=== PATIENT | male | born 1985 | race Caucasian/White ===

== ENCOUNTER 2017-08-13 11:34 | Outpatient (CLI) | payer MEDICAID, SELFPAY ==
[2017-08-13] VITALS (11 sets, daily range): BP systolic 97–110; BP diastolic 59–74; PULSE 70–87; RESP 16–18; TEMP 36.1–36.6; O2SAT 92–99; BMI 23.5
--- NOTE | 2017-08-13 11:55 | ED.VISSUMM ---
- ER Visit Summary Date of Service: 08/13/17 Chief Complaint: pulled pork stuck in my throat History of Present Illness: The patient is a 32 M no history of esophageal stenosis. Patient had several episodes in the past we had meat stuck in throat. He has had upper endoscopy and foreign body removed by Dr. Ga in the past. Patient states glucagon never works and does anymore try it. Physical Examination: Vital signs are stable, afebrile, actively retching. No respiratory distress. HEENT exam unremarkable. Posterior pharynx normal. Neck nontender lungs are clear equal symmetrical bilaterally. Heart regular rhythm no murmur. Abdomen soft nontender. Remedies moves all 4. Neurovascular intact. Neurologic exam unremarkable. Test Results: None Emergency Department Course and Treatment: IV will be started patient is refusing even to attempt to try glucagon. I have GI on page. Treatment Plan: I spoke to Dr. Ga who recognized the patient's name. Patient will be down endoscopy and Dr. Trinidad will come in for upper endoscopy for meat bolus impaction. Disposition: Discharge Impression: Acute esophageal food impaction History of esophageal stenosis ED Disposition - Plan for ED Patient: Chief Complaint: Foreign Body Referrals: NOT,DEFINED [NON-STAFF] -
--- NOTE | 2017-08-13 11:57 | NURSING ---
DR FERNANDEZ PAGED
--- NOTE | 2017-08-13 12:22 | PCA ---
DR FERNANDEZ CALLED FOR DR BILLS
--- NOTE | 2017-08-13 13:34 | PCM.OP.BLANK ---
Operative Report Date of Procedure: 08/13/17 Preop diagnosis: Patient with foreign body in the esophagus Postop diagnosis: EGD with foreign body removal Anesthesia: Provided the MAC Instrument: Instrument Olympus upper endoscope Informed consent was taken prior to procedure. The patient was brought to the endoscopy suite[ she] was placed left shoulder down. Retropharynx was sprayed with topical Cetacaine spray. Anesthesia provided the MAC. The scope was passed under direct visualization down into the esophagus. The proximal esophagus at about 18 cm was a foreign body. He was noted to have multiple rings consistent with eosinophilic esophagitis. Using a pair several pieces of the piece of meat were grasped and pulled away a tripod was also used several pieces of the meat were pulled away with a tripod. After several more pieces were removed with the snare the meat was dislodged down the esophagus multiple rings of the esophagus was passed all the way to the GE junction the Z line was 39 cm from incisors there was a hiatal hernia. Was easily insufflated the bulb of the duodenum was normal tubal rings packed inside at 18 cm was quite swollen and narrowed was withdrawn the patient tolerated procedure well Impression: Foreign body of the esophagus status post impaction with a snare and a tripod Plan: Patient needs to follow-up with his transition lead treatment for eosinophilic esophagitis he needs a dilatation.
--- NOTE | 2017-08-20 12:33 | PCM.PROGNOTE ---
Subjective: Foreign body in the esophagus - Physical Exam General: Alert, Oriented x3 HEENT: Atraumatic, EOMI, Normocephalic Cardiovascular: Regular rate, No murmurs Abdomen: Bowel Sounds Present, Soft, Non Tender Extremities: No edema, Capillary Refill Less than 3 Seconds Skin: No rashes - multiple tatooes, No breakdown Neurological: Cranial nerves II-XII grossly intact Psych/Mental Status: Normal Affect, Appropriate Vital Signs Temp Pulse Resp BP Pulse Ox 97.9 F 71 16 104/74 92 08/13/17 14:11 08/13/17 14:11 08/13/17 14:11 08/13/17 14:11 08/13/17 14:11 Oxygen Delivery Method Room Air Weight: 68.039 kg Body Mass Index (BMI) 23.5
--- NOTE | 2017-08-20 12:38 | PCM.HP.STD ---
History of Present Illness Date of Admission: 08/13/17 Chief Complaint: Foreign body in the esophagus The patient is a 32 year old M with a piece of meat stuck in the esophagus. He has a history of eosinophilic esophagitis. Has multiple visits to the emergency room with foreign bodies in the esophagus.] Past Medical History Allergies latex Allergy (Mild, Verified 08/13/17 11:37) Rash cyclobenzaprine HCl [From Flexeril] Allergy (Verified 08/13/17 11:37) Angioedema Home Medications: Ambulatory Orders Medication Instructions Recorded Albuterol Inhaler [Ventolin Hfa 2 puff INHALATION Q4H PRN PRN 11/19/15 (SP)] Lives: Alone Smoking Status: Current every day smoker - *Family History Maternal History Items: Unknown VTE Information - Inpt Only VTE Present on Admission: No - not indicated - Physical Exam General: Alert, Oriented x3, Cooperative HEENT: Atraumatic, PERRLA, EOMI, Normocephalic Neck: Supple, No JVD, Negative Carotid Bruits Lungs: Clear to auscultation, Normal air movement Cardiovascular: Regular rate, No murmurs Abdomen: Bowel Sounds Present, Soft, Non Tender Extremities: No edema, Capillary Refill Less than 3 Seconds Vital Signs Temp Pulse Resp BP Pulse Ox 97.9 F 71 16 104/74 92 08/13/17 14:11 08/13/17 14:11 08/13/17 14:11 08/13/17 14:11 08/13/17 14:11 Oxygen Delivery Method Room Air Weight: 68.039 kg Body Mass Index (BMI) 23.5 Assessment/Plan 32-year-old male with a foreign body in the esophagus he will undergo upper endoscopy in the endoscopy suite today
== END 2017-08-13 14:35 | disposition home health service (06) ==
PROVIDERS: Visit Provider Internal Medicine Gastroenterology
DX: T18.128A Food in esophagus causing other injury, initial encounter (principal); X58.XXXA Exposure to other specified factors, initial encounter; Y93.9 Activity, unspecified; Y92.9 Unspecified place or not applicable; Y99.9 Unspecified external cause status; K20.0 Eosinophilic esophagitis; K22.2 Esophageal obstruction; K44.9 Diaphragmatic hernia without obstruction or gangrene; J45.909 Unspecified asthma, uncomplicated; Z72.0 Tobacco use
CPT/HCPCS: 43247; J7120; A4216; J1610

== ENCOUNTER 2018-02-18 18:02 | Emergency (ER) | payer MEDICAID, SELFPAY ==
[2018-02-18 18:03] VITALS: BP 115/94; PULSE 106; RESP 18; TEMP 36.2; O2SAT 100; BMI 21.4
--- NOTE | 2018-02-18 18:29 | EKG12_ITS ---
Test Reason : [facility] Blood Pressure : / mmHG Vent. Rate : 070 BPM Atrial Rate : 070 BPM P-R Int : 120 ms QRS Dur : 100 ms QT Int : 378 ms P-R-T Axes : 066 070 069 degrees QTc Int : 408 ms Sinus rhythm with marked sinus arrhythmia Otherwise normal ECG Confirmed by MARS JARRELL, JAY ([id number]), industrial editor DORITA MANUEL ([id number] on 02/22/2018 11:17:44 AM Referred By: KADIE Confirmed By:JAY CREWS MD
[2018-02-18] MEDS: LORazepam 1 MG Tablet PO (18:46)
[2018-02-18 19:08] LABS: Absolute Lymphocyte Count 2.38 X10^3/ul (0.83-4.51); Absolute Neutrophil Count 5.4 X10^3/uL (2.0-7.7); Basophil# 0.03 X10^3/uL; Basophil% 0.4 % (0-1); Eosinophil# 0.08 X10^3/uL; Hematocrit 46.1 % (40-54); Hemoglobin 16.4 g/dl (13.0-16.5); Lymphocyte # 2.38 X10^3/ul (4.0); Lymphocyte % 28.6 % (19-41); Mean Corp Hgb Conc 35.6 g/gl (32-36); Mean Corpuscular Hgb 32.2 pg (27.0-32.0); Mean Corpuscular Volume 90.6 fL (80-94); Mean Platelet Vol. 9.5 fl (6.2-12.0); Monocyte# 0.41 X10^3/uL; Monocyte% 4.9 % (0-10); Neutrophil % 64.9 % (47-70); Platelet Count 260 K/mm3 (150-450); RBC Distribution Width CV 13.2 % (11.6-14.6); RBC Distribution Width SD 43.1 fl (35.1-43.9); Red Blood Count 5.09 M/mm3 (4.6-6.2); White Blood Count 8.3 K/mm3 (4.4-11.0)
[2018-02-18 19:21] LABS: POSITIVE COUNT NO; POSITIVE DIFFERENTIAL NO; POSITIVE MORPHOLOGY NO
[2018-02-18 19:34] LABS: ALB/GLOB Ratio 1.1 RATIO (0.9-2.4); AST(SGOT) 54 U/L (15-37); Alanine Aminotransfer ALT/SGPT 127 U/L (16-61); Albumin, Serum 4.3 g/dL (3.2-5.0); Alkaline Phosphatase 93 U/L (45-117); Anion Gap 8 (5-15); BUN 15 mg/dL (7-18); BUN/Creat Ratio 14.2 RATIO (10-20); Calcium,Total 9.2 mg/dL (8.5-10.1); Chloride 104 mmol/L (98-107); Creatinine, Serum 1.06 mg/dL (0.70-1.30); EST Glomerular Filtration Rate 85 mL/min (>60); Est Glom Filt Rate - Afr Amer 102 mL/min (>60); Estimated Creatinine Clearance 83.47 ml/min; Globulin 3.8 g/dL (2.2-4.2); Glucose 75 mg/dL (74-106); Potassium 3.9 mmol/L (3.5-5.1); Protein, Total 8.1 g/dL (6.4-8.2); Sodium Level 138 mmol/L (136-145); Thyroid Stim Hormone (TSH) 0.62 uIU/mL (0.358-3.74)
[2018-02-18 19:48] LABS: Alcohol, Blood (Medical)-Serum < 3.0 mg/dL
--- NOTE | 2018-02-18 20:22 | NURSING ---
PT CONTINUES TO REFUSE EKG.
[2018-02-18 21:13] VITALS: RESP 18
[2018-02-18 22:00] VITALS: RESP 16
--- NOTE | 2018-02-18 22:52 | ED.DCSUM_ITS ---
- ER Visit Summary Date of Service: 02/18/18 Chief Complaint: Suicidal ideation History of Present Illness: The patient is a 32 M with a history of paranoid schizophrenia. He is also a methamphetamine user. He has been using and is not sleeping. He reports increasing symptoms, mainly of depression and guilty feelings. He is having thoughts of hurting himself. He says he feels out of control. He was brought in by police and has been pink slipped. Physical Examination: Heart rate 106 but otherwise vitals unremarkable. Afebrile. Patient is mildly agitated and seems to be responding to internal stimuli. He reports suicidal thoughts but no plan. Heart tachycardic but regular. Lungs clear. Test Results: EKG showed a sinus rhythm at a rate of 70 with no acute ischemia or infarction patterns. His CBC was normal. CMP showed a total bilirubin of 1.9, ALT 127, and AST 54. Urinalysis pending. TSH normal. Tox screen pending. Alcohol normal. Emergency Department Course and Treatment: Patient took Ativan voluntarily. He is resting on reevaluation. He did have suicide precautions. I am still awaiting urinalysis and a urine tox, but the patient will clearly need inpatient care. I am awaiting a crisis evaluation at the time of this dictation. Treatment Plan: As above Disposition: Admission pending crisis evaluation Impression: 1. Psychosis 2. Suicidal ideation 3. Methamphetamine abuse This note was generated with [employer] dictation software. It may contain incorrect words, spelling, and punctuation that were not noted in review of the chart prior to signing ED Disposition - Plan for ED Patient: Chief Complaint: Suicidal Referrals: Care Physician,No Primary [Primary Care Provider] -
[2018-02-18 23:00] VITALS: RESP 18
[2018-02-19] VITALS (11 sets, daily range): BP systolic 101–105; BP diastolic 67–72; PULSE 64–69; RESP 14–20; O2SAT 15–99
[2018-02-19 02:57] LABS: Bacteria 0 SEEN /hpf (None Seen); Red Blood Cells-Urine 0 SEEN /hpf (0-5); Squamous Epithelial Cells - UA 0 SEEN /hpf (0-5)
[2018-02-19 02:59] LABS: Color, Urine Yellow (Yellow); Glucose, Dipstick Normal (Normal); Ketone-Dipstick 50 mg/dl (Negative); Leukocyte Esterase-Dipstick 25 /ul (Negative); Nitrite-Dipstick Negative (Negative); Occult Blood-Urine Negative /ul (Negative); Protein-Dipstick 15 mg/dl (Negative); Specific Gravity, Urine 1.015 (1.002-1.030); Urine Bilirubin Dipstick Negative (Negative); Urine Clarity Clear (Clear); Urine Urobilinogen 4 mg/dl (Normal); Urine pH 6.5 (5.0 - 8.0)
[2018-02-19 03:09] LABS: Mucous, Urine 3+ /hpf (<or=2+); Transitional Epithelial - Ur 0-5 SEEN /hpf (0-5); White Blood Cells 0-5 SEEN /hpf (0-5)
[2018-02-19 03:21] LABS: Amphetamine Urine VISTA POSITIVE (<1000 ng/mL); Barbiturate Urine VISTA NEGATIVE (< 200 ng/mL); Benzodiazepine Urine VISTA NEGATIVE (< 200 ng/mL); Cocaine Urine VISTA NEGATIVE (< 300 ng/mL); Ecstacy Urine VISTA POSITIVE (< 500 ng/mL); Methadone Urine VISTA NEGATIVE (< 300 ng/mL); PCP Urine VISTA NEGATIVE (< 25 ng/mL); THC Urine VISTA POSITIVE (< 50 ng/mL); Vista UDS pH Range 6
== END 2018-02-19 10:54 | disposition home or self-care (01) ==
PROVIDERS: Emergency Provider Emergency Medicine
DX: F29 Unspecified psychosis not due to a substance or known physiological condition (principal); R45.851 Suicidal ideations; F15.10 Other stimulant abuse, uncomplicated; F20.0 Paranoid schizophrenia; J45.909 Unspecified asthma, uncomplicated; Z86.19 Personal history of other infectious and parasitic diseases; Z79.899 Other long term (current) drug therapy; Z72.0 Tobacco use
CPT/HCPCS: 36415; 80053; 80307; 80320; 81001; 84443; 85025; 93005; 99283; G0480

== ENCOUNTER 2018-03-22 14:03 | Emergency (ER) | payer MEDICAID, SELFPAY ==
[2018-03-22 14:05] VITALS: BP 95/71; PULSE 80; PULSE 82; RESP 14; TEMP 36.7; O2SAT 99; BMI 20.8
[2018-03-22] MEDS: Propofol 200 MG/20 ML Vial IV BOLUS (14:57)
--- NOTE | 2018-03-22 15:08 | NURSING ---
ENDO IN THE ROOM
--- NOTE | 2018-03-22 15:09 | ED.VISSUMM ---
- ER Visit Summary Date of Service: 03/22/18 Chief Complaint: Pharyngeal obstruction secondary to food bolus History of Present Illness: The patient is a 32 M because of esophageal obstruction secondary to chicken food bolus. He has not been able to swallow his own secretions since 2200 last evening. This is occurred several times. He has never had to undergo dilation of esophagus. He denies fever, chills night sweats. He denies chest pain, cough or shortness of breath. He has no other complaints. Please read written note for complete detail Physical Examination: Vital signs are unremarkable. Head is atraumatic normocephalic. Pupils are equal round reactive. Extraocular muscles are intact. TMs are pearly white with landmarks noted. Nares patent with no drainage. Posterior pharynx without erythema or exudate. Uvula is midline. There is no dysphonia or dysphasia. Trachea is midline. There is no stridor with auscultation of the neck. Heart is regular without murmur, gallop or rub. S1 and S2 are normal. Lungs are clear to auscultation with good movement of air bilaterally. Neuro exam is nonfocal. Patient is expectorating his saliva into a emesis bag because he cannot swallow. Test Results: None Emergency Department Course and Treatment: Dr. Waldrop was paged and he states he would see patient for emergent EGD to remove obstructing chicken food bolus. He requested sedation with propofol. Patient was consented for sedation with propofol. He denies allergy to soy products or egg products. He has had no complication with prior sedation. He was given opportunity ask questions and none were asked. He has not eaten or had anything to drink since last evening. Total time of procedure 13 minutes 45 seconds. Patient received multiple boluses of propofol to achieve desired effect for Dr. Waldrop to remove chicken obstructing food bolus proximal esophagus. Treatment Plan: Carafate slurry 4 times a day and follow-up with Dr. Waldrop in 1 week Disposition: Once patient is able to answer questions and walk on his own he will be discharged to home with significant other Impression: Proximal esophageal obstruction secondary to food bolus, chicken This note was generated with [employer] dictation software. It may contain incorrect words, spelling, and punctuation that were not noted in review of the chart prior to signing ED Disposition - Plan for ED Patient: Disposition: Home or Assisted Living Chief Complaint: Foreign Body Instructions: ED Foreign Body Esophageal Rslv Prescriptions: Sucralfate [Carafate] 1 gm PO 4X/DAY #60 tab Referrals: Care Physician,No Primary [Primary Care Provider] - Malik Waldrop MD [STAFF PHYSICIAN] - 1 Week Additional Instructions: Liquid diet for the next 5-7 days then advance as tolerated
[2018-03-22 15:10] VITALS: BP 125/79; BP 97/71; PULSE 70; RESP 14
[2018-03-22 15:15] VITALS: BP 102/65; BP 125/79; PULSE 68
--- NOTE | 2018-03-22 15:16 | PCM.HP.STD ---
Problem List (1) Foreign body in esophagus Status: Acute Qualifiers: Encounter type: sequela Qualified Code(s): T18.108S - Unspecified foreign body in esophagus causing other injury, sequela History of Present Illness Date of Admission: 03/22/18 The patient is a 32 M because of esophageal obstruction secondary to chicken food bolus. He has not been able to swallow his own secretions since 2200 last evening. This is occurred several times. He has never had to undergo dilation of esophagus. He denies fever, chills night sweats. He denies chest pain, cough or shortness of breath. He has no other complaints. Patient reports that he has had numerous foreign bodies over this past year and has undergone numerous esophagogastroduodenoscopies with removal of his foreign bodies. He states that he has a tortuous esophagus for which nothing can be done. In reading [address] Ga's previous notes he was noted to have a eosinophilic esophagitis and he recommended a balloon dilatation. Past Medical History Past Medical History (Chronic Problems): Chronic Problems Unspecified mood [affective] disorder (Chronic) Methamphetamine addiction (Chronic) Asthma (Chronic) Hepatitis C (Chronic) Tobacco dependence (Chronic) Dysphasia (Chronic) Eosinophilic esophagitis (Chronic) Allergies latex Allergy (Mild, Verified 03/22/18 14:04) Rash cyclobenzaprine HCl [From Flexeril] Allergy (Verified 03/22/18 14:04) Angioedema Home Medications: Ambulatory Orders Medication Instructions Recorded Albuterol Inhaler [Ventolin Hfa] 2 puff INHALATION Q4H PRN PRN 11/19/15 Asenapine Maleate [Saphris] 10 mg SUBLINGUAL QHS 09/17/17 Fluticasone Propionate [Flovent 2 puff INHALATION DAILY 09/17/17 Hfa] Atomoxetine HCl [Strattera] 40 mg PO DAILY 02/19/18 Sucralfate [Carafate] 1 gm PO 4X/DAY #60 tab 03/22/18 Surgical History: tonsillectomy, - - Previous EGDs with foreign body removal Smoking Status: Current every day smoker - *Family History Maternal History Items: No pertinent history Paternal History Items: Unknown Review of Systems Constitutional: Denies: Chills, Fever, Weight Change Cardiovascular: Denies: Chest Pain, Chest Pressure, Chest Tightness, Palpitations Respiratory: Denies: Cough, Hemoptysis, Shortness of breath at rest, Shortness of breath upon exertion, Wheezing Gastrointestinal: Denies: Abdominal Pain, Constipation, Diarrhea, Hematemesis, Nausea, Melena, Vomiting VTE Information - Inpt Only VTE Present on Admission: No VTE Mechan Device Prophylaxis: None VTE Pharm Prophylaxis ordered?: No Reason prophylaxis not ordered:: Treatment Not Indicated Patient Problems: Active and Suspected Problems Foreign body in esophagus (Acute) - Physical Exam General: Alert, Oriented x3 Neck: Supple, No JVD Lungs: Clear to auscultation Cardiovascular: Regular rate, Regular Rhythm, No murmurs Abdomen: Bowel Sounds Present, Soft, Non Tender, Non-Distended Vital Signs Temp Pulse Resp BP Pulse Ox 98.0 F 82 14 95/71 99 03/22/18 14:05 03/22/18 14:05 03/22/18 14:05 03/22/18 14:05 03/22/18 14:05 Oxygen Delivery Method Room Air Weight: 129 lb 3.054 oz Body Mass Index (BMI) 20.8 Assessment/Plan Active and Suspected Problems Foreign body in esophagus (Acute) My plan is perform esophagogastroduodenoscopy and removal foreign body. I reviewed potential risk with the patient being bleeding and infection and most severe esophageal perforation. I did inform him that if I were to perforate him I would have to send him to a tertiary referral center for repair. He understood these risks and was willing to proceed.
[2018-03-22 15:20] VITALS: BP 106/67; BP 125/79; PULSE 75; O2SAT 98
--- NOTE | 2018-03-22 15:21 | PCM.OPRPT ---
Problem List (1) Foreign body in esophagus Status: Acute Qualifiers: Encounter type: sequela Qualified Code(s): T18.108S - Unspecified foreign body in esophagus causing other injury, sequela Report of Operation Date of Procedure: 03/22/18 Pre-Operative Diagnosis: T18.108S esophageal foreign body sequela of encounters Post-Operative Diagnosis: Same Surgery/Procedure Performed:: [id number] esophagogastroduodenoscopy with removal of foreign body Type of Anesthesia:: MAC Anesthesiologist: Corky Coleman Description of Procedure: Patient was brought into the emergency department in room 1. The back of his throat was sprayed with benzocaine spray. A bite-block was placed. He was placed in the left lateral decubitus position. He was given graded anesthesia. The Olympus scope was inserted into the back of the oropharynx and directly down into the esophagus where I immediately met a form body of chicken which had been properly chewed. I took several pieces of this out with a tripod. Loosened it up significantly to where the remaining small amounts of tissue were easily able to be pushed down through the remaining part of the esophagus and into the stomach. I cleared the entire esophagus. He did have some irritation in the upper esophagus but no signs of linear tears in the remaining part of the esophagus did look normal. It did appear to have some diffuse spasming. The stomach all appeared normal as did the duodenum. There was no signs of any lesions. The esophagus itself easily was traversed there was no signs of any stricturing or possible need for dilatation. I am going to see this patient back in follow-up. I think he would benefit from esophageal manometry to see how his esophagus is functioning. - Admit VTE Documentation VTE Present on Admission: No VTE Mechan Device Prophylaxis: None VTE Pharm Prophylaxis ordered?: No Reason prophylaxis not ordered:: Treatment Not Indicated
--- NOTE | 2018-03-22 15:24 | ED.RN ---
At 1500 Endo was at bedside for procedure. Endo staff did all procedural charting. Dr. Waldrop and Dr. Coleman at bedside for procedure.
[2018-03-22 15:25] VITALS: BP 105/69; BP 125/79; PULSE 66; O2SAT 96
[2018-03-22 15:52] VITALS: BP 95/70; PULSE 61; RESP 13; O2SAT 96
--- NOTE | 2018-03-22 15:59 | NURSING ---
Pt back to baseline. A&Ox3. GCS 15. Pt given discharge instructions and clothes to get dressed. Pt denies questions. Pt's girlfriend checked in as a patient as well and requested him to go to her room when he was done. Pt updated. Pt sent to room 13 with girlfriend.
== END 2018-03-22 16:01 | disposition home or self-care (01) ==
PROVIDERS: Surgery; Emergency Provider Emergency Medicine
PROC: 0DJ08ZZ Inspection of Upper Intestinal Tract, Via Natural or Artificial Opening Endoscopic (ICD-10-PCS; CPT 43235; principal; 2018-03-22 14:55)
DX: K22.2 Esophageal obstruction (principal); T18.108S Unspecified foreign body in esophagus causing other injury, sequela; Z72.0 Tobacco use
CPT/HCPCS: 43247; 99285; J7030

== ENCOUNTER 2018-08-05 02:44 | Emergency (ER) | payer SELFPAY ==
[2018-08-05] VITALS (16 sets, daily range): BP systolic 96–137; BP diastolic 47–95; PULSE 61–95; RESP 14–20; TEMP 36.7; O2SAT 95–100; BMI 22.2
[2018-08-05 03:01] LABS: Absolute Lymphocyte Count 2.18 X10^3/ul (0.83-4.51); Absolute Neutrophil Count 4.3 X10^3/uL (2.0-7.7); Basophil# 0.06 X10^3/uL; Basophil% 0.8 % (0-1); Eosinophil# 0.35 X10^3/uL; Eosinophils% 4.7 % (0-5); Hematocrit 42.2 % (40-54); Hemoglobin 15.4 g/dl (13.0-16.5); Lymphocyte # 2.18 X10^3/ul (4.0); Lymphocyte % 29.3 % (19-41); Mean Corp Hgb Conc 36.5 g/gl (32-36); Mean Corpuscular Hgb 32.8 pg (27.0-32.0); Mean Platelet Vol. 9.6 fl (6.2-12.0); Monocyte# 0.51 X10^3/uL; Monocyte% 6.9 % (0-10); Neutrophil # 4.33 X10^3/uL (2.7-7.7); Neutrophil % 58.2 % (47-70); Platelet Count 221 K/mm3 (150-450); RBC Distribution Width CV 12.4 % (11.6-14.6); RBC Distribution Width SD 40.3 fl (35.1-43.9); Red Blood Count 4.69 M/mm3 (4.6-6.2); White Blood Count 7.4 K/mm3 (4.4-11.0)
[2018-08-05 03:04] LABS: POSITIVE COUNT NO; POSITIVE DIFFERENTIAL NO; POSITIVE MORPHOLOGY NO
[2018-08-05] MEDS: LORazepam 1 MG Tablet PO ×2 (03:13→19:35)
--- NOTE | 2018-08-05 03:16 | ED.RN ---
SITTER AT THE BEDSIDE
[2018-08-05 03:19] LABS: Anion Gap 12 (5-15); BUN 14 mg/dL (7-18); BUN/Creat Ratio 14.7 RATIO (10-20); Calcium,Total 9.2 mg/dL (8.5-10.1); Chloride 106 mmol/L (98-107); Creatinine, Serum 0.95 mg/dL (0.70-1.30); EST Glomerular Filtration Rate 96 mL/min (>60); Est Glom Filt Rate - Afr Amer 116 mL/min (>60); Estimated Creatinine Clearance 99.01 ml/min; Glucose 143 mg/dL (74-106); Potassium 2.8 mmol/L (3.5-5.1); Sodium Level 144 mmol/L (136-145)
--- NOTE | 2018-08-05 03:39 | ED.DCSUM_ITS ---
- ER Visit Summary Date of Service: 08/05/18 Chief Complaint: Suicidal ideation History of Present Illness: The patient is a 33 M who presents with suicidal thoughts. He has had these for 2 days. He states that he cut himself on the left wrist 2 days ago. He is hearing voices in his head telling him to kill yourself. He takes no medications at home. He has diagnosed schizophrenic. He was admitted once before for this. He is established at the [facility] but missed last month's appointment because the skilled nursing would not take him to his appointment. Physical Examination: Vital signs reviewed. HEENT exam unremarkable. Heart is regular rate and rhythm without murmurs. Lungs are clear to auscultation. Abdomen is soft and nontender. Extremities reveal no edema. Skin exam reveals superficial lacerations to the left wrist. They do not need to be repaired. Neurologic exam normal. Psychiatric exam reveals suicidal thoughts. He has poor insight and poor judgment. He does not appear to be internally stimulated at this time. Test Results: Screening labs are negative except for potassium of 2.8. Tox screen alcohol negative Emergency Department Course and Treatment: Patient was discussed with crisis. Patient will likely be transferred to [facility] Treatment Plan: [] Disposition: Transfer Impression: Suicidal ideation This note was generated with [employer] dictation software. It may contain incorrect words, spelling, and punctuation that were not noted in review of the chart prior to signing ED Disposition - Plan for ED Patient: Chief Complaint: Suicidal Referrals: Care Physician,No Primary [Primary Care Provider] -
[2018-08-05 04:22] LABS: Amphetamine Urine VISTA NEGATIVE (<1000 ng/mL); Barbiturate Urine VISTA NEGATIVE (< 200 ng/mL); Benzodiazepine Urine VISTA NEGATIVE (< 200 ng/mL); Cocaine Urine VISTA NEGATIVE (< 300 ng/mL); Ecstacy Urine VISTA NEGATIVE (< 500 ng/mL); Methadone Urine VISTA NEGATIVE (< 300 ng/mL); PCP Urine VISTA NEGATIVE (< 25 ng/mL); THC Urine VISTA NEGATIVE (< 50 ng/mL); Vista UDS pH Range 6
[2018-08-05 04:44] LABS: Alcohol, Blood (Medical)-Serum < 3.0 mg/dL
--- NOTE | 2018-08-05 06:19 | ED.RN ---
THIS NURSE SPOKE WITH THE NURSE AT [facility]. REQUESTING K+ BE TREATED AND REDRAWN. WILL NOT ACCEPT UNLESS POTASSIUM IS 3.5 OR ABOVE
--- NOTE | 2018-08-05 07:41 | ED.RN ---
PT PLACED ON SENIOR BUSINESS PROCESS ANALYST D/T K RIDERS INFUSING. SITTER AT BEDSIDE
--- NOTE | 2018-08-05 09:26 | ED.RN ---
[facility] CALLED AND SAID [facility] IS WAITING ON POTASIUM RESULTS THEN THEY WILL DECIDE IF THEY CAN TAKE THE PATIENT.
[2018-08-05 12:04] LABS: Potassium 3.4 mmol/L (3.5-5.1)
--- NOTE | 2018-08-05 12:51 | ED.RN ---
[facility] CALLED FOR VERIFICATION THAT PT IS IN ER. PT GAVE CONSENT TO INFORM COURTS OF STATUS.
[2018-08-05 14:33] LABS: Potassium 3.7 mmol/L (3.5-5.1)
== END 2018-08-05 20:24 | disposition short-term general hospital (02) ==
PROVIDERS: Emergency Medicine; Emergency Provider Emergency Medicine
DX: R45.851 Suicidal ideations (principal); Z72.0 Tobacco use
CPT/HCPCS: 36415; 80048; 80307; 80320; 84132; 85025; 96365; 96366; 99285; J7030; A4216; G0480

== ENCOUNTER 2019-08-12 00:54 | Emergency (ER) | payer MEDICAID, SELFPAY ==
[2019-08-12] VITALS (9 sets, daily range): BP systolic 91–144; BP diastolic 54–89; PULSE 57–88; RESP 14–22; TEMP 37.1; O2SAT 94–100; BMI 22.9
--- NOTE | 2019-08-12 01:03 | ED.DCSUM_ITS ---
History of Present Illness Chief Complaint: Foreign Body Informant: Patient Onset: Today Context: Sudden Onset Timing: Continuous Current Severity: Moderate Maximum Severity: Moderate Narrative: The patient presents complaining of esophageal foreign body. The patient has a history of prior esophageal foreign body. He states he was at [facility]. He was eating an apple. He states that a piece got stuck. He states he has been unable to swallow because of it. He has had this multiple times before. He states that his last endoscopy was about 2 years ago. He states that he has a twirling esophagus. He denies other injury. He denies any fevers or chills. He is otherwise been in his normal state of health. Prior similar symptoms: Yes Recent Illness/Hospitalization: No Past Medical History - Allergies and Home Meds Allergies/Adverse Reactions: Allergies latex Allergy (Mild, Verified 08/12/19 00:54) Rash cyclobenzaprine HCl [From Flexeril] Allergy (Verified 08/12/19 00:54) Angioedema Primary Care Physician: Care Physician,No Primary [Primary Care Provider] - Prior records reviewed: Yes Past Medical History: - - Bipolar disorder Surgical History: tonsillectomy, - - Previous EGDs with foreign body removal Smoking Status: Current every day smoker - Family History Maternal Family History: Reports: No pertinent history Paternal Family History: Reports: Unknown Review of Systems General: Denies: Chills, Fever, Sweats Eyes: Denies: Visual changes - bilaterally, Diplopia ENT: Denies: Rhinorrhea, Sore throat Cardiovascular: Denies: Chest pain, Palpitations Respiratory: Denies: Dyspnea, Cough, Dyspnea on exertion Gastrointestinal: Denies: Abdominal pain, Nausea, Vomiting, Diarrhea, Melena, Hematochezia Genitourinary: Denies: Dysuria, Hematuria, Frequency Musculoskeletal: Denies: Back pain, Extremity Pain Skin: Denies: Rash, Wounds Neurological: Denies: Headache, Weakness, Numbness Physical Exam Vital Signs/Narrative: Vital Signs Temp Pulse Resp BP Pulse Ox 08/12/19 00:55 98.7 F 88 17 144/89 H 98 Inital Vital Signs reviewed: Yes General: Well nourished, Well developed, No Acute Distress Head: Normocephalic, Atraumatic Eyes: Perrl, EOMI ENT: Moist mucous membranes, No rhinorrhea Neck: Supple, Nontender Cardiovascular: Regular rate, Regular rhythm, No murmurs Respiratory: No distress, CTA bilaterally, Chest nontender Abdomen: Soft, Nontender, Nondistended, Normal bowel sounds Back: Nontender, Normal Inspection Extremities: Nontender, No edema Skin: Normal color, No rash Neurological: Alert, Oriented x3, Cranial nerves II-XII grossly intact, Normal Strength, Normal Sensation Psychological: Normal affect, Normal Mood Diagnostic/Tx/Re-eval - Medical Decision Making IV was established. The patient was given fluids and glucagon. He had no resolution. We did attempt [employer] with no prevail. I did discuss the patient with Dr. Waldrop, on-call for surgery who had done endoscopy on the patient before. He did come in. The patient underwent conscious sedation by myself. He was given 100 mg total of propofol. The foreign body was able to be pushed through. The patient had no complications of sedation. At this point, he will be discharged home with outpatient follow-up. Impression 1. Esophageal foreign body 2. Conscious sedation by ED physician ED Disposition - Plan for ED Patient: Instructions: ESOPHAGEAL FOREIGN BODY, Resolved Referrals: Alexis Vazquez MD [NON-STAFF] - Malik Waldrop MD [STAFF PHYSICIAN] -
[2019-08-12] MEDS: Glucagon 1 MG/ML Syringe IV (01:08)
[2019-08-12] MEDS: 0.9% Normal Saline 1,000 ML 250 ML IV (01:11)
--- NOTE | 2019-08-12 02:29 | ED.RN ---
dr kenney at the bedside going over risk and benefits with pt. pt signed permit.
[2019-08-12] MEDS: Propofol 200 MG/20 ML Vial IV BOLUS (02:33)
--- NOTE | 2019-08-12 02:43 | OP.ENDO_ITS ---
08/12/2019 No Primary Care Physician Re : Upper GI endoscopy procedure for Josafat Alvarenga Dear Care Physician This procedure was performed on Monday, August 12, 2019. My impressions and recommendations are as follows: Impressions : - Food in the lower third of the esophagus. Removal was successful. - Normal stomach. No specimens collected. - Normal duodenal bulb. No specimens collected. Recommendations : - Discharge patient to home. - Mechanical soft diet today. - Continue present medications. - Repeat upper endoscopy PRN for retreatment. - Return to primary care physician PRN. My findings are described in the full procedure note, which is enclosed. If I can be of further assistance, please feel free to contact me at Doctor phone number(s): , Fax: [phone], Work: . Sincerely, MD Malik Tompkins MD 08/12/2019 2:42:46 AM This report has been signed electronically.
--- NOTE | 2019-08-12 02:46 | HP.PCM_ITS ---
Problem List (1) Foreign body in esophagus Status: Acute Qualifiers: Encounter type: subsequent encounter Qualified Code(s): T18.108D - Unspecified foreign body in esophagus causing other injury, subsequent encounter History of Present Illness Date of Admission: 08/12/19 The patient presents complaining of esophageal foreign body. The patient has a history of prior esophageal foreign body. He states he was at [facility]. He was eating an apple. He states that a piece got stuck. He states he has been unable to swallow because of it. He has had this multiple times before. He states that his last endoscopy was about 2 years ago. He states that he has a twirling esophagus. He denies other injury. He denies any fevers or chills. He is otherwise been in his normal state of health. Past Medical History Past Medical History (Chronic Problems): Chronic Problems Unspecified mood [affective] disorder (Chronic) Methamphetamine addiction (Chronic) Asthma (Chronic) Hepatitis C (Chronic) Tobacco dependence (Chronic) Dysphasia (Chronic) Eosinophilic esophagitis (Chronic) Allergies latex Allergy (Mild, Verified 08/12/19 00:54) Rash cyclobenzaprine HCl [From Flexeril] Allergy (Verified 08/12/19 00:54) Angioedema Home Medications: Ambulatory Orders Medication Instructions Recorded NK 08/05/18 Surgical History: tonsillectomy, - - Previous EGDs with foreign body removal Psychiatric History: No pertinent psych hx Smoking Status: Current every day smoker Tobacco Use: Cigarettes - *Family History Maternal History Items: No pertinent history Paternal History Items: Unknown Review of Systems Gastrointestinal: Reports: Nausea, Vomiting VTE Information - Inpt Only VTE Present on Admission: No VTE Mechan Device Prophylaxis: None VTE Pharm Prophylaxis ordered?: No Reason prophylaxis not ordered:: Treatment Not Indicated - Physical Exam General: Alert, Oriented x3 Lungs: Clear to auscultation Cardiovascular: Regular rate, Regular Rhythm, No murmurs Abdomen: Bowel Sounds Present, Soft, Non Tender, Non-Distended Vital Signs Temp Pulse Resp BP Pulse Ox 98.7 F 67 16 101/62 96 08/12/19 00:55 08/12/19 02:42 08/12/19 02:42 08/12/19 02:42 08/12/19 02:42 Oxygen Flow Rate (L/min) [3] 4 Oxygen Delivery Method [3] Nasal Cannula Oxygen Delivery Method [2] Nasal Cannula Oxygen Delivery Method [1 ( Nasal Cannula Initial Baseline)] Oxygen Delivery Method Room Air Weight: 146 lb 6.191 oz Body Mass Index (BMI) 22.9 Assessment/Plan All Active Problems Foreign body in esophagus (Acute) ARF (acute renal failure) (Acute) Right arm cellulitis (Acute)
[2019-08-12] MEDS: DiphenhydrAMINE 25 MG Capsule 50 MG PO (03:09)
== END 2019-08-12 04:00 | disposition home or self-care (01) ==
PROVIDERS: Surgery; Emergency Provider Emergency Medicine
PROC: 0DJ08ZZ Inspection of Upper Intestinal Tract, Via Natural or Artificial Opening Endoscopic (ICD-10-PCS; CPT 43235; principal; 2019-08-12 02:30)
DX: T18.128A Food in esophagus causing other injury, initial encounter (principal); T18.108A Unspecified foreign body in esophagus causing other injury, initial encounter; F17.200 Nicotine dependence, unspecified, uncomplicated; F31.9 Bipolar disorder, unspecified; Z91.040 Latex allergy status; J45.909 Unspecified asthma, uncomplicated; B18.2 Chronic viral hepatitis C
CPT/HCPCS: 43247; 99285; J7030; A4216; J1610

== ENCOUNTER 2019-09-22 21:34 | Emergency (ER) | payer MEDICAID, SELFPAY ==
[2019-08-12 00:55] VITALS: BMI 22.9
[2019-09-22 21:36] VITALS: BP 139/75; PULSE 86; RESP 16; TEMP 36.6; O2SAT 98; BMI 21.9
--- NOTE | 2019-09-22 21:45 | ED.DCSUM_ITS ---
History of Present Illness Chief Complaint: Fall Informant: Patient Onset: Today Context: Sudden Onset Timing: Continuous Current Severity: Moderate Maximum Severity: Moderate Narrative: The patient presents to the emergency department with back pain and hip pain after fall. Patient states that he slipped over his dog. He ended up sliding down 14 stairs. He struck his back and his left hip. Since then, he has had pain and spasm. He did not strike his head. He denies loss of consciousness. The patient does have a history of prior narcotic abuse but has been clean for some time. He denies any fevers or chills. Prior similar symptoms: No Recent Illness/Hospitalization: No Past Medical History - Allergies and Home Meds Allergies/Adverse Reactions: Allergies latex Allergy (Mild, Verified 09/22/19 21:37) Rash cyclobenzaprine HCl [From Flexeril] Allergy (Verified 09/22/19 21:37) Angioedema Primary Care Physician: Care Physician,No Primary [Primary Care Provider] - Prior records reviewed: Yes Past Medical History: - Surgical History: tonsillectomy, - - Previous EGDs with foreign body removal Smoking Status: Current every day smoker - Family History Maternal Family History: Reports: No pertinent history Paternal Family History: Reports: Unknown Review of Systems General: Denies: Chills, Fever, Sweats Eyes: Denies: Visual changes - bilaterally, Diplopia ENT: Denies: Rhinorrhea, Sore throat Cardiovascular: Denies: Chest pain, Palpitations Respiratory: Denies: Dyspnea, Cough, Dyspnea on exertion Gastrointestinal: Denies: Abdominal pain, Nausea, Vomiting, Diarrhea, Melena, Hematochezia Genitourinary: Denies: Dysuria, Hematuria, Frequency Musculoskeletal: Denies: Back pain, Extremity Pain Skin: Denies: Rash, Wounds Neurological: Denies: Headache, Weakness, Numbness Physical Exam Vital Signs/Narrative: Vital Signs Temp Pulse Resp BP Pulse Ox 09/22/19 21:36 97.9 F 86 16 139/75 H 98 Inital Vital Signs reviewed: Yes General: Well nourished, Well developed, No Acute Distress Head: Normocephalic, Atraumatic Eyes: Perrl, EOMI ENT: Moist mucous membranes, No rhinorrhea Neck: Supple, Nontender Cardiovascular: Regular rate, Regular rhythm, No murmurs Respiratory: No distress, CTA bilaterally, Chest nontender Abdomen: Soft, Nontender, Nondistended, Normal bowel sounds Back: Normal Inspection, Spinal tenderness Extremities: Nontender, No edema Skin: Normal color, No rash Neurological: Alert, Oriented x3, Cranial nerves II-XII grossly intact, Normal Strength, Normal Sensation Psychological: Normal affect, Normal Mood Diagnostic/Tx/Re-eval Clinical Impression(s) from Imaging Studies Elbow X-Ray 09/22/19 22:10 IMPRESSION: Normal x-ray examination of the elbow. Electronically Signed: Magaly Bustamante MD at 22:27 EST Tel , Service support , - Medical Decision Making Patient presents to the emergency department after a fall. He did not strike his head. He denies loss of consciousness. Plain films were obtained the patient's hip, spine, and elbow. There is no acute fracture. He did have improvement with IM Toradol. I will continue the patient on anti- inflammatories. He is comfortable with this plan of care and will be discharged home. Impression 1. Lumbar contusion status post fall 2. Left hip contusion status post fall 3. Left elbow contusion status post fall ED Disposition - Plan for ED Patient: Instructions: FALL, Mechanical Prescriptions: Naproxen [Naprosyn] 500 mg PO BID PRN #20 tab Prescription Printed Referrals: Care Physician,No Primary [Primary Care Provider] -
[2019-09-22] MEDS: Ketorolac 60 MG/2 ML Vial IM (22:07)
--- NOTE | 2019-09-22 22:10 | RAD_ITS ---
STUDY: X-RAY - LUMBAR SPINE REASON FOR EXAM: Male, 34 years old. Left-sided pain status post fall TECHNIQUE: 3 view(s) of the lumbar spine were obtained. COMPARISON: None FINDINGS: Normal lumbar lordosis. There is no substantial scoliosis. There is a normal alignment of the vertebrae. There is a visualized pars defect L5-S1 with minimal anterolisthesis. Normal disc space heights. The soft tissue structures are unremarkable. RAD/Lumbar Spine 2 or 3 Views IMPRESSION: Chronic pars interarticularis defect L5-S1 with no significant anterolisthesis. Electronically Signed: Magaly Bustamante MD at 22:41 EST Tel , Service support ,
--- NOTE | 2019-09-22 22:10 | RAD_ITS ---
STUDY: X-RAY - LEFT ELBOW REASON FOR EXAM: Male, 34 years old. Left-sided pain status post fall TECHNIQUE: 3 view(s) of the elbow. COMPARISON: None. FINDINGS: Normal visualized humerus, radius and ulna. Normal radiocapitellar and ulnotrochlear articulations. The soft tissue structures are unremarkable. RAD/Elbow min 3 Views IMPRESSION: Normal x-ray examination of the elbow. Electronically Signed: Magaly Bustamante MD at 22:27 EST Tel , Service support ,
--- NOTE | 2019-09-22 22:10 | RAD_ITS ---
STUDY: X-RAY - PELVIS AND LEFT HIP REASON FOR EXAM: Male, 34 years old. Pain status post fall TECHNIQUE: 3 views of the pelvis and hip. COMPARISON: AP pelvis July 02, 2017 FINDINGS: There is a non-specific bowel gas pattern. Normal visualized soft tissue structures. Normal bilateral iliac wings, sacroiliac joints and visualized sacrum. Normal bilateral superior and inferior pubic rami. Normal pubic symphysis. Normal bilateral ischial tuberosities. Bilateral hips: Normal visualized femoral head. Normal acetabulum. Normal hip joint. There is incidental visualization of bilateral sclerotic densities in the proximal left femur suggesting small bone island similar to the prior studies. There is a visualized pars defect at L5-S1. RAD/HIP, UNI W/ Pelvis 2-3 Views IMPRESSION: Pars defect L5-S1. No visualized acute fracture. Electronically Signed: Magaly Bustamante MD at 22:39 EST Tel , Service support ,
== END 2019-09-22 22:40 | disposition home or self-care (01) ==
LOC: ED 21:53
PROVIDERS: Emergency Provider Emergency Medicine
DX: S30.0XXA Contusion of lower back and pelvis, initial encounter (principal); S50.02XA Contusion of left elbow, initial encounter; S70.02XA Contusion of left hip, initial encounter; W19.XXXA Unspecified fall, initial encounter; F17.200 Nicotine dependence, unspecified, uncomplicated; Z91.040 Latex allergy status; W01.198A Fall on same level from slipping, tripping and stumbling with subsequent striking against other object, initial encounter; Y93.9 Activity, unspecified; Y92.89 Other specified places as the place of occurrence of the external cause; Y99.9 Unspecified external cause status
CPT/HCPCS: 72100; 73080; 73502; 96372; 99282

== ENCOUNTER 2024-10-21 01:49 | Emergency (ER) | payer MEDICAID, SELFPAY ==
[2024-10-21 01:50] VITALS: BP 155/96; PULSE 90; RESP 16; TEMP 36.8; O2SAT 99; BMI 26.6
[2024-10-21 01:53] VITALS: BMI 26.6
--- NOTE | 2024-10-21 02:41 | CT_ITS ---
EXAM: CT HEAD WITHOUT INTRAVENOUS CONTRAST CLINICAL INDICATION: left sided numbness TECHNIQUE: Multiple axial images were obtained of the head without intravenous contrast. This CT exam was performed using one or more of the following dose reduction techniques: automated exposure control, adjustment of the mA and/or kV according to patient size, and/or use of iterative reconstruction technique. RADIATION DOSE: Total DLP: 779.24 mGy-cm. COMPARISON: No relevant prior studies available. FINDINGS: BRAIN AND EXTRA-AXIAL SPACES: Unremarkable. No intra- or extra-axial hemorrhage. No evidence of acute infarct. No intracranial mass or mass effect. There is preservation of the tong/white matter interface. Posterior fossa structures are unremarkable. Ventricles are appropriate for age. No hydrocephalus. Basal cisterns are patent. BONES/JOINTS: Unremarkable. No discrete lytic or blastic abnormalities. SINUSES: Small incidental retention cyst in the right maxillary antrum. Mild mucosal thickening within the ethmoid air cells, extending into the inferior frontal sinuses. No paranasal sinus air-fluid levels. MASTOID AIR CELLS: Unremarkable. Clear. ORBITS: Visualized globes, extraocular muscles, optic nerves and retrobulbar fat appear unremarkable. OTHER: The middle cerebral arteries are not hyperdense. CT/Brain/Head without Contrast IMPRESSION: No acute findings in the head/brain. Mild ethmoid and frontal sinus mucosal thickening. Electronically Signed: Jhony Lin MD at 4:58 EST ,
--- NOTE | 2024-10-21 02:41 | EKG12_ITS ---
Test Reason : NEURO Blood Pressure : */* mmHG Vent. Rate : 88 BPM Atrial Rate : 88 BPM P-R Int : 138 ms QRS Dur : 102 ms QT Int : 392 ms P-R-T Axes : 22 17 51 degrees QTcB Int : 474 ms Normal sinus rhythm Normal ECG Confirmed by MARS JARRELL, JAY ([id number]), make up editor YOSSI BURGER ([id number]) on 10/21/2024 8:20:06 AM Referred By: Confirmed By: JAY CREWS MD
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
[2024-10-21 03:02] LABS: Absolute Lymphocyte Count 2.76 X10^3/uL (0.83-4.51); Absolute Neutrophil Count 3.7 X10^3/uL (2.0-7.7); Basophil# 0.07 X10^3/uL; Basophil% 0.9 % (0-1); Eosinophil# 0.71 X10^3/uL; Eosinophils% 8.9 % (0-5); Hematocrit 42.2 % (40-54); Hemoglobin 15.2 g/dL (13.0-16.5); Lymphocyte # 2.76 X10^3/ul (0.83-4.51); Lymphocyte % 34.5 % (19-41); Mean Corpuscular Hgb 31.7 pg (27.0-32.0); Mean Corpuscular Volume 87.9 fL (80-94); Mean Platelet Vol. 10.6 fl (6.2-12.0); Monocyte# 0.76 X10^3/uL; Monocyte% 9.5 % (0-10); NRBC Flagged by Analyzer 0 % (0-5); Neutrophil # 3.69 X10^3/uL (2.7-7.7); Platelet Count 258 K/mm3 (150-450); RBC Distribution Width CV 12.2 % (11.6-14.6); RBC Distribution Width SD 39.3 fl (35.1-43.9)
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
[2024-10-21 03:21] LABS: Anion Gap 8 (5-15); BUN 20 mg/dL (7-18); BUN/Creat Ratio 17.7 RATIO (10-20); Calcium,Total 9.3 mg/dL (8.5-10.1); Chloride 102 mmol/L (98-107); Creatinine, Serum 1.13 mg/dL (0.70-1.30); EST Glomerular Filtration Rate 76 mL/min (>60); Est Glom Filt Rate - Afr Amer 92 mL/min (>60); Estimated Creatinine Clearance 77.63 ml/min; Glucose 110 mg/dL (74-106); Potassium 3.2 mmol/L (3.5-5.1); Sodium Level 136 mmol/L (136-145)
== END 2024-10-21 03:21 | disposition left against medical advice (07) ==
LOC: ED 03:21
PROVIDERS: Emergency Provider Emergency Medicine; Visit Provider Emergency Medicine
DX: R20.2 Paresthesia of skin (principal); F41.9 Anxiety disorder, unspecified; F17.210 Nicotine dependence, cigarettes, uncomplicated
CPT/HCPCS: 70450; 80048; 85025; 93005; 99284; A4216

== ENCOUNTER 2024-11-25 18:34 | Emergency (ER) | payer MEDICAID, SELFPAY ==
[2024-11-25 18:35] VITALS: BP 140/102; PULSE 116; RESP 18; TEMP 37.2; O2SAT 98; BMI 26.6
--- NOTE | 2024-11-25 18:44 | ED.RN ---
pt states he is not staying.
== END 2024-11-25 18:47 | disposition left against medical advice (07) ==
LOC: ED 18:56
DX: R69 Illness, unspecified (principal)

== ENCOUNTER 2025-01-05 19:07 | Emergency (ER) | payer MEDICAID, SELFPAY ==
[2025-01-05 19:09] VITALS: BP 124/85; PULSE 93; RESP 16; TEMP 36.7; O2SAT 98; BMI 26.5
== END 2025-01-05 20:41 | disposition left against medical advice (07) ==
LOC: ED 20:41
DX: Z53.21 Procedure and treatment not carried out due to patient leaving prior to being seen by health care provider (principal)

== ENCOUNTER 2025-03-12 03:36 | Emergency (ER) | payer MEDICAID, SELFPAY ==
[2025-03-12 03:36] VITALS: BP 149/94; PULSE 93; RESP 17; TEMP 36.6; O2SAT 98; BMI 28.5
[2025-03-12] MEDS: Lorazepam 2 MG/ML WCH Syringe 1 MG IV (03:46)
[2025-03-12 03:56] LABS: Absolute Lymphocyte Count 2.55 X10^3/uL (0.83-4.51); Absolute Neutrophil Count 6.1 X10^3/uL (2.0-7.7); Eosinophil# 0.88 X10^3/uL; Eosinophils% 8.5 % (0-5); Hematocrit 42.5 % (40-54); Hemoglobin 15.4 g/dL (13.0-16.5); Lymphocyte # 2.55 X10^3/ul (0.83-4.51); Lymphocyte % 24.8 % (19-41); Mean Corp Hgb Conc 36.2 g/dL (32-36); Mean Corpuscular Hgb 31.4 pg (27.0-32.0); Mean Corpuscular Volume 86.7 fL (80-94); Monocyte# 0.67 X10^3/uL; Monocyte% 6.5 % (0-10); NRBC Flagged by Analyzer 0 % (0-5); Neutrophil # 6.06 X10^3/uL (2.7-7.7); Neutrophil % 58.8 % (47-70); Platelet Count 311 K/mm3 (150-450); RBC Distribution Width CV 12.7 % (11.6-14.6); RBC Distribution Width SD 39.8 fl (35.1-43.9); White Blood Count 10.3 K/mm3 (4.4-11.0)
[2025-03-12] MEDS: Morphine 4 MG/ML Syringe IV (03:56)
[2025-03-12] MEDS: 0.9% Normal Saline (1000mL) 1,000 ML 999 ML IV (03:56)
--- NOTE | 2025-03-12 03:56 | EDS_ITS ---
HPI History of Present Illness Chief Complaint: Foreign Body Informant: patient and spouse/S.O. Narrative Narrative: Patient is a 39-year-old female with past medical history of asthma and tobacco abuse. He also reports a past history of esophageal stricture and previous esophageal obstructions. He states his last obstruction was roughly 1 month ago and he required an endoscopy to remove the foreign body. He states roughly 20 to 30 minutes prior to arrival he was eating fried chicken when it fell like it became stuck. He denies any trouble breathing but states that he cannot swallow food or fluid or his own saliva without having to spit it out or have bouts of vomiting. With concern he has repeat esophageal obstruction he presents for evaluation [facility] Medical History Foreign body in throat History of intravenous drug abuse Erectile dysfunction Hepatitis C Marijuana smoker Home Medications ?Medication ?Instructions ?Recorded ?Last Taken ?Type albuterol sulfate 90 mcg/actuation 2 puff inhalation Q 4H PRN PRN 03/12/25 Unknown History aerosol inhaler shortness of breath or wheez ing paliperidone palmitate 234 mg/1.5 234 mg IM Q30D 03/12 Unknown History mL intramuscular syringe (Invega Sustenna) Allergy/AdvReac Type Severity Reaction Status Date / Time latex Allergy Mild Rash Verified 03/12/25 03:36 cyclobenzaprine HCl (From Allergy Angioedema Verified 03/12/25 03:36 Flexeril) Social History Smoking Status: Current every day smoker tobacco type: cigarettes ROS ROS ED Constitutional Constitutional ED: Denies chills or fever(s) Eyes Eyes: Denies change in vision ENT ENT ED: Denies sore throat Cardiovascular Cardiovascular: Denies chest pain Respiratory/Chest Respiratory/Chest: Denies cough or dyspnea Gastrointestinal Gastrointestinal: Reports nausea and vomiting; Denies abdominal pain or diarrhea Musculoskeletal Musculoskeletal: Denies neck pain Integumentary Denies rash Neurologic Neurologic: Denies headache(s) Hematologic/Lymphatic Hematologic/Lymphatic: Denies easy bleeding or easy bruising Allergic/Immunologic Allergic/Immunologic ED: Denies mouth swelling or tongue swelling EXAM Physical Exam Const Vital Signs: 03/12/25 03:36 03/12/25 03:36 Temperature 98 F Temperature Source Temporal Pulse Rate 93 Respiratory Rate 17 Respiratory Effort Normal Non-Labored Blood Pressure 149/94 H Blood Pressure Mean 112 Pulse Ox 98 Oxygen Delivery Method Room Air Positive well nourished and well developed General Appearance ED: well developed; Negative for pallor HEENT Reports moist mucous membranes HEENT Narrative: No tongue or lip swelling no oral lesions no airway edema or compromise No secondary findings in the posterior pharynx to suggest infection Eyes PERRL and EOMs intact bilaterally General Eye ED: Negative for scleral icterus Neck supple Neck Narrative: No subcutaneous emphysema noted Resp normal respiratory effort Resp Narrative: Breath sounds are diminished throughout with faint expiratory wheeze consistent with history of asthma and smoking No signs of respiratory distress Cardio regular rate and regular rhythm GI normal to inspection, nondistended, normoactive bowel sounds, non-tender, non- distended and no masses Auscultation: normoactive bowel sounds Palpation: soft Extremity normal to inspection Neuro oriented x3, CN's II-XII intact bilaterally and no sensory deficits noted Sensorium / Orientation: alert Motor Exam: strength 5/5 throughout Psych mental status grossly normal Skin no rashes or lesions noted General Skin Exam: Negative for jaundice or pallor MDM MDM MDM Narrative Medical decision making narrative: Patient arrived to the ER hypertensive but otherwise with stable vitals. He reported that this happened roughly 1 month ago and he required EGD. He states that he is scheduled to see a GI physician in [place] to discuss need for esophageal dilation. At this time he has no signs of respiratory distress and my concern that there is a tracheal foreign body is low. There is no crepitance palpated so I have low concern for pneumomediastinum. The patient was given IV hydration as well as morphine Ativan and glucagon. After receiving his medications he did have spontaneous resolution of his foreign body and was able to drink/tolerate an oral challenge in the ER without recurrent bouts of vomiting. This indicates that the esophageal foreign body has spontaneous resolved. Therefore there is no need for emergent GI consultation or EGD and patient can follow-up as an outpatient to discuss esophageal dilation History & Record Review Discussion w/independent historian: Patient and Significant other Lab Data Attestation: I reviewed the patient's lab results. Labs: Laboratory Results - last 24 hr 03/12/25 03:42 WBC 10.3 RBC 4.90 Hgb 15.4 Hct 42.5 MCV 86.7 MCH 31.4 MCHC 36.2 H RDW Std Deviation 39.8 RDW Coeff of Jeffrey 12.7 Plt Count 311 MPV 9.0 Immature Gran % (Auto) 0.400 Neut % (Auto) 58.8 Lymph % (Auto) 24.8 [place] % (Auto) 6.5 Eos % (Auto) 8.5 H Baso % (Auto) 1.0 Absolute Neuts (auto) 6.1 Absolute Lymphs (auto) 2.55 Nucleated RBC % 0 Sodium 137 Potassium 3.0 L Chloride 101 Carbon Dioxide 23.5 Anion Gap 13 BUN 5 Creatinine 1.00 Estim Creat Clear Calc 100.02 Est GFR (MDRD) Non-Af 97 BUN/Creatinine Ratio 5.2 L Glucose 123 H Calcium 9.2 Discharge Plan Triage Chief Complaint: Foreign Body ED Provider: Gildardo Rubio Dx/Rx/DC Orders Clinical Impression: Esophageal foreign body, Hepatitis C, Asthma, Tobacco dependence Instructions: ED Esophageal Foreign Body, Resolved Prescriptions: No Action albuterol sulfate 90 mcg/actuation HFA aerosol inhaler 2 puff inhalation Q4H PRN PRN (Reason: shortness of breath or wheezing) Invega Sustenna 234 mg/1.5 mL syringe 234 mg IM Q30D Primary Care Provider: Care Physician,No Primary Referrals: Rafiq,Anderson, DO [Med Staff - Active Staff] - (Recurrent esophageal foreign bodies) Care Physician,No Primary [Primary Care Provider] - Activity Restrictions/Additional Instructions: Please follow-up with gastroenterology to discuss need for esophageal dilation based on your recurrent episodes of esophageal foreign bodies. If you have any further concerns or worsening of symptoms please return to the ER for repeat evaluation Print Language: Greek Disposition Disposition: Home, Self Care
[2025-03-12] MEDS: Ondansetron 4 MG/2 ML Vial IV (03:57)
[2025-03-12 04:23] LABS: Anion Gap 13 (5-15); BUN 5 mg/dL (4-19); BUN/Creat Ratio 5.2 RATIO (10-20); Calcium,Total 9.2 mg/dL (7.6-11.0); Carbon Dioxide 23.5 mmol/L (21.0-32.0); Chloride 101 mmol/L (98-108); EST Glomerular Filtration Rate 97 (>60); Estimated Creatinine Clearance 100.02 ml/min (50-250); Glucose 123 mg/dL (70-99); Sodium Level 137 mmol/L (133-145)
[2025-03-12] MEDS: Glucagon 1 MG/ML Syringe IV (04:41)
[2025-03-12 05:14] VITALS: BP 134/86; PULSE 69; RESP 14; TEMP 36.7; O2SAT 99
== END 2025-03-12 05:15 | disposition home or self-care (01) ==
PROVIDERS: Emergency Provider Emergency Medicine; Visit Provider Emergency Medicine
DX: T18.128A Food in esophagus causing other injury, initial encounter (principal); B19.20 Unspecified viral hepatitis C without hepatic coma; J45.909 Unspecified asthma, uncomplicated; F17.210 Nicotine dependence, cigarettes, uncomplicated; W44.F3XA Food entering into or through a natural orifice, initial encounter
CPT/HCPCS: 80048; 85025; 96361; 96374; 96375; 99283; A4216; J1610; J2405

== ENCOUNTER 2025-05-01 19:25 | Emergency (ER) | payer MEDICAID, SELFPAY ==
[2025-05-01 19:26] VITALS: BP 156/94; PULSE 114; RESP 18; TEMP 36.4; O2SAT 98; BMI 27.7
--- NOTE | 2025-05-01 19:46 | ED.VIS.GI ---
HPI HPI - GI History of Present Illness Chief Complaint: Constipation Abdominal Pain/Flank Pain Onset: Days (4) Context: Gradual Onset Timing: Continuous Quality: - (Pounding) Location: Diffuse Worsened by: - (Drinking) Relieved by: Nothing Nausea/Vomiting/Emesis GI Symptom: Negative for Nausea or Vomiting Diarrhea/Melena/Hematochezia GI Symptom: Negative for Diarrhea, Melena or Hematochezia Associated Symptoms Associated Symptoms: Negative for Dysuria, Frequency or Hematuria Narrative Narrative: Patient presents with constipation that has been constant for the past 4 days. Patient states he has diffuse pain across his abdomen. Patient states his pain is worse when he tries to drink anything. Patient states nothing makes it better. Patient states he has not tried any [id number] laxatives. Patient denies any nausea or vomiting. Patient denies any fevers or chills. Patient denies any neck pain but admits to some lower back pain. Patient denies any dysuria, frequency, or hematuria. [facility] Medical History (Updated 05/01/25 @ 21:[address] Ramo Heck DO) Paranoid schizophrenia Foreign body in throat History of intravenous drug abuse Erectile dysfunction Hepatitis C Marijuana smoker Home Medications ?Medication ?Instructions ?Recorded ?Last Taken ?Type albuterol sulfate 90 mcg/actuation 2 puff inhalation Q4H PRN PRN 03/12/25 Unknown History aerosol inhaler shortness of breath or wheezing paliperidone palmitate 234 mg/1.5 234 mg IM Q30D 03/12/25 Unknown History mL intramuscular syringe (Invega Sustenna) polyethylene glycol 3350 17 17 g PO DAILY #119 grams 05/01/25 Unknown Rx gram/dose oral powder (Miralax) Allergy/AdvReac Type Severity Reaction Status Date / Time latex Allergy Mild Rash Verified 05/01/25 19:25 cyclobenzaprine HCl (From Allergy Angioedema Verified 05/01/25 19:25 Flexeril) Surgical History no surgical history no surgical history Social History Smoking Status: Current every day smoker tobacco type: cigarettes ROS ROS ED Constitutional Constitutional ED: Reports chills; Denies fever(s) Eyes Eyes: Denies blurry vision or change in vision ENT ENT ED: Denies rhinorrhea or sore throat Cardiovascular Cardiovascular: Denies chest pain or palpitations Respiratory/Chest Respiratory/Chest: Reports cough; Denies dyspnea Gastrointestinal Gastrointestinal: Reports abdominal pain and constipation; Denies nausea or vomiting Genitourinary Genitourinary ED: Denies dysuria or hematuria Musculoskeletal Musculoskeletal: Reports back pain; Denies neck pain Integumentary Denies abscess or rash Neurologic Neurologic: Denies headache(s) or weakness Allergic/Immunologic Allergic/Immunologic ED: Denies mouth swelling or urticaria EXAM Physical Exam Const Vital Signs: 05/01/25 19:26 05/01/25 21:25 Temperature 97.6 F L Temperature Source Temporal Pulse Rate 114 H 92 Respiratory Rate 18 16 Blood Pressure 156/94 H 130/74 H Blood Pressure Mean 114 92 Pulse Ox 98 97 Oxygen Delivery Method Room Air Positive well nourished and well developed General Appearance ED: well developed and NAD HEENT Reports moist mucous membranes Neck supple and no JVD Resp normal respiratory effort and clear to auscultation bilaterally Cardio regular rate and regular rhythm GI non-distended Palpation: soft and tender LLQ, RLQ, periumbilical and suprapubic; Negative for guarding or rebound tenderness present Extremity full ROM General Extremety ED: Negative for edema or tenderness General Extremity: Negative for edema Neuro CN's II-XII intact bilaterally, moves all extremities and no sensory deficits noted Sensorium / Orientation: alert Motor Exam: strength 5/5 throughout Psych mental status grossly normal MDM MDM MDM Narrative Medical decision making narrative: Differential diagnosis includes bowel obstruction, perforation, constipation, dehydration, and electrolyte abnormality. Acute abdominal x-rays will be obtained to assess for bowel obstruction, perforation, and constipation. CBC will be obtained to assess for leukocytosis and pneumonia. Basic metabolic profile indicated obtained to assess for electrolyte abnormality and renal function. Lab Data Attestation: I reviewed the patient's lab results. Lab results narrative: CBC was reviewed and was within normal limits. Basic metabolic profile was reviewed and was essentially within normal limits. Labs: Laboratory Results - last 24 hr 05/01/25 20:02 WBC 9.1 RBC 4.93 Hgb 15.6 Hct 44.3 MCV 89.9 MCH 31.6 MCHC 35.2 RDW Std Deviation 40.8 RDW Coeff of Jeffrey 12.3 Plt Count 253 MPV 9.6 Immature Gran % (Auto) 0.300 Neut % (Auto) 70.1 H Lymph % (Auto) 17.9 L [place] % (Auto) 5.5 Eos % (Auto) 5.5 H Baso % (Auto) 0.7 Absolute Neuts (auto) 6.4 Absolute Lymphs (auto) 1.62 Nucleated RBC % 0 Sodium 138 Potassium 3.5 Chloride 103 Carbon Dioxide 23.5 Anion Gap 11 BUN 4 Creatinine 0.89 Estim Creat Clear Calc 110.96 Est GFR (MDRD) Non-Af 110 BUN/Creatinine Ratio 4.1 L Glucose 121 H Calcium 8.9 Radiography Diagnostic Testing: Clinical Impression(s) from Imaging Studies Acute Abdomen Series 05/01/25 20:04 IMPRESSION: Fecal retention in the colon consistent with constipation. Reading Location: [facility] Acute abdominal x-rays were obtained. There are 5 views. On my independent interpretation, there is no evidence of obstruction or perforation. There is no free air or air-fluid levels. There is stool in the colon consistent with constipation. Radiologist also interpreted the x-rays and agrees. Treatment and Re-Evaluation :: Patient was given a soapsuds enema here. Patient had some results with this. Patient was feeling better on reevaluation. Patient was given a prescription for MiraLAX. Patient was instructed to use [id number] fiber supplements and stool softeners as needed. Patient was instructed to follow-up with the primary care physician in 5 to 7 days. Patient understood and was agreeable with the plan. All questions were answered. Discharge Plan Triage Chief Complaint: Constipation ED Provider: Ramo Heck Dx/Rx/DC Orders Clinical Impression: Constipation Instructions: ED Constipation (Adult) Prescriptions: New polyethylene glycol 3350 [Miralax] 17 gram/dose powder 17 g PO DAILY Qty: 119 0RF No Action albuterol sulfate 90 mcg/actuation HFA aerosol inhaler 2 puff inhalation Q4H PRN PRN (Reason: shortness of breath or wheezing) Invega Sustenna 234 mg/1.5 mL syringe 234 mg IM Q30D Primary Care Provider: Care Physician,No Primary Referrals: Care Physician,No Primary [Primary Care Provider] - Comfort Recinos Ranjit, [employer]GR[employer] REPORTER-C [[facility]] - 5-7 Days Print Language: Setswana Disposition Disposition: Home, Self Care
[2025-05-01] MEDS: 0.9% Normal Saline (1000mL) 1,000 ML 999 ML IV (20:02)
--- NOTE | 2025-05-01 20:04 | RAD_ITS ---
EXAM: XR Abdomen, 2 Views and XR Chest, 1 View CLINICAL INDICATION: PAIN TECHNIQUE: Frontal view of the chest, frontal view of the abdomen/pelvis and upright or decubitus view of the abdomen. COMPARISON: No relevant prior studies available. FINDINGS: LUNGS AND PLEURAL SPACES: Unremarkable. No consolidation. No pneumothorax. HEART: Unremarkable. No cardiomegaly. MEDIASTINUM: Unremarkable. Normal mediastinal contour. INTRAPERITONEAL SPACE: No free air. GASTROINTESTINAL TRACT: Fecal retention in the colon consistent with constipation. No dilation. BONES/JOINTS: Unremarkable. No acute fracture. RAD/Acute Abdomen Inc Chest IMPRESSION: Fecal retention in the colon consistent with constipation. Reading Location: [facility]
[2025-05-01 20:20] LABS: Absolute Lymphocyte Count 1.62 X10^3/uL (0.83-4.51); Absolute Neutrophil Count 6.4 X10^3/uL (2.0-7.7); Basophil# 0.06 X10^3/uL; Basophil% 0.7 % (0-1); Eosinophils% 5.5 % (0-5); Hematocrit 44.3 % (40-54); Hemoglobin 15.6 g/dL (13.0-16.5); Lymphocyte # 1.62 X10^3/ul (0.83-4.51); Lymphocyte % 17.9 % (19-41); Mean Corp Hgb Conc 35.2 g/dL (32-36); Mean Corpuscular Hgb 31.6 pg (27.0-32.0); Mean Corpuscular Volume 89.9 fL (80-94); Mean Platelet Vol. 9.6 fl (6.2-12.0); Monocyte% 5.5 % (0-10); NRBC Flagged by Analyzer 0 % (0-5); Neutrophil # 6.35 X10^3/uL (2.7-7.7); Neutrophil % 70.1 % (47-70); Platelet Count 253 K/mm3 (150-450); RBC Distribution Width CV 12.3 % (11.6-14.6); RBC Distribution Width SD 40.8 fl (35.1-43.9); Red Blood Count 4.93 M/mm3 (4.6-6.2); White Blood Count 9.1 K/mm3 (4.4-11.0)
--- OUTSIDE RECORDS SUMMARY | 2025-05-01 20:31 | XMS RPT_ITS | CCD ---
Author Organization [facility] Care Team Providers Care Purchasing Agent Name Role Phone Javier JARRELL, Carmen Rossi Unavailable PROVIDER, UNKNOWN Unavailable Unavailable No, PCP Unavailable Unavailable Nelly Cagle Unavailable Unavailable Marce Barrientos Unavailable Unavailable PROVIDER, UNKNOWN Unavailable Unavailable No, PCP Unavailable Unavailable Unavailable Primary Care Provider UnavailShyam Peres Primary Care Provider Unavailable Primary Care Provider UnavailShyam Peres Primary Care Provider Hunter COLLISION TECHNICIAN-DIRECTOR OF HOTEL OPERATIONSShyam Primary Care Provider Hunter COLLISION TECHNICIAN-DIRECTOR OF HOTEL OPERATIONS, Shyam Rosenbaum Primary Care Provider SHYAM HARRISON Primary Care Unavailable LIRA, HORTENCIA Attending Unavailable LIRA, HORTENCIA Referring Unavailable SHYAM HARRISON Primary Care Unavailable LIRA, HORTENCIA Attending Unavailable LIRA, HORTENCIA Referring Unavailable SHYAM HARRISON Primary Care Unavailable LIRA, HORTENCIA Attending Unavailable LIRA, HORTENCIA Referring Unavailable SHYAM HARRISON Primary Care Unavailable LIRA, HORTENCIA Attending Unavailable LIRA, HORTENCIA Referring Unavailable SHYAM HARRISON Primary Care Unavailable LIRA, HORTENCIA Attending Unavailable SHYAM HARRISON Referring Unavailable SHYAM HARRISON Primary Care Unavailable LIRA, HORTENCIA Attending Unavailable LIRA, HORTENCIA Referring Unavailable SHYAM HARRISON Primary Care Unavailable LIRA, HORTENCIA Attending Unavailable LIRA, HORTENCIA Referring Unavailable SHYAM HARRISON Primary Care Unavailable LIRA, HORTENCIA Attending Unavailable LIRA, HORTENCIA Referring Unavailable SHYAM HARRISON Primary Care Unavailable SHYAM HARRISON Primary Care Unavailable WILLIAM CEE Attending Unavailable SHYAM HARRISON Primary Care Unavailable HARPAL GUDINO Attending Unavailable SHYAM HARRISON Primary Care Unavailable SHYAM HARRISON Primary Care Unavailable SHYAM HARRISON Referring Unavailable SHYAM HARRISON Attending Unavailable SHYAM HARRISON Primary Care Unavailable Emmanuel Gonzalez MD Primary Care Provider Emmanuel Gonzalez MD Primary Care Provider JUSTUS BEAN JR Attending Unavaila ble STEVEN MEAD, JUSTUS PAUL Admitting Unavaila EMMANUEL Samuels Primary Care Unavailab EMMANUEL Robles Primary Care Unavailab SONIA Pryor Attending Unavailable ASHLYN JARRELL, DR COX Primary Care Physician GILL BAXTER MD Attending Unavailable ASHLYN JARRELL, DR COX Primary Care Unavailab le Unavailable Primary Care Provider UnavailKAREN Armas Attending Unavailable FAUZIA SORENSON Referring Unavailable PHYSICIAN, NONE Primary Care Physician Unavailab Doreen Smith Unavailable Unavailable PHYSICIAN, NONE Primary Care Unavailable ADONAY DONNELYL MD Consulting Unavailable JARVIS KNOWLES DO Attending Unavailable MARGIE JARRELL, FROYLAN Brown Attending Unavail able ASHLYN JARRELL, DR COX Primary Care Unavailab joni HANSON MD, FROYLAN Brown Attending Unavail able ASHLYN JARRELL, DR COX Primary Care Unavailab le SHAREE, STEFFIOPHER B Primary Care Unavailab le SAHREE, CHRISTOPHER B Primary Care Unavailab FAUZIA Magana Attending Unavailable STEFFI GONZALEZOPHER B Primary Care Unavailab FAUZIA Magana Attending Unavailable SHAREE CHRISTOPHER B Primary Care Unavailab COMFORT Ricks Referring Unavailable AIMEELEY, CHRISTOPHER B Primary Care Unavailab FAUZIA Magana Attending Unavailable FAUZIA SORENSON Attending Unavailable TIM GONZALEZER B Primary Care Unavailab SONIA Pryor Referring Unavailable AIMEELEY, CHRISTOPHER B Primary Care Unavailab le SHAREE, CHRISTOPHER B Primary Care Unavailab le PHYSICIAN, NONE Primary Care Unavailable JERAMIE BRUNER MD Admitting Unavailable ZOHREH JARRELL, JERAMIE Attending Unavailable MIKHAIL LORA MD Consulting Unavaila Gildardo Camargo Attending Unavailable Care Physician, No Primary Primary Care Unava ilable Care Physician, No Primary Primary Care Unava ilable Provider, Ed Physician Attending Unavailab le Care Physician, No Primary Primary Care Unava ilable Provider, Ed Physician Attending Unavailab le Care Physician, No Primary Primary Care Unava ilable Freddy Batres Attending Unavailable Allergies Allergy Classification Reported Allergen(s) Allergy Type Date of Onset Reaction(s) Facility (20 sources) cyclobenzaprine; Translations: [cyclobenzaprine] Drug Allergy 08-18-20 18 Anaphylaxis [facility] (20 sources) Latex; Translations: [LATEX] Propensity to adverse reactions to drug 10-25-20 05 Anaphylaxis, Rash, Hives, Itching, Shortness of Breath [facility] (20 sources) cyclobenzaprine; Translations: [CYCLOBENZAPRINE HCL] Drug Allergy 12-17-19 15 Intolerance [facility] (1 source) cyclobenzaprine Drug Allergy 03-12-20 [facility] (1 source) Latex Drug allergy (disorder) 03-12-20 [facility] Repository Medications Current Medications Medication Drug Class(es) Dates Sig (Normalized) Sig (Original) 5 ML paliperidone palmitate 312 MG/ML Prefilled Syringe [Invega] (3 sources) Start: 03-17-2024 Invega Hafyera 1560 mg/5 mL intramuscular suspension, extended release Dose : 1,560 mg =, Intramuscular, q6mo, shake well before using, # 5 mL, 0 Refill(s) Start Date: 03/17/24 Status: Ordered Quantity: 5.0 Unit: mL Repeat number: 1 Start: 03-17-2024 Invega Hafyera 1560 mg/5 mL intramuscular suspension, extended release Dose : 1,560 mg =, Intramuscular, q6mo, shake well before using, # 5 mL, 0 Refill(s) Start Date: 03/17/24 Status: Ordered [id number] 200 actuat albuterol 0.09 mg/actuat metered dose inhaler (20 sources) beta2-Adrenergic Agonist Start: 03-25-2024 take 2 puff(s) by inhalation every four hours as needed for wheezing albuterol HFA (PROVENTIL HFA, VENTOLIN HFA) 90 mcg/actuation inhaler Inhale 2 Puffs as instructed every 4 hours as needed for wheezing/shortness of breath. 8 g 03/25/2024 Active Start: 11-29-2022 take 2 puff(s) by in halation every four hours as needed for wheezing Albuterol 108 (90 Base) MCG/ACT Aero Soln inhaler Inhale 2 puffs every 4 hours as needed for Wheezing. 18 g 0 11/29/2022 Active Start: 06-19-2022 take 1 puff(s) by in halation every six hours as needed for cough albuterol (Ventolin HFA) 108 (90 Base) MCG/ACT Aero Soln inhaler Inhale 1 puff every 6 hours as needed for Shortness of Breath, Cough or Wheezing. 18 g 2 06/19/2022 Active Start: 01-10-2022 take 1 puff(s) by in halation every six hours as needed for cough albuterol (Ventolin HFA) 108 (90 Base) MCG/ACT Aero Soln inhaler Inhale 1 puff every 6 hours as needed for Shortness of Breath, Cough or Wheezing. 18 g 6 01/10/2022 Active Start: 09-23-2021 End: 01-10-2022 take 2 puff(s) by inhalation every six hours as needed for wheezing albuterol 108 (90 Base) MCG/ACT Aero Soln inhaler Indications: Mild persistent asthma without complication Inhale 2 puffs every 6 hours as needed for Shortness of Breath or Wheezing. 18 g 6 09/23/2021 01/10/2022 Discontinued Start: 02-03-2020 End: 09-23-2021 take 2 puff(s) by inhalation every six hours as needed for wheezing albuterol HFA (PROVENTIL HFA, VENTOLIN HFA) 90 mcg/actuation inhaler Inhale 2 Puffs as instructed every 6 hours as needed for Wheezing/Shortness of Breath. 1 Inhaler 2 02/03/2020 Active Comment on above: Inhale 2 Puffs as in structed every 6 hours as needed for Wheezing/Shortness of Breath. albuterol 108 (90 Base) MCG/ACT Aero Soln inhaler (8 sources) Start: take 2 puff(s) by inhalation every six hours as needed for wheezing albuterol 108 (90 Base) MCG/ACT Aero Soln inhaler Indications: Mild persistent asthma without complication Inhale 2 puffs every 6 hours as needed for Shortness of Breath or Wheezing. 1 Inhaler 3 02/16/2021 Active Start: 09-09-2020 End: 02-16-2021 take 2 puff(s) by inhalation every six hours as needed for wheezing albuterol 108 (90 Base) MCG/ACT Aero Soln inhaler Indications: Mild persistent asthma without complication Inhale 2 puffs every 6 hours as needed for Shortness of Breath or Wheezing. 1 Inhaler 3 09/09/2020 02/16/2021 Discontinued (Reorder) Start: 09-09-2020 take 2 puff(s) by in halation every six hours as needed for wheezing albuterol 108 (90 Base) MCG/ACT Aero Soln inhaler Indications: Mild persistent asthma without complication Inhale 2 puffs every 6 hours as needed for Shortness of Breath or Wheezing. 1 Inhaler 3 09/09/2020 Active Start: 02-03-2020 End: 09-09-2020 take 2 puff(s) by inhalation every six hours as needed albuterol 108 (90 Base) MCG/ACT Aero Soln inhaler Inhale 2 puffs Every 6 hours as needed. 0 02/03/2020 09/09/2020 Discontinued (Reorder) Start: 02-03-2020 take 2 puff(s) by in halation every six hours as needed albuterol 108 (90 Base) MCG/ACT Aero Soln inhaler Inhale 2 puffs Every 6 hours as needed. 0 02/03/2020 Active albuterol MDI (90 mcg/inh) CFC free inhalation aerosol (3 sources) Start: 06-14-2014 take 2 puff(s) by inhalation four times daily albuterol MDI (90 mcg/inh) CFC free inhalation aerosol 2 puff(s), Inhalation, QID Start Date: 06/14/14 Status: Ordered Repeat number: 1 Start: 06-14-2014 take 2 puff(s) by in halation four times daily albuterol MDI (90 mcg/inh) CFC free inhalation aerosol 2 puff(s), Inhalation, QID Start Date: 06/14/14 Status: Ordered ALPRAZolam 0.25 mg oral tablet (3 sources) Benzodiazepine Start: 08-17-2014 Xanax 0.25 mg oral tablet Dose : 0.25 mg = 1 tab(s), Oral, qDay Start Date: 08/17/14 Status: Ordered Repeat number: 1 ARIPiprazole 10 mg oral tablet (3 sources) Atypical Antipsychotic Start: 06-14-2014 Abilify 10 mg oral tablet Dose : 10 mg = 1 tab(s), Oral, Daily Start Date: 06/14/14 Status: Ordered Repeat number: 1 atomoxetine 100 mg oral capsule (20 sources) Norepinephrine Reuptake Inhibitor Start: 02-01-2022 atomoxetine 100 mg oral capsule Dose : 100 mg = 1 cap(s), Oral, qAM, 0 Refill(s) Start Date: 03/17/24 Status: Ordered Repeat number: 1 Comment on above: Take 100 mg by mouth once daily. benzonatate 100 mg oral capsule (5 sources) Non-narcotic Antitussive Start: 08-28-2024 take 1 capsule by mouth every eight hours as needed benzonatate (TESSALON PERLES) 100 mg capsule Take 1 capsule by mouth three times a day as needed for cough. 21 capsule 08/28/2024 Active benztropine mesylate 2 mg oral tablet (20 sources) Anticholinergic, Antihistamine Start: 09-22-2019 take 1 tablet by mouth three times daily benztropine (COGENTIN) 2 mg tablet Take 2 mg by mouth three times a day. 09/22/2019 Active End: 08-28-2024 take 1 tablet by mouth three times daily benztropine (COGENTIN) 1 mg tablet Take 1 mg by mouth three times daily. 08/28/2024 Discontinued (Other) Comment on above: Take 1 mg by mouth t hree times daily. buprenorphine 4 mg / naloxone 1 mg sublingual film (20 sources) Partial Opioid Agonist, Opioid Antagonist Start: 09-14-2021 Buprenorphine 4 mg/naloxone 1 mg SL film DISSOLVE 1 FILM UNDER THE TONGUE ONCE DAILY 0 09/14/2021 Active Start: 08-03-2021 Buprenorphine HCl-Naloxone HCl 12-3 MG Film DISSOLVE 1 FILM UNDER TONGUE ONCE DAILY 0 08/03/2021 Active cloNIDine hydrochloride 0.1 mg oral tablet (20 sources) Central alpha-2 Adrenergic Agonist Start: 04-19-2023 take 1 tablet by mouth twice daily cloNIDine HCl (CATAPRES) 0.1 mg tablet Take 0.1 mg by mouth twice daily. 04/19/2023 Active Start: 08-17-2021 take 1 tablet by shadia twice daily cloNIDine 0.1 MG tablet Take 1 tablet by mouth 2 times daily. 0 08/17/2021 Active Comment on above: Take 0.1 mg by mouth twice daily. diphenhydrAMINE hydrochloride 2.5 mg/ml oral solution (20 sources) Histamine-1 Receptor Antagonist take 20 mL by mouth once daily diphenhydrAMINE 12.5 MG/5ML elixir Take 20 mL by mouth daily. 0 Active doxycycline monohydrate 100 mg oral capsule (3 sources) Tetracycline-class Drug Start: 04-29-20 End: 05-06-20 take 1 capsule by mouth twice daily doxycycline monohydrate (MONODOX) 100 mg capsule Take 1 capsule by mouth two times a day for 7 days. 14 capsule 0 04/29/2024 05/06/2024 Active Start: 04-04-2024 End: 04-11-2024 take 1 capsule by mouth twice daily doxycycline monohydrate (MONODOX) 100 mg capsule Indications: Exposure to chlamydia , Dysuria Take 1 capsule by mouth two times a day for 7 days. 14 capsule 0 04/04/2024 04/11/2024 Active fluconazole 200 mg oral tablet (20 sources) Azole Antifungal Start: 07-12-2017 fluconazole (DIFLUCAN) 200 mg tablet Take 400mg loading dose x1 day, then 200mg daily for 14 days total. 15 tablet 07/12/2017 Active Comment on above: Take 400mg loading d ose x1 day, then 200mg daily for 14 days total. 120 actuat fluticasone propionate 0.22 mg/actuat metered dose inhaler (20 sources) Corticosteroid Start: 02-03-2020 take 2 puff(s) by inhalation twice daily fluticasone (FLOVENT) 220 mcg/actuation inhaler Indications: Eosinophilic esophagitis 2 Puffs twice daily. no spacer, swallow do not inhale, rinse and swallow with water, do not eat for 30 min after 1 Inhaler 2 02/03/2020 Active Comment on above: 2 Puffs twice daily. no spacer, swallow do not inhale, rinse and swallow with water, do not eat for 30 min after hydrOXYzine pamoate 25 mg oral capsule (10 sources) Antihistamine Start: 03-17-2024 take 1 capsule by mouth once daily hydrOXYzine pamoate (VISTARIL) 25 mg capsule Take 25 mg by mouth once daily. 03/17/2024 Active Start: 06-23-2022 End: 06-23-2022 hydrOXYzine (VISTARIL) injec tion 100 mg Start: 06-23-2022 End: 03-14-2023 take 2 capsules by mouth four times daily as needed hydrOXYzine pamoate 25 MG capsule Take 2 capsules by mouth 4 times daily as needed. 40 capsule 0 06/23/2022 03/14/2023 Discontinued ibuprofen 800 mg oral tablet (8 sources) Nonsteroidal Anti-inflammatory Drug Start: 02-28-2024 End: 03-29-2024 ibuprofen 800 mg oral tablet Dose : 800 mg = 1 tab(s), Oral, TID, PRN as needed for pain, # 30 tab(s), 0 Refill(s) Start Date: 03/17/24 Status: Ordered Quantity: 30.0 Unit: tab(s) Repeat number: 1 Comment on above: Take 1 tablet by shadia th every 8 hours as needed for pain. meloxicam 15 mg oral tablet (20 sources) Nonsteroidal Anti-inflammatory Drug Start: 08-22-2018 End: 09-23-2020 take 1 tablet by mouth once daily meloxicam (MOBIC) 15 mg tablet Indications: Lumbar radiculopathy , Spondylolisthesis of lumbosacral region Take 1 tablet by mouth once daily. Take this directly following a meal 60 tablet 1 12/12/2019 Active Comment on above: Take 1 tablet by shadia th once daily. Take this directly following a meal 1.5 ml paliperidone palmitate 156 mg/ml prefilled syringe (20 sources) Atypical Antipsychotic Start: 04-16-2023 INVEGA SUSTENNA 234 mg/1.5 mL syrg injection every 6 months 04/16/2023 Active Start: 04-16-2023 INVEGA SUSTENN A 234 mg/1.5 mL syrg injection once every month. 0 04/16/2023 Active Start: 02-07-2022 Invega Sustenn a 234 MG/1.5ML Suspension Prefilled Syringe injection paliperidone pal mitate (INVEGA TRINZA INTRAMUSC.) Inject intramuscularly. Active paliperidone pal mitate (INVEGA TRINZA INTRAMUSC.) Inject intramuscularly. 0 Active End: 03-14-2023 Paliperidone Palmitate (INVE GA TRINZA IM) Inject intramuscularly. 0 03/14/2023 Discontinued Paliperidone Pal mitate (INVEGA TRINZA IM) Inject intramuscularly. 0 Active Comment on above: Inject intramuscular ly. once every month. sulfamethoxazole 800 mg / trimethoprim 160 mg oral tablet (1 source) Dihydrofolate Reductase Inhibitor Antibacterial, Sulfonamide Antimicrobial Start: End: 024 take 1 tablet by mouth twice daily sulfamethoxazole-t rimethoprim (BACTRIM DS) 800-160 mg per tablet Take 1 tablet by mouth two times a day for 10 days. 20 tablet 0 02/28/2024 03/09/2024 Active Comment on above: [facility] for 10 days. tamsulosin hydrochloride 0.4 mg oral capsule (20 sources) alpha-Adrenergic Scotty Start: 019 take 1 capsule by mouth once daily at bedtime tamsulosin ER (FLOMAX) 0.4 mg cap Take 1 capsule by mouth daily at bedtime. 30 capsule 1 10/17/2019 Active Comment on above: Take 1 capsule by [facility] daily at bedtime. varenicline 1 mg oral tablet (20 sources) Partial Cholinergic Nicotinic Agonist Start: 020 take 1 tablet by mouth twice daily varenicline (CHANTIX CONTINUING MONTH BOX) 1 mg tablet Take 1 tablet by mouth twice daily. 60 tablet 1 02/03/2020 Active Start: 02-03-2020 End: 02-28-2024 take 1 tablet by mouth once daily, then take 1 tablet by mouth twice daily, then take 1 tablet by mouth twice daily varenicline (CHANTIX STARTING MONTH BOX) 0.5 mg (11)- 1 mg (42) tablet Take 1 tablet (0.5 mg) by mouth once daily for 3 days, then 1 tablet (0.5 mg) twice daily for 4 days, then one tablet (1 mg) twice daily. 53 tablet 0 02/03/2020 02/28/2024 Discontinued (Course of therapy completed) Comment on above: Take 1 tablet (0.5 m g) by mouth once daily for 3 days, then 1 tablet (0.5 mg) twice daily for 4 days, then one tablet (1 mg) twice daily. Take 1 tablet by shadia th twice daily. Completed/Discontinued Medications Medication Drug Class(es) Dates Sig (Normalized) Sig (Original) acetaminophen 325 mg / HYDROcodone bitartrate 5 mg oral tablet (7 sources) Opioid Agonist Start: 08-25-2018 End: 09-09-2020 take 1 tablet by mouth every six hours as needed for pain hydroCODone-acetami nophen 5-325 MG Tab tablet Indications: Varicocele Take 1 tablet by mouth every 6 hours as needed for Moderate Pain for up to 10 doses. 10 tablet 0 08/25/2018 09/09/2020 Discontinued Start: 08-17-2014 take 1 tablet by shadia th every four hours as needed for pain [place] 325- 5 mg oral tablet Dose = 1 tab(s), Oral, q4h, PRN for pain, 0 Refill(s) Start Date: 08/17/14 Status: Ordered Repeat number: 1 bacitracin 0.5 unt/mg topica l ointment (1 source) Start: 07-14-2020 End: 07-14-2020 bacitracin ointment 1 Application Start: 07-14-2020 End: 07-14-2020 bacitracin ointment 1 Applic ation CLONIDINE-CHLORTHALIDONE PO (2 sources) Start: 08-10-2020 End: 09-23-2020 take 40 mg by mouth twice daily CLONIDINE-CHLORTHALIDONE PO Take 40 mg by mouth 2 times daily. 0 08/10/2020 09/23/2020 Discontinued Start: 08-10-2020 take 40 mg by mouth twice daily CLONIDINE-CHLORTHALIDONE PO Take 40 mg b y mouth 2 times daily. 0 08/10/2020 Active docosahexaenoic acid 120 mg / eicosapentaenoic acid 180 mg oral capsule (11 sources) Start: 09-26-2021 End: 03-14-2023 take 2 capsules by mouth twice daily [place]-3 Fatty Acids (Fish Oil) 1000 MG capsule Indications: Mixed hyperlipidemia Take 2 capsules by mouth 2 times daily. 360 capsule 1 09/26/2021 03/14/2023 Discontinued Gadobenate (1 source) Start: 04-06-2022 End: 04-06-2022 Gadobenate Dimeglumine (MULTIHANCE) 15 mL ketorolac tromethamine 10 mg oral tablet (5 sources) Nonsteroidal Anti-inflammatory Drug, Cyclooxygenase Inhibitor Start: 04-10-2023 End: 04-10-2023 Ketorolac (TORADOL) injection 15 mg Start: 08-18-2018 End: 09-09-2020 take 1 tablet by mouth every six hours as needed ketorolac 10 MG Tab Take 1 tablet by mouth every 6 hours as needed. Do not take for more than 5 days. 20 tablet 0 08/18/2018 09/09/2020 Discontinued 30 actuat mometasone furoate 0.11 mg/actuat dry powder inhaler (20 sources) Corticosteroid Start: 09-09-2020 End: 03-14-2023 take 1 puff(s) by inhalation once daily in the evening Mometasone Furoate (Asmanex, 30 Metered Doses,) 110 MCG/INH Aerosol Powder, breath activated Indications: Mild persistent asthma without complication Inhale 1 puff every evening at 6 PM. 1 Each 6 09/23/2021 03/14/2023 Discontinued 1 ml morphine sulfate 4 mg/ml cartridge (1 source) Opioid Agonist Start: 04-10-2023 End: 04-10-2023 Morphine sulfate (PF) injection 4 mg naproxen 500 mg oral tablet (3 sources) Nonsteroidal Anti-inflammatory Drug Start: 07-16-2019 End: 09-09-2020 take 1 tablet by mouth twice daily as needed naproxen 500 MG Tab tablet Take 1 tablet by mouth 2 times daily as needed. 30 tablet 0 07/16/2019 09/09/2020 Discontinued Drug Treatment Unknown - unknown (6 sources) No information available. 2 ml ondansetron 2 mg/ml injection (1 source) Serotonin-3 Receptor Antagonist Start: 04-10-2023 End: 04-10-2023 Ondansetron 4mg/2ml (ZOFRAN) injection 4 mg sildenafil 100 mg oral tablet (15 sources) Phosphodiesterase 5 Inhibitor Start: 02-16-2021 End: 03-07-2022 take 1 tablet by mouth once daily as needed sildenafil citrate 100 MG tablet Indications: Erectile dysfunction, unspecified erectile dysfunction type Take 1 tablet by mouth daily as needed for Erectile Dysfunction. 30 tablet 3 01/10/2022 03/07/2022 Discontinued (Ineffective) Start: 09-23-2020 End: 02-16-2021 take 1 tablet by mouth once daily as needed sildenafil citrate 50 MG tablet Indications: Erectile dysfunction, unspecified erectile dysfunction type Take 1 tablet by mouth daily as needed for Erectile Dysfunction. 30 tablet 0 10/21/2020 02/16/2021 Discontinued (Reorder) 250 ml sodium chloride 9 mg/ml injection (1 source) Start: 04-10-2023 End: 04-10-2023 Sodium chloride 0.9% IV solution 1,000 mL strawberry allergenic extract (15 sources) Non-Standardized Food Allergenic Extract End: 08-28-2024 STRAWBERRY 08/28/2024 Discontinued (Other) STRAWBERRY Activ e STRAWBERRY tadalafil 5 mg oral tablet (7 sources) Phosphodiesterase 5 Inhibitor Start: 03-07-2022 End: 03-14-2023 take 1 tablet by mouth once daily as needed tadalafil 5 MG tablet Take 1 tablet by mouth daily as needed. 30 tablet 11 03/07/2022 03/14/2023 Discontinued Problems Active Problems Problem Classification Problem Date Documented Da te Episodic/Chronic Allergic reactions (5 sources) Latex allergy status; Translations: [Allergy status to other drugs, medicaments and biological substances status] Onset: 09-18-2017 Episodic Anxiety disorders (20 sources) Mixed anxiety and depressive disorder; Translations: [Anxiety disorder, unspecified] Onset: 01-14-2010 Chronic Asthma (20 sources) Uncomplicated mild persistent asthma; Translations: [Mild persistent asthma, uncomplicated] Onset: 09-27-2005 09-09-2020 Chronic Disorders usually diagnosed in infancy, childhood, or adolescence (20 sources) Attention deficit hyperactivity disorder, predominantly inattentive type; Translations: [Other specified behavioral and emotional disorders with onset usually occurring in childhood and adolescence] Onset: 09-27-2005 09-27-2005 Chronic Esophageal disorders (20 sources) Eosinophilic esophagitis; Translations: [Eosinophilic esophagitis] Onset: 08-23-2017 08-23-2017 Chronic External Injury - Natural / Environment (2 sources) Exposure to other specified factors, initial encounter; Translations: [Exposure to other specified factors, initial encounter] Onset: 09-18-2017 Gastritis and duodenitis (2 sources) Unspecified chronic gastritis without bleeding; Translations: [Unspecified chronic gastritis without bleeding] Onset: 09-18-2017 Chronic Immunizations and screening for infectious disease (2 sources) Contact with and (suspected) exposure to infections with a predominantly sexual mode of transmission; Translations: [Contact with or exposure to venereal diseases] 04-04-2024 Episodic Miscellaneous mental health disorders (1 source) Premature ejaculation; Translations: [Premature ejaculation] 10-28-2024 Chronic Mood disorders (20 sources) Unspecified mood [affective] disorder; Translations: [Bipolar disorder] Onset: 01-14-2010 01-14-2010 Chronic Mood disorders (2 sources) Mood disorders; Translations: [Depression, unspecified] Onset: 06-23-2022 Nonspecific chest pain (1 source) Chest pain; Translations: [Other chest pain] Onset: 11-25-2024 Episodic Open wounds of extremities (1 source) Laceration of finger; Translations: [Laceration of left middle finger without foreign body without damage to nail, initial encounter] Episodic Other circulatory disease (1 source) Elevated blood-pressure reading, without diagnosis of hypertension; Translations: [Elevated blood-pressure reading, without diagnosis of hypertension] Onset: 02-21-2025 Episodic Other connective tissue disease (4 sources) Pelvic floor dysfunction; Translations: [Other specified disorders of muscle] 07-15-2024 Episodic Other diseases of bladder and urethra (20 sources) Bladder neck obstruction; Translations: [Bladder-neck obstruction] Onset: 02-10-2009 02-10-2009 Chronic Other diseases of bladder and urethra (20 sources) Detrusor and sphincter dyssynergia; Translations: [Muscular disorders of urethra] Onset: 04-01-2010 04-01-2010 Chronic Other diseases of bladder and urethra (1 source) Bladder-neck obstruction; Translations: [Bladder neck obstruction] Onset: 02-10-2009 Chronic Other diseases of bladder and urethra (1 source) Muscular disorders of urethra; 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] Onset: 04-01-2010 Chronic Other gastrointestinal disorders (1 source) Diarrhea; Translations: [Diarrhea, unspecified] Episodic Other gastrointestinal disorders (1 source) Other constipation; Translations: [Chronic constipation] Onset: 09-25-2024 Episodic Other injuries and conditions due to external causes (1 source) Foreign body in esophagus; Translations: [Unspecified foreign body in esophagus causing other injury, initial encounter] Onset: 02-22-2025 Episodic Other injuries and conditions due to external causes (1 source) Unspecified foreign body in esophagus causing other injury, initial encounter; Translations: [Unspecified foreign body in esophagus causing other injury, initial encounter] Onset: 02-21-2025 Episodic Other injuries and conditions due to external causes (1 source) Other foreign object in esophagus causing other injury, initial encounter; Translations: [Other foreign object in esophagus causing other injury, initial encounter] Onset: 02-21-2025 Episodic Other injuries and conditions due to external causes (1 source) Food in esophagus causing other injury, initial encounter; Translations: [Food in esophagus causing other injury, initial encounter] Onset: 03-20-2025 Episodic Other injuries and conditions due to external causes (2 sources) Food in esophagus causing other injury, initial encounter; Translations: [Food in esophagus causing other injury, initial encounter] Onset: 09-18-2017 Other lower respiratory disease (2 sources) Rib pain; Translations: [Rib Pain] Onset: 10-12-2022 Episodic Other lower respiratory disease (2 sources) Cough; Translations: [Acute cough] 08-28-2024 Episodic Other male genital disorders (20 sources) Male erectile dysfunction, unspecified; Translations: [Impotence of organic origin] Onset: 09-23-2020 09-23-2020 Chronic Other male genital disorders (4 sources) Vasculopathic erectile dysfunction; Translations: [Male erectile dysfunction, unspecified] Chronic Other male genital disorders (3 sources) Secondary erectile dysfunction; Translations: [Male erectile dysfunction, unspecified] 07-29-2024 Chronic Other male genital disorders (3 sources) Defective ejaculation; Translations: [Other ejaculatory dysfunction] Onset: 03-14-2023 Episodic Other male genital disorders (2 sources) Other ejaculatory dysfunction; Translations: [Other ejaculatory dysfunction] Onset: 03-14-2023 Episodic Other male genital disorders (2 sources) Hemospermia; Translations: [Hematospermia] Episodic Other male genital disorders (2 sources) Bilateral testicular pain; Translations: [Right testicular pain] Episodic Other male genital disorders (1 source) Pain of right testicle; Translations: [Right testicular pain] 02-01-2024 Episodic Other upper respiratory disease (20 sources) Allergic rhinitis; Translations: [Allergic rhinitis, unspecified] Onset: 09-27-2005 04-27-2023 Chronic Residual codes; unclassified (8 sources) Tobacco user; Translations: [Tobacco abuse disorder] Onset: 09-09-2020 09-09-2020 Chronic Residual codes; unclassified (1 source) Procedure and treatment not carried out because of patient's decision for other reasons; Translations: [Procedure and treatment not carried out because of patient's decision for other reasons] Onset: 02-21-2025 Episodic Residual codes; unclassified (1 source) Procedure and treatment not carried out due to patient leaving prior to being seen by health care provider; Translations: [Procedure and treatment not carried out due to patient leaving prior to being seen by health care provider] Onset: 01-15-2025 Episodic Schizophrenia and other psychotic disorders (20 sources) Schizoaffective disorder; Translations: [Schizoaffective disorder, unspecified] Onset: 01-14-2010 09-23-2020 Chronic Comment on above: paranoid Substance-related disorders (20 sources) Nicotine dependence, unspecified, uncomplicated; Translations: [Other stimulant abuse, uncomplicated] Onset: 02-19-2018 09-09-2020 Chronic Substance-related disorders (14 sources) Opioid abuse, in remission; Translations: [Other stimulant abuse, in remission] Onset: 09-09-2020 09-09-2020 Suicide and intentional self-inflicted injury (2 sources) Suicidal ideations; Translations: [Suicidal ideations] Onset: 02-19-2018 Episodic Unclassified (6 sources) No current problems or disability 10-05-2017 Unclassified (6 sources) Patient encounter status; Translations: [Encounter for medical examination to establish care] Onset: 09-09-2020 09-09-2020 Unclassified (16 sources) NO SHOW; Translations: [NO SHOW] Onset: 08-31-2014 Resolved: 07-12-2017 07-12-2017 Unclassified (1 source) Acute cough; Translations: [Acute cough] Onset: 08-28-2024 Past or Other Problems Problem Classification Problem Date Documented Da te Episodic/Chronic Abdominal pain (9 sources) Unspecified abdominal pain; Translations: [Right flank pain] Onset: 04-10-2023 Episodic Calculus of urinary tract (5 sources) Kidney stone; Translations: [Calculus of kidney] Onset: 03-29-2022 Episodic Contraceptive and procreative management (20 sources) Patient encounter status; Translations: [Encounter for sterilization] Onset: 10-19-2023 08-10-2023 Episodic Esophageal disorders (2 sources) Esophagitis, unspecified; Translations: [Esophagitis, unspecified] Onset: 09-18-2017 Episodic Genitourinary symptoms and ill-defined conditions (20 sources) Increased frequency of urination; Translations: [Frequency of micturition] Onset: 04-01-2010 Episodic Hepatitis (20 sources) Viral hepatitis C; Translations: [Unspecified viral hepatitis C without hepatic coma] Onset: 04-01-2014 04-01-2014 Episodic Inflammatory conditions of male genital organs (15 sources) Balanitis; Translations: [Balanitis] Onset: 08-09-2009 Resolved: 02-23-2014 02-23-2014 Chronic Influenza (2 sources) Influenza due to other identified influenza virus with other respiratory manifestations; Translations: [Influenza due to other identified influenza virus with other respiratory manifestations] Onset: 10-20-2022 Episodic Other circulatory disease (2 sources) Other specified symptoms and signs involving the circulatory and respiratory systems; Translations: [Oth symptoms and signs involving the circ and resp systems] Onset: 09-18-2017 Episodic Other diseases of veins and lymphatics (20 sources) Varicocele; Translations: [Scrotal varices] Onset: 02-10-2009 02-10-2009 Episodic Other gastrointestinal disorders (2 sources) Dysphagia, unspecified; Translations: [Dysphagia, unspecified] Onset: 09-18-2017 Episodic Other gastrointestinal disorders (20 sources) Dysphagia; Translations: [Dysphagia, unspecified] Onset: 02-23-2014 02-23-2014 Episodic Other gastrointestinal disorders (5 sources) Chronic constipation; Translations: [Other constipation] Onset: 09-25-2024 09-25-2024 Episodic Other infections; including parasitic (17 sources) History of hepatitis C; Translations: [Personal history of other infectious and parasitic diseases] Onset: 10-19-2023 10-19-2023 Episodic Other male genital disorders (20 sources) Pain in testicle; Translations: [Testicular pain, unspecified] Onset: 04-01-2010 04-01-2010 Episodic Other male genital disorders (15 sources) Redundant prepuce and phimosis; Translations: [Other disorders of prepuce] Onset: 08-09-2009 Resolved: 02-23-2014 02-23-2014 Episodic Other male genital disorders (3 sources) Testicular pain, unspecified; Translations: [Pain in testicle, unspecified laterality] Onset: 04-01-2010 Episodic Other nervous system disorders (1 source) Paresthesia of skin; Translations: [Paresthesia of skin] Onset: 12-09-2024 Episodic Other screening for suspected conditions (not mental disorders or infectious disease) (4 sources) Increased prolactin level; Translations: [Other specified abnormal findings of blood chemistry] Onset: 04-06-2022 Episodic Other upper respiratory infections (4 sources) Sore throat symptom; Translations: [Acute pharyngitis, unspecified] Onset: 08-28-2024 03-25-2024 Episodic Residual codes; unclassified (15 sources) Tobacco user; Translations: [Tobacco use] Onset: 09-09-2020 Episodic Residual codes; unclassified (1 source) Illness, unspecified; Translations: [Illness, unspecified] Onset: 12-17-2024 Episodic Substance-related disorders (17 sources) Marijuana user; Translations: [Cannabis use, unspecified, uncomplicated] Onset: 10-19-2023 10-19-2023 Episodic Unclassified (1 source) Onset: 06-23-2022 06-23-2022 Results Test Name Value Interpretation Reference Range Facil ity Basic Metabolic Profile (BMP )on 03-12-2025 BUN/CRE 5.2 RATIO Low 10-20 [facility] Comment on above: Performed By: #### L 500.2500, L100.0100 #### [facility] [address] [place], [address] Calcium [Mass/Vol] 9.2 mg/dL Normal 7.6-11.[address] [facility] Comment on above: Performed By: #### L 500.2500, L100.0100 #### [facility] [address] [place], [address] Chloride [Moles/Vol] 101 mmol/L Normal 98-108 [facility] Comment on above: Performed By: #### L 500.2500, L100.0100 #### [facility] [address] [place], [address] CO2 [Moles/Vol] 23.5 mmol/L Normal 21.0-32.0 [facility] Comment on above: Performed By: #### L 500.2500, L100.0100 #### [facility] [address] [place], [address] Creatinine [Mass/Vol] 1.00 mg/dL Normal 0.70-1.20 [facility] Comment on above: Performed By: #### L 500.2500, L100.0100 #### [facility] [address] [place], [address] ECRCL 100.02 ml/min Normal 50-250 [facility] Comment on above: Performed By: #### L 500.2500, L100.0100 #### [facility] [address] [place], [address] GAP 13 Normal 5-15 [facility] Comment on above: Performed By: #### L 500.2500, L100.0100 #### [facility] [address] [place], [address] GFR/1.73 sq M.predicted among non-blacks MDRD (S/P/Bld) [Vol rate/Area] 97 mL/min/{1.73_m2} Normal >60 [facility] Comment on above: Result Comment: mL/m in/1.73m2 CKD-EPI Creatinine Equation (2020) Performed By: #### L 500.2500, L100.0100 #### [facility] [address] [place], [address] Glucose [Mass/Vol] 123 mg/dL High 70-[address] [facility] Comment on above: Performed By: #### L 500.2500, L100.0100 #### [facility] [address] [place], [address] Potassium [Moles/Vol] 3.0 mmol/L Low 3.3-5.1 [facility] Comment on above: Performed By: #### L 500.2500, L100.0100 #### [facility] [address] [place], [address] Sodium [Moles/Vol] 137 mmol/L Normal 133-[address] [facility] Comment on above: Performed By: #### L 500.2500, L100.0100 #### [facility] [address] [place], [address] Urea nitrogen [Mass/Vol] 5 mg/dL Normal 4-19 [facility] Comment on above: Performed By: #### L 500.2500, L100.0100 #### [facility] [address] [place], [address] CBC W/Diff, Automatedon 05-0 1-5 Absolute Lymph 2.55 X10 3/uL Normal 0.83-4.51 [facility] Comment on above: Performed By: #### L 500.2500, L100.0100 #### [facility] [address] [place], [address] Absolute Neut 6.1 X10 3/uL Normal 2.0-7.7 [facility] Comment on above: Performed By: #### L 500.2500, L100.0100 #### [facility] [address] [place], [address] Basophils/100 WBC (Bld) 1.0 % Normal 0-1 [facility] Comment on above: Performed By: #### L 500.2500, L100.0100 #### [facility] [address] [place], [address] Eosinophils/100 WBC (Bld) 8.5 % High 0-5 [facility] Comment on above: Performed By: #### L 500.2500, L100.0100 #### [facility] [address] [place], [address] Erythrocyte distribution width (RBC) [Ratio] 12.7 % Normal 11.6-14.6 [facility] Comment on above: Performed By: #### L 500.2500, L100.0100 #### [facility] [address] [place], [address] Hematocrit (Bld) [Volume fraction] 42.5 % Normal 40-54 [facility] Comment on above: Performed By: #### L 500.2500, L100.0100 #### [facility] [address] [place], [address] Hemoglobin (Bld) [Mass/Vol] 15.4 g/dL Normal 13.0-16.5 [facility] Comment on above: Performed By: #### L 500.2500, L100.0100 #### [facility] [address] [place], [address] IG% 0.400 Normal 0.0-0.9 [facility] Comment on above: Result Comment: IG% - Immature Granulocytes (promyelocytes, myelocytes and metamyelocytes) > 1% indicates that a LEFT SHIFT is Present. Performed By: #### L 500.2500, L100.0100 #### [facility] [address] [place], [address] Lymphocytes/100 WBC (Bld) 24.8 % Normal 19-41 [facility] Comment on above: Performed By: #### L 500.2500, L100.0100 #### [facility] [address] [place], [address] MCH (RBC) [Entitic mass] 31.4 pg Normal 27.0-32.0 [facility] Comment on above: Performed By: #### L 500.2500, L100.0100 #### [facility] [address] [place], [address] MCHC (RBC) [Mass/Vol] 36.2 g/dL High 32-36 [facility] Comment on above: Performed By: #### L 500.2500, L100.0100 #### [facility] [address] [place], [address] MCV (RBC) [Entitic vol] 86.7 fL Normal 80-94 [facility] Comment on above: Performed By: #### L 500.2500, L100.0100 #### [facility] [address] [place], [address] Monocytes/100 WBC (Bld) 6.5 % Normal 0-10 [facility] Comment on above: Performed By: #### L 500.2500, L100.0100 #### [facility] [address] [place], [address] Neutrophils/100 WBC (Bld) 58.8 % Normal 47-70 [facility] Comment on above: Performed By: #### L 500.2500, L100.0100 #### [facility] [address] [place], [address] Nucleated RBC (Bld) [#/Vol] 0 10*3/uL Normal 0-5 [facility] Comment on above: Performed By: #### L 500.2500, L100.0100 #### [facility] [address] [place], [address] Platelet mean volume (Bld) [Entitic vol] 9.0 fL Normal 6.2-12.0 [facility] Comment on above: Performed By: #### L 500.2500, L100.0100 #### [facility] [address] [place], [address] Platelets (Bld) [#/Vol] 311 10*3/uL Normal 150-450 [facility] Comment on above: Performed By: #### L 500.2500, L100.0100 #### [facility] [address] [place], [address] RBC (Bld) [#/Vol] 4.90 10*6/uL Normal 4.6-6.2 [facility] Comment on above: Performed By: #### L 500.2500, L100.0100 #### [facility] [address] [place], [address] RDW SD 39.8 fl Normal 35.1-43.9 [facility] Comment on above: Performed By: #### L 500.2500, L100.0100 #### [facility] [address] [place], [address] WBC (Bld) [#/Vol] 10.3 10*3/uL Normal 4.4-11.0 [facility] Comment on above: Performed By: #### L 500.2500, L100.0100 #### [facility] [address] [place], [address] Emergency Department Summary on 03-12-2025 Emergency Department Summary [facility] Medical Records Department [address] [place] [address] Emergency Department Summary 03/12/25 MR#: [id number] Acct: [id number] Name: JOASFAT ALVARENGA Rep #: [id number] : 1985 39 From: Gildardo Rubio DO PCP: Care Physician,No Primary Status:[facility] ER Location: ED HPI History of Present Illness Chief Complaint: Foreign Body Informant: patient and spouse/S.O. Narrative Narrative: Patient is a 39-year-old female with past medical history of asthma and tobacco abuse. He also reports a past history of esophageal stricture and previous esophageal obstructions. He states his last obstruction was roughly 1 month ago and he required an endoscopy to remove the foreign body. He states roughly 20 to 30 minutes prior to arrival he was eating fried chicken when it fell like it became stuck. He denies any trouble breathing but states that he cannot swallow food or fluid or his own saliva without having to spit it out or have bouts of vomiting. With concern he has repeat esophageal obstruction he presents for evaluation PFSH PFSH Medical History Foreign body in throat History of intravenous drug abuse Erectile dysfunction Hepatitis C Marijuana smoker Home Medications ???Medication ???Instructions ???Recorded ???Last Taken ???Type albuterol sulfate 90 mcg/actuation 2 puff inhalation Q4H PRN PRN Unknown History aerosol inhaler shortness of breath or wheezing paliperidone palmitate 234 mg/1.5 234 mg IM Q30D 03/12/25 Unknown H istory mL intramuscular syringe (Invega Sustenna) Allergy/AdvReac Type Severity Reaction Status Date / Time latex Allergy Mild Rash Verified 03/12/25 03:36 cyclobenzaprine HCl (From Allergy Angioedema Verified 03/12/25 03:36 Flexeril) Social History Smoking Status: Current every day smoker tobacco type: cigarettes ROS ROS ED Constitutional Constitutional ED: Denies chills or fever(s) Eyes Eyes: Denies change in vision ENT ENT ED: Denies sore throat Cardiovascular Cardiovascular: Denies chest pain Respiratory/Chest Respiratory/Chest: Denies cough or dyspnea Gastrointestinal Gastrointestinal: Reports nausea and vomiting; Denies abdominal pain or diarrhea Musculoskeletal Musculoskeletal: Denies neck pain Integumentary Denies rash Neurologic Neurologic: Denies headache(s) Hematologic/Lymphatic Hematologic/Lymphatic: Denies easy bleeding or easy bruising Allergic/Immunologic Allergic/Immunologic ED: Denies mouth swelling or tongue swelling EXAM Physical Exam Const Vital Signs: 03/12/25 03:36 03/12/25 03:36 Temperature 98 F Temperature Source Temporal Pulse Rate 93 Respiratory Rate 17 Respiratory Effort Normal Non-Labored Blood Pressure 149/94 H Blood Pressure Mean 112 Pulse Ox 98 Oxygen Delivery Method Room Air Positive well nourished and well developed General Appearance ED: well developed; Negative for pallor HEENT Reports moist mucous membranes HEENT Narrative: No tongue or lip swelling no oral lesions no airway edema or compromise No secondary findings in the posterior pharynx to suggest infection Eyes PERRL and EOMs intact bilaterally General Eye ED: Negative for scleral icterus Neck supple Neck Narrative: No subcutaneous emphysema noted Resp normal respiratory effort Resp Narrative: Breath sounds are diminished throughout with faint expiratory wheeze consistent with history of asthma and smoking No signs of respiratory distress Cardio regular rate and regular rhythm GI normal to inspection, nondistended, normoactive bowel sounds, non-tender, non-distended and no masses Auscultation: normoactive bowel sounds Palpation: soft Extremity normal to inspection Neuro oriented x3, CN's II-XII intact bilaterally and no sensory deficits noted Sensorium / Orientation: alert Motor Exam: strength 5/5 throughout Psych mental status grossly normal Skin no rashes or lesions noted General Skin Exam: Negative for jaundice or pallor MDM MDM MDM Narrative Medical decision making narrative: Patient arrived to the ER hypertensive but otherwise with stable vitals. He reported that this happened roughly 1 month ago and he required EGD. He states that he is scheduled to see a GI physician in [place] to discuss need for esophageal dilation. At this time he has no signs of respiratory distress and my concern that there is a tracheal foreign body is low. There is no crepitance palpated so I have low concern for pneumomediastinum. The patient was given IV hydration as well as morphine Ativan and glucagon. After receiving his medications he did have spontaneous resolution of his foreign body and wa (more content not included)... Normal [facility] .Auto Diffon 02-22-2025 Basophil, Absolute 0.1 10 3/mcL Normal 0.0-0.3 [facility] Comment on above: Performed By: #### A DIFF, GFR, LIPID, CBC, HFP, BMP, MG, ANEU #### [address] [address] Basophils/100 WBC (Bld) 1.0 % Normal 0.0-2.5 [facility] Comment on above: Performed By: #### A DIFF, GFR, LIPID, CBC, HFP, BMP, MG, ANEU #### [address] [address] Eosinophil, Absolute 0.8 10 3/mcL High 0.0-0.7 [facility] Comment on above: Performed By: #### A DIFF, GFR, LIPID, CBC, HFP, BMP, MG, ANEU #### [address] [address] Eosinophils/100 WBC (Bld) 11.1 % High 0.0-6.0 [facility] Comment on above: Performed By: #### A DIFF, GFR, LIPID, CBC, HFP, BMP, MG, ANEU #### [address] [address] Lymphocyte, Absolute 2.5 10 3/mcL Normal 0.9-4.3 [facility] Comment on above: Performed By: #### A DIFF, GFR, LIPID, CBC, HFP, BMP, MG, ANEU #### [address] [address] Lymphocytes/100 WBC (Bld) 34.8 % Normal 20.0-40.0 [facility] Comment on above: Performed By: #### A DIFF, GFR, LIPID, CBC, HFP, BMP, MG, ANEU #### [address] [address] Monocyte, Absolute 0.5 10 3/mcL Normal 0.1-1.4 [facility] Comment on above: Performed By: #### A DIFF, GFR, LIPID, CBC, HFP, BMP, MG, ANEU #### [address] [address] Monocytes/100 WBC (Bld) 7.3 % Normal 2.0-13.0 [facility] Comment on above: Performed By: #### A DIFF, GFR, LIPID, CBC, HFP, BMP, MG, ANEU #### [address] [address] Neutrophils/100 WBC (Bld) 45.8 % Low 50.0-75.0 [facility] Comment on above: Performed By: #### A DIFF, GFR, LIPID, CBC, HFP, BMP, MG, ANEU #### [address] [address] .GFRon 02-22-2025 Estimated Glomerular Filtration Rate 113 ml/min/1.73sqm Normal [facility] Comment on above: Result Comment: Stages of Chronic Kidney Disease (CKD) Stage Description eGFR(ml/min/1.73 sq.m.) CKD 1 Normal kidney function or >=90 normal kindney function with possible kidney damage (ex. Proteinuria) CKD 2 Kidney damage with mild loss 60-89 of kidney function CKD 3a Mild to moderate loss of kidney 45-59 function CKD 3b Moderate to severe loss of 30-44 of kindey function CKD 4 Severe loss of kidney function 15-29 CKD 5 Kidney failure <15 Note: (go live 2024) the eGFR calculation was updated to the 2020 CKD-EPI creatinine equation without a race factor to calculate the eGFR results. Performed By: #### A DIFF, GFR, LIPID, CBC, HFP, BMP, MG, ANEU #### [address] [address] .NEUABSon 02-22-2025 Neutrophil, Absolute 3.3 10 3/mcL Normal 2.3-8.1 [facility] Comment on above: Performed By: #### A DIFF, GFR, LIPID, CBC, HFP, BMP, MG, ANEU #### [address] [address] [facility] BUN/Creatinine Ratio Unable to Calculate Normal 10.0-[address] [facility] Comment on above: Result Comment: Unab le to calculate this test result accurately. Results used to calculate this test are outside the reportable range. Performed By: #### A DIFF, GFR, LIPID, CBC, HFP, BMP, MG, ANEU #### [address] [address] Urea nitrogen [Mass/Vol] mg/dL Low 8.0-22.0 [facility] Comment on above: Performed By: #### A DIFF, GFR, LIPID, CBC, HFP, BMP, MG, ANEU #### [address] [address] Calcium [Mass/Vol] 9.0 mg/dL Normal 8.7-10.4 [facility] Comment on above: Performed By: #### A DIFF, GFR, LIPID, CBC, HFP, BMP, MG, ANEU #### [address] [address] Chloride [Moles/Vol] 108 mmol/L Normal 98-110 [facility] Comment on above: Performed By: #### A DIFF, GFR, LIPID, CBC, HFP, BMP, MG, ANEU #### [address] [address] CO2 [Moles/Vol] 30 mmol/L Normal 22-32 [facility] Comment on above: Performed By: #### A DIFF, GFR, LIPID, CBC, HFP, BMP, MG, ANEU #### [place] [address] Creatinine [Mass/Vol] 0.82 mg/dL Normal 0.60-1.40 [facility] Comment on above: Result Comment: Test ing performed on etrigg analyzer using enzymatic creatinine methodology. Performed By: #### A DIFF, GFR, LIPID, CBC, HFP, BMP, MG, ANEU #### [place] [address] Electrolyte Balance 7.0 mEq/L Normal 4.0-15.0 [facility] Comment on above: Performed By: #### A DIFF, GFR, LIPID, CBC, HFP, BMP, MG, ANEU #### [place] [address] Glucose [Mass/Vol] 88 mg/dL Normal 70-110 [facility] Comment on above: Performed By: #### A DIFF, GFR, LIPID, CBC, HFP, BMP, MG, ANEU #### [place] [address] Potassium [Moles/Vol] 3.5 mmol/L Normal 3.5-5.0 [facility] Comment on above: Performed By: #### A DIFF, GFR, LIPID, CBC, HFP, BMP, MG, ANEU #### [place] [id number] Sodium [Moles/Vol] 145 mmol/L Normal 136-145 [facility] Comment on above: Performed By: #### A DIFF, GFR, LIPID, CBC, HFP, BMP, MG, ANEU #### [place] [address] CBCon 02-22-2025 Erythrocyte distribution width (RBC) [Ratio] 13.1 % Normal 11.5-15.5 [facility] Comment on above: Performed By: #### A DIFF, GFR, LIPID, CBC, HFP, BMP, MG, ANEU #### [place] [address] Hematocrit (Bld) [Volume fraction] 43.3 % Normal 40.0-52.0 [facility] Comment on above: Performed By: #### A DIFF, GFR, LIPID, CBC, HFP, BMP, MG, ANEU #### [place] [address] Hgb 15.0 G/dL Normal 13.0-17.5 [facility] Comment on above: Performed By: #### A DIFF, GFR, LIPID, CBC, HFP, BMP, MG, ANEU #### [place] [address] MCH (RBC) [Entitic mass] 31.3 pg Normal 27.0-33.0 [facility] Comment on above: Performed By: #### A DIFF, GFR, LIPID, CBC, HFP, BMP, MG, ANEU #### [place] [address] MCHC 34.7 G/dL Normal 32.0-36.0 [facility] Comment on above: Performed By: #### A DIFF, GFR, LIPID, CBC, HFP, BMP, MG, ANEU #### [place] [address] MCV (RBC) [Entitic vol] 90.2 fL Normal 81.0-100.0 [facility] Comment on above: Performed By: #### A DIFF, GFR, LIPID, CBC, HFP, BMP, MG, ANEU #### [place] [address] Platelet 207 10 3/mcL Normal 150-450 [facility] Comment on above: Performed By: #### A DIFF, GFR, LIPID, CBC, HFP, BMP, MG, ANEU #### [place] [address] Platelet mean volume (Bld) [Entitic vol] 7.6 fL Normal 6.4-10.5 [facility] Comment on above: Performed By: #### A DIFF, GFR, LIPID, CBC, HFP, BMP, MG, ANEU #### [place] [address] RBC 4.80 10 6/mcL Normal 4.50-6.00 [facility] Comment on above: Performed By: #### A DIFF, GFR, LIPID, CBC, HFP, BMP, MG, ANEU #### [place] [address] WBC 7.3 10 3/mcL Normal 4.5-10.8 [facility] Comment on above: Performed By: #### A DIFF, GFR, LIPID, CBC, HFP, BMP, MG, ANEU #### [place] [address] HFPon 02-22-2025 Bili Indirect 0.8 mg/dL Normal 0.1-10.0 [facility] Comment on above: Performed By: #### A DIFF, GFR, LIPID, CBC, HFP, BMP, MG, ANEU #### [place] [address] Albumin Level 3.5 G/dL Normal 3.2-4.8 [facility] Comment on above: Performed By: #### A DIFF, GFR, LIPID, CBC, HFP, BMP, MG, ANEU #### [place] [address] Albumin/Globulin [Mass ratio] 1.5 {ratio} Normal 0.9-1.6 [facility] Comment on above: Performed By: #### A DIFF, GFR, LIPID, CBC, HFP, BMP, MG, ANEU #### [place] [address] ALP [Catalytic activity/Vol] 75 U/L Normal 38-126 [facility] Comment on above: Performed By: #### A DIFF, GFR, LIPID, CBC, HFP, BMP, MG, ANEU #### [place] [address] ALT [Catalytic activity/Vol] 10 U/L Low 12-55 [facility] Comment on above: Performed By: #### A DIFF, GFR, LIPID, CBC, HFP, BMP, MG, ANEU #### [place] [address] AST [Catalytic activity/Vol] 17 U/L Normal 8-34 [facility] Comment on above: Performed By: #### A DIFF, GFR, LIPID, CBC, HFP, BMP, MG, ANEU #### [place] [address] Bili Direct 0.4 mg/dL Normal 0.0-0.4 [facility] Comment on above: Result Comment: Use of this assay is not recommended for patients undergoing treatment with eltrombopag due to the potential for falsely elevated results. Performed By: #### A DIFF, GFR, LIPID, CBC, HFP, BMP, MG, ANEU #### [place] [address] Bili Total 1.20 mg/dL Normal 0.20-1.20 [facility] Comment on above: Result Comment: Use of this assay is not recommended for patients undergoing treatment with eltrombopag due to the potential for falsely elevated results. Performed By: #### A DIFF, GFR, LIPID, CBC, HFP, BMP, MG, ANEU #### [place] [address] Globulin 2.4 G/dL Normal 1.5-3.8 [facility] Comment on above: Performed By: #### A DIFF, GFR, LIPID, CBC, HFP, BMP, MG, ANEU #### [place] [address] Total Protein 5.9 G/dL Normal 5.7-8.2 [facility] Comment on above: Performed By: #### A DIFF, GFR, LIPID, CBC, HFP, BMP, MG, ANEU #### [place] [address] LABORATORYOrdered By: SYSTEM SYSTEM on 02-22-2025 Albumin BCP dye [Mass/Vol] 3.5 G/dL Normal 3.2 - 4.8 G/dL ADM SS Albumin/Globulin [Mass ratio] 1.5 {ratio} Normal 0.9 - 1.6 ratio ADM SS ALP [Catalytic activity/Vol] 75 U/L Normal 38 - 126 U/L ADM SS ALT No additional P-5'-P [Catalytic activity/Vol] 10 U/L Low 12 - 55 U/L ADM SS AST [Catalytic activity/Vol] 17 U/L Normal 8 - 34 U/L AH ADM SS Basophils (Bld) [#/Vol] 0.1 103/mcL Normal 0.0 - 0.3 10^3/mcL AH Workflow SS Basophils/100 WBC (Bld) 1.0 % Normal 0.0 - 2.5 % AH Workflow SS Bili Indirect 0.8 mg/dL Normal 0.1 - 10.0 mg/dL Chemistry S Bilirubin [Mass/Vol] 1.20 mg/dL Normal 0.20 - 1.20 mg/dL ADM SS Comment on above: Interpretive Data: U se of this assay is not recommended for patients undergoing treatment with eltrombopag due to the potential for falsely elevated results. Bilirubin.conjugated [Mass/Vol] 0.4 mg/dL Normal 0.0 - 0.4 mg/dL ADM SS Comment on above: Interpretive Data: U se of this assay is not recommended for patients undergoing treatment with eltrombopag due to the potential for falsely elevated results. Calcium [Mass/Vol] 9.0 mg/dL Normal 8.7 - 10. 4 mg/dL ADM SS Chloride [Moles/Vol] 108 mmol/L Normal 98 - 110 mEq/L ADM SS CO2 [Moles/Vol] 30 mmol/L Normal 22 - 32 mEq/L ADM SS Creatinine [Mass/Vol] 0.82 mg/dL Normal 0.60 - 1.40 mg/dL ADM SS Comment on above: Interpretive Data: T esting performed on etrigg analyzer using enzymatic creatinine methodology. Electrolyte Balance 7.0 mEq/L Normal 4.0 - 15 .0 mEq/L ADM SS Eosinophils (Bld) [#/Vol] 0.8 103/mcL High 0.0 - 0.7 10^3/mcL Workflow SS Eosinophils/100 WBC (Bld) 11.1 % High 0.0 - 6.0 % Workflow SS Erythrocyte distribution width (RBC) [Ratio] 13.1 % Normal 11.5 - 15.5 % Workflow SS Estimated Glomerular Filtration Rate 113 ml/min/1.73sqm Invalid Interpretation Code Chemistry S Comment on above: Interpretive Data: Stages of Chronic Kidney Disease (CKD) Stage Description eGFR(ml/min/1.73 sq.m.) CKD 1 Normal kidney function or >=90 normal kindney function with possible kidney damage (ex. Proteinuria) CKD 2 Kidney damage with mild loss 60-89 of kidney function CKD 3a Mild to moderate loss of kidney 45-59 function CKD 3b Moderate to severe loss of 30-44 of kindey function CKD 4 Severe loss of kidney function 15-29 CKD 5 Kidney failure <15 Note: (go live 2024) the eGFR calculation was updated to the 2020 CKD-EPI creatinine equation without a race factor to calculate the eGFR results. Globulin 2.4 G/dL Normal 1.5 - 3.8 G/dL AH ADM SS Glucose [Mass/Vol] 88 mg/dL Normal 70 - 110 mg/dL AH ADM SS Hematocrit (Bld) [Volume fraction] 43.3 % Normal 40.0 - 52.0 % AH Workflow SS Hemoglobin (Bld) [Mass/Vol] 15.0 G/dL Normal 13.0 - 17.5 G/dL AH Workflow SS Lymphocytes (Bld) [#/Vol] 2.5 103/mcL Normal 0.9 - 4.3 10^3/mcL AH Workflow SS Lymphocytes/100 WBC (Bld) 34.8 % Normal 20.0 - 40.0 % AH Workflow SS Magnesium [Mass/Vol] 2.0 mg/dL Normal 1.6 - 2.4 mg/dL AH ADM SS MCH (RBC) [Entitic mass] 31.3 pg Normal 27.0 - 33.0 pg AH Workflow SS MCHC 34.7 G/dL Normal 32.0 - 36.0 G/dL AH Workflow SS MCV (RBC) [Entitic vol] 90.2 fL Normal 81.0 - 100.0 fL AH Workflow SS Monocytes (Bld) [#/Vol] 0.5 103/mcL Normal 0.1 - 1.4 10^3/mcL AH Workflow SS Monocytes/100 WBC (Bld) 7.3 % Normal 2.0 - 13.0 % AH Workflow SS Neutrophils (Bld) [#/Vol] 3.3 103/mcL Normal 2.3 - 8.1 10^3/mcL AH Workflow SS Neutrophils/100 WBC (Bld) 45.8 % Low 50.0 - 75.0 % AH Workflow SS Platelet mean volume (Bld) [Entitic vol] 7.6 fL Normal 6.4 - 10.5 fL AH Workflow SS Platelets (Bld) [#/Vol] 207 103/mcL Normal 150 - 450 10^3/mcL AH Workflow SS Potassium [Moles/Vol] 3.5 mmol/L Normal 3.5 - 5.0 mEq/L AH ADM SS Protein [Mass/Vol] 5.9 G/dL Normal 5.7 - 8.2 G/dL AH ADM SS RBC (Bld) [#/Vol] 4.80 106/mcL Normal 4.50 - 6.0 0 10^6/mcL AH Workflow SS Sodium [Moles/Vol] 145 mmol/L Normal 136 - 145 mEq/L A H ADM SS WBC (Bld) [#/Vol] 7.3 103/mcL Normal 4.5 - 10.8 10^3/mcL AH Workflow SS LABORATORYOrdered By: Leonel Jackson on 02-22-2025 Cholesterol [Mass/Vol] 112 mg/dL Normal 50 - 199 mg/dL Chemistry S Comment on above: Interpretive Data: C holesterol Reference Interval: Less than 200 Desirable 200-239 Borderline high risk 240 and above High risk Cholesterol in HDL [Mass/Vol] 26 mg/dL Low 40 - 59 mg/dL Chemistry S Cholesterol in LDL [Mass/Vol] 67 mg/dL Normal 0 - 129 mg/dL Chemistry S Triglyceride [Mass/Vol] 96 mg/dL Normal 3 - 149 mg/dL Chemistry S Urea nitrogen [Mass/Vol] mg/dL Low 8.0 - 22.0 mg/dL Chemistry S Urea nitrogen/Creatinine [Mass ratio] Unable to Calculate Invalid Interpretation Code 10.0 - 22.0 Chemistry S Comment on above: Result Comment: Unab le to calculate this test result accurately. Results used to calculate this test are outside the reportable range. LIPIDon 02-22-2025 Cholesterol [Mass/Vol] 112 mg/dL Normal 50-199 [facility] Comment on above: Result Comment: Chol esterol Reference Interval: Less than 200 Desirable 200-239 Borderline high risk 240 and above High risk Performed By: #### A DIFF, GFR, LIPID, CBC, HFP, BMP, MG, ANEU #### [facility] [address] [place] [id number] Cholesterol in HDL [Mass/Vol] 26 mg/dL Low 40-59 [facility] Comment on above: Performed By: #### A DIFF, GFR, LIPID, CBC, HFP, BMP, MG, ANEU #### [address] [address] Cholesterol in LDL [Mass/Vol] 67 mg/dL Normal 0-129 [facility] Comment on above: Performed By: #### A DIFF, GFR, LIPID, CBC, HFP, BMP, MG, ANEU #### [address] [address] Triglyceride [Mass/Vol] 96 mg/dL Normal 3-149 [facility] Comment on above: Performed By: #### A DIFF, GFR, LIPID, CBC, HFP, BMP, MG, ANEU #### [address] [address] MGon 02-22-2025 Magnesium [Mass/Vol] 2.0 mg/dL Normal 1.6-2.4 [facility] Comment on above: Performed By: #### A DIFF, GFR, LIPID, CBC, HFP, BMP, MG, ANEU #### [place] [id number] CNOVon 01-27-2025 CNOV Office Visit (UROLWS ) JOSAFAT ALVARENGA ([id number]) 1985 M Date Time Provider Department 01/27/25 4:30 PM FAUZIA SORENSON URO[place]ANDER During your visit today, we recorded the following information about you: Temperature Pulse Respiration Blood pressure 98.3 degrees 112/minute 14/minute 118/74 Weight Height 77.1 kg 1.702 m Fauzia Sorenson PA-C 02/08/2025 11:40 PM Signed [facility] EST PATIENT CLINIC NOTE NAME: Josafat Alvarenga CHIEF COMPLAINT: Testicle Pain HISTORY OF PRESENT ILLNESS: Josafat Alvarenga is a 39 year old male an established patient following up for Testicle pain The patient reports as well as pain with ejaculation at times. We discus pelvic floor PT and recommend a consult appointment Pelvic Floor dysfunction - PFPT He has been unable to make PFPT appt due to lack of transportation , discussed there may be PFPT more local to him Recommend calling systems protection technician for PFPT and see what's available near [place] LUTS: No change still having same LUTS Other symptoms: ED - yes, unable to maintain erection well LABS: No results found for: PSA No results found for: TESTOST Hematocrit (%) Date Value 10/20/2019 48.2 11/02/2015 48.5 02/24/2014 45.5 No results found for: PSA Creatinine Date Value Ref Range Status 10/20/2019 0.89 0.73 - 1.22 mg/dL Final 10/20/2019 0.89 0.73 - 1.22 mg/dL Final 11/02/2015 0.92 0.70 - 1.40 mg/dL Final MEDICATIONS: albuterol HFA (PROVENTIL HFA, VENTOLIN HFA) 90 mcg/actuation inhaler Inhale 2 Puffs as instructed every 4 hours as needed for wheezing/shortness of breath. hydrOXYzine pamoate (VISTARIL) 25 mg capsule Take 25 mg by mouth once daily. benztropine (COGENTIN) 2 mg tablet Take 2 mg by mouth three times a day. benzonatate (TESSALON PERLES) 100 mg capsule Take 1 capsule by mouth three times a day as needed for cough. cloNIDine HCl (CATAPRES) 0.1 mg tablet Take 0.1 mg by mouth twice daily. INVEGA SUSTENNA 234 mg/1.5 mL syrg injection every 6 months fluticasone (FLOVENT) 220 mcg/actuation inhaler 2 Puffs twice daily. no spacer, swallow do not inhale, rinse and swallow with water, do not eat for 30 min after varenicline (CHANTIX CONTINUING MONTH BOX) 1 mg tablet Take 1 tablet by mouth twice daily. albuterol HFA (PROVENTIL HFA, VENTOLIN HFA) 90 mcg/actuation inhaler Inhale 2 Puffs as instructed every 6 hours as needed for Wheezing/Shortness of Breath. atomoxetine 100 mg capsule Take 100 mg by mouth once daily. meloxicam (MOBIC) 15 mg tablet Take 1 tablet by mouth once daily. Take this directly following a meal paliperidone palmitate (INVEGA TRINZA INTRAMUSC.) Inject intramuscularly. tamsulosin ER (FLOMAX) 0.4 mg cap Take 1 capsule by mouth daily at bedtime. fluconazole (DIFLUCAN) 200 mg tablet Take 400mg loading dose x1 day, then 200mg daily for 14 days total. 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 Last use 2013 History of marijuana use Impotence of organic origin 10/28/2024 Pain in testicle, unspecified laterality 07/15/2024 Pelvic floor dysfunction 07/15/2024 Pelvic pain in male 07/15/2024 Premature ejaculation Schizophrenia (HCC) Seeing Dr. Vicente Seasonal allergies Tobacco use disorder REVIEW OF SYSTEMS: GENERAL: No fever, chills, weight loss, or fatigue. PHYSICAL EXAMINATION: Blood pressure 118/74, pulse 112, temperature 36.8 ?C (98.3 ?F), temperature source Temporal, resp. rate 14, height 170.2 cm (5' 7), weight 77.1 kg (170 lb), SpO2 99%. GENERAL: WNL nutrition, no deformities, healthy appearing GENITOURINARY: MALE EXAM: No scrotal lesions, cysts, rashes. Epididymis AND testes: normal size, position, without masses Urethra AND meatus: normal size AND position w/o lesion or discharge Pelvic Floor - spasms - same as previous exam PROBLEM LIST REVIEW: Yes LABS: ASSESSMENT/PLAN: 1. Pelvic pain in male - ICD9: 789.09, ICD10: R10.2 (primary diagnosis) - CONSULT TO PHYSICAL THERAPY 2. Pain in testicle, unspecified laterality - ICD9: 608.9, ICD10: N50.819 - CONSULT TO PHYSICAL THERAPY 3. Pelvic floor dysfunction - ICD9: 618.83, ICD10: M62.89 New Diagnosis of unknown prognosis > 3 mo Follow-up with VINCENT Malhotra MT, PA-C after PFPT VINCENT Leal MT, PA-C Mooney, Brandon, PA-C 02/08/2025 11:40 PM Signed Orders still active from 07/2024 call to schedule locally near [place] Allergies As of Date: 01/27/2025 Noted Allergy Reaction LATEX 10/25/2005 2 - Rash 4 - Hives 9 - Itching 12 - Shortness of Breath Comments: Rash, eyes swell shut (more content not included)... Normal [facility] .Auto Diffon 11-25-2024 Basophil, Absolute 0.1 10 3/mcL Normal 0.0-0.[address] [facility] Comment on above: Performed By: #### A DIFF, CBC, MDW, BMP, ANEU, TROPHS, GFR #### [address] [address] Basophils/100 WBC (Bld) 1.2 % Normal 0.0-2.5 [facility] Comment on above: Performed By: #### A DIFF, CBC, MDW, BMP, ANEU, TROPHS, GFR #### [address] [address] Eosinophil, Absolute 0.3 10 3/mcL Normal 0.0-0.7 [facility] Comment on above: Performed By: #### A DIFF, CBC, MDW, BMP, ANEU, TROPHS, GFR #### [address] [address] Eosinophils/100 WBC (Bld) 4.7 % Normal 0.0-7.0 [facility] Comment on above: Performed By: #### A DIFF, CBC, MDW, BMP, ANEU, TROPHS, GFR #### [address] [address] Lymphocyte, Absolute 1.5 10 3/mcL Normal 0.9-4.3 [facility] Comment on above: Performed By: #### A DIFF, CBC, MDW, BMP, ANEU, TROPHS, GFR #### [address] [address] Lymphocytes/100 WBC (Bld) 25.5 % Normal 20.0-40.0 [facility] Comment on above: Performed By: #### A DIFF, CBC, MDW, BMP, ANEU, TROPHS, GFR #### [address] [address] Monocyte, Absolute 0.3 10 3/mcL Normal 0.1-1.[address] [facility] Comment on above: Performed By: #### A DIFF, CBC, MDW, BMP, ANEU, TROPHS, GFR #### [address] [address] Monocytes/100 WBC (Bld) 4.6 % Normal 2.0-13.0 [facility] Comment on above: Performed By: #### A DIFF, CBC, MDW, BMP, ANEU, TROPHS, GFR #### [address] [address] Neutrophils/100 WBC (Bld) 64.0 % Normal 50.0-75.0 [facility] Comment on above: Performed By: #### A DIFF, CBC, MDW, BMP, ANEU, TROPHS, GFR #### [address] [address] .GFRon 11-25-2024 GFR 106 ml/min/1.73sqm Normal [facility] Comment on above: Result Comment: GFR Population mean for , Non- Americans Ages 20-29 = 116 mL/min/1.73 sq.m. Ages 30-39 = 107 mL/min/1.73 sq.m. Ages 40-49 = 99 mL/min/1.73 sq.m. Ages 50-59 = 93 mL/min/1.73 sq.m. Ages 60-69 = 85 mL/min/1.73 sq.m. Ages 70+ = 75 mL/min/1.73 sq.m. Chronic Kidney Disease: Less than 60 mL/min/1.73 square meters End Stage Renal Disease: Less than 15 mL/min/1.73 square meters Performed By: #### A DIFF, CBC, MDW, BMP, ANEU, TROPHS, GFR #### [address] [address] GFR Non- 87 ml/min/1.73sqm Normal [facility] Comment on above: Result Comment: GFR Population mean for , Non- Americans Ages 20-29 = 116 mL/min/1.73 sq.m. Ages 30-39 = 107 mL/min/1.73 sq.m. Ages 40-49 = 99 mL/min/1.73 sq.m. Ages 50-59 = 93 mL/min/1.73 sq.m. Ages 60-69 = 85 mL/min/1.73 sq.m. Ages 70+ = 75 mL/min/1.73 sq.m. Chronic Kidney Disease: Less than 60 mL/min/1.73 square meters End Stage Renal Disease: Less than 15 mL/min/1.73 square meters Performed By: #### A DIFF, CBC, MDW, BMP, ANEU, TROPHS, GFR #### [address] [address] .MDWon 11-25-2024 Monocyte Distribution Width 17.65 Normal 0.00-20.00 [facility] Comment on above: Result Comment: For ED adult patients suspected of sepsis, MDW<=20.0 does not rule out sepsis or risk of sepsis Performed By: #### A DIFF, CBC, MDW, BMP, ANEU, TROPHS, GFR #### [address] [address] .NEUABSon 11-25-2024 Neutrophil, Absolute 3.9 10 3/mcL Normal 2.3-8.1 [facility] Comment on above: Performed By: #### A DIFF, CBC, MDW, BMP, ANEU, TROPHS, GFR #### [address] [address] [facility] BUN/Creatinine Ratio 4 ratio Low 7-[address] [facility] Comment on above: Performed By: #### A DIFF, CBC, MDW, BMP, ANEU, TROPHS, GFR #### [address] [address] Calcium [Mass/Vol] 9.5 mg/dL Normal 8.4-10.2 [facility] Comment on above: Performed By: #### A DIFF, CBC, MDW, BMP, ANEU, TROPHS, GFR #### [address] [address] Chloride [Moles/Vol] 104 mmol/L Normal 98-[address] [facility] Comment on above: Performed By: #### A DIFF, CBC, MDW, BMP, ANEU, TROPHS, GFR #### [address] [address] CO2 [Moles/Vol] 29 mmol/L Normal 22-29 [facility] Comment on above: Performed By: #### A DIFF, CBC, MDW, BMP, ANEU, TROPHS, GFR #### [address] [address] Creatinine [Mass/Vol] 0.95 mg/dL Normal 0.70-1.30 [facility] Comment on above: Result Comment: Test ing performed on [employer] Dimension EXL analyzer using a modified kinetic Luz technique. Performed By: #### A DIFF, CBC, MDW, BMP, ANEU, TROPHS, GFR #### [address] [address] Electrolyte Balance 8.0 mEq/L Normal 4.0-15.0 [facility] Comment on above: Performed By: #### A DIFF, CBC, MDW, BMP, ANEU, TROPHS, GFR #### [address] [address] Glucose [Mass/Vol] 121 mg/dL High 70-105 [facility] Comment on above: Performed By: #### A DIFF, CBC, MDW, BMP, ANEU, TROPHS, GFR #### [address] [address] Potassium [Moles/Vol] 3.6 mmol/L Normal 3.5-5.1 [facility] Comment on above: Performed By: #### A DIFF, CBC, MDW, BMP, ANEU, TROPHS, GFR #### [address] [address] Sodium [Moles/Vol] 141 mmol/L Normal 136-145 [facility] Comment on above: Performed By: #### A DIFF, CBC, MDW, BMP, ANEU, TROPHS, GFR #### [address] [address] Urea nitrogen [Mass/Vol] 4 mg/dL Low 7-18 [facility] Comment on above: Performed By: #### A DIFF, CBC, MDW, BMP, ANEU, TROPHS, GFR #### [address] [address] CBCon 11-25-2024 Erythrocyte distribution width (RBC) [Ratio] 13.4 % Normal 11.5-15.5 [facility] Comment on above: Performed By: #### A DIFF, CBC, MDW, BMP, ANEU, TROPHS, GFR #### [address] [address] Hematocrit (Bld) [Volume fraction] 44.8 % Normal 40.0-52.0 [facility] Comment on above: Performed By: #### A DIFF, CBC, MDW, BMP, ANEU, TROPHS, GFR #### [address] [address] Hgb 15.8 G/dL Normal 13.0-17.5 [facility] Comment on above: Performed By: #### A DIFF, CBC, MDW, BMP, ANEU, TROPHS, GFR #### [address] [address] MCH (RBC) [Entitic mass] 31.6 pg Normal 27.0-33.0 [facility] Comment on above: Performed By: #### A DIFF, CBC, MDW, BMP, ANEU, TROPHS, GFR #### [address] [address] MCHC 35.3 G/dL Normal 32.0-36.0 [facility] Comment on above: Performed By: #### A DIFF, CBC, MDW, BMP, ANEU, TROPHS, GFR #### [address] [address] MCV (RBC) [Entitic vol] 89.5 fL Normal 81.0-100.0 [facility] Comment on above: Performed By: #### A DIFF, CBC, MDW, BMP, ANEU, TROPHS, GFR #### [address] [address] Platelet 249 10 3/mcL Normal 150-450 [facility] Comment on above: Performed By: #### A DIFF, CBC, MDW, BMP, ANEU, TROPHS, GFR #### [address] [address] Platelet mean volume (Bld) [Entitic vol] 7.5 fL Normal 6.4-10.5 [facility] Comment on above: Performed By: #### A DIFF, CBC, MDW, BMP, ANEU, TROPHS, GFR #### [place] [address] RBC 5.00 10 6/mcL Normal 4.50-6.00 [facility] Comment on above: Performed By: #### A DIFF, CBC, MDW, BMP, ANEU, TROPHS, GFR #### [place] [address] WBC 6.0 10 3/mcL Normal 4.5-10.8 [facility] Comment on above: Performed By: #### A DIFF, CBC, MDW, BMP, ANEU, TROPHS, GFR #### [place] [address] CVFLURVon 11-25-2024 FLU A PCR Negative Normal Negative [facility] Comment on above: Performed By: #### C VFLURV #### [address] [address] FLU B PCR Negative Normal Negative [facility] Comment on above: Performed By: #### C VFLURV #### [place] [address] RSV PCR Negative Normal Negative [facility] Comment on above: Performed By: #### C VFLURV #### [address] [address] SARS-CoV-2 (COVID-19) RNA TRACY+probe Ql (Unsp spec) Negative Normal Negative [facility] Comment on above: Result Comment: Resu lts from the Xpert Xpress CoV-2/Flu/RSV plus test should be correlated with the clinical history, epidemiological data, and other data available to the clinical evaluating the patient. Performance of the Xpert Xpress CoV-2/Flu/RSV plus test has only been established in nasopharyngeal swab specimen. Erroneous test results might occur from improper specimen collection, failure to follow the recommended sample collection, handling and storage procedures, technical error, or sample mix-up. False negative results may occur if a virus is present at a level below the analytical limit of detection. Viral nucleic acid may persist in vivo, independent of virus viability. Detection of analyte target(s) does not imply that the corresponding virus(es) are infectious or are the causative agents for clinical symptoms. Recent patient exposure to FluMist or other live attenuated influenza vaccines may cause inaccurate positive results. Performed By: #### C VFLURV #### [address] [address] LABORATORYOrdered By: SYSTEM SYSTEM on 11-25-2024 Basophils (Bld) [#/Vol] 0.1 103/mcL Normal 0.0 - 0.2 10^3/mcL AO Workflow SS Basophils/100 WBC (Bld) 1.2 % Normal 0.0 - 2.5 % AO Workflow SS Calcium [Mass/Vol] 9.5 mg/dL Normal 8.4 - 10. 2 mg/dL AO ADM SS Chloride [Moles/Vol] 104 mmol/L Normal 98 - 107 mmol/L AO ADM SS CO2 [Moles/Vol] 29 mmol/L Normal 22 - 29 mmol/L AO AD M SS Creatinine [Mass/Vol] 0.95 mg/dL Normal 0.70 - 1.30 mg/dL AO ADM SS Comment on above: Interpretive Data: T esting performed on Siemens Dimension EXL analyzer using a modified kinetic Luz technique. Electrolyte Balance 8.0 mEq/L Normal 4.0 - 15 .0 mEq/L AO ADM SS Eosinophil, Absolute 0.3 103/mcL Normal 0.0 - 0 .7 10^3/mcL AO Workflow SS Eosinophils/100 WBC (Bld) 4.7 % Normal 0.0 - 7.0 % AO Workflow SS Erythrocyte distribution width (RBC) [Ratio] 13.4 % Normal 11.5 - 15.5 % AO Workflow SS GFR/1.73 sq M.predicted among blacks MDRD (S/P/Bld) [Vol rate/Area] 106 ml/min/1.73sqm Invalid Interpretation Code AO Chemistry S Comment on above: Interpretive Data: GFR Population mean for , Non- Americans Ages 20-29 = 116 mL/min/1.73 sq.m. Ages 30-39 = 107 mL/min/1.73 sq.m. Ages 40-49 = 99 mL/min/1.73 sq.m. Ages 50-59 = 93 mL/min/1.73 sq.m. Ages 60-69 = 85 mL/min/1.73 sq.m. Ages 70+ = 75 mL/min/1.73 sq.m. Chronic Kidney Disease: Less than 60 mL/min/1.73 square meters End Stage Renal Disease: Less than 15 mL/min/1.73 square meters GFR/1.73 sq M.predicted among non-blacks MDRD (S/P/Bld) [Vol rate/Area] 87 ml/min/1.73sqm Invalid Interpretation Code AO Chemistry S Comment on above: Interpretive Data: GFR Population mean for , Non- Americans Ages 20-29 = 116 mL/min/1.73 sq.m. Ages 30-39 = 107 mL/min/1.73 sq.m. Ages 40-49 = 99 mL/min/1.73 sq.m. Ages 50-59 = 93 mL/min/1.73 sq.m. Ages 60-69 = 85 mL/min/1.73 sq.m. Ages 70+ = 75 mL/min/1.73 sq.m. Chronic Kidney Disease: Less than 60 mL/min/1.73 square meters End Stage Renal Disease: Less than 15 mL/min/1.73 square meters Glucose [Mass/Vol] 121 mg/dL High 70 - 105 mg/dL AO ADM SS Hematocrit (Bld) [Volume fraction] 44.8 % Normal 40.0 - 52.0 % AO Workflow SS Hemoglobin (Bld) [Mass/Vol] 15.8 G/dL Normal 13.0 - 17.5 G/dL AO Workflow SS Lymphocytes (Bld) [#/Vol] 1.5 103/mcL Normal 0.9 - 4.3 10^3/mcL AO Workflow SS Lymphocytes/100 WBC (Bld) 25.5 % Normal 20.0 - 40.0 % AO Workflow SS MCH (RBC) [Entitic mass] 31.6 pg Normal 27.0 - 33.0 pg AO Workflow SS MCHC 35.3 G/dL Normal 32.0 - 36.0 G/dL AO Workflow SS MCV (RBC) [Entitic vol] 89.5 fL Normal 81.0 - 100.0 fL AO Workflow SS Monocyte distribution width Auto (Bld) [Entitic vol] 17.65 1 Normal 0.00 - 20.00 AO Workflow SS Comment on above: Result Comment: For ED adult patients suspected of sepsis, MDW<=20.0 does not rule out sepsis or risk of sepsis Monocytes (Bld) [#/Vol] 0.3 103/mcL Normal 0.1 - 1.4 10^3/mcL AO Workflow SS Monocytes/100 WBC (Bld) 4.6 % Normal 2.0 - 13.0 % AO Workflow SS Neutrophils (Bld) [#/Vol] 3.9 103/mcL Normal 2.3 - 8.1 10^3/mcL AO Workflow SS Neutrophils/100 WBC (Bld) 64.0 % Normal 50.0 - 75.0 % AO Workflow SS Platelet mean volume (Bld) [Entitic vol] 7.5 fL Normal 6.4 - 10.5 fL AO Workflow SS Platelets (Bld) [#/Vol] 249 103/mcL Normal 150 - 450 10^3/mcL AO Workflow SS Potassium [Moles/Vol] 3.6 mmol/L Normal 3.5 - 5.1 mmol/L AO ADM SS RBC (Bld) [#/Vol] 5.00 106/mcL Normal 4.50 - 6.0 0 10^6/mcL AO Workflow SS Sodium [Moles/Vol] 141 mmol/L Normal 136 - 145 mmol/L AO ADM SS Troponin I.cardiac DL <= 0.01 ng/mL [Mass/Vol] 4 ng/L Normal 0 - 76 ng/L AO ADM SS Comment on above: Interpretive Data: H igh Sensitive Troponin I Reference Ranges: Female: 0-51 ng/L Male: 0-76 ng/L Testing performed on Shortlist using a homogeneous sandwich chemiluminescent immunoassay based on [employer] technology. Urea nitrogen [Mass/Vol] 4 mg/dL Low 7 - 18 mg/dL AO ADM SS Urea nitrogen/Creatinine [Mass ratio] 4 ratio Low 7 - 27 ratio AO ADM SS WBC (Bld) [#/Vol] 6.0 103/mcL Normal 4.5 - 10.8 10^3/mcL AO Workflow SS LABORATORYOrdered By: Azar Webber on 11-25-2024 FLUAV RNA TRACY+probe Ql (Resp) Negative (11/25/24 11:52 AM) Normal Negative AO Auto Urine SS FLUBV RNA TRACY+probe Ql (Resp) Negative (11/25/24 11:52 AM) Normal Negative AO Auto Urine SS RSV RNA TRACY+probe Ql (Resp) Negative (11/25/24 11:52 AM) Normal Negative AO Auto Urine SS SARS-CoV-2 (COVID-19) RNA TRACY+probe Ql (Resp) Negative 4 (11/25/24 11:52 AM) Normal Negative AO Auto Urine SS Comment on above: Interpretive Data: R esults from the Xpert Xpress CoV-2/Flu/RSV plus test should be correlated with the clinical history, epidemiological data, and other data available to the clinical evaluating the patient. Performance of the Xpert Xpress CoV-2/Flu/RSV plus test has only been established in nasopharyngeal swab specimen. Erroneous test results might occur from improper specimen collection, failure to follow the recommended sample collection, handling and storage procedures, technical error, or sample mix-up. False negative results may occur if a virus is present at a level below the analytical limit of detection. Viral nucleic acid may persist in vivo, independent of virus viability. Detection of analyte target(s) does not imply that the corresponding virus(es) are infectious or are the causative agents for clinical symptoms. Recent patient exposure to FluMist or other live attenuated influenza vaccines may cause inaccurate positive results. [facility] 11-25-2024 High Sensitivity Troponin I 4 ng/L Normal 0-76 [facility] Comment on above: Result Comment: High Sensitive Troponin I Reference Ranges: Female: 0-51 ng/L Male: 0-76 ng/L Testing performed on Shortlist using a homogeneous sandwich chemiluminescent immunoassay based on LOCI technology. Performed By: #### A DIFF, CBC, MDW, BMP, ANEU, TROPHS, GFR #### [facility] [address] [place], [place] [address] XR CHEST 1 VIEWon 11-25-2024 XR CHEST 1 VIEW ORIGINAL EXAMINATION: ONE XRAY VIEW OF THE CHEST 11/25/2024 12:00 pm COMPARISON: None. HISTORY: ORDERING SYSTEM PROVIDED HISTORY: Reason for Exam: chest pain FINDINGS: The lungs are without acute focal process. There is no effusion or pneumothorax. The cardiomediastinal silhouette is without acute process. The osseous structures are without acute process. IMPRESSION: No acute process. Interpreted by: Jun Arviuz DO Preliminary Report By: Jun Arvizu DO Electronically signed By Jun Arvizu DO Dictated Date: 11/25/2024 12:10:40 PM Prelim Date: 11/25/2024 12:10:54 PM Sign Date: 11/25/2024 12:10:54 PM Ordering Provider: FROYLAN Suazo [facility] CNOVon 10-28-2024 CNOV Office Visit (UROLWS ) JOSAFAT ALVARENGA ([id number]) 1985 M Date Time Provider Department 10/28/24 3:30 PM FAUZIA SORENSON URO[place]KSANDER During your visit today, we recorded the following information about you: Pulse Blood pressure Weight 81/minute 124/85 73.5 kg Fauzia Sorenson PA-C 10/28/2024 5:20 PM Signed [facility] EST PATIENT CLINIC NOTE SERVICE DATE: October 28, 2024 NAME: Josafat Alvarenga CHIEF COMPLAINT: ED issues HISTORY OF PRESENT ILLNESS: Josafat Alvarenga is a 39 year old male an established patient following up for ED Issues The patient reports he is continuing PFPT for pain an for Impotence ans well as pain with ejaculation He states he has had PE and less than 60 secs before ejaculates discuss topicals and or medication Continue with PFPT and see him in 3-4 months LUTS: No new LUTS LABS: No results found for: PSA No results found for: TESTOST Hematocrit (%) Date Value 10/20/2019 48.2 11/02/2015 48.5 02/24/2014 45.5 No results found for: PSA Creatinine Date Value Ref Range Status 10/20/2019 0.89 0.73 - 1.22 mg/dL Final 10/20/2019 0.89 0.73 - 1.22 mg/dL Final 11/02/2015 0.92 0.70 - 1.40 mg/dL Final MEDICATIONS: hydrOXYzine pamoate (VISTARIL) 25 mg capsule Take 25 mg by mouth once daily. albuterol HFA (PROVENTIL HFA, VENTOLIN HFA) 90 mcg/actuation inhaler Inhale 2 Puffs as instructed every 4 hours as needed for wheezing/shortness of breath. cloNIDine HCl (CATAPRES) 0.1 mg tablet Take 0.1 mg by mouth twice daily. INVEGA SUSTENNA 234 mg/1.5 mL syrg injection every 6 months atomoxetine 100 mg capsule Take 100 mg by mouth once daily. benztropine (COGENTIN) 2 mg tablet Take 2 mg by mouth three times a day. (Patient not taking: Reported on 10/28/2024) benzonatate (TESSALON PERLES) 100 mg capsule Take 1 capsule by mouth three times a day as needed for cough. (Patient not taking: Reported on 10/28/2024) fluticasone (FLOVENT) 220 mcg/actuation inhaler 2 Puffs twice daily. no spacer, swallow do not inhale, rinse and swallow with water, do not eat for 30 min after (Patient not taking: Reported on 02/28/2024) varenicline (CHANTIX CONTINUING MONTH BOX) 1 mg tablet Take 1 tablet by mouth twice daily. (Patient not taking: Reported on 02/28/2024) albuterol HFA (PROVENTIL HFA, VENTOLIN HFA) 90 mcg/actuation inhaler Inhale 2 Puffs as instructed every 6 hours as needed for Wheezing/Shortness of Breath. meloxicam (MOBIC) 15 mg tablet Take 1 tablet by mouth once daily. Take this directly following a meal (Patient not taking: Reported on 09/04/2023) paliperidone palmitate (INVEGA TRINZA INTRAMUSC.) Inject intramuscularly. (Patient not taking: Reported on 02/28/2024) tamsulosin ER (FLOMAX) 0.4 mg cap Take 1 capsule by mouth daily at bedtime. (Patient not taking: Reported on 02/28/2024) fluconazole (DIFLUCAN) 200 mg tablet Take 400mg loading dose x1 day, then 200mg daily for 14 days total. 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 Last use 2013 History of marijuana use Pain in testicle, unspecified laterality 07/15/2024 Pelvic floor dysfunction 07/15/2024 Pelvic pain in male 07/15/2024 Schizophrenia ([facility]) Seeing Dr. Vicente Seasonal allergies Tobacco use disorder REVIEW OF SYSTEMS: GENERAL: No fever, chills, weight loss, or fatigue. PHYSICAL EXAMINATION: Blood pressure 124/85, pulse 81, weight 73.5 kg (162 lb), SpO2 97%. GENERAL: WNL nutrition, no deformities, healthy appearing PROBLEM LIST REVIEW: Yes LABS: ASSESSMENT/PLAN: 1. Premature ejaculation - ICD9: 302.75, ICD10: F52.4 (primary diagnosis) 2. Pelvic floor dysfunction - ICD9: 618.83, ICD10: M62.89 3. Pain in testicle, unspecified laterality - ICD9: 608.9, ICD10: N50.819 4. 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 Appt w/ VINCENT Malhotra MT, PA-C for new Rx Follow-up VINCENT Leal MT, HARRY Referring Provider: SELF [[id number]] Allergies As of Date: 10/28/2024 Noted Allergy Reaction LATEX 10/25/2005 2 - Rash 4 - Hives 9 - Itching 12 - Shortness of Breath Comments: Rash, eyes swell shut, wheezing FLEXERIL (CYCLOBENZAPRINE HCL) 12/17/2014 5 - Intolerance Comments: Mood change, AND swells throat shut Date Reviewed: 10/28/2024 Reviewed by: Merissa Neal MA - Fully Assessed Reason for Visit: Sexual Prob (more content not included)... Normal [facility] 12 Lead EKGon 10-21-2024 12 Lead EKG [facility] Cardi[facility] [address] [place] [address] 12 Lead EKG 10/21/24 0246 MR#: [id number] Acct: [id number] Name: JOSAFAT ALVARENGA Rep #: [id number] : 1985 39 From: Pravin Carlos MD Attending Dr: Status: DEP ER Ordering Dr: Freddy Batres MD Date: 10/21/24 Location: ED Sex: M C Admitted: Test Reason : NEURO Blood Pressure : */* mmHG Vent. Rate : 88 BPM Atrial Rate : 88 BPM P-R Int : 138 ms QRS Dur : 102 ms QT Int : 392 ms P-R-T Axes : 22 17 51 degrees QTcB Int : 474 ms Normal sinus rhythm Normal ECG Confirmed by MARS JARRELL, PRAVIN ([id number]), associate entertainment editor YOSSI BURGER ([id number]) on 10/21/2024 8:20:06 AM Referred By: Confirmed By: PRAVIN CARLOS MD 10/21/24 0820 Date Pravin Carlos MD CC: Dr. Freddy Batres MD; No Primary Care Physician Signed Normal [facility] Basic Metabolic Profile (BMP )on 10-21-2024 BUN/CRE 17.7 RATIO Normal 08-31 [facility] Comment on above: Performed By: #### L 500.2500, L100.0100 #### [facility] [address] [place], [address] CA,Total 9.3 mg/dL Normal 8.5-10.1 [facility] Comment on above: Performed By: #### L 500.2500, L100.0100 #### [facility] [address] [place], [address] Chloride [Moles/Vol] 102 mmol/L Normal 98-107 [facility] Comment on above: Performed By: #### L 500.2500, L100.0100 #### [facility] [address] [place], [address] CO2 [Moles/Vol] 26.0 mmol/L Normal 21.0-32.0 [facility] Comment on above: Performed By: #### L 500.2500, L100.0100 #### [facility] [address] [place], [address] Creatinine [Mass/Vol] 1.13 mg/dL Normal 0.70-1.30 [facility] Comment on above: Result Comment: The validity of the calculated GFR GFRAA in patients over 70 years has not been determined. Clinical correlation is essential. Performed By: #### L 500.2500, L100.0100 #### [facility] [address] [place], [address] ECRCL 77.63 ml/min Normal [facility] Comment on above: Performed By: #### L 500.2500, L100.0100 #### [facility] [address] [place], [address] EST GFR - AA 92 mL/min Normal >60 [facility] Comment on above: Result Comment: Afri can Kyrgyz GFR Calc Performed By: #### L 500.2500, L100.0100 #### [facility] [address] [place], [address] GAP 8 Normal 5-15 [facility] Comment on above: Performed By: #### L 500.2500, L100.0100 #### [facility] [address] [place], [address] GFR/1.73 sq M.predicted among non-blacks MDRD (S/P/Bld) [Vol rate/Area] 76 mL/min/{1.73_m2} Normal >60 [facility] Comment on above: Result Comment: Non- GFR Calc Performed By: #### L 500.2500, L100.0100 #### [facility] [address] [place], [address] Glucose [Mass/Vol] 110 mg/dL High 74-[address] [facility] Comment on above: Result Comment: Fast ing Glucose result from 100 to 125 mg/dL suggests IMPAIRED HOMEOSTASIS per A.D.A. criteria. Performed By: #### L 500.2500, L100.0100 #### [facility] [address] [place], [address] Potassium [Moles/Vol] 3.2 mmol/L Low 3.5-5.1 [facility] Comment on above: Result Comment: Mode rate Hemolysis, Result may be falsely increased. Performed By: #### L 500.2500, L100.0100 #### [facility] [address] [place], [address] Sodium [Moles/Vol] 136 mmol/L Normal 136-[address] [facility] Comment on above: Performed By: #### L 500.2500, L100.0100 #### [facility] [address] [place], [address] Urea nitrogen [Mass/Vol] 20 mg/dL High 7-18 [facility] Comment on above: Performed By: #### L 500.2500, L100.0100 #### [facility] [address] [place], [address] Brain/Head without Contrasto n 10-21-2024 Brain/Head without Contrast [facility] Imaging Services [address] [place] [address] Brain/Head without Contrast MR#: [id number] Acct: [id number] Name: JOSAFAT ALVARENGA Rep #: [id number] : 1985 M 39 From: Jhony hedrick MD PCP: Care Physician,No Primary Status: [facility] Study: Brain/Head without Contrast Date of Exam: 10/12 Exam# [id number] Ordering Dr: [place] [id number] EXAM: CT HEAD WITHOUT INTRAVENOUS CONTRAST CLINICAL INDICATION: left sided numbness TECHNIQUE: Multiple axial images were obtained of the head without intravenous contrast. This CT exam was performed using one or more of the following dose reduction techniques: automated exposure control, adjustment of the mA and/or kV according to patient size, and/or use of iterative reconstruction technique. RADIATION DOSE: Total DLP: 779.24 mGy-cm. COMPARISON: No relevant prior studies available. FINDINGS: BRAIN AND EXTRA-AXIAL SPACES: Unremarkable. No intra- or extra-axial hemorrhage. No evidence of acute infarct. No intracranial mass or mass effect. There is preservation of the tong/white matter interface. Posterior fossa structures are unremarkable. Ventricles are appropriate for age. No hydrocephalus. Basal cisterns are patent. BONES/JOINTS: Unremarkable. No discrete lytic or blastic abnormalities. SINUSES: Small incidental retention cyst in the right maxillary antrum. Mild mucosal thickening within the ethmoid air cells, extending into the inferior frontal sinuses. No paranasal sinus air-fluid levels. MASTOID AIR CELLS: Unremarkable. Clear. ORBITS: Visualized globes, extraocular muscles, optic nerves and retrobulbar fat appear unremarkable. OTHER: The middle cerebral arteries are not hyperdense. CT/Brain/Head without Contrast IMPRESSION: No acute findings in the head/brain. Mild ethmoid and frontal sinus mucosal thickening. Electronically Signed: Jhony Lin MD at 4:58 EST , CC: Dr. Freddy Batres MD; No Primary Care Physician Transport Analyst: Signed Normal [facility] CBC W/Diff, Automatedon 12-1 0-2024 Absolute Lymph 2.76 X10 3/uL Normal 0.83-4.51 [facility] Comment on above: Performed By: #### L 500.2500, L100.0100 #### [facility] [address] [place], [address] Absolute Neut 3.7 X10 3/uL Normal 2.0-7.7 [facility] Comment on above: Performed By: #### L 500.2500, L100.0100 #### [facility] [address] [place], [address] Basophils/100 WBC (Bld) 0.9 % Normal 0-1 [facility] Comment on above: Performed By: #### L 500.2500, L100.0100 #### [facility] [address] [place], [address] Eosinophils/100 WBC (Bld) 8.9 % High 0-5 [facility] Comment on above: Performed By: #### L 500.2500, L100.0100 #### [facility] [address] [place], [address] Erythrocyte distribution width (RBC) [Ratio] 12.2 % Normal 11.6-14.6 [facility] Comment on above: Performed By: #### L 500.2500, L100.0100 #### [facility] [address] [place], [address] Hematocrit (Bld) [Volume fraction] 42.2 % Normal 40-54 [facility] Comment on above: Performed By: #### L 500.2500, L100.0100 #### [facility] [address] [place], [address] Hemoglobin (Bld) [Mass/Vol] 15.2 g/dL Normal 13.0-16.5 [facility] Comment on above: Performed By: #### L 500.2500, L100.0100 #### [facility] [address] [place], [address] IG% 0.200 Normal 0.0-0.9 [facility] Comment on above: Result Comment: IG% - Immature Granulocytes (promyelocytes, myelocytes and metamyelocytes) > 1% indicates that a LEFT SHIFT is Present. Performed By: #### L 500.2500, L100.0100 #### [facility] [address] [place], [address] Lymphocytes/100 WBC (Bld) 34.5 % Normal 19-41 [facility] Comment on above: Performed By: #### L 500.2500, L100.0100 #### [facility] [address] [place], [address] MCH (RBC) [Entitic mass] 31.7 pg Normal 27.0-32.0 [facility] Comment on above: Performed By: #### L 500.2500, L100.0100 #### [facility] [address] [place], [address] MCHC (RBC) [Mass/Vol] 36.0 g/dL Normal 32-36 [facility] Comment on above: Performed By: #### L 500.2500, L100.0100 #### [facility] [address] [place], [address] MCV (RBC) [Entitic vol] 87.9 fL Normal 80-94 [facility] Comment on above: Performed By: #### L 500.2500, L100.0100 #### [facility] [address] [place], [address] Monocytes/100 WBC (Bld) 9.5 % Normal 0-10 [facility] Comment on above: Performed By: #### L 500.2500, L100.0100 #### [facility] [address] [place], [address] Neutrophils/100 WBC (Bld) 46.0 % Low 47-70 [facility] Comment on above: Performed By: #### L 500.2500, L100.0100 #### [facility] [address] [place], [address] Nucleated RBC (Bld) [#/Vol] 0 10*3/uL Normal 0-5 [facility] Comment on above: Performed By: #### L 500.2500, L100.0100 #### [facility] [address] [place], [address] Platelet mean volume (Bld) [Entitic vol] 10.6 fL Normal 6.2-12.0 [facility] Comment on above: Performed By: #### L 500.2500, L100.0100 #### [facility] [address] [place], [address] Platelets (Bld) [#/Vol] 258 10*3/uL Normal 150-450 [facility] Comment on above: Performed By: #### L 500.2500, L100.0100 #### [facility] [address] [place], [address] RBC (Bld) [#/Vol] 4.80 10*6/uL Normal 4.6-6.2 [facility] Comment on above: Performed By: #### L 500.2500, L100.0100 #### [facility] [address] [place], [address] RDW SD 39.3 fl Normal 35.1-43.9 [facility] Comment on above: Performed By: #### L 500.2500, L100.0100 #### [facility] [address] [place], [address] WBC (Bld) [#/Vol] 8.0 10*3/uL Normal 4.4-11.[address] [facility] Comment on above: Performed By: #### L 500.2500, L100.0100 #### [facility] [address] [place], [address] Emergency Department Summary on 10-21-2024 Emergency Department Summary [facility] Medical Records Department [address] [place] [address] Emergency Department Summary 10/21/24 MR#: [id number] Acct: [id number] Name: JOSAFAT ALVARENGA Rep #: [id number] : 1985 39 From: Freddy Batres MD PCP: Care Physician,No Primary Status:DEP ER Location: ED HPI History of Present Illness Chief Complaint: Neuro S/Sx Informant: patient Onset/Context/Timing Onset: Today and Hours Timing: Continuous Current Severity: Mild Maximum Severity: Mild Narrative Narrative: 39-year-old male history of asthma. Did he awoke and had tingling in his left arm. No weakness. No headache. No chest pain. No trouble moving his arms or legs. No ataxia. No change in his speech or vision. He is never had a stroke or mini stroke. Denies any recent trauma. He is on no blood thinners. Prior similar symptoms: No Recent Illness/Hospitalization : No PFSH PFS Medical History History of intravenous drug abuse Erectile dysfunction Hepatitis C Marijuana smoker Home Medications ???Medication ???Instructions ???Recorded ???Last Taken ???Type NK 10/21/24 Unknown History Allergy/AdvReac Type Severity Reaction Status Date / Time latex Allergy Mild Rash Verified 10/21/24 01:50 cyclobenzaprine HCl (From Allergy Angioedema Verified 10/21/24 01:50 Flexeril) Social History Smoking Status: Current every day smoker tobacco type: cigarettes ROS ROS ED ROS Narrative Denies recent illness. Constitutional Constitutional ED: Denies chills or fever(s) Eyes Eyes: Denies blurry vision ENT ENT ED: Denies ear pain Cardiovascular Cardiovascular: Denies chest pain Respiratory/Chest Respiratory/Chest: Denies cough or dyspnea Genitourinary Genitourinary ED: Denies dysuria or hematuria Musculoskeletal Musculoskeletal: Denies arthralgias or back pain Integumentary Denies abscess or Abrasions Neurologic Neurologic: Denies headache(s) Psychiatric Psychiatric: Denies anxiety Endocrine Endocrinology: Denies cold intolerance Hematologic/Lymphatic Hematologic/Lymphatic: Reports none Allergic/Immunologic Allergic/Immunologic ED: Denies mouth swelling, tongue swelling or urticaria EXAM Physical Exam Narrative Exam Narrative: Well-appearing 39-year-old male no acute distress. Vital signs stable afebrile. H EENT exam pupils round react to light. Extra motions are intact. Normal speech. No facial droop. No trauma. Neck nontender no lymphadenopathy. Lungs clear to auscultation bilateral. Heart regular rate and rhythm rate about 90 no murmur. Chest wall ribs nontender. Abdomen soft nontender. Moving all 4 extremities. 5 out of 5 home health caregiver strength bilaterally. Dorsi plantarflexion intact. No drift. Fingertip to nose within normal limits. He can lift either leg without any difficulty. Back nontender. Skin unremarkable other than tattoos. Neurologically he is awake and alert with no focal motor deficits. NIH is 0. Answering questions and following commands. Benign exam. Const Vital Signs: 10/21/24 01:50 Temperature 98.2 F Temperature Source Oral Pulse Rate 90 Respiratory Rate 16 Blood Pressure 155/96 H Blood Pressure Mean 115 Pulse Ox 99 Oxygen Delivery Method Room Air Positive well nourished and well developed; Negative for obese, cachectic, contractures or unkempt General Appearance ED: well developed and NAD; Negative for unkempt, cachectic, contractures, cyanotic, diaphoretic or pallor Nutritional Appearance: Negative for cachectic or obese HEENT Reports moist mucous membranes Negative for trauma or tenderness Eyes PERRL and EOMs intact bilaterally General Eye ED: Negative for pale conjunctiva Neck no lymphadenopathy, supple and no JVD General: Negative for tenderness Lymph Lymphatic: Negative for other Chest Wall inspection of chest normal and palpation of chest normal Chest: Negative for other Resp normal respiratory effort and clear to auscultation bilaterally Effort and Inspection: Negative for retractions Auscultation: Negative for rales, rhonchi, wheezes or diminished lung sounds Cardio regular rate, regular rhythm, S1 normal heart sound, S2 normal heart sound and no murmurs Palpation: Negative for palpable S3 or palpable S4 Rate: Negative for bradycardia, tachycardic or other Rhythm: Negative for abnormal rhythm GI normal to inspection, nondistended, normoactive bowel sounds, non-tender, non-distended and no masses Inspection: Negative for abdominal distention Palpation: soft; Negative for tender, guarding or rebound tenderness present Back/Spine no CVA tenderness General Back: Negative for CVA tenderness Cervical Spine: Negative for cervical spine tenderness Thoracic S (more content not included)... Normal [facility] [id number] 09-25-2024 [id number] HNO ID: [id number] Author: KAREN AUGUSTIN PT, DPT Service: ? Author Type: Physical Therapist Type: [id number] Filed: 09/25/2024 11:22 Note Text: [facility] Rehabilitation and Sports Therapy Physical Therapy Plan of Care Certification Patient Name: Josafat Alvarenga : 1985 [facility] #: [id number] Date: 09/25/2024 To: Fauzia Sorenson PA-C From Therapist: Karen Augustin PT, DPT RE: Patient Certification/ Recertification Your review, approval and electronic signature are required in order to comply with Payor: RONNY / Plan: JEFFERSON AMITA / Product Type: HMO / regulations. The identified Physical Therapy PLAN OF CARE for the patient is as follows: R10.2 Pelvic pain in male (primary encounter diagnosis) N50.819 Pain in testicle, unspecified laterality K59.09 Chronic constipation PLAN OF CARE: Assessment: Josafat Alvarenga presents with diagnosis of testicle pain that has improved and is now more in the suprapubic region that interferes with altered sexual function, bowel function . The patient presents with impairments in overall function. PROMIS? (Patient-Reported Outcomes Measurement Information System) scores were reviewed and identified as a rehabilitation concern. Prognosis for therapy is Good due to: current objective clinical presentation . The patient will benefit from skilled therapy services to meet the goals established for this plan of care as noted below. Goals for Episode of Care: established 09/25/24 Patient demonstrates independence and compliance with home exercise program. Patient is able to start the stream of urine in less than 5 seconds at least 99% of the time to normalize bladder function. Patient reports firmer stool consistency to combat fecal incontinence.-[place] 3 4 is the goal Patient reports increased water intake to 64-80 ounces/day to promote bladder and bowel health.-Discussed with patient his personal goal/motivational interviewing and today initial goal is to increase water intake Patient to limit caffeine to 1-2 but this will need to be managed for patient long-term cups/day to promote bladder health and reduce urinary urge episodes. Patient reports increased fiber intake up to 25-35 grams per day to normalize bowel health. Patient demonstrates ability to perform diaphragmatic breathing and relaxation practice independently to allow for decreased muscle tightness, decreased pain, and improved bladder/bowel function. Patient will report decreased pain rating by 2 points to meet minimal clinical important difference for numeric pain rating scale. Focus will be on down training pelvic floor with no pain with intercourse, no pain with sitting Patient Goals: no pain ; improved erection / ejaculation Time Frame for Goals and Treatment : 11/24/24 Planned Interventions, Frequency, and Duration: Current Frequency: 2x/week (Decrease to once a week once signs diminish) Duration: 8 weeks Total Number of Visits Planned: 16 Planned Treatment Interventions: Therapeutic exercise (57419), Neuromuscular re-education (68061), Manual therapy (47285), Therapeutic activities (21012), Self-detention management (18056), Functional training, General Conditioning, Biofeedback Pelvic ([id number]) PLAN FOR NEXT VISIT: Addressed left lower quadrant, pelvic floor tone and consider internal rectal if pain continues: Down training: Review fiber and [place] Impact Patient demonstrates good understanding of plan of care and treatment. The above goals and plan of care were discussed and agreed upon by patient/family. For further details regarding this patient refer to the Physical Therapy electronically documented visit dated 09/25/2024. Provider Attestation I have reviewed the treatment plan for Josafat Alvarenga, [facility]# [id number] for the period of 09/25/24 -- 11/24/24, established on 09/25/2024. Signature certifies the need for therapy services. 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 - benzonatate (TESSALON PERLES) 100 mg capsule Take 1 capsule by mouth three times a day as needed for cough. - albuterol HFA (PROVENTIL HFA, VENTOLIN HFA) 90 mcg/actuation inhaler Inhale 2 Puffs as instructed every 4 hours as needed for wheezing/shortness of breath. - cloNIDine HCl (CATAPRES) 0.1 mg tablet Take 0.1 mg by mouth twice daily. - INVEGA SUSTENNA 234 mg/1.5 mL syrg injection every 6 months - fluticasone (FLOVENT) 220 mcg/actuation inhaler 2 Puffs twice daily. no spacer, swallow do not inhale, rinse and swallow with water, do not eat for 30 min after - varenicline (CHANTIX CONTINUING MONTH BOX) 1 mg tablet Take 1 tablet by mouth twice daily. - albuterol HFA (PROVENTIL HFA, VENTOLIN HFA) 90 mcg/actuation inhaler Inhale 2 Puffs as instructed every 6 hours as needed for Wheezing/Shortness of Breath. - atomoxetine 100 mg capsule Take 100 mg by mouth once daily. - meloxicam (MOBIC) 15 mg tablet Take 1 tablet by mouth once daily. Take this directly following a meal - paliperidone palmitate (INVEGA TRINZA INTRAMUSC.) Inject intramuscularly. - tamsulosin ER (FLOMAX) 0.4 mg cap Take 1 capsule by mouth daily at bedtime. - fluconazole (DIFLUCAN) 200 mg tablet Take 400mg loading dose x1 day, then 200mg daily for 14 days total. [employer] Fundraising Collector: Addendum Therapy (PT/OT/Speech/Resp) ID: [id number] 09/25/2024 11:00 AM Author: KAREN AUGUSTIN Signed by KAREN AUGUSTIN PT, DPT on 09/25/2024 at 11:00 AM * * * This document replaces document [id number] * * * Document text: Program_ID:[id number] Access Code: [email or web address] URL: [email or web address] .[email or web address]/ Date: 09-25-2024 Prepared By: KAREN AUGUSTIN Program Notes Squatty potty : 100%ANDnbsp; of the timeANDnbsp; fiber: 25-35 gmsANDnbsp; ANDnbsp;metamucil/ benefiber/ Psyllium ;ANDnbsp; add slowly KIWIS: Miralax:ANDnbsp; adds water to poo WAter:ANDnbsp; ANDnbsp;40 oz... + bottle ;ANDnbsp; wean off MD if you can self massage off the sit bone / ischiocavernosus muscleANDnbsp; sit wide... Exercises - Happy Baby with Pelvic Floor Lengthening - 1 x daily - 7 x weekly - sets - reps - Seated Happy Baby With Trunk Flexion For Pelvic Relaxation - 1 x daily - 7 x weekly - sets - reps - modified happy baby at door - 1 x daily - 7 x weekly - sets - reps - Seated Diaphragmatic Breathing - 1 x daily - 7 x weekly - sets - reps - 10 Minute Guided Meditation - 1 x daily - 7 x weekly - sets - reps Patient Education - cc Pelvic Floor - [place] Stool Chart - High-Fiber Diet to Support Pelvic Health - cc Pelvic Floor - Fiber [facility] THERAPY NTon 09-25-2024 THERAPY NT HNO ID: [id number] Author: KAREN AUGUSTIN, PT, DPT Service: ? Author Type: Physical Therapist Type: Therapy (PT/OT/Speech/Resp) Filed: 09/25/2024 11:00 Note Text: Program_ID:[id number] Access Code: [email or web address] URL: [email or web address]/ Date: 09-25-2024 Prepared By: KAREN AUGUSTIN Program Notes Squatty potty : 100% of the time fiber: 25-35 gms metamucil/ benefiber/ Psyllium ; add slowly KIWIS: Miralax: adds water to poo WAter: 40 oz... + bottle ; wean off MD if you can self massage off the sit bone / ischiocavernosus muscle sit wide... Exercises - Happy Baby with Pelvic Floor Lengthening - 1 x daily - 7 x weekly - sets - reps - Seated Happy Baby With Trunk Flexion For Pelvic Relaxation - 1 x daily - 7 x weekly - sets - reps - modified happy baby at door - 1 x daily - 7 x weekly - sets - reps - Seated Diaphragmatic Breathing - 1 x daily - 7 x weekly - sets - reps - 10 Minute Guided Meditation - 1 x daily - 7 x weekly - sets - reps Patient Education - cc Pelvic Floor - [place] Stool Chart - High-Fiber Diet to Support Pelvic Health - cc Pelvic Floor - Fiber [facility] CNOVon 08-28-2024 CNOV Office Visit (UCWSTR ) JOSAFAT ALVARENGA ([id number]) 1985 M Date Time Provider Department 08/28/24 5:00 PM COMFORT RINCON UCWSTR During your visit today, we recorded the following information about you: Temperature Pulse Respiration Blood pressure 96.2 degrees 89/minute 24/minute 140/100 Weight 76.5 kg Comfort Rincon APRN.DIRECTOR OF HOTEL OPERATIONS 08/28/2024 6:43 PM Signed This note was created using [employer]. Subjective Josafat Alvarenga is a 39 year old male. 39 year old male with PMH asthma presents for illness. Acute onset 24 hours +cough +productive +runny nose +itchy eyes +sore throat +nausea Denies ears Denies fever or chills Denies CP Denies dyspnea Denies emesis Denies diarrhea The history is provided by the patient. No english as a second language instructor was used. Cough This is a new problem. The current episode started yesterday. The problem occurs constantly. The problem has not changed since onset.The cough is Productive of sputum. There has been no fever. Associated symptoms include chills, sweats, ear congestion and rhinorrhea. Pertinent negatives include no chest pain, no weight loss, no ear pain, no headaches, no sore throat, no myalgias, no shortness of breath, no wheezing and no eye redness. He has tried nothing for the symptoms. He is a smoker. His past medical history is significant for asthma. His past medical history does not include bronchitis, pneumonia, bronchiectasis, COPD or emphysema. PAST MEDICAL HISTORY Diagnosis Date Anxiety Asthma Attention deficit disorder Bipolar disorder (HCC) Chronic lower back pain DDD (degenerative disc disease), lumbar with slipped discs Genital herpes Hepatitis C 08/2013 type 2b History of drug use disorder IV heroin and cocaine. Last use 2013 History of marijuana use Pain in testicle, unspecified laterality 07/15/2024 Pelvic floor dysfunction 07/15/2024 Pelvic pain in male 07/15/2024 Schizophrenia ([facility]) Seeing Dr. Vicente Seasonal allergies Tobacco use disorder PAST SURGICAL HISTORY Procedure Laterality Date CIRCUMCISION 08/27/2009 EGD 08/17/14 meat removed from stricture EGD 08/12/2019 foreign body removal EGD FLEXIBLE FOREIGN BODY REMOVAL 04/09/07 [facility] ER, no dilatation ESOPHAGOGASTRODUODENOSC OPY TRANSORAL DIAGNOSTIC 05/13/14 eosinophilic esophagitis,relative stricture ESOPHAGOGASTRODUODENOSC OPY TRANSORAL DIAGNOSTIC 09/30/2014 EGD ESOPHAGOGASTRODUODENOSC OPY TRANSORAL DIAGNOSTIC 06/14/2017 [facility] ER with foreign body removed from esophagus ESOPHAGOGASTRODUODENOSC OPY TRANSORAL DIAGNOSTIC 08/13/2017 [facility] ER with foreign body removal from esophagus EXC VARICOCELE/LIGATION SPERMATIC VEINS SPX 2009 TONSILLECTOMY AND ADENOIDECTOMY TUBES (SPECIFY) TM as child ALLERGIES Latex and Flexeril [Cyclobenzaprine Hcl] MEDICATIONS benztropine (COGENTIN) 2 mg tablet Take 2 mg by mouth three times a day. albuterol HFA (PROVENTIL HFA, VENTOLIN HFA) 90 mcg/actuation inhaler Inhale 2 Puffs as instructed every 4 hours as needed for wheezing/shortness of breath. cloNIDine HCl (CATAPRES) 0.1 mg tablet Take 0.1 mg by mouth twice daily. INVEGA SUSTENNA 234 mg/1.5 mL syrg injection every 6 months atomoxetine 100 mg capsule Take 100 mg by mouth once daily. benzonatate (TESSALON PERLES) 100 mg capsule Take 1 capsule by mouth three times a day as needed for cough. fluticasone (FLOVENT) 220 mcg/actuation inhaler 2 Puffs twice daily. no spacer, swallow do not inhale, rinse and swallow with water, do not eat for 30 min after (Patient not taking: Reported on 02/28/2024) varenicline (CHANTIX CONTINUING MONTH BOX) 1 mg tablet Take 1 tablet by mouth twice daily. (Patient not taking: Reported on 02/28/2024) albuterol HFA (PROVENTIL HFA, VENTOLIN HFA) 90 mcg/actuation inhaler Inhale 2 Puffs as instructed every 6 hours as needed for Wheezing/Shortness of Breath. meloxicam (MOBIC) 15 mg tablet Take 1 tablet by mouth once daily. Take this directly following a meal (Patient not taking: Reported on 09/04/2023) paliperidone palmitate (INVEGA TRINZA INTRAMUSC.) Inject intramuscularly. (Patient not taking: Reported on 02/28/2024) tamsulosin ER (FLOMAX) 0.4 mg cap Take 1 capsule by mouth daily at bedtime. (Patient not taking: Reported on 02/28/2024) fluconazole (DIFLUCAN) 200 mg tablet Take 400mg loading dose x1 day, then 200mg daily for 14 days total. (Patient not taking: Reported on 02/28/2024) No family history on file. Social History Tobacco Use Smoking status: Every Day Current packs/day: 1.00 Average packs/day: 1 pack/day for 23.2 years (23.2 ttl pk-yrs) Types: Cigarettes Start date: 2001 Passive exposure: Never Smokeless tobacco: Never Tobacco comments: 1 pack Vaping Use Vaping status: Never Used Substance Use Topics Alcohol use: Not Currently Comment: Quit in 2018 Drug use: Not Currently Types: Marijuana Com (more content not included)... Normal [facility] COVID AND INFLUENZA A/B AND RSV PCR, ROUTINEon 08-28-2024 SARS-CoV-2 (COVID-19) RNA TRACY+probe Ql (Unsp spec) SARS-COV-2 (AGENT OF COVID-19) RNA: Not detected INFLUENZA A RNA: Not detected INFLUENZA B RNA: Not detected RESPIRATORY SYNCYTIAL VIRUS (RSV) RNA: Not detected Normal [facility] Comment on above: Performed By: #### C VFLRS ####[facility] LABCLIA [id number] [place] [address] [place] STREP A MOLECULAR (POC)on Procedural Control Valid [facility] Strep A (POCT) Negative Negative [facility] XR CHEST 2V FRONTAL/LATon XR CHEST 2V FRONTAL/LAT * * *Final Report* * * DATE OF EXAM: Aug 28 2024 5:20PM WOX [id number] - XR CHEST 2V FRONTAL/LAT / PROCEDURE REASON: multiple diagnoses * * * * Physician Interpretation * * * * EXAMINATION: CHEST RADIOGRAPH (2 VIEW FRONTAL and LATERAL) CLINICAL HISTORY: URI, acute Acute cough MQ: XC2_6 EXAM DATE/TIME: 08/28/2024 5:20 PM COMPARISON: No relevant prior studies available. RESULT: Lines, tubes, and devices: None. Lungs and pleura: No consolidation. No lung mass. No pleural effusion. No pneumothorax. Cardiomediastinal silhouette: Normal cardiomediastinal silhouette. Bones and soft tissues: Unremarkable. IMPRESSION: No acute radiographic abnormality. Transport Analyst: [facility] Transcribe Date/Time: Aug 28 2024 6:06P Dictated by : VALENTINO KAUR MD This examination was interpreted and the report reviewed and electronically signed by: VALENTINO KAUR MD on Aug 28 2024 6:07PM EST [id number] Normal [facility] XR Chest PA and Lateralon IMPRESSION: No acute radiographic abnormality. Transport Analyst: PSCB Transcribe Date/Time: Aug 28 2024 6:06P Dictated by : VALENTINO KAUR MD This examination was interpreted and the report reviewed and electronically signed by: VALENTINO KAUR MD on Aug 28 2024 6:07PM EST DIVISION OF RADIOLOGY * * *Final Report* * * DATE OF EXAM: Aug 28 2024 5:20PM WOX [id number] - XR CHEST 2V FRONTAL/LAT / PROCEDURE REASON: multiple diagnoses * * * * Physician Interpretation * * * * EXAMINATION: CHEST RADIOGRAPH (2 VIEW FRONTAL & LATERAL) CLINICAL HISTORY: URI, acute Acute cough MQ: XC2_6 EXAM DATE/TIME: 08/28/2024 5:20 PM COMPARISON: No relevant prior studies available. RESULT: Lines, tubes, and devices: None. Lungs and pleura: No consolidation. No lung mass. No pleural effusion. No pneumothorax. Cardiomediastinal silhouette: Normal cardiomediastinal silhouette. Bones and soft tissues: Unremarkable. DIVISION OF RADIOLOGY Provider, [facility] - 08/28/2024 * * *Final Report* * * DATE OF EXAM: Aug 28 2024 5:20PM WOX [id number] - XR CHEST 2V FRONTAL/LAT / PROCEDURE REASON: multiple diagnoses * * * * Physician Interpretation * * * * EXAMINATION: CHEST RADIOGRAPH (2 VIEW FRONTAL & LATERAL) CLINICAL HISTORY: URI, acute Acute cough MQ: XC2_6 EXAM DATE/TIME: 08/28/2024 5:20 PM COMPARISON: No relevant prior studies available. RESULT: Lines, tubes, and devices: None. Lungs and pleura: No consolidation. No lung mass. No pleural effusion. No pneumothorax. Cardiomediastinal silhouette: Normal cardiomediastinal silhouette. Bones and soft tissues: Unremarkable. IMPRESSION IMPRESSION: No acute radiographic abnormality. Transport Analyst: DEB Transcribe Date/Time: Aug 28 2024 6:06P Dictated by : VALENTINO KAUR MD This examination was interpreted and the report reviewed and electronically signed by: VALENTINO KAUR MD on Aug 28 2024 6:07PM EST [facility] Radiology Study observation (narrative) [facility] XR Chest PA and LateralOrder ed By: [facility] Provider on 08-28-2024 [facility] CNOVon 07-29-2024 CNOV Office Visit (UROLWS ) JOSAFAT ALVARENGA ([id number]) 1985 M Date Time Provider Department 07/29/24 2:30 PM FAUZIA SORENSON During your visit today, we recorded the following information about you: Temperature Pulse Respiration Blood pressure 98.3 degrees 98/minute 16/minute 122/82 Weight Height 77.6 kg 1.702 m Fauzia Sorenson PA-C 07/29/2024 6:12 PM Signed Rescheduled patient since he has not had his PFPT consult, we will discuss his LUTS and ED furhter once started PFPT. VINCENT Leal, HARRY DAVIS Allergies As of Date: 07/29/2024 Noted Allergy Reaction LATEX 10/25/2005 2 - Rash 4 - Hives 9 - Itching 12 - Shortness of Breath Comments: Rash, eyes swell shut, wheezing FLEXERIL (CYCLOBENZAPRINE HCL) 12/17/2014 5 - Intolerance Comments: Mood change, AND swells throat shut Date Reviewed: 07/29/2024 Reviewed by: Roro Mendoza LPN - Fully Assessed Reason for Visit: Erectile Dysfunction [339] Primary Visit Diagnosis:Pelvic floor dysfunction [M62.89] Other Visit Diagnosis:Impotence of organic origin [N52.9] Prescriptions as of 07/29/2024 - albuterol HFA (PROVENTIL HFA, VENTOLIN HFA) 90 mcg/actuation inhaler Inhale 2 Puffs as instructed every 4 hours as needed for wheezing/shortness of breath. - STRAWBERRY - cloNIDine HCl (CATAPRES) 0.1 mg tablet Take 0.1 mg by mouth twice daily. - INVEGA SUSTENNA 234 mg/1.5 mL syrg injection every 6 months - fluticasone (FLOVENT) 220 mcg/actuation inhaler 2 Puffs twice daily. no spacer, swallow do not inhale, rinse and swallow with water, do not eat for 30 min after - varenicline (CHANTIX CONTINUING MONTH BOX) 1 mg tablet Take 1 tablet by mouth twice daily. - albuterol HFA (PROVENTIL HFA, VENTOLIN HFA) 90 mcg/actuation inhaler Inhale 2 Puffs as instructed every 6 hours as needed for Wheezing/Shortness of Breath. - benztropine (COGENTIN) 1 mg tablet Take 1 mg by mouth three times daily. - atomoxetine 100 mg capsule Take 100 mg by mouth once daily. - meloxicam (MOBIC) 15 mg tablet Take 1 tablet by mouth once daily. Take this directly following a meal - paliperidone palmitate (INVEGA TRINZA INTRAMUSC.) Inject intramuscularly. - tamsulosin ER (FLOMAX) 0.4 mg cap Take 1 capsule by mouth daily at bedtime. - fluconazole (DIFLUCAN) 200 mg tablet Take 400mg loading dose x1 day, then 200mg daily for 14 days total. 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 Follow-up and Disposition History for Encounter Date Provider Department Center 07/29/2024 [id number] SORENSON [facility] Encounter Status:Closed by FAUZIA SORENSON on 07/29/24 [facility] CNOVon 07-15-2024 CNOV Office Visit (UROLWS ) JOSAFAT ALVARENGA ([id number]) 1985 M Date Time Provider Department 07/15/24 2:15 PM FAUZIA SORENSON During your visit today, we recorded the following information about you: Temperature Pulse Respiration Blood pressure 97.6 degrees 110/minute 14/minute 118/84 Weight Height 78 kg 1.702 m Fauzia Sorenson PA-C 07/15/2024 5:42 PM Signed [facility] EST PATIENT CLINIC NOTE SERVICE DATE: July 15, 2024 NAME: Josafat Alvarenga CHIEF COMPLAINT: Testicle Pain HISTORY OF PRESENT ILLNESS: Josafat Alvarenga is a 39 year old male an established patient following up for Testicle pain The patient reports as well as pain with ejaculation at times. We discus pelvic floor PT and recommend a consult appointment Pelvic Floor dysfunction - PFPT LUTS: DYSURIA: yes URGENCY: Yes FREQUENCY:8 per day NOCTURIA: 2 per night STRAINING TO VOID: No EMPTIES COMPLETELY: Yes UTI: No GROSS HEMATURIA: no UA DIPSTICK POSITIVE ONLY: no Other symptoms: ED - yes, unable to maintain erection well prior to vasectomy LABS: No results found for: PSA No results found for: TESTOST Hematocrit (%) Date Value 10/20/2019 48.2 11/02/2015 48.5 02/24/2014 45.5 No results found for: PSA Creatinine Date Value Ref Range Status 10/20/2019 0.89 0.73 - 1.22 mg/dL Final 10/20/2019 0.89 0.73 - 1.22 mg/dL Final 11/02/2015 0.92 0.70 - 1.40 mg/dL Final MEDICATIONS: albuterol HFA (PROVENTIL HFA, VENTOLIN HFA) 90 mcg/actuation inhaler Inhale 2 Puffs as instructed every 4 hours as needed for wheezing/shortness of breath. cloNIDine HCl (CATAPRES) 0.1 mg tablet Take 0.1 mg by mouth twice daily. INVEGA SUSTENNA 234 mg/1.5 mL syrg injection every 6 months STRAWBERRY (Patient not taking: Reported on 02/28/2024) fluticasone (FLOVENT) 220 mcg/actuation inhaler 2 Puffs twice daily. no spacer, swallow do not inhale, rinse and swallow with water, do not eat for 30 min after (Patient not taking: Reported on 02/28/2024) varenicline (CHANTIX CONTINUING MONTH BOX) 1 mg tablet Take 1 tablet by mouth twice daily. (Patient not taking: Reported on 02/28/2024) albuterol HFA (PROVENTIL HFA, VENTOLIN HFA) 90 mcg/actuation inhaler Inhale 2 Puffs as instructed every 6 hours as needed for Wheezing/Shortness of Breath. benztropine (COGENTIN) 1 mg tablet Take 1 mg by mouth three times daily. (Patient not taking: Reported on 02/28/2024) atomoxetine 100 mg capsule Take 100 mg by mouth once daily. (Patient not taking: Reported on 03/25/2024) meloxicam (MOBIC) 15 mg tablet Take 1 tablet by mouth once daily. Take this directly following a meal (Patient not taking: Reported on 09/04/2023) paliperidone palmitate (INVEGA TRINZA INTRAMUSC.) Inject intramuscularly. (Patient not taking: Reported on 02/28/2024) tamsulosin ER (FLOMAX) 0.4 mg cap Take 1 capsule by mouth daily at bedtime. (Patient not taking: Reported on 02/28/2024) fluconazole (DIFLUCAN) 200 mg tablet Take 400mg loading dose x1 day, then 200mg daily for 14 days total. (Patient not taking: Reported on 02/28/2024) PAST MEDICAL HISTORY: PAST MEDICAL HISTORY No date: Anxiety No date: Asthma No date: Attention deficit disorder No date: Bipolar disorder (HCC) No date: Chronic lower back pain No date: DDD (degenerative disc disease), lumbar Comment: with slipped discs No date: Genital herpes 08/2013: Hepatitis C Comment: type 2b No date: History of drug use disorder Comment: IV heroin and cocaine. Last use 2013 No date: History of marijuana use No date: Schizophrenia (HCC) Comment: Seeing Dr. Vicente No date: Seasonal allergies No date: Tobacco use disorder REVIEW OF SYSTEMS: GENERAL: No fever, chills, weight loss, or fatigue. PHYSICAL EXAMINATION: Blood pressure 118/84, pulse 110, temperature 36.4 ?C (97.6 ?F), temperature source Temporal, resp. rate 14, height 170.2 cm (5' 7), weight 78 kg (172 lb), SpO2 95%. GENERAL: WNL nutrition, no deformities, healthy appearing GENITOURINARY: MALE EXAM: No scrotal lesions, cysts, rashes. Epididymis AND testes: normal size, position, without masses Urethra AND meatus: normal size AND position w/o lesion or discharge Pelvic Floor - spasms PROBLEM LIST REVIEW: Yes LABS: Results for orders placed or performed in visit on 04/29/24 GONORRHEA/CHLAMYDIA NAAT Specimen: Urine, First Catch Result Value Ref Range Neisseria gonorrhoeae (GC) Negative for Neisseria gonorrhoeae by amplification Negative for Neisseria gonorrhoeae by amplification Chlamydia trachomatis (CT) Negative for Chlamydia trachomatis by amplificaton Negative for Chlamydia trachomatis by amplification UA DIP, URINE (POC) Result Value Ref Range GLUCOSE UA (POCT) Negative Negative mg/dL BILIRUBIN UA (POCT) Negative Negative KETONE UA (POCT) Negative Neg (more content not included)... Normal [facility] 04-30-2024 [facility] Telephone (JOLIE) JOSAFAT ALVARENGA ([id number]) 1985 M Date Time Provider Department 04/30/24 EMMANUEL GONZALEZ [facility] During your visit today, we recorded the following information about you: Merissa Ray LPN 04/30/2024 9:31 AM Signed Merissa Reed LPN 04/30/2024 9:29 AM Signed ----- Message from Camilo Goldberg MD sent at 04/30/2024 7:07 AM EDT ----- Urine test was negative for gonorrhea and chlamydia. Finish doxycycline course due to exposure. Merissa Ray LPN 04/30/2024 9:31 AM Signed Attempted to reach pt by phone without success. Pt does not have voicemail set up. Try later. SHARDA Dumont Stephanie, RN 04/30/2024 11:44 AM Signed Patient notified of results and provider's instructions. Patient verbalizes understanding. Adelaide Solano, RN Allergies As of Date: 04/30/2024 Noted Allergy Reaction LATEX 10/25/2005 2 - Rash 4 - Hives 9 - Itching 12 - Shortness of Breath Comments: Rash, eyes swell shut, wheezing FLEXERIL (CYCLOBENZAPRINE HCL) 12/17/2014 5 - Intolerance Comments: Mood change, AND swells throat shut Date Reviewed: 04/29/2024 Reviewed by: Jono Chavez APRN.DIRECTOR OF HOTEL OPERATIONS - Fully Assessed Prescriptions as of 04/30/2024 - doxycycline monohydrate (MONODOX) 100 mg capsule Take 1 capsule by mouth two times a day for 7 days. - albuterol HFA (PROVENTIL HFA, VENTOLIN HFA) 90 mcg/actuation inhaler Inhale 2 Puffs as instructed every 4 hours as needed for wheezing/shortness of breath. - STRAWBERRY - cloNIDine HCl (CATAPRES) 0.1 mg tablet Take 0.1 mg by mouth twice daily. - INVEGA SUSTENNA 234 mg/1.5 mL syrg injection every 6 months - fluticasone (FLOVENT) 220 mcg/actuation inhaler 2 Puffs twice daily. no spacer, swallow do not inhale, rinse and swallow with water, do not eat for 30 min after - varenicline (CHANTIX CONTINUING MONTH BOX) 1 mg tablet Take 1 tablet by mouth twice daily. - albuterol HFA (PROVENTIL HFA, VENTOLIN HFA) 90 mcg/actuation inhaler Inhale 2 Puffs as instructed every 6 hours as needed for Wheezing/Shortness of Breath. - benztropine (COGENTIN) 1 mg tablet Take 1 mg by mouth three times daily. - atomoxetine 100 mg capsule Take 100 mg by mouth once daily. - meloxicam (MOBIC) 15 mg tablet Take 1 tablet by mouth once daily. Take this directly following a meal - paliperidone palmitate (INVEGA TRINZA INTRAMUSC.) Inject intramuscularly. - tamsulosin ER (FLOMAX) 0.4 mg cap Take 1 capsule by mouth daily at bedtime. - fluconazole (DIFLUCAN) 200 mg tablet Take 400mg loading dose x1 day, then 200mg daily for 14 days total. 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 trachomatis+N. gonorrhoea e DNA TRACY+probe Ql (Unsp spec)on 04-29-2024 C. trachomatis rRNA TRACY+probe Ql (Unsp spec) Negative Normal Negative for Chlamydia trachomatis by amplificaton [facility] Comment on above: Order Comment: Speci men Type: URINE SPECIMENOrdering Facility: [facility] Address: [address] [place] [address] Performed By: #### [id number] ####[facility] LABCLIA [id number] [place] [address] [place] N. gonorrhoeae rRNA TRACY+probe Ql (Unsp spec) Negative Normal Negative for Neisseria gonorrhoeae by amplification [facility] Comment on above: Order Comment: Speci men Type: URINE SPECIMENOrdering Facility: [facility] Address: [address] [place] [address] Performed By: #### [id number] ####[facility] LABCLIA [id number] [place] [address] [place] CNOVon 04-29-2024 CNOV Office Visit (UCWSTR ) JOSAFAT ALVARENGA ([id number]) 1985 M Date Time Provider Department 04/29/24 1:15 PM JONO CHAVEZ [facility] During your visit today, we recorded the following information about you: Temperature Pulse Respiration Blood pressure 97.3 degrees 94/minute 16/minute 152/86 Weight 84.1 kg Jono Chavez APRN.DIRECTOR OF HOTEL OPERATIONS 04/29/2024 1:41 PM Signed Subjective HPI Nontoxic-appearing male presents to urgent care requesting STD testing. States sexually active with 1 female partner. He found out recently she tested positive for chlamydia. States has had chlamydia past this feels similar. Is having some penile discharge. Denies any testicular pain swelling. Denies any other concerns. Denies any fever body aches chills productive cough chest pain shortness of breath pleuritic pain hemoptysis nausea vomiting abdominal pain change in bowel or bladder habits. Past medical history prescription medication use and allergies reviewed. .Patient presents with: STD check: STD check PAST MEDICAL HISTORY Diagnosis Date Anxiety Asthma Attention deficit disorder Bipolar disorder (HCC) Chronic lower back pain DDD (degenerative disc disease), lumbar with slipped discs Genital herpes Hepatitis C 08/2013 type 2b History of drug use disorder IV heroin and cocaine. Last use 2013 History of marijuana use Schizophrenia (HCC) Seeing Dr. Vicente Seasonal allergies Tobacco use disorder PAST SURGICAL HISTORY Procedure Laterality Date CIRCUMCISION 08/27/2009 EGD 08/17/14 meat removed from stricture EGD 08/12/2019 foreign body removal EGD FLEXIBLE FOREIGN BODY REMOVAL 04/09/07 [facility] ER, no dilatation ESOPHAGOGASTRODUODENOSC OPY TRANSORAL DIAGNOSTIC 05/13/14 eosinophilic esophagitis,relative stricture ESOPHAGOGASTRODUODENOSC OPY TRANSORAL DIAGNOSTIC 09/30/2014 EGD ESOPHAGOGASTRODUODENOSC OPY TRANSORAL DIAGNOSTIC 06/14/2017 [facility] ER with foreign body removed from esophagus ESOPHAGOGASTRODUODENOSC OPY TRANSORAL DIAGNOSTIC 08/13/2017 [facility] ER with foreign body removal from esophagus EXC VARICOCELE/LIGATION SPERMATIC VEINS SPX 2008 TONSILLECTOMY AND ADENOIDECTOMY TUBES (SPECIFY) TM as child ALLERGIES Latex and Flexeril [Cyclobenzaprine Hcl] MEDICATIONS albuterol HFA (PROVENTIL HFA, VENTOLIN HFA) 90 mcg/actuation inhaler Inhale 2 Puffs as instructed every 4 hours as needed for wheezing/shortness of breath. cloNIDine HCl (CATAPRES) 0.1 mg tablet Take 0.1 mg by mouth twice daily. INVEGA SUSTENNA 234 mg/1.5 mL syrg injection every 6 months STRAWBERRY (Patient not taking: Reported on 02/28/2024) fluticasone (FLOVENT) 220 mcg/actuation inhaler 2 Puffs twice daily. no spacer, swallow do not inhale, rinse and swallow with water, do not eat for 30 min after (Patient not taking: Reported on 02/28/2024) varenicline (CHANTIX CONTINUING MONTH BOX) 1 mg tablet Take 1 tablet by mouth twice daily. (Patient not taking: Reported on 02/28/2024) albuterol HFA (PROVENTIL HFA, VENTOLIN HFA) 90 mcg/actuation inhaler Inhale 2 Puffs as instructed every 6 hours as needed for Wheezing/Shortness of Breath. benztropine (COGENTIN) 1 mg tablet Take 1 mg by mouth three times daily. (Patient not taking: Reported on 02/28/2024) atomoxetine 100 mg capsule Take 100 mg by mouth once daily. (Patient not taking: Reported on 03/25/2024) meloxicam (MOBIC) 15 mg tablet Take 1 tablet by mouth once daily. Take this directly following a meal (Patient not taking: Reported on 09/04/2023) paliperidone palmitate (INVEGA TRINZA INTRAMUSC.) Inject intramuscularly. (Patient not taking: Reported on 02/28/2024) tamsulosin ER (FLOMAX) 0.4 mg cap Take 1 capsule by mouth daily at bedtime. (Patient not taking: Reported on 02/28/2024) fluconazole (DIFLUCAN) 200 mg tablet Take 400mg loading dose x1 day, then 200mg daily for 14 days total. (Patient not taking: Reported on 02/28/2024) History reviewed. No pertinent family history. Social History Tobacco Use Smoking status: Every Day Packs/day: 1.00 Years: 15.00 Additional pack years: 0.00 Total pack years: 15.00 Types: Cigarettes Start date: 2001 Passive exposure: Never Smokeless tobacco: Never Tobacco comments: 1 pack Vaping Use Vaping Use: Never used Substance Use Topics Alcohol use: No Comment: None for 20 months Drug use: Yes Types: Marijuana Comment: occasional BP 152/86 Pulse 94 Temp 36.3 ?C (97.3 ?F) (Tympanic) Resp 16 Wt 84.1 kg (185 lb 6.5 oz) SpO2 97% BMI 29.04 kg/m? Review of Systems Constitutional: Negative for chills, fever and malaise/fatigue. HENT: Negative for congestion, ear discharge, ear pain, sinus pain and sore throat. Eyes: Negative for blurred vision, pain, discharge and redness. Respiratory: Negative for cough, hemoptysis, sputum production, shortness of breath, wheezing and stridor. Cardiovascular: Negative fo (more content not included)... Normal [facility] UA DIP, URINE (POC)on 2023 BILIRUBIN UA (POCT) Negative Negative [facility] CLARITY UA (POCT) Clear [facility] COLOR UA (POCT) Yellow [facility] GLUCOSE UA (POCT) Negative Negative mg/dL [facility] Hemoglobin Ql (U) Negative Negative [facility] KETONE UA (POCT) Negative Negative mg/dL [facility] LEUKOCYTES UA (POCT) Negative Negative [facility] NITRITE UA (POCT) Negative [facility] PH UA (POCT) 5.5 4.5 - 8.0 [facility] Protein Ql (U) Negative Negative mg/dL [facility] SPECIFIC GRAVITY UA (POCT) 1.025 1.005 - 1.030 [facility] UROBILINOGEN UA (POCT) 0.2 Normal E.U./dL [facility] Location:[address], [place], [place], [id number] [place] [address] POINT OF CARE [facility] CNOVon 04-04-2024 CNOV Office Visit (UCWSTR ) LYLEJOSAFAT ([id number]) 1985 M Date Time Provider Department 04/04/24 4:15 PM BENEDICT BERG [facility] During your visit today, we recorded the following information about you: Temperature Pulse Respiration Blood pressure 97.1 degrees 89/minute 18/minute 158/86 Weight 84 kg Benedict Berg APRN.CNP 04/04/2024 4:26 PM Signed Subjective HPI HPI Josafat Rosenbaum Lyle is a 38 year old male who presents today for CC of painful urination, testicular pain. This started 1 day ago. Has tried nothing for relief. Symptoms are worsened by nothing. Risk factors recently notified that current sexual partner positive for chlamydia. Denies urinary drainage or rash. .Patient presents with: STD: Chlamydia x1 PAST MEDICAL HISTORY Diagnosis Date Anxiety Asthma Attention deficit disorder Bipolar disorder (HCC) Chronic lower back pain DDD (degenerative disc disease), lumbar with slipped discs Genital herpes Hepatitis C 08/2013 type 2b History of drug use disorder IV heroin and cocaine. Last use 2013 History of marijuana use Schizophrenia (HCC) Seeing Dr. Vicente Seasonal allergies Tobacco use disorder PAST SURGICAL HISTORY Procedure Laterality Date CIRCUMCISION 08/27/2009 EGD 08/17/14 meat removed from stricture EGD 08/12/2019 foreign body removal EGD FLEXIBLE FOREIGN BODY REMOVAL 04/09/07 [facility] ER, no dilatation ESOPHAGOGASTRODUODENOSC OPY TRANSORAL DIAGNOSTIC 05/13/14 eosinophilic esophagitis,relative stricture ESOPHAGOGASTRODUODENOSC OPY TRANSORAL DIAGNOSTIC 09/30/2014 EGD ESOPHAGOGASTRODUODENOSC OPY TRANSORAL DIAGNOSTIC 06/14/2017 [facility] ER with foreign body removed from esophagus ESOPHAGOGASTRODUODENOSC OPY TRANSORAL DIAGNOSTIC 08/13/2017 [facility] ER with foreign body removal from esophagus EXC VARICOCELE/LIGATION SPERMATIC VEINS SPX 2009 TONSILLECTOMY AND ADENOIDECTOMY TUBES (SPECIFY) TM as child ALLERGIES Latex and Flexeril [Cyclobenzaprine Hcl] MEDICATIONS albuterol HFA (PROVENTIL HFA, VENTOLIN HFA) 90 mcg/actuation inhaler Inhale 2 Puffs as instructed every 4 hours as needed for wheezing/shortness of breath. cloNIDine HCl (CATAPRES) 0.1 mg tablet Take 0.1 mg by mouth twice daily. albuterol HFA (PROVENTIL HFA, VENTOLIN HFA) 90 mcg/actuation inhaler Inhale 2 Puffs as instructed every 6 hours as needed for Wheezing/Shortness of Breath. STRAWBERRY (Patient not taking: Reported on 02/28/2024) INVEGA SUSTENNA 234 mg/1.5 mL syrg injection every 6 months fluticasone (FLOVENT) 220 mcg/actuation inhaler 2 Puffs twice daily. no spacer, swallow do not inhale, rinse and swallow with water, do not eat for 30 min after (Patient not taking: Reported on 02/28/2024) varenicline (CHANTIX CONTINUING MONTH BOX) 1 mg tablet Take 1 tablet by mouth twice daily. (Patient not taking: Reported on 02/28/2024) benztropine (COGENTIN) 1 mg tablet Take 1 mg by mouth three times daily. (Patient not taking: Reported on 02/28/2024) atomoxetine 100 mg capsule Take 100 mg by mouth once daily. (Patient not taking: Reported on 03/25/2024) meloxicam (MOBIC) 15 mg tablet Take 1 tablet by mouth once daily. Take this directly following a meal (Patient not taking: Reported on 09/04/2023) paliperidone palmitate (INVEGA TRINZA INTRAMUSC.) Inject intramuscularly. (Patient not taking: Reported on 02/28/2024) tamsulosin ER (FLOMAX) 0.4 mg cap Take 1 capsule by mouth daily at bedtime. (Patient not taking: Reported on 02/28/2024) fluconazole (DIFLUCAN) 200 mg tablet Take 400mg loading dose x1 day, then 200mg daily for 14 days total. (Patient not taking: Reported on 02/28/2024) No family history on file. Social History Tobacco Use Smoking status: Every Day Packs/day: 1.00 Years: 15.00 Additional pack years: 0.00 Total pack years: 15.00 Types: Cigarettes Start date: 2001 Passive exposure: Never Smokeless tobacco: Never Tobacco comments: 1 pack Vaping Use Vaping Use: Never used Substance Use Topics Alcohol use: No Comment: None for 20 months Drug use: Yes Types: Marijuana Comment: occasional ROS Objective Blood pressure 158/86, pulse 89, temperature 36.2 ?C (97.1 ?F), resp. rate 18, weight 84 kg (185 lb 3 oz), SpO2 97%. Physical Exam Constitutional: General: He is not in acute distress. Appearance: Normal appearance. He is not toxic-appearing. Cardiovascular: Rate and Rhythm: Normal rate and regular rhythm. Heart sounds: Normal heart sounds. Pulmonary: Effort: Pulmonary effort is normal. Breath sounds: Normal breath sounds. Abdominal: General: Bowel sounds are normal. Palpations: Abdomen is soft. Tenderness: There is no abdominal tenderness. Genitourinary: Comments: Defers Skin: General: Skin is warm and dry. ASSESSMENT/PLAN: 1. Exposure to chlamydia - ICD9: V01.6, ICD10: Z20.2 (primary diagnosis) Declines any testing, just wants treat (more content not included)... Normal [facility] CNOVon 03-25-2024 CNOV Office Visit (WSTR ) JOSAFAT ALVARENGA ([id number]) 1985 M Date Time Provider Department 03/25/24 12:45 PM WINNIE KIDD [facility] During your visit today, we recorded the following information about you: Temperature Pulse Respiration Blood pressure 98.5 degrees 82/minute 16/minute 122/84 Weight 81.8 kg Winnie Kidd PA 03/25/2024 1:02 PM Signed This note was created using EZBOB. Subjective Josafat Alvarenga is a 38 year old male. HPI 38-year-old male presents for sore throat, headache, fevers, cough, congestion starting yesterday. Patient states he started getting a sore throat yesterday. He has a little bit of runny nose and cough. He has felt sweaty with chills and feverish. Has not actually taken his temperature. No vomiting or diarrhea. He states his son recently tested positive for strep. Patient does have history of asthma and feels like he is wheezing slightly. He ran out of his albuterol inhaler and is requesting a refill. PAST MEDICAL HISTORY Diagnosis Date Anxiety Asthma Attention deficit disorder Bipolar disorder (HCC) Chronic lower back pain DDD (degenerative disc disease), lumbar with slipped discs Genital herpes Hepatitis C 08/2013 type 2b History of drug use disorder IV heroin and cocaine. Last use 2013 History of marijuana use Schizophrenia (HCC) Seeing Dr. Vicente Seasonal allergies Tobacco use disorder PAST SURGICAL HISTORY Procedure Laterality Date CIRCUMCISION 08/27/2009 EGD 08/17/14 meat removed from stricture EGD 08/12/2019 foreign body removal EGD FLEXIBLE FOREIGN BODY REMOVAL 04/09/07 [facility] ER, no dilatation ESOPHAGOGASTRODUODENOSC OPY TRANSORAL DIAGNOSTIC 05/13/14 eosinophilic esophagitis,relative stricture ESOPHAGOGASTRODUODENOSC OPY TRANSORAL DIAGNOSTIC 09/30/2014 EGD ESOPHAGOGASTRODUODENOSC OPY TRANSORAL DIAGNOSTIC 06/14/2017 [facility] ER with foreign body removed from esophagus ESOPHAGOGASTRODUODENOSC OPY TRANSORAL DIAGNOSTIC 08/13/2017 [facility] ER with foreign body removal from esophagus EXC VARICOCELE/LIGATION SPERMATIC VEINS SPX 2008 TONSILLECTOMY AND ADENOIDECTOMY TUBES (SPECIFY) TM as child ALLERGIES Latex and Flexeril [Cyclobenzaprine Hcl] MEDICATIONS ibuprofen (MOTRIN) 800 mg tablet Take 1 tablet by mouth every 8 hours as needed for pain. cloNIDine HCl (CATAPRES) 0.1 mg tablet Take 0.1 mg by mouth twice daily. INVEGA SUSTENNA 234 mg/1.5 mL syrg injection every 6 months albuterol HFA (PROVENTIL HFA, VENTOLIN HFA) 90 mcg/actuation inhaler Inhale 2 Puffs as instructed every 6 hours as needed for Wheezing/Shortness of Breath. STRAWBERRY (Patient not taking: Reported on 02/28/2024) fluticasone (FLOVENT) 220 mcg/actuation inhaler 2 Puffs twice daily. no spacer, swallow do not inhale, rinse and swallow with water, do not eat for 30 min after (Patient not taking: Reported on 02/28/2024) varenicline (CHANTIX CONTINUING MONTH BOX) 1 mg tablet Take 1 tablet by mouth twice daily. (Patient not taking: Reported on 02/28/2024) benztropine (COGENTIN) 1 mg tablet Take 1 mg by mouth three times daily. (Patient not taking: Reported on 02/28/2024) atomoxetine 100 mg capsule Take 100 mg by mouth once daily. (Patient not taking: Reported on 03/25/2024) meloxicam (MOBIC) 15 mg tablet Take 1 tablet by mouth once daily. Take this directly following a meal (Patient not taking: Reported on 09/04/2023) paliperidone palmitate (INVEGA TRINZA INTRAMUSC.) Inject intramuscularly. (Patient not taking: Reported on 02/28/2024) tamsulosin ER (FLOMAX) 0.4 mg cap Take 1 capsule by mouth daily at bedtime. (Patient not taking: Reported on 02/28/2024) fluconazole (DIFLUCAN) 200 mg tablet Take 400mg loading dose x1 day, then 200mg daily for 14 days total. (Patient not taking: Reported on 02/28/2024) No family history on file. Social History Tobacco Use Smoking status: Every Day Packs/day: 1.00 Years: 15.00 Additional pack years: 0.00 Total pack years: 15.00 Types: Cigarettes Start date: 2001 Passive exposure: Never Smokeless tobacco: Never Tobacco comments: 1 pack Vaping Use Vaping Use: Never used Substance Use Topics Alcohol use: No Comment: None for 20 months Drug use: Yes Types: Marijuana Comment: occasional Review of Systems Constitutional: Positive for chills and fever. HENT: Positive for congestion and sore throat. Respiratory: Positive for cough and wheezing. Negative for shortness of breath. Gastrointestinal: Negative for diarrhea and vomiting. Objective BP 122/84 Pulse 82 Temp 36.9 ?C (98.5 ?F) Resp 16 Wt 81.8 kg (180 lb 5.4 oz) SpO2 97% BMI 28.24 kg/m? Physical Exam Vitals and nursing note reviewed. Constitutional: General: He is not in acute distress. Appearance: Normal appearance. He is not toxic-appearing. HENT: Right Ear: Tympanic membrane and ear canal normal. Left Ear: Tympa (more content not included)... Normal [facility] STREP A MOLECULAR (POC)on Procedural Control Valid [facility] Strep A (POCT) Negative Negative [facility] US DOPPLER COMPLETEon 2023 US DOPPLER COMPLETE * * *Final Report* * * DATE OF EXAM: Mar 14 2024 10:58AM [facility] 1033 - US DOPPLER COMPLETE / PROCEDURE REASON: Pain in testicle, unspecified laterality * * * * Physician Interpretation * * * * EXAMINATION: SCROTAL ULTRASOUND WITH DOPPLER IMAGING CLINICAL HISTORY: Pain in testicle, unspecified laterality TECHNIQUE: Sonography of the scrotal contents with color flow and spectral Doppler imaging of the testicular vasculature was performed. Images were obtained and stored in a permanent archive. M: [facility] COMPARISON: None RESULT: RIGHT SCROTUM: Right testis: 5.2 x 2.3 x 3.1 cm. A 1 mm tiny calcification noted. Normal intratesticular arterial and venous flow with normal spectral waveforms. Epididymis: Normal. Vascular flow on Color Doppler is symmetric to the contralateral side. Hydrocele: small present Varicocele: absent LEFT SCROTUM: Left testis: 5.1 x 2.5 x 3.0 cm. A cluster of calcifications (4-5 calcifications) is noted measuring 3 mm. Normal intratesticular arterial and venous flow with normal spectral waveforms. Epididymis: Normal. Vascular flow on Color Doppler is symmetric to the contralateral side. Hydrocele: small present Varicocele: absent IMPRESSION: Bilateral small hydroceles. Foci of tiny calcifications in the bilateral testes Transport Analyst: DEB Transcribe Date/Time: Mar 17 2024 11:11A Dictated by : HAROON EL MD This examination was interpreted and the report reviewed and electronically signed by: HAROON EL MD on Mar 17 2024 11:17AM EST [id number] Normal [facility] US SCROTUM AND CONTENTSon US SCROTUM AND CONTENTS * * *Final Report* * * DATE OF EXAM: Mar 14 2024 10:58AM [facility] 1063 - US SCROTUM AND CONTENTS / PROCEDURE REASON: Pain in testicle, unspecified laterality * * * * Physician Interpretation * * * * EXAMINATION: SCROTAL ULTRASOUND WITH DOPPLER IMAGING CLINICAL HISTORY: Pain in testicle, unspecified laterality TECHNIQUE: Sonography of the scrotal contents with color flow and spectral Doppler imaging of the testicular vasculature was performed. Images were obtained and stored in a permanent archive. M: [facility]_2 COMPARISON: None RESULT: RIGHT SCROTUM: Right testis: 5.2 x 2.3 x 3.1 cm. A 1 mm tiny calcification noted. Normal intratesticular arterial and venous flow with normal spectral waveforms. Epididymis: Normal. Vascular flow on Color Doppler is symmetric to the contralateral side. Hydrocele: small present Varicocele: absent LEFT SCROTUM: Left testis: 5.1 x 2.5 x 3.0 cm. A cluster of calcifications (4-5 calcifications) is noted measuring 3 mm. Normal intratesticular arterial and venous flow with normal spectral waveforms. Epididymis: Normal. Vascular flow on Color Doppler is symmetric to the contralateral side. Hydrocele: small present Varicocele: absent IMPRESSION: Bilateral small hydroceles. Foci of tiny calcifications in the bilateral testes Transport Analyst: EDB Transcribe Date/Time: Mar 17 2024 11:11A Dictated by : HAROON EL MD This examination was interpreted and the report reviewed and electronically signed by: HAROON EL MD on Mar 17 2024 11:17AM EST [id number] Normal [facility] CNPGeovanna 03-12-2024 CNPN Telephone (AKURFL) LYLEJOSAFAT Rosenbaum ([id number]) 1985 M Date Time Provider Department 03/12/24 SONIA KRAMER During your visit today, we recorded the following information about you: Sonia Kramer PA-C 03/12/2024 7:30 AM Signed Please call pt, scheduled with me today, needs to have scrotal us, order in epic, ok to hold on appt until we get scrotal us. HARRY French Jennifer 03/12/2024 8:51 AM Signed Tried calling pt, voicemail full. Sent [employer] message to let him know about needing US first and then appt. Asked him to call me back. Elsie Andujar 03/12/2024 12:47 PM Signed Looks like pt called back and is aware of US and scheduled. Elsie QURESHI Allergies As of Date: 03/12/2024 Noted Allergy Reaction LATEX 10/25/2005 2 - Rash 4 - Hives 9 - Itching 12 - Shortness of Breath Comments: Rash, eyes swell shut, wheezing FLEXERIL (CYCLOBENZAPRINE HCL) 12/17/2014 5 - Intolerance Comments: Mood change, AND swells throat shut Date Reviewed: 02/28/2024 Reviewed by: Jamar Bess MA - Fully Assessed Reason for Visit: Orders [681] Primary Visit Diagnosis:Pain in testicle, unspecified laterality [N50.819] Order(s):US SCROTUM AND CONTENTS [[id number]] Order #: [id number] FUTURE US DOPPLER COMPLETE [[id number]] Order #: [id number] FUTURE Prescriptions as of 03/12/2024 - ibuprofen (MOTRIN) 800 mg tablet Take 1 tablet by mouth every 8 hours as needed for pain. - STRAWBERRY - cloNIDine HCl (CATAPRES) 0.1 mg tablet Take 0.1 mg by mouth twice daily. - INVEGA SUSTENNA 234 mg/1.5 mL syrg injection once every month. - fluticasone (FLOVENT) 220 mcg/actuation inhaler 2 Puffs twice daily. no spacer, swallow do not inhale, rinse and swallow with water, do not eat for 30 min after - varenicline (CHANTIX CONTINUING MONTH BOX) 1 mg tablet Take 1 tablet by mouth twice daily. - albuterol HFA (PROVENTIL HFA, VENTOLIN HFA) 90 mcg/actuation inhaler Inhale 2 Puffs as instructed every 6 hours as needed for Wheezing/Shortness of Breath. - benztropine (COGENTIN) 1 mg tablet Take 1 mg by mouth three times daily. - atomoxetine 100 mg capsule Take 100 mg by mouth once daily. - meloxicam (MOBIC) 15 mg tablet Take 1 tablet by mouth once daily. Take this directly following a meal - paliperidone palmitate (INVEGA TRINZA INTRAMUSC.) Inject intramuscularly. - tamsulosin ER (FLOMAX) 0.4 mg cap Take 1 capsule by mouth daily at bedtime. - fluconazole (DIFLUCAN) 200 mg tablet Take 400mg loading dose x1 day, then 200mg daily for 14 days total. 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] 04/01/2010 Pain in Testicle [N50.819] 04/01/2010 Dysphagia [R13.10] 02/23/2014 Hepatitis C [B19.20] 04/01/2014 NO SHOW [[id number]] 08/31/2014 07/12/2017 Asthma with status asthmaticus [J45.902] Eosinophilic esophagitis [K20.0] 08/23/2017 Preop testing [Z01.818] 10/19/2023 Encounter for sterilization [Z30.2] 10/19/2023 Smoker [F17.200] 10/19/2023 Marijuana use [F12.90] 10/19/2023 IV drug abuse (HCC) [F19.10] 10/19/2023 History of hepatitis C [Z86.19] 10/19/2023 Asthma [J45.909] 10/19/2023 Encounter Status:Closed by SONIA KRAMER on 03/12/24 [facility] CNOVon 02-28-2024 CN Office Visit (AKURFL ) JOSAFAT ALVARENGA ([id number]) 1985 M Date Time Provider Department 02/28/24 10:15 AM SONIA KRAMER During your visit today, we recorded the following information about you: Pulse Height 90/minute 1.702 m Sonia Kramer PA-C 02/28/2024 10:35 AM Signed ESTABLISHED PATIENT OFFICE VISIT HISTORY OF PRESENT ILLNESS: Josafat Alvarenga is a 38 year old male, Ht 170.2 cm (5' 7) BMI 28.42 kg/m2 with a PMH significant for testicle pain. Pt with history of varicocelectomy and vasectomy. Pt states pain started a few weeks ago, pain in both tesicles, but left worse than right. No voiding issues. . LAB: Creatinine Date Value Ref Range Status 10/20/2019 0.89 0.73 - 1.22 mg/dL Final 10/20/2019 0.89 0.73 - 1.22 mg/dL Final No results found for: PSA No results found for: UGLUC, UBILI, UKET, SPGR, UHB, UPH, UPROT, UROBIL, NITRITES, UWBC, UCOLAP MEDICATIONS: cloNIDine HCl (CATAPRES) 0.1 mg tablet Take 0.1 mg by mouth twice daily. INVEGA SUSTENNA 234 mg/1.5 mL syrg injection once every month. albuterol HFA (PROVENTIL HFA, VENTOLIN HFA) 90 mcg/actuation inhaler Inhale 2 Puffs as instructed every 6 hours as needed for Wheezing/Shortness of Breath. atomoxetine 100 mg capsule Take 100 mg by mouth once daily. sulfamethoxazole-trimet hoprim (BACTRIM DS) 800-160 mg per tablet Take 1 tablet by mouth two times a day for 10 days. ibuprofen (MOTRIN) 800 mg tablet Take 1 tablet by mouth every 8 hours as needed for pain. STRAWBERRY (Patient not taking: Reported on 02/28/2024) fluticasone (FLOVENT) 220 mcg/actuation inhaler 2 Puffs twice daily. no spacer, swallow do not inhale, rinse and swallow with water, do not eat for 30 min after (Patient not taking: Reported on 02/28/2024) varenicline (CHANTIX STARTING MONTH BOX) 0.5 mg (11)- 1 mg (42) tablet Take 1 tablet (0.5 mg) by mouth once daily for 3 days, then 1 tablet (0.5 mg) twice daily for 4 days, then one tablet (1 mg) twice daily. varenicline (CHANTIX CONTINUING MONTH BOX) 1 mg tablet Take 1 tablet by mouth twice daily. (Patient not taking: Reported on 02/28/2024) benztropine (COGENTIN) 1 mg tablet Take 1 mg by mouth three times daily. (Patient not taking: Reported on 02/28/2024) meloxicam (MOBIC) 15 mg tablet Take 1 tablet by mouth once daily. Take this directly following a meal (Patient not taking: Reported on 09/04/2023) paliperidone palmitate (INVEGA TRINZA INTRAMUSC.) Inject intramuscularly. (Patient not taking: Reported on 02/28/2024) tamsulosin ER (FLOMAX) 0.4 mg cap Take 1 capsule by mouth daily at bedtime. (Patient not taking: Reported on 02/28/2024) fluconazole (DIFLUCAN) 200 mg tablet Take 400mg loading dose x1 day, then 200mg daily for 14 days total. (Patient not taking: Reported on 02/28/2024) Review of Systems HISTORIES PAST MEDICAL HISTORY Diagnosis Date Anxiety Asthma Attention deficit disorder Bipolar disorder (HCC) Chronic lower back pain DDD (degenerative disc disease), lumbar with slipped discs Genital herpes Hepatitis C 08/2013 type 2b History of drug use disorder IV heroin and cocaine. Last use 2013 History of marijuana use Schizophrenia (HCC) Seeing Dr. Vicente Seasonal allergies Tobacco use disorder No family history on file. Social History Tobacco Use Smoking status: Every Day Packs/day: 1.00 Years: 15.00 Additional pack years: 0.00 Total pack years: 15.00 Types: Cigarettes Start date: 2001 Passive exposure: Never Smokeless tobacco: Never Tobacco comments: 1 pack Vaping Use Vaping Use: Never used Substance Use Topics Alcohol use: No Comment: None for 20 months Drug use: Yes Types: Marijuana Comment: occasional PHYSICAL EXAMINATION GENERAL APPEARANCE: Well appearing, alert, in no acute distress, well-hydrated, well nourished. Genitourinary: MALE EXAM: no torsion, scrotal skin normal, tender on palpation of bilateral epididymis, L > R. ASSESSMENT/PLAN: 1. Pain in testicle, unspecified laterality [N50.819] - ICD9: 608.9, ICD10: N50.819 Bactrim Ice and elevate ibuprofen Sonia Kramer PA-C I spent a total of 20 minutes on the date of the service which included preparing to see the patient, [id number] patient care, completing clinical documentation, obtaining and/or reviewing separately obtained history, performing a medically appropriate examination, and ordering medications, tests, or procedures. Allergies As of Date: 02/28/2024 Noted Allergy Reaction LATEX 10/25/2005 2 - Rash 4 - Hives 9 - Itching 12 - Shortness of Breath Comments: Rash, eyes swell shut, wheezing FLEXERIL (CYCLOBENZAPRINE HCL) 12/17/2014 5 - Intolerance Comments: Mood change, AND swells throat shut Date Reviewed: 02/28/2024 Reviewed by: Jamar Bess MA - Fully Assessed Reason for Visit: Testicular Pain [823] Primary Visit (more content not included)... Normal [facility] UA DIP, URINE (POC)on 2023 BILIRUBIN UA (POCT) Negative Negative [facility] CLARITY UA (POCT) Clear [facility] COLOR UA (POCT) Yellow [facility] GLUCOSE UA (POCT) Negative Negative mg/dL [facility] Hemoglobin Ql (U) Negative Negative [facility] KETONE UA (POCT) Negative Negative mg/dL [facility] LEUKOCYTES UA (POCT) Negative Negative [facility] NITRITE UA (POCT) Negative Negative [facility] PH UA (POCT) 6.0 4.5 - 8.0 [facility] Protein Ql (U) Negative Negative mg/dL [facility] SPECIFIC GRAVITY UA (POCT) 1.020 1.005 - 1.030 [facility] UROBILINOGEN UA (POCT) 0.2 E.U./dL Normal E.U./dL [facility] OPERATIVE NOon 10-23-2023 OPERATIVE NO HNO ID: [id number] Author: Justus Bean Jr., MD Service: Urology Author Type: Physician Type: Operative Report Filed: 10/23/2023 11:27 AM Note Text: [facility] - Operative Report JOSAFAT ALVARENGA : 1985 AGE: 38. SEX: M PATIENT TYPE: A HOSP SVC: URO LOCATION: [facility] ATTENDING PHYSICIAN: JUSTUS BEAN JR CSN NUMBER: [id number] DATE OF SURGERY/PROCEDURE: 10/19/2023 INCISION/PROCEDURE START TIME: 1:50 PM INCISION CLOSE/PROCEDURE END TIME: 1:58 PM PREOPERATIVE DIAGNOSIS: Sterilization. POSTOPERATIVE DIAGNOSIS: Sterilization. SURGEON: Justus Bean Jr, MD SYNOPTIC METEOROLOGIST: No Additional Staff SURGERY/PROCEDURE: Bilateral vasectomy. ANESTHESIA: MAC. COMPLICATIONS: None. HISTORY AND PROCEDURE: Josafat Alvarenga is a 38-year-old gentleman with history of requesting sterilization. The patient counseled on options for management. We elected for vasectomy in the operating room. DESCRIPTION OF PROCEDURE: After being explained the risks, benefits, and alternatives of procedure, the patient was correctly identified, taken to the operative suite, placed on table in supine position. MAC anesthesia was induced, prepped and draped in normal sterile fashion. 1% lidocaine was used to anesthetize bilateral scrotum. No scalpel instrument was used to make bilateral small poke holes in the scrotum. The vas clamp was used to grab each vas deferens. A trunk of vas deferens was then cut out and sent to lab for pathologic analysis. Cautery was used to cauterize the ends of each cut vasectomy site and then a 4-0 Monocryl was used to free tie each cut vasectomy site. Hemostasis was achieved. The cut ends of the vas deferens were placed back in the scrotum. The patient was cleaned, dried, appropriately dressed, and then at this point, reversed from anesthesia having tolerated the procedure well and afterwards taken to postoperative care unit for recovery. Justus Bean Jr, MD MG:[id number] /[id number] Normal [facility] ANES POSTPROC EVALon 023 ANES POSTPROC EVAL HNO ID: [id number] Author: Hi Bauer MD Service: Anesthesiology Author Type: Anesthesiologist Type: Anesthesia Postprocedure Evaluation Filed: 10/19/2023 3:46 PM Note Text: POST ANESTHESIA EVALUATION NOTE : 1985 Procedure Summary Date: 10/19/23 Room / Location: [address] Anesthesia Start: 1340 Anesthesia Stop: 1406 Procedure: VASECTOMY (Bilateral: Testicle) Diagnosis: Encounter for sterilization (Encounter for sterilization [Z30.2]) Surgeons: Justus Bean Jr., MD Responsible Provider: Samuel Larson MD Anesthesia Type: MAC ASA Status: 2 Anesthesia Type: MAC Last Vitals Vitals Value Taken Time BP 111/85 10/19/23 1506 Temp 36.7 ?C (98.1 ?F) 10/19/23 1405 Pulse 67 10/19/23 1546 Resp 15 10/19/23 1450 SpO2 98 % 10/19/23 1514 Vitals shown include unfiled device data. Post Anesthesia Patient Status Patient Evaluation: PACU. PACU/ICU Patient Condition: stable. Anticipated Disposition: phase 2 then home. Neurological Status: aware and responsive. Pulmonary Status: breathing comfortably on room air Airway Control: returned to baseline unsupported. Cardiovascular Status: stable. Pain Management: clinically adequate Postoperative Hydration: acceptable. Intraoperative Events: no significant anesthesia events Recommendation: continue current plan of care. Anesthesia Observations No Documentation SIGNATURE: Hi Bauer MD PATIENT NAME: Josafat Alvarenga DATE: October 19, 2023 TIME: 3:46 PM CSN: [id number] Normal [facility] ANES PRE-OPon 10-19-2023 ANES PRE-OP HNO ID: [id number] Author: Samuel Larson MD Service: Anesthesiology Author Type: Physician Type: Anesthesia Preprocedure Evaluation Filed: 10/19/2023 1:19 PM Note Text: ANESTHESIOLOGY DAY OF SURGERY NOTE : 1985 Procedure Information Date/Time: 10/19/23 1335 Procedure: VASECTOMY (Bilateral: Testicle) Location: [address] Surgeons: Justus Bean Jr., MD Estimated body mass index is 28.51 kg/m? as calculated from the following: Height as of this encounter: 170.2 cm (5' 7). Weight as of this encounter: 82.6 kg (182 lb). Most recent hematocrit and potassium results: Hematocrit 48.2 10/20/2019 Potassium 3.9 10/20/2019 Relevant Problems CARDIO (+) Scrotal varices -RENAL (+) Hepatitis C NEURO-PSYCH (+) History of hepatitis C PULMONARY (+) Asthma (+) Asthma with status asthmaticus (+) History of hepatitis C I - PHYSICAL EVALUATION AIRWAY Patient intubated: No. Tracheostomy tube not present Mallampati: II. TM distance: >3 FB. Neck ROM: full ROM without neurological symptoms. Mouth opening: adequate. Short neck: no. Thick neck: no Spears present: yes DENTAL Dental findings: teeth intact. II - ANESTHESIA PLAN ASA Score: 2 Anesthetic Plan: MAC The patient is a current smoker. NPO Status: adequate Beta Scotty Monitoring Plan Monitoring plan: standard ASA. Post Procedure Analgesic Plan Postoperative analgesic plan: multimodal analgesia. Informed Consent Anesthetic risks, benefits, alternatives, personnel and consent discussed: yes. Patient / Responsible Democrat agrees to proceed: yes Patient / Surrogate agrees to blood products: blood products not planned Potential Anesthesia issues that may suggest increased risk of complications or contraindication to planned procedure: none. Vitals Value Taken Time BP 117/84 10/19/23 1236 Pulse 73 10/19/23 1236 Resp 20 10/19/23 1236 Temp 36 ?C (96.8 ?F) 10/19/23 1236 SpO2 95 % 10/19/23 1236 Facility-Administered Medications as of 10/19/2023 Medication Dose Route Frequency - lidocaine 10 mg/mL (1 %) 1-2 mg injection (XYLOCAINE) 0.1-0.2 mL INTRADERMAL PRN - lactated ringers iv infusion 5-30 mL/hr INTRAVENOUS CONTINUOUS - NaCl 0.9% iv flush bag 20 mL INTRAVENOUS PRN - ceFAZolin iv piggyback 2 g in D5W (iso-osmotic) 100 mL (ANCEF) 2 g INTRAVENOUS ONCE Outpatient Medications as of 10/19/2023 Medication Sig - cloNIDine HCl (CATAPRES) 0.1 mg tablet Take 0.1 mg by mouth twice daily. - INVEGA SUSTENNA 234 mg/1.5 mL syrg injection once every month. - albuterol HFA (PROVENTIL HFA, VENTOLIN HFA) 90 mcg/actuation inhaler Inhale 2 Puffs as instructed every 6 hours as needed for Wheezing/Shortness of Breath. - atomoxetine 100 mg capsule Take 100 mg by mouth once daily. - STRAWBERRY - fluticasone (FLOVENT) 220 mcg/actuation inhaler 2 Puffs twice daily. no spacer, swallow do not inhale, rinse and swallow with water, do not eat for 30 min after - varenicline (CHANTIX STARTING MONTH BOX) 0.5 mg (11)- 1 mg (42) tablet Take 1 tablet (0.5 mg) by mouth once daily for 3 days, then 1 tablet (0.5 mg) twice daily for 4 days, then one tablet (1 mg) twice daily. - varenicline (CHANTIX CONTINUING MONTH BOX) 1 mg tablet Take 1 tablet by mouth twice daily. - benztropine (COGENTIN) 1 mg tablet Take 1 mg by mouth three times daily. - meloxicam (MOBIC) 15 mg tablet Take 1 tablet by mouth once daily. Take this directly following a meal (Patient not taking: Reported on 09/04/2023) - paliperidone palmitate (INVEGA TRINZA INTRAMUSC.) Inject intramuscularly. - tamsulosin ER (FLOMAX) 0.4 mg cap Take 1 capsule by mouth daily at bedtime. - fluconazole (DIFLUCAN) 200 mg tablet Take 400mg loading dose x1 day, then 200mg daily for 14 days total. I have interviewed and examined the patient. I have reviewed the medical record and/or the pre-anesthesia evaluation, pertinent labs, and test results. This contains updated information obtained within 48 hours of Surgery/Procedure. SIGNATURE: Samuel Larson MD PATIENT NAME: Josafat Alvarenga DATE: October 19, 2023 TIME: 1:19 PM CSN: [id number] [facility] BRIEF OP NOTon 10-19-2023 BRIEF OP NOT HNO ID: [id number] Author: Justus Bean Jr., MD Service: Urology Author Type: Physician Type: Brief Op Note Filed: 10/19/2023 2:00 PM Note Text: BRIEF OPERATIVE / PROCEDURE NOTE LOG ID: * No surgery found * Surgery/Procedure Date: * No surgery found * Incision/Procedure Start Time: Incision Close/Procedure End Time: Surgeon(s)/Proceduralis t(s) and Networking Technician(s): * Surgery not found * * Surgery not found * Procedure(s): vasectomy Anesthesia: * No surgery found * Findings: as dx suggests Estimated Blood Loss: 0 ml Specimens: None Complications: None Pre-Op/Pre-Procedure Diagnosis: sterilization Post-Op/Post-Procedure Diagnosis: * No surgery found * same SIGNATURE: Justus Bean Jr, MD PATIENT NAME: @patient name@ DATE: October 19, 2023 TIME: @[facility]@ PAGER/CONTACT #: [phone] [facility] HISTORY PHYSICALon 3 HISTORY PHYSICAL HNO ID: [id number] Author: Esther Haney APRN.CNP Service: Anesthesiology Author Type: Nurse Practitioner Type: HANDP Filed: 10/19/2023 1:17 PM Note Text: HISTORY AND PHYSICAL EXAMINATION Josafat Alvarenga 1985 SERVICE DATE: 10/19/2023 SERVICE TIME: 12:14 PM PRIMARY CARE PHYSICIAN: Emmanuel Gonzalez MD SURGEON: Surgeon(s) and Role: * Justus Bean Jr., MD - Primary ANESTHESIA: Monitored Anesthesia Care DIAGNOSIS: Encounter for sterilization [Z30.2] PROCEDURE: Procedure(s): VASECTOMY (Bilateral) ACTIVE PROBLEM LIST Attention Deficit Disorder Without Mention of Hyperactivity Unspecified Asthma(493.90) Allergic Rhinitis, Cause Unspecified Bladder Neck Obstruction Scrotal Varices Bipolar Disorder (Hcc) Paranoid Type Schizophrenia (Hcc) Anxiety Retention of Urine, Unspecified Detrusor Sphincter Dyssynergia Pain in Testicle Dysphagia Hepatitis C Asthma With Status Asthmaticus Eosinophilic Esophagitis Subjective The reason for this visit is to perform a comprehensive review of the patient's past medical history, assess their current health status and obtain any additional testing required based on anesthesia guidelines. We will also identify any potential anesthesia problems or contraindications to the planned procedure. CHIEF COMPLAINT: Pt desires sterilization HPI: This is a 38 year old male who presents for surgical intervention. Pt desires sterlization. Pt has 4 children. He denies any complaints today. ANESTHESIA FINDINGS: Intubation History: No history of difficult intubation Significant Anesthesia Considerations: None FAMILY PROBLEMS WITH ANESTHESIA: no history of adverse anesthetic event METS: Climb a flight of stairs or walk up a hill (5.50 METs) FUNCTIONAL STATUS: Independent PAST MEDICAL HISTORY Diagnosis Date Anxiety Asthma Attention deficit disorder Bipolar disorder (HCC) Chronic lower back pain DDD (degenerative disc disease), lumbar with slipped discs Genital herpes Hepatitis C 08/2013 type 2b History of drug use disorder IV heroin and cocaine. Last use 2013 History of marijuana use Quit 10/2016 Schizophrenia (HCC) Seeing Dr. Vicente Seasonal allergies Tobacco use disorder PAST SURGICAL HISTORY Procedure Laterality Date CIRCUMCISION 08/27/2009 EGD 08/17/14 meat removed from stricture EGD 08/12/2019 foreign body removal EGD FLEXIBLE FOREIGN BODY REMOVAL 04/09/07 [facility] ER, no dilatation ESOPHAGOGASTRODUODENOSC OPY TRANSORAL DIAGNOSTIC 05/13/14 eosinophilic esophagitis,relative stricture ESOPHAGOGASTRODUODENOSC OPY TRANSORAL DIAGNOSTIC 09/30/2014 EGD ESOPHAGOGASTRODUODENOSC OPY TRANSORAL DIAGNOSTIC 06/14/2017 [facility] ER with foreign body removed from esophagus ESOPHAGOGASTRODUODENOSC OPY TRANSORAL DIAGNOSTIC 08/13/2017 [facility] ER with foreign body removal from esophagus EXC VARICOCELE/LIGATION SPERMATIC VEINS SPX 2009 TONSILLECTOMY AND ADENOIDECTOMY TUBES (SPECIFY) TM as child History reviewed. No pertinent family history. Social History Tobacco Use Smoking status: Every Day Packs/day: 1.00 Years: 15.00 Additional pack years: 0.00 Total pack years: 15.00 Types: Cigarettes Start date: 2001 Passive exposure: Never Smokeless tobacco: Never Tobacco comments: 1 pack Vaping Use Vaping Use: Never used Substance Use Topics Alcohol use: No Comment: None for 20 months Drug use: Yes Types: Marijuana Comment: occasional Prior to Admission medications as of 10/19/23 1256 Medication Sig Last Dose Taking cloNIDine HCl (CATAPRES) 0.1 mg tablet Take 0.1 mg by mouth twice daily. 10/18/2023 Yes INVEGA SUSTENNA 234 mg/1.5 mL syrg injection once every month. 10/18/2023 Yes albuterol HFA (PROVENTIL HFA, VENTOLIN HFA) 90 mcg/actuation inhaler Inhale 2 Puffs as instructed every 6 hours as needed for Wheezing/Shortness of Breath. 10/19/2023 at 0930 Yes atomoxetine 100 mg capsule Take 100 mg by mouth once daily. 10/19/2023 Yes STRAWBERRY fluticasone (FLOVENT) 220 mcg/actuation inhaler 2 Puffs twice daily. no spacer, swallow do not inhale, rinse and swallow with water, do not eat for 30 min after varenicline (CHANTIX STARTING MONTH BOX) 0.5 mg (11)- 1 mg (42) tablet Take 1 tablet (0.5 mg) by mouth once daily for 3 days, then 1 tablet (0.5 mg) twice daily for 4 days, then one tablet (1 mg) twice daily. varenicline (CHANTIX CONTINUING MONTH BOX) 1 mg tablet Take 1 tablet by mouth twice daily. benztropine (COGENTIN) 1 mg tablet Take 1 mg by mouth three times daily. meloxicam (MOBIC) 15 mg tablet Take 1 tablet by mouth once daily. Take this directly following a meal Patient not taking: Reported on 09/04/2023 paliperidone palmitate (INVEGA TRINZA INTRAMUSC.) Inject intramuscularly. tamsulosin ER (FLOMAX) 0.4 mg cap Take 1 capsule by mouth daily at bedtime. fluconazole (DIFLUCAN) 200 mg tablet Take 400mg loading dose x1 day, then 200mg daily for 14 days total. (more content not included)... Normal [facility] SURGICAL PATHOLOGYon 023 CASE REPORT [facility] Comment on above: Order Comment: Speci men Type: TISSUE SPECIMENOrdering Facility: [facility] Address: [address] [place] [address] Result Comment: Surg ical Pathology Report Case: [id number] Authorizing Provider: Justus Bean Jr., Collected: 10/19/2023 01:55 PM MD Ordering Location: [facility] Received: 10/22/2023 03:14 PM Laboratory Pathologist: Debbie Mckoy MD Specimens: A) - VAS DEFERENS RIGHT B) - VAS DEFERENS LEFT Performed By: #### S ####[facility] LABORATORYCLIA [id number] [address] CLINICAL HISTORY Encounter for sterilization Normal [facility] Comment on above: Order Comment: Speci men Type: TISSUE SPECIMENOrdering Facility: [facility] Address: [address] [place] [address] Performed By: #### S ####[facility] LABORATORYCLIA [id number] [address] FINAL DIAGNOSIS [facility] Comment on above: Order Comment: Speci men Type: TISSUE SPECIMENOrdering Facility: [facility] Address: [address] [place] [address] Result Comment: A. R ight vas deferens, vasectomy: -- Segment of vas deferens, completely transected. B. Left vas deferens, vasectomy: -- Segment of vas deferens, completely transected. Performed By: #### S ####[facility] LABORATORYCLIA [id number] [address] FINAL PERFORMING LAB Normal [facility] Comment on above: Order Comment: Speci men Type: TISSUE SPECIMENOrdering Facility: [facility] Address: [address] [place] [address] Result Comment: Diag nostic interpretation performed at [facility], [address] [place] [address] CLIA# [id number] Retail Salesworker: Ramo Webb M.D. Performed By: #### S ####[facility] LABORATORYIA [id number] [address] [place] GROSS DESCRIPTION Normal [facility] Comment on above: Order Comment: Speci men Type: TISSUE SPECIMENOrdering Facility: [facility] Address: [address] [place], [place] [address] [address] Result Comment: A. V DEFERENS RIGHT Received in formalin labeled vas deferens right is a cylindrical white soft segment of tissue measuring 1.8 x 0.4 x 0.4 cm. Pinpoint lumens are present. The specimen is sectioned. A senior account representative section is submitted in formalin in 1 cassette. B. VAS DEFERENS LEFT Received in formalin labeled vas deferens left is a cylindrical white soft segment of tissue measuring 1.9 x 0.4 x 0.4 cm. Pinpoint lumens are present. The specimen is sectioned. A senior account representative section is submitted in formalin in 1 cassette. Gross examination performed at [facility], [address] [place] [address] KVB October 23, 2023 8:51 AM Performed By: #### S ####[facility] LABORATORYIA [id number] [address] OF [place] CNPGeovanna 07-24-2023 [facility] Telephone (KARELY) JOSAFAT ALVARENGA ([id number]) 1985 M Date Time Provider Department 07/24/23 THERESA TERRY During your visit today, we recorded the following information about you: Theresa Terry MD 07/24/2023 8:31 AM Signed Patient cancelled surgery AM of surgery Allergies As of Date: 07/24/2023 Noted Allergy Reaction LATEX 10/25/2005 2 - Rash 4 - Hives 9 - Itching 12 - Shortness of Breath Comments: Rash, eyes swell shut, wheezing FLEXERIL (CYCLOBENZAPRINE HCL) 12/17/2014 5 - Intolerance Comments: Mood change, AND swells throat shut Date Reviewed: 07/22/2023 Reviewed by: Theresa Terry MD - Fully Assessed Prescriptions as of 07/24/2023 - STRAWBERRY - cloNIDine HCl (CATAPRES) 0.1 mg tablet Take 0.1 mg by mouth twice daily. - INVEGA SUSTENNA 234 mg/1.5 mL syrg injection once every month. - fluticasone (FLOVENT) 220 mcg/actuation inhaler 2 Puffs twice daily. no spacer, swallow do not inhale, rinse and swallow with water, do not eat for 30 min after - varenicline (CHANTIX STARTING MONTH BOX) 0.5 mg (11)- 1 mg (42) tablet Take 1 tablet (0.5 mg) by mouth once daily for 3 days, then 1 tablet (0.5 mg) twice daily for 4 days, then one tablet (1 mg) twice daily. - varenicline (CHANTIX CONTINUING MONTH BOX) 1 mg tablet Take 1 tablet by mouth twice daily. - albuterol HFA (PROVENTIL HFA, VENTOLIN HFA) 90 mcg/actuation inhaler Inhale 2 Puffs as instructed every 6 hours as needed for Wheezing/Shortness of Breath. - benztropine (COGENTIN) 1 mg tablet Take 1 mg by mouth three times daily. - atomoxetine 100 mg capsule Take 100 mg by mouth once daily. - meloxicam (MOBIC) 15 mg tablet Take 1 tablet by mouth once daily. Take this directly following a meal - paliperidone palmitate (INVEGA TRINZA INTRAMUSC.) Inject intramuscularly. - tamsulosin ER (FLOMAX) 0.4 mg cap Take 1 capsule by mouth daily at bedtime. - fluconazole (DIFLUCAN) 200 mg tablet Take 400mg loading dose x1 day, then 200mg daily for 14 days total. 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 06-01-2023 [facility] Telephone (UROLAG) JOSAFAT ALVARENGA ([id number]) 1985 M Date Time Provider Department 06/01/23 THERESA TERRY During your visit today, we recorded the following information about you: Roro Robison 06/01/2023 3:45 PM Signed Rescheduled surgery (due to sterilization consent) with Dr Terry to 07/24/23 @ [facility] arrive at 7:00am. Patient notified and surgery information mailed. Roro Qureshi Allergies As of Date: 06/01/2023 Noted Allergy Reaction LATEX 10/25/2005 2 - Rash 4 - Hives 9 - Itching 12 - Shortness of Breath Comments: Rash, eyes swell shut, wheezing FLEXERIL (CYCLOBENZAPRINE HCL) 12/17/2014 5 - Intolerance Comments: Mood change, AND swells throat shut Date Reviewed: 06/01/2023 Reviewed by: Juan Daniel Solano Ma - Fully Assessed Reason for Visit: Schedule Surgery [1330] Prescriptions as of 06/01/2023 - cloNIDine HCl (CATAPRES) 0.1 mg tablet Take 0.1 mg by mouth twice daily. - INVEGA SUSTENNA 234 mg/1.5 mL syrg injection once every month. - fluticasone (FLOVENT) 220 mcg/actuation inhaler 2 Puffs twice daily. no spacer, swallow do not inhale, rinse and swallow with water, do not eat for 30 min after - varenicline (CHANTIX STARTING MONTH BOX) 0.5 mg (11)- 1 mg (42) tablet Take 1 tablet (0.5 mg) by mouth once daily for 3 days, then 1 tablet (0.5 mg) twice daily for 4 days, then one tablet (1 mg) twice daily. - varenicline (CHANTIX CONTINUING MONTH BOX) 1 mg tablet Take 1 tablet by mouth twice daily. - albuterol HFA (PROVENTIL HFA, VENTOLIN HFA) 90 mcg/actuation inhaler Inhale 2 Puffs as instructed every 6 hours as needed for Wheezing/Shortness of Breath. - benztropine (COGENTIN) 1 mg tablet Take 1 mg by mouth three times daily. - atomoxetine 100 mg capsule Take 100 mg by mouth once daily. - meloxicam (MOBIC) 15 mg tablet Take 1 tablet by mouth once daily. Take this directly following a meal - paliperidone palmitate (INVEGA TRINZA INTRAMUSC.) Inject intramuscularly. - tamsulosin ER (FLOMAX) 0.4 mg cap Take 1 capsule by mouth daily at bedtime. - fluconazole (DIFLUCAN) 200 mg tablet Take 400mg loading dose x1 day, then 200mg daily for 14 days total. 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] 04/01/2010 Pain in Testicle [N50.819] 04/01/2010 Dysphagia [R13.10] 02/23/2014 Hepatitis C [B19.20] 04/01/2014 NO SHOW [[id number]] 08/31/2014 07/12/2017 Asthma with status asthmaticus [J45.902] Eosinophilic esophagitis [K20.0] 08/23/2017 Encounter Status:Closed by RORO ROBISON on 06/01/23 [facility] Telephone (UROLAG) JOSAFAT ALVARENGA ([id number]) 1985 M Date Time Provider Department 06/01/23 THERESA TERRY During your visit today, we recorded the following information about you: Roro Robison 06/01/2023 3:18 PM Signed Patient scheduled for surgery with Dr Terry on 06/26/23 @ [facility] arrive at 9:00am. Patient notified and surgery information mailed. Roro Qureshi Allergies As of Date: 06/01/2023 Noted Allergy Reaction LATEX 10/25/2005 2 - Rash 4 - Hives 9 - Itching 12 - Shortness of Breath Comments: Rash, eyes swell shut, wheezing FLEXERIL (CYCLOBENZAPRINE HCL) 12/17/2014 5 - Intolerance Comments: Mood change, AND swells throat shut Date Reviewed: 06/01/2023 Reviewed by: Juan Daniel Solano Ma - Fully Assessed Reason for Visit: Schedule Surgery [1330] Prescriptions as of 06/01/2023 - cloNIDine HCl (CATAPRES) 0.1 mg tablet Take 0.1 mg by mouth twice daily. - INVEGA SUSTENNA 234 mg/1.5 mL syrg injection once every month. - fluticasone (FLOVENT) 220 mcg/actuation inhaler 2 Puffs twice daily. no spacer, swallow do not inhale, rinse and swallow with water, do not eat for 30 min after - varenicline (CHANTIX STARTING MONTH BOX) 0.5 mg (11)- 1 mg (42) tablet Take 1 tablet (0.5 mg) by mouth once daily for 3 days, then 1 tablet (0.5 mg) twice daily for 4 days, then one tablet (1 mg) twice daily. - varenicline (CHANTIX CONTINUING MONTH BOX) 1 mg tablet Take 1 tablet by mouth twice daily. - albuterol HFA (PROVENTIL HFA, VENTOLIN HFA) 90 mcg/actuation inhaler Inhale 2 Puffs as instructed every 6 hours as needed for Wheezing/Shortness of Breath. - benztropine (COGENTIN) 1 mg tablet Take 1 mg by mouth three times daily. - atomoxetine 100 mg capsule Take 100 mg by mouth once daily. - meloxicam (MOBIC) 15 mg tablet Take 1 tablet by mouth once daily. Take this directly following a meal - paliperidone palmitate (INVEGA TRINZA INTRAMUSC.) Inject intramuscularly. - tamsulosin ER (FLOMAX) 0.4 mg cap Take 1 capsule by mouth daily at bedtime. - fluconazole (DIFLUCAN) 200 mg tablet Take 400mg loading dose x1 day, then 200mg daily for 14 days total. 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] 04/01/2010 Pain in Testicle [N50.819] 04/01/2010 Dysphagia [R13.10] 02/23/2014 Hepatitis C [B19.20] 04/01/2014 NO SHOW [[id number]] 08/31/2014 07/12/2017 Asthma with status asthmaticus [J45.902] Eosinophilic esophagitis [K20.0] 08/23/2017 Encounter Status:Closed by RORO ROBISON on 06/01/23 Normal [facility] No Panel Informationon 04-30 Radiology Result ACTIONABLE Abnormal Shanna veras [facility] 04-27-2023 [facility] Telephone (AKURFL) JOSAFAT ALVARENGA ([id number]) 1985 M Date Time Provider Department 04/27/23 THERESA TERRY During your visit today, we recorded the following information about you: Maria De Jesus Pearcekirk Rodas 04/27/2023 3:10 PM Signed Pt confirmed his appt with Dr. Terry in [place] ofc 06/01/23 @ 2:30. [place] Allergies As of Date: 04/27/2023 Noted Allergy Reaction LATEX 10/25/2005 2 - Rash 4 - Hives 9 - Itching 12 - Shortness of Breath Comments: Rash, eyes swell shut, wheezing FLEXERIL (CYCLOBENZAPRINE HCL) 12/17/2014 5 - Intolerance Comments: Mood change, AND swells throat shut Date Reviewed: 04/27/2023 Reviewed by: Merissa Neal - Fully Assessed Reason for Visit: Appointment [186] Prescriptions as of 04/27/2023 - cloNIDine HCl (CATAPRES) 0.1 mg tablet Take 0.1 mg by mouth twice daily. - INVEGA SUSTENNA 234 mg/1.5 mL syrg injection once every month. - fluticasone (FLOVENT) 220 mcg/actuation inhaler 2 Puffs twice daily. no spacer, swallow do not inhale, rinse and swallow with water, do not eat for 30 min after - varenicline (CHANTIX STARTING MONTH BOX) 0.5 mg (11)- 1 mg (42) tablet Take 1 tablet (0.5 mg) by mouth once daily for 3 days, then 1 tablet (0.5 mg) twice daily for 4 days, then one tablet (1 mg) twice daily. - varenicline (CHANTIX CONTINUING MONTH BOX) 1 mg tablet Take 1 tablet by mouth twice daily. - albuterol HFA (PROVENTIL HFA, VENTOLIN HFA) 90 mcg/actuation inhaler Inhale 2 Puffs as instructed every 6 hours as needed for Wheezing/Shortness of Breath. - benztropine (COGENTIN) 1 mg tablet Take 1 mg by mouth three times daily. - atomoxetine 100 mg capsule Take 100 mg by mouth once daily. - meloxicam (MOBIC) 15 mg tablet Take 1 tablet by mouth once daily. Take this directly following a meal - paliperidone palmitate (INVEGA TRINZA INTRAMUSC.) Inject intramuscularly. - tamsulosin ER (FLOMAX) 0.4 mg cap Take 1 capsule by mouth daily at bedtime. - fluconazole (DIFLUCAN) 200 mg tablet Take 400mg loading dose x1 day, then 200mg daily for 14 days total. 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] 04/01/2010 Pain in Testicle [N50.819] 04/01/2010 Dysphagia [R13.10] 02/23/2014 Hepatitis C [B19.20] 04/01/2014 NO SHOW [[id number]] 08/31/2014 07/12/2017 Asthma with status asthmaticus [J45.902] Eosinophilic esophagitis [K20.0] 08/23/2017 Encounter Status:Closed by MARIA DE JESUS MCKEON on 04/27/23 Normal [facility] UA DIP, URINE (POC)on 2022 BILIRUBIN UA (POCT) Negative Negative [facility] CLARITY UA (POCT) Clear [facility] COLOR UA (POCT) Yellow [facility] GLUCOSE UA (POCT) Negative Negative mg/dL [facility] HEMOGLOBIN/BLOOD UA (POCT) Negative Negative [facility] KETONE UA (POCT) Negative Negative mg/dL [facility] LEUKOC[facility]TES [facility]A (POCT) Negative Negative [facility] NITRITE UA (POCT) Negative Negative [facility] PH UA (POCT) 5.5 4.5 - 8.0 [facility] Protein Ql (U) Negative Negative mg/dL [facility] SPECIFIC GRAVITY UA (POCT) 1.010 1.005 - 1.030 [facility] UROBILINOGEN UA (POCT) 0.2 E.U./dL Normal E.U./dL [facility] CT ABDOMEN/PELVIS WITHOUT CO NTRASTon 04-10-2023 CT ABDOMEN/PELVIS WITHOUT CONTRAST EXAMINATION: CT ABDOMEN/PELVIS WITHOUT CONTRAST, 04/10/2023 8:09 PM EDT HISTORY: Abdominal pain COMPARISON: 03/20/2022 TECHNIQUE: CT scan of the abdomen and pelvis was performed without IV contrast. CT dose reduction technique was used, including Automated Exposure Control. FINDINGS: LOWER CHEST: The visualized lungs are clear. LIVER: Unremarkable. GALLBLADDER AND BILIARY SYSTEM: Unremarkable. SPLEEN: Unremarkable. PANCREAS: Mild to moderate diffuse atrophy of the pancreas. No pancreatic ductal dilatation. ADRENAL GLANDS: Unremarkable. KIDNEYS AND URETERS: No nephrolithiasis or hydronephrosis. No ureteral calculus. BLADDER: Unremarkable. GASTROINTESTINAL TRACT: No evidence of bowel obstruction or colitis. Normal appendix. VASCULATURE: The abdominal aorta is normal in caliber. RETROPERITONEUM: No lymphadenopathy. PERITONEUM/MESENTERY: No abdominal ascites. No free air. PELVIS: No pelvic ascites or lymphadenopathy. BODY WALL: Small fat-containing umbilical hernia. BONES: There is bilateral L5 spondylolysis with minimal anterolisthesis of L5 on S1. IMPRESSION: 1. No acute findings in the abdomen or pelvis. 2. 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 3. Small fat-containing umbilical hernia. Normal [facility] CT Abdomen and Pelvis WO con traston 04-10-2023 IMPRESSION: 1. No acute findings in the abdomen or pelvis. 2. 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 3. Small fat-containing umbilical hernia. RADIOLOGY EXAMINATION: CT ABDOMEN/PELVIS WITHOUT CONTRAST, 04/10/2023 8:09 PM EDT HISTORY: Abdominal pain COMPARISON: 03/20/2022 TECHNIQUE: CT scan of the abdomen and pelvis was performed without IV contrast. CT dose reduction technique was used, including Automated Exposure Control. FINDINGS: LOWER CHEST: The visualized lungs are clear. LIVER: Unremarkable. GALLBLADDER AND BILIARY SYSTEM: Unremarkable. SPLEEN: Unremarkable. PANCREAS: Mild to moderate diffuse atrophy of the pancreas. No pancreatic ductal dilatation. ADRENAL GLANDS: Unremarkable. KIDNEYS AND URETERS: No nephrolithiasis or hydronephrosis. No ureteral calculus. BLADDER: Unremarkable. GASTROINTESTINAL TRACT: No evidence of bowel obstruction or colitis. Normal appendix. VASCULATURE: The abdominal aorta is normal in caliber. RETROPERITONEUM: No lymphadenopathy. PERITONEUM/MESENTERY: No abdominal ascites. No free air. PELVIS: No pelvic ascites or lymphadenopathy. BODY WALL: Small fat-containing umbilical hernia. BONES: There is bilateral L5 spondylolysis with minimal anterolisthesis of L5 on S1. RADIOLOGY Fadi Stevens MD - 04/10/2023 EXAMINATION: CT ABDOMEN/PELVIS WITHOUT CONTRAST, 04/10/2023 8:09 PM EDT HISTORY: Abdominal pain COMPARISON: 03/20/2022 TECHNIQUE: CT scan of the abdomen and pelvis was performed without IV contrast. CT dose reduction technique was used, including Automated Exposure Control. FINDINGS: LOWER CHEST: The visualized lungs are clear. LIVER: Unremarkable. GALLBLADDER AND BILIARY SYSTEM: Unremarkable. SPLEEN: Unremarkable. PANCREAS: Mild to moderate diffuse atrophy of the pancreas. No pancreatic ductal dilatation. ADRENAL GLANDS: Unremarkable. KIDNEYS AND URETERS: No nephrolithiasis or hydronephrosis. No ureteral calculus. BLADDER: Unremarkable. GASTROINTESTINAL TRACT: No evidence of bowel obstruction or colitis. Normal appendix. VASCULATURE: The abdominal aorta is normal in caliber. RETROPERITONEUM: No lymphadenopathy. PERITONEUM/MESENTERY: No abdominal ascites. No free air. PELVIS: No pelvic ascites or lymphadenopathy. BODY WALL: Small fat-containing umbilical hernia. BONES: There is bilateral L5 spondylolysis with minimal anterolisthesis of L5 on S1. IMPRESSION IMPRESSION: 1. No acute findings in the abdomen or pelvis. 2. 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 3. Small fat-containing umbilical hernia. [facility] Radiology Study observation (narrative) [facility] CT Abdomen and Pelvis WO con trastOrdered By: Fadi Stevens on 04-10-2023 [employer] Work Phone: No Panel Informationon 04-10 Interpretation and review of laboratory results Abnormal [facility] URINALYSIS, MACROon 04-10-20 23 Bilirubin Ql (U) Negative NEGATIVE [facility] Clarity (U) CLEAR CLEAR [facility] Color (U) YELLOW YELLOW [facility] [facility] Glucose Test strip (U) [Mass/Vol] Negative NEGATIVE mg/dl [facility] Hemoglobin Ql (U) Negative NEGATIVE [facility] Ketones (U) [Mass/Vol] Negative NEGATIVE mg/dl [facility] Leukocyte esterase Test strip Ql (U) TRACE Abnormal NEGATIVE [facility] Nitrite Ql (U) Negative NEGATIVE [facility] pH (U) 8.5 [pH] High 5.0 - 7.0 [facility] Protein Ql (U) Negative NEGATIVE mg/dl [facility] Specific gravity (U) [Rel density] 1.010 1.010 - 1.025 [facility] Urobilinogen (U) [Mass/Vol] 0.2 mg/dL [facility] URINE CULTUREon 04-10-2023 Bacteria identified Cx Nom (U) SPECIMEN DESCRIPTION URINE - OTHER UA DIPSTICK LEUKOCYTE POSITIVE TRACE * Result Note: NITRITE NEGATIVE * CULTURE NO GROWTH 2 DAYS * Result Note: Testing performed at [place] [address] * REPORT STATUS 04/12/2023 * Result Note: FINAL * Normal [facility] Comment on above: Performed By: #### A URNC #### [place] [address] URINE MACROSCOPICon 04-10-20 23 Bilirubin Ql (U) Negative Normal NEGATIVE [facility] Comment on above: Performed By: #### U CELESTE, UMAC #### [place] [address] Clarity (U) CLEAR Normal CLEAR [facility] Comment on above: Performed By: #### U CELESTE, UMAC #### [place] [address] Color (U) YELLOW Normal YELLOW [facility] Comment on above: Performed By: #### U CELESTE, UMAC #### Testing performed at [place] [id number] Glucose Ql (U) Negative Normal NEGATIVE [facility] Comment on above: Performed By: #### U CELESTE, UMAC #### [place] [address] pH (U) 8.5 [pH] High 5.0-7.0 [facility] Comment on above: Performed By: #### U CELESTE, UMAC #### Testing performed at [place] [id number] URINE HEMOGLOBIN Negative Normal NEGATIVE [facility] Comment on above: Performed By: #### U CELESTE, UMAC #### Testing performed at [address] [address] URINE KETONE Negative Normal NEGATIVE [facility] Comment on above: Performed By: #### U CELESTE, UMAC #### Testing performed at [address] [address] URINE LEUKOTEST TRACE Abnormal NEGATIVE [facility] Comment on above: Performed By: #### U CELESTE, UMAC #### [place] [address] URINE NITRATES Negative Normal NEGATIVE [facility] Comment on above: Performed By: #### U CELESTE, UMAC #### [place] [address] URINE SPEC GRAVITY 1.010 Normal 1.010-1.025 [facility] Comment on above: Performed By: #### U CELESTE, UMAC #### [place] [address] URINE TOTAL PROTEIN Negative Normal NEGATIVE [facility] Comment on above: Performed By: #### U CELESTE, UMAC #### [place] [address] Urobilinogen Qn (U) 0.2 {Eleazar'U}/dL Normal 0.2-1.0 [facility] Comment on above: Performed By: #### U CELESTE, UMAC #### [place] [address] URINE MICROSCOPICon 04-10-20 23 BACTERIA TRACE Abnormal NEGATIVE [facility] Comment on above: Performed By: #### U CELESTE, UMAC #### [place] [address] CASTS NONE Normal NONE [facility] Comment on above: Performed By: #### U CELESTE, UMAC #### [place] [address] CRYSTAL NONE Normal NONE [facility] Comment on above: Performed By: #### U CELESTE, UMAC #### Testing performed at [place] [id number] Epithelial cells LM Ql (Urine sed) 1 TO 5 Normal [facility] Comment on above: Performed By: #### U CELESTE, UMAC #### [place] [address] Mucus Ql (Urine sed) Negative Normal NEGATIVE [facility] Comment on above: Performed By: #### U CELESTE, UMAC #### [place] [address] URINE COMMENT REFLEX CULTURE PER ESTABLISHED CRITERIA. [facility] Comment on above: Performed By: #### U CELESTE, UMAC #### [place] [address] URINE RBC'S Negative Normal NEGATIVE [facility] Comment on above: Performed By: #### U CELESTE, UMAC #### [place] [address] URINE WBC'S 1 TO 5 Normal NEGATIVE [facility] Comment on above: Performed By: #### U CELESTE, UMAC #### [place] [address] Bacteria LM.HPF (Urine sed) [#/Area] TRACE Abnormal NEGATIVE [facility] Casts LM.LPF (Urine sed) [#/Area] NONE NONE /LPF [facility] Crystals LM Nom (Urine sed) NONE NONE [facility] Epithelial cells LM Ql (Urine sed) 1 TO 5 /HPF [facility] Mucus Ql (Urine sed) Negative NEGATIVE [facility] RBC LM.HPF (Urine sed) [#/Area] Negative NEGATIVE /HPF [facility] Urine sediment comments LM Nakul (Urine sed) REFLEX CULTURE PER ESTABLISHED CRITERIA. [facility] WBC LM.HPF (Urine sed) [#/Area] 1 TO 5 NEGATIVE /HPF [facility] NOVEL CORONAVIRUSon 10-20-20 22 NARRATIVE This test was perfor med using isothermal TRACY and has been approved as Emergency Use Authorization (EUA) for the qualitative detection [id number] nucleic acid. [facility] Comment on above: Result Comment: Test ing performed at [facility], [place], [place] [address] Performed By: #### C OVID #### Testing performed at [place] [id number] SARS-CoV-2 (COVID-19) RNA TRACY+probe Ql (Unsp spec) Not detected Normal NOT DETECTED [facility] Comment on above: Result Comment: Nega tive results do not preclude SARS-CoV-2 infection and should not be used as the sole basis for treatment or other patient management decisions. Optimum specimen types and timing for peak viral levels during infections caused by SARS-CoV-2 has not been determined. The possibility of a false negative result should especially be considered if the patient's recent exposures or clinical presentation suggest that SARS-CoV-2 infection is probable, and diagnostic tests for other causes of illness (e.g., other respiratory illness) are negative. Collection of a new specimen and re-testing may be necessary if the patient is critically ill or clinically deteriorating. Performed By: #### C OVID #### [place] [address] RAPID FLU Aon 10-20-2022 INFLUENZA A Positive Abnormal NEGATIVE [facility] Comment on above: Performed By: #### R FLUAB #### [place] [address] INFLUENZA B Negative Normal NEGATIVE [facility] Comment on above: Result Comment: TEST ING PERFORMED BY TRACY Testing performed at [place] [address] Performed By: #### R FLUAB #### [place] [address] XR CHEST AP PORTABLEon 10-20 XR CHEST AP PORTABLE EXAMINATION: XR FABIOLA ST AP PORTABLE, 10/20/2022 2:10 PM EST HISTORY: cough wheezing COMPARISON: None. TECHNIQUE: Chest x-ray: One view. FINDINGS: Lungs are clear. The cardiomediastinal configuration is within normal limits. No acute bony abnormalities. IMPRESSION: No acute cardiopulmonary abnormalities. Normal [facility] MR Brain and Pituitary and S anita pandeyca WO and W contrast Jennifer 04-06-2022 IMPRESSION: Equivocal pituitary microadenoma measuring 3 x 4 mm. Follow up study in 6 months is recommended. RADIOLOGY EXAM: MRI PITUITARY WITH AND WITHOUT CONTRAST HISTORY: Elevated prolactin. COMPARISON: None. TECHNIQUE: Multiplanar, multisequence imaging of the brain with and without contrast. FINDINGS: No acute ischemia. No acute intracranial hemorrhage. Midline structures and the craniocervical junction is within limits of normal. The ventricles and sulci are of normal size, shape, and position. No significant brain parenchymal abnormality. No evidence of abnormal intraparenchymal enhancement. Suspected area of decreased enhancement within the right aspect of the pituitary measuring 3 x 4 mm could represent a pituitary microadenoma. RADIOLOGY Christa Mcdowell, DO - 04/06/2022 EXAM: MRI PITUITARY WITH AND WITHOUT CONTRAST HISTORY: Elevated prolactin. COMPARISON: None. TECHNIQUE: Multiplanar, multisequence imaging of the brain with and without contrast. FINDINGS: No acute ischemia. No acute intracranial hemorrhage. Midline structures and the craniocervical junction is within limits of normal. The ventricles and sulci are of normal size, shape, and position. No significant brain parenchymal abnormality. No evidence of abnormal intraparenchymal enhancement. Suspected area of decreased enhancement within the right aspect of the pituitary measuring 3 x 4 mm could represent a pituitary microadenoma. IMPRESSION IMPRESSION: Equivocal pituitary microadenoma measuring 3 x 4 mm. Follow up study in 6 months is recommended. [facility] Radiology Study observation (narrative) [facility] MR Brain and Pituitary and S anita palmer WO and W contrast IVOrdered By: Christa Mcdowell on 04-06-2022 [facility] Work Phone: MRI PITUITARY WITH AND WITHO UT CONTRASTon 04-06-2022 MRI PITUITARY WITH AND WITHOUT CONTRAST EXAM: MRI PITUITARY WITH AND WITHOUT CONTRAST HISTORY: Elevated prolactin. COMPARISON: None. TECHNIQUE: Multiplanar, multisequence imaging of the brain with and without contrast. FINDINGS: No acute ischemia. No acute intracranial hemorrhage. Midline structures and the craniocervical junction is within limits of normal. The ventricles and sulci are of normal size, shape, and position. No significant brain parenchymal abnormality. No evidence of abnormal intraparenchymal enhancement. Suspected area of decreased enhancement within the right aspect of the pituitary measuring 3 x 4 mm could represent a pituitary microadenoma. IMPRESSION: Equivocal pituitary microadenoma measuring 3 x 4 mm. Follow up study in 6 months is recommended. Normal [facility] POCT URINALYSIS DIPSTICK AUT OMATED W/O SCOPon 03-29-2022 Amorphous sediment LM Ql (Urine sed) [facility] Appearance (U) CLEAR [facility] Bacteria LM Ql (Urine sed) [facility] Bilirubin Ql (U) Negative [facility] Casts LM.LPF (Urine sed) [#/Area] [facility] Color (U) YELLOW [facility] Crystals LM Nom (Urine sed) [facility] Epithelial cells.squamous LM.HPF (Urine sed) [#/Area] [facility] Flow cytometry specialist review Nakul (Unsp spec) [Interp] [facility] Glucose Auto test strip (U) [Mass/Vol] Negative mg/dL [facility] Interpretation and review of laboratory results Abnormal [facility] Ketones [Mass/Vol] Negative mg/dL [facility] Leukocyte esterase Qn (U) [facility] Leukocyte esterase Test strip Ql (U) Negative [facility] Nitrite Ql (U) Negative [facility] pH (U) 7.5 [pH] Abnormal [facility] Protein Ql (U) Negative mg/dL [facility] RBC LM.HPF (Urine sed) [#/Area] [facility] RBC Ql (U) TRACE-INTACT [facility] Specific gravity (U) [Rel density] 1.015 [facility] Transitional cells LM Ql (Urine sed) [facility] Urobilinogen Qn (U) 1.0 [facility] WBC LM.HPF (Urine sed) [#/Area] [facility] CT ABDOMEN/PELVIS WITHOUT CO NTRASTon 03-22-2022 CT ABDOMEN/PELVIS WITHOUT CONTRAST EXAMINATION: CT ABDOMEN/PELVIS WITHOUT CONTRAST, 03/20/2022 3:06 PM EDT HISTORY: History of kidney stones. Urinary frequency. Weak stream. Flank pain. COMPARISON: Ultrasound kidneys 03/03/2022. TECHNIQUE: CT scan of the abdomen and pelvis was performed without IV contrast. CT dose reduction technique was used, including Automated Exposure Control. FINDINGS: The heart is normal in size. The imaged lung bases are clear. The noncontrast liver, spleen and pancreas appear normal. There are no calcified gallstones. There is no adrenal mass. Renal cortical thickness is normal bilaterally. There are no calcified urinary tract stones. There is no hydronephrosis or hydroureter. There is no perinephric inflammation. The urinary bladder is incompletely distended and unremarkable. The prostate is normal in size. The stomach is slightly distended with fluid and debris. There is no abnormal small bowel or colonic dilatation. The colonic stool burden is moderate. The appendix is normal. There is no pneumoperitoneum or ascites. The abdominal aorta is nondilated. There is no acute osseous pathology. IMPRESSION: 1. No nephrolithiasis or obstructive uropathy. Unremarkable urinary bladder. 2. No calcified gallstones. 3. No bowel obstruction or localized inflammation seen. Normal-appearing appendix. Normal [facility] PROLACTINon 03-09-2022 PROLACTIN 59.6 High [facility] Comment on above: Result Comment: Refe rence range: 4.0 to 15.2 Unit: ng[facility] Performed By: #### L PROL #### Testing performed at [facility] [address] [place] [address] [place] [address] POCT URINALYSIS DIPSTICK AUT OMATED W/O SCOPon 03-07-2022 Amorphous sediment LM Ql (Urine sed) [facility] Appearance (U) clear [facility] Bacteria LM Ql (Urine sed) [facility] Bilirubin Ql (U) Negative [facility] Casts LM.LPF (Urine sed) [#/Area] [facility] Color (U) yellow [facility] Crystals LM Nom (Urine sed) [facility] Epithelial cells.squamous LM.HPF (Urine sed) [#/Area] [facility] Flow cytometry specialist review Nakul (Unsp spec) [Interp] [facility] Glucose Auto test strip (U) [Mass/Vol] Negative mg/dL [facility] Ketones [Mass/Vol] Negative mg/dL [facility] Leukocyte esterase Qn (U) [facility] Leukocyte esterase Test strip Ql (U) TRACE [facility] Nitrite Ql (U) Negative [facility] pH (U) 6.5 [pH] [facility] Protein Ql (U) Negative mg/dL [facility] RBC LM.HPF (Urine sed) [#/Area] [facility] RBC Ql (U) Negative [facility] Specific gravity (U) [Rel density] 1.010 [facility] Transitional cells LM Ql (Urine sed) [facility] Urobilinogen Qn (U) 0.2 [facility] WBC LM.HPF (Urine sed) [#/Area] [facility] US Kidneyon 03-03-2022 IMPRESSION: 1. Suboptimal visualization of the kidneys due to shadowing from bowel gas and ribs. 2. Normal size kidneys without hydronephrosis. There is a probable 6-7 mm nonobstructing stone in the right kidney. 3. Nondistended bladder that is not well evaluated, but bilateral ureteral jets are seen within bladder lumen. RADIOLOGY Ultrasound kidneys, bilateral HISTORY: microhematuria COMPARISON: None. TECHNIQUE: Transabdominal ultrasound imaging of both kidneys was performed. FINDINGS: Examination is limited due to shadowing from ribs and bowel gas. Both kidneys demonstrate normal echotexture and echogenicity. The right kidney measures 10.9 x 5.1 x 5.4 cm. There is a hyperechoic structure at the lower pole measuring 6 x 7 x 6 mm that is probably a nonobstructing stone. There is no hydronephrosis of right kidney. The left kidney measures 11.4 x 5.9 x 5.2 cm. No hydronephrosis of left kidney. No discrete left renal lesion. The bladder is nondistended and not optimally evaluated. Bilateral ureteral jets are seen within bladder lumen. Prevoid bladder volume is 122 mL. RADIOLOGY Izabela Tilley MD - 03/03/2022 Ultrasound kidneys, bilateral HISTORY: microhematuria COMPARISON: None. TECHNIQUE: Transabdominal ultrasound imaging of both kidneys was performed. FINDINGS: Examination is limited due to shadowing from ribs and bowel gas. Both kidneys demonstrate normal echotexture and echogenicity. The right kidney measures 10.9 x 5.1 x 5.4 cm. There is a hyperechoic structure at the lower pole measuring 6 x 7 x 6 mm that is probably a nonobstructing stone. There is no hydronephrosis of right kidney. The left kidney measures 11.4 x 5.9 x 5.2 cm. No hydronephrosis of left kidney. No discrete left renal lesion. The bladder is nondistended and not optimally evaluated. Bilateral ureteral jets are seen within bladder lumen. Prevoid bladder volume is 122 mL. IMPRESSION IMPRESSION: 1. Suboptimal visualization of the kidneys due to shadowing from bowel gas and ribs. 2. Normal size kidneys without hydronephrosis. There is a probable 6-7 mm nonobstructing stone in the right kidney. 3. Nondistended bladder that is not well evaluated, but bilateral ureteral jets are seen within bladder lumen. [facility] Radiology Study observation (narrative) [facility] US KidneyOrdered By: Izabela Tilley on 03-03-2022 [facility] Work Phone: US RENAL RETROPERITONEALon 0 03-03-2022 US RENAL RETROPERITONEAL Ultrasound kidneys, bilateral HISTORY: microhematuria COMPARISON: None. TECHNIQUE: Transabdominal ultrasound imaging of both kidneys was performed. FINDINGS: Examination is limited due to shadowing from ribs and bowel gas. Both kidneys demonstrate normal echotexture and echogenicity. The right kidney measures 10.9 x 5.1 x 5.4 cm. There is a hyperechoic structure at the lower pole measuring 6 x 7 x 6 mm that is probably a nonobstructing stone. There is no hydronephrosis of right kidney. The left kidney measures 11.4 x 5.9 x 5.2 cm. No hydronephrosis of left kidney. No discrete left renal lesion. The bladder is nondistended and not optimally evaluated. Bilateral ureteral jets are seen within bladder lumen. Prevoid bladder volume is 122 mL. IMPRESSION: 1. Suboptimal visualization of the kidneys due to shadowing from bowel gas and ribs. 2. Normal size kidneys without hydronephrosis. There is a probable 6-7 mm nonobstructing stone in the right kidney. 3. Nondistended bladder that is not well evaluated, but bilateral ureteral jets are seen within bladder lumen. Normal [facility] FSHon 02-23-2022 FSH 2.0 Normal [facility] Comment on above: Result Comment: Refe rence range: 1.5 to 12.4 Unit: mIU/mL PERFORMED AT [facility] Performed By: #### L LH, LFSH, LPROL #### Testing performed at [facility] [address] [place] [address] [place] [address] #### HH, UNKSO #### Testing performed at [address] [address] LUTEINIZING HORMONEon 2021 LH 5.5 Normal [facility] Comment on above: Result Comment: Refe rence range: 1.7 to 8.6 Unit: mIU/mL PERFORMED AT [facility] Performed By: #### L LH, LFSH, LPROL #### Testing performed at [address] [place] [address] #### HH, UNKSO #### Testing performed at [address] [address] PROLACTINon 02-23-2022 PROLACTIN 64.4 High [facility] Comment on above: Result Comment: Refe rence range: 4.0 to 15.2 Unit: ng/mL PERFORMED AT [facility] Performed By: #### L LH, LFSH, LPROL #### Testing performed at [address] [place] [address] #### HH, UNKSO #### Testing performed at [address] [address] HGB/HCTon 02-22-2022 Hematocrit (Bld) [Volume fraction] 49.6 % Normal 42.0-52.0 [facility] Comment on above: Performed By: #### L LH, LFSH, LPROL #### Testing performed at [address] [address] #### HH, UNKSO #### Testing performed at [address] [address] Hemoglobin (Bld) [Mass/Vol] 17.9 g/dL Normal 14.0-18.0 [facility] Comment on above: Performed By: #### L LH, LFSH, LPROL #### Testing performed at [address] [address] #### HH, UNKSO #### Testing performed at [address] [address] SENDOUT TESTon 02-22-2022 SENDOUT TEST TESTOSTERONE [id number] Normal [facility] Comment on above: Performed By: #### L LH, LFSH, LPROL #### Testing performed at [facility] [address] [place] [address] [place] [address] #### HH, UNKSO #### Testing performed at [facility] [address] [place] [address] POCT URINALYSIS DIPSTICK AUT OMATED W/O SCOPon 02-21-2022 Amorphous sediment LM Ql (Urine sed) [facility] Appearance (U) clear [facility] Bacteria LM Ql (Urine sed) [facility] Bilirubin Ql (U) SMALL [facility] Casts LM.LPF (Urine sed) [#/Area] [facility] Color (U) dark yellow [facility] Crystals LM Nom (Urine sed) [facility] Epithelial cells.squamous LM.HPF (Urine sed) [#/Area] [facility] Flow cytometry specialist review Nakul (Unsp spec) [Interp] [facility] Glucose Auto test strip (U) [Mass/Vol] Negative mg/dL [facility] Ketones [Mass/Vol] TRACE mg/dL [facility] Leukocyte esterase Qn (U) [facility] Leukocyte esterase Test strip Ql (U) TRACE [facility] Nitrite Ql (U) Negative [facility] pH (U) 6.0 [pH] [facility] Protein Ql (U) 30 mg/dL [facility] RBC LM.HPF (Urine sed) [#/Area] [facility] RBC Ql (U) TRACE-INACT [facility] Specific gravity (U) [Rel density] 1.015 [facility] Transitional cells LM Ql (Urine sed) [facility] Urobilinogen Qn (U) 0.2 [facility] WBC LM.HPF (Urine sed) [#/Area] [facility] URINALYSIS, MACROon 07-16-20 19 Bilirubin Ql (U) Negative NEGATIVE [facility] Clarity (U) CLEAR CLEAR [facility] Color (U) LIGHT YELLOW Abnormal YELLOW [facility] Glucose Test strip (U) [Mass/Vol] Negative NEGATIVE mg/dl [facility] Hemoglobin Ql (U) Negative NEGATIVE [facility] Interpretation and review of laboratory results Abnormal [facility] Ketones (U) [Mass/Vol] Negative NEGATIVE mg/dl [facility] Leukocyte esterase Test strip Ql (U) Negative NEGATIVE [employer] Comment on above: Testing performed at [facility], [place], [place] [address] Nitrite Ql (U) Negative NEGATIVE [employer] pH (U) 5.5 [pH] [facility] Protein Ql (U) Negative NEGATIVE mg/dl [employer] Specific gravity (U) [Rel density] 1.015 [employer] [facility] [employer] Urobilinogen (U) [Mass/Vol] 0.2 [employer] Microbiology: Culture, Deep Woundon 10-05-2017 CUDW . Invalid Interpretation Code [facility] Work Phone: [phone] Microbiology: (P) Culture, D eep Woundon 10-03-2017 CUDW . Invalid Interpretation Code [facility] Work Phone: [phone] Microbiology: (P) Culture, D eep Woundon 10-01-2017 CUDW . Invalid Interpretation Code [facility] Work Phone: [phone] Microbiology: (P) Culture, D eep Woundon 09-29-2017 CUDW . Invalid Interpretation Code [facility] Work Phone: [phone] Lab Report: CBC W/Diff, Auto matedon 09-28-2017 Absolute Neut 3.7 X10 3/UL Invalid Interpretation Code 2.0-7.7 [facility] Work Phone: [phone] Basophils/100 WBC Auto (Bld) 1.0 % Invalid Interpretation Code 0-1 [facility] Work Phone: [phone] Eosinophils/100 leukocytes 11.7 % High 0-5 [facility] Work Phone: [phone] Erythrocyte distribution width Auto Ratio (RBC) 12.8 % Invalid Interpretation Code 11.6-14.6 [facility] Work Phone: [phone] Erythrocytes (RBC) 3.85 10*6/uL Low 4.6-6.[address] [facility] Work Phone: [phone] Hematocrit (HCT) 35.8 % Low 40-54 [facility] Work Phone: [phone] Hemoglobin mass conc (Bld) 12.3 g/dL Low 13.0-16.5 [facility] Work Phone: [phone] Immature granulocytes/100 WBC (Bld) 0.800 % Invalid Interpretation Code 0.0-0.9 [facility] Work Phone: [phone] Lymphocytes 1.98 X10 3/UL Invalid Interpretation Code 0.83-4.51 [facility] Work Phone: [phone] Lymphocytes/100 leukocytes 27.2 % Invalid Interpretation Code 19-41 [facility] Work Phone: [phone] MCH 31.9 pg Invalid Interpretation Code 27.0-32.0 [facility] Work Phone: [phone] MCHC mass conc (RBC) 34.4 G/GL Invalid Interpretation Code 32-36 [facility] Work Phone: [phone] MCV 93.0 fL Invalid Interpretation Code 80-94 [facility] Work Phone: [phone] Monocytes/100 leukocytes 9.1 % Invalid Interpretation Code 0-10 [facility] Work Phone: [phone] Neutrophils/100 WBC Auto (Bld) 50.2 % Invalid Interpretation Code 47-70 [facility] Work Phone: [phone] Platelets 264 10*3/mm3 Invalid Interpretation Code 150-450 [facility] Work Phone: [phone] PMV by Caitlin 9.3 fL Invalid Interpretation Code 6.2-12.0 [facility] Work Phone: [phone] RDW SD 42.5 fL Invalid Interpretation Code 35.1-43.9 [facility] Work Phone: [phone] WBC (Leukocytes) 7.3 10*3/uL Invalid Interpretation Code 4.4-11.0 [facility] Work Phone: [phone] Microbiology: (P) Culture, D eep Woundon 09-28-2017 CUDW . Invalid Interpretation Code [facility] Work Phone: [phone] Lab Report: Basic Metabolic Profile (BMP)on 09-27-2017 Anion gap 5 mmol/L Invalid Interpretation Code 5-15 [facility] Work Phone: [phone] BUN/Creatinine Ratio 7.1 RATIO Low 10-20 [facility] Work Phone: [phone] Calcium 8.5 mg/dL Invalid Interpretation Code 8.5-10.1 [facility] Work Phone: [phone] Chloride 108 mmol/L High 98-107 [facility] Work Phone: [phone] CO2 28.0 mmol/L Invalid Interpretation Code 21.0-32.0 [facility] Work Phone: [phone] Creatinine 0.71 mg/dL Invalid Interpretation Code 0.70-1.30 [facility] Work Phone: [phone] Creatinine 126.13 mL/min Invalid Interpretation Code [facility] Work Phone: [phone] eGFR (non-black) 164 mL/min/{1.73_m2} Invalid Interpretation Code >60 [facility] Work Phone: [phone] eGFR (non-black) 135 mL/min/{1.73_m2} Invalid Interpretation Code >60 [facility] Work Phone: [phone] Glucose mass conc 89 mg/dL Invalid Interpretation Code 70-110 [facility] Work Phone: [phone] Potassium molar conc 3.7 mmol/L Invalid Interpretation Code 3.5-5.1 [facility] Work Phone: [phone] Sodium 141 mmol/L Invalid Interpretation Code 136-145 [facility] Work Phone: [phone] Urea nitrogen 5 mg/dL Low 7-18 [facility] Work Phone: [phone] Lab Report: CBC-Complete Blo od Cnt No Diffon 09-27-2017 Erythrocyte distribution width Auto Ratio (RBC) 13.1 % Invalid Interpretation Code 11.6-14.6 [facility] Work Phone: [phone] Erythrocytes (RBC) 4.11 10*6/uL Low 4.6-6.[address] [facility] Work Phone: [phone] Hematocrit (HCT) 39.2 % Low 40-54 [facility] Work Phone: [phone] Hemoglobin mass conc (Bld) 13.2 g/dL Invalid Interpretation Code 13.0-16.5 [facility] Work Phone: [phone] MCH 32.1 pg High 27.0-32.0 [facility] Work Phone: [phone] MCHC mass conc (RBC) 33.7 G/GL Invalid Interpretation Code 32-36 [facility] Work Phone: [phone] MCV 95.4 fL High 80-94 [facility] Work Phone: [phone] Platelets 211 10*3/mm3 Invalid Interpretation Code 150-450 [facility] Work Phone: [phone] PMV by Caitlin 9.3 fL Invalid Interpretation Code 6.2-12.0 [facility] Work Phone: [phone] RDW SD 45.4 fL High 35.1-43.9 [facility] Work Phone: [phone] WBC (Leukocytes) 9.7 10*3/uL Invalid Interpretation Code 4.4-11.0 [facility] Work Phone: [phone] Lab Report: Prealbuminon Prealbumin 10.6 mg/dL Low 20.0-40.0 [facility] Work Phone: [phone] Microbiology: (P) Culture, D eep Woundon 09-27-2017 CUDW Wound CultureNo growth-Final to follow Invalid Interpretation Code [facility] Work Phone: [phone] Lab Report: Liver Profileon 09-26-2017 Alanine aminotransferase (ALT) 53 U/L Invalid Interpretation Code 12-78 [facility] Work Phone: [phone] Albumin 2.7 g/dL Low 3.4-5.0 [facility] Work Phone: [phone] Alkaline phosphatase (ALP) 83 U/L Invalid Interpretation Code 45-117 [facility] Work Phone: [phone] Aspartate aminotransferase (AST) 35 U/L Invalid Interpretation Code 15-37 [facility] Work Phone: [phone] Bilirubin (direct) 0.19 mg/dL Invalid Interpretation Code 0.00-0.30 [facility] Work Phone: [phone] Bilirubin (total) 1.00 mg/dL Invalid Interpretation Code 0.20-1.00 [facility] Work Phone: [phone] Globulin 4.1 g/dL Invalid Interpretation Code 2.2-4.2 [facility] Work Phone: Protein 6.8 g/dL Invalid Interpretation Code 6.4-8.2 [facility] Work Phone: Lab Report: MRSA Wound DNA b y PCRon 09-26-2017 INR Coag RelTime (Bld) Negative Invalid Interpretation Code Negative [facility] Work Phone: Surgical Pathologyon 017 Surgical Pathology [phone] [facility] PATHOLOGY AND LABORATORY MEDICINE [address] [place] [id number] FINAL SURGICAL PATHOLOGY REPORT NAME: JOSAFAT ALVARENGA .O.B.: 1985 32 Y M BILLING NO.: [id number]: [id number] PROCEDURE 09/18/2017 DATE:SURGEON: MARCI BUTLER MD RECEIVED 09/18/2017 DATE:ATTENDING: NELLY CAGLE MD REPORT DATE: 09/21/2017 COPIES TO: DIAGNOSIS:ESOPHAG US, BIOPSIES - FRAGMENT OF SQUAMOUS MUCOSA WITH MARKEDLYINCREASED EOSINOPHILS AND REACTIVE CHANGES. 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 Clinical correlation is required.YRNT/SETH CRAWLEY M.D. CLINICAL INFORMATION: Acute dysphagia, removal of foreign body inesophagusSPECIMEN: ESOPHAGUS BIOPSY GROSS DESCRIPTION:Esophageal biopsiesReceived in formalin are fragments of tong tissue which aggregate to0.3 x 0.3 cm. The specimen is entirely submitted in a single cassette. (bits ns, 1) JCK/STUARTDisclaimer: The following statement applies to allimmunohistochemistry , in situ hybridization, molecular studies, andimmunofluorescence testing.The use of one or more reagents in the above tests is regulated as ananalyte specific reagent (ASR). These tests were developed and theirperformance characteristics determined by the clinical laboratories [facility]. They have not been cleared by the US Food and DrugAdministration (FDA). The FDA has determined that such clearance orapproval is not necessary.All the above immunostains were performed on paraffin embedded tissue.Appropriate positive and negative controls (where applicable) were runin parallel with the patient's specimen; these controls showed expectedstaining pattern, with acceptable intensity of staining.Immunohistoche mical assays have not been validated on decalcifiedtissues. Results should be interpreted with caution given the raisedpossibility of false negativity on decalcified specimens.Professional Performing Location: [address] [address]. DEPARTMENT OF PATHOLOGY AND LABORATORY MEDICINE [place], [place] [address] Normal [facility] Comment on above: Performed By: #### S UR ####Performing Lab is in report Vital Signs Date Time Vital Sign Value Performing Clinician Facility 02-22-2025 07:08-0400 Diastolic Blood Pressure Non-Invasive 69 mm[Hg] JERAMIE BRUNER MD [facility] 02-22-2025 07:08-0400 Heart rate 85 /min JERAMIE BRUNER MD [facility] 02-22-2025 07:08-0400 Respiratory rate 14 /min JERAMIE BRUNER MD [facility] 02-22-2025 07:08-0400 Systolic Blood Pressure Non-Invasive 106 mm[Hg] JERAMIE BRUNER MD [address] [place] [address] 02-22-2025 04:08-0400 Diastolic Blood Pressure Non-Invasive 76 mm[Hg] JERAMIE BRUNER MD [address] [place] [address] 02-22-2025 04:08-0400 Heart rate 74 /min JERAMIE BRUNER MD [address] [place] [address] 02-22-2025 04:08-0400 Respiratory rate 15 /min JERAMIE BRUNER MD [address] [place] [address] 02-22-2025 04:08-0400 Systolic Blood Pressure Non-Invasive 122 mm[Hg] JERAMIE BRUNER MD [address] [place] [address] 02-22-2025 02:10-0400 Diastolic Blood Pressure Non-Invasive 85 mm[Hg] JERAMIE BRUNER MD [address] [place] [address] 02-22-2025 02:10-0400 Heart rate 78 /min JERAMIE BRUNER MD [address] [place] [address] 02-22-2025 02:10-0400 Respiratory rate 18 /min JERAMIE BRUNER MD [address] [place] [address] 02-22-2025 02:10-0400 Systolic Blood Pressure Non-Invasive 133 mm[Hg] JERAMIE BRUNER MD [address] [place] [address] 02-21-2025 23:49-0400 Body temperature 97.34 [degF] JERAMIE BRUNER MD [address] [place] [address] 02-21-2025 23:49-0400 Body weight 79.1 kg JERAMIE BRUNER MD [address] [place] [address] 01-27-2025 16:18-0400 Body height 170.2 cm Fauzia Sorenson PA-C Work Phone: [facility] 01-27-2025 16:18-0400 Body mass index (BMI) [Ratio] 26.63 kg/m2 Fauzia Sorenson PA-C Work Phone: [facility] 01-27-2025 16:18-0400 Body temperature 98.29 [degF] Fauzia Sorenson PA-C Work Phone: [facility] 01-27-2025 16:18-0400 Body weight 77.11 kg Fauzia Sorenson PA-C Work Phone: [facility] 01-27-2025 16:18-0400 Diastolic blood pressure 74 mm[Hg] Fauzia Sorenson PA-C Work Phone: [facility] 01-27-2025 16:18-0400 Heart rate 112 /min Fauzia Sorenson PA-C Work Phone: [facility] 01-27-2025 16:18-0400 Respiratory rate 14 /min Fauzia Sorenson PA-C Work Phone: [facility] 01-27-2025 16:18-0400 SaO2% (BldA) [Mass fraction] 99 % Fauzia Sorenson PA-C Work Phone: [facility] 01-27-2025 16:18-0400 Systolic blood pressure 118 mm[Hg] Fauzia Sorenson PA-C Work Phone: [facility] 11-25-2024 11:36-0500 Blood Pressure Location FROYLAN HANSON MD [facility] 11-25-2024 11:36-0500 Blood Pressure Method FROYLAN HANSON MD [facility] 11-25-2024 11:36-0500 Body temperature 97.88 [degF] FROYLAN HANSON MD [facility] 11-25-2024 11:36-0500 Body weight 72.7 kg FROYLAN HANSON MD [facility] 11-25-2024 11:36-0500 Diastolic Blood Pressure Non-Invasive 87 mm[Hg] FROYLAN HANSON MD [facility] 11-25-2024 11:36-0500 Heart rate 96 /min FROYLAN HANSON MD [facility] 11-25-2024 11:36-0500 Respiratory rate 18 /min FROYLAN HANSON MD [facility] 11-25-2024 11:36-0500 Systolic Blood Pressure Non-Invasive 127 mm[Hg] FROYLAN HANSON MD [facility] 10-28-2024 15:31-0500 Body mass index (BMI) [Ratio] 25.37 kg/m2 Fauzia Sorenson PA-C Work Phone: [facility] 10-28-2024 15:31-0500 Body weight 73.48 kg Fauzia Sorenson PA-C Work Phone: [facility] 10-28-2024 15:31-0500 Diastolic blood pressure 85 mm[Hg] Fauzia Sorenson PA-C Work Phone: [facility] 10-28-2024 15:31-0500 Heart rate 81 /min Fauzia Sorenson PA-C Work Phone: [facility] 10-28-2024 15:31-0500 SaO2% (BldA) [Mass fraction] 97 % Fauzia Sorenson PA-C Work Phone: [facility] 10-28-2024 15:31-0500 Systolic blood pressure 124 mm[Hg] Fauzia Sorenson PA-C Work Phone: [facility] 08-28-2024 16:52-0400 Body mass index (BMI) [Ratio] 26.41 kg/m2 Comfort Rincon COLLISION TECHNICIAN.DIRECTOR OF HOTEL OPERATIONS Work Phone: [facility] 08-28-2024 16:52-0400 Body temperature 96.21 [degF] Comfort Rincon COLLISION TECHNICIAN.DIRECTOR OF HOTEL OPERATIONS Work Phone: [facility] 08-28-2024 16:52-0400 Body weight 76.5 kg Comfort Rincon COLLISION TECHNICIAN.DIRECTOR OF HOTEL OPERATIONS Work Phone: [facility] 08-28-2024 16:52-0400 Diastolic blood pressure 100 mm[Hg] Comfort Rincon COLLISION TECHNICIAN.DIRECTOR OF HOTEL OPERATIONS Work Phone: [facility] 08-28-2024 16:52-0400 Heart rate 89 /min Comfort Rincon COLLISION TECHNICIAN.DIRECTOR OF HOTEL OPERATIONS Work Phone: [facility] 08-28-2024 16:52-0400 Respiratory rate 24 /min Comfort Rincon COLLISION TECHNICIAN.DIRECTOR OF HOTEL OPERATIONS Work Phone: [facility] 08-28-2024 16:52-0400 SaO2% (BldA) [Mass fraction] 100 % Comfort Rincon COLLISION TECHNICIAN.DIRECTOR OF HOTEL OPERATIONS Work Phone: [facility] 08-28-2024 16:52-0400 Systolic blood pressure 140 mm[Hg] Comfort Rincon COLLISION TECHNICIAN.DIRECTOR OF HOTEL OPERATIONS Work Phone: [facility] 07-29-2024 14:44-0400 Body height 170.2 cm Fauzia Sorenson PA-C Work Phone: [facility] 07-29-2024 14:44-0400 Body mass index (BMI) [Ratio] 26.78 kg/m2 Fauzia Sorenson PA-C Work Phone: [facility] 07-29-2024 14:44-0400 Body temperature 98.29 [degF] Fauzia Sorenson PA-C Work Phone: [facility] 07-29-2024 14:44-0400 Body weight 77.56 kg Fauzia Sorenson PA-C Work Phone: [facility] 07-29-2024 14:44-0400 Diastolic blood pressure 82 mm[Hg] Fauzia Sorenson PA-C Work Phone: [facility] 07-29-2024 14:44-0400 Heart rate 98 /min Fauzia Sorenson PA-C Work Phone: [facility] 07-29-2024 14:44-0400 Respiratory rate 16 /min Fauzia Sorenson PA-C Work Phone: [facility] 07-29-2024 14:44-0400 SaO2% (BldA) [Mass fraction] 95 % Fauzia Sorenson PA-C Work Phone: [facility] 07-29-2024 14:44-0400 Systolic blood pressure 122 mm[Hg] Fauzia Sorenson PA-C Work Phone: [facility] 07-15-2024 13:48-0400 Body height 170.2 cm Fauzia Sorenson PA-C Work Phone: [facility] 07-15-2024 13:48-0400 Body mass index (BMI) [Ratio] 26.94 kg/m2 Fauzia Sorenson PA-C Work Phone: [facility] 07-15-2024 13:48-0400 Body temperature 97.59 [degF] Fauzia Sorenson PA-C Work Phone: [facility] 07-15-2024 13:48-0400 Body weight 78.02 kg Fauzia Sorenson PA-C Work Phone: [facility] 07-15-2024 13:48-0400 Diastolic blood pressure 84 mm[Hg] Fauzia Sorenson PA-C Work Phone: [facility] 07-15-2024 13:48-0400 Heart rate 110 /min Fauzia Sorenson PA-C Work Phone: [facility] 07-15-2024 13:48-0400 Respiratory rate 14 /min Fauzia Sorenson PA-C Work Phone: [facility] 07-15-2024 13:48-0400 SaO2% (BldA) [Mass fraction] 95 % Fauzia Sorenson PA-C Work Phone: [facility] 07-15-2024 13:48-0400 Systolic blood pressure 118 mm[Hg] Fauzia Sorenson PA-C Work Phone: [facility] 04-29-2024 13:14-0400 Body mass index (BMI) [Ratio] 29.04 kg/m2 Jono Chavez COLLISION TECHNICIAN.DIRECTOR OF HOTEL OPERATIONS Work Phone: [facility] 04-29-2024 13:14-0400 Body temperature 97.3 [degF] Jono Chavez COLLISION TECHNICIAN.DIRECTOR OF HOTEL OPERATIONS Work Phone: [facility] 04-29-2024 13:14-0400 Body weight 84.1 kg Jono Chavez COLLISION TECHNICIAN.DIRECTOR OF HOTEL OPERATIONS Work Phone: [facility] 04-29-2024 13:14-0400 Diastolic blood pressure 86 mm[Hg] Jono Chavez COLLISION TECHNICIAN.DIRECTOR OF HOTEL OPERATIONS Work Phone: [facility] 04-29-2024 13:14-0400 Heart rate 94 /min Jono Rodriguezanita COLLISION TECHNICIAN.DIRECTOR OF HOTEL OPERATIONS Work Phone: [facility] 04-29-2024 13:14-0400 Respiratory rate 16 /min Jono Rodriguezanita COLLISION TECHNICIAN.DIRECTOR OF HOTEL OPERATIONS Work Phone: [facility] 04-29-2024 13:14-0400 SaO2% (BldA) [Mass fraction] 97 % Jono Chavez COLLISION TECHNICIAN.DIRECTOR OF HOTEL OPERATIONS Work Phone: [facility] 04-29-2024 13:14-0400 Systolic blood pressure 152 mm[Hg] Jono Chavez COLLISION TECHNICIAN.DIRECTOR OF HOTEL OPERATIONS Work Phone: [facility] 04-04-2024 15:58-0400 Body mass index (BMI) [Ratio] 29 kg/m2 eBnedict Berg COLLISION TECHNICIAN.DIRECTOR OF HOTEL OPERATIONS Work Phone: [facility] 04-04-2024 15:58-0400 Body temperature 97.11 [degF] Benedict Berg COLLISION TECHNICIAN.DIRECTOR OF HOTEL OPERATIONS Work Phone: [facility] 04-04-2024 15:58-0400 Body weight 84 kg Benedict Berg COLLISION TECHNICIAN.DIRECTOR OF HOTEL OPERATIONS Work Phone: [facility] 04-04-2024 15:58-0400 Diastolic blood pressure 86 mm[Hg] Benedict Berg COLLISION TECHNICIAN.DIRECTOR OF HOTEL OPERATIONS Work Phone: [facility] 04-04-2024 15:58-0400 Heart rate 89 /min Benedict Berg COLLISION TECHNICIAN.DIRECTOR OF HOTEL OPERATIONS Work Phone: [facility] 04-04-2024 15:58-0400 Respiratory rate 18 /min Benedict Berg COLLISION TECHNICIAN.DIRECTOR OF HOTEL OPERATIONS Work Phone: [facility] 04-04-2024 15:58-0400 SaO2% (BldA) [Mass fraction] 97 % Benedict Berg COLLISION TECHNICIAN.DIRECTOR OF HOTEL OPERATIONS Work Phone: [facility] 04-04-2024 15:58-0400 Systolic blood pressure 158 mm[Hg] Benedict Berg COLLISION TECHNICIAN.DIRECTOR OF HOTEL OPERATIONS Work Phone: [facility] 03-25-2024 12:49-0400 Body mass index (BMI) [Ratio] 28.24 kg/m2 Krislyn Aberegg PA Work Phone: [facility] 03-25-2024 12:49-0400 Body temperature 98.49 [degF] Krislyn Aberegg PA Work Phone: [facility] 03-25-2024 12:49-0400 Body weight 81.8 kg Krislyn Aberegg PA Work Phone: [facility] 03-25-2024 12:49-0400 Diastolic blood pressure 84 mm[Hg] Krislyn Aberegg PA Work Phone: [facility] 03-25-2024 12:49-0400 Heart rate 82 /min Krislyn Aberegg PA Work Phone: [facility] 03-25-2024 12:49-0400 Respiratory rate 16 /min Krislyn Aberegg PA Work Phone: [facility] 03-25-2024 12:49-0400 SaO2% (BldA) [Mass fraction] 97 % Krmarybeth Aberegg PA Work Phone: [facility] 03-25-2024 12:49-0400 Systolic blood pressure 122 mm[Hg] Krislyn Aberegg PA Work Phone: [facility] 03-17-2024 11:52-0400 Body height 170 cm GILL BAXTER MD [facility] 03-17-2024 11:52-0400 Body temperature 98.42 [degF] GILL BAXTER MD [facility] 03-17-2024 11:52-0400 Body weight 82 kg GILL BAXTER MD [facility] 03-17-2024 11:52-0400 Diastolic Blood Pressure Non-Invasive 92 mm[Hg] GILL BAXTER MD [facility] 03-17-2024 11:52-0400 Heart rate 89 /min GILL BAXTER MD [facility] 03-17-2024 11:52-0400 Respiratory rate 18 /min GILL BAXTER MD [facility] 03-17-2024 11:52-0400 Systolic Blood Pressure Non-Invasive 133 mm[Hg] GILL BAXTER MD [facility] 02-28-2024 10:23-0400 Body height 170.2 cm Sonia Geronimok PA-C Work Phone: [facility] 02-28-2024 10:23-0400 Heart rate 90 /min Sonia Kovachik PA-C Work Phone: [facility] 02-28-2024 10:23-0400 SaO2% (BldA) [Mass fraction] 95 % Sonia Kovachik PA-C Work Phone: [facility] 02-01-2024 13:47-0400 Body temperature 98.49 [degF] Des Moomaw COLLISION TECHNICIAN.DIRECTOR OF HOTEL OPERATIONS Work Phone: [facility] 02-01-2024 13:47-0400 Body weight 82.3 kg Des Moomaw COLLISION TECHNICIAN.DIRECTOR OF HOTEL OPERATIONS Work Phone: [facility] 02-01-2024 13:47-0400 Diastolic blood pressure 77 mm[Hg] Des Moomaw COLLISION TECHNICIAN.DIRECTOR OF HOTEL OPERATIONS Work Phone: [facility] 02-01-2024 13:47-0400 Heart rate 91 /min Des Moomaw COLLISION TECHNICIAN.DIRECTOR OF HOTEL OPERATIONS Work Phone: [facility] 02-01-2024 13:47-0400 Respiratory rate 18 /min Des Moomaw COLLISION TECHNICIAN.DIRECTOR OF HOTEL OPERATIONS Work Phone: [facility] 02-01-2024 13:47-0400 SaO2% (BldA) [Mass fraction] 98 % Des Moomaw COLLISION TECHNICIAN.DIRECTOR OF HOTEL OPERATIONS Work Phone: [facility] 02-01-2024 13:47-0400 Systolic blood pressure 123 mm[Hg] Des Moomaw COLLISION TECHNICIAN.DIRECTOR OF HOTEL OPERATIONS Work Phone: [facility] 08-10-2023 09:20-0400 Body height 170.2 cm Theresa Terry MD Work Phone: [facility] 08-10-2023 09:20-0400 Body weight 78.93 kg Theresa Terry MD Work Phone: [facility] 08-10-2023 09:20-0400 Diastolic blood pressure 72 mm[Hg] Theresa Terry MD Work Phone: [facility] 08-10-2023 09:20-0400 Heart rate 80 /min Theresa Terry MD Work Phone: [facility] 08-10-2023 09:20-0400 Respiratory rate 14 /min Theresa Terry MD Work Phone: [facility] 08-10-2023 09:20-0400 Systolic blood pressure 105 mm[Hg] Theresa Terry MD Work Phone: [facility] 04-27-2023 13:24-0400 Body weight 82.1 kg Fauzia Sorenson PA-C Work Phone: [facility] 04-27-2023 13:24-0400 Diastolic blood pressure 78 mm[Hg] Fauzia Sorenson PA-C Work Phone: [facility] 04-27-2023 13:24-0400 Heart rate 88 /min Fauzia Sorenson PA-C Work Phone: [facility] 04-27-2023 13:24-0400 SaO2% (BldA) [Mass fraction] 94 % Fauzia Sorenson PA-C Work Phone: [facility] 04-27-2023 13:24-0400 Systolic blood pressure 112 mm[Hg] Fauzia Sorenson PA-C Work Phone: [facility] 04-10-2023 21:35-0400 Diastolic blood pressure 72 mm[Hg] Shyam Harrison COLLISION TECHNICIAN-DIRECTOR OF HOTEL OPERATIONS Work Phone: [facility] 04-10-2023 21:35-0400 Heart rate 79 /min Shyam Harrison COLLISION TECHNICIAN-DIRECTOR OF HOTEL OPERATIONS Work Phone: [facility] 04-10-2023 21:35-0400 Respiratory rate 18 /min Shyam Harrison COLLISION TECHNICIAN-DIRECTOR OF HOTEL OPERATIONS Work Phone: [facility] 04-10-2023 21:35-0400 SaO2% (BldA) [Mass fraction] 98 % Shyam Harrison COLLISION TECHNICIAN-DIRECTOR OF HOTEL OPERATIONS Work Phone: [facility] 04-10-2023 21:35-0400 Systolic blood pressure 126 mm[Hg] Shyam Harrison COLLISION TECHNICIAN-DIRECTOR OF HOTEL OPERATIONS Work Phone: [facility] 04-10-2023 19:35-0400 Body height 170.2 cm Shyam Harrison COLLISION TECHNICIAN-DIRECTOR OF HOTEL OPERATIONS Work Phone: [facility] 04-10-2023 19:34-0400 Body temperature 97.7 [degF] Shyam Hunter COLLISION TECHNICIAN-DIRECTOR OF HOTEL OPERATIONS Work Phone: [facility] 03-14-2023 09:38-0400 Body height 170.2 cm Shyam Harrison COLLISION TECHNICIAN-DIRECTOR OF HOTEL OPERATIONS Work Phone: [facility] 03-14-2023 09:38-0400 Body mass index (BMI) [Ratio] 24.9 kg/m2 Shyam Harrison COLLISION TECHNICIAN-DIRECTOR OF HOTEL OPERATIONS Work Phone: [facility] 03-14-2023 09:38-0400 Body weight 72.12 kg Shyam Severinossfranko CARRASQUILLO-DIRECTOR OF HOTEL OPERATIONS Work Phone: [facility] 03-14-2023 09:38-0400 Diastolic blood pressure 64 mm[Hg] Shyam Harrison APRN-DIRECTOR OF HOTEL OPERATIONS Work Phone: [facility] 03-14-2023 09:38-0400 Heart rate 84 /min Shyam Harrison COLLISION TECHNICIAN-DIRECTOR OF HOTEL OPERATIONS Work Phone: [facility] 03-14-2023 09:38-0400 SaO2% (BldA) [Mass fraction] 96 % Shyam Harrison COLLISION TECHNICIAN-DIRECTOR OF HOTEL OPERATIONS Work Phone: [facility] 03-14-2023 09:38-0400 Systolic blood pressure 106 mm[Hg] Shyam Harrison APRN-DIRECTOR OF HOTEL OPERATIONS Work Phone: [facility] 10-12-2022 17:04-0500 Body temperature 97.9 [degF] Shyam Harrison COLLISION TECHNICIAN-DIRECTOR OF HOTEL OPERATIONS Work Phone: [employer] [facility] 10-12-2022 17:04-0500 Diastolic blood pressure 81 mm[Hg] Shyam Harrison COLLISION TECHNICIAN-DIRECTOR OF HOTEL OPERATIONS Work Phone: [facility] 10-12-2022 17:04-0500 Heart rate 82 /min Shyam Harrison APRN-DIRECTOR OF HOTEL OPERATIONS Work Phone: [facility] 10-12-2022 17:04-0500 Respiratory rate 22 /min Shyam Harrison APRN-DIRECTOR OF HOTEL OPERATIONS Work Phone: [employer] [facility] 10-12-2022 17:04-0500 SaO2% (BldA) [Mass fraction] 98 % Shyam Harrison APRN-DIRECTOR OF HOTEL OPERATIONS Work Phone: [employer] [facility] 10-12-2022 17:04-0500 Systolic blood pressure 117 mm[Hg] hSyam Harrison APRN-DIRECTOR OF HOTEL OPERATIONS Work Phone: [employer] [facility] 10-12-2022 17:00-0500 Body height 170.2 cm Shyam Harrison APRN-DIRECTOR OF HOTEL OPERATIONS Work Phone: [facility] 10-12-2022 17:00-0500 Body mass index (BMI) [Ratio] 23.49 kg/m2 Shyam Harrison APRN-DIRECTOR OF HOTEL OPERATIONS Work Phone: [employer] [facility] 10-12-2022 17:00-0500 Body weight 68.04 kg Shyam Harrison APRN-DIRECTOR OF HOTEL OPERATIONS Work Phone: [employer] [facility] 06-23-2022 14:36-0400 Body temperature 98.91 [degF] William Cee MD Work Phone: [employer] [facility] 06-23-2022 14:36-0400 Diastolic blood pressure 97 mm[Hg] William Cee MD Work Phone: [employer] [facility] 06-23-2022 14:36-0400 Heart rate 86 /min Wililam Cee MD Work Phone: [employer] [facility] 06-23-2022 14:36-0400 Respiratory rate 14 /min William Cee MD Work Phone: [employer] [facility] 06-23-2022 14:36-0400 SaO2% (BldA) [Mass fraction] 96 % William Cee MD Work Phone: [employer] [facility] 06-23-2022 14:36-0400 Systolic blood pressure 137 mm[Hg] William Cee MD Work Phone: [facility] 06-23-2022 14:35-0400 Body height 170.2 cm William Cee MD Work Phone: [facility] 06-23-2022 14:35-0400 Body mass index (BMI) [Ratio] 19.58 kg/m2 William Cee MD Work Phone: [facility] 06-23-2022 14:35-0400 Body weight 56.7 kg William Cee MD Work Phone: [facility] 03-29-2022 09:59-0400 Body height 170.2 cm Hortencia Lira DIRECTOR OF HOTEL OPERATIONS Work Phone: [facility] 03-29-2022 09:59-0400 Body mass index (BMI) [Ratio] 26 kg/m2 Hortencia Lira DIRECTOR OF HOTEL OPERATIONS Work Phone: [facility] 03-29-2022 09:59-0400 Body weight 75.3 kg Hortencia Lira DIRECTOR OF HOTEL OPERATIONS Work Phone: [employer] [facility] 03-29-2022 09:59-0400 Respiratory rate 18 /min Hortencia Lira DIRECTOR OF HOTEL OPERATIONS Work Phone: [facility] 03-29-2022 09:59-0400 SaO2% (BldA) [Mass fraction] 98 % Hortencia Lira DIRECTOR OF HOTEL OPERATIONS Work Phone: [facility] 03-07-2022 13:41-0400 Body height 170.2 cm Hortencia Lira DIRECTOR OF HOTEL OPERATIONS Work Phone: [employer] [facility] 03-07-2022 13:41-0400 Body mass index (BMI) [Ratio] 26 kg/m2 Hortencia Lira DIRECTOR OF HOTEL OPERATIONS Work Phone: [employer] [facility] 03-07-2022 13:41-0400 Body weight 75.3 kg Hortencia Lira DIRECTOR OF HOTEL OPERATIONS Work Phone: [facility] 03-07-2022 13:41-0400 Respiratory rate 18 /min Hortencia Lira DIRECTOR OF HOTEL OPERATIONS Work Phone: [facility] 02-21-2022 13:25-0400 Body height 170.2 cm Hortencia Lira CNP Work Phone: [facility] 02-21-2022 13:25-0400 Body mass index (BMI) [Ratio] 26 kg/m2 Hortencia Lira CNP Work Phone: [facility] 02-21-2022 13:25-0400 Body weight 75.3 kg Hortencia Lira CNP Work Phone: [facility] 02-21-2022 13:25-0400 Respiratory rate 18 /min Hortencia Lira CNP Work Phone: [facility] 02-21-2022 13:25-0400 SaO2% (BldA) [Mass fraction] 98 % Hortencia Lira CNP Work Phone: [facility] 02-10-2022 10:02-0400 Body height 170.2 cm Shyam Harrison COLLISION TECHNICIAN-DIRECTOR OF HOTEL OPERATIONS Work Phone: [facility] 02-10-2022 10:02-0400 Body mass index (BMI) [Ratio] 26 kg/m2 Shyam Harrison COLLISION TECHNICIAN-DIRECTOR OF HOTEL OPERATIONS Work Phone: [facility] 02-10-2022 10:02-0400 Body temperature 97.59 [degF] Shyam Severinossler COLLISION TECHNICIAN-DIRECTOR OF HOTEL OPERATIONS [facility] 02-10-2022 10:02-0400 Body weight 75.3 kg Shyam Severinossler COLLISION TECHNICIAN-DIRECTOR OF HOTEL OPERATIONS [facility] 02-10-2022 10:02-0400 Diastolic blood pressure 82 mm[Hg] Shyam Harrison COLLISION TECHNICIAN-DIRECTOR OF HOTEL OPERATIONS Work Phone: [facility] 02-10-2022 10:02-0400 Heart rate 95 /min Shyam Harrison COLLISION TECHNICIAN-DIRECTOR OF HOTEL OPERATIONS Work Phone: [facility] 02-10-2022 10:02-0400 SaO2% (BldA) [Mass fraction] 98 % Shyam Hunter HYDEN-DIRECTOR OF HOTEL OPERATIONS Work Phone: [employer] [facility] 02-10-2022 10:02-0400 Systolic blood pressure 118 mm[Hg] Shyam Hunter HYDEN-DIRECTOR OF HOTEL OPERATIONS Work Phone: [employer] [facility] 01-10-2022 12:50-0500 Body height 170.2 cm Shyam Hunter HYDEN-DIRECTOR OF HOTEL OPERATIONS Work Phone: [employer] [facility] 01-10-2022 12:50-0500 Body mass index (BMI) [Ratio] 26.5 kg/m2 Shyam Hunter COLLISION TECHNICIAN-DIRECTOR OF HOTEL OPERATIONS Work Phone: [employer] [facility] 01-10-2022 12:50-0500 Body temperature 98.01 [degF] Shyam Hunter HYDEN-DIRECTOR OF HOTEL OPERATIONS Work Phone: [facility] [facility] 01-10-2022 12:50-0500 Body weight 76.75 kg Shyam Hunter HYDEN-DIRECTOR OF HOTEL OPERATIONS Work Phone: [facility] [facility] 01-10-2022 12:50-0500 Diastolic blood pressure 72 mm[Hg] Shyam Hunter HYDEN-DIRECTOR OF HOTEL OPERATIONS Work Phone: [facility] [facility] 01-10-2022 12:50-0500 Heart rate 104 /min Shyam Harrison APRN-DIRECTOR OF HOTEL OPERATIONS Work Phone: [facility] [facility] 01-10-2022 12:50-0500 SaO2% (BldA) [Mass fraction] 96 % Shyam Hunter COLLISION TECHNICIAN-DIRECTOR OF HOTEL OPERATIONS Work Phone: [facility] [facility] 01-10-2022 12:50-0500 Systolic blood pressure 116 mm[Hg] Shyam Harrison COLLISION TECHNICIAN-DIRECTOR OF HOTEL OPERATIONS Work Phone: [facility] [facility] 09-23-2021 08:12-0500 Body height 170.2 cm Shyam Harrison COLLISION TECHNICIAN-DIRECTOR OF HOTEL OPERATIONS Work Phone: [facility] [facility] 09-23-2021 08:12-0500 Body mass index (BMI) [Ratio] 26.78 kg/m2 Shyam Harrison COLLISION TECHNICIAN-DIRECTOR OF HOTEL OPERATIONS Work Phone: [facility] 09-23-2021 08:12-0500 Body temperature 98.2 [degF] Shyam Harrison APRN-DIRECTOR OF HOTEL OPERATIONS Work Phone: [facility] 09-23-2021 08:12-0500 Body weight 77.56 kg Shyam Harrison COLLISION TECHNICIAN-DIRECTOR OF HOTEL OPERATIONS Work Phone: [facility] 09-23-2021 08:12-0500 Diastolic blood pressure 84 mm[Hg] Shyam Harrison COLLISION TECHNICIAN-DIRECTOR OF HOTEL OPERATIONS Work Phone: [facility] 09-23-2021 08:12-0500 Heart rate 81 /min Shyam Harrison APRN-DIRECTOR OF HOTEL OPERATIONS Work Phone: [facility] 09-23-2021 08:12-0500 Respiratory rate 18 /min Shyam Harrison APRN-DIRECTOR OF HOTEL OPERATIONS Work Phone: [facility] 09-23-2021 08:12-0500 SaO2% (BldA) [Mass fraction] 99 % Shyam Harrison APRN-DIRECTOR OF HOTEL OPERATIONS Work Phone: [facility] 09-23-2021 08:12-0500 Systolic blood pressure 132 mm[Hg] Shyam Harrison APRN-DIRECTOR OF HOTEL OPERATIONS Work Phone: [facility] 02-16-2021 12:55-0400 BMI (Body Mass Index) 26.12 kg/m2 [facility] 02-16-2021 12:55-0400 Body Temperature 96.69 [degF] [facility] 02-16-2021 12:55-0400 Body weight 75.66 kg [facility] 02-16-2021 12:55-0400 BP Diastolic 82 mm[Hg] [facility] 02-16-2021 12:55-0400 BP Systolic 132 mm[Hg] [facility] 02-16-2021 12:55-0400 Height 170.2 cm [facility] 02-16-2021 12:55-0400 Pulse (Heart Rate) 94 /min [facility] 02-16-2021 12:55-0400 Pulse Oximetry 98 % [facility] 11-18-2020 09:14-0500 BMI (Body Mass Index) 26.25 kg/m2 [facility] 11-18-2020 09:14-0500 Body Temperature 98.29 [degF] [facility] 11-18-2020 09:14-0500 Body weight 76.02 kg [facility] 11-18-2020 09:14-0500 BP Diastolic 78 mm[Hg] [facility] 11-18-2020 09:14-0500 BP Systolic 115 mm[Hg] [facility] 11-18-2020 09:14-0500 Height 170.2 cm [facility] 11-18-2020 09:14-0500 Pulse (Heart Rate) 90 /min [facility] 11-18-2020 09:14-0500 Pulse Oximetry 93 % [facility] 10-21-2020 14:11-0500 BMI (Body Mass Index) 26.69 kg/m2 [facility] 10-21-2020 14:11-0500 Body Temperature 98.1 [degF] [facility] 10-21-2020 14:11-0500 Body weight 77.29 kg [facility] 10-21-2020 14:11-0500 BP Diastolic 68 mm[Hg] [facility] 10-21-2020 14:11-0500 BP Systolic 102 mm[Hg] [facility] 10-21-2020 14:11-0500 Height 170.2 cm [facility] 10-21-2020 14:11-0500 Pulse (Heart Rate) 111 /min [facility] 10-21-2020 14:11-0500 Pulse Oximetry 97 % [facility] 09-23-2020 10:39-0500 BMI (Body Mass Index) 24.75 kg/m2 [facility] 09-23-2020 10:39-0500 Body Temperature 97.9 [degF] [facility] 09-23-2020 10:39-0500 Body weight 71.67 kg [facility] 09-23-2020 10:39-0500 BP Diastolic 80 mm[Hg] [facility] 09-23-2020 10:39-0500 BP Systolic 118 mm[Hg] [facility] 09-23-2020 10:39-0500 Height 170.2 cm [facility] 09-23-2020 10:39-0500 Pulse (Heart Rate) 88 /min [facility] 09-23-2020 10:39-0500 Pulse Oximetry 97 % [facility] 09-23-2020 10:39-0500 Respiratory Rate 16 /min [facility] 09-09-2020 10:32-0400 BMI (Body Mass Index) 25.06 kg/m2 [facility] 09-09-2020 10:32-0400 Body Temperature 98.01 [degF] [facility] 09-09-2020 10:32-0400 Body weight 72.58 kg [facility] 09-09-2020 10:32-0400 BP Diastolic 70 mm[Hg] [facility] 09-09-2020 10:32-0400 BP Systolic 102 mm[Hg] [facility] 09-09-2020 10:32-0400 Height 170.2 cm [facility] 09-09-2020 10:32-0400 Pulse (Heart Rate) 71 /min [facility] 09-09-2020 10:32-0400 Pulse Oximetry 95 % [facility] 09-09-2020 10:32-0400 Respiratory Rate 16 /min [facility] 07-14-2020 23:19-0400 BP Diastolic 78 mm[Hg] [facility] 07-14-2020 23:19-0400 BP Systolic 110 mm[Hg] [facility] 07-14-2020 23:19-0400 Pulse (Heart Rate) 68 /min [facility] 07-14-2020 23:19-0400 Respiratory Rate 14 /min [facility] 07-14-2020 22:29-0400 BMI (Body Mass Index) 20.36 kg/m2 [facility] 07-14-2020 22:29-0400 Body weight 58.97 kg [facility] 07-14-2020 22:29-0400 Height 170.2 cm [facility] 07-14-2020 22:28-0400 Body Temperature 98.4 [degF] [facility] 07-14-2020 22:28-0400 Pulse Oximetry 97 % [facility] 07-16-2019 18:54-0400 BMI (Body Mass Index) 23.02 kg/m2 [facility] 07-16-2019 18:54-0400 Body weight 66.68 kg [facility] 07-16-2019 18:54-0400 Height 170.2 cm [facility] 07-16-2019 18:50-0400 Body Temperature 98.29 [degF] [facility] 07-16-2019 18:50-0400 BP Diastolic 80 mm[Hg] [facility] 07-16-2019 18:50-0400 BP Systolic 119 mm[Hg] [facility] 07-16-2019 18:50-0400 Pulse (Heart Rate) 73 /min [facility] 07-16-2019 18:50-0400 Pulse Oximetry 97 % [facility] 07-16-2019 18:50-0400 Respiratory Rate 16 /min [facility] Encounters Encounter Date Encounter Type Care Provider Facility Start: 03-12-2025 End: 03-12-2025 Emergency department patient visit [facility] Facility:[facility] Start: 02-25-2025 End: 02-25-2025 Unlisted evaluation and management service Davonte Aj COLLISION TECHNICIAN.DIRECTOR OF HOTEL OPERATIONS Work Phone: Family Medicine Comment on above: NO SHOW (Primary Dx) Start: 02-21-2025 End: 02-22-2025 Emergency department patient visit NONE PHYSICIAN Facility:[facility] Start: 02-21-2025 End: 02-22-2025 Observation JERAMIE BRUNER MD [facility] Start: 02-21-2025 End: 02-21-2025 Emergency department patient visit NONE PHYSICIAN Facility:[facility] Start: 01-27-2025 End: 01-27-2025 Patient encounter procedure Fauzia Sorenson PA-C Work Phone: Urology Comment on above: Pelvic floor dysfunc tion (Primary Dx); Impotence of organic origin Start: 01-27-2025 End: 01-27-2025 ambulatory FAUZIA SORENSON Facility:[facility] Start: 01-26-2025 End: 01-26-2025 Emergency department patient visit FROYLAN HANSON MD Facility:[facility] Start: 01-05-2025 End: 01-05-2025 Emergency department patient visit No Primary Care Physician Facility:[facility] Start: 11-25-2024 End: 11-25-2024 Emergency department patient visit No Primary Care Physician Facility:[facility] Start: 11-25-2024 End: 11-25-2024 Emergency department patient visit FROYLAN HANSON MD [facility] Start: 10-28-2024 End: 10-28-2024 ambulatory FAUZIA SORENSON Facility:[facility] Start: 10-28-2024 End: 10-28-2024 Patient encounter procedure Fauzia Sorenson PA-C Work Phone: Urology Comment on above: Premature ejaculatio n (Primary Dx); Impotence of organic origin; Pelvic floor dysfunction; Pain in testicle, unspecified laterality Start: 10-21-2024 End: 10-21-2024 Emergency department patient visit No Primary Care Physician Facility:[facility] Start: 09-25-2024 End: 09-25-2024 Manual pelvic examination Karen Augustin PT, DPT [facility] [place] Comment on above: Pelvic pain in male (Primary Dx); Pain in testicle, unspecified laterality; Chronic constipation; Bladder neck obstruction; Retention of urine, unspecified; Detrusor sphincter dyssynergia Start: 09-25-2024 End: 09-25-2024 ambulatory Karen Augustin PT, DPT [facility] [place] Start: 08-28-2024 End: 08-28-2024 Subsequent hospital visit by physician Xr [facility] Hank Work Phone: Radiology Comment on above: URI, acute [J06.9] Start: 08-28-2024 End: 08-28-2024 ambulatory EMMANUEL GONZALEZ Facility:[facility] Start: 08-28-2024 End: 08-28-2024 Patient encounter procedure Comfort Rincon APRN.CNP [facility] Comment on above: URI, acute (Primary Dx); Acute cough Start: 07-29-2024 End: 07-29-2024 ambulatory EMMANUEL GONZALEZ Facility:[facility] Start: 07-29-2024 End: 07-29-2024 Patient encounter procedure Fauzia Sorenson PA-C Work Phone: Urology Comment on above: Pelvic floor dysfunc tion (Primary Dx); Impotence of organic origin Start: 07-15-2024 End: 07-15-2024 ambulatory EMMANUEL GONZALEZ Facility:[facility] Start: 07-15-2024 End: 07-15-2024 Patient encounter procedure Fauzia Sorenson PA-C Work Phone: Urology Comment on above: Pelvic pain in male (Primary Dx); Pain in testicle, unspecified laterality; Pelvic floor dysfunction Start: 04-30-2024 Telephone encounter Shay Gonzalez MD Work Phone: [facility] Start: 04-29-2024 End: 04-29-2024 ambulatory EMMANUEL GONZALEZ Facility:[facility] Start: 04-29-2024 End: 04-29-2024 Office outpatient visit 25 minutes Jono Kathy CARRASQUILLO.DIRECTOR OF HOTEL OPERATIONS Work Phone: [facility] Comment on above: Screening for STD (s exually transmitted disease) (Primary Dx); STD exposure Start: 04-04-2024 End: 04-04-2024 ambulatory EMMANUEL GONZALEZ Facility:[facility] Start: 04-04-2024 End: 04-04-2024 Patient encounter procedure Benedict King SUZANNEDIRECTOR OF HOTEL OPERATIONS Work Phone: [facility] Comment on above: Exposure to chlamydi a (Primary Dx); Dysuria Start: 03-25-2024 End: 03-25-2024 ambulatory EMMANUEL GONZALEZ Facility:[facility] Start: 03-25-2024 End: 03-25-2024 Patient encounter procedure Winnie CASTRO Work Phone: [facility] Comment on above: Sore throat (Primary Dx); Mild persistent asthma without complication Start: 03-17-2024 End: 03-17-2024 Emergency department patient visit GILL BAXTER MD Facility:[facility] Start: 03-17-2024 End: 03-17-2024 Emergency department patient visit GILL BAXTER MD [facility] Start: 03-14-2024 End: 03-14-2024 ambulatory EMMANUEL GONZALEZ Facility:[facility] Start: 03-14-2024 End: 03-14-2024 Subsequent hospital visit by physician [facility] Work Phone: Radiology Comment on above: Pain in testicle, un specified laterality [N50.819] Start: 03-12-2024 E-mail encounter fro m caregiver [facility] Start: 03-12-2024 Patient encounter procedure [facility] Comment on above: appointment Start: 03-12-2024 Telephone encounter Sonia rider PA-C Work Phone: [facility] Comment on above: Orders Start: 02-28-2024 End: 02-28-2024 ambulatory EMMANUEL GONZALEZ Facility:[facility] Start: 02-28-2024 End: 02-28-2024 Patient encounter procedure Sonia Kramer PA-C Work Phone: [facility] Comment on above: Pain in testicle, un specified laterality [N50.819] (Primary Dx) Start: 02-01-2024 End: 02-01-2024 Patient encounter procedure Des Coffman DIRECTOR OF HOTEL OPERATIONS Work Phone: [facility] Comment on above: Testicular pain, rig ht (Primary Dx) Start: 10-19-2023 End: 10-19-2023 ambulatory JUSTUS BEAN JR Facility:[facility] Start: 10-19-2023 Patient encounter status Des mccullough COLLISION TECHNICIAN.DIRECTOR OF HOTEL OPERATIONS Work Phone: [facility] Work Phone: Start: 09-04-2023 End: 09-04-2023 Patient encounter procedure Justus Bean MD Work Phone: Urology Comment on above: Encounter for steril ization (Primary Dx) Start: 08-10-2023 End: 08-10-2023 Patient encounter procedure Theresa Terry MD Work Phone: Urology Comment on above: Encounter for steril ization (Primary Dx) Start: 07-24-2023 Telephone encounter Theresa worley MD Work Phone: [facility] Start: 05-02-2023 Telephone encounter Fauzia burton PA-C Work Phone: Urology Comment on above: Results; Orders Start: 04-30-2023 End: 04-30-2023 Subsequent hospital visit by physician [facility] Work Phone: Radiology Comment on above: Blood in semen [R36. 1] Start: 04-27-2023 Telephone encounter Theresa worley MD Work Phone: [facility] Comment on above: Appointment Start: 04-27-2023 End: 04-27-2023 Patient encounter procedure Fauzia Sorenson PA-C Work Phone: Urology Comment on above: Blood in semen (Prim frank Dx); Pain in both testicles; Scrotal varices Start: 04-10-2023 End: 04-10-2023 Emergency department patient visit SHYAM Rosenbaum [facility] Start: 04-10-2023 End: 04-10-2023 Emergency department patient visit Shyam Harrison COLLISION TECHNICIAN-DIRECTOR OF HOTEL OPERATIONS Work Phone: [facility] Start: 03-21-2023 ambulatory SHYAM HARRISON [facility] Start: 03-14-2023 [facility] Start: 03-14-2023 End: 03-14-2023 Office outpatient visit 15 minutes Shyam Harrison COLLISION TECHNICIAN-DIRECTOR OF HOTEL OPERATIONS Work Phone: [facility] Comment on above: Erectile dysfunction , unspecified erectile dysfunction type (Primary Dx); Disorder of ejaculation Start: 10-20-2022 End: 10-20-2022 Emergency department patient visit SHYAM Rosenbaum [facility] Start: 10-12-2022 End: 10-12-2022 Emergency department patient visit SHYAM Rosenbaum [facility] Start: 10-12-2022 End: 10-12-2022 Emergency department patient visit Shyam Harrison COLLISION TECHNICIAN-DIRECTOR OF HOTEL OPERATIONS Work Phone: [facility] Emergency Department Start: 06-23-2022 End: 06-23-2022 Emergency department patient visit SHYAM Rosenbaum [facility] Start: 06-23-2022 End: 06-23-2022 Emergency department patient visit William Cee MD Work Phone: [facility] Emergency Department Start: 04-06-2022 ambulatory [facility] Start: 04-06-2022 End: 04-06-2022 Subsequent hospital visit by physician Hortencia Lira CNP Work Phone: [facility] Comment on above: Arrived Start: 03-29-2022 ambulatory [facility] Start: 03-29-2022 End: 03-29-2022 Office outpatient visit 25 minutes Hortencia Lira CNP Work Phone: [facility] Urology Comment on above: Elevated prolactin l evel (Primary Dx); Vasculogenic erectile dysfunction, unspecified vasculogenic erectile dysfunction type; Kidney stone; Microscopic hematuria Start: 03-20-2022 [facility] Start: 03-20-2022 End: 03-20-2022 Subsequent hospital visit by physician Hortencia Lira CNP Work Phone: [facility] CT Scan Comment on above: Arrived Start: 03-07-2022 [facility] Start: 03-07-2022 End: 03-07-2022 Office outpatient visit 15 minutes Hortencia Lira DIRECTOR OF HOTEL OPERATIONS Work Phone: [facility] Urology Comment on above: Vasculogenic erectil e dysfunction, unspecified vasculogenic erectile dysfunction type (Primary Dx); Microscopic hematuria; Kidney stone Start: 03-03-2022 [facility] Start: 03-03-2022 End: 03-03-2022 Subsequent hospital visit by physician Hortencia Lira CNP Work Phone: [facility] Ultrasound Comment on above: Arrived Start: 02-22-2022 [facility] Start: 02-21-2022 [facility] [facility] Start: 02-21-2022 End: 02-21-2022 Office outpatient visit 25 minutes Hortencia Lira DIRECTOR OF HOTEL OPERATIONS Work Phone: [facility] Urology Comment on above: Vasculogenic erectil e dysfunction, unspecified vasculogenic erectile dysfunction type (Primary Dx); Urinary frequency; Microscopic hematuria Start: 02-10-2022 End: 02-10-2022 Office outpatient visit 15 minutes Shyam Harrison COLLISION TECHNICIAN-DIRECTOR OF HOTEL OPERATIONS Work Phone: [facility] Comment on above: Erectile dysfunction , unspecified erectile dysfunction type (Primary Dx); Schizoaffective disorder, unspecified type; Hx of opioid abuse Start: 01-10-2022 End: 01-10-2022 Office outpatient visit 25 minutes Shyam Harrison COLLISION TECHNICIAN-DIRECTOR OF HOTEL OPERATIONS Work Phone: [facility] Comment on above: Erectile dysfunction , unspecified erectile dysfunction type (Primary Dx); Mild persistent asthma without complication; Diarrhea, unspecified type; Tobacco abuse disorder Start: 09-23-2021 End: 09-23-2021 Office outpatient visit 25 minutes Shyam Harrison COLLISION TECHNICIAN-DIRECTOR OF HOTEL OPERATIONS Work Phone: [facility] Comment on above: Mild persistent asth ma without complication (Primary Dx); Erectile dysfunction, unspecified erectile dysfunction type; Encounter for preventative adult health care examination; Tobacco abuse disorder Start: 09-23-2021 End: 09-23-2021 Patient encounter status Shyam Harrison COLLISION TECHNICIAN-DIRECTOR OF HOTEL OPERATIONS Work Phone: [facility] Start: 02-16-2021 End: 02-16-2021 Office outpatient visit 25 minutes Shyam Harrison Work Phone: [facility] Comment on above: Mild persistent asth ma without complication (Primary Dx); Erectile dysfunction, unspecified erectile dysfunction type; Tobacco abuse disorder Start: 11-18-2020 End: 11-18-2020 Office outpatient visit 15 minutes Shyam Harrison Work Phone: [facility] Comment on above: Erectile dysfunction , unspecified erectile dysfunction type (Primary Dx); Mild persistent asthma without complication; Schizoaffective disorder, unspecified type Start: 10-21-2020 End: 10-21-2020 Office outpatient visit 25 minutes Shyam Harrison Work Phone: [facility] Comment on above: Erectile dysfunction , unspecified erectile dysfunction type (Primary Dx); Mild persistent asthma without complication; Tobacco abuse disorder Start: 09-23-2020 End: 09-23-2020 Office outpatient visit 25 minutes Shyam Harrison Work Phone: [facility] Comment on above: Schizoaffective diso rder, unspecified type (Primary Dx); Mild persistent asthma without complication; Erectile dysfunction, unspecified erectile dysfunction type; Hx of opioid abuse; History of methamphetamine abuse Start: 09-09-2020 Patient encounter status Shyam Harrison COLLISION TECHNICIAN-DIRECTOR OF HOTEL OPERATIONS Work Phone: [facility] Start: 09-09-2020 End: 09-09-2020 Office outpatient new 45 minutes Shyam Harrison Work Phone: [facility] Comment on above: Encounter for medica l examination to establish care (Primary Dx); Mild persistent asthma without complication; Hx of opioid abuse; History of methamphetamine abuse; Tobacco abuse disorder Start: 07-14-2020 End: 07-14-2020 Emergency department patient visit Jun Martinez Work Phone: [facility] Emergency Department Start: 07-16-2019 End: 07-16-2019 Emergency department patient visit Camilo Phipps Work Phone: [facility] Start: 07-16-2019 End: 07-16-2019 Letter encounter Provider [facility] Start: 02-19-2018 Ambulatory Marce [facility] Start: 09-18-2017 Ambulatory UNKNOWN PROVIDER [facility] Procedures Date Procedure Procedure Detail Performing Clinician Start: 01-27-2025 Follow-up visit Follow Up FAUZIA SORENSON Start: 08-28-2024 Radiologic exam ches t 2 views Comfort Rincon COLLISION TECHNICIAN.DIRECTOR OF HOTEL OPERATIONS Work Phone: Start: 08-28-2024 STREP A MOLECULAR (POC) [facility] Provider Start: 04-29-2024 Urnls dip stick/tabl et rgnt auto w/o microscopy Jono Chavez COLLISION TECHNICIAN.DIRECTOR OF HOTEL OPERATIONS Work Phone: Start: 03-25-2024 STREP A MOLECULAR (POC) Winnie CASTRO Work Phone: Start: 02-28-2024 Urnls dip stick/tabl et rgnt auto w/o microscopy Sonia Kramer PA-C Work Phone: Start: 04-30-2023 Dup-scan artl jose abdl/pel/scrot&/rpr orgn com Fauzia Sorenson PA-C Work Phone: Start: 04-30-2023 Us scrotum & contents B refugio Sorenson PA-C Work Phone: Start: 04-27-2023 Urnls dip stick/tabl et rgnt auto w/o microscopy Fauzia Sorenson PA-C Work Phone: Start: 04-10-2023 Urinalysis microscopic only Justus Muñoz DIRECTOR OF HOTEL OPERATIONS Work Phone: Start: 04-10-2023 Urinalysis, reagent strip without microscopy Justus Muñoz DIRECTOR OF HOTEL OPERATIONS Work Phone: Start: 04-10-2023 Ct abdomen & pelvis w/o contrast material Justus Muñoz DIRECTOR OF HOTEL OPERATIONS Work Phone: Start: 04-06-2022 Mri brain brain stem w/o w/contrast material Hortencia Lira DIRECTOR OF HOTEL OPERATIONS Work Phone: Start: 03-29-2022 Urnls dip stick/tabl et rgnt auto w/o microscopy Hortencia Lira DIRECTOR OF HOTEL OPERATIONS Work Phone: Start: 03-07-2022 Urnls dip stick/tabl et rgnt auto w/o microscopy Hortencia Lira DIRECTOR OF HOTEL OPERATIONS Work Phone: Start: 03-03-2022 Us retroperitoneal r eal time w/image complete Hortencia Lira DIRECTOR OF HOTEL OPERATIONS Work Phone: Start: 02-21-2022 Urnls dip stick/tabl et rgnt auto w/o microscopy Hortencia Lira DIRECTOR OF HOTEL OPERATIONS Work Phone: Start: 09-23-2021 Complete blood count with white cell differential, automated Shyam Chongler COLLISION TECHNICIAN-DIRECTOR OF HOTEL OPERATIONS Work Phone: Start: 09-23-2021 Comprehensive metabo lic panel Shyam Harrison COLLISION TECHNICIAN-DIRECTOR OF HOTEL OPERATIONS Work Phone: Start: 09-23-2021 Lipid panel Shyam ortiz COLLISION TECHNICIAN-DIRECTOR OF HOTEL OPERATIONS Work Phone: Start: 09-23-2021 Lipid 1996 panel - S edwin or Plasma Des Coffman COLLISION TECHNICIAN.DIRECTOR OF HOTEL OPERATIONS Work Phone: Start: 07-16-2019 URINALYSIS, MACRO Camilo Phipps Work Phone: Start: 02-24-2014 Lipid 1996 panel - S edwin or Plasma Theresa Terry MD Work Phone: Entire testicle (bod y structure) GILL BAXTER MD Comment on above: varicele Plan of Treatment Date Care Activity Detail Author Start: 09-23-2026 Lipid panel Lipid Screening [facility] Start: 02-25-2026 Annual PCP Team Chronic Disease Visit Annual PCP Team Chronic Disease Visit [facility] Start: 03-31-2025 End: 03-31-2025 Patient encounter procedure 03/31/2025 2:15 PM EDT Office Visit Gastroenterology [facility] [address] [place] [id number] Erin Gandhi, COLLISION TECHNICIAN.DIRECTOR OF HOTEL OPERATIONS [address] [place] [address] consult for [facility] followup throat issues, possible EGD [facility] Comment on above: consult for [facility] followup throat i ssues, possible EGD Start: 01-27-2025 End: 01-27-2025 Patient encounter procedure 01/27/2025 4:30 PM EDT Office Visit Urology [address] [place] [address] Fauzia Sorenson PA-C [address] [place], [place] [id number] 3 month follow up Urology Comment on above: 3 month follow up Start: 10-28-2024 End: 10-28-2024 Patient encounter procedure 10/28/2024 3:30 PM EST Office Visit Urology [address] [place] [address] Fauzia Sorenson PA-C [address] [place], [place] [id number] DISCUSS ED Urology Comment on above: DISCUSS ED Start: 09-25-2024 End: 09-25-2024 Manual pelvic examination 09/25/2024 10:45 AM EST OT/PT/Speech Visit [facility] [place] [address] [place] [address] Karen Augustin, PT, DPT Pelvic pain in male [R10.2] [facility] [place] Comment on above: Pelvic pain in male [R10.2] Start: 07-29-2024 End: 07-29-2024 Patient encounter procedure 07/29/2024 2:30 PM EDT Office Visit Urology [address] [place] [address] Fauzia Sorenson PA-C [address] [place], [place] [phone] Discuss ED Urology Comment on above: Discuss ED Start: 07-13-2024 Covid-19 Vaccine ( season) Covid-19 Vaccine ( season) [facility] Start: 07-13-2024 Covid-19 Vaccine ( season) Covid-19 Vaccine () [facility] Start: 07-13-2024 Influenza vaccination [facility] Start: 04-10-2024 End: 04-10-2024 Patient encounter procedure 04/10/2024 9:15 AM EDT Office Visit [facility] [address] [place] [phone] Justus Bean Jr., MD [address] [place], [place] [phone] pain in testicle- per Sonia [facility] Comment on above: pain in testicle- per Sonia Start: 03-20-2024 End: 03-20-2024 Patient encounter procedure 03/20/2024 1:00 PM EDT Office Visit [facility] [address] [place] [address] Justus Bean Jr., MD [address] [place], [place] [phone] ultrasound prior- still has testicular pain- need to confirm(sonia would like pt to see steven for this) [facility] Comment on above: ultrasound prior- still has testicular p ain- need to confirm(sonia would like pt to see steven for this) Start: 03-14-2024 End: 03-14-2024 Patient encounter procedure 03/14/2024 9:15 AM EDT Appointment Radiology [address] [place] [address] Pain in testicle, unspecified laterality [N50.819] Radiology Comment on above: Pain in testicle, unspecified laterality [N50.819] Start: 03-12-2024 End: 03-12-2024 Patient encounter procedure 03/12/2024 1:15 PM EDT Office Visit [facility] [address] [place] [address] Sonia Kramer PA-C [address] [place] [address] sent [employer] message to call me Leonides Ambriz-----still has testicular pain [facility] Comment on above: sent [email or web address] message to call me Leonides Ambriz -----still has testicular pain Start: 11-12-2023 Behavioral Health Screening Behavioral Health Screening [facility] Start: 11-12-2023 Depression Assessment Depression Assessment [facility] Start: 11-09-2023 End: 08-10-2024 POST VASEC SCREEN POST VASEC SCREEN Andrology Routine Encounter for sterilization Expected: 11/09/2023, Expires: 08/10/2024 [facility] Work Phone: Comment on above: Expected: 11/09/2023, Expires: Start: 08-30-2023 HPV Vaccine (3 - 3-dose SCDM series) HPV Vaccine (3 - 3-dose SCDM series) [facility] Start: 07-13-2023 Covid-19 Vaccine (2022- season) Covid-19 Vaccine ( season) [facility] Start: 07-13-2023 Influenza vaccination [employer] Start: 11-12-2022 DEPRESSION ASSESSMENT DEPRESSION ASSESSMENT [facility] Start: 07-13-2022 Influenza vaccination [facility] Start: 07-13-2022 End: 07-13-2022 Patient encounter procedure 07/13/2022 Office Visit Family Medicine Shyam Harrison, COLLISION TECHNICIAN-DIRECTOR OF HOTEL OPERATIONS [address] [place] [address] [facility] Start: 07-13-2022 End: 07-13-2022 Patient encounter procedure 07/13/2022 Office Visit Family Medicine Shyam Harrison, COLLISION TECHNICIAN-DIRECTOR OF HOTEL OPERATIONS [address] [place] [address] [facility] Start: 06-01-2022 End: 06-01-2022 Patient encounter procedure 06/01/2022 Office Visit Endocrinology, Diabetes & Metabolism Emani Jaja, [facility] [address] [facility] [place] [address] [facility] End[facility]ology Start: 04-20-2022 End: 04-20-2022 Patient encounter procedure 04/20/2022 Office Visit Urology Margarito Thorne MD [address] [address] [facility] Start: 03-29-2022 End: 03-29-2023 Creatinine [Mass/volume] in Serum or Plasma CREATININE SERUM Lab Routine Elevated prolactin level Expected: 03/29/2022, Expires: 03/29/2023 [facility] Comment on above: Expected: 03/29/2022, Expires: 3 Start: 03-29-2022 End: 03-29-2023 MR Brain and Pituitary and Sella turcica WO and W contrast IV MRI PITUITARY WITH AND WITHOUT CONTRAST Imaging Routine Elevated prolactin level Expected: 03/29/2022, Expires: 03/29/2023 [facility] Comment on above: Expected: 03/29/2022, Expires: 3 Start: 03-21-2022 End: 03-21-2022 Patient encounter procedure 03/21/2022 Office Visit Urology Hortencia Lira CNP [address] [place] [address] [facility] Start: 03-07-2022 End: 03-07-2023 CT Abdomen and Pelvis WO contrast CT ABDOMEN/PELVIS WITHOUT CONTRAST Imaging Routine Kidney stone Expected: 03/07/2022, Expires: 03/07/2023 [facility] Comment on above: Expected: 03/07/2022, Expires: Start: 03-07-2022 End: 03-07-2023 [facility] Comment on above: Expected: 03/07/2022, Expires: Start: 03-07-2022 End: 03-07-2022 Patient encounter procedure 03/07/2022 Office Visit Urology Hortencia Lira CNP [address] [place] [address] [facility] Start: 03-01-2022 End: 03-01-2022 Patient encounter procedure 03/01/2022 Office Visit Urology Hortencia Lira CNP [address] [place] [address] [facility] Start: 02-21-2022 End: 02-21-2023 FSH FSH Lab Routine Vasculogenic erectile dysfunction, unspecified vasculogenic erectile dysfunction type Expected: 02/21/2022, Expires: 02/21/2023 [facility] Comment on above: Expected: 02/21/2022, Expires: Start: 02-21-2022 End: 02-21-2023 HEMOGLOBIN & HEMATOCRIT HEMOGLOBIN & HEMATOCRIT Lab Routine Vasculogenic erectile dysfunction, unspecified vasculogenic erectile dysfunction type Expected: 02/21/2022, Expires: 02/21/2023 [facility] Comment on above: Expected: 02/21/2022, Expires: Start: 02-21-2022 End: 02-21-2023 LH LH Lab Routine Vasculogenic erectile dysfunction, unspecified vasculogenic erectile dysfunction type Expected: 02/21/2022, Expires: 02/21/2023 [facility] Comment on above: Expected: 02/21/2022, Expires: 3 Start: 02-21-2022 End: 02-21-2023 PROLACTIN PROLACTIN Lab Routine Vasculogenic erectile dysfunction, unspecified vasculogenic erectile dysfunction type Expected: 02/21/2022, Expires: 02/21/2023 [facility] Comment on above: Expected: 02/21/2022, Expires: 3 Start: 02-21-2022 End: 02-21-2023 SEX HORMONE BINDING GLOBULIN SEX HORMONE BINDING GLOBULIN Lab Routine Vasculogenic erectile dysfunction, unspecified vasculogenic erectile dysfunction type Expected: 02/21/2022, Expires: 02/21/2023 [facility] Comment on above: Expected: 02/21/2022, Expires: 3 Start: 02-21-2022 End: 02-21-2023 Testosterone [Mass/volume] in Serum or Plasma TESTOSTERONE Lab Routine Vasculogenic erectile dysfunction, unspecified vasculogenic erectile dysfunction type Expected: 02/21/2022, Expires: 02/21/2023 [facility] Comment on above: Expected: 02/21/2022, Expires: 3 Start: 02-21-2022 End: 02-21-2022 Patient encounter procedure 02/21/2022 Office Visit Urology Hortencia Lira, DIRECTOR OF HOTEL OPERATIONS [address] [place] [address] [facility] Start: 07-13-2021 Influenza vaccination [facility] Start: 02-16-2021 End: 02-16-2021 Office Visit 02/16/2021 Office Visit Family Medicine Shyam Harrison, COLLISION TECHNICIAN-DIRECTOR OF HOTEL OPERATIONS [address] [place] [address] [phone] [facility] Start: 02-02-2021 ANNUAL PCP TEAM CHRONIC DISEASE VISIT ANNUAL PCP TEAM CHRONIC DISEASE VISIT [facility] Start: 11-18-2020 End: 11-18-2020 Office Visit 11/18/2020 Office Visit Family Medicine Shyam Harrison Robi, COLLISION TECHNICIAN-DIRECTOR OF HOTEL OPERATIONS [address] [place] [address] [phone] [facility] Start: 10-21-2020 End: 10-21-2020 Office Visit 10/21/2020 Office Visit Family Medicine Shyam Harrison Robi, COLLISION TECHNICIAN-DIRECTOR OF HOTEL OPERATIONS [address] [place] [address] [phone] [facility] Start: 09-23-2020 End: 09-23-2020 Office Visit 09/23/2020 Office Visit Family Medicine Shyam Harrison Robi, COLLISION TECHNICIAN-DIRECTOR OF HOTEL OPERATIONS [address] [place] [address] [phone] [facility] Start: 07-13-2020 Influenza vaccination INFLUENZA VACCINE (#1) [facility] Start: 07-13-2019 Influenza vaccination INFLUENZA VACCINE (#1) [facility] Start: 02-24-2019 Lipid 1996 panel - Serum or Plasma Lipid Screening [facility] Start: 02-24-2019 LIPID SCREEN LIPID SCREEN [facility] Start: 10-31-2012 Urine microalbumin profile [facility] Start: 2002 Pneumococcal vaccination Pneumococcal Vaccine (1 of 2 - PCV) [facility] Start: 2002 Third diphtheria, tetanus and acellular pertussis (DTaP) vaccination TDAP (ADULT) [facility] Start: 2001 Annual PCP Team Chronic Disease Visit Annual PCP Team Chronic Disease Visit [facility] Start: 2001 Depression Screening Depression Screening [facility] Start: 2001 Tetanus vaccination [facility] Start: 1999 COVID-19 VACCINE (1) COVID-19 VACCINE (1) [facility] Start: 1998 HIV screening HIV SCREENING DISCUSSION [facility] Start: 1996 HIV screening HIV SCREENING DISCUSSION [facility] Start: 1989 PNEUMOCOCCAL (1 - PCV) PNEUMOCOCCAL (1 - PCV) [facility] Start: 1989 Pneumococcal vaccination [facility] Start: 1989 PNEUMOCOCCAL VACCINE SERIES (1 - PCV) PNEUMOCOCCAL VACCINE SERIES (1 - PCV) [facility] Start: 1989 PNEUMOCOCCAL VACCINE SERIES (1 of 2 - PPSV23) PNEUMOCOCCAL VACCINE SERIES (1 of 2 - PPSV23) [facility] Start: 1988 COVID-19 VACCINE (#1) COVID-19 VACCINE (#1) [facility] Start: 1988 COVID-19 VACCINE (1) COVID-19 VACCINE (1) [facility] Start: 1983 COVID-19 VACCINE (#1) COVID-19 VACCINE (#1) [facility] tem Start: 1983 Hepatitis C antibody, confirmatory test HEPATITIS C VIRUS SCREENING [facility] Start: 1983 Hepatitis C screening HEPATITIS C VIRUS SCREENING [facility] Start: 1983 Tetanus vaccination [facility] Bacteria identified in Urine by Culture URINE CULTURE Microbiology Routine 04/10/2023 8:48 PM EDT [facility] Work Phone: Chlamydia trachomatis+Neisseria gonorrhoeae DNA [Presence] in Unspecified specimen by TRACY with probe detection GONORRHEA/CHLAMYDIA NAAT Lab Routine Screening for STD (sexually transmitted disease) 04/29/2024 3:11 PM EDT [facility] Work Phone: Complete blood count with white cell differential, automated CBC, EDIF, PLATELET Lab Routine Encounter for preventative adult health care examination 09/23/2021 8:35 AM [facility] Comprehensive metabolic 2000 panel - Serum or Plasma COMPREHENSIVE METABOLIC PANEL Lab Routine Encounter for preventative adult health care examination 09/23/2021 8:35 AM [facility] COVID & INFLUENZA A/ B & RSV PCR, ROUTINE COVID & INFLUENZA A/B & RSV PCR, ROUTINE Microbiology Routine URI, acute Ordered: 08/28/2024 [facility] Work Phone: Comment on above: Ordered: 08/28/2024 End: 03-20-2022 CT Abdomen and Pelvis WO contrast [facility] Comment on above: 1 Occurrences starting 03/20/2022 until 03/20/2022 CYTOLOGY REQUEST CYTOLOGY REQUES T Cytology Routine Vasculogenic erectile dysfunction, unspecified vasculogenic erectile dysfunction type Urinary frequency Ordered: 02/21/2022 [facility] Comment on above: Ordered: 02/21/2022 End: 05-26-2024 Dup-scan artl jose abdl/pel/scrot&/rpr orgn com US DOPPLER COMPLETE Radiology Routine Blood in semen Scrotal varices Pain in both testicles 1 Occurrences starting 04/27/2023 until 05/26/2024 [facility] Work Phone: Comment on above: 1 Occurrences starting 04/27/2023 until 05/26/2024 LIPID PANEL W CALCULATED LDL LIPID PANEL W CALCULATED LDL Lab Routine Encounter for preventative adult health care examination 09/23/2021 8:35 AM EST [facility] Roddy post-voiding residual urine&/bladder cap [place] RODDY,POST-VOID RES,US,NON-IMAGING [place] Charge Routine Urinary frequency Ordered: 02/21/2022 [facility] Comment on above: Ordered: 02/21/2022 SURGICAL PATHOLOGY SURGICAL PATH OLOGY Lab Routine Encounter for sterilization Ordered: 08/10/2023 [facility] Work Phone: Comment on above: Ordered: 08/10/2023 End: 05-26-2024 Us scrotum & contents US SCROTUM AND CONTENTS Radiology Routine Blood in semen Scrotal varices Pain in both testicles 1 Occurrences starting 04/27/2023 until 05/26/2024 [facility] Work Phone: Comment on above: 1 Occurrences starting 04/27/2023 until 05/26/2024 End: 04-11-2025 US.doppler Scrotum and testicle US SCROTUM AND CONTENTS Radiology Routine Pain in testicle, unspecified laterality 1 Occurrences starting 03/12/2024 until 04/11/2025 [facility] Work Phone: Comment on above: 1 Occurrences starting 03/12/2024 until 04/11/2025 US.doppler Scrotum and testicle US SCROTUM AND CONTENTS Radiology Routine Pain in testicle, unspecified laterality 03/14/2024 10:58 AM EDT [facility] Work Phone: End: 04-11-2025 US.doppler Unspecified body region US DOPPLER COMPLETE Radiology Routine Pain in testicle, unspecified laterality 1 Occurrences starting 03/12/2024 until 04/11/2025 [facility] Comment on above: 1 Occurrences starting 03/12/2024 until 04/11/2025 US.doppler Unspecified body region US DOPPLER COMPLETE Radiology Routine Pain in testicle, unspecified laterality 03/14/2024 10:58 AM EDT [facility] Work Phone: [facility] Immunizations Immunization Date Immunization Notes Care Provider Fa cili 04-30-2023 Human Papillomavirus 9-valent vaccine Theresa Terry MD Work Phone: [facility] 02-16-2023 Human Papillomavirus 9-valent vaccine Theresa Terry MD Work Phone: [facility] 05-21-2020 hepatitis B vaccine, adult dosage Theresa Terry MD Work Phone: [facility] Work Phone: 12-22-2019 hepatitis B vaccine, adult dosage Theresa Terry MD Work Phone: [facility] Work Phone: 11-21-2019 hepatitis A and hepatitis B vaccine Theresa Terry MD Work Phone: [facility] Work Phone: 06-02-2014 hepatitis B vaccine, adult dosage Theresa Terry MD Work Phone: [facility] 04-01-2014 hepatitis A vaccine, adult dosage Theresa Terry MD Work Phone: [facility] Work Phone: 04-01-2014 hepatitis B vaccine, adult dosage Theresa Terry MD Work Phone: [facility] Work Phone: 10-30-2012 tetanus and diphther ia toxoids, not adsorbed, for adult use Theresa Terry MD Work Phone: [facility] Payers Date Payer Category Payer Self-pay 2023 Unknown [id number] 2022 Medicaid 2019 Unknown [id number] 2019 Unknown RONNY JEFFERSON xx xxxxxxxxxx 2019-Present xxxxxxxxxxxx [id number] 2019 Unknown [id number] 2019 Unknown [id number] 1985 Unknown [id number] 2.16.840.1.082607.3.579.2.983 1983 Unknown [id number] 2.16840.1.577518.3.579.2.983 1983 Unknown [id number] 2.840.1.990578.3.579.2.983 1983 Unknown [id number] 2.16840.1.480271.3.579.2.983 1983 Unknown [id number] 2.16840.1.269841.3.579.2.983 1983 Unknown [id number] 2.16840.1.891709.3.579.2.983 1983 Unknown [id number] 2.16840.1.069397.3.579.2.983 1983 Unknown [id number] 2.16840.1.196473.3.579.2.983 1983 Unknown [id number] 2.16840.1.907347.3.579.2.983 1983 Unknown [id number] 2.16840.1.708894.3.579.2.983 1983 Unknown [id number] 2.16840.1.613044.3.579.2.903 1983 Unknown [id number] 2.16840.1.591109.3.579.2.983 1983 Unknown [id number] 2.16.840.1.342735.3.579.2.983 1983 Unknown [id number] 2.16.840.1.888532.3.579.2.983 1983 Unknown [id number] 2.16.840.1.491496.3.579.2.627 1983 Unknown [id number] 2.16.840.1.868655.3.579.2.627 1983 Unknown [id number] 2.16840.1.754321.3.579.2.627 1983 Unknown [id number] 2.16.840.1.559916.3.579.2.627 1983 Unknown [id number] 2.16840.1.852086.3.579.2.627 Unknown [id number] 2.16840.1.388753.3.579.2.462 Unknown [id number] 2.16840.1.792338.3.579.2.462 Unknown [id number] 2.16840.1.293856.3.579.2.462 Unknown [id number] 2.16840.1.700672.3.579.2.462 Social History Date Type Detail Facility Start: 2001 End: 07-15-2024 Tobacco smoking status NHIS Current every day smoker [facility] Start: 2001 History of tobacco use Cigarette Smo ker [facility] Start: 07-14-2020 End: 02-28-2024 Cigarettes smoked current (pack per day) - Reported [facility] Start: 07-14-2020 End: 07-15-2024 Tobacco use and exposure Never used [facility] Start: 07-14-2020 End: 04-29-2024 Alcohol intake Current non-drinker of alcohol (finding) [facility] Start: 1985 Sex Assigned At Not on file [facility] Start: 06-13-2022 End: 10-12-2022 Exposure to SARS-CoV-2 (event) Not sure [facility] Start: 08-25-2018 End: 02-28-2024 Alcohol intake No [facility] Start: 05-14-2017 End: 06-01-2023 Tobacco Comment 1 pack [facility] Start: 10-20-2019 Alcohol Comment None for 20 months [facility] Adult Depression Screening Assessment 1 [facility] Start: 03-17-2024 Tobacco smoking status Heavy t obacco smoker (finding) [facility] Assigned At [facility] Start: 07-15-2024 End: 01-27-2025 Alcoholic beverage intake Ex-drinker (finding) [facility] Start: 07-15-2024 Alcohol Comment Quit in 2018 [facility] Start: 1985 Sex assigned at Male C [facility] Start: 09-21-2024 Gender identity Identifies as male gender (finding) [facility] Start: 09-21-2024 Sexual orientation Heterosexual (fin ding) [facility] Start: 06-14-2014 Sex Male (finding) [facility] NEGATED: Highlighted rowStart: NINF History of tobacco use Passive smoker [facility] Functional Status Date Assessment Result Facility 02-22-2025 Functional Status 3pm-3am [facility] 11-25-2024 Functional Status Independent [facility] 11-25-2024 Functional Status ID band on, Allergy Band on, Call device within reach, Bed in low position, Wheels locked, Upper/Half-Length side-rails up, Safety level maintained [facility] 03-17-2024 Functional Status Standard Safet y ID band on, Allergy Band on, Call device within reach, Bed in low position, Wheels locked [facility] 01-05-2015 Are you deaf, or do you have serious difficulty hearing No 01/05/2015 2:44 PM Shruthi You LPN No [facility] 01-05-2015 Are you blind, or do you have serious difficulty seeing, even when wearing glasses No 01/05/2015 2:44 PM Shruthi You LPN No [facility] 01-05-2015 Do you have serious difficulty walking or climbing stairs No 01/05/2015 2:44 PM Blanca YouSHARDA brannon No [facility] 01-05-2015 Do you have difficul ty dressing or bathing No 01/05/2015 2:44 PM MARCIA Johnson SHARDA Hawkins No [facility] 01-05-2015 Because of a physica l, mental, or emotional condition, do you have difficulty doing errands alone such as visiting a physician's office or shopping No 01/05/2015 2:44 PM MARCIA Carterradha SHARDA Hawkins No [facility] Mental Status Date Assessment Result Facility 02-22-2025 Mental Status Orientation Oriented x 4 [facility] 11-25-2024 Mental Status Orientation Oriented x 4 [facility] 11-25-2024 Mental Status [facility] 03-17-2024 Mental Status Orientation Oriented x 4 [facility] 01-05-2015 Because of a physica l, mental, or emotional condition, do you have serious difficulty concentrating, remembering, or making decisions No 01/05/2015 2:44 PM MARCIA Alex SHARDA Hawkins No [facility] Clinical Notes 08-31-2014 to 02-25-2025 Davonte jA APRN.CNP - 02/25/2025 3:49 PM EDT Note Date & Type Note Facility 02-25-2025 Note HNO ID: [id number] Author: DAVONTE AJ APRN.MARCELLA Service: ? Author Type: Nurse Practitioner Type: Progress Notes Filed: 02/25/2025 15:50 Note Text: The patient did not show up for this appointment. [facility] 02-25-2025 History of Present illness Narrative The patient did not show up for this appointment. documented in this encounter [facility] 02-22-2025 Evaluation + Plan note Extrac madeline from: Title:History and Physical Author:JERAMIE BRUNER Date:02/22/25 Esophageal foreign body Esophageal foreign body n.p.o., IV fluids, GI aware will take the patient to endoscopy suite Esophageal stricture plan as above Asthma no evidence of flare stable Smoker uncontrolled schizophrenia controlled does not appear psychotic DVT prophylaxis SCDs Full code Patient was admitted for observation for the above Orders: Assign to Observation status, 02/22/25 1:45:00 EDT, Level of Care: Stepdown with monitor, Reason for Admission: See History & Physical, Diagnosis: fb, I certify that hospital services are medically necessary. At this time I do not anticipate a two midnight stay., Constant Order [facility] 04-13-2025 Gastroenterology Consult note Date of Service Attempted to see pt this morning but he had already left AMA around 7 am. Received page at 1 am that pt ate melon at 8 pm and since had trouble tolerating liquids though was able to tolerate secretions. Planned to evaluate pt and consider EGD this AM but according to ED nurse, he tolerated PO intake earlier today and thus left AMA prior to me seeing him. Digitally Signed by MIKHAIL LORA MD on 02/22/2025 09:34 AM [facility] [id number] History and physical note Date of Service 02/22/2025 Chief Complaint c/o melon stuck in throat History of Present Illness 39-year-old male with a history of esophageal stricture has had recurrent lodgment of foreign bodies requiring multiple EGDs presents with feeling like he got food stuck in his throat. Patient had been eating some melon and shortly after felt like he got something stuck in his throat became nauseated and started dry heaving and was brought to the emergency department for evaluation In the emergency department Vital signs significant for elevated blood pressure 149/102 ED physician discussed the case with gastroenterology on-call who recommended admitting to the hospital service and that she was taken to endoscopy suite this morning I personally spoke to the ED physician Dr. Mi regarding the patient's presentation Patient was seen and examined at the bedside in the presence of his family Review of Systems All pertinent positive and negative review of systems as per HPI, all other review of systems reviewed and negative Physical Exam Vitals and Measurements T: 36.3 C (Temporal Artery) HR: 92 RR: 18 BP: 149/102 SpO2: 94% WT: 79.1 kg Weight Dosing Weight: 79.1 kg (02/21/25) GENERAL: Mild distress but nontoxic ASSISTIVE DEVICES: None PSYCHIATRIC: appropriate HEENT moist mucous membranes extraocular muscles intact palpitated voice no drooling CARDIOVASCULAR: Regular rate, regular rhythm, no murmurs noted. Notrace lower extremity pitting edema. No lymphedema. Dorsalis Pedis pulses+2/4 blaterally . Posterior Tibialis pulses+2/4 bilaterally . RESPIRATORY: Regular rate and depth; no distress, RIGHT lungclear ; LEFT lungclear . Breath soundsnormal . ABDOMEN soft, no guarding, nontender, nondistended, positive bowel sounds, NEURO: no focal deficits DERM: no acute rash Lab Results No 36 Hour Lab Data Assessment/Plan Esophageal foreign body Esophageal foreign body n.p.o., IV fluids, GI aware will take the patient to endoscopy suite Esophageal stricture plan as above Asthma no evidence of flare stable Smoker uncontrolled schizophrenia controlled does not appear psychotic DVT prophylaxis SCDs Full code Patient was admitted for observation for the above Orders: Assign to Observation status, 02/22/25 1:45:00 EDT, Level of Care: Stepdown with monitor, Reason for Admission: See History & Physical, Diagnosis: fb, I certify that hospital services are medically necessary. At this time I do not anticipate a two midnight stay., Constant Order Problem List/Past Medical History Ongoing Asthma Schizophrenia Procedure/Surgical History No qualifying data available. Vasectomy Medications Home Medications (10) Active Abilify 10 mg oral tablet 10 mg = 1 tab(s), Oral, Daily albuterol MDI (90 mcg/inh) CFC free inhalation aerosol 2 puff(s), Inhalation, QID atomoxetine 100 mg oral capsule 100 mg = 1 cap(s), Oral, qAM benztropine 2 mg oral tablet 2 mg = 1 tab(s), Oral, TID cloNIDine 0.1 mg oral tablet 0.1 mg = 1 tab(s), Oral, BID hydrOXYzine pamoate 25 mg oral capsule 25 mg = 1 cap(s), PRN, Oral, QID ibuprofen 800 mg oral tablet 800 mg = 1 tab(s), PRN, Oral, TID Invega Hafyera 1560 mg/5 mL intramuscular suspension, extended release 1,560 mg, Intramuscular, q6mo [place] 325- 5 mg oral tablet 1 tab(s), PRN, Oral, q4h Xanax 0.25 mg oral tablet 0.25 mg = 1 tab(s), Oral, qDay Allergies Flexeril Latex hives Social History Smoking Status - 09/17/2017 Never smoker Alcohol - Denies Alcohol Use, 09/17/2017 Use: Never., 03/17/2024 Substance Abuse Use: Current. Type: Marijuana. Frequency: Daily., 09/17/2017 Tobacco Nicotine Use: 10 or more cigarettes (1/2 pack or more)/day in last 30 days. Type: Cigarettes., 03/17/2024 Family History Family history is negative Immunizations No qualifying data available. Code Status No qualifying data available. Digitally Signed by JERAMIE BRUNER MD on 02/22/2025 02:08 AM [facility] [id number] Instructions* Patient Instructions* Fauzia Sorenson PA-C - 02/08/2025 11:40 PM EDT Orders still active from 07/2024 call to schedule locally near [place] [facility] NoteHNO ID: [id number] Author: FAUZIA SORENSON PA-C Service: ? Author Type: Physician Networking Technician Type: Progress Notes Filed: 02/08/2025 23:40 Note Text: [facility] EST PATIENT CLINIC NOTE NAME: Josafat Alvarenga CHIEF COMPLAINT: Testicle Pain HISTORY OF PRESENT ILLNESS: Josafat Alvarenga is a 39 year old male an established patient following up for Testicle pain The patient reports as well as pain with ejaculation at times. We discus pelvic floor PT and recommend a consult appointment Pelvic Floor dysfunction - PFPT He has been unable to make PFPT appt due to lack of transportation , discussed there may be PFPT more local to him Recommend calling systems protection technician for PFPT and see what's available near [place] [facility] LUTS: No change still having same LUTS Other symptoms: ED - yes, unable to maintain erection well LABS: No results found for: PSA No results found for: TESTOST Hematocrit (%) Date Value 10/20/2019 48.2 11/02/2015 48.5 02/24/2014 45.5 No results found for: PSA Creatinine Date Value Ref Range Status 10/20/2019 0.89 0.73 - 1.22 mg/dL Final 10/20/2019 0.89 0.73 - 1.22 mg/dL Final 11/02/2015 0.92 0.70 - 1.40 mg/dL Final MEDICATIONS: albuterol HFA (PROVENTIL HFA, VENTOLIN HFA) 90 mcg/actuation inhaler Inhale 2 Puffs as instructed every 4 hours as needed for wheezing/shortness of breath. hydrOXYzine pamoate (VISTARIL) 25 mg capsule Take 25 mg by mouth once daily. benztropine (COGENTIN) 2 mg tablet Take 2 mg by mouth three times a day. benzonatate (TESSALON PERLES) 100 mg capsule Take 1 capsule by mouth three times a day as needed for cough. cloNIDine HCl (CATAPRES) 0.1 mg tablet Take 0.1 mg by mouth twice daily. INVEGA SUSTENNA 234 mg/1.5 mL syrg injection every 6 months fluticasone (FLOVENT) 220 mcg/actuation inhaler 2 Puffs twice daily. no spacer, swallow do not inhale, rinse and swallow with water, do not eat for 30 min after varenicline (CHANTIX CONTINUING MONTH BOX) 1 mg tablet Take 1 tablet by mouth twice daily. albuterol HFA (PROVENTIL HFA, VENTOLIN HFA) 90 mcg/actuation inhaler Inhale 2 Puffs as instructed every 6 hours as needed for Wheezing/Shortness of Breath. atomoxetine 100 mg capsule Take 100 mg by mouth once daily. meloxicam (MOBIC) 15 mg tablet Take 1 tablet by mouth once daily. Take this directly following a meal paliperidone palmitate (INVEGA TRINZA INTRAMUSC.) Inject intramuscularly. tamsulosin ER (FLOMAX) 0.4 mg cap Take 1 capsule by mouth daily at bedtime. fluconazole (DIFLUCAN) 200 mg tablet Take 400mg loading dose x1 day, then 200mg daily for 14 days total. 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 Last use 2013 History of marijuana use Impotence of organic origin 10/28/2024 Pain in testicle, unspecified laterality 07/15/2024 Pelvic floor dysfunction 07/15/2024 Pelvic pain in male 07/15/2024 Premature ejaculation Schizophrenia (HCC) Seeing Dr. Vicente Seasonal allergies Tobacco use disorder REVIEW OF SYSTEMS: GENERAL: No fever, chills, weight loss, or fatigue. PHYSICAL EXAMINATION: Blood pressure 118/74, pulse 112, temperature 36.8 ?C (98.3 ?F), temperature source Temporal, resp. rate 14, height 170.2 cm (5' 7), weight 77.1 kg (170 lb), SpO2 99%. GENERAL: WNL nutrition, no deformities, healthy appearing GENITOURINARY: MALE EXAM: No scrotal lesions, cysts, rashes. Epididymis AND testes: normal size, position, without masses Urethra AND meatus: normal size AND position w/o lesion or discharge Pelvic Floor - spasms - same as previous exam PROBLEM LIST REVIEW: Yes LABS: ASSESSMENT/PLAN: 1. Pelvic pain in male - ICD9: 789.09, ICD10: R10.2 (primary diagnosis) - CONSULT TO PHYSICAL THERAPY 2. Pain in testicle, unspecified laterality - ICD9: 608.9, ICD10: N50.819 - CONSULT TO PHYSICAL THERAPY 3. Pelvic floor dysfunction - ICD9: 618.83, ICD10: M62.89 New Diagnosis of unknown prognosis > 3 mo Follow-up with VINCENT Malhotra MT, PA-C after PFPT VINCENT Leal, GLORIA DAVIS-[facility]03-30-2025 History of Present illness Narrative* Fauzia Sorenson PA-C - 02/08/2025 11:35 PM EDT Images from the original note were not included. [facility] EST PATIENT CLINIC NOTE NAME: Josafat Alvarenga CHIEF COMPLAINT: Testicle Pain HISTORY OF PRESENT ILLNESS: Josafat Alvarenga is a 39 year old male an established patient following up for Testicle pain The patient reports as well as pain with ejaculation at times. We discus pelvic floor PT and recommend a consult appointment Pelvic Floor dysfunction - PFPT He has been unable to make PFPT appt due to lack of transportation , discussed there may be PFPT more local to him Recommend calling systems protection technician for PFPT and see what's available near [place] [facility] LUTS: No change still having same LUTS Other symptoms: ED - yes, unable to maintain erection well LABS: No results found for: PSA No results found for: TESTOST Hematocrit (%) Date Value 10/20/2019 48.2 11/02/2015 48.5 02/24/2014 45.5 No results found for: PSA Creatinine Date Value Ref Range Status 10/20/2019 0.89 0.73 - 1.22 mg/dL Final 10/20/2019 0.89 0.73 - 1.22 mg/dL Final 11/02/2015 0.92 0.70 - 1.40 mg/dL Final MEDICATIONS: albuterol HFA (PROVENTIL HFA, VENTOLIN HFA) 90 mcg/actuation inhaler Inhale 2 Puffs as instructed every 4 hours as needed for wheezing/shortness of breath. hydrOXYzine pamoate (VISTARIL) 25 mg capsule Take 25 mg by mouth once daily. benztropine (COGENTIN) 2 mg tablet Take 2 mg by mouth three times a day. benzonatate (TESSALON PERLES) 100 mg capsule Take 1 capsule by mouth three times a day as needed for cough. cloNIDine HCl (CATAPRES) 0.1 mg tablet Take 0.1 mg by mouth twice daily. INVEGA SUSTENNA 234 mg/1.5 mL syrg injection every 6 months fluticasone (FLOVENT) 220 mcg/actuation inhaler 2 Puffs twice daily. no spacer, swallow do not inhale, rinse and swallow with water, do not eat for 30 min after varenicline (CHANTIX CONTINUING MONTH BOX) 1 mg tablet Take 1 tablet by mouth twice daily. albuterol HFA (PROVENTIL HFA, VENTOLIN HFA) 90 mcg/actuation inhaler Inhale 2 Puffs as instructed every 6 hours as needed for Wheezing/Shortness of Breath. atomoxetine 100 mg capsule Take 100 mg by mouth once daily. meloxicam (MOBIC) 15 mg tablet Take 1 tablet by mouth once daily. Take this directly following a meal paliperidone palmitate (INVEGA TRINZA INTRAMUSC.) Inject intramuscularly. tamsulosin ER (FLOMAX) 0.4 mg cap Take 1 capsule by mouth daily at bedtime. fluconazole (DIFLUCAN) 200 mg tablet Take 400mg loading dose x1 day, then 200mg daily for 14 days total. 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 Last use 2013 History of marijuana use Impotence of organic origin 10/28/2024 Pain in testicle, unspecified laterality 07/15/2024 Pelvic floor dysfunction 07/15/2024 Pelvic pain in male 07/15/2024 Premature ejaculation Schizophrenia (HCC) Seeing Dr. Vicente Seasonal allergies Tobacco use disorder REVIEW OF SYSTEMS: GENERAL: No fever, chills, weight loss, or fatigue. PHYSICAL EXAMINATION: Blood pressure 118/74, pulse 112, temperature 36.8 C (98.3 F), temperature source Temporal, resp. rate 14, height 170.2 cm (5' 7), weight 77.1 kg (170 lb), SpO2 99%. GENERAL: WNL nutrition, no deformities, healthy appearing GENITOURINARY: MALE EXAM: No scrotal lesions, cysts, rashes. Epididymis & testes: normal size, position, without masses Urethra & meatus: normal size & position w/o lesion or discharge Pelvic Floor - spasms - same as previous exam PROBLEM LIST REVIEW: Yes LABS: ASSESSMENT/PLAN: 1. Pelvic pain in male - ICD9: 789.09, ICD10: R10.2 (primary diagnosis) - CONSULT TO PHYSICAL THERAPY 2. Pain in testicle, unspecified laterality - ICD9: 608.9, ICD10: N50.819 - CONSULT TO PHYSICAL THERAPY 3. Pelvic floor dysfunction - ICD9: 618.83, ICD10: M62.89 New Diagnosis of unknown prognosis > 3 mo Follow-up with VINCENT Malhotra MT, PA-C after PFPT VINCENT Leal, HARRY DAVIS [facility] Hospital Discharge instructions Patient Education 11/25/2024 12:55:11 Chest Pain, Uncertain Cause Uncertain Causes of Chest Pain Chest pain can happen for a number of reasons. Sometimes the cause can't be determined. If your condition does not seem serious, and your pain does not appear to be coming from your heart, your healthcare provider may recommend watching it closely. Sometimes the signs of a serious problem take moretime to appear. Many problems not related to your heart can cause chest pain. These include: Musculoskeletal. Costochondritis is an inflammation of the tissues around the ribs that can occur from trauma or overuse injuries, or a strain of the muscles of the chest wall Respiratory. Pneumonia, collapsed lung (pneumothorax), or inflammation of the lining of the chest and lungs (pleurisy) Gastrointestinal. Esophageal reflux, heartburn, ulcers, or gallbladder disease Anxiety and panic disorders Nerve compression and inflammation Rare miscellaneous problems such as aortic aneurysm (a swelling of the large artery coming out of the heart) or pulmonary embolism (a blood clot in the lungs) Home care After your visit, follow these recommendations: Rest today and avoid strenuous activity. Take any prescribed medicine as directed. Be aware of any recurrent chest pain and notice any changes Follow-up care Follow up with your healthcare provider if you do not start to feel better within 24 hours, or as advised. Call 911 Call 911 if any of these occur: A change in the type of pain: if it feels different, becomes more severe, lasts longer, or begins to spread into your shoulder, arm, neck, jaw or back Shortness of breath or increased pain with breathing Weakness, dizziness, or fainting Rapid heart beat Crushing sensation in your chest When to seek medical advice Call your healthcare provider right away if any of the following occur: Cough with dark colored sputum (phlegm) or blood Fever of 100.4 F (38 C) or higher, or as directed by your healthcare provider Swelling, pain or redness in one leg [id number] [employer]. [address] [place] [address], [place] [address]. All rights reserved. This information is not intended as a substitute for professional medical care. Always follow yourhealthcare professional's instructions. Follow Up Care 11/25/2024 11:26:53 With:BROOKE GOLDBERG MD Address: [address] [place] [address]- When:2-4 days [facility] 01-14-2025 Note Discharge Instructions Thank you for allowing [facility] to assist you with your healthcare needs. The following is importantdischarge information regarding your hospital visit. Diagnosis from Today's Visit Atypical chest pain What to Do Next Instructions from Your Care Team No qualifying data available. Post Acute Orders No qualifying data available. You Need to Schedule the Following Appointments Follow Up with BROOKE GOLDBERG MD When:Within 2-4 days [facility] [facility] [place] [place] [address] Allergies Flexeril Latex hives Medications Please ask your primary doctor or pharmacist before taking any other medication not listed, including over the counter drugs, herbal medications, vitamins and or supplements as they may interact withyour home medications. What How Much When Instructions Last Dose Unchanged acetaminophen-HYDROcodone ([place] 325- 5 mg oraltablet) 1 tab(s) by mouth Every 4 hours as needed for for pain Unchanged albuterol (albuterol MDI (90 mcg/ inh) CFC free inhalation aerosol) 2 puff(s) by inhalation Four (4) times a day Unchanged ALPRAZolam (Xanax 0.25 mg oral tablet) 1 tab(s) by mouth Once a day Unchanged ARIPiprazole (Abilify 10 mg oral tablet) 1 tab(s) by mouth Every day Unchanged atomoxetine (atomoxetine 100 mg oral capsule) 1 cap by mouth Once a day (in the morning) Unchanged benztropine (benztropine 2 mg oral tablet) 1 tab(s) by mouth Three (3) times a day Unchanged cloNIDine (cloNIDine 0.1 mg oral tablet) 1 tab(s) by mouth Two (2) times a day Unchanged hydrOXYzine (hydrOXYzine pamoate 25 mg oral capsule) 1 cap by mouth Four (4) times a day as needed for for anxiety Unchanged ibuprofen (ibuprofen 800 mg oral tablet) 1 tab(s) by mouth Three (3) times a day as needed for as needed for pain Unchanged paliperidone (Invega Hafyera 1560 mg/ 5 mL intramuscular suspension, extended release) 1,560 Milligram Intramuscular Every 6 months shake well before using Please take this list to your next doctor s visit. Bring all medications you take, including over the counter medications, herbals and other supplements with you to your doctor s visit. Patients and families are reminded to discard old lists and to update any records with all medication providers or retail pharmacies. Education Materials Uncertain Causes of Chest Pain Chest pain can happen for a number of reasons. Sometimes the cause can't be determined. If your condition does not seem serious, and your pain does not appear to be coming from your heart, your healthcare provider may recommend watching it closely. Sometimes the signs of a serious problem take moretime to appear. Many problems not related to your heart can cause chest pain. These include: Musculoskeletal. Costochondritis is an inflammation of the tissues around the ribs that can occur from trauma or overuse injuries, or a strain of the muscles of the chest wall Respiratory. Pneumonia,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 Education Provided To: Patient (Significant other was present throughout) Education Mode/Type: Demonstration, Explanation/Discussion, Literature/Printed Materials, Performance Response to Education/Teach Back: States/Identifies, Return Demonstration, Requires Review/Additional Education TREATMENT: PT Treatment Interventions: Therapeutic Activity, Therapeutic Exercise, Manual TherapyAccess Code: [email or web address] URL: [email or web address] Date: 09/25/2024 Prepared by: KAREN AUGUSTIN Program Notes Squatty potty : 100% of the time fiber: 25-35 gms metamucil/ benefiber/ Psyllium ; add slowlyKIWIS:Miralax: adds water to pooWAter: 40 oz... + bottle ; wean off MD if you can self massage off the sitbone / ischiocavernosus muscle sit wide... Exercises - Happy Baby with Pelvic Floor Lengthening - 1 x daily - 7 x weekly - 30- 90seconds hold - Seated Happy Baby With Trunk Flexion For Pelvic Relaxation - 1 x daily - 7 x weekly - 30-90s hold - modified happy baby at door - 1 x daily - 7 x weekly - 30-90s hold - Seated Diaphragmatic Breathing - 1 x daily - 7 x weekly - 10-15min hold - 10 Minute Guided Meditation - 1 x daily - 7 x weekly Patient Education - cc Pelvic Floor - [place] Stool Chart - High-Fiber Diet to Support Pelvic Health - cc Pelvic Floor - Fiber Evaluation Evaluation Therapeutic Exercise: 1: Refer to [facility] for home exercise given with demo: Due till at therapeutic level: Patient reporting confidence with them Skilled Intervention: Patient was educated in proper exercise technique and purpose for exercises. Manual Therapy: 1: Address ischial cavernosus pain bilaterally: Teaching for self-care simultaneously 2: Cleared left lower quadrant as noted above for fascial restrictions Skilled Intervention: Manual skills to improve joint mobility, ROM, and decrease pain. Utilized anatomy knowledge of the therapist, and assessment of patient's response to intervention. Therapeutic Activity: 1: Significant change in bowel habits from 3 times a week to once a week and addressed hydration, fiber, all with motivational interviewing to identify with patient is able to improve 2: Sitting wider/ischial tuberosity gapping: All to offload and start to down train the pelvic floor Skilled Intervention: Correct performance of home program was facilitated with verbal, visual, and tactile cueing. Billing * Evaluation Moderate Complexity: 1 Unit Therapeutic Exercise Treatment Minutes: 6 Manual TherapyTreatment Minutes: 14 Therapeutic Activity Treatment Minutes: 12 Skilled Treatment Time Minutes (timed and untimed codes): 63 Total Session Time (minutes): 63 Session Start Time : 1003 Session Stop Time : 1106 Karen Augustin PT, DPT documented in [facility]Grand [facility] NoteHNO ID: [id number] Author: KAREN AUGUSTIN PT, DPT Service: ? Author Type: Physical Therapist Type: Progress Notes Filed: 09/25/2024 11:23 Note Text: Episode Visit Count: 1 Therapist That Will Accept/Oversee The Plan Of Care: Karen Augustin PT, DPT, [facility], [facility] Start of Care Date: 09/25/24 Plan of Care Certification Date: 09/25/24 Next Certification Due Date: 11/24/24 Patient Identified by Name and Date of : Yes REHABILITATION AND SPORTS THERAPY PHYSICAL THERAPY EVALUATION PLAN OF CARE: Assessment: Josafat Alvarenga presents with diagnosis of testicle pain that has improved and is now more in the suprapubic region that interferes with altered sexual function, bowel function . The patient presents with impairments in overall function. PROMIS? (Patient-Reported Outcomes Measurement Information System) scores were reviewed and identified as a rehabilitation concern. Prognosis for therapy is Good due to: current objective clinical presentation . The patient will benefit from skilled therapy services to meet the goals established for this plan of care as noted below. Goals for Episode of Care: established 09/25/24 Patient demonstrates independence and compliance with home exercise program. Patient is able to start the stream of urine in less than 5 seconds at least 99% of the time to normalize bladder function. Patient reports firmer stool consistency to combat fecal incontinence.-[place] 3 4 is the goal Patient reports increased water intake to 64-80 ounces/day to promote bladder and bowel health.-Discussed with patient his personal goal/motivational interviewing and today initial goal is to increase water intake Patient to limit caffeine to 1-2 but this will need to be managed for patient long-term cups/day to promote bladder health and reduce urinary urge episodes. Patient reports increased fiber intake up to 25-35 grams per day to normalize bowel health. Patient demonstrates ability to perform diaphragmatic breathing and relaxation practice independently to allow for decreased muscle tightness, decreased pain, and improved bladder/bowel function. Patient will report decreased pain rating by 2 points to meet minimal clinical important difference for numeric pain rating scale. Focus will be on down training pelvic floor with no pain with intercourse, no pain with sitting Patient Goals: no pain ; improved erection / ejaculation Time Frame for Goals and Treatment : 11/24/24 Planned Interventions, Frequency, and Duration: Current Frequency: 2x/week (Decrease to once a week once signs diminish) Duration: 8 weeks Total Number of Visits Planned: 16 Planned Treatment Interventions: Therapeutic exercise (27285), Neuromuscular re-education (32471), Manual therapy (94727), Therapeutic activities (87798), Self-detention management (77362), Functional training, General Conditioning, Biofeedback Pelvic (14028,07578) PLAN FOR NEXT VISIT: Addressed left lower quadrant, pelvic floor tone and consider internal rectal if pain continues: Down training: Review fiber and [place] Impact Patient demonstrates good understanding of plan of care and treatment. The above goals and plan of care were discussed and agreed upon by patient/family. SUBJECTIVE: prior to vasectomy; ; some erections 8/10 after sx ; 4/10 ; ejaculation: too soon and worse Patient Goals: no pain ; improved erection / ejaculation Functional Limitations: altered sexual function, bowel function Prior Level of Function: Independent without limitations Relevant History Past Relevant Medical Conditions: Anxiety, Depression (LUTS, bipolar, LBP R, schizophrenia) Recreation / Current Exercise: cleaning hourse/ walking unsure distance Hobbies / Interests: walking dog Home Environment Patient Lives With: Significant Other Intake Information: Prescription present Previous Treatment: None Pain: Pain Pain Level: 3 Pain Location: Suprapubic Description: Throbbing Frequency: Intermittent Detailed Pain Score: Yes Worst Pain Level: 8 (1 month ; max in last week 4) Average Pain Level: 3 Best Pain Level: 0 (after wlaking, if sit and relax) Post Treatment Pain Post Treatment Pain Level: Better Post Treatment Pain Location: Suprapubic Post Treatment Symptoms: feels 'something' in back but pain ant was better if not gone; hard to say PROMIS Scales 09/25/2024 12/12/2019 Higher is Better Phys Func - Score 42 (mild dysfunction) 46 (within normal limits) Phys Func - Percentile 21 34 Self-Eff Symptom - Score 39 (Low) Self-Eff Symptom - Percentile 14 T-scores: mean of general population = 50. 5 points is clinically meaningfully difference Percentiles provide an indication of how the patient's score ranks in relation to the general population. Higher percentile rankings indicate better function/quality of life. 50th percentile is the average of the general population and indicates half of resp (more content not included)...[facility]10-17-2024 History of Present illness Narrative* Rob Grider, RT(R) - 08/28/2024 5:20 PM EDT Radiology Service Progress Note PATIENT NAME: Josafat Alvarenga DATE OF SERVICE: August 28, 2024 TIME: 5:14 PM PATIENT IDENTITY VERIFICATION COMPLETED USING TWO (2) IDENTIFIERS: Name and Date of confirmedby patient verbally. FALL SCREENING: Has the patient had 2 falls in the last year or 1 fall with injury or currently using an Ambulatory Assistive Device (Walker, Cane, Wheelchair, Crutches, etc.)? No PATIENT GENDER DATA: Male PATIENT RELEVANT IMPLANT DATA REVIEWED: Yes PATIENT PRESENTS WITH AN IMPLANTABLE OR ATTACHED HOURLY SIGN LANGUAGE INTERPRETER: No RADIOLOGY DEPARTMENT: General X-ray: Exam(s) Completed: Chest X-Ray PERIPHERAL IV DATA: Not applicable SIGNED BY: RT Jaida(Norman) August 28, 2024 5:14 PM documented in this encounterGrand [facility]10-17-2024 NoteHNO ID: [id number] Author: ROB GRIDER RT(R) Service: ? Author Type: Customer Service Manager Type: Progress Notes Filed: 08/28/2024 17:21 Note Text: Radiology Service Progress Note PATIENT NAME: Josafat Alvarenga DATE OF SERVICE: August 28, 2024 TIME: 5:14 PM PATIENT IDENTITY VERIFICATION COMPLETED USING TWO (2) IDENTIFIERS: Name and Date of confirmed by patient verbally. FALL SCREENING: Has the patient had 2 falls in the last year or 1 fall with injury or currently using an Ambulatory Assistive Device (Walker, Cane, Wheelchair, Crutches, etc.)? No PATIENT GENDER DATA: Male PATIENT RELEVANT IMPLANT DATA REVIEWED: Yes PATIENT PRESENTS WITH AN IMPLANTABLE OR ATTACHED HOURLY SIGN LANGUAGE INTERPRETER: No RADIOLOGY DEPARTMENT: General X-ray: Exam(s) Completed: Chest X-Ray PERIPHERAL IV DATA: Not applicable SIGNED BY: RT Jaida(Norman) August 28, 2024 5:14 [facility]10-17-2024 NoteHNO ID: [id number] Author: COMFORT RINCON APRN.DIRECTOR OF HOTEL OPERATIONS Service: ? Author Type: Nurse Practitioner Type: Progress Notes Filed: 08/28/2024 18:43 Note Text: This note was created using NoteWriter. Subjective Josafat Alvarenga is a 39 year old male. 39 year old male with PMH asthma presents for illness. Acute onset 24 hours +cough +productive +runny nose +itchy eyes +sore throat +nausea Denies ears Denies fever or chills Denies CP Denies dyspnea Denies emesis Denies diarrhea The history is provided by the patient. No english as a second language instructor was used. Cough This is a new problem. The current episode started yesterday. The problem occurs constantly. The problem has not changed since onset.The cough is Productive of sputum. There has been no fever. Associated symptoms include chills, sweats, ear congestion and rhinorrhea. Pertinent negatives include no chest pain, no weight loss, no ear pain, no headaches, no sore throat, no myalgias, no shortness of breath, no wheezing and no eye redness. He has tried nothing for the symptoms. He is a smoker. His past medical history is significant for asthma. His past medical history does not include bronchitis, pneumonia, bronchiectasis, COPD or emphysema. PAST MEDICAL HISTORY Diagnosis Date Anxiety Asthma Attention deficit disorder Bipolar disorder ([facility]) Chronic lower back pain DDD (degenerative disc disease), lumbar with slipped discs Genital herpes Hepatitis C 08/2013 type 2b History of drug use disorder IV heroin and cocaine. Last use 2013 History of marijuana use Pain in testicle, unspecified laterality 07/15/2024 Pelvic floor dysfunction 07/15/2024 Pelvic pain in male 07/15/2024 Schizophrenia ([facility]) Seeing Dr. Vicente Seasonal allergies Tobacco use disorder PAST SURGICAL HISTORY Procedure Laterality Date CIRCUMCISION 08/27/2009 EGD 08/17/14 meat removed from stricture EGD 08/12/2019 foreign body removal EGD FLEXIBLE FOREIGN BODY REMOVAL 04/09/07 [facility], no dilatation ESOPHAGOGASTRODUODENOSCOPY TRANSORAL DIAGNOSTIC 05/13/14 eosinophilic esophagitis,relative stricture ESOPHAGOGASTRODUODENOSCOPY TRANSORAL DIAGNOSTIC 09/30/2014 EGD ESOPHAGOGASTRODUODENOSCOPY TRANSORAL DIAGNOSTIC 06/14/2017 [facility] with foreign body removed from esophagus ESOPHAGOGASTRODUODENOSCOPY TRANSORAL DIAGNOSTIC 08/13/2017 [facility] with foreign body removal from esophagus EXC VARICOCELE/LIGATION SPERMATIC VEINS SPX 2009 TONSILLECTOMY AND ADENOIDECTOMY TUBES (SPECIFY) TM as child ALLERGIES Latex and Flexeril [Cyclobenzaprine Hcl] MEDICATIONS benztropine (COGENTIN) 2 mg tablet Take 2 mg by mouth three times a day. albuterol HFA (PROVENTIL HFA, VENTOLIN HFA) 90 mcg/actuation inhaler Inhale 2 Puffs as instructed every 4 hours as needed for wheezing/shortness of breath. cloNIDine HCl (CATAPRES) 0.1 mg tablet Take 0.1 mg by mouth twice daily. INVEGA SUSTENNA 234 mg/1.5 mL syrg injection every 6 months atomoxetine 100 mg capsule Take 100 mg by mouth once daily. benzonatate (TESSALON PERLES) 100 mg capsule Take 1 capsule by mouth three times a day as needed for cough. fluticasone (FLOVENT) 220 mcg/actuation inhaler 2 Puffs twice daily. no spacer, swallow do not inhale, rinse and swallow with water, do not eat for 30 min after (Patient not taking: Reported on 02/28/2024) varenicline (CHANTIX CONTINUING MONTH BOX) 1 mg tablet Take 1 tablet by mouth twice daily. (Patient not taking: Reported on 02/28/2024) albuterol HFA (PROVENTIL HFA, VENTOLIN HFA) 90 mcg/actuation inhaler Inhale 2 Puffs as instructed every 6 hours as needed for Wheezing/Shortness of Breath. meloxicam (MOBIC) 15 mg tablet Take 1 tablet by mouth once daily. Take this directly following a meal (Patient not taking: Reported on 09/04/2023) paliperidone palmitate (INVEGA TRINZA INTRAMUSC.) Inject intramuscularly. (Patient not taking: Reported on 02/28/2024) tamsulosin ER (FLOMAX) 0.4 mg cap Take 1 capsule by mouth daily at bedtime. (Patient not taking: Reported on 02/28/2024) fluconazole (DIFLUCAN) 200 mg tablet Take 400mg loading dose x1 day, then 200mg daily for 14 days total. (Patient not taking: Reported on 02/28/2024) No family history on file. Social History Tobacco Use Smoking status: Every Day Current packs/day: 1.00 Average packs/day: 1 pack/day for 23.2 years (23.2 ttl pk-yrs) Types: Cigarettes Start date: 2001 Passive exposure: Never Smokeless tobacco: Never Tobacco comments: 1 pack Vaping Use Vaping status: Never Used Substance Use Topics Alcohol use: Not Currently Comment: Quit in 2018 Drug use: Not Currently Types: Marijuana Comment: Quit in 2016 Review of Systems Constitutional: Positive for chills and fatigue. Negative for weight loss. HENT: Positive for congestion and rhinorrhea. Negative for ear pain and sore throat. Eyes: Negative for pain, discharge, redness and itching. Respiratory: Positive for c (more content not included)...[facility]10-17-2024 History of Present illness Narrative* Comfort Rincon APRN.DIRECTOR OF HOTEL OPERATIONS - 08/28/2024 5:04 PM EDT This note was created using NoteWriter. Subjective Josafat Alvarenga is a 39 year old male. 39 year old male with PMH asthma presents for illness. Acute onset 24 hours +cough +productive +runny nose +itchy eyes +sore throat +nausea Denies ears Denies fever or chills Denies CP Denies dyspnea Denies emesis Denies diarrhea The history is provided by the patient. No english as a second language instructor was used. Cough This is a new problem. The current episode started yesterday. The problem occurs constantly. The problem has not changed since onset.The cough is Productive of sputum. There has been no fever. Associated symptoms include chills, sweats, ear congestion and rhinorrhea. Pertinent negatives include no chest pain, no weight loss, no ear pain, no headaches, no sore throat, no myalgias, no shortness of b reath, no wheezing and no eye redness. He has tried nothing for the symptoms. He is a smoker. His past medical history is significant for asthma. His past medical history does not include bronchitis,pneumonia, bronchiectasis, COPD or emphysema. PAST MEDICAL HISTORY Diagnosis Date Anxiety Asthma Attention deficit disorder Bipolar disorder (HCC) Chronic lower back pain DDD (degenerative disc disease), lumbar with slipped discs Genital herpes Hepatitis C 08/2013 type 2b History of drug use disorder IV heroin and cocaine. Last use 2013 History of marijuana use Pain in testicle, unspecified laterality 07/15/2024 Pelvic floor dysfunction 07/15/2024 Pelvic pain in male 07/15/2024 Schizophrenia ([facility]) Seeing Dr. Vicente Seasonal allergies Tobacco use disorder PAST SURGICAL HISTORY Procedure Laterality Date CIRCUMCISION 08/27/2009 EGD 08/17/14 meat removed from stricture EGD 08/12/2019 foreign body removal EGD FLEXIBLE FOREIGN BODY REMOVAL 04/09/07 [facility], no dilatation ESOPHAGOGASTRODUODENOSCOPY TRANSORAL DIAGNOSTIC 05/13/14 eosinophilic esophagitis,relative stricture ESOPHAGOGASTRODUODENOSCOPY TRANSORAL DIAGNOSTIC 09/30/2014 EGD ESOPHAGOGASTRODUODENOSCOPY TRANSORAL DIAGNOSTIC 06/14/2017 [facility] with foreign body removed from esophagus ESOPHAGOGASTRODUODENOSCOPY TRANSORAL DIAGNOSTIC 08/13/2017 [facility] with foreign body removal from esophagus EXC VARICOCELE/LIGATION SPERMATIC VEINS SPX 2009 TONSILLECTOMY & ADENOIDECTOMY <AGE 12 TUBES (SPECIFY) TM as child ALLERGIES Latex and Flexeril [Cyclobenzaprine Hcl] MEDICATIONS benztropine (COGENTIN) 2 mg tablet Take 2 mg by mouth three times a day. albuterol HFA (PROVENTIL HFA, VENTOLIN HFA) 90 mcg/actuation inhaler Inhale 2 Puffs as instructed every 4 hours as needed for wheezing/shortness of breath. cloNIDine HCl (CATAPRES) 0.1 mg tablet Take 0.1 mg by mouth twice daily. INVEGA SUSTENNA 234 mg/1.5 mL syrg injection every 6 months atomoxetine 100 mg capsule Take 100 mg by mouth once daily. benzonatate (TESSALON PERLES) 100 mg capsule Take 1 capsule by mouth three times a day as needed for cough. fluticasone (FLOVENT) 220 mcg/actuation inhaler 2 Puffs twice daily. no spacer, swallow do not inhale, rinse and swallow with water, do not eat for 30 min after (Patient not taking: Reported on 02/28/2024) varenicline (CHANTIX CONTINUING MONTH BOX) 1 mg tablet Take 1 tablet by mouth twice daily. (Patientnot taking: Reported on 02/28/2024) albuterol HFA (PROVENTIL HFA, VENTOLIN HFA) 90 mcg/actuation inhaler Inhale 2 Puffs as instructed every 6 hours as needed for Wheezing/Shortness of Breath. meloxicam (MOBIC) 15 mg tablet Take 1 tablet by mouth once daily. Take this directly following a meal (Patient not taking: Reported on 09/04/2023) paliperidone palmitate (INVEGA TRINZA INTRAMUSC.) Inject intramuscularly. (Patient not taking: Reported on 02/28/2024) tamsulosin ER (FLOMAX) 0.4 mg cap Take 1 capsule by mouth daily at bedtime. (Patient not taking: Reported on 02/28/2024) fluconazole (DIFLUCAN) 200 mg tablet Take 400mg loading dose x1 day, then 200mg daily for 14 days total. (Patient not taking: Reported on 02/28/2024) No family history on file. Social History Tobacco Use Smoking status: Every Day Current packs/day: 1.00 Average packs/day: 1 pack/day for 23.2 years (23.2 ttl pk-yrs) Types: Cigarettes Start date: 2001 Passive exposure: Never Smokeless tobacco: Never Tobacco comments: 1 pack Vaping Use Vaping status: Never Used Substance Use Topics Alcohol use: Not Currently Comment: Quit in 2017 Drug use: Not Currently Types: Marijuana Comment: Quit in 2015 Review of Systems Constitutional: Positive for chills and fatigue. Negative for weight loss. HENT: Positive for congestion and rhinorrhea. Negative for ear pain and sore throat. Eyes: Negative for pain, discharge, redness and itching. Respiratory: Positive for cough. Negative for apnea, chest tightness, shortness of breath and wheezing. Cardiovascular: Negative for chest pain. Gastrointestinal: Negative for abdominal pain, diarrhea, nausea and vomiting. Musculoskeletal: Negative for myalgias. Skin: Negative for color change, pallor, rash and wound. Allergic/Immunologic: Negative for environmental allergies, food allergies and immunocompromised state. Neurological: Negative for dizziness, facial asymmetry and headaches. Hematological: Negative for adenopathy. Does not bruise/bleed easily. Psychiatric/Behavioral: Negative for agitation and behavioral problems. Objective BP 140/100 Pulse 89 Temp (!) 35.7 C (96.2 F) Resp 24 Wt 76.5 kg (168 lb 10.4 oz) SpO2 100% BMI 26.41 kg/m Physical Exam Vitals and nursing note reviewed. Constitutional: General: He is not in acute distress. Appearance: Normal appearance. He is not ill-appearing, toxic-appearing or diaphoretic. HENT: Head: Normocephalic and atraumatic. Right Ear: External ear normal. Left Ear: External ear normal. Nose: Nose normal. No congestion or rhinorrhea. Mouth/Throat: Mouth: Mucous membranes are moist. Pharynx: Oropharynx is clear. No oropharyngeal exudate or posterior oropharyngeal erythema. Eyes: General: Right eye: No discharge. Left eye: No discharge. Extraocular Movements: Extraocular movements intact. Conjunctiva/sclera: Conjunctivae normal. Pupils: Pupils are equal, round, and reactive to light. Cardiovascular: Rate and Rhythm: Normal rate and regular rhythm. Pulses: Normal pulses. Heart sounds: Normal heart sounds. No murmur heard. No friction rub. No gallop. Pulmonary: Effort: Pulmonary effort is normal. No respiratory distress. Breath sounds: Normal breath sounds. No stridor. No wheezing, rhonchi or rales. Chest: Chest wall: No tenderness. Abdominal: General: Abdomen is flat. There is no distension. Palpations: Abdomen is soft. There is no mass. Tenderness: There is no abdominal tenderness. There is no guarding or rebound. Hernia: No hernia is present. Musculoskeletal: General: No swelling, tenderness, deformity or signs of injury. Normal range of motion. Cervical back: Normal range of motion and neck supple. No rigidity or tenderness. Right lower leg: No edema. Left lower leg: No edema. Lymphadenopathy: Cervical: No cervical adenopathy. Skin: General: Skin is warm and dry. Capillary Refill: Capillary refill takes less than 2 seconds. Coloration: Skin is not jaundiced or pale. Findings: No bruising, lesion or rash. Neurological: General: No focal deficit present. Mental Status: He is alert and oriented to person, place, and time. Cranial Nerves: No cranial nerve deficit. Sensory: No sensory deficit. Motor: No weakness. Coordination: Coordination normal. Gait: Gait normal. Deep Tendon Reflexes: Reflexes normal. Psychiatric: Mood and Affect: Mood normal. Behavior: Behavior normal. Thought Content: Thought content normal. Assessment and Plan ASSESSMENT/PLAN: 1. URI, acute - ICD9: 465.9, ICD10: J06.9 (primary diagnosis) X 24 hours No red flags - Discussed viral etiology and rationale for treatment. - Group A strep molecular testing negative - Symptomatic treatment with prn analgesia - Supportive care with fluids and rest - The patient may also use OTC cough and cold meds as needed, warm salt water gargles, throat lozenges and/or OTC throat spray as needed, and nasal saline gtts and suction prn. - Follow up in 3-5 days if symptoms persist or sooner if worsening of symptoms - XR CHEST 2V FRONTAL/LAT 2. Acute cough - ICD9: 786.2, ICD10: R05.1 X 1 day No red flags - XR CHEST 2V FRONTAL/LAT-negative for acute process RX Siddharth Cervantes Discussed red flags Comfort Rincon APRN.DIRECTOR OF HOTEL OPERATIONS documented in this encounterGrand [facility]24 NoteHNO ID: [id number] Author: FAUZIA SORENSON PA-C Service: ? Author Type: Physician Networking Technician Type: Progress Notes Filed: 07/29/2024 18:12 Note Text: Rescheduled patient since he has not had his PFPT consult, we will discuss his LUTS and ED furhter once started PFPT. VINCENT Leal MT, PA-CClSt[facility] History of Present illness Narrative* Fauzia Sorenson PA-C - 07/29/2024 6:10 PM EDT Rescheduled patient since he has not had his PFPT consult, we will discuss his LUTS and ED furhter once started PFPT. VINCENT Leal MT, PA-C documented in this encounterGrand Lake [facility]09-03-2024 Instructions* Patient Instructions* Fauzia Sorenson PA-C - 07/15/2024 2:30 PM EDT > Consult Pelvic Floor Dysfunction Follow up 3 month with VINCENT Malhotra MT, PA-C for PFPT Consult documented in this encounterGrand Lake [facility]09-03-2024 NoteHNO ID: [id number] Author: FAUZIA SORENSON PA-C Service: ? Author Type: Physician Networking Technician Type: Progress Notes Filed: 07/15/2024 17:42 Note Text: [facility] [place] [facility] EST PATIENT CLINIC NOTE SERVICE DATE: July 15, 2024 NAME: Josafat Alvarenga CHIEF COMPLAINT: Testicle Pain HISTORY OF PRESENT ILLNESS: Josafat Alvarenga is a 39 year old male an established patient following up for Testicle pain The patient reports as well as pain with ejaculation at times. We discus pelvic floor PT and recommend a consult appointment Pelvic Floor dysfunction - PFPT LUTS: DYSURIA: yes URGENCY: Yes FREQUENCY:8 per day NOCTURIA: 2 per night STRAINING TO VOID: No EMPTIES COMPLETELY: Yes UTI: No GROSS HEMATURIA: no UA DIPSTICK POSITIVE ONLY: no Other symptoms: ED - yes, unable to maintain erection well prior to vasectomy LABS: No results found for: PSA No results found for: TESTOST Hematocrit (%) Date Value 10/20/2019 48.2 11/02/2015 48.5 02/24/2014 45.5 No results found for: PSA Creatinine Date Value Ref Range Status 10/20/2019 0.89 0.73 - 1.22 mg/dL Final 10/20/2019 0.89 0.73 - 1.22 mg/dL Final 11/02/2015 0.92 0.70 - 1.40 mg/dL Final MEDICATIONS: albuterol HFA (PROVENTIL HFA, VENTOLIN HFA) 90 mcg/actuation inhaler Inhale 2 Puffs as instructed every 4 hours as needed for wheezing/shortness of breath. cloNIDine HCl (CATAPRES) 0.1 mg tablet Take 0.1 mg by mouth twice daily. INVEGA SUSTENNA 234 mg/1.5 mL syrg injection every 6 months STRAWBERRY (Patient not taking: Reported on 02/28/2024) fluticasone (FLOVENT) 220 mcg/actuation inhaler 2 Puffs twice daily. no spacer, swallow do not inhale, rinse and swallow with water, do not eat for 30 min after (Patient not taking: Reported on 02/28/2024) varenicline (CHANTIX CONTINUING MONTH BOX) 1 mg tablet Take 1 tablet by mouth twice daily. (Patient not taking: Reported on 02/28/2024) albuterol HFA (PROVENTIL HFA, VENTOLIN HFA) 90 mcg/actuation inhaler Inhale 2 Puffs as instructed every 6 hours as needed for Wheezing/Shortness of Breath. benztropine (COGENTIN) 1 mg tablet Take 1 mg by mouth three times daily. (Patient not taking: Reported on 02/28/2024) atomoxetine 100 mg capsule Take 100 mg by mouth once daily. (Patient not taking: Reported on 03/25/2024) meloxicam (MOBIC) 15 mg tablet Take 1 tablet by mouth once daily. Take this directly following a meal (Patient not taking: Reported on 09/04/2023) paliperidone palmitate (INVEGA TRINZA INTRAMUSC.) Inject intramuscularly. (Patient not taking: Reported on 02/28/2024) tamsulosin ER (FLOMAX) 0.4 mg cap Take 1 capsule by mouth daily at bedtime. (Patient not taking: Reported on 02/28/2024) fluconazole (DIFLUCAN) 200 mg tablet Take 400mg loading dose x1 day, then 200mg daily for 14 days total. (Patient not taking: Reported on 02/28/2024) PAST MEDICAL HISTORY: PAST MEDICAL HISTORY No date: Anxiety No date: Asthma No date: Attention deficit disorder No date: Bipolar disorder (HCC) No date: Chronic lower back pain No date: DDD (degenerative disc disease), lumbar Comment: with slipped discs No date: Genital herpes 08/2013: Hepatitis C Comment: type 2b No date: History of drug use disorder Comment: IV heroin and cocaine. Last use 2013 No date: History of marijuana use No date: Schizophrenia (HCC) Comment: Seeing Dr. Vicente No date: Seasonal allergies No date: Tobacco use disorder REVIEW OF SYSTEMS: GENERAL: No fever, chills, weight loss, or fatigue. PHYSICAL EXAMINATION: Blood pressure 118/84, pulse 110, temperature 36.4 ?C (97.6 ?F), temperature source Temporal, resp. rate 14, height 170.2 cm (5' 7), weight 78 kg (172 lb), SpO2 95%. GENERAL: WNL nutrition, no deformities, healthy appearing GENITOURINARY: MALE EXAM: No scrotal lesions, cysts, rashes. Epididymis AND testes: normal size, position, without masses Urethra AND meatus: normal size AND position w/o lesion or discharge Pelvic Floor - spasms PROBLEM LIST REVIEW: Yes LABS: Results for orders placed or performed in visit on 04/29/24 GONORRHEA/CHLAMYDIA NAAT Specimen: Urine, First Catch Result Value Ref Range Neisseria gonorrhoeae (GC) Negative for Neisseria gonorrhoeae by amplification Negative for Neisseria gonorrhoeae by amplification Chlamydia trachomatis (CT) Negative for Chlamydia trachomatis by amplificaton Negative for Chlamydia trachomatis by amplification UA DIP, URINE (POC) Result Value Ref Range GLUCOSE UA (POCT) Negative Negative mg/dL BILIRUBIN UA (POCT) Negative Negative KETONE UA (POCT) Negative Negative mg/dL SPECIFIC GRAVITY UA (POCT) 1.025 1.005 - 1.030 HEMOGLOBIN/BLOOD UA (POCT) Negative Negative PH UA (POCT) 5.5 4.5 - 8.0 PROTEIN UA (POCT) Negative Negative mg/dL UROBILINOGEN UA (POCT) 0.2 Normal E.U./dL NITRITE UA (POCT) Negative Negative LEUKOCYTES UA (POCT) Negative Negative (more content not included)...[facility]09-03-[facility]24 History of Present illness Narrative* Fauzia Sorenson PA-C - 07/15/2024 2:17 PM EDT Images from the original note were not included. [facility] [place] [facility] EST PATIENT CLINIC NOTE SERVICE DATE: July 15, 2024 NAME: Josafat Alvarenga CHIEF COMPLAINT: Testicle Pain HISTORY OF PRESENT ILLNESS: Josafat Alvarenga is a 39 year old male an established patient following up for Testicle pain The patient reports as well as pain with ejaculation at times. We discus pelvic floor PT and recommend a consult appointment Pelvic Floor dysfunction - PFPT LUTS: DYSURIA: yes URGENCY: Yes FREQUENCY:8 per day NOCTURIA: 2 per night STRAINING TO VOID: No EMPTIES COMPLETELY: Yes UTI: No GROSS HEMATURIA: no UA DIPSTICK POSITIVE ONLY: no Other symptoms: ED - yes, unable to maintain erection well prior to vasectomy LABS: No results found for: PSA No results found for: TESTOST Hematocrit (%) Date Value 10/20/2019 48.2 11/02/2015 48.5 02/24/2014 45.5 No results found for: PSA Creatinine Date Value Ref Range Status 10/20/2019 0.89 0.73 - 1.22 mg/dL Final 10/20/2019 0.89 0.73 - 1.22 mg/dL Final 11/02/2015 0.92 0.70 - 1.40 mg/dL Final MEDICATIONS: albuterol HFA (PROVENTIL HFA, VENTOLIN HFA) 90 mcg/actuation inhaler Inhale 2 Puffs as instructed every 4 hours as needed for wheezing/shortness of breath. cloNIDine HCl (CATAPRES) 0.1 mg tablet Take 0.1 mg by mouth twice daily. INVEGA SUSTENNA 234 mg/1.5 mL syrg injection every 6 months STRAWBERRY (Patient not taking: Reported on 02/28/2024) fluticasone (FLOVENT) 220 mcg/actuation inhaler 2 Puffs twice daily. no spacer, swallow do not inhale, rinse and swallow with water, do not eat for 30 min after (Patient not taking: Reported on 02/28/2024) varenicline (CHANTIX CONTINUING MONTH BOX) 1 mg tablet Take 1 tablet by mouth twice daily. (Patientnot taking: Reported on 02/28/2024) albuterol HFA (PROVENTIL HFA, VENTOLIN HFA) 90 mcg/actuation inhaler Inhale 2 Puffs as instructed every 6 hours as needed for Wheezing/Shortness of Breath. benztropine (COGENTIN) 1 mg tablet Take 1 mg by mouth three times daily. (Patient not taking: Reported on 02/28/2024) atomoxetine 100 mg capsule Take 100 mg by mouth once daily. (Patient not taking: Reported on 03/25/2024) meloxicam (MOBIC) 15 mg tablet Take 1 tablet by mouth once daily. Take this directly following a meal (Patient not taking: Reported on 09/04/2023) paliperidone palmitate (INVEGA TRINZA INTRAMUSC.) Inject intramuscularly. (Patient not taking: Reported on 02/28/2024) tamsulosin ER (FLOMAX) 0.4 mg cap Take 1 capsule by mouth daily at bedtime. (Patient not taking: Reported on 02/28/2024) fluconazole (DIFLUCAN) 200 mg tablet Take 400mg loading dose x1 day, then 200mg daily for 14 days total. (Patient not taking: Reported on 02/28/2024) PAST MEDICAL HISTORY: PAST MEDICAL HISTORY No date: Anxiety No date: Asthma No date: Attention deficit disorder No date: Bipolar disorder (HCC) No date: Chronic lower back pain No date: DDD (degenerative disc disease), lumbar Comment: with slipped discs No date: Genital herpes 08/2013: Hepatitis C Comment: type 2b No date: History of drug use disorder Comment: IV heroin and cocaine. Last use 2013 No date: History of marijuana use No date: Schizophrenia ([facility]) Comment: Seeing Dr. Vicente No date: Seasonal allergies No date: Tobacco use disorder REVIEW OF SYSTEMS: GENERAL: No fever, chills, weight loss, or fatigue. PHYSICAL EXAMINATION: Blood pressure 118/84, pulse 110, temperature 36.4 C (97.6 F), temperature source Temporal, resp. rate 14, height 170.2 cm (5' 7), weight 78 kg (172 lb), SpO2 95%. GENERAL: WNL nutrition, no deformities, healthy appearing GENITOURINARY: MALE EXAM: No scrotal lesions, cysts, rashes. Epididymis & testes: normal size, position, without masses Urethra & meatus: normal size & position w/o lesion or discharge Pelvic Floor - spasms PROBLEM LIST REVIEW: Yes LABS: Results for orders placed or performed in visit on 04/29/24 GONORRHEA/CHLAMYDIA NAAT Specimen: Urine, First Catch Result Value Ref Range Neisseria gonorrhoeae (GC) Negative for Neisseria gonorrhoeae by amplification Negative for Neisseria gonorrhoeae by amplification Chlamydia trachomatis (CT) Negative for Chlamydia trachomatis by amplificaton Negative for Chlamydia trachomatis by amplification UA DIP, URINE (POC) Result Value Ref Range GLUCOSE UA (POCT) Negative Negative mg/dL BILIRUBIN UA (POCT) Negative Negative KETONE UA (POCT) Negative Negative mg/dL SPECIFIC GRAVITY UA (POCT) 1.025 1.005 - 1.030 HEMOGLOBIN/BLOOD UA (POCT) Negative Negative PH UA (POCT) 5.5 4.5 - 8.0 PROTEIN UA (POCT) Negative Negative mg/dL UROBILINOGEN UA (POCT) 0.2 Normal E.U./dL NITRITE UA (POCT) Negative Negative LEUKOCYTES UA (POCT) Negative Negative COLOR UA (POCT) Yellow CLARITY UA (POCT) Clear ASSESSMENT/PLAN: 1. Pelvic pain in male - ICD9: 789.09, ICD10: R10.2 (primary diagnosis) - CONSULT TO PHYSICAL THERAPY 2. Pain in testicle, unspecified laterality - ICD9: 608.9, ICD10: N50.819 - CONSULT TO PHYSICAL THERAPY 3. Pelvic floor dysfunction - ICD9: 618.83, ICD10: M62.89 New Diagnosis of unknown prognosis > 3 mo Follow-up with VINCENT Malhotra MT, PA-C after PFPT VINCENT Leal, RYAN, HARRY documented in this encounterGrand Lake [facility]06-[facility] Telephone encounter Note * Telephone Encounter - Adelaide Solano RN - 04/30/2024 11:44 AM EDT Patient notified of results and provider's instructions. Patient verbalizes understanding. Adelaide Solano RN [facility]06-19-2024 Miscellaneous Notes* Telephone Encounter - Adelaide Solano RN - 04/30/2024 11:44 AM EDT Patient notified of results and provider's instructions. Patient verbalizes understanding. Adelaide Solano RN * Telephone Encounter - Merissa Ray LPN - 04/30/2024 9:30 AM EDT Attempted to reach pt by phone without success. Pt does not have voicemail set up. Try later. Merissa Ray LPN * Telephone Encounter - Merissa Ray LPN - 04/30/2024 9:29 AM EDT ----- Message from Camilo Goldberg MD sent at 04/30/2024 7:07 AM EDT ----- Urine test was negative for gonorrhea and chlamydia. Finish doxycycline course due to exposure. * Telephone Encounter - Merissa Ray LPN - 04/30/2024 9:29 AM EDT m documented in this encounterGrand Lake [facility]06-19-2024 Telephone encounter Note * Telephone Encounter - Merissa Ray LPN - 04/30/2024 9:30 AM EDT Attempted to reach pt by phone without success. Pt does not have voicemail set up. Try later. Merissa Ray LPN [facility]06-19-2024 Telephone encounter Note* Telephone Encounter - Merissa Ray LPN - 04/30/2024 9:29 AM EDT ----- Message from Camilo Goldberg MD sent at 04/30/2024 7:07 AM EDT ----- Urine test was negative for gonorrhea and chlamydia. Finish doxycycline course due to exposure. [facility]06-19-2024 Telephone encounter Note* Telephone Encounter - Merissa Ray LPN - 04/30/2024 9:29 AM EDT m [facility]2024 NoteHNO ID: [id number] Author: JONO CHAVEZ APRN.DIRECTOR OF HOTEL OPERATIONS Service: ? Author Type: Nurse Practitioner Type: Progress Notes Filed: 04/29/2024 13:41 Note Text: Subjective HPI Nontoxic-appearing male presents to urgent care requesting STD testing. States sexually active with 1 female partner. He found out recently she tested positive for chlamydia. States has had chlamydia past this feels similar. Is having some penile discharge. Denies any testicular pain swelling. Denies any other concerns. Denies any fever body aches chills productive cough chest pain shortness of breath pleuritic pain hemoptysis nausea vomiting abdominal pain change in bowel or bladder habits. Past medical history prescription medication use and allergies reviewed. .Patient presents with: STD check: STD check PAST MEDICAL HISTORY Diagnosis Date Anxiety Asthma Attention deficit disorder Bipolar disorder (HCC) Chronic lower back pain DDD (degenerative disc disease), lumbar with slipped discs Genital herpes Hepatitis C 08/2013 type 2b History of drug use disorder IV heroin and cocaine. Last use 2013 History of marijuana use Schizophrenia (HCC) Seeing Dr. Vicente Seasonal allergies Tobacco use disorder PAST SURGICAL HISTORY Procedure Laterality Date CIRCUMCISION 08/27/2009 EGD 08/17/14 meat removed from stricture EGD 08/12/2019 foreign body removal EGD FLEXIBLE FOREIGN BODY REMOVAL 04/09/07 [facility], no dilatation ESOPHAGOGASTRODUODENOSCOPY TRANSORAL DIAGNOSTIC 05/13/14 eosinophilic esophagitis,relative stricture ESOPHAGOGASTRODUODENOSCOPY TRANSORAL DIAGNOSTIC 09/30/2014 EGD ESOPHAGOGASTRODUODENOSCOPY TRANSORAL DIAGNOSTIC 06/14/2017 [facility] with foreign body removed from esophagus ESOPHAGOGASTRODUODENOSCOPY TRANSORAL DIAGNOSTIC 08/13/2017 [facility] with foreign body removal from esophagus EXC VARICOCELE/LIGATION SPERMATIC VEINS SPX 2009 TONSILLECTOMY AND ADENOIDECTOMY TUBES (SPECIFY) TM as child ALLERGIES Latex and Flexeril [Cyclobenzaprine Hcl] MEDICATIONS albuterol HFA (PROVENTIL HFA, VENTOLIN HFA) 90 mcg/actuation inhaler Inhale 2 Puffs as instructed every 4 hours as needed for wheezing/shortness of breath. cloNIDine HCl (CATAPRES) 0.1 mg tablet Take 0.1 mg by mouth twice daily. INVEGA SUSTENNA 234 mg/1.5 mL syrg injection every 6 months STRAWBERRY (Patient not taking: Reported on 02/28/2024) fluticasone (FLOVENT) 220 mcg/actuation inhaler 2 Puffs twice daily. no spacer, swallow do not inhale, rinse and swallow with water, do not eat for 30 min after (Patient not taking: Reported on 02/28/2024) varenicline (CHANTIX CONTINUING MONTH BOX) 1 mg tablet Take 1 tablet by mouth twice daily. (Patient not taking: Reported on 02/28/2024) albuterol HFA (PROVENTIL HFA, VENTOLIN HFA) 90 mcg/actuation inhaler Inhale 2 Puffs as instructed every 6 hours as needed for Wheezing/Shortness of Breath. benztropine (COGENTIN) 1 mg tablet Take 1 mg by mouth three times daily. (Patient not taking: Reported on 02/28/2024) atomoxetine 100 mg capsule Take 100 mg by mouth once daily. (Patient not taking: Reported on 03/25/2024) meloxicam (MOBIC) 15 mg tablet Take 1 tablet by mouth once daily. Take this directly following a meal (Patient not taking: Reported on 09/04/2023) paliperidone palmitate (INVEGA TRINZA INTRAMUSC.) Inject intramuscularly. (Patient not taking: Reported on 02/28/2024) tamsulosin ER (FLOMAX) 0.4 mg cap Take 1 capsule by mouth daily at bedtime. (Patient not taking: Reported on 02/28/2024) fluconazole (DIFLUCAN) 200 mg tablet Take 400mg loading dose x1 day, then 200mg daily for 14 days total. (Patient not taking: Reported on 02/28/2024) History reviewed. No pertinent family history. Social History Tobacco Use Smoking status: Every Day Packs/day: 1.00 Years: 15.00 Additional pack years: 0.00 Total pack years: 15.00 Types: Cigarettes Start date: 2001 Passive exposure: Never Smokeless tobacco: Never Tobacco comments: 1 pack Vaping Use Vaping Use: Never used Substance Use Topics Alcohol use: No Comment: None for 20 months Drug use: Yes Types: Marijuana Comment: occasional BP 152/86 Pulse 94 Temp 36.3 ?C (97.3 ?F) (Tympanic) Resp 16 Wt 84.1 kg (185 lb 6.5 oz) SpO2 97% BMI 29.04 kg/m? Review of Systems Constitutional: Negative for chills, fever and malaise/fatigue. HENT: Negative for congestion, ear discharge, ear pain, sinus pain and sore throat. Eyes: Negative for blurred vision, pain, discharge and redness. Respiratory: Negative for cough, hemoptysis, sputum production, shortness of breath, wheezing and stridor. Cardiovascular: Negative for chest pain. Gastrointestinal: Negative for abdominal pain, diarrhea, nausea and vomiting. Genitourinary: Positive for dysuria. Negative for flank pain, frequency, hematuria and urgency. Musculoskeletal: Negative for myalgias. Skin: Negative for itching and rash. Neurological: Nega (more content not included)...[facility] 04-29-[facility] History of Present illness Narrative* Jono Chavez, FOREIGN.DIRECTOR OF HOTEL OPERATIONS - 04/29/2024 1:17 PM EDT Subjective HPI Nontoxic-appearing male presents to urgent care requesting STD testing. States sexually active with1 female partner. He found out recently she tested positive for chlamydia. States has had chlamydiapast this feels similar. Is having some penile discharge. Denies any testicular pain swelling. Denies any other concerns. Denies any fever body aches chills productive cough chest pain shortness of breath pleuritic pain hemoptysis nausea vomiting abdominal pain change in bowel or bladder habits. Past medical history prescription medication use and allergies reviewed. .Patient presents with: STD check: STD check PAST MEDICAL HISTORY Diagnosis Date Anxiety Asthma Attention deficit disorder Bipolar disorder (HCC) Chronic lower back pain DDD (degenerative disc disease), lumbar with slipped discs Genital herpes Hepatitis C 08/2013 type 2b History of drug use disorder IV heroin and cocaine. Last use 2013 History of marijuana use Schizophrenia (HCC) Seeing Dr. Vicente Seasonal allergies Tobacco use disorder PAST SURGICAL HISTORY Procedure Laterality Date CIRCUMCISION 08/27/2009 EGD 08/17/14 meat removed from stricture EGD 08/12/2019 foreign body removal EGD FLEXIBLE FOREIGN BODY REMOVAL 04/09/07 [facility], no dilatation ESOPHAGOGASTRODUODENOSCOPY TRANSORAL DIAGNOSTIC 05/13/14 eosinophilic esophagitis,relative stricture ESOPHAGOGASTRODUODENOSCOPY TRANSORAL DIAGNOSTIC 09/30/2014 EGD ESOPHAGOGASTRODUODENOSCOPY TRANSORAL DIAGNOSTIC 06/14/2017 [facility] with foreign body removed from esophagus ESOPHAGOGASTRODUODENOSCOPY TRANSORAL DIAGNOSTIC 08/13/2017 [facility] with foreign body removal from esophagus EXC VARICOCELE/LIGATION SPERMATIC VEINS SPX 2009 TONSILLECTOMY & ADENOIDECTOMY <AGE 12 TUBES (SPECIFY) TM as child ALLERGIES Latex and Flexeril [Cyclobenzaprine Hcl] MEDICATIONS albuterol HFA (PROVENTIL HFA, VENTOLIN HFA) 90 mcg/actuation inhaler Inhale 2 Puffs as instructed every 4 hours as needed for wheezing/shortness of breath. cloNIDine HCl (CATAPRES) 0.1 mg tablet Take 0.1 mg by mouth twice daily. INVEGA SUSTENNA 234 mg/1.5 mL syrg injection every 6 months STRAWBERRY (Patient not taking: Reported on 02/28/2024) fluticasone (FLOVENT) 220 mcg/actuation inhaler 2 Puffs twice daily. no spacer, swallow do not inhale, rinse and swallow with water, do not eat for 30 min after (Patient not taking: Reported on 02/28/2024) varenicline (CHANTIX CONTINUING MONTH BOX) 1 mg tablet Take 1 tablet by mouth twice daily. (Patientnot taking: Reported on 02/28/2024) albuterol HFA (PROVENTIL HFA, VENTOLIN HFA) 90 mcg/actuation inhaler Inhale 2 Puffs as instructed every 6 hours as needed for Wheezing/Shortness of Breath. benztropine (COGENTIN) 1 mg tablet Take 1 mg by mouth three times daily. (Patient not taking: Reported on 02/28/2024) atomoxetine 100 mg capsule Take 100 mg by mouth once daily. (Patient not taking: Reported on 03/25/2024) meloxicam (MOBIC) 15 mg tablet Take 1 tablet by mouth once daily. Take this directly following a meal (Patient not taking: Reported on 09/04/2023) paliperidone palmitate (INVEGA TRINZA INTRAMUSC.) Inject intramuscularly. (Patient not taking: Reported on 02/28/2024) tamsulosin ER (FLOMAX) 0.4 mg cap Take 1 capsule by mouth daily at bedtime. (Patient not taking: Reported on 02/28/2024) fluconazole (DIFLUCAN) 200 mg tablet Take 400mg loading dose x1 day, then 200mg daily for 14 days total. (Patient not taking: Reported on 02/28/2024) History reviewed. No pertinent family history. Social History Tobacco Use Smoking status: Every Day Packs/day: 1.00 Years: 15.00 Additional pack years: 0.00 Total pack years: 15.00 Types: Cigarettes Start date: 2001 Passive exposure: Never Smokeless tobacco: Never Tobacco comments: 1 pack Vaping Use Vaping Use: Never used Substance Use Topics Alcohol use: No Comment: None for 20 months Drug use: Yes Types: Marijuana Comment: occasional BP 152/86 Pulse 94 Temp 36.3 C (97.3 F) (Tympanic) Resp 16 Wt 84.1 kg (185 lb 6.5 oz) SpO2 97% BMI 29.04 kg/m Review of Systems Constitutional: Negative for chills, fever and malaise/fatigue. HENT: Negative for congestion, ear discharge, ear pain, sinus pain and sore throat. Eyes: Negative for blurred vision, pain, discharge and redness. Respiratory: Negative for cough, hemoptysis, sputum production, shortness of breath, wheezing and stridor. Cardiovascular: Negative for chest pain. Gastrointestinal: Negative for abdominal pain, diarrhea, nausea and vomiting. Genitourinary: Positive for dysuria. Negative for flank pain, frequency, hematuria and urgency. Musculoskeletal: Negative for myalgias. Skin: Negative for itching and rash. Neurological: Negative for dizziness and headaches. Objective Physical Exam Vitals and nursing note reviewed. Constitutional: General: He is not in acute distress. Appearance: He is not toxic-appearing or diaphoretic. HENT: Head: Normocephalic. Jaw: No trismus. Right Ear: Hearing normal. No decreased hearing noted. No drainage, swelling or tenderness. Tympanic membrane is not perforated, erythematous or bulging. Left Ear: Hearing normal. No decreased hearing noted. No drainage, swelling or tenderness. Tympanicmembrane is not perforated, erythematous or bulging. Nose: Nose normal. Mouth/Throat: Pharynx: Uvula midline. No uvula swelling. Tonsils: No tonsillar abscesses. Eyes: Pupils: Pupils are equal, round, and reactive to light. Cardiovascular: Rate and Rhythm: Normal rate and regular rhythm. Pulses: Normal pulses. Pulmonary: Effort: Pulmonary effort is normal. No respiratory distress. Breath sounds: Normal breath sounds. Chest: Chest wall: No tenderness. Abdominal: General: Bowel sounds are normal. There is no distension. Palpations: Abdomen is soft. Abdomen is not rigid. Tenderness: There is no abdominal tenderness. There is no right CVA tenderness, left CVA tenderness, guarding or rebound. Negative signs include Webber's sign and McBurney's sign. Genitourinary: Comments: Defers examination Musculoskeletal: General: No tenderness. Cervical back: Normal range of motion. Lymphadenopathy: Head: Right side of head: No submental, submandibular, tonsillar, preauricular, posterior auricular or occipital adenopathy. Left side of head: No submental, submandibular, tonsillar, preauricular, posterior auricular or occipital adenopathy. Cervical: Right cervical: No superficial or posterior cervical adenopathy. Left cervical: No superficial or posterior cervical adenopathy. Skin: General: Skin is warm and dry. Findings: No rash. Neurological: General: No focal deficit present. Mental Status: He is alert and oriented to person, place, and time. ASSESSMENT/PLAN: 1. Screening for STD (sexually transmitted disease) - ICD9: V74.5, ICD10: Z11.3 (primary diagnosis) - GONORRHEA/CHLAMYDIA NAAT 2. STD exposure - ICD9: V01.6, ICD10: Z20.2 - UA DIP, URINE (POC) Urine dip negative. Send GC for lab. Will empirically treat with doxycycline due to positive exposure and symptoms. Risk and benefit of medication discussed. Patient was educated on supportive therapies. Patient will follow up with primary care provider as needed. Patient was instructed to immediately proceed to emergency room for any new, worsening, or symptoms lasting longer than anticipated. The patient's clinical presentation is otherwise unremarkable at this time. Based on exam and clinical finding, the patient is stable for discharge. Plan of care was discussed with patient. Patient verbalizes understanding and agrees to plan of care. This note was generated using [employer] software. It may contain errors in wording, punctuation, or spelling. Jono Chavez APRN.MARCELLA documented in this encounterGrand Lake [facility]05-[facility]24 NoteHNO ID: [id number] Author: BENEDICT BERG APRN.DIRECTOR OF HOTEL OPERATIONS Service: ? Author Type: Nurse Practitioner Type: Progress Notes Filed: 04/04/2024 16:26 Note Text: Subjective HPI HPI Josafat Alvarenga is a 38 year old male who presents today for CC of painful urination, testicular pain. This started 1 day ago. Has tried nothing for relief. Symptoms are worsened by nothing. Risk factors recently notified that current sexual partner positive for chlamydia. Denies urinary drainage or rash. .Patient presents with: STD: Chlamydia x1 day PAST MEDICAL HISTORY Diagnosis Date Anxiety Asthma Attention deficit disorder Bipolar disorder (HCC) Chronic lower back pain DDD (degenerative disc disease), lumbar with slipped discs Genital herpes Hepatitis C 08/2013 type 2b History of drug use disorder IV heroin and cocaine. Last use 2013 History of marijuana use Schizophrenia (HCC) Seeing Dr. Vicente Seasonal allergies Tobacco use disorder PAST SURGICAL HISTORY Procedure Laterality Date CIRCUMCISION 08/27/2009 EGD 08/17/14 meat removed from stricture EGD 08/12/2019 foreign body removal EGD FLEXIBLE FOREIGN BODY REMOVAL 04/09/07 [facility] ER, no dilatation ESOPHAGOGASTRODUODENOSCOPY TRANSORAL DIAGNOSTIC 05/13/14 eosinophilic esophagitis,relative stricture ESOPHAGOGASTRODUODENOSCOPY TRANSORAL DIAGNOSTIC 09/30/2014 EGD ESOPHAGOGASTRODUODENOSCOPY TRANSORAL DIAGNOSTIC 06/14/2017 [facility] ER with foreign body removed from esophagus ESOPHAGOGASTRODUODENOSCOPY TRANSORAL DIAGNOSTIC 08/13/2017 [facility] ER with foreign body removal from esophagus EXC VARICOCELE/LIGATION SPERMATIC VEINS SPX 2008 TONSILLECTOMY AND ADENOIDECTOMY TUBES (SPECIFY) TM as child ALLERGIES Latex and Flexeril [Cyclobenzaprine Hcl] MEDICATIONS albuterol HFA (PROVENTIL HFA, VENTOLIN HFA) 90 mcg/actuation inhaler Inhale 2 Puffs as instructed every 4 hours as needed for wheezing/shortness of breath. cloNIDine HCl (CATAPRES) 0.1 mg tablet Take 0.1 mg by mouth twice daily. albuterol HFA (PROVENTIL HFA, VENTOLIN HFA) 90 mcg/actuation inhaler Inhale 2 Puffs as instructed every 6 hours as needed for Wheezing/Shortness of Breath. STRAWBERRY (Patient not taking: Reported on 02/28/2024) INVEGA SUSTENNA 234 mg/1.5 mL syrg injection every 6 months fluticasone (FLOVENT) 220 mcg/actuation inhaler 2 Puffs twice daily. no spacer, swallow do not inhale, rinse and swallow with water, do not eat for 30 min after (Patient not taking: Reported on 02/28/2024) varenicline (CHANTIX CONTINUING MONTH BOX) 1 mg tablet Take 1 tablet by mouth twice daily. (Patient not taking: Reported on 02/28/2024) benztropine (COGENTIN) 1 mg tablet Take 1 mg by mouth three times daily. (Patient not taking: Reported on 02/28/2024) atomoxetine 100 mg capsule Take 100 mg by mouth once daily. (Patient not taking: Reported on 03/25/2024) meloxicam (MOBIC) 15 mg tablet Take 1 tablet by mouth once daily. Take this directly following a meal (Patient not taking: Reported on 09/04/2023) paliperidone palmitate (INVEGA TRINZA INTRAMUSC.) Inject intramuscularly. (Patient not taking: Reported on 02/28/2024) tamsulosin ER (FLOMAX) 0.4 mg cap Take 1 capsule by mouth daily at bedtime. (Patient not taking: Reported on 02/28/2024) fluconazole (DIFLUCAN) 200 mg tablet Take 400mg loading dose x1 day, then 200mg daily for 14 days total. (Patient not taking: Reported on 02/28/2024) No family history on file. Social History Tobacco Use Smoking status: Every Day Packs/day: 1.00 Years: 15.00 Additional pack years: 0.00 Total pack years: 15.00 Types: Cigarettes Start date: 2001 Passive exposure: Never Smokeless tobacco: Never Tobacco comments: 1 pack Vaping Use Vaping Use: Never used Substance Use Topics Alcohol use: No Comment: None for 20 months Drug use: Yes Types: Marijuana Comment: occasional ROS Objective Blood pressure 158/86, pulse 89, temperature 36.2 ?C (97.1 ?F), resp. rate 18, weight 84 kg (185 lb 3 oz), SpO2 97%. Physical Exam Constitutional: General: He is not in acute distress. Appearance: Normal appearance. He is not toxic-appearing. Cardiovascular: Rate and Rhythm: Normal rate and regular rhythm. Heart sounds: Normal heart sounds. Pulmonary: Effort: Pulmonary effort is normal. Breath sounds: Normal breath sounds. Abdominal: General: Bowel sounds are normal. Palpations: Abdomen is soft. Tenderness: There is no abdominal tenderness. Genitourinary: Comments: Defers Skin: General: Skin is warm and dry. ASSESSMENT/PLAN: 1. Exposure to chlamydia - ICD9: V01.6, ICD10: Z20.2 (primary diagnosis) Declines any testing, just wants treatment. - DOXYCYCLINE MONOHYDRATE 100 MG CAPSULE 2. Dysuria - ICD9: 788.1, ICD10: R30.0 Treat for chlamydia, if s/s persist will need testing/declines today. - DOXYCYCLINE MONOHYDRATE 100 MG CAPSULE Benedict Berg APRN.[facility]AOur [facility] [place] History of Present illness Narrative* Benedict Berg APRN.DIRECTOR OF HOTEL OPERATIONS - 04/04/2024 4:09 PM EDT Subjective HPI HPI Josafat Alvarenga is a 38 year old male who presents today for CC of painful urination, testicularpain. This started 1 day ago. Has tried nothing for relief. Symptoms are worsened by nothing. Risk factors recently notified that current sexual partner positive for chlamydia. Denies urinary drainage or rash. .Patient presents with: STD: Chlamydia x1 day PAST MEDICAL HISTORY Diagnosis Date Anxiety Asthma Attention deficit disorder Bipolar disorder (HCC) Chronic lower back pain DDD (degenerative disc disease), lumbar with slipped discs Genital herpes Hepatitis C 08/2013 type 2b History of drug use disorder IV heroin and cocaine. Last use 2013 History of marijuana use Schizophrenia (HCC) Seeing Dr. Vicente Seasonal allergies Tobacco use disorder PAST SURGICAL HISTORY Procedure Laterality Date CIRCUMCISION 08/27/2009 EGD 08/17/14 meat removed from stricture EGD 08/12/2019 foreign body removal EGD FLEXIBLE FOREIGN BODY REMOVAL 04/09/07 [facility] ER, no dilatation ESOPHAGOGASTRODUODENOSCOPY TRANSORAL DIAGNOSTIC 05/13/14 eosinophilic esophagitis,relative stricture ESOPHAGOGASTRODUODENOSCOPY TRANSORAL DIAGNOSTIC 09/30/2014 EGD ESOPHAGOGASTRODUODENOSCOPY TRANSORAL DIAGNOSTIC 06/14/2017 [facility] ER with foreign body removed from esophagus ESOPHAGOGASTRODUODENOSCOPY TRANSORAL DIAGNOSTIC 08/13/2017 [facility] ER with foreign body removal from esophagus EXC VARICOCELE/LIGATION SPERMATIC VEINS SPX 2009 TONSILLECTOMY & ADENOIDECTOMY <AGE 12 TUBES (SPECIFY) TM as child ALLERGIES Latex and Flexeril [Cyclobenzaprine Hcl] MEDICATIONS albuterol HFA (PROVENTIL HFA, VENTOLIN HFA) 90 mcg/actuation inhaler Inhale 2 Puffs as instructed every 4 hours as needed for wheezing/shortness of breath. cloNIDine HCl (CATAPRES) 0.1 mg tablet Take 0.1 mg by mouth twice daily. albuterol HFA (PROVENTIL HFA, VENTOLIN HFA) 90 mcg/actuation inhaler Inhale 2 Puffs as instructed every 6 hours as needed for Wheezing/Shortness of Breath. STRAWBERRY (Patient not taking: Reported on 02/28/2024) INVEGA SUSTENNA 234 mg/1.5 mL syrg injection every 6 months fluticasone (FLOVENT) 220 mcg/actuation inhaler 2 Puffs twice daily. no spacer, swallow do not inhale, rinse and swallow with water, do not eat for 30 min after (Patient not taking: Reported on 02/28/2024) varenicline (CHANTIX CONTINUING MONTH BOX) 1 mg tablet Take 1 tablet by mouth twice daily. (Patientnot taking: Reported on 02/28/2024) benztropine (COGENTIN) 1 mg tablet Take 1 mg by mouth three times daily. (Patient not taking: Reported on 02/28/2024) atomoxetine 100 mg capsule Take 100 mg by mouth once daily. (Patient not taking: Reported on 03/25/2024) meloxicam (MOBIC) 15 mg tablet Take 1 tablet by mouth once daily. Take this directly following a meal (Patient not taking: Reported on 09/04/2023) paliperidone palmitate (INVEGA TRINZA INTRAMUSC.) Inject intramuscularly. (Patient not taking: Reported on 02/28/2024) tamsulosin ER (FLOMAX) 0.4 mg cap Take 1 capsule by mouth daily at bedtime. (Patient not taking: Reported on 02/28/2024) fluconazole (DIFLUCAN) 200 mg tablet Take 400mg loading dose x1 day, then 200mg daily for 14 days total. (Patient not taking: Reported on 02/28/2024) No family history on file. Social History Tobacco Use Smoking status: Every Day Packs/day: 1.00 Years: 15.00 Additional pack years: 0.00 Total pack years: 15.00 Types: Cigarettes Start date: 2001 Passive exposure: Never Smokeless tobacco: Never Tobacco comments: 1 pack Vaping Use Vaping Use: Never used Substance Use Topics Alcohol use: No Comment: None for 20 months Drug use: Yes Types: Marijuana Comment: occasional ROS Objective Blood pressure 158/86, pulse 89, temperature 36.2 C (97.1 F), resp. rate 18, weight 84 kg (185 lb 3oz), SpO2 97%. Physical Exam Constitutional: General: He is not in acute distress. Appearance: Normal appearance. He is not toxic-appearing. Cardiovascular: Rate and Rhythm: Normal rate and regular rhythm. Heart sounds: Normal heart sounds. Pulmonary: Effort: Pulmonary effort is normal. Breath sounds: Normal breath sounds. Abdominal: General: Bowel sounds are normal. Palpations: Abdomen is soft. Tenderness: There is no abdominal tenderness. Genitourinary: Comments: Defers Skin: General: Skin is warm and dry. ASSESSMENT/PLAN: 1. Exposure to chlamydia - ICD9: V01.6, ICD10: Z20.2 (primary diagnosis) Declines any testing, just wants treatment. - DOXYCYCLINE MONOHYDRATE 100 MG CAPSULE 2. Dysuria - ICD9: 788.1, ICD10: R30.0 Treat for chlamydia, if s/s persist will need testing/declines today. - DOXYCYCLINE MONOHYDRATE 100 MG CAPSULE Benedict Berg APRN.DIRECTOR OF HOTEL OPERATIONS documented in this encounterGrand Lake [facility]05-14-2024 NoteHNO ID: [id number] Author: WINNIE KIDD PA Service: ? Author Type: Physician Networking Technician Type: Progress Notes Filed: 03/25/2024 13:02 Note Text: This note was created using [employer]. Subjective Josafat Alvarenga is a 38 year old male. HPI 38-year-old male presents for sore throat, headache, fevers, cough, congestion starting yesterday. Patient states he started getting a sore throat yesterday. He has a little bit of runny nose and cough. He has felt sweaty with chills and feverish. Has not actually taken his temperature. No vomiting or diarrhea. He states his son recently tested positive for strep. Patient does have history of asthma and feels like he is wheezing slightly. He ran out of his albuterol inhaler and is requesting a refill. PAST MEDICAL HISTORY Diagnosis Date Anxiety Asthma Attention deficit disorder Bipolar disorder (HCC) Chronic lower back pain DDD (degenerative disc disease), lumbar with slipped discs Genital herpes Hepatitis C 08/2013 type 2b History of drug use disorder IV heroin and cocaine. Last use 2013 History of marijuana use Schizophrenia (HCC) Seeing Dr. Vicente Seasonal allergies Tobacco use disorder PAST SURGICAL HISTORY Procedure Laterality Date CIRCUMCISION 08/27/2009 EGD 08/17/14 meat removed from stricture EGD 08/12/2019 foreign body removal EGD FLEXIBLE FOREIGN BODY REMOVAL 04/09/07 [facility] ER, no dilatation ESOPHAGOGASTRODUODENOSCOPY TRANSORAL DIAGNOSTIC 05/13/14 eosinophilic esophagitis,relative stricture ESOPHAGOGASTRODUODENOSCOPY TRANSORAL DIAGNOSTIC 09/30/2014 EGD ESOPHAGOGASTRODUODENOSCOPY TRANSORAL DIAGNOSTIC 06/14/2017 [facility] ER with foreign body removed from esophagus ESOPHAGOGASTRODUODENOSCOPY TRANSORAL DIAGNOSTIC 08/13/2017 [facility] ER with foreign body removal from esophagus EXC VARICOCELE/LIGATION SPERMATIC VEINS SPX 2009 TONSILLECTOMY AND ADENOIDECTOMY TUBES (SPECIFY) TM as child ALLERGIES Latex and Flexeril [Cyclobenzaprine Hcl] MEDICATIONS ibuprofen (MOTRIN) 800 mg tablet Take 1 tablet by mouth every 8 hours as needed for pain. cloNIDine HCl (CATAPRES) 0.1 mg tablet Take 0.1 mg by mouth twice daily. INVEGA SUSTENNA 234 mg/1.5 mL syrg injection every 6 months albuterol HFA (PROVENTIL HFA, VENTOLIN HFA) 90 mcg/actuation inhaler Inhale 2 Puffs as instructed every 6 hours as needed for Wheezing/Shortness of Breath. STRAWBERRY (Patient not taking: Reported on 02/28/2024) fluticasone (FLOVENT) 220 mcg/actuation inhaler 2 Puffs twice daily. no spacer, swallow do not inhale, rinse and swallow with water, do not eat for 30 min after (Patient not taking: Reported on 02/28/2024) varenicline (CHANTIX CONTINUING MONTH BOX) 1 mg tablet Take 1 tablet by mouth twice daily. (Patient not taking: Reported on 02/28/2024) benztropine (COGENTIN) 1 mg tablet Take 1 mg by mouth three times daily. (Patient not taking: Reported on 02/28/2024) atomoxetine 100 mg capsule Take 100 mg by mouth once daily. (Patient not taking: Reported on 03/25/2024) meloxicam (MOBIC) 15 mg tablet Take 1 tablet by mouth once daily. Take this directly following a meal (Patient not taking: Reported on 09/04/2023) paliperidone palmitate (INVEGA TRINZA INTRAMUSC.) Inject intramuscularly. (Patient not taking: Reported on 02/28/2024) tamsulosin ER (FLOMAX) 0.4 mg cap Take 1 capsule by mouth daily at bedtime. (Patient not taking: Reported on 02/28/2024) fluconazole (DIFLUCAN) 200 mg tablet Take 400mg loading dose x1 day, then 200mg daily for 14 days total. (Patient not taking: Reported on 02/28/2024) No family history on file. Social History Tobacco Use Smoking status: Every Day Packs/day: 1.00 Years: 15.00 Additional pack years: 0.00 Total pack years: 15.00 Types: Cigarettes Start date: 2001 Passive exposure: Never Smokeless tobacco: Never Tobacco comments: 1 pack Vaping Use Vaping Use: Never used Substance Use Topics Alcohol use: No Comment: None for 20 months Drug use: Yes Types: Marijuana Comment: occasional Review of Systems Constitutional: Positive for chills and fever. HENT: Positive for congestion and sore throat. Respiratory: Positive for cough and wheezing. Negative for shortness of breath. Gastrointestinal: Negative for diarrhea and vomiting. Objective BP 122/84 Pulse 82 Temp 36.9 ?C (98.5 ?F) Resp 16 Wt 81.8 kg (180 lb 5.4 oz) SpO2 97% BMI 28.24 kg/m? Physical Exam Vitals and nursing note reviewed. Constitutional: General: He is not in acute distress. Appearance: Normal appearance. He is not toxic-appearing. HENT: Right Ear: Tympanic membrane and ear canal normal. Left Ear: Tympanic membrane and ear canal normal. Nose: Nose normal. Mouth/Throat: Mouth: Mucous membranes are moist. Pharynx: Uvula midline. Posterior oropharyngeal erythema present. Tonsils: No tonsillar exudate. 2+ on the right. 2+ on the left. Eyes: Conjunctiva/sclera: Conjunctivae normal. Ca (more content not included)...[facility] History of Present illness Narrative* Winnie Kidd PA - 03/25/2024 12:53 PM EDT This note was created using [employer]. Subjective Josafat Alvarenga is a 38 year old male. HPI 38-year-old male presents for sore throat, headache, fevers, cough, congestion starting yesterday. Patient states he started getting a sore throat yesterday. He has a little bit of runny nose andcough. He has felt sweaty with chills and feverish. Has not actually taken his temperature. No vomiting or diarrhea. He states his son recently tested positive for strep. Patient does have history ofasthma and feels like he is wheezing slightly. He ran out of his albuterol inhaler and is requesting a refill. PAST MEDICAL HISTORY Diagnosis Date Anxiety Asthma Attention deficit disorder Bipolar disorder (HCC) Chronic lower back pain DDD (degenerative disc disease), lumbar with slipped discs Genital herpes Hepatitis C 08/2013 type 2b History of drug use disorder IV heroin and cocaine. Last use 2013 History of marijuana use Schizophrenia ([facility]) Seeing Dr. Vicente Seasonal allergies Tobacco use disorder PAST SURGICAL HISTORY Procedure Laterality Date CIRCUMCISION 08/27/2009 EGD 08/17/14 meat removed from stricture EGD 08/12/2019 foreign body removal EGD FLEXIBLE FOREIGN BODY REMOVAL 04/09/07 [facility] ER, no dilatation ESOPHAGOGASTRODUODENOSCOPY TRANSORAL DIAGNOSTIC 05/13/14 eosinophilic esophagitis,relative stricture ESOPHAGOGASTRODUODENOSCOPY TRANSORAL DIAGNOSTIC 09/30/2014 EGD ESOPHAGOGASTRODUODENOSCOPY TRANSORAL DIAGNOSTIC 06/14/2017 [facility] ER with foreign body removed from esophagus ESOPHAGOGASTRODUODENOSCOPY TRANSORAL DIAGNOSTIC 08/13/2017 [facility] ER with foreign body removal from esophagus EXC VARICOCELE/LIGATION SPERMATIC VEINS SPX 2009 TONSILLECTOMY & ADENOIDECTOMY <AGE 12 TUBES (SPECIFY) TM as child ALLERGIES Latex and Flexeril [Cyclobenzaprine Hcl] MEDICATIONS ibuprofen (MOTRIN) 800 mg tablet Take 1 tablet by mouth every 8 hours as needed for pain. cloNIDine HCl (CATAPRES) 0.1 mg tablet Take 0.1 mg by mouth twice daily. INVEGA SUSTENNA 234 mg/1.5 mL syrg injection every 6 months albuterol HFA (PROVENTIL HFA, VENTOLIN HFA) 90 mcg/actuation inhaler Inhale 2 Puffs as instructed every 6 hours as needed for Wheezing/Shortness of Breath. STRAWBERRY (Patient not taking: Reported on 02/28/2024) fluticasone (FLOVENT) 220 mcg/actuation inhaler 2 Puffs twice daily. no spacer, swallow do not inhale, rinse and swallow with water, do not eat for 30 min after (Patient not taking: Reported on 02/28/2024) varenicline (CHANTIX CONTINUING MONTH BOX) 1 mg tablet Take 1 tablet by mouth twice daily. (Patientnot taking: Reported on 02/28/2024) benztropine (COGENTIN) 1 mg tablet Take 1 mg by mouth three times daily. (Patient not taking: Reported on 02/28/2024) atomoxetine 100 mg capsule Take 100 mg by mouth once daily. (Patient not taking: Reported on 03/25/2024) meloxicam (MOBIC) 15 mg tablet Take 1 tablet by mouth once daily. Take this directly following a meal (Patient not taking: Reported on 09/04/2023) paliperidone palmitate (INVEGA TRINZA INTRAMUSC.) Inject intramuscularly. (Patient not taking: Reported on 02/28/2024) tamsulosin ER (FLOMAX) 0.4 mg cap Take 1 capsule by mouth daily at bedtime. (Patient not taking: Reported on 02/28/2024) fluconazole (DIFLUCAN) 200 mg tablet Take 400mg loading dose x1 day, then 200mg daily for 14 days total. (Patient not taking: Reported on 02/28/2024) No family history on file. Social History Tobacco Use Smoking status: Every Day Packs/day: 1.00 Years: 15.00 Additional pack years: 0.00 Total pack years: 15.00 Types: Cigarettes Start date: 2001 Passive exposure: Never Smokeless tobacco: Never Tobacco comments: 1 pack Vaping Use Vaping Use: Never used Substance Use Topics Alcohol use: No Comment: None for 20 months Drug use: Yes Types: Marijuana Comment: occasional Review of Systems Constitutional: Positive for chills and fever. HENT: Positive for congestion and sore throat. Respiratory: Positive for cough and wheezing. Negative for shortness of breath. Gastrointestinal: Negative for diarrhea and vomiting. Objective BP 122/84 Pulse 82 Temp 36.9 C (98.5 F) Resp 16 Wt 81.8 kg (180 lb 5.4 oz) SpO2 97% BMI28.24 kg/m Physical Exam Vitals and nursing note reviewed. Constitutional: General: He is not in acute distress. Appearance: Normal appearance. He is not toxic-appearing. HENT: Right Ear: Tympanic membrane and ear canal normal. Left Ear: Tympanic membrane and ear canal normal. Nose: Nose normal. Mouth/Throat: Mouth: Mucous membranes are moist. Pharynx: Uvula midline. Posterior oropharyngeal erythema present. Tonsils: No tonsillar exudate. 2+ on the right. 2+ on the left. Eyes: Conjunctiva/sclera: Conjunctivae normal. Cardiovascular: Rate and Rhythm: Normal rate and regular rhythm. Pulmonary: Effort: Pulmonary effort is normal. Breath sounds: Normal breath sounds. No wheezing, rhonchi or rales. Skin: General: Skin is warm and dry. Neurological: Mental Status: He is alert. Assessment and Plan ASSESSMENT/PLAN: 1. Sore throat - ICD9: 462, ICD10: J02.9 (primary diagnosis) - suspect viral - Group A strep molecular testing negative - Discussed supportive care treatment with fluids, rest and analgesia. - The patient may also use warm salt water gargles, throat lozenges and/or OTC throat spray as needed. - STREP A MOLECULAR (POC) 2. Mild persistent asthma without complication - ICD9: 493.90, ICD10: J45.30 -No wheezing on exam today. -Patient requesting refill of albuterol. -Rx for albuterol inhaler. Follow-up with PCP for further refills. Diagnosis and treatment plan were discussed and questions were answered to the patient's satisfaction. Pt acknowledged understanding of concepts and follow up plan. Specific signs and symptoms that would indicate the need for higher level of care were discussed in detail warranting prompt ER evaluation. GLORIA Cohn documented in this encounterGrand Lake [facility]05-03-[facility] History of Present illness Narrative* Barb Ross RDMS - 03/14/2024 10:30 AM EDT Radiology Service Progress Note PATIENT NAME: Josafat Alvarenga DATE OF SERVICE: March 14, 2024 TIME: 10:58 AM PATIENT IDENTITY VERIFICATION COMPLETED USING TWO (2) IDENTIFIERS: Name and Date of confirmedby patient verbally. FALL SCREENING: Has the patient had 2 falls in the last year or 1 fall with injury or currently using an Ambulatory Assistive Device (Walker, Cane, Wheelchair, Crutches, etc.)? No PATIENT GENDER DATA: Male PATIENT RELEVANT IMPLANT DATA REVIEWED: Not Applicable PATIENT PRESENTS WITH AN IMPLANTABLE OR ATTACHED HOURLY SIGN LANGUAGE INTERPRETER: No RADIOLOGY DEPARTMENT: Ultrasound PERIPHERAL IV DATA: Not applicable SIGNED BY: Barb Ross RDMS March 14, 2024 10:58 AM documented in this encounterGrand Lake [facility]24 NoteHNO ID: [id number] Author: BARB ROSS RDMS Service: ? Author Type: Customer Service Manager Type: Progress Notes Filed: 03/14/2024 10:59 Note Text: Radiology Service Progress Note PATIENT NAME: Josafat Alvarenga DATE OF SERVICE: March 14, 2024 TIME: 10:58 AM PATIENT IDENTITY VERIFICATION COMPLETED USING TWO (2) IDENTIFIERS: Name and Date of confirmed by patient verbally. FALL SCREENING: Has the patient had 2 falls in the last year or 1 fall with injury or currently using an Ambulatory Assistive Device (Walker, Cane, Wheelchair, Crutches, etc.)? No PATIENT GENDER DATA: Male PATIENT RELEVANT IMPLANT DATA REVIEWED: Not Applicable PATIENT PRESENTS WITH AN IMPLANTABLE OR ATTACHED HOURLY SIGN LANGUAGE INTERPRETER: No RADIOLOGY DEPARTMENT: Ultrasound PERIPHERAL IV DATA: Not applicable SIGNED BY: Barb Ross RDMS March 14, 2024 10:[facility] Telephone encounter Note* Telephone Encounter - Marsha Pitts - 03/12/2024 12:31 PM EDT Advised pt and rescheduled Marsha Pitts [facility]05-01-2024 Miscellaneous Notes* Telephone Encounter - Marsha Pitts - 03/12/2024 12:31 PM EDT Advised pt and rescheduled Marsha Pitts documented in this encounterGrand Lake [facility]05-01-2024 Telephone encounter Note * Telephone Encounter - Elsie Hare - 03/12/2024 8:50 AM EDT Tried calling pt, voicemail full. Sent mychart message to let him know about needing US first and then appt. Asked him to call me back. Elsie QURESHI [facility]05-01-2024 Miscellaneous Notes* Telephone Encounter - Elsie Hare - 03/12/2024 8:50 AM EDT Tried calling pt, voicemail full. Sent mychart message to let him know about needing US first and then appt. Asked him to call me back. Elsie QURESHI * Telephone Encounter - Sonia Kramer PA-C - 03/12/2024 7:28 AM EDT Please call pt, scheduled with me today, needs to have scrotal us, order in epic, ok to hold on appt until we get scrotal us. Sonia Kramer PA-C documented in this encounterGrand Lake [facility]05-01-2024 Telephone encounter Note * Telephone Encounter - Sonia Kramer PA-C - 03/12/2024 7:28 AM EDT Please call pt, scheduled with me today, needs to have scrotal us, order in epic, ok to hold on appt until we get scrotal us. Sonia Kramer PA-C [facility]04-18-2024 NoteHNO ID: [id number] Author: SONIA KRAMER PA-C Service: ? Author Type: Physician Networking Technician Type: Progress Notes Filed: 02/28/2024 10:35 Note Text: ESTABLISHED PATIENT OFFICE VISIT HISTORY OF PRESENT ILLNESS: Josafat Alvarenga is a 38 year old male, Ht 170.2 cm (5' 7) BMI 28.42 kg/m2 with a PMH significant for testicle pain. Pt with history of varicocelectomy and vasectomy. Pt states pain started a few weeks ago, pain in both tesicles, but left worse than right. No voiding issues. . LAB: Creatinine Date Value Ref Range Status 10/20/2019 0.89 0.73 - 1.22 mg/dL Final 10/20/2019 0.89 0.73 - 1.22 mg/dL Final No results found for: PSA No results found for: UGLUC, UBILI, UKET, SPGR, UHB, UPH, UPROT, UROBIL, NITRITES, UWBC, UCOLAP MEDICATIONS: cloNIDine HCl (CATAPRES) 0.1 mg tablet Take 0.1 mg by mouth twice daily. INVEGA SUSTENNA 234 mg/1.5 mL syrg injection once every month. albuterol HFA (PROVENTIL HFA, VENTOLIN HFA) 90 mcg/actuation inhaler Inhale 2 Puffs as instructed every 6 hours as needed for Wheezing/Shortness of Breath. atomoxetine 100 mg capsule Take 100 mg by mouth once daily. sulfamethoxazole-trimethoprim (BACTRIM DS) 800-160 mg per tablet Take 1 tablet by mouth two times a day for 10 days. ibuprofen (MOTRIN) 800 mg tablet Take 1 tablet by mouth every 8 hours as needed for pain. STRAWBERRY (Patient not taking: Reported on 02/28/2024) fluticasone (FLOVENT) 220 mcg/actuation inhaler 2 Puffs twice daily. no spacer, swallow do not inhale, rinse and swallow with water, do not eat for 30 min after (Patient not taking: Reported on 02/28/2024) varenicline (CHANTIX STARTING MONTH BOX) 0.5 mg (11)- 1 mg (42) tablet Take 1 tablet (0.5 mg) by mouth once daily for 3 days, then 1 tablet (0.5 mg) twice daily for 4 days, then one tablet (1 mg) twice daily. varenicline (CHANTIX CONTINUING MONTH BOX) 1 mg tablet Take 1 tablet by mouth twice daily. (Patient not taking: Reported on 02/28/2024) benztropine (COGENTIN) 1 mg tablet Take 1 mg by mouth three times daily. (Patient not taking: Reported on 02/28/2024) meloxicam (MOBIC) 15 mg tablet Take 1 tablet by mouth once daily. Take this directly following a meal (Patient not taking: Reported on 09/04/2023) paliperidone palmitate (INVEGA TRINZA INTRAMUSC.) Inject intramuscularly. (Patient not taking: Reported on 02/28/2024) tamsulosin ER (FLOMAX) 0.4 mg cap Take 1 capsule by mouth daily at bedtime. (Patient not taking: Reported on 02/28/2024) fluconazole (DIFLUCAN) 200 mg tablet Take 400mg loading dose x1 day, then 200mg daily for 14 days total. (Patient not taking: Reported on 02/28/2024) Review of Systems HISTORIES PAST MEDICAL HISTORY Diagnosis Date Anxiety Asthma Attention deficit disorder Bipolar disorder (HCC) Chronic lower back pain DDD (degenerative disc disease), lumbar with slipped discs Genital herpes Hepatitis C 08/2013 type 2b History of drug use disorder IV heroin and cocaine. Last use 2013 History of marijuana use Schizophrenia (HCC) Seeing Dr. Vicente Seasonal allergies Tobacco use disorder No family history on file. Social History Tobacco Use Smoking status: Every Day Packs/day: 1.00 Years: 15.00 Additional pack years: 0.00 Total pack years: 15.00 Types: Cigarettes Start date: 2001 Passive exposure: Never Smokeless tobacco: Never Tobacco comments: 1 pack Vaping Use Vaping Use: Never used Substance Use Topics Alcohol use: No Comment: None for 20 months Drug use: Yes Types: Marijuana Comment: occasional PHYSICAL EXAMINATION GENERAL APPEARANCE: Well appearing, alert, in no acute distress, well-hydrated, well nourished. Genitourinary: MALE EXAM: no torsion, scrotal skin normal, tender on palpation of bilateral epididymis, L > R. ASSESSMENT/PLAN: 1. Pain in testicle, unspecified laterality [N50.819] - ICD9: 608.9, ICD10: N50.819 Bactrim Ice and elevate ibuprofen Sonia Kramer PA-C I spent a total of 20 minutes on the date of the service which included preparing to see the patient, [id number] patient care, completing clinical documentation, obtaining and/or reviewing separately obtained history, performing a medically appropriate examination, and ordering medications, tests, or procedures.[facility]04-18-2024 History of Present illness Narrative* Sonia Kramer PA-C - 02/28/2024 10:26 AM EDT ESTABLISHED PATIENT OFFICE VISIT HISTORY OF PRESENT ILLNESS: Josafat Avlarenga is a 38 year old male, Ht 170.2 cm (5' 7) BMI 28.42 kg/m2 with a PMH significant for testicle pain. Pt with history of varicocelectomy and vasectomy. Pt states pain started a few weeks ago, pain in both tesicles, but left worse than right. No voiding issues. . LAB: Creatinine Date Value Ref Range Status 10/20/2019 0.89 0.73 - 1.22 mg/dL Final 10/20/2019 0.89 0.73 - 1.22 mg/dL Final No results found for: PSA No results found for: UGLUC, UBILI, UKET, SPGR, UHB, UPH, UPROT, UROBIL, NITRITES, UWBC, UCOLAP MEDICATIONS: cloNIDine HCl (CATAPRES) 0.1 mg tablet Take 0.1 mg by mouth twice daily. INVEGA SUSTENNA 234 mg/1.5 mL syrg injection once every month. albuterol HFA (PROVENTIL HFA, VENTOLIN HFA) 90 mcg/actuation inhaler Inhale 2 Puffs as instructed every 6 hours as needed for Wheezing/Shortness of Breath. atomoxetine 100 mg capsule Take 100 mg by mouth once daily. sulfamethoxazole-trimethoprim (BACTRIM DS) 800-160 mg per tablet Take 1 tablet by mouth two times aday for 10 days. ibuprofen (MOTRIN) 800 mg tablet Take 1 tablet by mouth every 8 hours as needed for pain. STRAWBERRY (Patient not taking: Reported on 02/28/2024) fluticasone (FLOVENT) 220 mcg/actuation inhaler 2 Puffs twice daily. no spacer, swallow do not inhale, rinse and swallow with water, do not eat for 30 min after (Patient not taking: Reported on 02/28/2024) varenicline (CHANTIX STARTING MONTH BOX) 0.5 mg (11)- 1 mg (42) tablet Take 1 tablet (0.5 mg) by mouth once daily for 3 days, then 1 tablet (0.5 mg) twice daily for 4 days, then one tablet (1 mg) twice daily. varenicline (CHANTIX CONTINUING MONTH BOX) 1 mg tablet Take 1 tablet by mouth twice daily. (Patientnot taking: Reported on 02/28/2024) benztropine (COGENTIN) 1 mg tablet Take 1 mg by mouth three times daily. (Patient not taking: Reported on 02/28/2024) meloxicam (MOBIC) 15 mg tablet Take 1 tablet by mouth once daily. Take this directly following a meal (Patient not taking: Reported on 09/04/2023) paliperidone palmitate (INVEGA TRINZA INTRAMUSC.) Inject intramuscularly. (Patient not taking: Reported on 02/28/2024) tamsulosin ER (FLOMAX) 0.4 mg cap Take 1 capsule by mouth daily at bedtime. (Patient not taking: Reported on 02/28/2024) fluconazole (DIFLUCAN) 200 mg tablet Take 400mg loading dose x1 day, then 200mg daily for 14 days total. (Patient not taking: Reported on 02/28/2024) Review of Systems HISTORIES PAST MEDICAL HISTORY Diagnosis Date Anxiety Asthma Attention deficit disorder Bipolar disorder (HCC) Chronic lower back pain DDD (degenerative disc disease), lumbar with slipped discs Genital herpes Hepatitis C 08/2013 type 2b History of drug use disorder IV heroin and cocaine. Last use 2013 History of marijuana use Schizophrenia (HCC) Seeing Dr. Vicente Seasonal allergies Tobacco use disorder No family history on file. Social History Tobacco Use Smoking status: Every Day Packs/day: 1.00 Years: 15.00 Additional pack years: 0.00 Total pack years: 15.00 Types: Cigarettes Start date: 2001 Passive exposure: Never Smokeless tobacco: Never Tobacco comments: 1 pack Vaping Use Vaping Use: Never used Substance Use Topics Alcohol use: No Comment: None for 20 months Drug use: Yes Types: Marijuana Comment: occasional PHYSICAL EXAMINATION GENERAL APPEARANCE: Well appearing, alert, in no acute distress, well-hydrated, well nourished. Genitourinary: MALE EXAM: no torsion, scrotal skin normal, tender on palpation of bilateral epididymis, L > R. ASSESSMENT/PLAN: 1. Pain in testicle, unspecified laterality [N50.819] - ICD9: 608.9, ICD10: N50.819 Bactrim Ice and elevate ibuprofen Sonia Kramer PA-C I spent a total of 20 minutes on the date of the service which included preparing to see the patient, [id number] patient care, completing clinical documentation, obtaining and/or reviewing separately obtained history, performing a medically appropriate examination, and ordering medications, tests, or procedures. documented in this encounterGrand [facility]03-22-2024 History of Present illness Narrative* Arslanannabelladamian Des, FOREIGN.DIRECTOR OF HOTEL OPERATIONS - 02/01/2024 1:51 PM EDT This note was created using RAREFORMter. Subjective Josafat Alvarenga is a 38 year old male. HPI Pt complains of pain in right testicle that started a few days ago. No injuries. Pt had a vasectomyabout two months ago. Review of Systems Constitutional: Negative for fever. Gastrointestinal: Negative for nausea and vomiting. Genitourinary: Positive for testicular pain. Negative for decreased urine volume, difficulty urinating, dysuria, penile discharge and urgency. All other systems reviewed and are negative. Objective BP 123/77 Pulse 91 Temp 36.9 C (98.5 F) Resp 18 Wt 82.3 kg (181 lb 7 oz) SpO2 98% BMI 28.42 kg/m Physical Exam Vitals and nursing note reviewed. Constitutional: General: He is not in acute distress. Appearance: Normal appearance. He is not ill-appearing. HENT: Head: Normocephalic. Mouth/Throat: Mouth: Mucous membranes are moist. Eyes: Conjunctiva/sclera: Conjunctivae normal. Cardiovascular: Rate and Rhythm: Normal rate and regular rhythm. Pulmonary: Effort: Pulmonary effort is normal. Breath sounds: Normal breath sounds. Genitourinary: Comments: Normal external genitalia. High riding right testicle. No drainage noted. Painful right testicle with palpation and elevation. Positive cremasteric reflex bilaterally. Musculoskeletal: General: Normal range of motion. Cervical back: Normal range of motion. Skin: General: Skin is warm and dry. Neurological: General: No focal deficit present. Mental Status: He is alert. Psychiatric: Mood and Affect: Mood normal. Behavior: Behavior normal. Assessment and Plan ASSESSMENT/PLAN: 1. Testicular pain, right - ICD9: 608.9, ICD10: N50.811 As pt has recent onset of testicular pain I explained that I could not rule out testicular torsion,pt referred to ER Des Coffman APRN.DIRECTOR OF HOTEL OPERATIONS documented in this encounterGrand [facility]10-24-2023 History of Present illness Narrative* Justus Bean Jr., MD - 09/04/2023 8:50 AM EDT NEW PATIENT HISTORY AND PHYSICAL EXAM PATIENT INFO: Josafat Alvarenga 38 year old REFERRING PROVIDER: CARMEN DENNY ALY MOHAMED (HISTORIC) NO PCP PCP: Emmanuel Gonzalez MD HPI Josafat Alvarenga is a 38 year old male presents with 2 children who now desires to pursue vasectomy as a means of permanent sterilization. Together we reviewed the vasectomy procedure and potential risks (bleeding/hematoma, infection, chronic pain, and failure). He verbalized an excellent understanding of this, and of the irreversibility of the procedure. He also verbalized an understanding of the need to continue his current mode of contraception until we can confirm surgical azoospermia with post-procedure semenalysis at 3 months. Understands 0.1% risk of recanalization. Understands need for activity restriction for 72 hours after procedure. He is electing to proceed with vasectomy. Review of Systems Constitutional: Negative. Respiratory: Negative. Cardiovascular: Negative. Gastrointestinal: Negative. Genitourinary: Negative. Skin: Negative. Neurological: Negative. Psychiatric/Behavioral: Negative. LAB: Creatinine Date Value Ref Range Status 10/20/2019 0.89 0.73 - 1.22 mg/dL Final 10/20/2019 0.89 0.73 - 1.22 mg/dL Final No results found for: PSA No results found for: UGLUC, UBILI, UKET, SPGR, UHB, UPH, UPROT, UROBIL, NITRITES, UWBC, UCOLAP MEDICATIONS: STRAWBERRY cloNIDine HCl (CATAPRES) 0.1 mg tablet Take 0.1 mg by mouth twice daily. INVEGA SUSTENNA 234 mg/1.5 mL syrg injection once every month. fluticasone (FLOVENT) 220 mcg/actuation inhaler 2 Puffs twice daily. no spacer, swallow do not inhale, rinse and swallow with water, do not eat for 30 min after varenicline (CHANTIX STARTING MONTH BOX) 0.5 mg (11)- 1 mg (42) tablet Take 1 tablet (0.5 mg) by mouth once daily for 3 days, then 1 tablet (0.5 mg) twice daily for 4 days, then one tablet (1 mg) twice daily. varenicline (CHANTIX CONTINUING MONTH BOX) 1 mg tablet Take 1 tablet by mouth twice daily. albuterol HFA (PROVENTIL HFA, VENTOLIN HFA) 90 mcg/actuation inhaler Inhale 2 Puffs as instructed every 6 hours as needed for Wheezing/Shortness of Breath. benztropine (COGENTIN) 1 mg tablet Take 1 mg by mouth three times daily. atomoxetine 100 mg capsule Take 100 mg by mouth once daily. paliperidone palmitate (INVEGA TRINZA INTRAMUSC.) Inject intramuscularly. tamsulosin ER (FLOMAX) 0.4 mg cap Take 1 capsule by mouth daily at bedtime. fluconazole (DIFLUCAN) 200 mg tablet Take 400mg loading dose x1 day, then 200mg daily for 14 days total. meloxicam (MOBIC) 15 mg tablet Take 1 tablet by mouth once daily. Take this directly following a meal (Patient not taking: Reported on 09/04/2023) HISTORIES PAST MEDICAL HISTORY Diagnosis Date Anxiety Asthma Attention deficit disorder Bipolar disorder (HCC) Chronic lower back pain DDD (degenerative disc disease), lumbar with slipped discs Genital herpes Hepatitis C 08/2013 type 2b History of drug use disorder IV heroin and cocaine. Last use 2013 History of marijuana use Quit 10/2016 Schizophrenia ([facility]) Seeing Dr. Vicente Seasonal allergies Tobacco use disorder Unspecified asthma, with status asthmaticus hospitalized once History reviewed. No pertinent family history. SOCIAL HISTORY Social History Tobacco Use Smoking status: Every Day Packs/day: 1.00 Years: 15.00 Additional pack years: 0.00 Total pack years: 15.00 Types: Cigarettes Start date: 2001 Passive exposure: Never Smokeless tobacco: Never Tobacco comments: 1 pack Vaping Use Vaping Use: Never used Substance Use Topics Alcohol use: No Comment: None for 20 months Drug use: No Comment: None for 20 months PHYSICAL EXAMINATION There were no vitals taken for this visit. General appearance: Well appearing, alert, in no acute distress, and well- hydrated, well nourished Skin: Skin color, texture, turgor normal, no suspicious rashes or lesions Respiratory:+ effort Cardiovascular: Not examined GI: Normal abdominal exam, Abdomen soft, non-tender. No masses, organomegaly Musculoskeletal: normal ROM Neuro: No gross neurologic defecits Genitourinary: not examined ASSESSMENT: (Z30.2) Encounter for sterilization (primary encounter diagnosis) PLAN: Vasectomy in OR Justus Bean Jr, MD documented in this encounterGrand Lake Joint [facility]09-29-2023 History of Present illness Narrative* Theresa Terry MD - 08/10/2023 8:56 AM EDT Error documented in this encounterGrand Lake Joint [facility]09-12-2023 Miscellaneous Notes* Telephone Encounter - Theresa Terry MD - 07/24/2023 8:30 AM EDT Patient cancelled surgery AM of surgery documented in this encounterGrand Lake Joint [facility]06-21-2023 Miscellaneous Notes* Telephone Encounter - Roro Mednoza LPN - 05/02/2023 12:05 PM EDT Called patient. Verified name and date of . Informed of results/orders- verbalizes understanding. Roro Mendoza LPN * Telephone Encounter - Roro Mendoza LPN - 05/02/2023 12:04 PM EDT ----- Message from Fauzia Sorenson PA-C sent at 05/02/2023 10:46 AM EDT ----- Patient has a finding of testicular microcalcification's, there is no specific concern at this timebut thee have been concerns raised over the years that they may be precursors to testicular cancer and therefore recommended by radiology to have a repeat US in 6 months, new US order [facility], [place] DAV[place] documented in this encounterGrand Lake Joint [facility]06-19-2023 History of Present illness Narrative* Barb Ross RDMS - 04/30/2023 4:00 PM EDT Radiology Service Progress Note PATIENT NAME: Josafat Alvarenga DATE OF SERVICE: April 30, 2023 TIME: 4:26 PM PATIENT IDENTITY VERIFICATION COMPLETED USING TWO (2) IDENTIFIERS: Name and Date of confirmedby patient verbally. FALL SCREENING: Has the patient had 2 falls in the last year or 1 fall with injury or currently using an Ambulatory Assistive Device (Walker, Cane, Wheelchair, Crutches, etc.)? No PATIENT GENDER DATA: Male PATIENT RELEVANT IMPLANT DATA REVIEWED: Not Applicable RADIOLOGY DEPARTMENT: Ultrasound PERIPHERAL IV DATA: Not applicable SIGNED BY: Barb Ross RDMS April 30, 2023 4:26 PM documented in this encounterGrand Lake Joint [facility]06-16-2023 Miscellaneous Notes* Telephone Encounter - Maria De Jesus Rodas - 04/27/2023 3:08 PM EDT Pt confirmed his appt with Dr. Terry in [place] ofc 06/01/23 @ 2:30. Cintia documented in this encounterGrand Lake Joint [facility]06-16-2023 History of Present illness Narrative* Fauzia Sorenson PA-C - 04/27/2023 1:52 PM EDT Images from the original note were not included. [facility] NEW CONSULT PATIENT CLINIC NOTE SERVICE DATE: 04/27/2023 SERVICE TIME: 1:53 PM NAME: Josafat Alvarenga CHIEF COMPLAINT: Hematospermia and long Standing bilateral Orchialgia HISTORY OF PRESENT ILLNESS: Josafat Alvarenga is a 37 year old male with PMH including Varicocelectomy presenting for New Patient Consult for Hematospermia and long Standing bilateral Orchialgia The patient reports out of no where he ejaculated blood in the semen, and continues to have bilateral testicle pain, this has been going on years He has had a Varicocelectomy for pain 2009. With out any pain relief LUTS: No Other symptoms: ED - yes LABS: No results found for: TESTOST No results found for: TESTFREE No results found for: PSA Hematocrit (%) Date Value 10/20/2019 48.2 11/02/2015 48.5 02/24/2014 45.5 No results found for: PSA Creatinine Date Value Ref Range Status 10/20/2019 0.89 0.73 - 1.22 mg/dL Final 10/20/2019 0.89 0.73 - 1.22 mg/dL Final 11/02/2015 0.92 0.70 - 1.40 mg/dL Final 11/02/2015 0.87 0.70 - 1.40 mg/dL Final MEDICATIONS: cloNIDine HCl (CATAPRES) 0.1 mg tablet Take 0.1 mg by mouth twice daily. INVEGA SUSTENNA 234 mg/1.5 mL syrg injection once every month. albuterol HFA (PROVENTIL HFA, VENTOLIN HFA) 90 mcg/actuation inhaler Inhale 2 Puffs as instructed every 6 hours as needed for Wheezing/Shortness of Breath. benztropine (COGENTIN) 1 mg tablet Take 1 mg by mouth three times daily. atomoxetine 100 mg capsule Take 100 mg by mouth once daily. fluticasone (FLOVENT) 220 mcg/actuation inhaler 2 Puffs twice daily. no spacer, swallow do not inhale, rinse and swallow with water, do not eat for 30 min after (Patient not taking: Reported on 04/27/2023) varenicline (CHANTIX STARTING MONTH BOX) 0.5 mg (11)- 1 mg (42) tablet Take 1 tablet (0.5 mg) by mouth once daily for 3 days, then 1 tablet (0.5 mg) twice daily for 4 days, then one tablet (1 mg) twice daily. (Patient not taking: Reported on 04/27/2023) varenicline (CHANTIX CONTINUING MONTH BOX) 1 mg tablet Take 1 tablet by mouth twice daily. (Patientnot taking: Reported on 04/27/2023) meloxicam (MOBIC) 15 mg tablet Take 1 tablet by mouth once daily. Take this directly following a meal (Patient not taking: Reported on 04/27/2023) paliperidone palmitate (INVEGA TRINZA INTRAMUSC.) Inject intramuscularly. tamsulosin ER (FLOMAX) 0.4 mg cap Take 1 capsule by mouth daily at bedtime. (Patient not taking: Nosig reported) fluconazole (DIFLUCAN) 200 mg tablet Take 400mg loading dose x1 day, then 200mg daily for 14 days total. (Patient not taking: No sig reported) PAST MEDICAL HISTORY: PAST MEDICAL HISTORY Diagnosis Date Anxiety Asthma Attention deficit disorder Bipolar disorder (HCC) Chronic lower back pain DDD (degenerative disc disease), lumbar with slipped discs Genital herpes Hepatitis C 08/2013 type 2b History of drug use disorder IV heroin and cocaine. Last use 2013 History of marijuana use Quit 10/2016 Schizophrenia ([facility]) Seeing Dr. Vicente Seasonal allergies Tobacco use disorder Unspecified asthma, with status asthmaticus hospitalized once PAST SURGICAL HISTORY: PAST SURGICAL HISTORY Procedure Laterality Date CIRCUMCISION 08/27/2009 EGD 08/17/14 meat removed from stricture EGD 08/12/2019 foreign body removal EGD W/O OR W/BRUSH/WASH 05/13/14 eosinophilic esophagitis,relative stricture EGD W/O OR W/BRUSH/WASH 09/30/2014 EGD EGD W/O OR W/BRUSH/WASH 06/14/2017 [facility] ER with foreign body removed from esophagus EGD W/O OR W/BRUSH/WASH 08/13/2017 [facility] ER with foreign body removal from esophagus EGD W/REM FB STOMACH/DUOD 04/09/07 [facility] ER, no dilatation EXCISE VARICOCELE 2009 REMOVE TONSILS/ADENOIDS,<12 Y/O TUBES (SPECIFY) TM as child FAMILY HISTORY: No family history on file. SOCIAL HISTORY: Social Connections: Not on file REVIEW OF SYSTEMS: GENERAL: No fever, chills, weight loss, or fatigue. ENMT: Negative CARDIOVASCULAR:NO CHEST PAIN, PALPITATIONS, ANKLE EDEMA RESPIRATORY: No chronic cough, wheezing, dyspnea, hemoptysis. GENITOURINARY: SEE HPI MUSCULOSKELETAL:NO CHRONIC BACK PAIN, ARTHRITIS, CHRONIC NECK PAIN SKIN: NO VARICOSE VEINS, RASH, ABNORMAL ITCHING HEME/LYMPH/IMMUNE:Negative for prolonged bleeding, bruising easily or swollen nodes NEUROLOGICAL: NO HEADACHES, NUMBNESS, SEIZURES, STROKE DIABETES: No All other systems reviewed and are negative PHYSICAL EXAMINATION: Blood pressure 112/78, pulse 88, weight 82.1 kg (181 lb), SpO2 94 %. GENERAL: WNL nutrition, no deformities, healthy appearing NEURO: Awake, alert and oriented x 3 and Normal gait PSYCH: No signs of depression, anxiety, or agitation ENMT (Ear, Nose, Mouth, Throat): No masses, adenopathy, icterus. Thyroid nonpalpable RESP: NL effort, no retractions or purse-lip breathing. CV: No extremity swelling, varices, edema, pallor, erythema GASTROINTESTINAL: Soft, nontender, nondistended, no masses. HERNIAS: None SKIN: No rash, lesions No palpable lymphadenopathy MUSCULOSKELETAL: Extremities normal. No deformities, edema, clubbing or skin discoloration. PROBLEM LIST REVIEW: Yes LABS: Results for orders placed or performed in visit on 04/27/23 UA DIP, URINE (POC) Result Value Ref Range GLUCOSE UA (POCT) Negative Negative mg/dL BILIRUBIN UA (POCT) Negative Negative KETONE UA (POCT) Negative Negative mg/dL SPECIFIC GRAVITY UA (POCT) 1.010 1.005 - 1.030 HEMOGLOBIN/BLOOD UA (POCT) Negative Negative PH UA (POCT) 5.5 4.5 - 8.0 PROTEIN UA (POCT) Negative Negative mg/dL UROBILINOGEN UA (POCT) 0.2 Normal E.U./dL NITRITE UA (POCT) Negative Negative LEUKOCYTES UA (POCT) Negative Negative COLOR UA (POCT) Yellow CLARITY UA (POCT) Clear IMAGING: Scrotum US - pending IMPRESSION/PLAN: 37 year old male with 1. Blood in semen - ICD9: 608.82, ICD10: R36.1 (primary diagnosis) 2. Pain in both testicles - ICD9: 608.9, ICD10: N50.811, N50.812 3. 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 VINCENT Leal, RYAN, HARRY documented in this encounter[facility] Emergency department Note* Justus Muñoz DIRECTOR OF HOTEL OPERATIONS - 04/10/2023 9:15 PM EDT Emergency Department Report [facility] EMERGENCY MEDICINE Service Date:.04/10/23 PCP: Shyam Harrison Chief Complaint: Chief Complaint Patient presents with Flank Pain Right sided flank pain that started a few hours ago after he got done eating HPI Josafat Alvarenga is a 37 y.o. male presents to the ED today due to acute onset right lower quadrant pain that started approximately 35-40 minutes ago. He finished eating. He denies any nausea vomiting ordiarrhea. He denies any urinary symptoms. Nothing makes his symptoms better or worse. Review of Systems: Review of Systems Constitutional: Negative. HENT: Negative. Eyes: Negative. Negative for discharge. Respiratory: Negative. Negative for apnea. Cardiovascular: Negative for leg swelling. Gastrointestinal: Positive for abdominal pain. Negative for abdominal distention. Musculoskeletal: Negative. Negative for gait problem. Skin: Negative. Negative for color change. Neurological: Negative. Psychiatric/Behavioral: Negative. Negative for agitation. All other systems reviewed and are negative. Past Medical History: Past Medical History: Diagnosis Date ADHD Asthma Schizophrenia Past Surgical History: Past Surgical History: Procedure Laterality Date EXCISION VARICOCELE ABDOMINAL APPROACH 2014 Allergies: Allergies Allergen Reactions Flexeril [Cyclobenzaprine] Anaphylaxis Latex Anaphylaxis Medications: Patient's Medications New Prescriptions No medications on file Previous Medications ALBUTEROL 108 (90 BASE) MCG/ACT AERO SOLN INHALER Inhale 2 puffs every 4 hours as needed for Wheezing. ATOMOXETINE 100 MG CAPSULE Take 1 capsule by mouth daily. BENZTROPINE 2 MG TABLET Take 1 tablet by mouth 3 times daily. CLONIDINE 0.1 MG TABLET Take 1 tablet by mouth 2 times daily. DIPHENHYDRAMINE 12.5 MG/5ML ELIXIR Take 20 mL by mouth daily. INVEGA SUSTENNA 234 MG/1.5ML SUSPENSION PREFILLED SYRINGE INJECTION Modified Medications No medications on file Discontinued Medications No medications on file Family History: History reviewed. No pertinent family history. Social History: Social History Socioeconomic History Marital status: Single Spouse name: Not on file Number of children: Not on file Years of education: Not on file Highest education level: Not on file Occupational History Not on file Tobacco Use Smoking status: Every Day Packs/day: 0.50 Years: 15.00 Pack years: 7.50 Types: Cigarettes Smokeless tobacco: Never Vaping Use Vaping Use: Never used Substance and Sexual Activity Alcohol use: No Drug use: Not Currently Types: Marijuana Sexual activity: Yes Partners: Female Other Topics Concern Not on file Social History Narrative Not on file Social Determinants of Health Financial Resource Strain: Not on file Food Insecurity: Not on file Transportation Needs: Not on file Physical Activity: Not on file Stress: Not on file Social Connections: Not on file Intimate Partner Violence: Not on file Housing Stability: Not on file Physical Exam: Physical Exam Vitals and nursing note reviewed. Constitutional: Appearance: Normal appearance. He is not ill-appearing. HENT: Head: Normocephalic. Right Ear: External ear normal. Left Ear: External ear normal. Nose: Nose normal. Mouth/Throat: Mouth: Mucous membranes are moist. Eyes: Pupils: Pupils are equal, round, and reactive to light. Cardiovascular: Rate and Rhythm: Normal rate. Pulmonary: Effort: Pulmonary effort is normal. Abdominal: General: There is no distension. Comments: I can not elicit any discomfort to the right upper right lower quadrant. It is more flankpain in the absence of CVA tenderness. Musculoskeletal: General: Normal range of motion. Cervical back: Normal range of motion. Skin: General: Skin is warm and dry. Capillary Refill: Capillary refill takes less than 2 seconds. Neurological: General: No focal deficit present. Mental Status: He is alert and oriented to person, place, and time. Psychiatric: Behavior: Behavior normal. Vital Signs During ED Visit Patient Vitals for the past 24 hrs: BP Temp Temp src Pulse Resp SpO2 Height 05/30/23 2033 137/88 -- -- 79 20 99 % -- 04/10/232018 -- -- -- 90 20 99 % -- 04/10/231934 -- -- -- -- -- -- 1.702 m (5' 7) 04/10/231933 (!) 151/96 97.7 F (36.5 C) Oral 96 20 97 % -- Orders/Results: Orders Placed This Encounter URINE CULTURE CT ABDOMEN/PELVIS WITHOUT CONTRAST Sodium chloride 0.9% IV solution 1,000 mL Ketorolac (TORADOL) injection 15 mg Morphine sulfate (PF) injection 4 mg Ondansetron 4mg/2ml (ZOFRAN) injection 4 mg URINALYSIS, MACRO URINE MICROSCOPIC Results for orders placed or performed during the hospital encounter of 04/10/23 URINALYSIS, MACRO Result Value Ref Range COLOR, URINE YELLOW YELLOW APPEARANCE, URINE CLEAR CLEAR Specific [place], Urine 1.010 1.010 - 1.025 PH URINE 8.5 (H) 5.0 - 7.0 PROTEIN, URINE NEGATIVE NEGATIVE mg/dl GLUCOSE, URINE NEGATIVE NEGATIVE mg/dl KETONES, URINE NEGATIVE NEGATIVE mg/dl BILIRUBIN, URINE NEGATIVE NEGATIVE BLOOD, URINE DIPSTICK NEGATIVE NEGATIVE NITRITES, URINE NEGATIVE NEGATIVE UROBILINOGEN, URINE 0.2 0.2 - 1.0 E.U./dL LEUKOCYTE ESTERASE, URINE TRACE (A) NEGATIVE URINE MICROSCOPIC Result Value Ref Range WBC, URINE 1 TO 5 NEGATIVE /HPF RBC, URINE NEGATIVE NEGATIVE /HPF Epithelial Cells UA 1 TO 5 /HPF Mucus NEGATIVE NEGATIVE BACTERIA, URINE TRACE (A) NEGATIVE CRYSTALS, URINE NONE NONE CASTS, URINE NONE NONE /LPF COMMENT, URINE REFLEX CULTURE PER ESTABLISHED CRITERIA. Radiographic Imaging CT ABDOMEN/PELVIS WITHOUT CONTRAST Final Result IMPRESSION: 1. No acute findings in the abdomen or pelvis. 2. 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 3. Small fat-containing umbilical hernia. Procedures: Procedures Medications Ordered/Given During ED Visit Medications Sodium chloride 0.9% IV solution 1,000 mL (1,000 mL Intravenous $$New Bag$$ 04/10/232014) Ketorolac (TORADOL) injection 15 mg (15 mg Intravenous Given 04/10/232015) Morphine sulfate (PF) injection 4 mg (4 mg Intravenous Given 04/10/232015) Ondansetron 4mg/2ml (ZOFRAN) injection 4 mg (4 mg Intravenous Given 04/10/232015) Medical Decision Making Patient was given some ketorolac and morphine in the emergency room on with Zofran. He received a Lof IV fluids. I reassessed him prior to discharge and still could not elicit any abdominal pain. His urine is relatively unremarkable and the CT of the abdomen did not reveal any acute process. I feel comfortable discharging him home with follow-up. He has primary care. He is instructed increase his fluid intake. Patient agrees with plan of care, questions were encouraged and answered. Clinical Impression: 1. Right flank pain Acute No follow-ups on file. New Prescriptions No medications on file Discontinued Medications No medications on file An After Visit Summary was printed and given to the patient with above information. Justus Muñoz CNP 04/10/232120 [facility] Work Phone: [phone]) 368-203105-30-2023 Emergency department Note* Justus Muñoz CNP - 04/10/2023 9:15 PM EDT Emergency Department Report [facility] EMERGENCY MEDICINE Service Date:.04/10/23 PCP: Shyam Harrison Chief Complaint: Chief Complaint Patient presents with Flank Pain Right sided flank pain that started a few hours ago after he got done eating HPI Josafat Alvarenga is a 37 y.o. male presents to the ED today due to acute onset right lower quadrant pain that started approximately 35-40 minutes ago. He finished eating. He denies any nausea vomiting ordiarrhea. He denies any urinary symptoms. Nothing makes his symptoms better or worse. Review of Systems: Review of Systems Constitutional: Negative. HENT: Negative. Eyes: Negative. Negative for discharge. Respiratory: Negative. Negative for apnea. Cardiovascular: Negative for leg swelling. Gastrointestinal: Positive for abdominal pain. Negative for abdominal distention. Musculoskeletal: Negative. Negative for gait problem. Skin: Negative. Negative for color change. Neurological: Negative. Psychiatric/Behavioral: Negative. Negative for agitation. All other systems reviewed and are negative. Past Medical History: Past Medical History: Diagnosis Date ADHD Asthma Schizophrenia Past Surgical History: Past Surgical History: Procedure Laterality Date EXCISION VARICOCELE ABDOMINAL APPROACH 2015 Allergies: Allergies Allergen Reactions Flexeril [Cyclobenzaprine] Anaphylaxis Latex Anaphylaxis Medications: Patient's Medications New Prescriptions No medications on file Previous Medications ALBUTEROL 108 (90 BASE) MCG/ACT AERO SOLN INHALER Inhale 2 puffs every 4 hours as needed for Wheezing. ATOMOXETINE 100 MG CAPSULE Take 1 capsule by mouth daily. BENZTROPINE 2 MG TABLET Take 1 tablet by mouth 3 times daily. CLONIDINE 0.1 MG TABLET Take 1 tablet by mouth 2 times daily. DIPHENHYDRAMINE 12.5 MG/5ML ELIXIR Take 20 mL by mouth daily. INVEGA SUSTENNA 234 MG/1.5ML SUSPENSION PREFILLED SYRINGE INJECTION Modified Medications No medications on file Discontinued Medications No medications on file Family History: History reviewed. No pertinent family history. Social History: Social History Socioeconomic History Marital status: Single Spouse name: Not on file Number of children: Not on file Years of education: Not on file Highest education level: Not on file Occupational History Not on file Tobacco Use Smoking status: Every Day Packs/day: 0.50 Years: 15.00 Pack years: 7.50 Types: Cigarettes Smokeless tobacco: Never Vaping Use Vaping Use: Never used Substance and Sexual Activity Alcohol use: No Drug use: Not Currently Types: Marijuana Sexual activity: Yes Partners: Female Other Topics Concern Not on file Social History Narrative Not on file Social Determinants of Health Financial Resource Strain: Not on file Food Insecurity: Not on file Transportation Needs: Not on file Physical Activity: Not on file Stress: Not on file Social Connections: Not on file Intimate Partner Violence: Not on file Housing Stability: Not on file Physical Exam: Physical Exam Vitals and nursing note reviewed. Constitutional: Appearance: Normal appearance. He is not ill-appearing. HENT: Head: Normocephalic. Right Ear: External ear normal. Left Ear: External ear normal. Nose: Nose normal. Mouth/Throat: Mouth: Mucous membranes are moist. Eyes: Pupils: Pupils are equal, round, and reactive to light. Cardiovascular: Rate and Rhythm: Normal rate. Pulmonary: Effort: Pulmonary effort is normal. Abdominal: General: There is no distension. Comments: I can not elicit any discomfort to the right upper right lower quadrant. It is more flankpain in the absence of CVA tenderness. Musculoskeletal: General: Normal range of motion. Cervical back: Normal range of motion. Skin: General: Skin is warm and dry. Capillary Refill: Capillary refill takes less than 2 seconds. Neurological: General: No focal deficit present. Mental Status: He is alert and oriented to person, place, and time. Psychiatric: Behavior: Behavior normal. Vital Signs During ED Visit Patient Vitals for the past 24 hrs: BP Temp Temp src Pulse Resp SpO2 Height 04/10/233 137/88 -- -- 79 20 99 % -- 04/10/232018 -- -- -- 90 20 99 % -- 04/10/231934 -- -- -- -- -- -- 1.702 m (5' 7) 04/10/23 193 (!) 151/96 97.7 F (36.5 C) Oral 96 20 97 % -- Orders/Results: Orders Placed This Encounter URINE CULTURE CT ABDOMEN/PELVIS WITHOUT CONTRAST Sodium chloride 0.9% IV solution 1,000 mL Ketorolac (TORADOL) injection 15 mg Morphine sulfate (PF) injection 4 mg Ondansetron 4mg/2ml (ZOFRAN) injection 4 mg URINALYSIS, MACRO URINE MICROSCOPIC Results for orders placed or performed during the hospital encounter of 04/10/23 URINALYSIS, MACRO Result Value Ref Range COLOR, URINE YELLOW YELLOW APPEARANCE, URINE CLEAR CLEAR Specific [place], Urine 1.010 1.010 - 1.025 PH URINE 8.5 (H) 5.0 - 7.0 PROTEIN, URINE NEGATIVE NEGATIVE mg/dl GLUCOSE, URINE NEGATIVE NEGATIVE mg/dl KETONES, URINE NEGATIVE NEGATIVE mg/dl BILIRUBIN, URINE NEGATIVE NEGATIVE BLOOD, URINE DIPSTICK NEGATIVE NEGATIVE NITRITES, URINE NEGATIVE NEGATIVE UROBILINOGEN, URINE 0.2 0.2 - 1.0 E.U./dL LEUKOCYTE ESTERASE, URINE TRACE (A) NEGATIVE URINE MICROSCOPIC Result Value Ref Range WBC, URINE 1 TO 5 NEGATIVE /HPF RBC, URINE NEGATIVE NEGATIVE /HPF Epithelial Cells UA 1 TO 5 /HPF Mucus NEGATIVE NEGATIVE BACTERIA, URINE TRACE (A) NEGATIVE CRYSTALS, URINE NONE NONE CASTS, URINE NONE NONE /LPF COMMENT, URINE REFLEX CULTURE PER ESTABLISHED CRITERIA. Radiographic Imaging CT ABDOMEN/PELVIS WITHOUT CONTRAST Final Result IMPRESSION: 1. No acute findings in the abdomen or pelvis. 2. 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 3. Small fat-containing umbilical hernia. Procedures: Procedures Medications Ordered/Given During ED Visit Medications Sodium chloride 0.9% IV solution 1,000 mL (1,000 mL Intravenous $$New Bag$$ 04/10/232014) Ketorolac (TORADOL) injection 15 mg (15 mg Intravenous Given 04/10/232015) Morphine sulfate (PF) injection 4 mg (4 mg Intravenous Given 04/10/232015) Ondansetron 4mg/2ml (ZOFRAN) injection 4 mg (4 mg Intravenous Given 04/10/232015) Medical Decision Making Patient was given some ketorolac and morphine in the emergency room on with Zofran. He received a Lof IV fluids. I reassessed him prior to discharge and still could not elicit any abdominal pain. His urine is relatively unremarkable and the CT of the abdomen did not reveal any acute process. I feel comfortable discharging him home with follow-up. He has primary care. He is instructed increase his fluid intake. Patient agrees with plan of care, questions were encouraged and answered. Clinical Impression: 1. Right flank pain Acute No follow-ups on file. New Prescriptions No medications on file Discontinued Medications No medications on file An After Visit Summary was printed and given to the patient with above information. Justus Muñoz CNP 04/10/232120 * Johanna Petersen RN - 04/10/2023 8:35 PM EDT Is aware of ordered urine, denies needs to urinate, is aware of ordered specimen [facility] Emergency department Note* Johanna Petersen RN - 04/10/2023 8:35 PM EDT Is aware of ordered urine, denies needs to urinate, is aware of ordered specimen [facility] History of Present illness Narrative* Shyam Harrison APRN-MARCELLA - 03/14/2023 9:40 AM EDT Established Patient New Problem Josafat Alvarenga [id number] 1985 03/14/2023 Chief Complaint Patient presents with Schedule Test/Referral Pt requesting referral to Urology, Pt was dc from [facility] Urology d/t multipple No Shows. Pt [facility], tamica jenkins Pt reports a lot of pain this morning, states he was having intercourse this morning and experienced a stabbing pain when he did not ejaculate. Pain level this morning7/10. History of Present Illness: Josafat Alvarenga is a 37 y.o. male is an established pt to the [facility] for new complaint asking for urology referral. He was seen by urology in the past. Last was seen by DENNYS Lira on 03/29/22. He has had several no show apts to urology and there was dc from that practice. Requesting referral to his old urologist with [facility]- Tamica Florian. States that he continues to have throbbing pain to his testicles and does not ejaculate when he hasintercourse. This AM he was having intercourse and experienced a stabbing pain when he did not ejaculate. Pain this am was a 7/10. History: Past Medical History: Diagnosis Date ADHD Asthma Schizophrenia Past Surgical History: Procedure Laterality Date EXCISION VARICOCELE ABDOMINAL APPROACH 2014 History reviewed. No pertinent family history. Social History Socioeconomic History Marital status: Single Tobacco Use Smoking status: Every Day Packs/day: 0.50 Years: 15.00 Pack years: 7.50 Types: Cigarettes Smokeless tobacco: Never Vaping Use Vaping Use: Never used Substance and Sexual Activity Alcohol use: No Drug use: Yes Types: Marijuana Comment: Daily Sexual activity: Yes Partners: Female Social History Tobacco Use Smoking Status Every Day Packs/day: 0.50 Years: 15.00 Pack years: 7.50 Types: Cigarettes Smokeless Tobacco Never Social History Substance and Sexual Activity Alcohol Use No Social History Substance and Sexual Activity Drug Use Yes Types: Marijuana Comment: Daily Allergies: Flexeril [cyclobenzaprine] and Latex Home Medications: Current Outpatient Medications: Albuterol 108 (90 Base) MCG/ACT Aero Soln inhaler, Inhale 2 puffs every 4 hours as needed for Wheezing., Disp: 18 g, Rfl: 0 atomoxetine 100 MG capsule, Take 1 capsule by mouth daily., Disp: , Rfl: benztropine 2 MG tablet, Take 1 tablet by mouth 3 times daily., Disp: , Rfl: cloNIDine 0.1 MG tablet, Take 1 tablet by mouth 2 times daily., Disp: , Rfl: diphenhydrAMINE 12.5 MG/5ML elixir, Take 20 mL by mouth daily., Disp: , Rfl: Invega Sustenna 234 MG/1.5ML Suspension Prefilled Syringe injection, , Disp: , Rfl: ROS: Review of Systems Constitutional: Negative for activity change, appetite change, chills, diaphoresis and fatigue. Respiratory: Positive for cough (occ). Negative for chest tightness, shortness of breath and wheezing. Cardiovascular: Negative for chest pain, palpitations and leg swelling. Gastrointestinal: Negative for abdominal pain, constipation, diarrhea, nausea and vomiting. Genitourinary: Positive for testicular pain (with intercourse). Negative for difficulty urinating, dysuria, flank pain, hematuria, penile pain and scrotal swelling. Neurological: Negative for dizziness, tremors, facial asymmetry, weakness and headaches. Physical Examination: Vital Signs: BP 106/64 (BP Location: Right arm, BP Position: Sitting) Pulse 84 Ht 1.702 m (5' 7) Wt 72.1 kg (159 lb) SpO2 96% BMI 24.90 kg/m Smoking Status Every Day Physical Exam Constitutional: General: He is awake. Appearance: Normal appearance. Cardiovascular: Rate and Rhythm: Normal rate and regular rhythm. Pulses: No decreased pulses. Heart sounds: Normal heart sounds. Pulmonary: Effort: Pulmonary effort is normal. No accessory muscle usage, prolonged expiration or respiratory distress. Breath sounds: Decreased breath sounds and wheezing (throughout) present. Musculoskeletal: Right lower leg: No edema. Left lower leg: No edema. Neurological: Mental Status: He is alert and oriented to person, place, and time. Psychiatric: Behavior: Behavior is cooperative. Laboratory and Additional Data Reviewed: Results for orders placed or performed during the hospital encounter of 10/20/22 NOVEL CORONAVIRUS LAB 1 - NASOPHARYNGEAL Specimen: NASOPHARYNGEAL; Fluid/Swab Result Value Ref Range SARS COV 2 RNA, QL REAL TIME RT PCR NOT DETECTED NOT DETECTED NARRATIVE -1 This test was performed using isothermal TRACY and has been approved as Emergency Use Authorization (EUA) for the qualitative detection [id number] nucleic acid. INFLUENZA A AND B, PCR Result Value Ref Range INFLUENZA A POSITIVE (A) NEGATIVE INFLUENZA B NEGATIVE NEGATIVE No images are attached to the encounter. Assessment and Plan: Josafat Alvarenga is a 37 y.o. male that presented for new complaint requesting referral to urology. continues to have throbbing pain to his testicles and does not ejaculate when he has intercourse. Requesting referral to his old urologist with [facility] Tam[facility] Florian. -referral placed per pt request. Fu as needed Call the office for any questions or concerns. I did have discussion that if any medications are not covered or is not able to get the medications to call the office and let us know so other alternative/arrangements can be made. Josafat was seen today for schedule test/referral. Diagnoses and all orders for this visit: Erectile dysfunction, unspecified erectile dysfunction type - AMB REFERRAL TO UROLOGY Disorder of ejaculation - AMB REFERRAL TO UROLOGY RAVEN Pettit documented in [facility] encounterMem[facility] Emergency department Note* Adelaide Cherry LPN - 10/12/2022 5:23 PM EST Patient was yelling at female in room give me my fucking keys I'm leaving. This nurse opened the door and he stood up and continued to yell and grabbed his keys from her and they left. I did phone him regarding his ID and insurance card that he left behind. He stated,I'll be back later and hungup on this nurse. [facility]12-01-2022 Emergency department Note* Adelaide Cherry LPN - 10/12/2022 5:23 PM EST Patient was yelling at female in room give me my fucking keys I'm leaving. This nurse opened the door and he stood up and continued to yell and grabbed his keys from her and they left. I did phone him regarding his ID and insurance card that he left behind. He stated,I'll be back later and hungup on this nurse. * Ree Crowder RN - 10/12/2022 5:03 PM EST Pt c/o R rib pain for 2 weeks after coughing documented in this encounterMem[facility]12-[facility]22 Emergency department Note* Ree Crowder RN - 10/12/2022 5:03 PM EST Pt c/o R rib pain for 2 weeks after coughing [facility] Note* Anand Ball RN - 06/23/2022 4:21 PM EDT This nurse in room to discharge pt, pt no longer in room. Pt left without receiving medication or discharge instructions [facility] Emergency department Note* Anand Ball RN - 06/23/2022 4:21 PM EDT This nurse in room to discharge pt, pt no longer in room. Pt left without receiving medication or discharge instructions documented in this encounterMem[facility] Hospital05-18-2022 History of Present illness Narrative* Hortencia Lira CNP - 03/29/2022 10:30 AM EDT Chief Complaint Patient presents with Follow-up Erectile Dysfunction HPI: 36 y.o. male recently seen as a new patient for evaluation and treatment of erectile dysfunction. Workup demonstrated a normal testosterone level. Prolactin level is elevated; this was confirmed by repeat test. He was placed on daily Cialis as he also has some mild lower urinary tract symptoms in addition to the ED. He was unable to hop picker the medication due to cost. He denies abdominal/flank pain or gross hematuria. Denies interim infections. ROS: Nurse Note: Review of Systems Constitutional: Negative. HENT: Negative. Eyes: Negative. Respiratory: Negative. Cardiovascular: Negative. Gastrointestinal: Negative. Endocrine: Negative. Genitourinary: Negative. Musculoskeletal: Negative. Skin: Negative. Allergic/Immunologic: Negative. Neurological: Negative. Hematological: Negative. Psychiatric/Behavioral: Negative. Nursing Assessment: Physical Exam FOLLOW UP FOR ED No urinary complaints History Allergies Allergen Reactions Flexeril [Cyclobenzaprine] Anaphylaxis Latex Anaphylaxis has Tobacco abuse disorder; History of methamphetamine abuse; Hx of opioid abuse; Mild persistent asthma without complication; Encounter for medical examination to establish care; Erectile dysfunction; and Schizoaffective disorder on their problem list. Current Outpatient Medications Medication Sig Dispense Refill albuterol (Ventolin HFA) 108 (90 Base) MCG/ACT Aero Soln inhaler Inhale 1 puff every 6 hours as needed for Shortness of Breath, Cough or Wheezing. 18 g 6 atomoxetine 100 MG capsule Take 100 mg by mouth daily. benztropine 2 MG tablet Take 2 mg by mouth 3 times daily. Buprenorphine 4 mg/naloxone 1 mg SL film DISSOLVE 1 FILM UNDER THE TONGUE ONCE DAILY Buprenorphine HCl-Naloxone HCl 12-3 MG Film DISSOLVE 1 FILM UNDER TONGUE ONCE DAILY cloNIDine 0.1 MG tablet Take 0.1 mg by mouth 2 times daily. diphenhydrAMINE 12.5 MG/5ML elixir Take 50 mg by mouth daily. Invega Sustenna 234 MG/1.5ML Suspension Prefilled Syringe injection Mometasone Furoate (Asmanex, 30 Metered Doses,) 110 MCG/INH Aerosol Powder, breath activated Inhale1 puff every evening at 6 PM. 1 Each 6 Salkum-3 Fatty Acids (Fish Oil) 1000 MG capsule Take 2 capsules by mouth 2 times daily. 360 capsule 1 Paliperidone Palmitate (INVEGA TRINZA IM) Inject intramuscularly. tadalafil 5 MG tablet Take 1 tablet by mouth daily as needed. 30 tablet 11 No current facility-administered medications for this visit. family history is not on file. Past Medical History: Diagnosis Date ADHD Asthma Schizophrenia Past Surgical History: Procedure Laterality Date EXCISION VARICOCELE ABDOMINAL APPROACH 2014 Social History Socioeconomic History Marital status: Single Spouse name: Not on file Number of children: Not on file Years of education: Not on file Highest education level: Not on file Occupational History Not on file Tobacco Use Smoking status: Current Every Day Smoker Packs/day: 1.00 Years: 15.00 Pack years: 15.00 Types: Cigarettes Smokeless tobacco: Never Used Vaping Use Vaping Use: Never used Substance and Sexual Activity Alcohol use: No Drug use: No Sexual activity: Yes Partners: Female Other Topics Concern Not on file Social History Narrative Not on file Social Determinants of Health Financial Resource Strain: Not on file Food Insecurity: Not on file Transportation Needs: Not on file Physical Activity: Not on file Stress: Not on file Social Connections: Not on file Intimate Partner Violence: Not on file Housing Stability: Not on file Physical Exam: Resp 18 Ht 1.702 m (5' 7) Wt 75.3 kg (166 lb) SpO2 98% BMI 26.00 kg/m Smoking Status Current Every Day Smoker Body mass index is 26 kg/m . Constitutional: Appears well, no acute distress. Cardiovascular: Regular rate and rhythm. No lower extremity edema. Pulmonary: Respirations even and unlabored. Lungs clear to auscultation. Abdomen: Soft, non-tender. Bowel sounds active x 4. No CVA/suprapubic tenderness noted. Musculoskeletal: All major joints are without swelling, erythema, or bony deformity. Normal range of motion of all major joints. Skin: Warm, dry and intact. Neuro: No sensory or motor deficits. Assessment/Plan: 1. Vasculogenic erectile dysfunction, unspecified vasculogenic erectile dysfunction type GoodRx coupon provided for [place]. He will follow up in 4 weeks to assess efficacy of medication. 2. Elevated prolactin level Repeat prolactin has decreased but remains elevated at 59.6. Refer to endocrinology for further evaluation. Pituitary MRI ordered. 3. Kidney stone CT results reviewed; suspected 6mm right renal stone noted on previous renal ultrasound was not identified on CT. 4. Microscopic hematuria Urinalysis persistent hematuria. Cytology demonstrated atypical cells but FISH was negative. CT wasunremarkable from urological standpoint. Recommend follow up with Dr. Thorne for cystoscopy to complete workup. Patient was advised to call with any questions or concerns. If symptoms worsen patient was advised to follow up in our office or the Emergency Dept. Benefits, Risks, Contraindications, and Complications of recommended treatments were explained the patient understands and agrees to proceed with plan. * Marce Gonsalves - 03/29/2022 10:30 AM EDT Nurse Note: Review of Systems Constitutional: Negative. HENT: Negative. Eyes: Negative. Respiratory: Negative. Cardiovascular: Negative. Gastrointestinal: Negative. Endocrine: Negative. Genitourinary: Negative. Musculoskeletal: Negative. Skin: Negative. Allergic/Immunologic: Negative. Neurological: Negative. Hematological: Negative. Psychiatric/Behavioral: Negative. Nursing Assessment: Physical Exam FOLLOW UP FOR ED No urinary complaints Lab Results Component Value Date APPEARANCE CLEAR 03/29/2022 COLOR YELLOW 03/29/2022 SPECIFICGRAV 1.015 03/29/2022 BLOOD TRACE-INTACT 03/29/2022 PH 7.5 (A) 03/29/2022 PROTEIN NEG 03/29/2022 UROBILINOGEN 1.0 03/29/2022 NITRITE NEG 03/29/2022 LEUKOCYTE NEG 03/29/2022 LEUKOCESTUR NEGATIVE 07/16/2019 [facility] History of Present illness Narrative* Hortencia Lira CNP - 03/07/2022 1:30 PM EDT Chief Complaint Patient presents with Follow-up Erectile Dysfunction Kidney Stone HPI: 36 y.o. male recently seen as a new patient for evaluation of erectile dysfunction. Patient reportsdifficulty attaining and maintaining erections. This started approximately a year ago. No longer gets nocturnal/authorizer erection. The patient reports an inability to obtain an erection with mast urbation. Relationship with partner is good. Risk factors for ED include chronic opioid use and Smoking; reports 10 year pack history. He has tried sildenafil without improvement. Denies history of [place]/CVA. He is not diabetic. He reports weak stream at baseline. Reports remote history of kidney stones. Denies family history of kidney, bladder, or prostate cancer. ROS: Nurse Note: Review of Systems Genitourinary: Positive for flank pain and urgency. Negative for difficulty urinating, dysuria, frequency, hematuria, penile pain and testicular pain. All other systems reviewed and are negative. Nursing Assessment: Physical Exam Patient comes today for ED & Kidney Stone F/U. Patient states he has ride side pain rating a 5 that goes to the front. Also says he has urgency. Lab Results Component Value Date APPEARANCE clear 03/07/2022 COLOR yellow 03/07/2022 SPECIFICGRAV 1.010 03/07/2022 BLOOD neg 03/07/2022 PH 6.5 03/07/2022 PROTEIN neg 03/07/2022 UROBILINOGEN 0.2 03/07/2022 NITRITE neg 03/07/2022 LEUKOCYTE TRACE 03/07/2022 LEUKOCESTUR NEGATIVE 07/16/2019 History Allergies Allergen Reactions Flexeril [Cyclobenzaprine] Anaphylaxis Latex Anaphylaxis has Tobacco abuse disorder; History of methamphetamine abuse; Hx of opioid abuse; Mild persistent asthma without complication; Encounter for medical examination to establish care; Erectile dysfunction; and Schizoaffective disorder on their problem list. Current Outpatient Medications Medication Sig Dispense Refill albuterol (Ventolin HFA) 108 (90 Base) MCG/ACT Aero Soln inhaler Inhale 1 puff every 6 hours as needed for Shortness of Breath, Cough or Wheezing. 18 g 6 atomoxetine 100 MG capsule Take 100 mg by mouth daily. benztropine 2 MG tablet Take 2 mg by mouth 3 times daily. Buprenorphine 4 mg/naloxone 1 mg SL film DISSOLVE 1 FILM UNDER THE TONGUE ONCE DAILY Buprenorphine HCl-Naloxone HCl 12-3 MG Film DISSOLVE 1 FILM UNDER TONGUE ONCE DAILY cloNIDine 0.1 MG tablet Take 0.1 mg by mouth 2 times daily. diphenhydrAMINE 12.5 MG/5ML elixir Take 50 mg by mouth daily. Invega Sustenna 234 MG/1.5ML Suspension Prefilled Syringe injection Mometasone Furoate (Asmanex, 30 Metered Doses,) 110 MCG/INH Aerosol Powder, breath activated Inhale1 puff every evening at 6 PM. 1 Each 6 Salkum-3 Fatty Acids (Fish Oil) 1000 MG capsule Take 2 capsules by mouth 2 times daily. 360 capsule 1 Paliperidone Palmitate (INVEGA TRINZA IM) Inject intramuscularly. tadalafil 5 MG tablet Take 1 tablet by mouth daily as needed. 30 tablet 11 No current facility-administered medications for this visit. family history is not on file. Past Medical History: Diagnosis Date ADHD Asthma Schizophrenia Past Surgical History: Procedure Laterality Date EXCISION VARICOCELE ABDOMINAL APPROACH 2014 Social History Socioeconomic History Marital status: Single Spouse name: Not on file Number of children: Not on file Years of education: Not on file Highest education level: Not on file Occupational History Not on file Tobacco Use Smoking status: Current Every Day Smoker Packs/day: 1.00 Years: 15.00 Pack years: 15.00 Types: Cigarettes Smokeless tobacco: Never Used Vaping Use Vaping Use: Never used Substance and Sexual Activity Alcohol use: No Drug use: No Sexual activity: Yes Partners: Female Other Topics Concern Not on file Social History Narrative Not on file Social Determinants of Health Financial Resource Strain: Not on file Food Insecurity: Not on file Transportation Needs: Not on file Physical Activity: Not on file Stress: Not on file Social Connections: Not on file Intimate Partner Violence: Not on file Housing Stability: Not on file Physical Exam: Resp 18 Ht 1.702 m (5' 7) Wt 75.3 kg (166 lb) BMI 26.00 kg/m Smoking Status Current Every Day Smoker Body mass index is 26 kg/m . Constitutional: Appears well, no acute distress. Cardiovascular: Regular rate and rhythm. No lower extremity edema. Pulmonary: Respirations even and unlabored. Lungs clear to auscultation. Abdomen: Soft, non-tender. Bowel sounds active x 4. No CVA/suprapubic tenderness noted. Musculoskeletal: All major joints are without swelling, erythema, or bony deformity. Normal range of motion of all major joints. Skin: Warm, dry and intact. Neuro: No sensory or motor deficits. Assessment/Plan: 1. Vasculogenic erectile dysfunction, unspecified vasculogenic erectile dysfunction type Labs reviewed; testosterone 667. Prolactin 64.4. He will repeat prolactin level. If remains elevated we will refer to Dr. Umana. We discussed management options for ED. Recommended daily tadalafil for its dual benefit with lowerurinary tract symptoms. Appropriate use and side effects discussed. He will follow up in 2 weeks for re-evaluation. 2. Microscopic hematuria UA negative today. Cytology demonstrated atypical cells; FISH was negative. Renal ultrasound demonstrated possible 7mm in the lower pole of the right kidney. CT stone study ordered for better evaluation. Follow up in 2 weeks to review results and discuss treatment options if indicated. Patient was advised to call with any questions or concerns. If symptoms worsen patient was advised to follow up in our office or the Emergency Dept. Benefits, Risks, Contraindications, and Complications of recommended treatments were explained the patient understands and agrees to proceed with plan. * Shruthi Burgess - 03/07/2022 1:30 PM EDT Nurse Note: Review of Systems Genitourinary: Positive for flank pain and urgency. Negative for difficulty urinating, dysuria, frequency, hematuria, penile pain and testicular pain. All other systems reviewed and are negative. Nursing Assessment: Physical Exam Patient comes today for ED & Kidney Stone F/U. Patient states he has ride side pain rating a 5 that goes to the front. Also says he has urgency. * Marce Gonsalves - 03/07/2022 1:30 PM EDT Lab Results Component Value Date APPEARANCE clear 03/07/2022 COLOR yellow 03/07/2022 SPECIFICGRAV 1.010 03/07/2022 BLOOD neg 03/07/2022 PH 6.5 03/07/2022 PROTEIN neg 03/07/2022 UROBILINOGEN 0.2 03/07/2022 NITRITE neg 03/07/2022 LEUKOCYTE TRACE 03/07/2022 LEUKOCESTUR NEGATIVE 07/16/2019 documented in this [facility]04-26-2022 Miscellaneous Notes* Addendum Note - Marce Gonsalves - 03/07/2022 1:30 PM EDTAddended by: MARCE GONSALVES on: 03/07/2022 02:21 PM Modules accepted: Orders * Addendum Note - Marce Gonsalves - 03/07/2022 1:30 PM EDTAddended by: MARCE GONSALVES on: 03/07/2022 02:25 PM Modules accepted: Orders * Addendum Note - Marce Gonsalves - 03/07/2022 1:30 PM EDTAddended by: MARCE GONSALVES on: 03/07/2022 02:26 PM Modules accepted: Orders * Addendum Note - Marce Gonsalves - 03/07/2022 1:30 PM EDTAddended by: MARCE GONSALVES on: 03/07/2022 02:28 PM Modules accepted: Orders [facility]* Addendum Note - Marce Gonsalves - 03/07/2022 1:30 PM EDTAddended by: MARCE GONSALVES on: 03/07/2022 02:21 PM Modules accepted: Orders [facility]* Addendum Note - Marce Gonsalves - 03/07/2022 1:30 PM EDTAddended by: MARCE GONSALVES on: 03/07/2022 02:25 PM Modules accepted: Orders [facility]* Addendum Note - Marce Gonsalves - 03/07/2022 1:30 PM EDTAddended by: MARCE GONSALVES on: 03/07/2022 02:26 PM Modules accepted: Orders [facility]* Addendum Note - Marce Gonsalves - 03/07/2022 1:30 PM EDTAddended by: MARCE GONSALVES on: 03/07/2022 02:28 PM Modules accepted: Orders [facility] History of Present illness Narrative* Marce Gonsalves - 02/21/2022 1:45 PM EDT Nurse Note: Review of Systems Constitutional: Negative. HENT: Negative. Eyes: Negative. Respiratory: Negative. Cardiovascular: Negative. Gastrointestinal: Negative. Endocrine: Negative. Genitourinary: Positive for difficulty urinating, frequency and urgency. Nocturia Musculoskeletal: Negative. Skin: Negative. Allergic/Immunologic: Negative. Neurological: Negative. Hematological: Negative. Psychiatric/Behavioral: Negative. Nursing Assessment: Physical Exam New patient for ED PT stated he has difficulty urinating, frequency during the day and at night, and Urgency he can not hold his urine. This has been going on for awhile. Nocturia 2 x PVR: 55 Lab Results Component Value Date APPEARANCE clear 02/21/2022 COLOR dark yellow 02/21/2022 SPECIFICGRAV 1.015 02/21/2022 BLOOD TRACE-INACT 02/21/2022 PH 6.0 02/21/2022 PROTEIN 30 02/21/2022 UROBILINOGEN 0.2 02/21/2022 NITRITE neg 02/21/2022 LEUKOCYTE TRACE 02/21/2022 LEUKOCESTUR NEGATIVE 07/16/2019 * Hortencia Lira, DIRECTOR OF H[employer]EL OPERATIONS - 02/21/2022 1:45 PM EDT Chief Complaint Patient presents with New Patient ED HPI: 36 y.o. male presenting as a new patient for evaluation of erectile dysfunction. Patient reports difficulty attaining and maintaining erections. This started approximately a year ago. No longer gets nocturnal/authorizer erection. The patient reports an inability to obtain an erection with masturbation. Relationship with partner is good. Risk factors for ED include chronic opioid use and Smoking; reports 10 year pack history. He has tried sildenafil without improvement. Denies history of [place]/CVA. He is not diabetic. He reports weak stream at baseline. Reports remote history of kidney stones. Denies family history of kidney, bladder, or prostate cancer. ROS: Nurse Note: Review of Systems Constitutional: Negative. HENT: Negative. Eyes: Negative. Respiratory: Negative. Cardiovascular: Negative. Gastrointestinal: Negative. Endocrine: Negative. Genitourinary: Positive for difficulty urinating, frequency and urgency. Nocturia Musculoskeletal: Negative. Skin: Negative. Allergic/Immunologic: Negative. Neurological: Negative. Hematological: Negative. Psychiatric/Behavioral: Negative. Nursing Assessment: Physical Exam New patient for ED PT stated he has difficulty urinating, frequency during the day and at night, and Urgency he can not hold his urine. This has been going on for awhile. Nocturia 2 x PVR: 55 Lab Results Component Value Date APPEARANCE clear 02/21/2022 COLOR dark yellow 02/21/2022 SPECIFICGRAV 1.015 02/21/2022 BLOOD TRACE-INACT 02/21/2022 PH 6.0 02/21/2022 PROTEIN 30 02/21/2022 UROBILINOGEN 0.2 02/21/2022 NITRITE neg 02/21/2022 LEUKOCYTE TRACE 02/21/2022 LEUKOCESTUR NEGATIVE 07/16/2019 History Allergies Allergen Reactions Flexeril [Cyclobenzaprine] Anaphylaxis Latex Anaphylaxis has Tobacco abuse disorder; History of methamphetamine abuse; Hx of opioid abuse; Mild persistent asthma without complication; Encounter for medical examination to establish care; Erectile dysfunction; and Schizoaffective disorder on their problem list. Current Outpatient Medications Medication Sig Dispense Refill albuterol (Ventolin HFA) 108 (90 Base) MCG/ACT Aero Soln inhaler Inhale 1 puff every 6 hours as needed for Shortness of Breath, Cough or Wheezing. 18 g 6 atomoxetine 100 MG capsule Take 100 mg by mouth daily. benztropine 2 MG tablet Take 2 mg by mouth 3 times daily. Buprenorphine 4 mg/naloxone 1 mg SL film DISSOLVE 1 FILM UNDER THE TONGUE ONCE DAILY Buprenorphine HCl-Naloxone HCl 12-3 MG Film DISSOLVE 1 FILM UNDER TONGUE ONCE DAILY cloNIDine 0.1 MG tablet Take 0.1 mg by mouth 2 times daily. diphenhydrAMINE 12.5 MG/5ML elixir Take 50 mg by mouth daily. Invega Sustenna 234 MG/1.5ML Suspension Prefilled Syringe injection Mometasone Furoate (Asmanex, 30 Metered Doses,) 110 MCG/INH Aerosol Powder, breath activated Inhale1 puff every evening at 6 PM. 1 Each 6 Salkum-3 Fatty Acids (Fish Oil) 1000 MG capsule Take 2 capsules by mouth 2 times daily. 360 capsule 1 Paliperidone Palmitate (INVEGA TRINZA IM) Inject intramuscularly. sildenafil citrate 100 MG tablet Take 1 tablet by mouth daily as needed for Erectile Dysfunction. 30 tablet 3 No current facility-administered medications for this visit. family history is not on file. Past Medical History: Diagnosis Date ADHD Asthma Schizophrenia Past Surgical History: Procedure Laterality Date EXCISION VARICOCELE ABDOMINAL APPROACH 2014 Social History Socioeconomic History Marital status: Single Spouse name: Not on file Number of children: Not on file Years of education: Not on file Highest education level: Not on file Occupational History Not on file Tobacco Use Smoking status: Current Every Day Smoker Packs/day: 1.00 Years: 15.00 Pack years: 15.00 Types: Cigarettes Smokeless tobacco: Never Used Vaping Use Vaping Use: Never used Substance and Sexual Activity Alcohol use: No Drug use: No Sexual activity: Yes Partners: Female Other Topics Concern Not on file Social History Narrative Not on file Social Determinants of Health Financial Resource Strain: Not on file Food Insecurity: Not on file Transportation Needs: Not on file Physical Activity: Not on file Stress: Not on file Social Connections: Not on file Intimate Partner Violence: Not on file Housing Stability: Not on file Physical Exam: Resp 18 Ht 1.702 m (5' 7) Wt 75.3 kg (166 lb) SpO2 98% BMI 26.00 kg/m Smoking Status Current Every Day Smoker Body mass index is 26 kg/m . Constitutional: Appears well, no acute distress. Cardiovascular: Regular rate and rhythm. No lower extremity edema. Pulmonary: Respirations even and unlabored. Lungs clear to auscultation. Abdomen: Soft, non-tender. Bowel sounds active x 4. No CVA/suprapubic tenderness noted. Musculoskeletal: All major joints are without swelling, erythema, or bony deformity. Normal range of motion of all major joints. Skin: Warm, dry and intact. Neuro: No sensory or motor deficits. Assessment/Plan: 1. Vasculogenic erectile dysfunction, unspecified vasculogenic erectile dysfunction type 2. Urinary frequency 3. Microscopic hematuria Patient reports erectile dysfunction; no improvement with sildenafil. Given his opioid history I suspect his testosterone may be low contributing to the ED. We will check some labs. If low we can certainly consider testosterone replacement. If testosterone is normal; consider trying Cialis for its dual benefit of ED and LUTS. Urinalysis with trace hematuria; urine sent for cytology and molecular testing. Renal ultrasound ordered. May consider cystoscopy if persistent hematuria. Follow up in 1week - POCT URINALYSIS DIPSTICK AUTOMATED W/O SCOP - [place] RODDY,POST-VOID RES,US,NON-IMAGING Patient was advised to call with any questions or concerns. If symptoms worsen patient was advised to follow up in our office or the Emergency Dept. Benefits, Risks, Contraindications, and Complications of recommended treatments were explained the patient understands and agrees to proceed with plan. [facility] History of Present illness Narrative* Shyam Harrison APRN-[facility]LLA - 02/10/2022 10:10 AM EDT This is a 36 yo male that arrives to the office for ED concerns. Is having a diff time getting and maintaining an erection. Is currently prescribed Viagra 100 mg as needed. When taking the Viagra only able to get 1/2 an erection and not enough for penetration. He is currently prescribed medications for schizophrenia. Used to be on suboxone for opioid abuse. No longer taking suboxone. Has never been evaluated by urology in the past. ROS Constitutional: Denies Fever. No chills. Eyes: Denies visual change or eye discharge Head/Ear/Nose/Throat: Denies earache or sore throat Respiratory: Denies shortness of breath Cardiovascular: Denies chest pain Gastrointestinal: Denies abdominal pain, Denies nausea, Denies vomiting Genitourinary: Denies dysuria. Pos for ED. Musculoskeletal: Denies Joint pain, Denies muscle pain Skin: Denies Rash Neurological: Denies Headache, Denies focal neuro symptoms Social History Tobacco Use Smoking status: Current Every Day Smoker Packs/day: 1.00 Years: 15.00 Pack years: 15.00 Types: Cigarettes Smokeless tobacco: Never Used Vaping Use Vaping Use: Never used Substance Use Topics Alcohol use: No Drug use: No EXAM BP 118/82 (BP Location: Left arm, BP Position: Sitting) Pulse 95 Temp 97.6 F (36.4 C) (Temporal) Ht 1.702 m (5' 7) Wt 75.3 kg (166 lb) SpO2 98% BMI 26.00 kg/m Smoking Status Current Every Day Smoker Primary Assessment: Airway patent. Respirations unlabored, Normal respiratory effort Constitutional: Vital signs reviewed. Well appearing. No distress. Non toxic in appearance. Psychiatric: Mental status appropriate. Normal affect Skin: Warm and dry. No rashes noted Eyes: Conjunctiva clear. No photophobia HENT: Normocephalic. Normal Tms. Posterior pharynx clear. Negative cervical lymphadenopathy. Tracheal sounds free of stridor. Thorax/ Respiratory: Respiratory effort non-labored. BBS clear ant/post. No wheezes, rales or rhonchi. Gastrointestinal: Abdomen soft and non-tender Genitourinary: NA Musculoskeletal: Neck supple Neurologic: Alert and Oriented Diagnosis: There were no encounter diagnoses. Plan: 1. Erectile dysfunction, unspecified erectile dysfunction type - AMB REFERRAL TO UROLOGY 2. Schizoaffective disorder, unspecified type 3. Hx of opioid abuse ED- viagra is not helping. Has never seen urology in the past. -will send referral to urology. RAVEN Pettit 02/10/2022 [facility] this [facility] History of Present illness Narrative* RAVEN Pettit - 01/10/2022 1:00 PM EST This is a 36 yo male that arrives to the office for reason of ED and asthma. ED- states that the current management is not effective. Not able to get aroused and not able to get or maintain an erection. Has been using the medication as prescribed. No se from the meds. No cp, khanna, or sob with medication use. -Current management with Viagra 100 mg as needed. Asthma- dx when he was 3 yo. Flares up from time to time. Uses the albuterol as needed. was using this everyday about 1-2 x per day. He says that this is just a habit of using it. Says that most of the time usually only uses it as needed for wheezing, but he has wheezing everyday so he uses it. Says when he was younger he used an neb machine everyday. Has been taking as prescribed. No se. No adverse effects. Says that the inhaler has really helped him. Is now only using the albuterol as needed and has not really needed to use that. Using Asmanex as prescribed daily and that seems to help control symptoms and breathing. Feels that his breathing is controlled and denies any breathing problems. Diarrhea- onset was 3 wks ago. Sometimes is soft and other times is water. Has not tried anything for it. No changes in diet. No new meds. No abd pain. Not blood in the stool. ROS Constitutional: Denies Fever. No chills. Eyes: Denies visual change or eye discharge Head/Ear/Nose/Throat: Denies earache or sore throat Respiratory: Denies shortness of breath. Pos for cough and wheezing- asthma. Cardiovascular: Denies chest pain Gastrointestinal: Denies abdominal pain, Denies nausea, Denies vomiting. Pos for diarrhea. Genitourinary: Denies dysuria. Pos for ED. Musculoskeletal: Denies Joint pain, Denies muscle pain Skin: Denies Rash Neurological: Denies Headache, Denies focal neuro symptoms Social History Tobacco Use Smoking status: Current Every Day Smoker Packs/day: 1.00 Years: 15.00 Pack years: 15.00 Types: Cigarettes Smokeless tobacco: Never Used Vaping Use Vaping Use: Never used Substance Use Topics Alcohol use: No Drug use: No EXAM Smoking Status Current Every Day Smoker Primary Assessment: Airway patent. Respirations unlabored, Normal respiratory effort Constitutional: Vital signs reviewed. Well appearing. No distress. Non toxic in appearance. Psychiatric: Mental status appropriate. Normal affect Skin: Warm and dry. No rashes noted Eyes: Conjunctiva clear. No photophobia HENT: Normocephalic. Normal Tms. Posterior pharynx clear. Negative cervical lymphadenopathy. Tracheal sounds free of stridor. Thorax/ Respiratory: Respiratory effort non-labored. BBS clear diminished with wheezing throughout.No rales or rhonchi. Gastrointestinal: Abdomen soft and non-tender Genitourinary: NA Musculoskeletal: Neck supple Neurologic: Alert and Oriented. No meningeal signs. Diagnosis: There were no encounter diagnoses. Plan: 1. Erectile dysfunction, unspecified erectile dysfunction type - sildenafil citrate 100 MG tablet; Take 1 tablet by mouth daily as needed for Erectile Dysfunction. Dispense: 30 tablet; Refill: 3 - AMB REFERRAL TO UROLOGY 2. Mild persistent asthma without complication 3. Diarrhea, unspecified type 4. Tobacco abuse disorder ED- cont to have ed despite med management. -will cont Viagra -referral to urology. asthma- stable. Needs refills -will refill ventolin inhaler. Diarrhea- for the last 3 wks no abd pain. -suggested clear liquid and belly rest for 24-36 hrs. -suggested pepto otc. Fu in 6 months. -asthma Med management. Fu as needed. RAVEN Pettit 01/10/2022 documented in this [facility]11-12-2021 History of Present illness Narrative* Lilliana Cagle - 09/23/2021 8:20 AM EST Tubes: 1 Gold; 1 Purple Attempts: 1 Location: Left AC Position: Sitting Patient tolerated well. MLee * RAVEN Pettit - 09/23/2021 8:20 AM EST Follow Up Visit Josafat Alvarenga [id number] 09/23/2021 Chief Complaint Patient presents with Medication Refill inhalers, Erectile medication History of Present Illness: Josafat Alvarenga is a 36 y.o. male presenting for follow up. Last visit plan: Asthma- chronic. controlled with inhaler. Taking as prescribed. Not using the albuterol inhaler as much. -cont Asmanex inhaler daily. -cont albuterol as needed. ED- diff getting and maintaining and erection. Feels this is related to the Invega injections. Attempted viagra and current dose is not helping. No se from the meds. Discussed trying to increase to see if that helps. -will increase viagra to 100 mg as needed. Discussed risks of taking this medication and red flags. Had a painful lump behind the right nipple 1 month ago. He thinks it went away. Exam did not revealany concerning lump. meds refilled. Fu in 3 months. s Today: Here for med refills. ED- able to better maintain an erection strong enough for penetration. Has been using the medication as prescribed. No se from the meds. No cp, khanna, or sob with medication use. -Current management with Viagra 100 mg as needed. Asthma- dx when he was 3 yo. Flares up from time to time. Uses the albuterol as needed. was using this everyday about 1-2 x per day. He says that this is just a habit of using it. Says that most of the time usually only uses it as needed for wheezing, but he has wheezing everyday so he uses it. Says when he was younger he used an neb machine everyday. Has been taking as prescribed. No se. No adverse effects. Says that the inhaler has really helped him. Is now only using the albuterol as needed and has not really needed to use that. Using Asmanex as prescribed daily and that seems to help control symptoms and breathing. Feels that his breathing is controlled and denies any breathing problems. Currently smoking 5 cigarettes per day. He wants to and trying to quite. Nothing else acute. Last bw was done over 1 yr ago. History: Past Medical History: Diagnosis Date ADHD Asthma Schizophrenia Past Surgical History: Procedure Laterality Date EXCISION VARICOCELE ABDOMINAL APPROACH 2014 History reviewed. No pertinent family history. Social History Socioeconomic History Marital status: Single Spouse name: Not on file Number of children: Not on file Years of education: Not on file Highest education level: Not on file Occupational History Not on file Tobacco Use Smoking status: Current Every Day Smoker Packs/day: 1.00 Years: 15.00 Pack years: 15.00 Types: Cigarettes Smokeless tobacco: Never Used Vaping Use Vaping Use: Never used Substance and Sexual Activity Alcohol use: No Drug use: No Sexual activity: Yes Partners: Female Other Topics Concern Not on file Social History Narrative Not on file Social Determinants of Health Financial Resource Strain: Not on file Food Insecurity: Not on file Transportation Needs: Not on file Physical Activity: Not on file Stress: Not on file Social Connections: Not on file Intimate Partner Violence: Not on file Housing Stability: Not on file Social History Tobacco Use Smoking Status Current Every Day Smoker Packs/day: 1.00 Years: 15.00 Pack years: 15.00 Types: Cigarettes Smokeless Tobacco Never Used Social History Substance and Sexual Activity Alcohol Use No Social History Substance and Sexual Activity Drug Use No Allergies: Flexeril [cyclobenzaprine] and Latex Home Medications: Current Outpatient Medications: albuterol 108 (90 Base) MCG/ACT Aero Soln inhaler, Inhale 2 puffs every 6 hours as needed for Shortness of Breath or Wheezing., Disp: 18 g, Rfl: 6 Buprenorphine 4 mg/naloxone 1 mg SL film, DISSOLVE 1 FILM UNDER THE TONGUE ONCE DAILY, Disp: , Rfl: Buprenorphine HCl-Naloxone HCl 12-3 MG Film, DISSOLVE 1 FILM UNDER TONGUE ONCE DAILY, Disp: , Rfl: cloNIDine 0.1 MG tablet, Take 0.1 mg by mouth 2 times daily., Disp: , Rfl: diphenhydrAMINE 12.5 MG/5ML elixir, Take 50 mg by mouth daily., Disp: , Rfl: Mometasone Furoate (Asmanex, 30 Metered Doses,) 110 MCG/INH Aerosol Powder, breath activated, Inhale 1 puff every evening at 6 PM., Disp: 1 Each, Rfl: 6 Paliperidone Palmitate (INVEGA TRINZA IM), Inject intramuscularly., Disp: , Rfl: sildenafil citrate 100 MG tablet, Take 1 tablet by mouth daily as needed for Erectile Dysfunction.,Disp: 30 tablet, Rfl: 3 ROS: Review of Systems Constitutional: Negative for activity change, appetite change, chills and fatigue. Respiratory: Negative for cough, chest tightness, shortness of breath and wheezing. Cardiovascular: Negative for chest pain, palpitations and leg swelling. Gastrointestinal: Negative for abdominal pain, constipation, diarrhea, nausea and vomiting. Genitourinary: Negative for dysuria, flank pain, penile pain and testicular pain. Neurological: Negative for dizziness, tremors, facial asymmetry, weakness, light-headedness, numbness and headaches. Psychiatric/Behavioral: Negative for agitation, dysphoric mood, sleep disturbance and suicidal ideas. The patient is not hyperactive. Physical Examination: Vital Signs: BP 132/84 Pulse 81 Temp 98.2 F (36.8 C) Resp 18 Ht 1.702 m (5' 7) Wt 77.6 kg (171 lb) SpO2 99% BMI 26.78 kg/m Smoking Status Current Every Day Smoker Physical Exam Constitutional: General: He is awake. Appearance: Normal appearance. Cardiovascular: Rate and Rhythm: Normal rate. Pulses: Normal pulses. No decreased pulses. Heart sounds: Normal heart sounds. Pulmonary: Effort: Pulmonary effort is normal. No accessory muscle usage, prolonged expiration or respiratory distress. Breath sounds: Decreased breath sounds and wheezing present. Musculoskeletal: Right lower leg: No edema. Left lower leg: No edema. Skin: General: Skin is warm and dry. Capillary Refill: Capillary refill takes less than 2 seconds. Neurological: Mental Status: He is alert and oriented to person, place, and time. Coordination: Coordination is intact. Gait: Gait is intact. Psychiatric: Attention and Perception: Attention normal. Mood and Affect: Mood normal. Mood is not anxious or depressed. Speech: Speech normal. Behavior: Behavior normal. Behavior is cooperative. Thought Content: Thought content normal. Thought content is not paranoid or delusional. Thought content does not include homicidal or suicidal ideation. Thought content does not include homicidal or suicidal plan. Cognition and Memory: Cognition normal. Judgment: Judgment normal. Laboratory and Additional Data Reviewed: Results for orders placed or performed during the hospital encounter of 07/16/19 URINALYSIS, MACRO Result Value Ref Range COLOR, URINE LIGHT YELLOW (A) YELLOW APPEARANCE, URINE CLEAR CLEAR SPECIFIC GRAVITY, URINE 1.015 1.010 - 1.025 PH URINE 5.5 5.0 - 7.0 PROTEIN, URINE NEGATIVE NEGATIVE mg/dl GLUCOSE, URINE NEGATIVE NEGATIVE mg/dl KETONES, URINE NEGATIVE NEGATIVE mg/dl BILIRUBIN, URINE NEGATIVE NEGATIVE BLOOD, URINE DIPSTICK NEGATIVE NEGATIVE NITRITES, URINE NEGATIVE NEGATIVE UROBILINOGEN, URINE 0.2 0.2 - 1.0 E.U./dL LEUKOCYTE ESTERASE, URINE NEGATIVE NEGATIVE No images are attached to the encounter. Assessment and Plan: Josafat Alvarenga is a 36 y.o. male that presents for follow up. Asthma- chronic. controlled with inhaler. Taking as prescribed. Not using the albuterol inhaler as much. -cont Asmanex inhaler daily. -cont albuterol as needed. ED-better with meds. No se from the meds. -will cont viagra 100 mg as needed. Discussed risks of taking this medication and red flags. Will get updated bw. meds refilled. Fu in 6 months. -asthma -ED Med management bw if needed. Call the office for any questions or concerns. I did have discussion that if any medications are not covered or is not able to get the medications to call the office and let us know so other alternative/arrangements can be made. Josafat was seen today for medication refill. Diagnoses and all orders for this visit: Mild persistent asthma without complication - albuterol 108 (90 Base) MCG/ACT Aero Soln inhaler; Inhale 2 puffs every 6 hours as needed for Shortness of Breath or Wheezing. - Mometasone Furoate (Asmanex, 30 Metered Doses,) 110 MCG/INH Aerosol Powder, breath activated; Inhale 1 puff every evening at 6 PM. Erectile dysfunction, unspecified erectile dysfunction type - sildenafil citrate 100 MG tablet; Take 1 tablet by mouth daily as needed for Erectile Dysfunction. Encounter for preventative adult health care examination - COMPREHENSIVE METABOLIC PANEL; Future - CBC, EDIF, PLATELET; Future - LIPID PANEL W CALCULATED LDL; Future - LIPID PANEL W CALCULATED LDL - CBC, EDIF, PLATELET - COMPREHENSIVE METABOLIC PANEL Tobacco abuse disorder [facility] of Past illness Narrative* Problem Noted Date Resolved Date NO SHOW 08/31/2014 07/12/2017 Balanitis 08/09/2009 02/23/2014 Redundant prepuce and phimosis 08/09/2009 0 02/23/2014 documented as of this encounter (statuses as of 04/27/2023) [facility] History of Past illness Narrative* Problem Noted Date Resolved Date NO SHOW 08/31/2014 07/12/2017 Balanitis 08/09/2009 02/23/2014 Redundant prepuce and phimosis 08/09/2009 0 02/23/2014 documented as of this encounter (statuses as of 04/27/2023) [facility] History of Past illness Narrative* Problem Noted Date Resolved Date NO SHOW 08/31/2014 07/12/2017 Balanitis 08/09/2009 02/23/2014 Redundant prepuce and phimosis 08/09/2009 0 02/23/2014 documented as of this encounter (statuses as of 05/02/2023) [facility] History of Past illness Narrative* Problem Noted Date Diagnosed Date Resolved Date NO SHOW 08/31/2014 07/12/2017 Balanitis 08/09/2009 02/23/2014 Redundant prepuce and phimosis 08/09/2009 02/23/2014 documented as of this encounter (statuses as of 07/24/2023) [facility] of Past illness Narrative* Problem Noted Date Diagnosed Date Resolved Date NO SHOW 08/31/2014 07/12/2017 Balanitis 08/09/2009 02/23/2014 Redundant prepuce and phimosis 08/09/2009 02/23/2014 documented as of this encounter (statuses as of 08/13/2023) [facility] History of Past illness Narrative* Problem Noted Date Diagnosed Date Resolved Date NO SHOW 08/31/2014 07/12/2017 Balanitis 08/09/2009 02/23/2014 Redundant prepuce and phimosis 08/09/2009 02/23/2014 documented as of this encounter (statuses as of 09/04/2023) [facility] of Past illness Narrative* Problem Noted Date Diagnosed Date Resolved Date NO SHOW 08/31/2014 07/12/2017 Balanitis 08/09/2009 02/23/2014 Redundant prepuce and phimosis 08/09/2009 02/23/2014 documented as of this encounter (statuses as of 09/16/2023) [facility] of Past illness Narrative* Problem Noted Date Diagnosed Date Resolved Date NO SHOW 08/31/2014 07/12/2017 Balanitis 08/09/2009 02/23/2014 Redundant prepuce and phimosis 08/09/2009 02/23/2014 documented as of this encounter (statuses as of 02/01/2024) [facility] of Past illness Narrative* Problem Noted Date Diagnosed Date Resolved Date NO SHOW 08/31/2014 07/12/2017 Balanitis 08/09/2009 02/23/2014 Redundant prepuce and phimosis 08/09/2009 02/23/2014 documented as of this encounter (statuses as of 02/28/2024) [facility] No data available for this section [facility] Evaluation note* Diagnosis Mild persistent asthma without complication- Primary Unspecified asthma Erectile dysfunction, unspecified erectile dysfunction type Encounter for preventative adult health care examination Tobacco abuse disorder Tobacco [facility] Erectile dysfunction, unspecified erectile dysfunction type- Primary Mild persistent asthma without complication Unspecified asthma Diarrhea, unspecified type Tobacco abuse disorder Tobacco use disorder [facility] Diagnosis Erectile dysfunction, unspecified erectile dysfunction type- Primary Schizoaffective disorder, unspecified type Hx of opioid abuse Opioid abuse, in remission [facility]* Diagnosis Vasculogenic erectile dysfunction, unspecified vasculogenic erectile dysfunction type- Primary Urinary frequency Microscopic hematuria [facility]* Diagnosis Vasculogenic erectile dysfunction, unspecified vasculogenic erectile dysfunction type Urinary frequency Microscopic hematuria [facility]* Diagnosis Vasculogenic erectile dysfunction, unspecified vasculogenic erectile dysfunction type- Primary Microscopic hematuria Kidney stone Calculus of kidney [facility]* Diagnosis Kidney stone Calculus of kidney Vasculogenic erectile dysfunction, unspecified vasculogenic erectile dysfunction type- Primary Elevated prolactin level Other and unspecified anterior pituitary hyperfunction Kidney stone Calculus of kidney Microscopic hematuria [facility] Diagnosis Elevated prolactin level- Primary Other and unspecified anterior pituitary hyperfunction Vasculogenic erectile dysfunction, unspecified vasculogenic erectile dysfunction type Kidney stone Calculus of kidney Microscopic hematuria [facility]* Diagnosis Elevated prolactin level Other and unspecified anterior pituitary hyperfunction [facility]* Diagnosis Anxiety and depression- Primary Dysthymic disorder documented in this encounter [facility] note* Diagnosis Erectile dysfunction, unspecified erectile dysfunction type- Primary Disorder of ejaculation Other specified disorder of male genital organs [facility]* Diagnosis Right flank pain- Primary Abdominal pain, unspecified site documented in this encounter [facility] note* Diagnosis Blood in semen- Primary Hematospermia Pain in both testicles Scrotal varices [facility] Diagnosis Encounter for sterilization- Primary Sterilization [facility] Diagnosis Encounter for sterilization- Primary Sterilization [facility] Diagnosis Blood in semen Hematospermia Scrotal varices Pain in both testicles Encounter for sterilization Sterilization [facility]* Diagnosis Testicular pain, right- Primary Unspecified disorder of male genital organs [facility]* Diagnosis Pain in testicle, unspecified laterality [N50.819]- Primary documented in this encounter [facility] note* Diagnosis Pain in testicle, unspecified laterality- Primary documented in this encounter [facility] note* Diagnosis Pain in testicle, unspecified laterality documented in this encounter [facility] note* Diagnosis Sore throat- Primary Acute pharyngitis Mild persistent asthma without complication Unspecified asthma documented in this encounter [facility] note* Diagnosis Exposure to chlamydia- Primary Contact with or exposure to venereal diseases Dysuria documented in this encounter [facility] note* Diagnosis Screening for STD (sexually transmitted disease)- Primary Screening examination for venereal disease STD exposure documented in this encounter [facility] note* Diagnosis Pelvic pain in male- Primary Abdominal pain, other specified site Pain in testicle, unspecified laterality Pelvic floor dysfunction Pelvic muscle wasting documented in this encounter [facility] note* Diagnosis Pelvic floor dysfunction- Primary Pelvic muscle wasting Impotence of organic origin documented in this encounter [facility] note* Diagnosis URI, acute- Primary Acute upper respiratory infections of unspecified site Acute cough URI, acute Acute upper respiratory infections of unspecified site Acute cough documented in this encounter [facility] note* Diagnosis URI, acute Acute upper respiratory infections of unspecified site Acute cough documented in this encounter [facility] note* Diagnosis Pelvic pain in male- Primary Abdominal pain, other specified site Pain in testicle, unspecified laterality Chronic constipation Unspecified constipation Bladder neck obstruction Retention of urine, unspecified Detrusor sphincter dyssynergia documented in this encounter [facility] note* Diagnosis Premature ejaculation- Primary Impotence of organic origin Pelvic floor dysfunction Pelvic muscle wasting Pain in testicle, unspecified laterality documented in this encounter [facility] note* Diagnosis Pelvic floor dysfunction- Primary Pelvic muscle wasting Impotence of organic origin documented in this encounter [facility] note* Diagnosis NO SHOW- [facility] Attachments The following attachments cannot be sent through Care Everywhere. * Anxiety Disorders: General Info ([place]uneian) [facility] Attachments The following attachments cannot be sent through Care Everywhere. * Relaxation Exercises (Dena Coto) ([place]uneian) [facility] No data available for this section [facility] Progress note No data available for this section [facility] Reason for referral (narrative)* Consultation (Routine) - New Request Specialty Diagnoses / Procedures Referred By Contac t Referred To Contact Urology Diagnoses Erectile dysfunction, unspecified erectile dysfunction type Shyam Harrison APRN-CNP [address] [place] [address] Referral ID Status Reason Start Date Expiration Date V isits Requested Visits Authorized [id number] New Request 01/10/2022 02/04/2023 1 1 [facility] for referral (narrative)* Consultation (Routine) - New Request Specialty Diagnoses / Procedures Referred By Contac t Referred To Contact Urology Diagnoses Erectile dysfunction, unspecified erectile dysfunction type Shyam Harrison APRN-MARCELLA [address] [place] [address] Referral ID Status Reason Start Date Expiration Date V isits Requested Visits Authorized [id number] New Request 02/10/2022 03/07/2023 1 1 [facility] for referral (narrative)* Consultation (Routine) - Open Specialty Diagnoses / Procedures Referred By Contac t Referred To Contact Diagnoses Erectile dysfunction, unspecified erectile dysfunction type Disorder of ejaculation Shyam Harrison APRN-CNP [address] [place] [address] Tamica Jenkins, MARCELLA [address] [place] [id number] Referral ID Status Reason Start Date Expiration Date Visits Re quested Visits Authorized [id number] Open 03/14/2023 04/07/2024 1 1 [facility] for referral (narrative)* Diagnostic Procedure Only (Routine) - Pending Review Specialty Diagnoses / Procedures Referred By Satnam t Referred To Contact US IMAGING Diagnoses Blood in semen Scrotal varices Pain in both testicles Procedures US DOPPLER COMPLETE DUP-SCAN ARTL JOSE ABDL/PEL/SCROT&/RPR ORGN COM Fauzia Sorenson PA-C [id number] [place] [address] [facility] Imaging Referral ID Status Reason Start Date Expiration Date Visits Requested Visits Authorized [id number] Pending Review Auto-Generat ed Referral 04/27/2023 05/26/2024 1 1 * Diagnostic Procedure Only (Routine) - Authorized Specialty Diagnoses / Procedures Referred By Satnam lott Referred To Contact US IMAGING Diagnoses Blood in semen Scrotal varices Pain in both testicles Procedures US SCROTUM AND CONTENTS US SCROTUM & CONTENTS Fauzia Sorenson PA-C [id number] [place] [id number] [facility] Imaging Referral ID Status Reason Start Date Expiration Date Visits Requested Visits Authorized [id number] Authorized Auto-Generat ed Referral 04/27/2023 05/26/2024 1 1 [facility] for referral (narrative)* Diagnostic Procedure Only (Routine) - Closed Specialty Diagnoses / Procedures Referred By Satnam lott Referred To Contact US IMAGING Diagnoses Blood in semen Scrotal varices Pain in both testicles Procedures US DOPPLER COMPLETE DUP-SCAN ARTL JOSE ABDL/PEL/SCROT&/RPR ORGN COM Fauzia Sorenson PA-C [address] [place] [address] [facility] [place] [address] Referral ID Status Reason Start Date Expiration Date V isits Requested Visits Authorized [id number] Closed Auto-Generate d Referral 04/30/2023 07/29/2023 1 1 * Diagnostic Procedure Only (Routine) - Closed Specialty Diagnoses / Procedures Referred By Satnam t Referred To Contact US IMAGING Diagnoses Blood in semen Scrotal varices Pain in both testicles Procedures US SCROTUM AND CONTENTS US SCROTUM & CONTENTS Fauzia Sorenson PA-C [address] [place] [id number] [facility] [place] [address] Referral ID Status Reason Start Date Expiration Date V isits Requested Visits Authorized [id number] Closed Auto-Generate d Referral 04/27/2023 05/26/2024 1 1 [facility] for referral (narrative)* Diagnostic Procedure Only (Routine) - Authorized Specialty Diagnoses / Procedures Referred By Satnam lott Referred To Contact US IMAGING Diagnoses Pain in testicle, unspecified laterality Procedures US DOPPLER COMPLETE DUP-SCAN ARTL JOSE ABDL/PEL/SCROT&/RPR ORGN COM Sonia Kramer PA-C [address], [place] [address] [facility] [place] [address] Referral ID Status Reason Start Date Expiration Date Visits Requested Visits Authorized [id number] Authorized Auto-Generat ed Referral 03/12/2024 04/11/2025 1 1 * Diagnostic Procedure Only (Routine) - Authorized Specialty Diagnoses / Procedures Referred By Satnam t Referred To Contact US IMAGING Diagnoses Pain in testicle, unspecified laterality Procedures US SCROTUM AND CONTENTS US SCROTUM & CONTENTS Sonia Kramer PA-C [address], [place] [address] [facility] Referral ID Status Reason Start Date Expiration Date Visits Requested Visits Authorized [id number] Authorized Auto-Generat ed Referral 03/12/2024 04/11/2025 1 1 [facility] Summary Purpose Family History No Family History Records FoundNo Family History Records FoundNo Family History Records FoundNo Family History Records FoundNo Family History Records Found No data available for this section No Family History Records FoundNo Family History Records Found No data available for this section No data available for this section No Family History Records FoundNo Family History Records FoundNo Family History Records FoundNo Family History Records Found Advance Directives No Advanced Directives Records FoundNo Advanced Directives Records FoundNo Advanced Directives Records FoundNo Advanced Directives Records FoundNo Advanced Directives Records FoundNo Advanced Directives Records FoundNo Advanced Directives Records FoundNo Advanced Directives Records FoundNo Advanced Directives Records FoundNo Advanced Directives Records FoundNo Advanced Directives Records Found Reason for Referral Status Reason Specialty Diagnoses / Procedures Referred By Contact Referred To Contact New Request Family Medicine Diagnoses Laceration of left middle finger without foreign body without damage to nail, initial encounter Jun Martinez MD [address] [place] [id number] Status Reason Specialty Diagnoses / Procedures Referred By Contact Referred To Contact New Request Family Medicine Diagnoses Chronic pain in testicle Camilo Phipps, DO [address] [place] [address] Specialty Diagnoses / Procedures Referred By Contac t Referred To Contact Diagnoses Vasculogenic erectile dysfunction, unspecified vasculogenic erectile dysfunction type Urinary frequency Microscopic hematuria Procedures US RENAL RETROPERITONEAL Hortencia Lira CNP [address] [place], [place] [id number] Referral ID Status Reason Start Date Expiration Date Visits Re quested Visits Authorized [id number] Closed 02/22/2022 03/19/2023 1 1 Specialty Diagnoses / Procedures Referred By Contac t Referred To Contact Hortencia Lira CNP [address] [place], [place] [id number] Referral ID Status Reason Start Date Expiration Date V isits Requested Visits Authorized [id number] Pending Review 1 1 Specialty Diagnoses / Procedures Referred By Contac t Referred To Contact Computerized Tomography Scan Diagnoses Kidney stone Procedures CT ABDOMEN/PELVIS WITHOUT CONTRAST CHG CT SCAN,ABDOMENT AND PELVIS,W/O CONTRAST Hortencia Lira CNP [address] [place] [address] Scan [address] [place] [address] Referral ID Status Reason Start Date Expiration Date V isits Requested Visits Authorized [id number] Pending Review 03/07/2022 04/01/2023 1 1 Referral ID Status Reason Start Date Expiration Date Visits Re quested Visits Authorized [id number] Closed 03/07/2022 04/01/2023 1 1 Specialty Diagnoses / Procedures Referred By Contac t Referred To Contact Diagnoses Elevated prolactin level Procedures MRI PITUITARY WITH AND WITHOUT CONTRAST WY MRI BRAIN ALEKSEYO Hortencia Lira CNP [address] [place], [place] [id number] Referral ID Status Reason Start Date Expiration Date V isits Requested Visits Authorized [id number] Auth Not Needed 03/29/2022 04/23/2023 1 1 Specialty Diagnoses / Procedures Referred By Contac t Referred To Contact Endocrinology, Diabetes & Metabolism Diagnoses Elevated prolactin level Hortencia Lira CNP [address] [place] [id number] Hugo Umana MD [address] [place] [id number] Referral ID Status Reason Start Date Expiration Date V isits Requested Visits Authorized [id number] New Request 03/29/2022 04/23/2023 1 1 Specialty Diagnoses / Procedures Referred By Contac t Referred To Contact Magnetic Resonance Imaging Diagnoses Elevated prolactin level Procedures MRI PITUITARY WITH AND WITHOUT CONTRAST WY MRI BRAIN COMBO Hortencia Lira CNP [address] [address] [address] [place] [address] Referral ID Status Reason Start Date Expiration Date Visits Re quested Visits Authorized [id number] Closed 03/29/2022 04/23/2023 1 1 Specialty Diagnoses / Procedures Referred By Contac t Referred To Contact [facility] Diagnoses Pelvic pain in male Pain in testicle, unspecified laterality Procedures CONSULT TO PHYSICAL THERAPY PHYSICAL THERAPY EVALUATION HIGH COMPLEX 45 MINS Fauzia Sorenson PA-C [address] [place] [address] [facility] [place] [address] [place] [address] Referral ID Status Reason Start Date Expiration Date Visits Requested Visits Authorized [id number] Pending Review Auto-Generat ed Referral 07/15/2024 07/15/2025 1 1 Discharge Instructions * Attachments The following attachments cannot be sent through Care Everywhere. * Hand Laceration: Stitches (Bruneian) documented in this encounter* Instructions* Camilo Phipps, DO - 07/16/2019 Follow-up with Dr. Garcia or the [facility] referral line to obtain further evaluation. 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, in remission Tobacco abuse disorder Tobacco use disorder Diagnosis Schizoaffective disorder, unspecified type- Primary Mild persistent asthma without complication Unspecified asthma Erectile dysfunction, unspecified erectile dysfunction type Hx of opioid abuse Opioid abuse, in remission 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, in remission Diagnosis Erectile dysfunction, unspecified erectile dysfunction type- Primary Mild persistent asthma without complication Unspecified asthma Tobacco abuse disorder Tobacco use disorder Diagnosis Erectile dysfunction, unspecified erectile dysfunction type- Primary Mild persistent asthma without complication Unspecified asthma Schizoaffective disorder, unspecified type Diagnosis Chronic pain in testicle- Primary Unspecified disorder of male genital organs Diagnosis Mild persistent asthma without complication- Primary Unspecified asthma Erectile dysfunction, unspecified erectile dysfunction type Tobacco abuse disorder Tobacco use disorder History of Present Illness * Shyam Harrison, COLLISION TECHNICIAN-DIRECTOR OF HOTEL OPERATIONS - 09/09/2020 10:30 AM EDT New Patient Visit Josafat Alvarenga [id number] 1985 09/09/2020 Chief Complaint Patient presents with New Patient Josafat is a 35 yo male here today to est. care with Shyam Harrison. Pt has no questions or concerns at this time. Pt would like medication refills on his albuterol and clodidine History of Present Illness: Josafat Alvarenga is a 35 y.o. male presenting for an evaluation to get est as new pt in the practice. Has not had a recent PCP. Was in a rehab and was given clonidine then. He was at [facility] in [facility]. He says that hehas a hx of drug addiction to Meth and Opiates. He went Jul 30 2020 and was there for 30 days and then released. He was given Clonidine while he was in-pt and then dc with a one month supply. He has 19 pills left. Asking for a refill of this. He says that he has not run out yet. He has not used any substance since being released from in-pt. No verbalized withdraw or cravings. Since out of rehab he is currently living in a sober living house in [place]. He will be there for 6 months. Following with [facility] and they are prescribing Invega. He has an apt with them on 09/23/20. Asthma- dx when he was 3. Flare up from time to time. Uses the albuterol as needed. Uses this everyday about 1-2 x per day. He says that this is just a habit of using it. Says that most of the time usually only uses it as needed for wheezing, but he has wheezing everyday so he uses it. Says when he was younger he used an neb machine everyday. Feels that his breathing is good right now. Is not currently on any maintenance inhalers. Currently smoking 1 ppd. He wants to quite. Tried to quite before with Chantix and patches and did not work. Has had lab work up to date and last done on 08/09/20 and reviewed. Nothing acute. Verbalizes that he is up to date on flu vaccination. History: Past Medical History: Diagnosis Date ADHD Asthma Schizophrenia Past Surgical History: Procedure Laterality Date EXCISION VARICOCELE ABDOMINAL APPROACH 2014 History reviewed. No pertinent family history. Social History Socioeconomic History Marital status: Single Spouse name: Not on file Number of children: Not on file Years of education: Not on file Highest education level: Not on file Occupational History Not on file Social Needs Financial resource strain: Not on file Food insecurity Worry: Not on file Inability: Not on file Transportation needs Medical: Not on file Non-medical: Not on file Tobacco Use Smoking status: Current Every Day Smoker Packs/day: 1.00 Types: Cigarettes Smokeless tobacco: Never Used Substance and Sexual Activity Alcohol use: No Drug use: No Sexual activity: Yes Partners: Female Lifestyle Physical activity Days per week: Not on file Minutes per session: Not on file Stress: Not on file Relationships Social connections Talks on phone: Not on file Gets together: Not on file Attends spiritism service: Not on file Active member of club or organization: Not on file Attends meetings of clubs or organizations: Not on file Relationship status: Not on file Intimate partner violence Fear of current or ex partner: Not on file Emotionally abused: Not on file Physically abused: Not on file Forced sexual activity: Not on file Other Topics Concern Not on file Social History Narrative Not on file Social History Tobacco Use Smoking Status Current Every Day Smoker Packs/day: 1.00 Types: Cigarettes Smokeless Tobacco Never Used Social History Substance and Sexual Activity Alcohol Use No Social History Substance and Sexual Activity Drug Use No Allergies: Flexeril [cyclobenzaprine] and Latex Home Medications: Current Outpatient Medications: albuterol 108 (90 Base) MCG/ACT Aero Soln inhaler, Inhale 2 puffs every 6 hours as needed for Shortness of Breath or Wheezing., Disp: 1 Inhaler, Rfl: 3 CLONIDINE-CHLORTHALIDONE PO, Take 40 mg by mouth 2 times daily., Disp: , Rfl: Paliperidone Palmitate (INVEGA TRINZA IM), Inject intramuscularly., Disp: , Rfl: diphenhydrAMINE 12.5 MG/5ML elixir, Take 50 mg by mouth daily., Disp: , Rfl: meloxicam 15 MG Tab tablet, Take 1 tablet by mouth daily., Disp: 30 tablet, Rfl: 0 Mometasone Furoate (Asmanex, 30 Metered Doses,) 110 MCG/INH Aerosol Powder, breath activated, Inhale 1 puff every evening at 6 PM., Disp: 1 Inhaler, Rfl: 3 ROS: Review of Systems Constitutional: Negative for activity change, appetite change, chills, diaphoresis, fatigue and fever. Respiratory: Negative for cough, chest tightness, shortness of breath and wheezing. Cardiovascular: Negative for chest pain, palpitations and leg swelling. Gastrointestinal: Negative for abdominal pain, constipation, diarrhea, nausea and vomiting. Skin: Negative for color change, rash and wound. Neurological: Negative for dizziness, tremors, facial asymmetry, weakness, light-headedness, numbness and headaches. Psychiatric/Behavioral: Negative for behavioral problems, dysphoric mood, sleep disturbance and suicidal ideas. The patient is not nervous/anxious. Physical Examination: Vital Signs: BP 102/70 Pulse 71 Temp 98 F (36.7 C) (Temporal) Resp 16 Ht 1.702 m (5' 7) Wt 72.6 kg (160 lb) BMI 25.06 kg/m Smoking Status Current Every Day Smoker Physical Exam Constitutional: General: He is awake. Appearance: Normal appearance. Cardiovascular: Rate and Rhythm: Normal rate and regular rhythm. Pulses: Normal pulses. No decreased pulses. Heart sounds: Normal heart sounds. Pulmonary: Effort: Pulmonary effort is normal. Breath sounds: Normal breath sounds. No decreased breath sounds or wheezing. Abdominal: General: Abdomen is flat. Bowel sounds are normal. Palpations: Abdomen is soft. Tenderness: There is no abdominal tenderness. Musculoskeletal: Right lower leg: No edema. Left lower leg: No edema. Lymphadenopathy: Head: Right side of head: No submental or submandibular adenopathy. Left side of head: No submental or submandibular adenopathy. Cervical: No cervical adenopathy. Skin: General: Skin is warm and dry. Capillary Refill: Capillary refill takes less than 2 seconds. Neurological: Mental Status: He is alert and oriented to person, place, and time. Sensory: Sensation is intact. Motor: Motor function is intact. Coordination: Coordination is intact. Gait: Gait is intact. Psychiatric: Attention and Perception: Attention normal. Mood and Affect: Mood normal. Mood is not anxious or depressed. Speech: Speech normal. Behavior: Behavior normal. Behavior is cooperative. Thought Content: Thought content normal. Thought content is not paranoid or delusional. Thought content does not include homicidal or suicidal ideation. Thought content does not include homicidal or suicidal plan. Cognition and Memory: Cognition normal. Judgment: Judgment normal. Laboratory and Additional Data Reviewed: Results for orders placed or performed during the hospital encounter of 07/16/19 URINALYSIS, MACRO Result Value Ref Range COLOR, URINE LIGHT YELLOW (A) YELLOW APPEARANCE, URINE CLEAR CLEAR SPECIFIC GRAVITY, URINE 1.015 1.010 - 1.025 PH URINE 5.5 5.0 - 7.0 PROTEIN, URINE NEGATIVE NEGATIVE mg/dl GLUCOSE, URINE NEGATIVE NEGATIVE mg/dl KETONES, URINE NEGATIVE NEGATIVE mg/dl BILIRUBIN, URINE NEGATIVE NEGATIVE BLOOD, URINE DIPSTICK NEGATIVE NEGATIVE NITRITES, URINE NEGATIVE NEGATIVE UROBILINOGEN, URINE 0.2 0.2 - 1.0 E.U./dL LEUKOCYTE ESTERASE, URINE NEGATIVE NEGATIVE No images are attached to the encounter. Assessment and Plan: Josafat Alvarenga is a 35 y.o. male that presented for evaluation to get est as a new pt in the practice. Hx of opioid and MET abuse. Recently in-pt for 30 days and released and now at a sober living house. Was given Clonidine/chlorithalidone. Asking for a refill. It is my understanding that after 2 wks this could be stopped. Discussed weaning off. Take 1 days for 7 days and then every other day for 7 days and then can stop. Follow up with [facility] and keep apt in September. Asthma- mild persistent. Using albuterol daily. No maintenance inhalers. -will begin on Asmanex daily for maintenance. -use albuterol as needed. Lab work is up to date. Flu vaccination up to date. Fu in 2 wks -med management after weaning. Fu as needed. Call the office for any questions or concerns. I did have discussion that if any medications are not covered or is not able to get the medications to call the office and let us know so other alternative/arrangements can be made. Josafat was seen today for new patient. Diagnoses and all orders for this visit: Encounter for medical examination to establish care Mild persistent asthma without complication - Mometasone Furoate (Asmanex, 30 Metered Doses,) 110 MCG/INH Aerosol Powder, breath activated; Inhale 1 puff every evening at 6 PM. - albuterol 108 (90 Base) MCG/ACT Aero Soln inhaler; Inhale 2 puffs every 6 hours as needed for Shortness of Breath or Wheezing. Hx of opioid abuse History of methamphetamine abuse Tobacco abuse disorder RAVEN Pettit * Pao Leblanc - 09/09/2020 10:30 AM EDT Nurse Note: Review of Systems Constitutional: Negative for fatigue, fever and unexpected weight change. HENT: Negative for congestion and ear pain. Eyes: Negative for pain and redness. Respiratory: Positive for wheezing. Negative for cough and shortness of breath. Cardiovascular: Negative for chest pain and palpitations. Gastrointestinal: Negative for abdominal pain, constipation, diarrhea and nausea. Genitourinary: Negative for difficulty urinating and dysuria. Musculoskeletal: Negative for arthralgias and myalgias. Skin: Negative for rash and wound. Neurological: Negative for dizziness and headaches. All other systems reviewed and are negative. Nursing Assessment: Physical Exam documented in this encounter* Shyam Harrison, COLLISION TECHNICIAN-DIRECTOR OF HOTEL OPERATIONS - 09/23/2020 10:30 AM EST Follow Up Visit Josafat Alvarenga [id number] 1985 09/23/2020 Chief Complaint Patient presents with Medication Management 2 week fu History of Present Illness: Josafat Alvarenga is a 35 y.o. male presenting for follow up. Last visit plan: Hx of opioid and MET abuse. Recently in-pt for 30 days and released and now at a sober living house. Was given Clonidine/chlorithalidone. Asking for a refill. It is my understanding that after 2 wks this could be stopped. Discussed weaning off. Take 1 days for 7 days and then every other day for 7 days and then can stop. Follow up with [facility] and keep apt in September. Asthma- mild persistent. Using albuterol daily. No maintenance inhalers. -will begin on Asmanex daily for maintenance. -use albuterol as needed. Lab work is up to date. Flu vaccination up to date. Fu in 2 wks -med management after weaning. Fu as needed. Today: Here for 2 wk follow up. Was in a rehab and was given clonidine then. He was at [facility] in [facility]. He says that hehas a hx of drug addiction to Meth and Opiates. He went Jul 30 2020 and was there for 30 days and then released. He was given Clonidine while he was in-pt and then dc with a one month supply. This was tapered and stopped. He is not taking this. Says that she has been feeling fine. He has not used any substance since being released from in-pt. No verbalized withdraw or cravings. Since out of rehab he is currently living in a sober living house in [place]. He will be there for 6 months. He has an apt with [facility] later today. Asthma- dx when he was 3 yo. Flare up from time to time. Uses the albuterol as needed. was using this everyday about 1-2 x per day. He says that this is just a habit of using it. Says that most of the time usually only uses it as needed for wheezing, but he has wheezing everyday so he uses it. Says when he was younger he used an neb machine everyday. Last visit he was started on Asmanex daily. Has been taking as prescribed. No se. No adverse effects. Says that the inhaler has really helped him. Is now only using the albuterol as needed and has not really need to use that. Feels that his breathing is improved. Currently smoking 1 ppd. He wants to quite. Tried to quite before with Chantix and patches and did not work. ED- says that he wants to be sexually active but is not able to get an erection. Onset a few monthsago when he stared the Invega injections. He feels that it is related to the Invega. He is getting this injection with [facility]. He says that the mediation is working he is taking this forschizoeffective disorder. He has been on lots of other meds in the past and they did not work as well. He would like to stay on this medication. He is able to get erection occ but not all of the time. Not able to maintain an erection. When he does get an erection it will only last for about 5 min. He says that he does wake up in the AM with an erection and will last until he urinates. No pain. No testicular pain. No cp or sob. No heart hx. bp is good. Has never needed anything in the past for ED. Is asking for something to help with this. He is currently in a relationship and this is affecting that relationship. He sees [facility] today at 3 pm. He was encouraged to talk about his concerns related to the injection with them at his apt today. History: Past Medical History: Diagnosis Date ADHD Asthma Schizophrenia Past Surgical History: Procedure Laterality Date EXCISION VARICOCELE ABDOMINAL APPROACH 2015 History reviewed. No pertinent family history. Social History Socioeconomic History Marital status: Single Spouse name: Not on file Number of children: Not on file Years of education: Not on file Highest education level: Not on file Occupational History Not on file Social Needs Financial resource strain: Not on file Food insecurity Worry: Not on file Inability: Not on file Transportation needs Medical: Not on file Non-medical: Not on file Tobacco Use Smoking status: Current Every Day Smoker Packs/day: 1.00 Types: Cigarettes Smokeless tobacco: Never Used Substance and Sexual Activity Alcohol use: No Drug use: No Sexual activity: Yes Partners: Female Lifestyle Physical activity Days per week: Not on file Minutes per session: Not on file Stress: Not on file Relationships Social connections Talks on phone: Not on file Gets together: Not on file Attends spiritism service: Not on file Active member of club or organization: Not on file Attends meetings of clubs or organizations: Not on file Relationship status: Not on file Intimate partner violence Fear of current or ex partner: Not on file Emotionally abused: Not on file Physically abused: Not on file Forced sexual activity: Not on file Other Topics Concern Not on file Social History Narrative Not on file Social History Tobacco Use Smoking Status Current Every Day Smoker Packs/day: 1.00 Types: Cigarettes Smokeless Tobacco Never Used Social History Substance and Sexual Activity Alcohol Use No Social History Substance and Sexual Activity Drug Use No Allergies: Flexeril [cyclobenzaprine] and Latex Home Medications: Current Outpatient Medications: albuterol 108 (90 Base) MCG/ACT Aero Soln inhaler, Inhale 2 puffs every 6 hours as needed for Shortness of Breath or Wheezing., Disp: 1 Inhaler, Rfl: 3 Mometasone Furoate (Asmanex, 30 Metered Doses,) 110 MCG/INH Aerosol Powder, breath activated, Inhale 1 puff every evening at 6 PM., Disp: 1 Inhaler, Rfl: 3 Paliperidone Palmitate (INVEGA TRINZA IM), Inject intramuscularly., Disp: , Rfl: diphenhydrAMINE 12.5 MG/5ML elixir, Take 50 mg by mouth daily., Disp: , Rfl: sildenafil citrate 50 MG tablet, Take 1 tablet by mouth daily as needed for Erectile Dysfunction., Disp: 30 tablet, Rfl: 0 ROS: Review of Systems Constitutional: Negative for activity change, appetite change, chills, diaphoresis, fatigue and fever. Respiratory: Negative for cough, chest tightness, shortness of breath and wheezing. Cardiovascular: Negative for chest pain, palpitations and leg swelling. Gastrointestinal: Negative for abdominal pain, constipation, diarrhea, nausea and vomiting. Genitourinary: Negative for difficulty urinating, discharge, flank pain, frequency, hematuria, penile pain, scrotal swelling, testicular pain and urgency. ED Skin: Negative for color change, rash and wound. Neurological: Negative for dizziness, tremors, facial asymmetry, weakness, light-headedness, numbness and headaches. Psychiatric/Behavioral: Negative for behavioral problems, dysphoric mood, sleep disturbance and suicidal ideas. The patient is not nervous/anxious. Physical Examination: Vital Signs: BP 118/80 (BP Location: Right arm, BP Position: Sitting) Pulse 88 Temp 97.9 F (36.6 C) (Temporal) Resp 16 Ht 1.702 m (5' 7) Wt 71.7 kg (158 lb) BMI 24.75 kg/m Smoking Status Current Every Day Smoker Physical Exam Constitutional: General: He is awake. Appearance: Normal appearance. Cardiovascular: Rate and Rhythm: Normal rate and regular rhythm. Pulses: Normal pulses. No decreased pulses. Heart sounds: Normal heart sounds. Pulmonary: Effort: Pulmonary effort is normal. No accessory muscle usage, prolonged expiration or respiratory distress. Breath sounds: Normal breath sounds. No decreased breath sounds or wheezing. Abdominal: General: Abdomen is flat. Bowel sounds are normal. Palpations: Abdomen is soft. Tenderness: There is no abdominal tenderness. Musculoskeletal: Right lower leg: No edema. Left lower leg: No edema. Skin: General: Skin is warm and dry. Capillary Refill: Capillary refill takes less than 2 seconds. Neurological: Mental Status: He is alert and oriented to person, place, and time. Sensory: Sensation is intact. Motor: Motor function is intact. Coordination: Coordination is intact. Gait: Gait is intact. Psychiatric: Attention and Perception: Attention normal. Mood and Affect: Mood normal. Mood is not anxious or depressed. Speech: Speech normal. Behavior: Behavior normal. Behavior is cooperative. Thought Content: Thought content normal. Thought content is not paranoid or delusional. Thought content does not include homicidal or suicidal ideation. Thought content does not include homicidal or suicidal plan. Cognition and Memory: Cognition normal. Judgment: Judgment normal. Laboratory and Additional Data Reviewed: Results for orders placed or performed during the hospital encounter of 07/16/19 URINALYSIS, MACRO Result Value Ref Range COLOR, URINE LIGHT YELLOW (A) YELLOW APPEARANCE, URINE CLEAR CLEAR SPECIFIC GRAVITY, URINE 1.015 1.010 - 1.025 PH URINE 5.5 5.0 - 7.0 PROTEIN, URINE NEGATIVE NEGATIVE mg/dl GLUCOSE, URINE NEGATIVE NEGATIVE mg/dl KETONES, URINE NEGATIVE NEGATIVE mg/dl BILIRUBIN, URINE NEGATIVE NEGATIVE BLOOD, URINE DIPSTICK NEGATIVE NEGATIVE NITRITES, URINE NEGATIVE NEGATIVE UROBILINOGEN, URINE 0.2 0.2 - 1.0 E.U./dL LEUKOCYTE ESTERASE, URINE NEGATIVE NEGATIVE No images are attached to the encounter. Assessment and Plan: Josafat Alvarenga is a 35 y.o. male that presents for follow up. Mood- chronic. Stable. Schizoaffective disorder. On Invega. Says that it is helping. [facility] -[facility] today. Asthma- chronic. Improved with inhaler. Taking as prescribed. Not using the albuterol inhaler as much. -cont Asmanex inhaler daily. -cont albuterol as needed. ED- diff getting and maintaining and erection. Feels this is related to the Invega injections. In a sexual relationship and would like something to help with this. Did have discussion about the risks of taking any erectile dysfunction medication. He verbalizes understanding. I did discuss with him that this is a vasoconstrictor medication. Side effects could include but not limited to headache, chest pain, prolonged erection. I will have lab work checked. If lab work is okay he would like medications sent in. I did discuss with him the risks of taking this medication given his history of chronic medical problems. He verbalizes understanding. I did make you aware that he cannot take this medication with nitroglycerin. Hestates that he does not take this medication. I did discuss with him that if he has chest pain or shortness of breath or erection lasting longer than 4 hours he has to go to the emergency department.If this ever happens he needs to alert his other healthcare providers that he is taking medication and avoid nitroglycerin when taking this kind of ED med. -will try Viagra. Fu in 1 month. -ED and medical management with Viagra. Fu as needed. Call the office for any questions or concerns. I did have discussion that if any medications are not covered or is not able to get the medications to call the office and let us know so other alternative/arrangements can be made. Josafat was seen today for medication management. Diagnoses and all orders for this visit: Schizoaffective disorder, unspecified type Mild persistent asthma without complication Erectile dysfunction, unspecified erectile dysfunction type - Discontinue: sildenafil citrate 50 MG tablet; Take 1 tablet by mouth daily as needed for ErectileDysfunction. - sildenafil citrate 50 MG tablet; Take 1 tablet by mouth daily as needed for Erectile Dysfunction. Hx of opioid abuse History of methamphetamine abuse RAVEN Pettit documented in this encounter* Shyam Harrison APRN-CNP - 10/21/2020 2:10 PM EST Follow Up Visit Josafat Alvarenga [id number] 1985 10/21/2020 Chief Complaint Patient presents with Schizophrenia Pt states that his medication costs over $900 and he has not taken any History of Present Illness: Josafat Alvarenga is a 35 y.o. male presenting for follow up. Last visit plan: Mood- chronic. Stable. Schizoaffective disorder. On Invega. Says that it is helping. [facility] -has [facility] today. Asthma- chronic. Improved with inhaler. Taking as prescribed. Not using the albuterol inhaler as much. -cont Asmanex inhaler daily. -cont albuterol as needed. ED- diff getting and maintaining and erection. Feels this is related to the Invega injections. In a sexual relationship and would like something to help with this. Did have discussion about the risks of taking any erectile dysfunction medication. He verbalizes understanding. I did discuss with him that this is a vasoconstrictor medication. Side effects could include but not limited to headache, chest pain, prolonged erection. I will have lab work checked. If lab work is okay he would like medications sent in. I did discuss with him the risks of taking this medication given his history of chronic medical problems. He verbalizes understanding. I did make you aware that he cannot take this medication with nitroglycerin. Hestates that he does not take this medication. I did discuss with him that if he has chest pain or shortness of breath or erection lasting longer than 4 hours he has to go to the emergency department.If this ever happens he needs to alert his other healthcare providers that he is taking medication and avoid nitroglycerin when taking this kind of ED med. -will try Viagra. Fu in 1 month. -ED and medical management with Viagra. Fu as needed. Today: Here for follow up on med management for ED. ED- says that he wants to be sexually active but is not able to get an erection. Onset a few monthsago when he stared the Invega injections. He feels that it is related to the Invega. He is getting this injection with [facility]. He says that the mediation is working he is taking this forschizoeffective disorder. He has been on lots of other meds in the past and they did not work as well. He would like to stay on this medication. He is able to get erection occ but not all of the time. Not able to maintain an erection. When he does get an erection it will only last for about 5 min. He says that he does wake up in the AM with an erection and will last until he urinates. No pain. No testicular pain. No cp or sob. No heart hx. bp is good. Has never needed anything in the past for ED. Is asking for something to help with this. He is currently in a relationship and this is affecting that relationship. Last visit he was prescribed Viagra. Says that when he went to get this it was $980 and was not able to afford. He was given information for [facility] to get cheaper but did not try that yet. He has not been taking anything at this time. Nothing really to fu with today. Asking for a refill of his asthma inhalers. They are helping. Nothing else acute today. History: Past Medical History: Diagnosis Date ADHD Asthma Schizophrenia Past Surgical History: Procedure Laterality Date EXCISION VARICOCELE ABDOMINAL APPROACH 2014 History reviewed. No pertinent family history. Social History Socioeconomic History Marital status: Single Spouse name: Not on file Number of children: Not on file Years of education: Not on file Highest education level: Not on file Occupational History Not on file Social Needs Financial resource strain: Not on file Food insecurity Worry: Not on file Inability: Not on file Transportation needs Medical: Not on file Non-medical: Not on file Tobacco Use Smoking status: Current Every Day Smoker Packs/day: 1.00 Types: Cigarettes Smokeless tobacco: Never Used Substance and Sexual Activity Alcohol use: No Drug use: No Sexual activity: Yes Partners: Female Lifestyle Physical activity Days per week: Not on file Minutes per session: Not on file Stress: Not on file Relationships Social connections Talks on phone: Not on file Gets together: Not on file Attends spiritism service: Not on file Active member of club or organization: Not on file Attends meetings of clubs or organizations: Not on file Relationship status: Not on file Intimate partner violence Fear of current or ex partner: Not on file Emotionally abused: Not on file Physically abused: Not on file Forced sexual activity: Not on file Other Topics Concern Not on file Social History Narrative Not on file Social History Tobacco Use Smoking Status Current Every Day Smoker Packs/day: 1.00 Types: Cigarettes Smokeless Tobacco Never Used Social History Substance and Sexual Activity Alcohol Use No Social History Substance and Sexual Activity Drug Use No Allergies: Flexeril [cyclobenzaprine] and Latex Home Medications: Current Outpatient Medications: albuterol 108 (90 Base) MCG/ACT Aero Soln inhaler, Inhale 2 puffs every 6 hours as needed for Shortness of Breath or Wheezing., Disp: 1 Inhaler, Rfl: 3 diphenhydrAMINE 12.5 MG/5ML elixir, Take 50 mg by mouth daily., Disp: , Rfl: Mometasone Furoate (Asmanex, 30 Metered Doses,) 110 MCG/INH Aerosol Powder, breath activated, Inhale 1 puff every evening at 6 PM., Disp: 1 Inhaler, Rfl: 3 Paliperidone Palmitate (INVEGA TRINZA IM), Inject intramuscularly., Disp: , Rfl: sildenafil citrate 50 MG tablet, Take 1 tablet by mouth daily as needed for Erectile Dysfunction., Disp: 30 tablet, Rfl: 0 ROS: Review of Systems Constitutional: Negative for activity change, appetite change, chills, diaphoresis, fatigue and fever. Respiratory: Negative for cough, chest tightness, shortness of breath and wheezing. Cardiovascular: Negative for chest pain, palpitations and leg swelling. Gastrointestinal: Negative for abdominal pain, constipation, diarrhea, nausea and vomiting. Genitourinary: Negative for difficulty urinating, discharge, flank pain, frequency, hematuria, penile pain, scrotal swelling, testicular pain and urgency. ED Skin: Negative for color change, rash and wound. Neurological: Negative for dizziness, tremors, facial asymmetry, weakness, light-headedness, numbness and headaches. Psychiatric/Behavioral: Negative for behavioral problems, dysphoric mood, sleep disturbance and suicidal ideas. The patient is not nervous/anxious. Physical Examination: Vital Signs: BP 102/68 (BP Location: Left arm, BP Position: Sitting) Pulse 111 Temp 98.1 F (36.7 C) (Temporal) Ht 1.702 m (5' 7) Wt 77.3 kg (170 lb 6.4 oz) BMI 26.69 kg/m Smoking Status Current EveryDay Smoker Physical Exam Constitutional: General: He is awake. Appearance: Normal appearance. Cardiovascular: Rate and Rhythm: Normal rate. Pulmonary: Effort: Pulmonary effort is normal. No accessory muscle usage, prolonged expiration or respiratory distress. Skin: General: Skin is warm and dry. Capillary Refill: Capillary refill takes less than 2 seconds. Neurological: Mental Status: He is alert and oriented to person, place, and time. Coordination: Coordination is intact. Gait: Gait is intact. Psychiatric: Attention and Perception: Attention normal. Mood and Affect: Mood normal. Mood is not anxious or depressed. Speech: Speech normal. Behavior: Behavior normal. Behavior is cooperative. Thought Content: Thought content normal. Thought content is not paranoid or delusional. Thought content does not include homicidal or suicidal ideation. Thought content does not include homicidal or suicidal plan. Cognition and Memory: Cognition normal. Judgment: Judgment normal. Laboratory and Additional Data Reviewed: Results for orders placed or performed during the hospital encounter of 07/16/19 URINALYSIS, MACRO Result Value Ref Range COLOR, URINE LIGHT YELLOW (A) YELLOW APPEARANCE, URINE CLEAR CLEAR SPECIFIC GRAVITY, URINE 1.015 1.010 - 1.025 PH URINE 5.5 5.0 - 7.0 PROTEIN, URINE NEGATIVE NEGATIVE mg/dl GLUCOSE, URINE NEGATIVE NEGATIVE mg/dl KETONES, URINE NEGATIVE NEGATIVE mg/dl BILIRUBIN, URINE NEGATIVE NEGATIVE BLOOD, URINE DIPSTICK NEGATIVE NEGATIVE NITRITES, URINE NEGATIVE NEGATIVE UROBILINOGEN, URINE 0.2 0.2 - 1.0 E.U./dL LEUKOCYTE ESTERASE, URINE NEGATIVE NEGATIVE No images are attached to the encounter. Assessment and Plan: Josafat Alvarenga is a 35 y.o. male that presents for follow up for ED. ED- meds sent last visit to try and fu today to see if helped. Did not get dt cost-not able to afford. diff getting and maintaining and erection. Feels this is related to the Invega injections. In a sexual relationship and would like something to help with this. Did have discussion about the risks of taking any erectile dysfunction medication. He verbalizes understanding. I did discuss with him that this is a vasoconstrictor medication. Side effects could include but not limited to headache, chest pain, prolonged erection. I will have lab work checked. If lab work is okay he would like medications sent in. I did discuss with him the risks of taking this medication given his history of chronic medical problems. He verbalizes understanding. I did make you aware that he cannot take this medication with nitroglycerin. Hestates that he does not take this medication. I did discuss with him that if he has chest pain or shortness of breath or erection lasting longer than 4 hours he has to go to the emergency department.If this ever happens he needs to alert his other healthcare providers that he is taking medication and avoid nitroglycerin when taking this kind of ED med. -will try resend Viagra and see if is able to aford with instructions on how to get through [facility]. Will refill inhalers for asthma. Fu in 1 month -ED and med management. Fu as needed. Call the office for any questions or concerns. I did have discussion that if any medications are not covered or is not able to get the medications to call the office and let us know so other alternative/arrangements can be made. Josafat was seen today for schizophrenia. Diagnoses and all orders for this visit: Erectile dysfunction, unspecified erectile dysfunction type - sildenafil citrate 50 MG tablet; Take 1 tablet by mouth daily as needed for Erectile Dysfunction. Mild persistent asthma without complication - Mometasone Furoate (Asmanex, 30 Metered Doses,) 110 MCG/INH Aerosol Powder, breath activated; Inhale 1 puff every evening at 6 PM. Tobacco abuse disorder [facility]AV[facility] Pettit documented in this encounter* Shyam Harrison APRN-CNP - 11/18/2020 9:10 AM EST Follow Up Visit Josafat Alvarenga [id number] 1985 11/18/2020 Chief Complaint Patient presents with Other 1 month follow up History of Present Illness: Josafat Alavrenga is a 35 y.o. male presenting for follow up. Last visit plan: ED- meds sent last visit to try and fu today to see if helped. Did not get dt cost-not able to afford. diff getting and maintaining and erection. Feels this is related to the Invega injections. In a sexual relationship and would like something to help with this. Did have discussion about the risks of taking any erectile dysfunction medication. He verbalizes understanding. I did discuss with him that this is a vasoconstrictor medication. Side effects could include but not limited to headache, chest pain, prolonged erection. I will have lab work checked. If lab work is okay he would like medications sent in. I did discuss with him the risks of taking this medication given his history of chronic medical problems. He verbalizes understanding. I did make you aware that he cannot take this medication with nitroglycerin. Hestates that he does not take this medication. I did discuss with him that if he has chest pain or shortness of breath or erection lasting longer than 4 hours he has to go to the emergency department.If this ever happens he needs to alert his other healthcare providers that he is taking medication and avoid nitroglycerin when taking this kind of ED med. -will try resend Viagra and see if is able to aford with instructions on how to get through [facility]. Will refill inhalers for asthma. Fu in 1 month -ED and med management. Fu as needed. Today: Here for follow up on med management for ED. ED- says that he wants to be sexually active but is not able to get an erection. Onset a few monthsago when he stared the Invega injections. He feels that it is related to the Invega. He is getting this injection with [facility]. He says that the mediation is working he is taking this forschizoeffective disorder. He has been on lots of other meds in the past and they did not work as well. He would like to stay on this medication. He is able to get erection occ but not all of the time. Not able to maintain an erection. When he does get an erection it will only last for about 5 min. He says that he does wake up in the AM with an erection and will last until he urinates. No pain. No testicular pain. No cp or sob. No heart hx. bp is good. Has never needed anything in the past for ED. He is currently in a relationship and this is affecting that relationship. Last visit he was prescribed Viagra. Has used this 2 x since prescribed. States that it helped somebut he was still not able to get a full erection. Asking for a refill of his asthma inhalers. They are helping. Nothing else acute today. History: Past Medical History: Diagnosis Date ADHD Asthma Schizophrenia Past Surgical History: Procedure Laterality Date EXCISION VARICOCELE ABDOMINAL APPROACH 2015 History reviewed. No pertinent family history. Social History Socioeconomic History Marital status: Single Spouse name: Not on file Number of children: Not on file Years of education: Not on file Highest education level: Not on file Occupational History Not on file Social Needs Financial resource strain: Not on file Food insecurity Worry: Not on file Inability: Not on file Transportation needs Medical: Not on file Non-medical: Not on file Tobacco Use Smoking status: Current Every Day Smoker Packs/day: 1.00 Types: Cigarettes Smokeless tobacco: Never Used Substance and Sexual Activity Alcohol use: No Drug use: No Sexual activity: Yes Partners: Female Lifestyle Physical activity Days per week: Not on file Minutes per session: Not on file Stress: Not on file Relationships Social connections Talks on phone: Not on file Gets together: Not on file Attends spiritism service: Not on file Active member of club or organization: Not on file Attends meetings of clubs or organizations: Not on file Relationship status: Not on file Intimate partner violence Fear of current or ex partner: Not on file Emotionally abused: Not on file Physically abused: Not on file Forced sexual activity: Not on file Other Topics Concern Not on file Social History Narrative Not on file Social History Tobacco Use Smoking Status Current Every Day Smoker Packs/day: 1.00 Types: Cigarettes Smokeless Tobacco Never Used Social History Substance and Sexual Activity Alcohol Use No Social History Substance and Sexual Activity Drug Use No Allergies: Flexeril [cyclobenzaprine] and Latex Home Medications: Current Outpatient Medications: albuterol 108 (90 Base) MCG/ACT Aero Soln inhaler, Inhale 2 puffs every 6 hours as needed for Shortness of Breath or Wheezing., Disp: 1 Inhaler, Rfl: 3 diphenhydrAMINE 12.5 MG/5ML elixir, Take 50 mg by mouth daily., Disp: , Rfl: Mometasone Furoate (Asmanex, 30 Metered Doses,) 110 MCG/INH Aerosol Powder, breath activated, Inhale 1 puff every evening at 6 PM., Disp: 1 Inhaler, Rfl: 3 Paliperidone Palmitate (INVEGA TRINZA IM), Inject intramuscularly., Disp: , Rfl: sildenafil citrate 50 MG tablet, Take 1 tablet by mouth daily as needed for Erectile Dysfunction., Disp: 30 tablet, Rfl: 0 ROS: Review of Systems Constitutional: Negative for activity change, appetite change, chills, diaphoresis, fatigue and fever. Respiratory: Negative for cough, chest tightness, shortness of breath and wheezing. Cardiovascular: Negative for chest pain, palpitations and leg swelling. Gastrointestinal: Negative for abdominal pain, constipation, diarrhea, nausea and vomiting. Genitourinary: Negative for difficulty urinating, discharge, flank pain, frequency, hematuria, penile pain, scrotal swelling, testicular pain and urgency. ED Skin: Negative for color change, rash and wound. Neurological: Negative for dizziness, tremors, facial asymmetry, weakness, light-headedness, numbness and headaches. Psychiatric/Behavioral: Negative for behavioral problems, dysphoric mood, sleep disturbance and suicidal ideas. The patient is not nervous/anxious. Physical Examination: Vital Signs: BP 115/78 (BP Location: Right arm, BP Position: Sitting) Pulse 90 Temp 98.3 F (36.8 C) (Temporal) Ht 1.702 m (5' 7) Wt 76 kg (167 lb 9.6 oz) BMI 26.25 kg/m Smoking Status Current Every Day Smoker Physical Exam Constitutional: General: He is awake. Appearance: Normal appearance. Cardiovascular: Rate and Rhythm: Normal rate. Pulmonary: Effort: Pulmonary effort is normal. No accessory muscle usage, prolonged expiration or respiratory distress. Skin: General: Skin is warm and dry. Capillary Refill: Capillary refill takes less than 2 seconds. Neurological: Mental Status: He is alert and oriented to person, place, and time. Coordination: Coordination is intact. Gait: Gait is intact. Psychiatric: Attention and Perception: Attention normal. Mood and Affect: Mood normal. Mood is not anxious or depressed. Speech: Speech normal. Behavior: Behavior normal. Behavior is cooperative. Thought Content: Thought content normal. Thought content is not paranoid or delusional. Thought content does not include homicidal or suicidal ideation. Thought content does not include homicidal or suicidal plan. Cognition and Memory: Cognition normal. Judgment: Judgment normal. Laboratory and Additional Data Reviewed: Results for orders placed or performed during the hospital encounter of 07/16/19 URINALYSIS, MACRO Result Value Ref Range COLOR, URINE LIGHT YELLOW (A) YELLOW APPEARANCE, URINE CLEAR CLEAR SPECIFIC GRAVITY, URINE 1.015 1.010 - 1.025 PH URINE 5.5 5.0 - 7.0 PROTEIN, URINE NEGATIVE NEGATIVE mg/dl GLUCOSE, URINE NEGATIVE NEGATIVE mg/dl KETONES, URINE NEGATIVE NEGATIVE mg/dl BILIRUBIN, URINE NEGATIVE NEGATIVE BLOOD, URINE DIPSTICK NEGATIVE NEGATIVE NITRITES, URINE NEGATIVE NEGATIVE UROBILINOGEN, URINE 0.2 0.2 - 1.0 E.U./dL LEUKOCYTE ESTERASE, URINE NEGATIVE NEGATIVE No images are attached to the encounter. Assessment and Plan: Josafat Alvarenga is a 35 y.o. male that presents for follow up for ED. ED- meds sent last visit to try and fu today to see if helped. Has used 2 x and helped some. Was still not able to get a full erection that lasted like he wanted. diff getting and maintaining and erection. Feels this is related to the Invega injections. In a sexual relationship and would like something to help with this. Did have discussion about the risks of taking any erectile dysfunction medication. He verbalizes understanding. I did discuss with him that this is a vasoconstrictor medication. Side effects could include but not limited to headache, chest pain, prolonged erection. I did make you aware that he cannot take this medication with nitroglycerin. He states that he doesnot take this medication. I did discuss with him that if he has chest pain or shortness of breath or erection lasting longer than 4 hours he has to go to the emergency department. If this ever happens he needs to alert his other healthcare providers that he is taking medication and avoid nitroglycerin when taking this kind of ED med. -can cont viagra 50-100 mg as needed. Asking for refill on asthma inhalers. In oct they were filled with refills and he should have refills available at he pharmacy. Fu in 3 months -ED and med management. -asthma med management. bw is needed. Fu as needed. Call the office for any questions or concerns. I did have discussion that if any medications are not covered or is not able to get the medications to call the office and let us know so other alternative/arrangements can be made. Josafat was seen today for other. Diagnoses and all orders for this visit: Erectile dysfunction, unspecified erectile dysfunction type Mild persistent asthma without complication Schizoaffective disorder, unspecified type RAVEN Pettit documented in this encounter* Shyam Harrison APRN-CNP - 02/16/2021 1:10 PM EDT Follow Up Visit Josafat Alvarenga [id number] 1985 02/16/2021 Chief Complaint Patient presents with Asthma Other Pt c/o a painful lump in his RT breast for the past month, stable History of Present Illness: Josafat Alvarenga is a 35 y.o. male presenting for follow up. Last visit plan: ED- meds sent last visit to try and fu today to see if helped. Has used 2 x and helped some. Was still not able to get a full erection that lasted like he wanted. diff getting and maintaining and erection. Feels this is related to the Invega injections. In a sexual relationship and would like something to help with this. Did have discussion about the risks of taking any erectile dysfunction medication. He verbalizes understanding. I did discuss with him that this is a vasoconstrictor medication. Side effects could include but not limited to headache, chest pain, prolonged erection. I did make you aware that he cannot take this medication with nitroglycerin. He states that he doesnot take this medication. I did discuss with him that if he has chest pain or shortness of breath or erection lasting longer than 4 hours he has to go to the emergency department. If this ever happens he needs to alert his other healthcare providers that he is taking medication and avoid nitroglycerin when taking this kind of ED med. -can cont viagra 50-100 mg as needed. Asking for refill on asthma inhalers. In oct they were filled with refills and he should have refills available at he pharmacy. Fu in 3 months -ED and med management. -asthma med management. bw is needed. Fu as needed. Today: Here for chronic 3 month fu. ED- still diff getting and maintaining an erection. Has been using the medication as prescribed. Nose from the meds. No cp, khanna, or sob with medication use. viagra is not working. Current dose of 50 mg as needed. Asthma- dx when he was 3 yo. Flares up from time to time. Uses the albuterol as needed. was using this everyday about 1-2 x per day. He says that this is just a habit of using it. Says that most of the time usually only uses it as needed for wheezing, but he has wheezing everyday so he uses it. Says when he was younger he used an neb machine everyday. Last visit he was started on Asmanex daily. Has been taking as prescribed. No se. No adverse effects. Says that the inhaler has really helped him. Is now only using the albuterol as needed and has not really need to use that. Feels that his breathing is controlled. Currently smoking 1 ppd. He wants to quite. Tried to quite before with Chantix and patches and did not work. Acute: Painful lump to the right breast area. Began last month. Does not feel it right now. subj was painful to the touch. Was not red, warm, or draining. must have gone away now History: Past Medical History: Diagnosis Date ADHD Asthma Schizophrenia Past Surgical History: Procedure Laterality Date EXCISION VARICOCELE ABDOMINAL APPROACH 2014 History reviewed. No pertinent family history. Social History Socioeconomic History Marital status: Single Spouse name: Not on file Number of children: Not on file Years of education: Not on file Highest education level: Not on file Occupational History Not on file Tobacco Use Smoking status: Current Every Day Smoker Packs/day: 1.00 Types: Cigarettes Smokeless tobacco: Never Used Substance and Sexual Activity Alcohol use: No Drug use: No Sexual activity: Yes Partners: Female Other Topics Concern Not on file Social History Narrative Not on file Social Determinants of Health Financial Resource Strain: Difficulty of Paying Living Expenses: Not on file Food Insecurity: Worried About Running Out of Food in the Last Year: Not on file Ran Out of Food in the Last Year: Not on file Transportation Needs: Lack of Transportation (Medical): Not on file Lack of Transportation (Non-Medical): Not on file Physical Activity: Days of Exercise per Week: Not on file Minutes of Exercise per Session: Not on file Stress: Feeling of Stress : Not on file Social Connections: Frequency of Communication with Friends and Family: Not on file Frequency of Social Gatherings with Friends and Family: Not on file Attends [employer] Services: Not on file Active Member of Clubs or Organizations: Not on file Attends Club or Organization Meetings: Not on file Marital Status: Not on file Intimate Partner Violence: Fear of Current or Ex-Partner: Not on file Emotionally Abused: Not on file Physically Abused: Not on file Sexually Abused: Not on file Social History Tobacco Use Smoking Status Current Every Day Smoker Packs/day: 1.00 Types: Cigarettes Smokeless Tobacco Never Used Social History Substance and Sexual Activity Alcohol Use No Social History Substance and Sexual Activity Drug Use No Allergies: Flexeril [cyclobenzaprine] and Latex Home Medications: Current Outpatient Medications: albuterol 108 (90 Base) MCG/ACT Aero Soln inhaler, Inhale 2 puffs every 6 hours as needed for Shortness of Breath or Wheezing., Disp: 1 Inhaler, Rfl: 3 diphenhydrAMINE 12.5 MG/5ML elixir, Take 50 mg by mouth daily., Disp: , Rfl: Mometasone Furoate (Asmanex, 30 Metered Doses,) 110 MCG/INH Aerosol Powder, breath activated, Inhale 1 puff every evening at 6 PM., Disp: 1 Inhaler, Rfl: 3 Paliperidone Palmitate (INVEGA TRINZA IM), Inject intramuscularly., Disp: , Rfl: sildenafil citrate 100 MG tablet, Take 1 tablet by mouth daily as needed for Erectile Dysfunction.,Disp: 30 tablet, Rfl: 0 ROS: Review of Systems Constitutional: Negative for activity change, appetite change, chills and fatigue. Respiratory: Negative for cough, chest tightness, shortness of breath and wheezing. Cardiovascular: Negative for chest pain, palpitations and leg swelling. Gastrointestinal: Negative for abdominal pain, constipation, diarrhea, nausea and vomiting. Genitourinary: Negative for dysuria, flank pain, penile pain and testicular pain. Skin: Painful lump that has resolved that was behind the right nipple. Neurological: Negative for dizziness, tremors, facial asymmetry, weakness, light-headedness, numbness and headaches. Psychiatric/Behavioral: Negative for agitation, dysphoric mood, sleep disturbance and suicidal ideas. The patient is not hyperactive. Physical Examination: Vital Signs: BP 132/82 (BP Location: Left arm, BP Position: Sitting) Pulse 94 Temp 96.7 F (35.9 C) (Temporal) Ht 1.702 m (5' 7) Wt 75.7 kg (166 lb 12.8 oz) SpO2 98% BMI 26.12 kg/m Smoking Status Current Every Day Smoker Physical Exam Constitutional: General: He is awake. Appearance: Normal appearance. Cardiovascular: Rate and Rhythm: Normal rate. Pulmonary: Effort: Pulmonary effort is normal. No accessory muscle usage, prolonged expiration or respiratory distress. Chest: Breasts: Right: Normal. No swelling, bleeding, inverted nipple, mass, nipple discharge, skin change or tenderness. Left: Normal. No swelling, bleeding, inverted nipple, mass, nipple discharge, skin change or tenderness. Lymphadenopathy: Upper Body: Right upper body: No axillary or pectoral adenopathy. Left upper body: No axillary or pectoral adenopathy. Skin: General: Skin is warm and dry. Capillary Refill: Capillary refill takes less than 2 seconds. Neurological: Mental Status: He is alert and oriented to person, place, and time. Coordination: Coordination is intact. Gait: Gait is intact. Psychiatric: Attention and Perception: Attention normal. Mood and Affect: Mood normal. Mood is not anxious or depressed. Speech: Speech normal. Behavior: Behavior normal. Behavior is cooperative. Thought Content: Thought content normal. Thought content is not paranoid or delusional. Thought content does not include homicidal or suicidal ideation. Thought content does not include homicidal or suicidal plan. Cognition and Memory: Cognition normal. Judgment: Judgment normal. Laboratory and Additional Data Reviewed: Results for orders placed or performed during the hospital encounter of 07/16/19 URINALYSIS, MACRO Result Value Ref Range COLOR, URINE LIGHT YELLOW (A) YELLOW APPEARANCE, URINE CLEAR CLEAR SPECIFIC GRAVITY, URINE 1.015 1.010 - 1.025 PH URINE 5.5 5.0 - 7.0 PROTEIN, URINE NEGATIVE NEGATIVE mg/dl GLUCOSE, URINE NEGATIVE NEGATIVE mg/dl KETONES, URINE NEGATIVE NEGATIVE mg/dl BILIRUBIN, URINE NEGATIVE NEGATIVE BLOOD, URINE DIPSTICK NEGATIVE NEGATIVE NITRITES, URINE NEGATIVE NEGATIVE UROBILINOGEN, URINE 0.2 0.2 - 1.0 E.U./dL LEUKOCYTE ESTERASE, URINE NEGATIVE NEGATIVE No images are attached to the encounter. Assessment and Plan: Josafat Alvarenga is a 35 y.o. male that presents for follow up. Asthma- chronic. controlled with inhaler. Taking as prescribed. Not using the albuterol inhaler as much. -cont Asmanex inhaler daily. -cont albuterol as needed. ED- diff getting and maintaining and erection. Feels this is related to the Invega injections. Attempted viagra and current dose is not helping. No se from the meds. Discussed trying to increase to see if that helps. -will increase viagra to 100 mg as needed. Discussed risks of taking this medication and red flags. Had a painful lump behind the right nipple 1 month ago. He thinks it went away. Exam did not revealany concerning lump. meds refilled. Fu in 3 months. Call the office for any questions or concerns. I did have discussion that if any medications are not covered or is not able to get the medications to call the office and let us know so other alternative/arrangements can be made. Josafat was seen today for asthma and other. Diagnoses and all orders for this visit: Mild persistent asthma without complication - albuterol 108 (90 Base) MCG/ACT Aero Soln inhaler; Inhale 2 puffs every 6 hours as needed for Shortness of Breath or Wheezing. - Mometasone Furoate (Asmanex, 30 Metered Doses,) 110 MCG/INH Aerosol Powder, breath activated; Inhale 1 puff every evening at 6 PM. Erectile dysfunction, unspecified erectile dysfunction type - sildenafil citrate 100 MG tablet; Take 1 tablet by mouth daily as needed for Erectile Dysfunction. Tobacco abuse disorder RAVEN Pettit documented in this encounter Additional Source Comments (unrecognized sect ion and content) No Status Records FoundNo Status Records FoundNo Status Records FoundNo Status Records FoundNo Status Records FoundNo Status Records FoundNo Status Records FoundNo Status Records FoundNo Status Records FoundNo Status Records FoundNo Status Records Found INFORMATION SOURCE (unrecogn ized section and content) DATE CREATED AUTHOR 05/02/2018 [facility] DATE CREATED AUTHOR AUTHOR'S ORGANIZ ATION 10/18/2022 [facility] DATE CREATED AUTHOR AUTHOR[facility]S ORGANIZ ATION [facility] DATE CREATED AUTHOR AUTHOR'S ORGANIZ ATION 04/21/2023 [facility] DATE CREATED AUTHOR AUTHOR'S ORGANIZ ATION 03/13/2024 [facility] DATE CREATED AUTHOR AUTHOR'S ORGANIZ ATION 03/24/2024 [facility] ([place]) DATE CREATED AUTHOR AUTHOR'S ORGANIZ ATION 09/27/2024 [facility] DATE CREATED AUTHOR AUTHOR'S ORGANIZ ATION 02/27/2025 [facility] DATE CREATED AUTHOR AUTHOR'S ORGANIZ ATION 02/28/2025 [facility] DATE CREATED AUTHOR AUTHOR'S ORGANIZ ATION 03/21/2025 [facility] DATE CREATED AUTHOR AUTHOR'S ORGANIZ ATION 03/22/2025 [facility] Reason for Visit (unrecogniz ed section and content) Reason Comments Laceration Pt cut his middle fi nger on left hand with filet knife. Reason Comments New Patient Josafat is a 35 yo ma le here today to est. care with Shyam Harrison. Pt has no questions or concerns at this time. Pt would like medication refills on his albuterol and clodidine Reason Comments Medication Management 2 week fu Reason Comments Schizophrenia Pt states that his m edication costs over $900 and he has not taken any Reason Comments Other 1 month follow up Reason Comments Abdominal Pain C/O low abd & testic le pain for 1 week. Has had nausea & diarrhea. Reason Comments Asthma Other Pt c/o a painful lum p in his RT breast for the past month, stable Reason Comments Medication Refill inhalers, Erectile m edication Reason Comments Erectile Dysfunction Asthma Reason Comments Erectile Dysfunction Pt is here to reque st a referral to urology Reason Comments New Patient ED Specialty Diagnoses / Procedures Referred By Contac t Referred To Contact Diagnoses Vasculogenic erectile dysfunction, unspecified vasculogenic erectile dysfunction type Urinary frequency Microscopic hematuria Procedures US RENAL RETROPERITONEAL Hortencia Lira CNP [address] [place] [id number] Referral ID Status Reason Start Date Expiration Date Visits Re quested Visits Authorized [id number] Closed 02/22/2022 03/19/2023 1 1 Reason Comments Follow-up Erectile Dysfunction Kidney Stone Specialty Diagnoses / Procedures Referred By Contac t Referred To Contact Computerized Tomography Scan Diagnoses Kidney stone Procedures CT ABDOMEN/PELVIS WITHOUT CONTRAST CHG CT SCAN,ABDOMENT AND PELVIS,W/O CONTRAST Hortencia Lira CNP [address] [place] [address] Scan [address] [place] [phone] Referral ID Status Reason Start Date Expiration Date Visits Re quested Visits Authorized [id number] Closed 03/07/2022 04/01/2023 1 1 Reason Comments Follow-up Erectile Dysfunction Specialty Diagnoses / Procedures Referred By Deelianne t Referred To Contact Magnetic Resonance Imaging Diagnoses Elevated prolactin level Procedures MRI PITUITARY WITH AND WITHOUT CONTRAST WY MRI BRAIN COMBO Hortencia Lira CNP [address] [place] [address] [address] [facility] [address] [place] [phone] Referral ID Status Reason Start Date Expiration Date Visits Re quested Visits Authorized [id number] Closed 03/29/2022 04/23/2023 1 1 Reason Comments Anxiety Pt advised three day s ago he woke up with an increase in anxiety. Pt denies any current SI or HI. Over the past three days pt has felt like he doesn't want to be here anymore but pt does not have a plan and does not wish to hurt himself at this time. Reason Comments Rib Pain Reason Comments Schedule Test/Referral Pt requesting ref erral to Urology, Pt was dc from [facility] d/t multipple No Shows. Pt requesting his old urologist with [facility], tamica Ventura reports a lot of pain this morning, states he was having intercourse this morning and experienced a stabbing pain when he did not ejaculate. Pain level this morning05/21. Reason Comments Flank Pain Right sided flank pa in that started a few hours ago after he got done eating Reason Comments Appointment Reason Comments Difficulty Urinating New Patient Reason Comments Results Orders Reason Comments Sterilization (Elective) Reason Comments Established Patient Vasectomy consult Reason Comments Radiology US Specialty Diagnoses / Procedures Referred By Contac t Referred To Contact US IMAGING Diagnoses Blood in semen Scrotal varices Pain in both testicles Procedures US SCROTUM AND CONTENTS US SCROTUM & CONTENTS Fauzia Sorenson PA-C [address] [place] [address] [facility] [place] [id number] Referral ID Status Reason Start Date Expiration Date V isits Requested Visits Authorized [id number] Closed Auto-Generate d Referral 04/27/2023 05/26/2024 1 1 Reason Comments Groin Pain R testicular pain x3 days Reason Comments Testicular Pain Reason Comments Orders Reason Comments Radiology US Specialty Diagnoses / Procedures Referred By Satnam t Referred To Contact US IMAGING Diagnoses Pain in testicle, unspecified laterality Procedures US SCROTUM AND CONTENTS US SCROTUM & CONTENTS Sonia Kramer PA-C [address] [place] [id number] [facility] [place] [address] Referral ID Status Reason Start Date Expiration Date V isits Requested Visits Authorized [id number] Closed Auto-Generate d Referral 03/12/2024 04/11/2025 1 1 Reason Comments Sore Throat fever and headache x 2 days Reason Comments STD Chlamydia x1 day Reason Comments STD check STD check Reason Comments Follow Up Reason Comments Erectile Dysfunction Reason Comments Cough Chest congestion, co ld chills, chest tightness x 1 Reason Comments PT Eval Patient Education Specialty Diagnoses / Procedures Referred By Contac t Referred To Contact [facility] Diagnoses Pelvic pain in male Pain in testicle, unspecified laterality Procedures CONSULT TO PHYSICAL THERAPY PHYSICAL THERAPY EVALUATION HIGH COMPLEX 45 MINS Fauzia Sorenson PA-C [address] [place] [id number] [facility] [place] [address] [place] [address] Referral ID Status Reason Start Date Expiration Date Visits Requested Visits Authorized [id number] Waiting for Response Auto-Generated Referral OON Notification Letter Financial Clearance Required - OON Payor 11/12/2023 11/11/2024 1 1 Reason Comments Sexual Problem Specialty Diagnoses / Procedures Referred By Contac t Referred To Contact Urology / UROLOGY Diagnoses DISCUSS ED Procedures EST UROL Self Fauzia Sorenson PA-C [address] [place] [address] Referral ID Status Reason Start Date Expiration Date Visits Requested Visits Authorized [id number] Denied OON Notification Letter Clearance Not Met - Admin/Shop Repairer/D irector Advise to Postpone/Resched ule or Not Proceed 4 01/26/2025 1 0 Reason Comments Follow Up Reason Onset Date Comments No Show 02/25/2025 No show Gayla Ruelas RN - 07/14/2020 10:45 PM Jun Burns MD - 07/14/2020 10:29 PM EDT ED Notes (unrecognized secti on and content) Dr. Martinez in room for suture procedure DEPARTMENT OF EMERGENCY MEDICINE CHIEF COMPLAINT Laceration (Pt cut his middle finger on left hand with filet knife. ) ALESIA Alvarenga is a 35 y.o. male who presents with a cut to the dorsal aspect of his left middle finger. He was filleting a fish shortly prior to arrival when he accidentally cut his left middle finger. His last tetanus shot was less than 5 years ago. No fevers or chills. No vomiting or diarrhea. No other injuries or complaints. REVIEW OF SYSTEMS Review of Systems See history of present illness. PAST MEDICAL HISTORY Past Medical History: Diagnosis Date ADHD Asthma Schizophrenia SURGICAL HISTORY Past Surgical History: Procedure Laterality Date EXCISION VARICOCELE ABDOMINAL APPROACH 2014 CURRENT MEDICATIONS No current facility-administered medications for this encounter. Current Outpatient Medications Medication Sig Dispense Refill diphenhydrAMINE 12.5 MG/5ML elixir Take 50 mg by mouth daily. hydroCODone-acetaminophen 5-325 MG Tab tablet Take 1 tablet by mouth every 6 hours as needed for Moderate Pain for up to 10 doses. 10 tablet 0 ketorolac 10 MG Tab Take 1 tablet by mouth every 6 hours as needed. Do not take for more than 5 days. (Patient not taking: Reported on 08/22/2018 ) 20 tablet 0 meloxicam 15 MG Tab tablet Take 1 tablet by mouth daily. 30 tablet 0 naproxen 500 MG Tab tablet Take 1 tablet by mouth 2 times daily as needed. 30 tablet 0 ALLERGIES Allergies Allergen Reactions Flexeril [Cyclobenzaprine] Anaphylaxis Latex Anaphylaxis FAMILY HISTORY No family history on file. SOCIAL HISTORY Social History Socioeconomic History Marital status: Single Spouse name: Not on file Number of children: Not on file Years of education: Not on file Highest education level: Not on file Occupational History Not on file Social Needs Financial resource strain: Not on file Food insecurity Worry: Not on file Inability: Not on file Transportation needs Medical: Not on file Non-medical: Not on file Tobacco Use Smoking status: Current Every Day Smoker Packs/day: 1.00 Types: Cigarettes Smokeless tobacco: Never Used Substance and Sexual Activity Alcohol use: No Drug use: No Sexual activity: Yes Partners: Female Lifestyle Physical activity Days per week: Not on file Minutes per session: Not on file Stress: Not on file Relationships Social connections Talks on phone: Not on file Gets together: Not on file Attends spiritism service: Not on file Active member of club or organization: Not on file Attends meetings of clubs or organizations: Not on file Relationship status: Not on file Intimate partner violence Fear of current or ex partner: Not on file Emotionally abused: Not on file Physically abused: Not on file Forced sexual activity: Not on file Other Topics Concern Not on file Social History Narrative Not on file PHYSICAL EXAM Smoking Status Current Every Day Smoker Physical Exam The patient is well-developed, well-nourished, and in no acute distress. Head is atraumatic and normocephalic. Pupils are equal and reactive. Face is symmetric. Mucous membranes are moist. Neck is supple. Skin is warm and dry. He does have a 1.5cm laceration to the dorsal aspect of the proximal phalanx of the left middle finger. Extremities are warm and well perfused and without acute deformity other than the laceration as mentioned above. He is able to flex and extend appropriately at the PIP, DIP, and MCP joints. No evidence of deep structure involvement. Neurologically, the patient is awake, alert, and without acute deficit. Psychiatrically, the patient is calm and cooperative. ED COURSE & MEDICAL DECISION MAKING Procedure note: Laceration to the left middle finger was sterilely prepped and draped in usual fashion. It is cleansed with chlorhexidine. It was anesthetized with 1% lidocaine. It was flushed thoroughly with water. It was repaired with 3 simple interrupted sutures using 4 0 proline. Repaired length was 1.5 cm. The patient tolerated the procedure well without any complications. Patient is instructed on wound care. He is instructed to follow-up in 2 weeks for suture removal. He is instructed to watch for signs of infection. Patient will be discharged home. Jun Martinez MD 07/14/20 [id number] documented in this encounter Care Teams (unrecognized sec tion and content) Purchasing Agent Relationship Specialty Start Date End Date Shyam Harrison, COLLISION TECHNICIAN-DIRECTOR OF HOTEL OPERATIONS [address] [place] [address] PCP - General Family Medicine 09/09/20 Purchasing Agent Relationship Specialty Start Date End Date Shyam Harrison COLLISION TECHNICIAN-DIRECTOR OF HOTEL OPERATIONS [address] [place] [address] PCP - General Family Medicine 09/09/20 Purchasing Agent Relationship Specialty Start Date End Date Shyam Harrison COLLISION TECHNICIAN-DIRECTOR OF HOTEL OPERATIONS [address] [place] [address] PCP - General Family Medicine 09/09/20 Purchasing Agent Relationship Specialty Start Date End Date Shyam Harrison COLLISION TECHNICIAN-DIRECTOR OF HOTEL OPERATIONS [address] [place] [address] PCP - General Family Medicine 09/09/20 Purchasing Agent Relationship Specialty Start Date End Date Shyam Harrison COLLISION TECHNICIAN-DIRECTOR OF HOTEL OPERATIONS [address] [place] [address] PCP - General Family Medicine 09/09/20 Purchasing Agent Relationship Specialty Start Date End Date Shyam Harrison, COLLISION TECHNICIAN-DIRECTOR OF HOTEL OPERATIONS [address] [place] [address] PCP - General Family Medicine 09/09/20 Purchasing Agent Relationship Specialty Start Date End Date Shyam Harrison, COLLISION TECHNICIAN-DIRECTOR OF HOTEL OPERATIONS [address] [place] [address] PCP - General Family Medicine 09/09/20 Purchasing Agent Relationship Specialty Start Date End Date Shyam Harrison, COLLISION TECHNICIAN-DIRECTOR OF HOTEL OPERATIONS [address] [place] [address] PCP - General Family Medicine 09/09/20 Purchasing Agent Relationship Specialty Start Date End Date Shyma Harrison, COLLISION TECHNICIAN-DIRECTOR OF HOTEL OPERATIONS [address] [place] [address] PCP - General Family Medicine 09/09/20 Purchasing Agent Relationship Specialty Start Date End Date Shyam Harrison, COLLISION TECHNICIAN-DIRECTOR OF HOTEL OPERATIONS [address] [place] [address] PCP - General Family Medicine 09/09/20 Purchasing Agent Relationship Specialty Start Date End Date Shyam Harrison, COLLISION TECHNICIAN-DIRECTOR OF HOTEL OPERATIONS [address] [place] [address] PCP - General Family Medicine 09/09/20 Purchasing Agent Relationship Specialty Start Date End Date Shyam Harrison, COLLISION TECHNICIAN-DIRECTOR OF HOTEL OPERATIONS [address] [place] [address] PCP - General Family Medicine 09/09/20 Purchasing Agent Relationship Specialty Start Date End Date Emmanuel Gonzalez MD [address] [place] [address] PCP - General Family Medicine 07/12/17 Purchasing Agent Relationship Specialty Start Date End Date Emmanuel Gonzalez MD [address] [place] [address] PCP - General Family Medicine 07/12/17 Purchasing Agent Relationship Specialty Start Date End Date Emmanuel Gonzalez MD [address] [place] [address] PCP - General Family Medicine 07/12/17 Purchasing Agent Relationship Specialty Start Date End Date Emmanuel Gonzalez MD [address] [place] [address] PCP - General Family Medicine 07/12/17 Purchasing Agent Relationship Specialty Start Date End Date Emmanuel Gonzalez MD [address] [place] [address] PCP - General Family Medicine 07/12/17 Purchasing Agent Relationship Specialty Start Date End Date Emmanuel Gonzalez MD [address] [place] [address] PCP - General Family Medicine 07/12/17 Purchasing Agent Relationship Specialty Start Date End Date Emmanuel Gonzalez MD [address] [place] [address] PCP - General Family Medicine 07/12/17 Purchasing Agent Relationship Specialty Start Date End Date Emmanuel Gonzalez MD [address] [place] [address] PCP - General Family Medicine 07/12/17 Purchasing Agent Relationship Specialty Start Date End Date Emmanuel Gonzalez MD [address] [place] [address] PCP - General Family Medicine 07/12/17 Purchasing Agent Relationship Specialty Start Date End Date Emmanuel Gonzalez MD [address] [place] [address] PCP - General Family Medicine 07/12/17 Purchasing Agent Relationship Specialty Start Date End Date Emmanuel Gonzalez MD [address] [place] [address] PCP - General Family Medicine 07/12/17 Purchasing Agent Relationship Specialty Start Date End Date Emmanuel Gonzalez MD [address] [place] [address] PCP - General Family Medicine 07/12/17 Purchasing Agent Relationship Specialty Start Date End Date Emmanuel Gonzalez MD [address] [place] [address] PCP - General Family Medicine 07/12/17 Purchasing Agent Relationship Specialty Start Date End Date Emmanuel Gonzalez MD [address] [place] [address] PCP - General Family Medicine 07/12/17 Purchasing Agent Relationship Specialty Start Date End Date Emmanuel Gonzalez MD [address] [place] [address] PCP - General Family Medicine 07/12/17 Purchasing Agent Relationship Specialty Start Date End Date Emmanuel Gonzalez MD [address] [place] [address] PCP - General Family Medicine 07/12/17 Purchasing Agent Relationship Specialty Start Date End Date Emmanuel Gonzalez MD [address] [place] [address] PCP - General Family Medicine 07/12/17 Scheduled Active and Recently Administ ered Medications (unrecognized section and content) Medication Order 06/21/2022 06/22/2022 06/23/2022 hydrOXYzine (VISTARIL) injection 100 mg 100 mg, Intramuscular, ONCE, 1 dose, On Sun06/23/22 at 1700 1621 (Not Given - Pr ovider: Anand Ball RN - Reason: Not in room - Comment: Pt left before recieving medication) Scheduled Medication Order 04/08/2023 04/09/2023 04/10/2023 Ketorolac (TORADOL) injection 15 mg (COMPLETED) 15 mg, Intravenous, ONCE, 1 dose, On Sun04/10/23 at 2044 2015 (Given - Provid er: Richa Mak RN) Morphine sulfate (PF) injection 4 mg (COMPLETED) 4 mg, Intravenous, ONCE, 1 dose, On Sun04/10/23 at 2044 2015 (Given - Provid er: Richa Mak RN) Ondansetron 4mg/2ml (ZOFRAN) injection 4 mg (COMPLETED) 4 mg, Intravenous, ONCE, 1 dose, On Sun04/10/23 at 2044 2015 (Given - Provid er: Richa Mak RN) Sodium chloride 0.9% IV solution 1,000 mL (COMPLETED) 1,000 mL, Intravenous, ONCE, 1 dose, On Sun04/10/23 at 2044 2014 ($$New Bag$$ - Provider: Richa Mak RN)[id number] (Stopped - Provider: Amanda Dumont RN) Source Comments (unrecognize d section and content) In the event this informatio n is protected by the Federal Confidentiality of Alcohol and Drug Abuse Patient Records regulations: The Federal rules restrict any use of the information to criminally investigate or prosecute any alcohol or drug abuse patient.[facility] the event this information is protected by the Federal Confidentiality of Alcohol and Drug Abuse Patient Records regulations: The Federal rules restrict any use of the information to criminally investigate or prosecute any alcohol or drug abuse patient.[facility] the event this information is protected by the Federal Confidentiality of Alcohol and Drug Abuse Patient Records regulations: The Federal rules restrict any use of the information to criminally investigate or prosecute any alcohol or drug abuse patient.[facility] the event this information is protected by the Federal Confidentiality of Alcohol and Drug Abuse Patient Records regulations: The Federal rules restrict any use of the information to criminally investigate or prosecute any alcohol or drug abuse patient.[facility] the event this information is protected by the Federal Confidentiality of Alcohol and Drug Abuse Patient Records regulations: The Federal rules restrict any use of the information to criminally investigate or prosecute any alcohol or drug abuse patient.[facility]In the event this information is protected by the Federal Confidentiality of Alcohol and Drug Abuse Patient Records regulations: The Federal rules restrict any use of the information to criminally investigate or prosecute any alcohol or drug abuse patient.[facility] the event this information is protected by the Federal Confidentiality of Alcohol and Drug Abuse Patient Records regulations: The Federal rules restrict any use of the information to criminally investigate or prosecute any alcohol or drug abuse patient.[facility] the event this information is protected by the Federal Confidentiality of Alcohol and Drug Abuse Patient Records regulations: The Federal rules restrict any use of the information to criminally investigate or prosecute any alcohol or drug abuse patient.[facility] the event this information is protected by the Federal Confidentiality of Alcohol and Drug Abuse Patient Records regulations: The Federal rules restrict any use of the information to criminally investigate or prosecute any alcohol or drug abuse patient.[facility] the event this information is protected by the Federal Confidentiality of Alcohol and Drug Abuse Patient Records regulations: The Federal rules restrict any use of the information to criminally investigate or prosecute any alcohol or drug abuse patient.[facility] the event this information is protected by the Federal Confidentiality of Alcohol and Drug Abuse Patient Records regulations: The Federal rules restrict any use of the information to criminally investigate or prosecute any alcohol or drug abuse patient.[facility] the event this information is protected by the Federal Confidentiality of Alcohol and Drug Abuse Patient Records regulations: The Federal rules restrict any use of the information to criminally investigate or prosecute any alcohol or drug abuse patient.[facility] the event this information is protected by the Federal Confidentiality of Alcohol and Drug Abuse Patient Records regulations: The Federal rules restrict any use of the information to criminally investigate or prosecute any alcohol or drug abuse patient.[facility] the event this information is protected by the Federal Confidentiality of Alcohol and Drug Abuse Patient Records regulations: The Federal rules restrict any use of the information to criminally investigate or prosecute any alcohol or drug abuse patient.[facility] HospitalIn the event this information is protected by the Federal Confidentiality of Alcohol and Drug Abuse Patient Records regulations: The Federal rules restrict any use of the information to criminally investigate or prosecute any alcohol or drug abuse patient.[facility] HospitalIn the event this information is protected by the Federal Confidentiality of Alcohol and Drug Abuse Patient Records regulations: The Federal rules restrict any use of the information to criminally investigate or prosecute any alcohol or drug abuse patient.[facility] HospitalIn the event this information is protected by the Federal Confidentiality of Alcohol and Drug Abuse Patient Records regulations: The Federal rules restrict any use of the information to criminally investigate or prosecute any alcohol or drug abuse patient.[facility] HospitalIn the event this information is protected by the Federal Confidentiality of Alcohol and Drug Abuse Patient Records regulations: The Federal rules restrict any use of the information to criminally investigate or prosecute any alcohol or drug abuse patient.[facility] HospitalIn the event this information is protected by the Federal Confidentiality of Alcohol and Drug Abuse Patient Records regulations: The Federal rules restrict any use of the information to criminally investigate or prosecute any alcohol or drug abuse patient.[facility] HospitalIn the event this information is protected by the Federal Confidentiality of Alcohol and Drug Abuse Patient Records regulations: The Federal rules restrict any use of the information to criminally investigate or prosecute any alcohol or drug abuse patient.[facility] HospitalIn the event this information is protected by the Federal Confidentiality of Alcohol and Drug Abuse Patient Records regulations: The Federal rules restrict any use of the information to criminally investigate or prosecute any alcohol or drug abuse patient.[facility] HospitalIn the event this information is protected by the Federal Confidentiality of Alcohol and Drug Abuse Patient Records regulations: The Federal rules restrict any use of the information to criminally investigate or prosecute any alcohol or drug abuse patient.[facility] HospitalIn the event this information is protected by the Federal Confidentiality of Alcohol and Drug Abuse Patient Records regulations: The Federal rules restrict any use of the information to criminally investigate or prosecute any alcohol or drug abuse patient.[facility] HospitalIn the event this information is protected by the Federal Confidentiality of Alcohol and Drug Abuse Patient Records regulations: The Federal rules restrict any use of the information to criminally investigate or prosecute any alcohol or drug abuse patient.[facility] FOR RECORDS PERTAINING TO PATIENTS WHO ARE OR HAVE BEEN ENROLLED IN A CHEMICAL DEPENDENCY/SUBSTANCEABUSE PROGRAM, SOME INFORMATION MAY BE OMITTED. This clinical summary was aggregated from multiple sources. Caution should be exercised in using it in the provision of clinical care. This summary normalizes information from multiple sources, and as a consequence, information in this document may materially change the coding, format and clinical context of patient data. In addition, data may be omitted in some cases. CLINICAL DECISIONS SHOULD BE BASED ON THE PRIMARY CLINICAL RECORDS. [facility] [employer] [facility]. provides no warranty or guarantee of the accuracy or completeness of information in this document.
[2025-05-01 20:39] LABS: Anion Gap 11 (5-15); BUN 4 mg/dL (4-19); BUN/Creat Ratio 4.1 RATIO (10-20); Calcium,Total 8.9 mg/dL (7.6-11.0); Carbon Dioxide 23.5 mmol/L (21.0-32.0); Chloride 103 mmol/L (98-108); Creatinine, Serum 0.89 mg/dL (0.70-1.20); EST Glomerular Filtration Rate 110 (>60); Estimated Creatinine Clearance 110.96 ml/min (50-250); Glucose 121 mg/dL (70-99); Potassium 3.5 mmol/L (3.3-5.1); Sodium Level 138 mmol/L (133-145)
[2025-05-01 21:25] VITALS: BP 130/74; PULSE 92; RESP 16; O2SAT 97
--- NOTE | 2025-05-01 22:00 | ED.RN ---
PER REGISTRATION, PT WALKING TOWARD EXIT STATING I'M NOT WAITING ON MY PAPER WORK, I'M LEAVING RIGHT NOW THIS RN FOUND IV CATH DISCARDED IN TRASH CAN.
== END 2025-05-01 22:04 | disposition home or self-care (01) ==
PROVIDERS: Emergency Provider Emergency Medicine; Referring Provider Emergency Medicine; Visit Provider Emergency Medicine
DX: K59.00 Constipation, unspecified (principal); F17.210 Nicotine dependence, cigarettes, uncomplicated; R05.9 Cough, unspecified; R10.9 Unspecified abdominal pain
CPT/HCPCS: 74022; 80048; 85025; 96360; 99285; A4216

== ENCOUNTER 2025-07-08 20:40 | Emergency (ER) | payer MEDICAID, SELFPAY ==
[2025-07-08 20:40] VITALS: BP 132/91; PULSE 87; RESP 18; TEMP 36.8; O2SAT 100; BMI 27.0
--- NOTE | 2025-07-08 20:48 | RAD_ITS ---
PROCEDURE: LEFT WRIST MIN 3 VIEWS 07/08/2025 REASON FOR EXAM: TRAUMA TECHNIQUE: LEFT WRIST MIN 3 VIEWS COMPARISON: None. FINDINGS: No acute fracture or dislocation. Alignment is anatomic. Preserved joint spaces. No aggressive osseous lesion. No marked soft tissue swelling or radiopaque foreign body. RAD/Wrist min 3 Views IMPRESSION: No acute fracture or dislocation. Reading Location: [id number]
--- NOTE | 2025-07-08 22:20 | EX.ED.UPPERE ---
HPI History of Present Illness Chief Complaint: Upper Extremity Injury [facility] Medical History (Updated 05/09/25 @ 00:00 by Background [place]) Paranoid schizophrenia Foreign body in throat History of intravenous drug abuse Erectile dysfunction Hepatitis C Marijuana smoker Home Medications ?Medication ?Instructions ?Recorded ?Last Taken ?Type albuterol sulfate 90 mcg/actuation 2 puff inhalation Q4H PRN PRN 03/12/25 Unknown History aerosol inhaler shortness of breath or wheezing paliperidone palmitate 234 mg/1.5 234 mg IM Q30D 03/12/25 Unknown History mL intramuscular syringe (Invega Sustenna) polyethylene glycol 3350 17 17 g PO DAILY #119 grams 05/01/25 Unknown Rx gram/dose oral powder (Miralax) Allergy/AdvReac Type Severity Reaction Status Date / Time latex Allergy Mild Rash Verified 07/08/25 20:42 cyclobenzaprine HCl (From Allergy Angioedema Verified 07/08/25 20:42 Flexeril) Social History Smoking Status: Current every day smoker tobacco type: cigarettes EXAM Physical Exam Const Vital Signs: 07/08/25 20:40 Temperature 98.2 F Temperature Source Temporal Pulse Rate 87 Respiratory Rate 18 Blood Pressure 132/91 H Blood Pressure Mean 104 Pulse Ox 100 Oxygen Delivery Method Room Air [facility] Narrative Medical decision making narrative: HISTORY OF PRESENT ILLNESS: Chief complaint: Left wrist pain 40-year-old male history of schizophrenia, polysubstance abuse, asthma presents with left wrist pain. States he was trying to pull apart 2 dogs were fighting. He noted pain in his left wrist REVIEW OF SYSTEMS: Pertinent positives: Left wrist pain Pertinent negatives: As per HPI PHYSICAL EXAM: Nursing triage notes reviewed, Vital signs reviewed Constitutional: please see mdm Extremities: No edema, no snuffbox tenderness no obvious deformities. Intact range of motion. Left upper extremity warm well-perfused intact radial pulses bilaterally. Neuro: Intact 5/5 strength with ok sign (median), intact finger abduction (ulnar) intact wrist extension (radial n). Intact sensation in the radial, ulnar, and median nerve distributions. Skin: No rash or lesions noted, no sign of open fractures, lacerations MEDICAL DECISION MAKING: Chief Complaint: please see HPI External records reviewed: Reviewed prior imaging studies Factors affecting care: As per HPI Social determinants of health: Polysubstance abuse, to health disorder MDM Narrative: The patient was initially hemodynamically stable, afebrile and nontoxic-appearing. Exam without obvious neurovascular compromise of the involved extremity. X-ray was placed per triage orders secondary to poor departmental dynamics including hide volume and high acuity. Wrist x-ray was read, interpreted, and reviewed personally by myself. Wrist x-ray showed no evidence of obvious bony abnormality, no acute fractures or dislocations. Given negative x-ray the patient is likely suffering from a wrist sprain. Will give wrist splint, RICE instructions, PCP follow-up. The patient and/or family, caregivers express understanding. The patient and/or family, caregivers agrees with the plan. Shared decision making: I will have a discussion with the patient and or visitors regarding risk/benefits of further testing or admission. They will be made aware of of the risk/benefits inherent in this decision they will be given the opportunity to voice understanding. Total critical care time today provided was at least 0 minutes. This excludes separately billable procedures. Critical care time (if documented) is secondary to the patient having high probability of clinically significant/life threatening deterioration in the patient's condition which required my urgent intervention. Impression: 1. Acute left wrist pain 2. Wrist sprain Dispo: Discharge home This note was generated with [employer] dictation software. It may contain incorrect words, spelling, and punctuation that were not noted in review of the chart prior to signing. Radiography Diagnostic Testing: Clinical Impression(s) from Imaging Studies Wrist X-Ray 07/08/25 20:48 IMPRESSION: No acute fracture or dislocation. Reading Location: [facility] Discharge Plan Triage Chief Complaint: Upper Extremity Injury ED Provider: Gary Nair Dx/Rx/DC Orders Instructions: ED Wrist Sprain, ED RICE Prescriptions: No Action albuterol sulfate 90 mcg/actuation HFA aerosol inhaler 2 puff inhalation Q4H PRN PRN (Reason: shortness of breath or wheezing) Invega Sustenna 234 mg/1.5 mL syringe 234 mg IM Q30D polyethylene glycol 3350 [Miralax] 17 gram/dose powder 17 g PO DAILY Qty: 119 0RF Primary Care Provider: Care Physician,No Primary Referrals: Andrea Kaur MD [Med Staff - Fleet Driver] - Activity Restrictions/Additional Instructions: Thank you for trusting us with your care today! The x-ray of your wrist did not show signs of a bony injury. You likely suffered a wrist sprain. This is treated with immobilization rest and time. Please take Tylenol (2 pills, 650 mg), ibuprofen (2 pills, 400 mg) every 6 hours as needed for pain and fever control. Please return to the emergency department if your symptoms change or worsen. Please follow with your primary care physician for further outpatient evaluation and management. Print Language: Palestinian Disposition Disposition: Home, Self Care Discharge Date/Time: 07/08/25 22:42
[2025-07-08 22:34] VITALS: BP 129/84; PULSE 69; RESP 18; TEMP 36.8; O2SAT 100
== END 2025-07-08 22:42 | disposition home or self-care (01) ==
LOC: ED 22:31
PROVIDERS: Emergency Provider Emergency Medicine; Visit Provider Emergency Medicine
DX: S63.92XA Sprain of unspecified part of left wrist and hand, initial encounter (principal); F20.9 Schizophrenia, unspecified; F17.210 Nicotine dependence, cigarettes, uncomplicated; Z79.51 Long term (current) use of inhaled steroids; X58.XXXA Exposure to other specified factors, initial encounter
CPT/HCPCS: 73110; 99283

== ENCOUNTER 2025-07-15 21:12 | Emergency (ER) | payer MEDICAID, SELFPAY ==
[2025-07-15 21:13] VITALS: BP 146/94; PULSE 87; RESP 22; TEMP 36.3; O2SAT 98; BMI 27.1
--- NOTE | 2025-07-15 21:17 | US_ITS ---
PROCEDURE: US TESTICULAR WITH ARTERIAL FLOW 07/15/2025 REASON FOR EXAM: Right testicular pain sudden onset during intercourse TECHNIQUE: Procedure Code: USTES Modality: US Procedure: TESTICULAR WITH ARTERIAL FLOW COMPARISON: None available. FINDINGS: Bilateral testes and epididymi have a normal symmetric sonographic appearance. Homogeneous parenchymal echotexture. Blood flow is demonstrated bilaterally on color Doppler, which appears symmetric. No evidence for torsion or epididymo-orchitis. There is a nonspecific single focus of microcalcification within the left testicle. Right testicle measures 5.1 x 3.1 x 2.2 cm. Left testicle measures 5.3 x 2.9 x 2.3 cm. There are trace bilateral nonspecific hydroceles with granular debris. No evidence of varicocele on either side. US/Testicular with Arterial Flow IMPRESSION: Trace nonspecific bilateral hydroceles with granular debris. Otherwise, normal symmetric sonographic appearance of the testes and epididymi. No evidence of torsion or epididymo-orchitis. Reading Location: [id number]
--- NOTE | 2025-07-15 22:07 | EX.ED.GUMALE ---
HPI History of Present Illness Chief Complaint: Male Pain/Injury Informant: patient Pain Onset: Today and Hours Context: Sudden Onset Timing: Continuous Current Severity: Moderate Maximum Severity: Moderate Narrative Narrative: 40-year-old male history of paranoid schizophrenia, asthma and drug abuse. Prior varicocele that was surgically repaired. States he was having intercourse with his significant other tonight. About an hour ago he had sudden onset of right testicle pain. Denies any dysuria. No hematuria. No trauma. No history of torsion. Prior similar symptoms: Yes Recent Illness/Hospitalization: No PFSH PFSH Medical History Paranoid schizophrenia Foreign body in throat History of intravenous drug abuse Erectile dysfunction Hepatitis C Marijuana smoker Home Medications ?Medication ?Instructions ?Recorded ?Last Taken ?Type paliperidone palmitate 234 mg/1.5 234 mg IM Q30D 03/12/25 Unknown History mL intramuscular syringe (Invega Sustenna) clonidine HCl 0.1 mg tablet 0.1 - 0.2 mg PO QHS 07/15/25 Unknown History doxepin 50 mg capsule 50 mg PO QHS 07/15/25 Unknown History hydroxyzine pamoate 25 mg capsule 25 mg PO TID PRN PRN anxiety 07/15/25 Unknown History quetiapine 50 mg tablet 50 mg PO QHS 07/15/25 Unknown History Allergy/AdvReac Type Severity Reaction Status Date / Time latex Allergy Mild Rash Verified 07/15/25 21:13 cyclobenzaprine HCl (From Allergy Angioedema Verified 07/15/25 21:13 Flexeril) Social History Smoking Status: Current every day smoker tobacco type: cigarettes ROS ROS ED ROS Narrative Denies recent illness. Constitutional Constitutional ED: Denies fever(s) Eyes Eyes: Denies blurry vision ENT ENT ED: Denies ear pain Cardiovascular Cardiovascular: Denies chest pain Respiratory/Chest Respiratory/Chest: Denies cough or dyspnea Gastrointestinal Gastrointestinal: Denies abdominal pain Genitourinary Genitourinary ED: Denies dysuria, hematuria or urinary frequency Musculoskeletal Musculoskeletal: Denies arthralgias or back pain Integumentary Denies abscess Neurologic Neurologic: Denies headache(s) Psychiatric Psychiatric: Denies anxiety Endocrine Endocrinology: Denies polydipsia or polyphagia Hematologic/Lymphatic Hematologic/Lymphatic: Denies easy bleeding, easy bruising or lymphadenopathy Allergic/Immunologic Allergic/Immunologic ED: Denies mouth swelling, tongue swelling or urticaria EXAM Physical Exam Narrative Exam Narrative: 40-year-old male lying in bed vital signs stable afebrile. Significant other seen in the room. H EENT exam pupils round react light. Moist mucous membranes. Neck nontender. Lungs clear to auscultation. Heart regular rhythm no murmur. Rate about 90. Abdomen soft, nontender, nondistended normal bowel sounds without peritoneal signs. External exam slightly elevated right testicle positive cremasterics reflex bilaterally. No mass. No swelling. No edema. No discoloration or redness. No obvious hernia. Circumcised male. No inguinal lymphadenopathy. Moving all 4 extremities. Nontender. No edema. Normal strength and range of motion. He is awake and alert. Answering questions following commands. Const Vital Signs: 07/15/25 21:13 Temperature 97.4 F L Temperature Source Temporal Pulse Rate 87 Respiratory Rate 22 H Blood Pressure 146/94 H Blood Pressure Mean 111 Pulse Ox 98 Oxygen Delivery Method Room Air Positive well nourished and well developed; Negative for obese, cachectic, contractures or unkempt General Appearance ED: well developed and NAD; Negative for unkempt, cachectic or contractures Nutritional Appearance: Negative for cachectic or obese HEENT Reports moist mucous membranes normocephalic and atraumatic Eyes PERRL and EOMs intact bilaterally General Eye ED: Negative for pale conjunctiva or scleral icterus Neck no lymphadenopathy, supple and no JVD Resp normal respiratory effort and clear to auscultation bilaterally Cardio regular rate, regular rhythm, S1 normal heart sound, S2 normal heart sound and no murmurs Rate: Negative for bradycardia or tachycardic Rhythm: Negative for abnormal rhythm GI non-tender, non-distended and no masses Inspection: Negative for abdominal distention Auscultation: normoactive bowel sounds Palpation: soft, tender and guarding Back/Spine no CVA tenderness General Back: Negative for CVA tenderness Cervical Spine: Negative for cervical spine tenderness Thoracic Spine / Upper Back: Negative for thoracic spinal tenderness Lumbar Spine / Lower Back: Negative for lumbar spinal tenderness Extremity normal to inspection General Extremety ED: Negative for edema or pulses abnormal General Extremity: Negative for edema or pulses abnormal Neuro oriented x3, CN's II-XII intact bilaterally, moves all extremities, no focal motor deficits and no sensory deficits noted Motor Exam: strength 5/5 throughout Psych mental status grossly normal Appearance: Negative for unkempt Thought Process: normal thought process Thought Content: normal thought content Skin Lesions: no lesions Rashes: no rashes MDM MDM MDM Narrative Medical decision making narrative: 40-year-old male right testicle pain. Ultrasound being obtained to evaluate for possible torsion. UA. Clinically there is no swelling or discoloration. I do not think there is infection especially sudden onset. He will be given [place] for pain. Repeat exam around 11:05 PM unchanged. I went over the patient's test results his UA was negative his ultrasound showed bilateral hydroceles but no torsion. He will be treated with Motrin and Tylenol for pain and follow-up with urology as needed. History & Record Review Discussion w/independent historian: Patient Additional record(s) reviewed:: Prior inpatient record, Prior outpatient record, Prior ED visit and Prior labs Lab Data Attestation: I reviewed the patient's lab results. Lab results narrative: UA is unremarkable. No white or red cells. No nitrites nor bacteria. Labs: Laboratory Results - last 24 hr 07/15/25 22:15 Urine Color Yellow Urine Clarity Clear Urine pH 7.0 Ur Specific [place] 1.010 Urine Protein 15 H Urine Glucose (UA) Normal Urine Ketones Negative Urine Occult Blood Negative Urine Nitrite Negative Urine Bilirubin Negative Urine Urobilinogen Normal Ur Leukocyte Esterase Negative Urine RBC 0 SEEN Urine WBC 0 SEEN Ur Squamous Epith Cells 0 SEEN Urine Bacteria 0 SEEN Urine Mucus 0 SEEN Radiography Diagnostic Testing: Clinical Impression(s) from Imaging Studies Testicular Ultrasound 07/15/25 21:17 IMPRESSION: Trace nonspecific bilateral hydroceles with granular debris. Otherwise, normal symmetric sonographic appearance of the testes and epididymi. No evidence of torsion or epididymo-orchitis. [id number] Triage Chief Complaint: Male Pain/Injury ED Provider: Freddy Batres Dx/Rx/DC Orders Prescriptions: No Action doxepin 50 mg capsule 50 mg PO QHS clonidine HCl 0.1 mg tablet 0.1 - 0.2 mg PO QHS hydroxyzine pamoate 25 mg capsule 25 mg PO TID PRN PRN (Reason: anxiety) quetiapine 50 mg tablet 50 mg PO QHS Invega Sustenna 234 mg/1.5 mL syringe 234 mg IM Q30D Primary Care Provider: Care Physician,No Primary Referrals: Care Physician,No Primary [Primary Care Provider] - Print Language: Syrian
[2025-07-15] MEDS: HYDROcodone Bitartrate/Apap 5/325 Tablet PO (22:11)
[2025-07-15 22:22] LABS: Mucous, Urine 0 SEEN /hpf (<or=2+); Red Blood Cells-Urine 0 SEEN /hpf (0-5); Squamous Epithelial Cells - UA 0 SEEN /hpf (0-5)
[2025-07-15 22:35] LABS: Color, Urine Yellow (Yellow); Glucose, Dipstick Normal (Normal); Ketone-Dipstick Negative (Negative); Leukocyte Esterase-Dipstick Negative /ul (Negative); Nitrite-Dipstick Negative (Negative); Occult Blood-Urine Negative /ul (Negative); Protein-Dipstick 15 mg/dl (Negative); Specific Gravity, Urine 1.010 (1.002-1.030); Urine Bilirubin Dipstick Negative (Negative)
== END 2025-07-15 23:17 | disposition home or self-care (01) ==
PROVIDERS: Emergency Provider Emergency Medicine; Visit Provider Emergency Medicine
DX: N43.3 Hydrocele, unspecified (principal); F17.210 Nicotine dependence, cigarettes, uncomplicated
CPT/HCPCS: 76870; 81001; 93976; 99282

== ENCOUNTER 2025-07-23 09:53 | Day surgery (SDC) | payer MEDICAID, SELFPAY ==
[2025-07-23] VITALS (9 sets, daily range): BP systolic 113–120; BP diastolic 72–93; PULSE 64–79; RESP 16; TEMP 35.9–36.6; O2SAT 97–100; BMI 27.1
--- NOTE | 2025-07-23 10:12 | PCM.HP.STD ---
HPI - General General Date of Admission: 07/23/25 Date of Service: 07/23/25 Chief Complaint: dysphagia HPI Narrative ELIAS RICE, is a 40 M who presents with the Chief Complaint: dysphagia Details: ADMISSION February 2025 - GI CONSULT NOTE 02/22/2025 Attempted to see pt this morning but he had already left AMA around 7 am. Received page at 1 am that pt ate melon at 8 pm and since had trouble tolerating liquids though was able to tolerate secretions. Planned to evaluate pt and consider EGD this AM but according to ED nurse, he tolerated PO intake earlier today and thus left AMA prior to me seeing him - swirling esophagus diagnosed by [facility] - reports episodes of dysphagia date back to childhood - dysphagia to meat and bread - getting worse - dysphagia for a long time - weight is stable - scared to eat - reports even a pea can get stuck - Glucagon 1 month ago in [place] - EGD 2.5 months ago - 03/12/2025 seen in ER and Glucagon - reports he has had 2 EGD this year - personal h/o Asthma - chronic constipation, takes Miralax daily, typically has a BM every 3 days - denies any heart or lung disease - denies any kidney disease PFSH Medical History Wears glasses ADHD Depression Diabetes Restless legs Injury of back Migraine headache Blackout Difficulty chewing Chronic constipation Smoker Asthma Shortness of breath on exertion History of edema Hypertension History of varicocele GERD (gastroesophageal reflux disease) History of esophageal dilatation Paranoid schizophrenia History of intravenous drug abuse Hepatitis C Marijuana smoker Home Medications ?Medication ?Instructions ?Recorded ?Last Taken ?Type paliperidone palmitate 234 mg/1.5 234 mg IM Q30D 03/12/25 Unknown History mL intramuscular syringe (Invega Sustenna) clonidine HCl 0.1 mg tablet 0.1 - 0.2 mg PO QHS 07/15/25 Unknown History doxepin 50 mg capsule 50 mg PO QHS 07/15/25 Unknown History hydroxyzine pamoate 25 mg capsule 25 mg PO TID PRN PRN anxiety 07/15/25 Unknown History quetiapine 50 mg tablet 50 mg PO QHS 07/15/25 Unknown History albuterol sulfate 90 mcg/actuation 1 inh inhalation Q6H PRN shortness 07/22/25 Unknown History breath activated powder inhaler of breath or wheezing atomoxetine 100 mg capsule 100 mg PO DAILY 07/22/25 Unknown History benztropine 1 mg tablet 1 mg PO DAILY 07/22/25 Unknown History cholecalciferol (vitamin D3) 1,250 1,250 mcg PO QWEEK 07/22/25 Unknown History mcg (50,000 unit) capsule polyethylene glycol 3350 17 17 g PO DAILY 07/22/25 Unknown History gram/dose oral powder Allergy/AdvReac Type Severity Reaction Status Date / Time latex Allergy Mild Rash Verified 07/22/25 10:54 cyclobenzaprine HCl (From Allergy Angioedema Verified 07/22/25 10:54 Flexeril) Family History Other Anxiety Arthritis Bowel disease Breast cancer Cancer Colon cancer Diabetes Hypertension Thyroid disorder Surgical History History of incision and drainage History of esophagogastroduodenoscopy (EGD) History of placement of ear tubes Hx of tonsillectomy Hx of vasectomy Social History Smoking Status: Current every day smoker tobacco type: cigarettes and e-cigarettes alcohol intake: former substance use type: does not use what type of physical activity do you participate in: none ROS Constitutional Constitutional: Denies fatigue, fever(s), poor appetite, weight gain or weight loss Gastrointestinal Gastrointestinal: Denies belching, bloating, change in bowel habits, change in stool character, chewing difficulty, coffee ground emesis, constipation, cramping, diarrhea, dyspepsia, dysphagia, early satiety, excessive flatus, fecal incontinence, heartburn, hematemesis, hematochezia, hemorrhoids, loose stools, melena, nausea, odynophagia, rectal bleeding, tenesmus, vomiting or weight changes Physical Exam Const alert, oriented x3, no apparent distress and healthy appearing General Appearance: cooperative GI normal to inspection, nondistended, normoactive bowel sounds, soft to palpation, non-tender and non-distended Percussion: normal to percussion Rectal Exam: deferred Assessment & Plan Assessment/Plan (1) Eosinophilic esophagitis: (2) Foreign body in esophagus: QUALIFIERS: Encounter type: subsequent encounter Qualified Code(s): T18.108D - Unspecified foreign body in esophagus causing other injury, subsequent encounter (3) Dysphagia: PLAN: Assessment and Plan Assessment and Plan (1) Dysphagia: Plan 40-year-old male presents for initial consultation with complaints of dysphagia. He was seen in the emergency department at [facility] on 03/12/2025 for FBO which resolved with glucagon. He reports an ER visit in [place] 1 month ago for FBO that also resolved with glucagon. He is a poor historian and reports his last EGD with dilation was 2-1/2 months ago, although I am not able to find a record of this. He also reports an EGD with dilation this past February when admitted at [facility]; however; in reviewing the GI consult note from 02/22/2025 patient left AMA before being seen by GI. Only EGD on record was performed by Dr. Waldrop in 2019 for FBO. He denies any HB. He reports dysphagia primarily with bread and chicken, altnough, reports dysphagia with a single pea as well. I have scheduled him for an EGD this week.
[2025-07-23] MEDS: Lactated Ringers 1,000 ML 15 ML IV (10:26)
--- NOTE | 2025-07-23 11:26 | PCM.PRE.AN2 ---
ASA Classification* ASA Classification ASA Classification: 2 Assessment & Plan Anesthesia* Anesthesia Assessment Anesthesia Assessment: Discussed sedation and/or anesthesia options, risks, benefits, and alternatives with patient/parents/legal guardian/POA. Questions invited. The patient/parents/legal guardian/POA seems to understand and agrees to proceed with anesthesia plan. Reviewed the physical assessment, medical history, allergy history and patient home medications list prior to surgery/procedure/anesthetic and documented any changes. Performed airway and anesthesia risk assessments. Anesthesia Type Anesthesia Type: MAC History Source History Obtained from:: Patient and Chart Anesthesia Focused Assessment* Temperature: 96.7 F Pulse Rate: 64 Blood Pressure: 120/72 Respiratory Rate: 16 Pulse Ox: 99 Oxygen Delivery Method: Room Air Airway Assessment Mouth opens: >3 cm Mallampati Score: II Teeth Condition: Intact Neck Range of motion (ROM): Full ROM Labs Anesthesia Preop lab: CBC WBC 9.1 K/mm3 (4.4-11.0) 05/01/25 20:02 05/01/25 RBC 4.93 M/mm3 (4.6-6.2) 05/01/25 20:02 05/01/25 Hgb 15.6 g/dL (13.0-16.5) 05/01/25 20:02 05/01/25 Hct 44.3 % (40-54) 05/01/25 20:02 05/01/25 Plt Count 253 K/mm3 (150-450) 05/01/25 20:02 05/01/25 CHEMISTRY Potassium 3.5 mmol/L (3.3-5.1) 05/01/25 20:02 05/01/25 Sodium 138 mmol/L (133-145) 05/01/25 20:02 05/01/25 Phosphorus 3.8 mg/dL (2.5-4.9) 10/19/17 06:30 10/19/17 BUN 4 mg/dL (4-19) 05/01/25 20:02 05/01/25 Creatinine 0.89 mg/dL (0.70-1.20) 05/01/25 20:02 05/01/25 Glucose 121 mg/dL (70-99) H 05/01/25 20:02 05/01/25 TSH 0.62 uIU/mL (0.358-3.74) 02/18/18 18:45 02/18/18 COAG PT 13.9 SECONDS (11.7-14.9) 10/08/17 20:00 10/08/17 Pre-Assessment Diagnosis/Proposed Procedure Planned Operative Procedure(s): EGD Anesthesia History Anesthesia History - logistics vice president: Anesthesia History - logistics vice president Hx Hospitalization No 07/22/25 10:58 Any Problems With Anesthesia No 07/22/25 10:58 Cholinesterase deficiency No 07/22/25 10:58 You/Your Family Experience No 07/22/25 10:58 fever (hyperthermia) with Relationship Recent Exposure to Contagious No 07/23/25 10:20 Disease Does patient have nerve No 07/22/25 10:58 stimulator Patient instructed to have device shut off --Does patient have Pacemaker No 07/23/25 10:20 or ICD? When Was Last Pacemaker Check QUESTION #4 FULL TEXT: You/Your Family Experience fever (hyperthermia) with Anesthesia Last Oral Intake Last Oral intake: Last Oral Intake NPO since 01:00 07/23/25 10:20 Meds taken in AM with sips of No 07/23/25 10:20 water? Meds patient instructed to take am of surgery PONV PONV - logistics vice president: PONV - logistics vice president Female No 07/22/25 10:58 HX of Motion Sickness No 07/22/25 10:58 HX of N/V After Surgery No 07/22/25 10:58 Non-Smoker No 07/22/25 10:58 Duration of Surgery greater No 07/22/25 10:58 than 60 minutes Number of Risk Factors PONV Score Height & Weight Height & Weight: Anesthesia: Height & Weight Height 5 ft 7 in 07/23/25 10:20 Weight: 78.8 kg 07/23/25 10:20 Body Mass Index (BMI) 27.1 07/23/25 10:20 Respiratory Assessment Respiratory Assessment - logistics vice president: Respiratory Tract Infection Hx - logistics vice president Hx Respiratory Tract Infection No 07/22/25 10:58 STOP Sleep Apnea STOP Sleep Apnea - logistics vice president: STOP Sleep Apnea - logistics vice president Hx Hypertension Yes: NO MED FOR MANY YRS 07/22/25 10:58 Hx Sleep Apnea No 07/22/25 10:58 CPAP No 10/14/17 01:40 BIPAP No 10/14/17 01:40 Do you snore loudly (louder Yes 07/22/25 10:58 than talking or can be heard Do you often feel tired/ Yes 07/22/25 10:58 fatigued/ sleepy during daytime? Has anyone observed you stop No 07/22/25 10:58 breathing during sleep? STOP Results Positive 07/22/25 10:58 QUESTION #5 FULL TEXT : Do you snore loudly (louder than talking or can be heard through closed doors)? Tobacco Use History Tobacco Use History - logistics vice president: Tobacco Use History - logistics vice president Tobacco Use Smoking Status Current every day smoker 07/22/25 10:58 Hx Tobacco Use Yes 07/22/25 10:58 Years Smoking Packs Smoked per Day Smoking Cessation Date was within the last 15 years Hx Smoking Cessation Date Hx Smoking Cessation No 07/22/25 10:58 Counseling Any additional information?: Yes Smoking Status: Current every day smoker (Patient did not smoke today.) Hematologic Medial History Hematologic Hx - logistics vice president: Hematologic Medical Hx - magazine hand Hx of Blood Transfusion No 07/22/25 10:58 Hx of Transfusion in last 3 No 07/22/25 10:58 Months Date of Last Transfusion (if within last 3 months) Ever experience any problems No 07/22/25 10:58 with transfusion(s)? Specify any problems Hx of Preganancy in last 3 N/A 07/22/25 10:58 Months Nurse Filling Out Transfusion DSCHRIBER 07/22/25 10:58 & Questions: Date: 07/22/25 07/22/25 10:58 Time: 10:59 07/22/25 10:58 Patient unable to answer at this time (ie. confused, unrespo /Reproduction History /Reproductive History - logistics vice president: /Reproductive Hx- logistics vice president Hx Now No 07/22/25 10:58 Gestational Age (in weeks): EDC: Hx Hx Para Hx Section SAB No 07/22/25 10:58 Active Medications Active Medications: Current Medications Generic Name Dose Route Start Last Admin Trade Name Freq PRN Reason Stop Dose Admin Lactated Ringer's 1,000 mls @ 15 mls/hr 07/23/25 10:15 07/23/25 10:26 IV 15 mls/hr .Q48H SEVERIANO Administration PFSH Medical History Wears glasses ADHD Depression Diabetes Restless legs Injury of back Migraine headache Blackout Difficulty chewing Chronic constipation Smoker Asthma Shortness of breath on exertion History of edema Hypertension History of varicocele GERD (gastroesophageal reflux disease) History of esophageal dilatation Paranoid schizophrenia History of intravenous drug abuse Hepatitis C Marijuana smoker Home Medications ?Medication ?Instructions ?Recorded ?Last Taken ?Type paliperidone palmitate 234 mg/1.5 234 mg IM Q30D 03/12/25 Unknown History mL intramuscular syringe (Invega Sustenna) clonidine HCl 0.1 mg tablet 0.1 - 0.2 mg PO QHS 07/15/25 Unknown History doxepin 50 mg capsule 50 mg PO QHS 07/15/25 Unknown History hydroxyzine pamoate 25 mg capsule 25 mg PO TID PRN PRN anxiety 07/15/25 Unknown History quetiapine 50 mg tablet 50 mg PO QHS 07/15/25 Unknown History albuterol sulfate 90 mcg/actuation 1 inh inhalation Q6H PRN shortness 07/22/25 Unknown History breath activated powder inhaler of breath or wheezing atomoxetine 100 mg capsule 100 mg PO DAILY 07/22/25 Unknown History benztropine 1 mg tablet 1 mg PO DAILY 07/22/25 Unknown History cholecalciferol (vitamin D3) 1,250 1,250 mcg PO QWEEK 07/22/25 Unknown History mcg (50,000 unit) capsule polyethylene glycol 3350 17 17 g PO DAILY 07/22/25 Unknown History gram/dose oral powder Allergy/AdvReac Type Severity Reaction Status Date / Time latex Allergy Mild Rash Verified 07/23/25 10:19 cyclobenzaprine HCl (From Allergy Angioedema Verified 07/23/25 10:19 Flexeril) Family History Other Anxiety Arthritis Bowel disease Breast cancer Cancer Colon cancer Diabetes Hypertension Thyroid disorder Surgical History History of incision and drainage History of esophagogastroduodenoscopy (EGD) History of placement of ear tubes Hx of tonsillectomy Hx of vasectomy Social History Smoking Status: Current every day smoker tobacco type: cigarettes and e-cigarettes alcohol intake: former substance use type: does not use what type of physical activity do you participate in: none Review of Systems (Anesthesia) ROS Narrative System reviewed and no additional complaints, except as documented. Physical Exam Resp Auscultation: wheezes expiratory wheezes (Patient had expiratory wheezes. I had him use his rescue inhaler (albuterol). Afterwards wheezes are significantly improved. Okay to proceed.)
--- NOTE | 2025-07-23 11:45 | EGD_PTH ---
PATIENT: ELIAS RICE LOC: EN U#:[id number] AGE/SX: 40/M ROOM: RE07/23/[address]: Dr. Anderson Conroy DO : 1985 BED: DIS: 07/23/2025 SPEC #: [id number] RECD: 07/23/25 14:34 STATUS: BEBETO MIKAYLA #: [id number] RISA: 07/23/25 11:[address]: Anderson Conroy DEPT: SURGICAL PATHOLOGY RECD BY: Yoel Farley ENTERED: 07/23/25 15:14 SP TYPE: EGD BIOPSY SUSAN DR: Lisa Primary Care Phys Tissues: A - Esophagus, NOS Procedures: Surgery Specimen Level IV HEADER OPERATION: EGD, balloon dilation PRE-OP DIAGNOSIS: Dysphagia TISSUE SUBMITTED: A- Random esophagus biopsy MICROSCOPIC DIAGNOSIS A. Esophagus, random biopsy: * Benign squamous epithelium with increased eosinophils (>50/HPF) See comment COMMENT The findings are not specific but may be seen in infections, medication-induced and eosinophilic esophagitis. Clinical and endoscopic correlation is recommended. MICROSCOPIC DESCRIPTION Slides are reviewed. GROSS DESCRIPTION A. Received in fixative is one container labeled with the patient's name and designated Random esophagus biopsy. The specimen consists of multiple irregular fragments of light sung soft tissue that in aggregate measure 1.4 x 0.7 x 0.1 cm. The specimen is totally submitted in one cassette. DE 07/23/2025 CPT:09687
[2025-07-23] MEDS: Lactated Ringers 500 ML IV (12:43)
[2025-07-23] MEDS: Lidocaine 1% (5 ml sdv) 5 ML Vial 10 ML IV (12:53)
--- NOTE | 2025-07-23 13:08 | PCM.POST.ANE ---
Anesthesia: Postop Eval I Current Vital Signs Temperature: 97.4 F Pulse Rate: 66 Blood Pressure: 118/78 Respiratory Rate: 16 Pulse Ox: 97 Oxygen Delivery Method: Room Air Assessment Airway patent: Yes Spontaneous unlabored respirations: Yes Mental status: Calm and Asleep nausea: No Vomiting: No Anesthesia Complication: No Fluid Hydration Crystalloid volume administer (ml): 500 Total IV fluid infused: 500 Progress Note Anesthesia document: Postop Eval 1 completed: Yes
--- NOTE | 2025-07-23 13:17 | OP.PROVAT_ITS ---
07/23/2025 No Primary Care Physician Re : Upper GI endoscopy procedure for Josafat Alvarenga Dear Care Physician This procedure was performed on July. My impressions and recommendations are as follows: Impressions : - Esophageal mucosal changes consistent with eosinophilic esophagitis. Dilated. - Normal stomach. - No gross lesions in the entire examined duodenum. - Biopsies were taken with a cold forceps for evaluation of eosinophilic esophagitis. Recommendations : - Discharge patient to home. - Resume previous diet. - Continue present medications. - Await pathology results. -Prednisolone 10 mL p.o. twice daily - Pantoprazole 40 mg p.o. twice daily My findings are described in the full procedure note, which is enclosed. If I can be of further assistance, please feel free to contact me at . Sincerely, Anderson Friend, 07/23/2025 1:16:51 PM This report has been signed electronically.
--- NOTE | 2025-07-23 13:17 | OP.EGD_ITS ---
Patient Name: Josafat Alvarenga Procedure Date: 07/23/2025 12:41 PM Date of : 1985 Age: 40 Procedure: Upper GI endoscopy Indications: Dysphagia Providers: Anderson Conroy DO Medicines: Monitored Anesthesia Care Patient Profile: This is a 40 year old male. Refer to note in patient chart for documentation of history and physical. Patient has symptoms of dysphagia with solids. Complications: No immediate complications. Procedure: Pre-Anesthesia Assessment: - Prior to the procedure, a History and Physical was performed, and patient medications and allergies were reviewed. The patient is competent. The risks and benefits of the procedure and the sedation options and risks were discussed with the patient. All questions were answered and informed consent was obtained. Patient identification and proposed procedure were verified by the physician in the pre-procedure area. Mental Status Examination: alert and oriented. Airway Examination: normal oropharyngeal airway and neck mobility. Respiratory Examination: clear to auscultation. CV Examination: normal. ASA Grade Assessment: II - A patient with mild systemic disease. After reviewing the risks and benefits, the patient was deemed in satisfactory condition to undergo the procedure. The anesthesia plan was to use monitored anesthesia care (MAC). Immediately prior to administration of medications, the patient was re-assessed for adequacy to receive sedatives. The heart rate, respiratory rate, oxygen saturations, blood pressure, adequacy of pulmonary ventilation, and response to care were monitored throughout the procedure. The physical status of the patient was re-assessed after the procedure. After obtaining informed consent, the endoscope was passed under direct vision. Throughout the procedure, the patient's blood pressure, pulse, and oxygen saturations were monitored continuously. The gastroscope was introduced through the mouth, and advanced to the second part of duodenum. The upper GI endoscopy was accomplished without difficulty. The patient tolerated the procedure well. Scope In: 12:54:07 PM Scope Out: 1:03:20 PM Total Procedure Duration Time 0 hours 9 minutes 13 seconds Findings: Mucosal changes including ringed esophagus, feline appearance, longitudinal furrows, small-caliber esophagus, circumferential folds and stenosis were found in the entire esophagus. Biopsies were obtained from the proximal and distal esophagus with cold forceps for histology of suspected eosinophilic esophagitis. Verification of patient identification for the specimen was done. A TTS dilator was passed through the scope. Dilation with a 15-16.5-18 mm balloon dilator was performed to 16 mm. The dilation site was examined and showed. Estimated blood loss was minimal. The entire examined stomach was normal. No gross lesions were noted in the entire examined duodenum. Impression: - Esophageal mucosal changes consistent with eosinophilic esophagitis. Dilated. - Normal stomach. - No gross lesions in the entire examined duodenum. - Biopsies were taken with a cold forceps for evaluation of eosinophilic esophagitis. Recommendation: - Discharge patient to home. - Resume previous diet. - Continue present medications. - Await pathology results. -Prednisolone 10 mL p.o. twice daily - Pantoprazole 40 mg p.o. twice daily Procedure Code(s): --- Professional --- 84932, Esophagogastroduodenoscopy, flexible, transoral; with transendoscopic balloon dilation of esophagus (less than 30 mm diameter) 25229, 59,51, Esophagogastroduodenoscopy, flexible, transoral; with biopsy, single or multiple CPT copyright 2021 [employer]. All rights reserved. The codes documented in this report are preliminary and upon franchise sales representative review may be revised to meet current compliance requirements. Anderson Conroy DO 07/23/2025 1:16:51 PM This report has been signed electronically. Number of Addenda: 0 Note Initiated On: 07/23/2025 12:41 PM
[2025-07-23] MEDS: Pantoprazole Sodium 40 MG in 0.9% Normal Saline (100mL MB+) 100 ML 300 MG IV (13:23)
--- NOTE | 2025-07-23 13:29 | SUR.PHASEI ---
pt complains of epigastric pain. dr friend called, dr said normal after dilitation. taking ice chips.
--- NOTE | 2025-07-23 14:20 | POSTOPAN2_ITS ---
Anesthesia Postop Eval I Sum Postop Eval Completion status Anesthesia document: Postop Eval 1 completed: Yes Anesthesia Postop Eval I Summary Anesthesia Postop Eval I Summary: Anesthesia Postop Eval I: Assessment Summary Airway patent Yes 07/23/25 13:08 PERSONNEL ADMINISTRATOR.MEDM Spontaneous unlabored Yes 07/23/25 13:08 PERSONNEL ADMINISTRATOR.MEDM respirations Mental status Calm,Asleep 07/23/25 13:08 PERSONNEL ADMINISTRATOR.MEDM nausea No 07/23/25 13:08 PERSONNEL ADMINISTRATOR.MEDM Vomiting No 07/23/25 13:08 PERSONNEL ADMINISTRATOR.MEDM Anesthesia Postop Eval I: Fluid Summary Crystalloid volume administer 500 07/23/25 13:08 PERSONNEL ADMINISTRATOR.MEDM (ml) Colloids volume administered ( ml) Blood Product volume administered (ml) Total IV fluid infused 500 07/23/25 13:08 PERSONNEL ADMINISTRATOR.MEDM Anesthesia Postop Eval I: Summary Notes Anesthesia Complication No 07/23/25 13:08 PERSONNEL ADMINISTRATOR.MEDM Anesthesia Complication Comment: Post-operative progress note Anesthesia: Postop Eval II Evaluation Mental status: Awake and Calm Pain Level: 0 nausea: No Vomiting: No Complications Anesthesia Complication: No
--- NOTE | 2025-07-23 14:20 | PCM.POSTANE2 ---
Anesthesia Postop Eval I Sum Postop Eval Completion status Anesthesia document: Postop Eval 1 completed: Yes Anesthesia Postop Eval I Summary Anesthesia Postop Eval I Summary: Anesthesia Postop Eval I: Assessment Summary Airway patent Yes 07/23/25 13:[address]ICER.MEDM Spontaneous unlabored Yes 07/23/25 13:[address] COURT OFFICER.MEDM respirations Mental status Calm,Asleep 07/23/25 13:[address] COURT OFFICER.MEDM nausea No 07/23/25 13:[address] OFFICER.MEDM Vomiting No 07/23/25 13:[address] OFFICER.MEDM Anesthesia Postop Eval I: Fluid Summary Crystalloid volume administer 500 07/23/25 13:[address] OFFICER.MEDM (ml) Colloids volume administered ( ml) Blood Product volume administered (ml) Total IV fluid infused 500 07/23/25 13:[address] OFFICER.MEDM Anesthesia Postop Eval I: Summary Notes Anesthesia Complication No 07/23/25 13:[address] OFFICER.MEDM Anesthesia Complication Comment: Post-operative progress note Anesthesia: Postop Eval II Evaluation Mental status: Awake and Calm Pain Level: 0 nausea: No Vomiting: No Complications Anesthesia Complication: No
== END 2025-07-23 13:51 | disposition home or self-care (01) ==
LOC: EN 09:55 → AC 09:57
PROVIDERS: Visit Provider Internal Medicine Gastroenterology
PROC: 0DJ08ZZ Inspection of Upper Intestinal Tract, Via Natural or Artificial Opening Endoscopic (ICD-10-PCS; CPT 43235; principal; 2025-07-23 11:40)
DX: K20.0 Eosinophilic esophagitis (principal); E11.9 Type 2 diabetes mellitus without complications; I10 Essential (primary) hypertension; J45.909 Unspecified asthma, uncomplicated; K21.9 Gastro-esophageal reflux disease without esophagitis; Z79.899 Other long term (current) drug therapy; F17.290 Nicotine dependence, other tobacco product, uncomplicated; K22.2 Esophageal obstruction; Z79.02 Long term (current) use of antithrombotics/antiplatelets; F17.210 Nicotine dependence, cigarettes, uncomplicated
CPT/HCPCS: 43239; 43249; 88305

== ENCOUNTER 2025-08-04 21:13 | Emergency (ER) | payer MEDICAID, SELFPAY ==
[2025-08-04 21:13] VITALS: BP 134/93; PULSE 79; RESP 16; TEMP 36.7; O2SAT 100; BMI 18.3
--- OUTSIDE RECORDS SUMMARY | 2025-08-04 21:59 | XMS RPT_ITS | CCD ---
Author Organization [facility] Care Team Providers Care Leak Gang Supervisor Name Role Phone Carmen Herrera MD Unavailable PROVIDER, UNKNOWN Unavailable Unavailable No, PCP Unavailable Unavailable Nelly Cagle Unavailable Unavailable Marce Barrienots Unavailable Unavailable PROVIDER, UNKNOWN Unavailable Unavailable No, PCP Unavailable Unavailable Unavailable Primary Care Provider UnavailShyam Peres Primary Care Provider [phone] Unavailable Primary Care Provider UnavailShyam Peres Primary Care Provider [phone] Hunter INCINERATOR PLANT LABORER-TOW TRUCK DISPATCHER, Shyam Rosenbaum Primary Care Provider Hunter INCINERATOR PLANT LABORER-TOW TRUCK DISPATCHER, Shyam Rosenbaum Primary Care Provider SHYAM HARRISON Primary Care Unavailable LIRA, HORTENCIA Attending Unavailable LIRA, HORTENCIA Referring Unavailable HARRISON, SHYAM L Primary Care Unavailable LIRA, HORTENCIA Attending Unavailable LIRA, HORTENCIA Referring Unavailable HARRISON, SHYAM L Primary Care Unavailable LIRA, HORTENCIA Attending Unavailable LIRA, HORTENCIA Referring Unavailable HARRISON, SHYAM L Primary Care Unavailable LIRA, HORTENCIA Attending Unavailable LIRA, HORTENCIA Referring Unavailable HARRISON, SHYAM L Primary Care Unavailable LIRA, HORTENCIA Attending Unavailable HARRISON, SHYAM L Referring Unavailable HARRISON, SHYAM L Primary Care Unavailable LIRA, HORTENCIA Attending Unavailable LIRA, HORTENCIA Referring Unavailable HARRISON, SHYAM L Primary Care Unavailable LIRA, HORTENCIA Attending Unavailable LIRA, HORTENCIA Referring Unavailable HARRISON, SHYAM L Primary Care Unavailable LIRA, HORTENCIA Attending Unavailable LIRA, HORTENCIA Referring Unavailable HARRISON, SHYAM L Primary Care Unavailable HARRISON, SHYAM L Primary Care Unavailable WILLIAM CEE Attending Unavailable SHYAM HARRISON Primary Care Unavailable HARPAL GUDINO Attending Unavailable HARRISON, SHYAM Rosenbaum Primary Care Unavailable HARRISON, SHYAM L Primary Care Unavailable HARRISON, SHYAM L Referring Unavailable SHYAM HARRISON Attending Unavailable SHYAM HARRISON Primary Care Unavailable Emmanuel Gonzalez MD Primary Care Provider Emmanuel Gonzalez MD Primary Care Provider AMA MEAD JUSTUS PAUL Attending Unavaila ble AMA , JUSTUS PAUL Admitting Unavaila ble SHAREE, CHRISTOPHER B Primary Care Unavailab le SHAREE, STEFFIOPHER B Primary Care Unavailab SONIA Pryor Attending Unavailable ASHLYN JARRELL, DR COX Primary Care Physician GILL BAXTER MD Attending Unavailable ASHLYN JARRELL, DR COX Primary Care Unavailab le Unavailable Primary Care Provider UnavailKAREN Armas Attending Unavailable FAUZIA SORENSON Referring Unavailable PHYSICIAN, NONE Primary Care Physician Unavailab le Wellington, Doreen S Unavailable Unavailable STEFFI GONZALEZOPHER B Primary Care Unavailab joni GONZALEZ, CHRISTOPHER B Primary Care Unavailab FAUZIA Magana Attending Unavailable SHAREE, CHRISTOPHER B Primary Care Unavailab FAUZIA Magana Attending Unavailable SHAREE, CHRISTOPHER B Primary Care Unavailab le RINCON, COMFORT Referring Unavailable SHAREE, CHRISTOPHER B Primary Care Unavailab FAUZIA Magana Attending Unavailable FAUZIA SORENSON Attending Unavailable AIMEELEY, CHRISTOPHER B Primary Care Unavailab SONIA Pryor Referring Unavailable BURSLEY, CHRISTOPHER B Primary Care Unavailab le SHAREE, CHRISTOPHER B Primary Care Unavailab le PHYSICIAN, NONE Primary Care Unavailable JERAMIE BRUNER MD Admitting Unavailable JERAMIE BRUNER MD Attending Unavailable MIKHAIL LORA MD Consulting Unavaila ble Care Physician, No Primary Primary Care Provider Unavailable Provider, Ed Physician Attending Provider Unavamirna perez Provider, Ed Physician Emergency Provider UnaDr. Gildardo Caldwell DO Attending Provider Dr. Gildardo Rubio DO Emergency Provider Dr. Ramo Heck DO Referring Provider [phone] Dr. Ramo Heck DO Emergency Provider Care Physician, No Primary Primary Care Provider Unavailable Dr. Ramo Heck DO Attending Provider Dr. Gary Nair DO Emergency Provider Care Physician, No Primary Primary Care Provider Unavailable Dr. Gary Nair DO Attending Provider Medardo JARRELL, Dr. Hayes Emergency Provider [phone] Medardo JARRELL, Dr. Hayes Attending Provider Care Physician, No Primary Referring Provider Un available William BLEND PLANT OPERATOR-CElsie Attending Provider Rafiq GUARDADO, Dr. Barron Attending Provider Rafiq GUARDADO, Dr. Barron Other Provider [phone] JARVIS KNOWLES DO Attending Unavailable PHYSICIAN, NONE Primary Care Unavailable MARGIE JARRELL, FROYLAN Brown Attending Unavail ilan GOLDBERG MD, DR COX Primary Care Unavailab joni GOLDBERG MD, DR COX Primary Care Unavailab joni HANSON MD, FROYLAN Brown Attending Unavail ilan DONNELLY MD, ADONAY Consulting Unavailable [facility] NETWORK[facility] Lott DO Attending Unavailable PHYSICIAN, NONE Primary Care Unavailable Gildardo Rubio Attending Unavailable Care Physician, No Primary Primary Care Unava ilable Provider, Ed Physician Attending Unavailab le Care Physician, No Primary Primary Care Unava ilable Care Physician, No Primary Primary Care Unava ilable Provider, Ed Physician Attending Unavailab le Care Physician, No Primary Primary Care Unava ilable Freddy Batres Attending Unavailable Freddy Batres Attending Unavailable Care Physician, No Primary Primary Care Unava ilable Care Physician, No Primary Referring Unava ilable Care Physician, No Primary Primary Care Unava ilable Anderson Conroy Attending Unavailable Care Physician, No Primary Primary Care Unava ilable Gary Nair Attending Unavailable SchwRamo onofre Attending Unavailable Schwjemima Ramo Referring Unavailable Care Physician, No Primary Primary Care Unava ilable Care Physician, No Primary Referring Unava ilable Care Physician, No Primary Primary Care Unava ilable Anderson Conroy Consulting Unavailable Anderson Conroy Attending Unavailable Care Physician, No Primary Referring Unava ilable Care Physician, No Primary Primary Care Unava ilable Elsie Thomas Attending Unavailable Allergies Allergy Classification Reported Allergen(s) Allergy Type Date of Onset Reaction(s) Facility (20 sources) cyclobenzaprine; Translations: [cyclobenzaprine] Drug Allergy 08-18-20 18 [facility]) Latex; Translations: [LATEX] Propensity to adverse reactions to drug 10-25-20 05 Anaphylaxis, Rash, Hives, Itching, Shortness of Breath [facility] (20 sources) cyclobenzaprine; Translations: [CYCLOBENZAPRINE HCL] Drug Allergy 12-17-19 15 Intolerance [facility] (1 source) cyclobenzaprine Drug Allergy 07-23-20 [facility] (1 source) Latex Drug allergy (disorder) 07-23-20 [facility] Medications Current Medications Medication Drug Class(es) Dates Sig (Normalized) Sig (Original) 5 ML paliperidone palmitate 312 MG/ML Prefilled Syringe [Invega] (4 sources) Start: 03-17-2024 Invega Hafyera 1560 mg/5 mL intramuscular suspension, extended release Dose : 1,560 mg =, Intramuscular, q6mo, shake well before using, # 5 mL, 0 Refill(s) Start Date: 03/17/24 Status: Ordered Medication Dispense Status: Completed Quantity: 5.0 Unit: mL Total Allowed Fills: 1 Fills Dispensed: 0 Start: 03-17-2024 Invega Hafyera 1560 mg/5 mL [...] 0 Refill(s) Start Date: 03/17/24 Status: Ordered 200 actuat albuterol 0.09 mg/actuat dry powder inhaler (20 sources) beta2-Adrenergic Agonist Start: 07-22-2025 Albut mt Sulfate 90 mcg/actuation aerosol powdr breath activated Active 1 NMA INHALATION EVERY 6 HOURS as needed for shortness of breath or wheezing July 22, 2025 12:00am Start: 03-12-2025 End: 07-15-2025 Albuterol Sulfate 90 mcg/act uation HFA aerosol inhaler Discontinued 2 NMA INHALATION EVERY 4 HOURS NEEDED as needed for shortness of breath or wheezing March 12, 2025 12:00am July 15, 2025 10:14pm Start: 03-25-2024 take 2 puff(s) by in halation every [...] MDI (90 mcg/inh) CFC free inhalation aerosol (4 sources) Start: 06-14-2014 take 2 puff(s) by inhalation four times daily albuterol MDI (90 mcg/inh) CFC free inhalation aerosol 2 puff(s), Inhalation, QID Start Date: 06/14/14 Status: Ordered Medication Dispense Status: Completed Total Allowed Fills: 1 Fills Dispensed: 0 Start: 06-14-2014 take 2 puff(s) by in [...] Status: Ordered ALPRAZolam 0.25 mg oral tablet (4 sources) Benzodiazepine Start: 08-17-2014 Xanax 0.25 mg oral tablet Dose : 0.25 mg = 1 tab(s), Oral, qDay Start Date: 08/17/14 Status: Ordered Medication Dispense Status: Completed Total Allowed Fills: 1 Fills Dispensed: 0 ARIPiprazole 10 mg oral tablet (4 sources) Atypical Antipsychotic Start: 06-14-2014 Abilify 10 mg oral tablet Dose : 10 mg = 1 tab(s), Oral, Daily Start Date: 06/14/14 Status: Ordered Medication Dispense Status: Completed Total Allowed Fills: 1 Fills Dispensed: 0 atomoxetine 100 mg oral capsule (20 sources) Norepinephrine Reuptake Inhibitor Start: 07-22-2025 take 1 capsule by mouth once daily Atomoxetine 100 mg capsule Active 100 mg PO DAILY July 22, 2025 12:00am Start: 02-01-2022 atomoxetine 10 0 mg oral capsule Dose : 100 mg = 1 cap(s), Oral, qAM, 0 Refill(s) Start Date: 03/17/24 Status: Ordered Medication Dispense Status: Completed Total Allowed Fills: 1 Fills Dispensed: 0 Start: 10-19-2017 End: 02-19-2018 take 1 capsule by mouth once daily Atomoxetine 25 MG capsule Discontinued 25 mg PO DAILY 30 0 October 19, 2017 1:00am February 19, 2018 4:58am Comment on above: Take 100 mg by mouth once daily. benzonatate 100 mg oral capsule (5 sources) Non-narcotic Antitussive Start: 4 take 1 capsule by mouth every eight hours as needed benzonatate (TESSALON PERLES) 100 mg capsule Take 1 capsule by mouth three times a day as needed for cough. 21 capsule 08/28/2024 Active benztropine mesylate 1 mg oral tablet (20 sources) Anticholinergic, Antihistamine Start: 5 take 1 tablet by mouth once daily Benztropine 1 mg tablet Active 1 mg PO DAILY July 22, 2025 12:00am Start: 09-22-2019 benztropine 2 mg oral tablet Dose : 2 mg = 1 tab(s), Oral, TID, # 180 tab(s), 0 Refill(s) Start Date: 03/17/24 Status: Ordered Medication Dispense Status: Completed Quantity: 180.0 Unit: tab(s) Total Allowed Fills: 1 Fills Dispensed: 0 Start: 09-22-2019 End: 10-21-2024 take 1 mg by mouth twice daily Benztropine 2 MG tablet Discontinued 1 mg PO TWICE A DAY September 22, 2019 1:00am October 21, 2024 2:50am End: 08-28-2024 take 1 tablet by mouth [...] UNDER TONGUE ONCE DAILY 0 08/03/2021 Active cholecalciferol 1.25 mg oral capsule (1 source) Vitamin D Start: 07-22-2025 take 1 capsule by mouth every week Cholecalciferol (Vitamin D3) 1,250 mcg (50,000 unit) capsule Active 1250 ug PO EVERY WEEK July 22, 2025 12:00am cloNIDine hydrochloride 0.1 mg oral tablet (20 sources) Central alpha-2 Adrenergic Agonist Start: 04-19-2023 take 0.1-0.2 mg by mouth at bedtime Clonidine Hcl 0.1 mg tablet Active 0.1 - 0.2 mg PO AT BEDTIME July 15, 2025 12:00am Start: 08-17-2021 take 1 tablet by shadia th twice daily cloNIDine 0.1 MG tablet Take 1 tablet by mouth 2 times daily. 0 08/17/2021 Active Comment on above: Take 0.1 mg by mouth twice daily. diphenhydrAMINE hydrochloride 2.5 mg/ml oral solution (20 sources) Histamine-1 Receptor Antagonist take 20 mL by mouth once daily diphenhydrAMINE 12.5 MG/5ML elixir Take 20 mL by mouth daily. 0 Active doxepin hydrochloride 50 mg oral capsule (3 sources) Tricyclic Antidepressant Start: take 1 capsule by mouth at bedtime Doxepin 50 mg capsule Active 50 mg PO AT BEDTIME July 15, 2025 12:00am doxycycline monohydrate 100 mg oral capsule (3 sources) Tetracycline-class Drug Start: End: take 1 capsule by mouth twice daily [...] after hydrOXYzine pamoate 25 mg oral capsule (14 sources) Antihistamine Start: 03-17-2024 take 1 capsule by mouth three times daily as needed for anxiety Hydroxyzine Pamoate 25 mg capsule Active 25 mg PO 3 TIMES DAILY NEEDED as needed for anxiety July 15, 2025 12:00am Start: 03-17-2024 take 1 capsule by mo [facility] once daily hydrOXYzine pamoate (VISTARIL) 25 mg [...] 03/14/2023 Discontinued ibuprofen 800 mg oral tablet (9 sources) Nonsteroidal Anti-inflammatory Drug Start: 02-28-2024 End: 03-29-2024 ibuprofen 800 mg oral tablet Dose : 800 mg = 1 tab(s), Oral, TID, PRN as needed for pain, # 30 tab(s), 0 Refill(s) Start Date: 03/17/24 Status: Ordered Medication Dispense Status: Completed Quantity: 30.0 Unit: tab(s) Total Allowed Fills: 1 Fills Dispensed: 0 Comment on above: Take 1 tablet by [...] prefilled syringe (20 sources) Atypical Antipsychotic Start: 03-12-2025 Paliperidone Palmitate (Invega Sustenna) 234 mg/1.5 mL syringe Active 234 mg IM Q30D March 12, 2025 12:00am Start: 04-16-2023 INVEGA SUSTENN A 234 mg/1.5 mL syrg injection every 6 [...] above: Inject intramuscular ly. once every month. pantoprazole 40 mg delayed release oral tablet (1 source) Proton Pump Inhibitor Start: 07-23-20 take 1 tablet by mouth twice daily Pantoprazole 40 mg tablet,delayed release (DR/EC) Active 40 mg PO TWICE A DAY 120 60 3 July 23, 2025 12:00am polyethylene glycol 3350 63430 mg powder for oral solution (6 sources) Osmotic Laxative Start: 07-22-20 take 17 g by mouth once daily Polyethylene Glycol 3350 17 gram/dose powder Active 17 g PO DAILY July 22, 2025 12:00am Start: 05-01-2025 End: 07-15-2025 Polyethylene Glycol 3350 (Mi ralax) 17 gram/dose powder Discontinued 17 g PO DAILY 119 0 May 01, 2025 12:00am July 15, 2025 10:14pm prednisoLONE 30 mg disintegrating oral tablet (1 source) Corticosteroid Start: 07-23-2025 take 30 mg by mouth twice daily Prednisolone 15 mg/5 mL solution Active 30 mg PO TWICE A DAY 600 30 0 July 23, 2025 12:00am August 21, 2025 12:00am QUEtiapine 50 mg oral tablet (3 sources) Atypical Antipsychotic Start: 07-15-2025 take 1 tablet by mouth at bedtime Quetiapine 50 mg tablet Active 50 mg PO AT BEDTIME July 15, 2025 12:00am sulfamethoxazole 800 mg / trimethoprim 160 mg oral tablet (1 source) Dihydrofolate Reductase Inhibitor Antibacterial, Sulfonamide Antimicrobial Start: 02-28-2024 End: 03-09-2024 take 1 tablet by mouth twice daily sulfamethoxazole- trimethoprim (BACTRIM DS) 800-160 mg per tablet Take 1 tablet by mouth two times a day for 10 days. 20 tablet 0 02/28/2024 03/09/2024 Active Comment on above: Take 1 tablet by shadia two times a day for 10 days. tamsulosin hydrochloride 0.4 mg oral capsule (20 sources) alpha-Adrenergic Scotty Start: 10-17-2019 take 1 capsule by mouth once daily at bedtime tamsulosin ER (FLOMAX) 0.4 mg cap Take 1 capsule by mouth daily at bedtime. 30 capsule 1 10/17/2019 Active Comment on above: Take 1 capsule by mo [facility] daily at bedtime. varenicline 1 mg oral tablet (20 sources) Partial Cholinergic Nicotinic Agonist Start: 02-03-2020 take 1 tablet by mouth twice daily [...] twice daily. Take 1 tablet by shadia twice daily. Completed/Discontinued Medications Medication Drug Class(es) Dates Sig (Normalized) Sig (Original) acetaminophen 325 mg / HYDROcodone bitartrate 5 mg oral tablet (8 sources) Opioid Agonist Start: 08-25-2018 End: 09-09-2020 [...] every four hours as needed for pain [place] 325- 5 mg oral tablet Dose = 1 tab(s), Oral, q4h, PRN for pain, 0 Refill(s) Start Date: 08/17/14 Status: Ordered Medication Dispense Status: Completed Total Allowed Fills: 1 Fills Dispensed: 0 bacitracin 0.5 unt/mg topica l ointment (1 source) Start: 07-14-2020 End: 07-14-2020 bacitracin ointment 1 Application Start: 07-14-2020 End: 07-14-2020 bacitracin ointment 1 Applic ation cefdinir 25 mg/ml oral suspension (5 sources) Cephalosporin Antibacterial Start: 10-08-2017 End: 10-19-2017 take 300 mg by mouth twice daily Cefdinir 125 MG/5 ML Ml Discontinued 300 mg PO TWICE A DAY 10 0 October 08, 2017 1:00am October 19, 2017 6:11pm CLONIDINE-CHLORTH ALIDONE PO (2 sources) Start: 08-10-2020 End: 09-23-2020 take 40 mg by mouth twice daily CLONIDINE-CHLORTHAL IDONE PO Take 40 mg by mouth 2 times daily. 0 08/10/2020 09/23/2020 Discontinued Start: 08-10-2020 take 40 mg by mouth twice daily CLONIDINE-CHLORTHALIDONE PO Take 40 mg b y mouth 2 times daily. 0 08/10/2020 Active docosahexaenoic acid 120 mg / eicosapentaenoic acid 180 mg oral capsule (11 sources) Start: 09-26-2021 End: 03-14-2023 take 2 capsules by mouth twice daily Mineral-3 Fatty Acids (Fish Oil) 1000 MG capsule [...] 4 mg naproxen 500 mg oral tablet (8 sources) Nonsteroidal Anti-inflammatory Drug Start: 07-16-2019 End: 10-21-2024 take 1 tablet by mouth twice daily as needed Naproxen 500 MG tablet Discontinued 500 mg PO TWICE DAILY NEEDED September 22, 2019 1:00am October 21, 2024 2:50am Drug Treatment Unknown - unknown (6 sources) [...] Date Documented Da te Episodic/Chronic Abdominal pain (10 sources) Unspecified abdominal pain; Translations: [Right flank pain] Onset: 04-10-2023 Episodic Acute and unspecified renal failure (5 sources) Acute renal failure syndrome; Translations: [Acute kidney failure, unspecified] 10-19-2017 Episodic Allergic reactions (5 sources) Latex allergy status; [...] chronic gastritis without bleeding] Onset: 09-18-2017 Chronic Hepatitis (20 sources) Viral hepatitis C; Translations: [Unspecified viral hepatitis C without hepatic coma] Onset: 04-01-2014 04-01-2014 Episodic Immunizations and screening for infectious disease (2 [...] dyssynergia] Onset: 04-01-2010 Chronic Other gastrointestinal disorders (4 sources) Dysphagia, unspecified; Translations: [Dysphagia, unspecified] Onset: 09-18-2017 Episodic Other gastrointestinal disorders (1 source) Diarrhea; Translations: [Diarrhea, unspecified] Episodic Other gastrointestinal disorders (20 sources) Dysphagia; Translations: [Dysphagia, unspecified] Onset: 02-23-2014 02-23-2014 Episodic Other gastrointestinal disorders (1 source) Other constipation; Translations: [Chronic constipation] Onset: 09-25-2024 Episodic Other gastrointestinal disorders (5 sources) Constipation; Translations: [Constipation, unspecified] 05-01-2025 Episodic Other injuries and conditions due to external causes (12 sources) Foreign body in esophagus; Translations: [Unspecified foreign [...] foreign body in esophagus causing other injury, subsequent encounter; Translations: [Unspecified foreign body in esophagus causing other injury, subsequent encounter] Onset: 07-31-2025 Episodic Other injuries and conditions due to external causes (1 source) Food in esophagus causing other injury, initial encounter; Translations: [Food in esophagus causing other injury, initial encounter] Onset: 07-27-2025 Episodic Other injuries and conditions due to [...] testicular pain] Episodic Other male genital disorders (4 sources) Pain of right testicle; Translations: [Right testicular pain] 02-01-2024 Episodic Other male genital disorders (3 sources) Disorder of male genital organ; Translations: [Hydrocele, unspecified] 07-15-2025 Episodic Other male genital disorders (1 source) Right testicular pain; Translations: [Right testicular pain] Onset: 07-27-2025 Episodic Other nervous system disorders (5 sources) Paresthesia; Translations: [Paresthesia of skin] 10-29-2024 Episodic Other nervous system disorders (5 sources) Dysphasia; Translations: [Dysphasia] 09-24-2017 Episodic Other non-traumatic joint disorders (1 source) Pain in left wrist; Translations: [Pain in left wrist] Onset: 07-27-2025 Episodic Other upper respiratory disease (20 sources) [...] reasons] Onset: 02-21-2025 Episodic Residual codes; unclassified (5 sources) Patient walked out; Translations: [Procedure and treatment not carried out because of patient's decision for other reasons] 10-29-2024 Episodic Residual codes; unclassified (1 source) Procedure and treatment not carried out due to patient leaving prior to being seen by health care provider; Translations: [Procedure and treatment not carried out due to patient leaving prior to being seen by health care provider] Onset: 07-27-2025 Episodic Schizophrenia and other psychotic disorders (20 sources) Schizoaffective disorder; Translations: [Schizoaffective disorder, unspecified] Onset: 01-14-2010 09-23-2020 Chronic Comment on above: paranoid ON MED Skin and subcutaneous tissue infections (5 sources) Cellulitis of right upper limb; Translations: [Cellulitis of right upper limb] 10-14-2017 Episodic Sprains and strains (2 sources) Sprain of wrist; Translations: [Unspecified sprain of unspecified wrist, initial encounter] Onset: 07-15-2025 Episodic Substance-related disorders (20 sources) Nicotine dependence, unspecified, [...] Acute cough; Translations: [Acute cough] Onset: 08-28-2024 Unclassified (2 sources) Recurrent esophageal foreign bodies Past or Other Problems Problem Classification Problem Date Documented Da te Episodic/Chronic Calculus of urinary tract (5 sources) Kidney stone; Translations: [Calculus of kidney] Onset: 03-29-2022 Episodic Contraceptive and procreative management (20 sources) Patient encounter status; Translations: [Encounter for sterilization] Onset: 10-19-2023 08-10-2023 Episodic Esophageal disorders (2 sources) Esophagitis, unspecified; Translations: [Esophagitis, unspecified] Onset: 09-18-2017 Episodic Genitourinary symptoms and ill-defined conditions (20 sources) Increased frequency of urination; Translations: [Frequency of micturition] Onset: 04-01-2010 Episodic Inflammatory conditions of male genital organs [...] Onset: 02-10-2009 02-10-2009 Episodic Other gastrointestinal disorders (5 sources) Chronic [...] Results Test Name Value Interpretation Reference Range Facility EGD Reporton 07-23-2025 EGD Report [facility] Medical Records Department [address] [place] [address] EGD Report MR#: [id number] Acct: [id number] Name: JOSAFAT ALVARENGA Rep #: [id number] : 1985 40 From: Anderson Conroy DO PCP: Care Physician,No Primary Status:[facility] Patient Name: Josafat Alvarenga Procedure Date: 07/23/2025 12:41 PM Date of : 1985 Age: 40 Procedure: Upper GI endoscopy Indications: Dysphagia Providers: Anderson Conroy DO Medicines: Monitored Anesthesia Care Patient Profile: This is a 40 year old male. Refer to note in patient chart for documentation of history and physical. Patient has symptoms of dysphagia with solids. Complications: No immediate complications. Procedure: Pre-Anesthesia Assessment: - Prior to the procedure, a History and Physical was performed, and patient medications and allergies were reviewed. The patient is competent. The risks and benefits of the procedure and the sedation options and risks were discussed with the patient. All questions were answered and informed consent was obtained. Patient identification and proposed procedure were verified by the physician in the pre-procedure area. Mental Status Examination: alert and oriented. Airway Examination: normal oropharyngeal airway and neck mobility. Respiratory Examination: clear to auscultation. CV Examination: normal. ASA Grade Assessment: II - A patient with mild systemic disease. After reviewing the risks and benefits, the patient was deemed in satisfactory condition to undergo the procedure. The anesthesia plan was to use monitored anesthesia care (MAC). Immediately prior to administration of medications, the patient was re-assessed for adequacy to receive sedatives. The heart rate, respiratory rate, oxygen saturations, blood pressure, adequacy of pulmonary ventilation, and response to care were monitored throughout the procedure. The physical status of the patient was re-assessed after the procedure. After obtaining informed consent, the endoscope was passed under direct vision. Throughout the procedure, the patient's blood pressure, pulse, and oxygen saturations were monitored continuously. The gastroscope was introduced through the mouth, and advanced to the second part of duodenum. The upper GI endoscopy was accomplished without difficulty. The patient tolerated the procedure well. Scope In: 12:54:07 PM Scope Out: 1:03:20 PM Total Procedure Duration Time 0 hours 9 minutes 13 seconds Findings: Mucosal changes including ringed esophagus, feline appearance, longitudinal furrows, small-caliber esophagus, circumferential folds and stenosis were found in the entire esophagus. Biopsies were obtained from the proximal and distal esophagus with cold forceps for histology of suspected eosinophilic esophagitis. Verification of patient identification for the specimen was done. A TTS dilator was passed through the scope. Dilation with a 15-16.5-18 mm balloon dilator was performed to 16 mm. The dilation site was examined and showed. Estimated blood loss was minimal. The entire examined stomach was normal. No gross lesions were noted in the entire examined duodenum. Impression: - Esophageal mucosal changes consistent with eosinophilic esophagitis. Dilated. - Normal stomach. - No gross lesions in the entire examined duodenum. - Biopsies were taken with a cold forceps for evaluation of eosinophilic esophagitis. Recommendation: - Discharge patient to home. - Resume previous diet. - Continue present medications. - Await pathology results. -Prednisolone 10 mL p.o. twice daily - Pantoprazole 40 mg p.o. twice daily Procedure Code(s): --- Professional --- 79608, Esophagogastroduodenosc opy, flexible, transoral; with transendoscopic balloon dilation of esophagus (less than 30 mm diameter) 70631, 59,51, Esophagogastroduodenosc opy, flexible, transoral; with biopsy, single or multiple CPT copyright 2021 [employer]. All rights reserved. The codes documented in this report are preliminary and upon ceramic chemist review may be revised to meet current compliance requirements. Anderson Conroy DO 07/23/2025 1:16:51 PM This report has been signed electronically. Number of Addenda: 0 Note Initiated On: 07/23/2025 12:41 PM 07/23/25 1317 Date Anderson Conroy DO Cosigner Signature: Date (if indicated) CC: No Primary Care Physician; Anderson Conroy DO Date Dictated: 07/23/25 1241 Date Transcribed: Academic Advisement Director: ALIN Mcdonald [facility] MR/OP.Meera 07-23-2025 MR/OP.[facility] Medical Records Department [address] [id number] Provation Physician Letter MR#: [id number] Acct: [id number] Name: JOSAFAT ALVARENGA Rep #: [id number] : 1985 40 From: Anderson Conroy DO PCP: Care Physician,No Primary Status:REG [facility] 07/23/2025 No Primary Care Physician Re : Upper GI endoscopy procedure for Josafat Alvarenga Dear Care Physician This procedure was performed on July. My impressions and recommendations are as follows: Impressions : - Esophageal mucosal changes consistent with eosinophilic esophagitis. Dilated. - Normal stomach. - No gross lesions in the entire examined duodenum. - Biopsies were taken with a cold forceps for evaluation of eosinophilic esophagitis. Recommendations : - Discharge patient to home. - Resume previous diet. - Continue present medications. - Await pathology results. -Prednisolone 10 mL p.o. twice daily - Pantoprazole 40 mg p.o. twice daily My findings are described in the full procedure note, which is enclosed. If I can be of further assistance, please feel free to contact me at . Sincerely, Anderson Conroy DO 07/23/2025 1:16:51 PM This report has been signed electronically. 07/23/25 1317 Date Anderson Conroy DO Cosigner Signature: Date (if indicated) CC: No Primary Care Physician; Anderson Conroy DO Date Dictated: 07/23/25 1241 Date Transcribed: Academic Advisement Director: ALIN Signed [facility] MR/POSTOP.[facility] 07-23-2025 MR/POSTOP.[facility] Medical Records Department [address] [place] [address] Anesthesia Postop Eval I 07/23/25 1308 MR#: [id number] Acct: [id number] Name: JOSAFAT ALVARENGA Rep #: [id number] : 1985 40 From: Justus Mac CRNA PCP: Care Physician,No Primary Status:REG [facility] Y Race: C Location: [place] [address] Anesthesia: Postop Eval I Current Vital Signs Temperature: 97.4 F Pulse Rate: 66 Blood Pressure: 118/78 Respiratory Rate: 16 Pulse Ox: 97 Oxygen Delivery Method: Room Air Assessment Airway patent: Yes Spontaneous unlabored respirations: Yes Mental status: Calm and Asleep nausea: No Vomiting: No Anesthesia Complication: No Fluid Hydration Crystalloid volume administer (ml): 500 Total IV fluid infused: 500 Progress Note Anesthesia document: Postop Eval 1 completed: Yes 07/23/25 1308 Date Justus Mac CRNA Cosigner Signature: Date CC: Signed Normal [facility] MR/HABONKSG4yr 07-23-2025 MR/POSTOPAN2 [facility] Medical Records Department [address] [place] [address] Anesthesia Postop Eval II 07/23/25 1420 MR#: [id number] Acct: [id number] Name: JOSAFAT ALVARENGA Rep #: [id number] : 1985 40 From: Flor Naylor CRNA PCP: Care Physician,No Primary Status:[facility] Y Race: C Location: [place] Anesthesia Postop Eval I Sum Postop Eval Completion status Anesthesia document: Postop Eval 1 completed: Yes Anesthesia Postop Eval I Summary Anesthesia Postop Eval I Summary: Anesthesia Postop Eval I: Assessment Summary Airway patent Yes 07/23/25 13:08 EAR FLAP BINDER.MEDM Spontaneous unlabored Yes 07/23/25 13:08 EAR FLAP BINDER.MEDM respirations Mental status Calm,Asleep 07/23/25 13:08 EAR FLAP BINDER.MEDM nausea No 07/23/25 13:08 EAR FLAP BINDER.MEDM Vomiting No 07/23/25 13:08 EAR FLAP BINDER.MEDM Anesthesia Postop Eval I: Fluid Summary Crystalloid volume administer 500 07/23/25 13:08 EAR FLAP BINDER.MEDM (ml) Colloids volume administered ( ml) Blood Product volume administered (ml) Total IV fluid infused 500 07/23/25 13:08 EAR FLAP BINDER.MEDM Anesthesia Postop Eval I: Summary Notes Anesthesia Complication No 07/23/25 13:08 EAR FLAP BINDER.MEDM Anesthesia Complication Comment: Post-operative progress note Anesthesia: Postop Eval II Evaluation Mental status: Awake and Calm Pain Level: 0 nausea: No Vomiting: No Complications Anesthesia Complication: No 07/23/25 1420 Date Flor Naylor CRNA Cosigner Signature: Date CC: Signed Normal [facility] Surgery Specimen Level Jennifer 07-23-2025 Surgery Specimen Level IV Patient Age/Sex Location Account Attending Physician JOSAFAT ALVARENGA 40/M EN [id number] Anderson Conroy DO Specimen: [id number] Received: 07/23/25 Status: BEBETO Casiano Num: [id number] Spec Type: EGD BIOPSY Subm Dr: Anderson Conroy DO HEADER OPERATION: EGD, balloon dilation PRE-OP DIAGNOSIS: Dysphagia TISSUE SUBMITTED: A- Random esophagus biopsy MICROSCOPIC DIAGNOSIS A. Esophagus, random biopsy: * Benign squamous epithelium with increased eosinophils (>50/HPF) See comment COMMENT The findings are not specific but may be seen in infections, medication-induced and eosinophilic esophagitis. Clinical and endoscopic correlation is recommended. MICROSCOPIC DESCRIPTION Slides are reviewed. GROSS DESCRIPTION A. Received in fixative is one container labeled with the patient's name and designated Random esophagus biopsy. The specimen consists of multiple irregular fragments of light sung soft tissue that in aggregate measure 1.4 x 0.7 x 0.1 cm. The specimen is totally submitted in one cassette. [place] 07/23/2025 [facility]:[id number] Patient Age/Sex Location Account Attending Physician JOSAFAT ALVARENGA 40/M EN [id number] Anderson Conroy DO Signed (signature on file) Dr. Marla Batres DO 07/24/25 1126 Normal [facility] Comment on above: Performed By: #### P SUIV ####[facility] [address] [place], [place], [id number] Gastroenterology Visit Repor ton 07-20-2025 Gastroenterology Visit Report [facility] Gastroenterology [address] [place] [address] OFFICE VISIT Date of Service: 07/20/25 MR#: [id number] Acct: [id number] Name: JOSAFAT ALVARENGA Rep #: [id number] : 1985 Provider: SHANE zapien Age/Sex: 40/M Location[place] [facility] Status: Signed Intake Vital Signs 05/01/25 19:26 07/15/25 21:13 07/20/25 14:28 Height 5 ft 7 in 5 ft 7 in 5 ft 7 in Weight: 175 lb BMI 27.3 BP 122/82 H Respiration 18 Pulse 93 Temp 97.9 F Temp Source Temporal Pulse Oximetry (%) 96 Oxygen Delivery Method room air Intake Visit Reasons: Dysphagia Chief Complaint: dysphagia Pomology Teacher Required: No Accompanied by: Self Is patient in pain?: No Allergies latex Allergy (Mild, Verified 07/20/25 14:21) Rash cyclobenzaprine HCl (From Flexeril) Allergy (Verified 07/20/25 14:21) Angioedema Medications ???Medication ???Instructions ???Recorded ???Confirmed ???Type paliperidone palmitate 234 mg/1.5 234 mg IM Q30D 03/12/25 07/20/25 History mL intramuscular syringe (Invega Sustenna) clonidine HCl 0.1 mg tablet 0.1 - 0.2 mg PO QHS 07/15/2507/20 History doxepin 50 mg capsule 50 mg PO QHS 07/15/25 07/20/25 His tory hydroxyzine pamoate 25 mg capsule 25 mg PO TID PRN PRN anxiety 02/0307/20/25 History quetiapine 50 mg tablet 50 mg PO QHS 07/15/25 07/20/25 His tory PFSH Medical History GERD (gastroesophageal reflux disease) Headache Kidney stones Emotional problems Chronic bronchitis Bone fracture History of esophageal dilatation Paranoid schizophrenia Foreign body in throat History of intravenous drug abuse Erectile dysfunction Hepatitis C Marijuana smoker Surgical History History of placement of ear tubes Hx of tonsillectomy Hx of vasectomy Family History Other Anxiety Arthritis Bowel disease Breast cancer Cancer Colon cancer Diabetes Hypertension Thyroid disorder Social History Smoking Status: Light Smoker (<10/day) alcohol intake: former substance use type: does not use what type of physical activity do you participate in: none HPI HPI Chief Complaint: dysphagia Details: ADMISSION February 2025 - GI CONSULT NOTE 02/22/2025 Attempted to see pt this morning but [...] thus left AMA prior to me seeing him - swirling esophagus diagnosed by [facility] - reports episodes of dysphagia date back to childhood - dysphagia to meat and bread - getting worse - dysphagia for a long time - weight is stable - scared to eat - reports even a pea can get stuck - Glucagon 1 month ago in [place] - EGD 2.5 months ago - 03/12/2025 seen in ER and Glucagon - reports he has had 2 EGD this year - personal h/o Asthma - chronic constipation, takes Miralax daily, typically has a BM every 3 days - denies any heart or lung disease - denies any kidney disease ROS Const Constitutional: Positive for headache(s); No fatigue, fever(s) or weight change ENT ENT: Positive for headache(s) and difficulty swallowing Gastro GI: Positive for abdominal pain, change in bowel habits and difficulty swallowing; No belching, bloating, change in stool character, coffee ground emesis, constipation, cramping, diarrhea, heartburn, feeling full early, excessive flatus, incontinent of stools, Vomiting blood/hematemesis, Blood in stool, loose stools, Black,tarry stools, nausea/dyspepsia, pain with swallowing, vomiting or other Musc Musculoskeletal: No joint pain Skin Skin: No yellowing of the eye or itchy eyes Neuro Neurology: Positive for headache(s) Psych Psychiatric: No anxiety and No depression Endo Endocrine: No fatigue or weight change Aller/Imm Allergy/Immunologic: No itchy eyes Kuldip/Lymp Hematologic/Lymphatic: No easy bleeding or easy bruising Exam Const General: cooperative, healthy appearing, no acute distress and well developed Nutritional Appearance: average body habitus and well nourished Orientation: alert and oriented x3 HENMT Head: normocephalic Ears: hearing grossly normal bilaterally Mouth: moist mucous membranes Eyes Conjunctivae: conjunctivae normal Sclera: sclerae normal Neck Neck: normal visual inspection, full ROM and trachea midline Resp Effort Inspection: normal respiratory effort, able to speak in complete sentences and s (more content not included)... Normal [facility] Bilirubin Test strip Ql (U)O rdered By: Freddy Batres on 07-15-2025 Bilirubin Ql (U) Negative Negative [facility] Emergency Department Summary on 07-15-2025 Emergency Department Summary [facility] Medical Records Department [address] [place] [address] Emergency Department Summary 07/15/25 MR#: [id number] Acct: [id number] Name: JOSAFAT ALVARENGA Rep #: [id number] : 1985 40 From: Freddy Batres MD PCP: Care Physician,No Primary Status:REG ER Location: ED HPI History of Present Illness Chief Complaint: Male Pain/Injury Informant: patient Pain Onset: Today and Hours Context: Sudden Onset Timing: Continuous Current Severity: Moderate Maximum Severity: Moderate Narrative Narrative: 40-year-old male history of paranoid schizophrenia, asthma and drug abuse. Prior varicocele that was surgically repaired. States he was having intercourse with his significant other tonight. About an hour ago he had sudden onset of right testicle pain. Denies any dysuria. No hematuria. No trauma. No history of torsion. Prior similar symptoms: Yes Recent Illness/Hospitalization : No PFSH PFSH Medical History Paranoid schizophrenia Foreign body in throat History of intravenous drug abuse Erectile dysfunction Hepatitis C Marijuana smoker Home Medications ???Medication ???Instructions ???Recorded ???Last Taken ???Type paliperidone palmitate 234 mg/1.5 234 mg IM Q30D 03/12/25 Unknown H istory mL intramuscular syringe (Invega Sustenna) clonidine HCl 0.1 mg tablet 0.1 - 0.2 mg PO QHS 07/15/25 Unkno wn History doxepin 50 mg capsule 50 mg PO QHS 07/15/25 Unknown Hist ory hydroxyzine pamoate 25 mg capsule 25 mg PO TID PRN PRN anxiety 02/03 Unknown History quetiapine 50 mg tablet 50 mg PO QHS 07/15/25 Unknown Hist ory Allergy/AdvReac Type Severity Reaction Status Date / Time latex Allergy Mild Rash Verified 07/15/25 21:13 cyclobenzaprine HCl (From Allergy Angioedema Verified 07/15/25 21:13 Flexeril) Social History Smoking Status: Current every day smoker tobacco type: cigarettes ROS ROS ED ROS Narrative Denies recent illness. Constitutional Constitutional ED: Denies fever(s) Eyes Eyes: Denies blurry vision ENT ENT ED: Denies ear pain Cardiovascular Cardiovascular: Denies chest pain Respiratory/Chest Respiratory/Chest: Denies cough or dyspnea Gastrointestinal Gastrointestinal: Denies abdominal pain Genitourinary Genitourinary ED: Denies dysuria, hematuria or urinary frequency Musculoskeletal Musculoskeletal: Denies arthralgias or back pain Integumentary Denies abscess Neurologic Neurologic: Denies headache(s) Psychiatric Psychiatric: Denies anxiety Endocrine Endocrinology: Denies polydipsia or polyphagia Hematologic/Lymphatic Hematologic/Lymphatic: Denies easy bleeding, easy bruising or lymphadenopathy Allergic/Immunologic Allergic/Immunologic ED: Denies mouth swelling, tongue swelling or urticaria EXAM Physical Exam Narrative Exam Narrative: 40-year-old male lying in bed vital signs stable afebrile. Significant other seen in the room. H EENT exam pupils round react light. Moist mucous membranes. Neck nontender. Lungs clear to auscultation. Heart regular rhythm no murmur. Rate about 90. Abdomen soft, nontender, nondistended normal bowel sounds without peritoneal signs. External exam slightly elevated right testicle positive cremasterics reflex bilaterally. No mass. No swelling. No edema. No discoloration or redness. No obvious hernia. Circumcised male. No inguinal lymphadenopathy. Moving all 4 extremities. Nontender. No edema. Normal strength and range of motion. He is awake and alert. Answering questions following commands. Const Vital Signs: 07/15/25 21:13 Temperature 97.4 F L Temperature Source Temporal Pulse Rate 87 Respiratory Rate 22 H Blood Pressure 146/94 H Blood Pressure Mean 111 Pulse Ox 98 Oxygen Delivery Method Room Air Positive well nourished and well developed; Negative for obese, cachectic, contractures or unkempt General Appearance ED: well developed and NAD; Negative for unkempt, cachectic or contractures Nutritional Appearance: Negative for cachectic or obese HEENT Reports moist mucous membranes normocephalic and atraumatic Eyes PERRL and EOMs intact bilaterally General Eye ED: Negative for pale conjunctiva or scleral icterus Neck no lymphadenopathy, supple and no JVD Resp normal respiratory effort and clear to auscultation bilaterally Cardio regular rate, regular rhythm, S1 normal heart sound, S2 normal heart sound and no murmurs Rate: Negative for bradycardia or tachycardic Rhythm: Negative for abnormal rhythm GI non-tender, non-distended and no masses Inspection: Negative for abdominal distention Auscultation: normoactive bowel sounds Palpation: soft, tender and guarding Back/Spine no CVA (more content not included)... Normal [facility] Ketones Test strip Ql (U)Ord ered By: Freddy Batres on 07-15-2025 Ketones Ql (U) Negative Negative [facility] Microscopic analysis of urin e for red blood cells (RBC)Ordered By: Freddy Batres on 07-15-2025 Microscopic analysis of urine for red blood cells (RBC) 0 SEEN /hpf 0-5 [facility] Mucus LM Ql (Urine sed)Order ed By: Freddy Batres on 07-15-2025 Mucus Ql (Urine sed) 0 SEEN /hpf [facility] Nitrite Test strip Ql (U)Ord ered By: Freddy Batres on 07-15-2025 Nitrite Ql (U) Negative Negative [facility] Protein Test strip Ql (U)Ord ered By: Freddy Batres on 07-15-2025 Protein Ql (U) 15 mg/dl High Negative [facility] Squamous epithelial cells de tection in urine sediment by light microscopyOrdered By: Freddy Batres on 07-15-2025 Epithelial cells.squamous LM Ql (Urine sed) 0 SEEN /hpf 0-5 [facility] Testicular with Arterial Jose won 07-15-2025 Testicular with Arterial Flow [facility] Imaging Services [address] [place], [place] [address] Testicular with Arterial Flow MR#: [id number] Acct: [id number] Name: JOSAFAT ALVARENGA Rep #: [id number] : 1985 M 40 From: Kameron Cervantes MD PCP: Care Physician,No Primary Status: PRE ER Study: Testicular with Arterial Flow Date of Exam: Exam# [id number] Ordering Dr: Corky Coleman MD PROCEDURE: US TESTICULAR WITH ARTERIAL FLOW 07/15/2025 REASON FOR EXAM: Right testicular pain sudden onset during intercourse TECHNIQUE: Procedure Code: USTES Modality: US Procedure: TESTICULAR WITH ARTERIAL FLOW COMPARISON: None available. FINDINGS: Bilateral testes and epididymi have a normal symmetric sonographic appearance. Homogeneous parenchymal echotexture. Blood flow is demonstrated bilaterally on color Doppler, which appears symmetric. No evidence for torsion or epididymo-orchitis. There is a nonspecific single focus of microcalcification within the left testicle. Right testicle measures 5.1 x 3.1 x 2.2 cm. Left testicle measures 5.3 x 2.9 x 2.3 cm. There are trace bilateral nonspecific hydroceles with granular debris. No evidence of varicocele on either side. US/Testicular with Arterial Flow IMPRESSION: Trace nonspecific bilateral hydroceles with granular debris. Otherwise, normal symmetric sonographic appearance of the testes and epididymi. No evidence of torsion or epididymo-orchitis. Reading Location: [id number] CC: Dr. Corky Coleman MD; No Primary Care Physician Academic Advisement Director: Signed Normal [facility] Urinalysis, Completeon 07-15 BACTERIA 0 SEEN Normal None Seen [facility] Comment on above: Order Comment: CLEAN CATCH Performed By: #### L 400.0001 ####[facility] [address] [place], [address] EPI,SQUAMOUS 0 SEEN Normal 0-5 [facility] Comment on above: Order Comment: CLEAN CATCH Performed By: #### L 400.0001 ####[facility] [address] [place], [address] Mucus Ql (Urine sed) [address] [facility] Comment on above: Order Comment: CLEAN CATCH Performed By: #### L 400.0001 ####[facility] [address] [place], [address] RBC 0 SEEN Normal [address] [place] [address] Comment on above: Order Comment: CLEAN CATCH Performed By: #### L 400.0001 ####[facility] [address] [place], [address] WBC 0 SEEN Normal [address] [place] [address] Comment on above: Order Comment: CLEAN CATCH Performed By: #### L 400.0001 ####[facility] [address] [place], [address] Urine clarityOrdered By: Junaid Batres on 07-15-2025 Clarity (U) Clear Clear [facility] Urine color determinationOrd ered By: Freddy Batres on 07-15-2025 Color (U) Yellow Yellow [facility] Urine glucose detectionOrder ed By: Freddy Batres on 07-15-2025 Glucose Ql (U) Normal mg/dl Normal [facility] Urine leukocyte esterase det ection by dipstickOrdered By: Freddy Batres on 07-15-2025 Leukocyte esterase Test strip Ql (U) Negative Negative [facility] Urine pHOrdered By: Freddy olsen on 07-15-2025 pH (U) 7.0 [pH] 5.0 - 8.0 [facility] Urine sediment bacteria coun t by microscopy (number/high power field)Ordered By: Freddy Batres on 07-15-2025 Bacteria LM.HPF (Urine sed) [#/Area] 0 /[HPF] None Seen [facility] Urine specific gravity measu rementOrdered By: Freddy Batres on 07-15-2025 Specific gravity (U) [Rel density] 1.010 1.002-1.030 [facility] Urine urobilinogen measureme ntOrdered By: Freddy Batres on 07-15-2025 Urobilinogen Ql (U) Normal mg/dl Normal [facility] White blood cell countOrdere d By: Freddy Batres on 07-15-2025 White blood cell count 0 SEEN /hpf 0-5 [facility] XR WRIST MINIMUM 3 VIEWS LEF Ton 07-15-2025 XR WRIST MINIMUM 3 VIEWS LEFT ORIGINAL EXAMINATION: THREE XRAY VIEWS OF THE LEFT WRIST07/15/2025 7:22 pm COMPARISON: None HISTORY: ORDERING SYSTEM PROVIDED HISTORY: Reason for Exam: fall, FINDINGS: No acute fracture or dislocation. Likely bone island in distal radius.. No radiopaque foreign body. Nonspecific soft tissue swelling and wrist. IMPRESSION: No acute fracture or dislocation. I have personally reviewed the images of this examination and agree with the resident's findings and interpretation. Interpreted by: Malik Winters Preliminary Report By: Camilo Carlisle Electronically signed By Malik Winters Dictated Date: 07/15/2025 7:27:21 PM Prelim Date: 07/15/2025 7:28:27 PM Sign Date: 07/15/2025 7:40:03 PM Ordering Provider: JARVIS Suazo [facility] Emergency Department Summary on 07-08-2025 Emergency Department Summary [facility] Medical Records Department [address] [place] [address] Emergency Department Summary 07/08/25 MR#: [id number] Acct: [id number] Name: JOSAFAT ALVARENGA Rep #: [id number] : 1985 40 From: Gary Nair DO PCP: Care Physician,No Primary Status:DEP ER Location: ED HPI History of Present Illness Chief Complaint: Upper Extremity Injury [facility] Medical History (Updated 05/09/25 @ 00:00 by Background Daemon) Paranoid schizophrenia Foreign body in throat History of intravenous drug abuse Erectile dysfunction Hepatitis C Marijuana smoker Home Medications ???Medication ???Instructions ???Recorded ???Last Taken ???Type albuterol sulfate 90 mcg/actuation 2 puff inhalation Q4H PRN PRN Unknown History aerosol inhaler shortness of breath or wheezing paliperidone palmitate 234 mg/1.5 234 mg IM Q30D 03/12/25 Unknown H istory mL intramuscular syringe (Invega Sustenna) polyethylene glycol 3350 17 17 g PO DAILY #119 grams 05/01/25 Unknown Rx gram/dose oral powder (Miralax) Allergy/AdvReac Type Severity Reaction Status Date / Time latex Allergy Mild Rash Verified 07/08/25 20:42 cyclobenzaprine HCl (From Allergy Angioedema Verified 07/08/25 20:42 Flexeril) Social History Smoking Status: Current every day smoker tobacco type: cigarettes EXAM Physical Exam Const Vital Signs: 07/08/25 20:40 Temperature 98.2 F Temperature Source Temporal Pulse Rate 87 Respiratory Rate 18 Blood Pressure 132/91 H Blood Pressure Mean 104 Pulse Ox 100 Oxygen Delivery Method Room Air [facility] Narrative Medical decision making narrative: HISTORY OF PRESENT ILLNESS: Chief complaint: Left wrist pain 40-year-old male history of schizophrenia, polysubstance abuse, asthma presents with left wrist pain. States he was trying to pull apart 2 dogs were fighting. He noted pain in his left wrist REVIEW OF SYSTEMS: Pertinent positives: Left wrist pain Pertinent negatives: As per HPI PHYSICAL EXAM: Nursing triage notes reviewed, Vital signs reviewed Constitutional: please see mdm Extremities: No edema, no snuffbox tenderness no obvious deformities. Intact range of motion. Left upper extremity warm well-perfused intact radial pulses bilaterally. Neuro: Intact 5/5 strength with ok sign (median), intact finger abduction (ulnar) intact wrist extension (radial n). Intact sensation in the radial, ulnar, and median nerve distributions. Skin: No rash or lesions noted, no sign of open fractures, lacerations MEDICAL DECISION MAKING: Chief Complaint: please see HPI External records reviewed: Reviewed prior imaging studies Factors affecting care: As per HPI Social determinants of health: Polysubstance abuse, to health disorder MDM Narrative: The patient was initially hemodynamically stable, afebrile and nontoxic-appearing. Exam without obvious neurovascular compromise of the involved extremity. X-ray was placed per triage orders secondary to poor departmental dynamics including hide volume and high acuity. Wrist x-ray was read, interpreted, and reviewed personally by myself. Wrist x-ray showed no evidence of obvious bony abnormality, no acute fractures or dislocations. Given negative x-ray the patient is likely suffering from a wrist sprain. Will give wrist splint, RICE instructions, PCP follow-up. The patient and/or family, caregivers express understanding. The patient and/or family, caregivers agrees with the plan. Shared decision making: I will have a discussion with the patient and or visitors regarding risk/benefits of further testing or admission. They will be made aware of of the risk/benefits inherent in this decision they will be given the opportunity to voice understanding. Total critical care time today provided was at least 0 minutes. This excludes separately billable procedures. Critical care time (if documented) is secondary to the patient having high probability of clinically significant/life threatening deterioration in the patient's condition which required my urgent intervention. Impression: 1. Acute left wrist pain 2. Wrist sprain Dispo: Discharge home This note was generated with Clik[employer] dictation software. It may contain incorrect words, spelling, and punctuation that were not noted in review of the chart prior to signing. Radiography Diagnostic Testing: Clinical Impression(s) from Imaging Studies Wrist X-Ray 07/08/25 20:48 IMPRESSION: No acute fracture or dislocation. Reading Location: [facility] Discharge Plan Triage Chief Complaint: Upper Extremity Injury ED Provider: Dena Nair (more content not included)... Normal [facility] Wrist min 3 Viewson 07-08-20 25 Wrist min 3 Views [facility] Imaging Services [address] [place] [address] Wrist min 3 Views MR#: [id number] Acct: [id number] Name: JOSAFAT ALVARENGA Rep #: [id number] : 1985 M 40 From: Kameron Cervantes MD PCP: Care Physician,No Primary Status: PRE ER Study: Wrist min 3 Views Date of Exam: 07/08/25 Exam# [id number] Ordering Dr: Ivan Cotton P. PROCEDURE: LEFT WRIST MIN 3 VIEWS 07/08/2025 REASON FOR EXAM: TRAUMA TECHNIQUE: LEFT WRIST MIN 3 VIEWS COMPARISON: None. FINDINGS: No acute fracture or dislocation. Alignment is anatomic. Preserved joint spaces. No aggressive osseous lesion. No marked soft tissue swelling or radiopaque foreign body. RAD/Wrist min 3 Views IMPRESSION: No acute fracture or dislocation. Reading Location: [id number] CC: ED PHYSICIAN PROVIDER; No Primary Care Physician Academic Advisement Director: Signed Normal [facility] Absolute lymphocyte countOrd ered By: Ramo Heck on 05-01-2025 Lymphocytes Auto (Unsp spec) [#/Vol] 1.62 10*3/uL 0.83-4.51 [facility] Absolute neutrophil countOrd ered By: Ramo Heck on 05-01-2025 Neutrophils (Bld) [#/Vol] 6.4 10*3/uL 2.0-7.7 [facility] Acute Abdomen Inc Cheston Acute Abdomen Inc Chest [facility] Imaging Services [address] [place] [address] Acute Abdomen Inc Chest MR#: [id number] Acct: [id number] Name: JOSAFAT ALVARENGA Rep #: [id number] : 1985 M 39 From: Leeroy Carrasco MD PCP: Care Physician,No Primary Status: PRE ER Study: Acute Abdomen Inc Chest Date of Exam: 05/01/25 Exam# [id number] Ordering Dr: Ramo Heck DO EXAM: XR Abdomen, 2 Views and XR Chest, 1 View CLINICAL INDICATION: PAIN TECHNIQUE: Frontal view of the chest, frontal view of the abdomen/pelvis and upright or decubitus view of the abdomen. COMPARISON: No relevant prior studies available. FINDINGS: LUNGS AND PLEURAL SPACES: Unremarkable. No consolidation. No pneumothorax. HEART: Unremarkable. No cardiomegaly. MEDIASTINUM: Unremarkable. Normal mediastinal contour. INTRAPERITONEAL SPACE: No free air. GASTROINTESTINAL TRACT: Fecal retention in the colon consistent with constipation. No dilation. BONES/JOINTS: Unremarkable. No acute fracture. RAD/Acute Abdomen Inc Chest IMPRESSION: Fecal retention in the colon consistent with constipation. Reading Location: [id number] CC: Dr. Ramo Heck, DO; No Primary Care Physician Academic Advisement Director: Signed Normal [facility] Anion gap in Serum or Plasma Ordered By: Ramo Heck on 05-01-2025 Anion gap [Moles/Vol] 11 mmol/L 5-15 [facility] Automated lymphocyte count a s percentage of total leukocytesOrdered By: Ramo Heck on 05-01-2025 Lymphocytes/100 WBC Auto (Unsp spec) 17.9 % Low 19-41 [facility] BUN/creatinine ratioOrdered By: Ramo Heck on 05-01-2025 Urea nitrogen/Creatinine [Mass ratio] 4.1 mg/mg Low - [facility] Basic Metabolic Profile (BMP )on 05-01-2025 BUN/CRE 4.1 RATIO Low - [facility] Comment on above: Performed By: #### L 100.0100, L500.2500 #### [facility] [address] [place], [address] Calcium [Mass/Vol] 8.9 mg/dL Normal 7.6-11.0 [facility] Comment on above: Performed By: #### L 100.0100, L500.2500 #### [facility] [address] [place], [address] Chloride [Moles/Vol] 103 mmol/L Normal 98-[address] [facility] Comment on above: Performed By: #### L 100.0100, L500.2500 #### [facility] [address] [place], [address] CO2 [Moles/Vol] 23.5 mmol/L Normal 21.0-32.0 [facility] Comment on above: Performed By: #### L 100.0100, L500.2500 #### [facility] [address] [place], [address] Creatinine [Mass/Vol] 0.89 mg/dL Normal 0.70-1.20 [facility] Comment on above: Performed By: #### L 100.0100, L500.2500 #### [facility] [address] [place], [address] ECRCL 110.96 ml/min Normal 50-250 [facility] Comment on above: Performed By: #### L 100.0100, L500.2500 #### [facility] [address] [place], [address] GAP 11 Normal 5-15 [facility] Comment on above: Performed By: #### L 100.0100, L500.2500 #### [facility] [address] [place], [address] GFR/1.73 sq M.predicted among non-blacks MDRD (S/P/Bld) [Vol rate/Area] 110 mL/min/{1.73_m2} Normal >60 [facility] Comment on above: Result Comment: mL/m in/1.73m2 CKD-EPI Creatinine Equation (2020) Performed By: #### L 100.0100, L500.2500 #### [facility] [address] [place], [address] Glucose [Mass/Vol] 121 mg/dL High 70-99 [facility] Comment on above: Performed By: #### L 100.0100, L500.2500 #### [facility] [address] [place], [address] Potassium [Moles/Vol] 3.5 mmol/L Normal 3.3-5.1 [facility] Comment on above: Performed By: #### L 100.0100, L500.2500 #### [facility] [address] [place], [address] Sodium [Moles/Vol] 138 mmol/L Normal 133-145 [facility] Comment on above: Performed By: #### L 100.0100, L500.2500 #### [facility] [address] [place], [address] Urea nitrogen [Mass/Vol] 4 mg/dL Normal 4-19 [facility] Comment on above: Performed By: #### L 100.0100, L500.2500 #### [facility] [address] [place], [address] Basophil percentageOrdered B y: Ramo Heck on 05-01-2025 Basophils/100 WBC (Bld) 0.7 % 0-1 [facility] CBC W/Diff, Automatedon 04-13-2024 Absolute Lymph 1.62 X10 3/uL Normal 0.83-4.51 [facility] Comment on above: Performed By: #### L 100.0100, L500.2500 #### [facility] [address] [place], [address] Absolute Neut 6.4 X10 3/uL Normal 2.0-7.7 [facility] Comment on above: Performed By: #### L 100.0100, L500.2500 #### [facility] [address] [place], [address] Basophils/100 WBC (Bld) 0.7 % Normal 0-1 [facility] Comment on above: Performed By: #### L 100.0100, L500.2500 #### [facility] [address] [place], [address] Eosinophils/100 WBC (Bld) 5.5 % High 0-5 [facility] Comment on above: Performed By: #### L 100.0100, L500.2500 #### [facility] [address] [place], [address] Erythrocyte distribution width (RBC) [Ratio] 12.3 % Normal 11.6-14.6 [facility] Comment on above: Performed By: #### L 100.0100, L500.2500 #### [facility] [address] [place], [address] Hematocrit (Bld) [Volume fraction] 44.3 % Normal 40-54 [facility] Comment on above: Performed By: #### L 100.0100, L500.2500 #### [facility] [address] [place], [address] Hemoglobin (Bld) [Mass/Vol] 15.6 g/dL Normal 13.0-16.5 [facility] Comment on above: Performed By: #### L 100.0100, L500.2500 #### [facility] [address] [place], [address] IG% 0.300 Normal 0.0-0.9 [facility] Comment on above: Result Comment: IG% - Immature Granulocytes (promyelocytes, myelocytes and metamyelocytes) > 1% indicates that a LEFT SHIFT is Present. Performed By: #### L 100.0100, L500.2500 #### [facility] [address] [place], [address] Lymphocytes/100 WBC (Bld) 17.9 % Low 19-41 [facility] Comment on above: Performed By: #### L 100.0100, L500.2500 #### [facility] [address] [place], [address] MCH (RBC) [Entitic mass] 31.6 pg Normal 27.0-32.0 [facility] Comment on above: Performed By: #### L 100.0100, L500.2500 #### [facility] [address] [place], [address] MCHC (RBC) [Mass/Vol] 35.2 g/dL Normal 32-36 [facility] Comment on above: Performed By: #### L 100.0100, L500.2500 #### [facility] [address] [place], [address] MCV (RBC) [Entitic vol] 89.9 fL Normal 80-94 [facility] Comment on above: Performed By: #### L 100.0100, L500.2500 #### [facility] [address] [place], [address] Monocytes/100 WBC (Bld) 5.5 % Normal 0-10 [facility] Comment on above: Performed By: #### L 100.0100, L500.2500 #### [facility] [address] [place], [address] Neutrophils/100 WBC (Bld) 70.1 % High 47-70 [facility] Comment on above: Performed By: #### L 100.0100, L500.2500 #### [facility] [address] [place], [address] Nucleated RBC (Bld) [#/Vol] 0 10*3/uL Normal 0-5 [facility] Comment on above: Performed By: #### L 100.0100, L500.2500 #### [facility] [address] [place], [address] Platelet mean volume (Bld) [Entitic vol] 9.6 fL Normal 6.2-12.0 [facility] Comment on above: Performed By: #### L 100.0100, L500.2500 #### [facility] [address] [place], [address] Platelets (Bld) [#/Vol] 253 10*3/uL Normal 150-450 [facility] Comment on above: Performed By: #### L 100.0100, L500.2500 #### [facility] [address] [place], [address] RBC (Bld) [#/Vol] 4.93 10*6/uL Normal 4.6-6.2 [facility] Comment on above: Performed By: #### L 100.0100, L500.2500 #### [facility] [address] [place], [address] RDW SD 40.8 fl Normal 35.1-43.9 [facility] Comment on above: Performed By: #### L 100.0100, L500.2500 #### [facility] [address] [place], [address] WBC (Bld) [#/Vol] 9.1 10*3/uL Normal 4.4-11.0 [facility] Comment on above: Performed By: #### L 100.0100, L500.2500 #### [facility] [address] [place], [address] Carbon dioxide, total [Moles /volume] in Central venous bloodOrdered By: Ramo Heck on 05-01-2025 CO2 [Moles/Vol] 23.5 mmol/L 21.0-32.0 [facility] Chloride assayOrdered By: Meng Heck on 05-01-2025 Chloride [Moles/Vol] 103 mmol/L 98-[address] [facility] Emergency Department Summary on 05-01-2025 Emergency Department Summary [facility] Medical Records Department [address] [place] [address] Emergency Department Summary 05/01/25 MR#: [id number] Acct: [id number] Name: JOSAFAT ALVARENGA Rep #: [id number] : 1985 39 From: Ramo Heck DO PCP: Care Physician,No Primary Status:DEP ER Location: ED HPI HPI - GI History of Present Illness Chief Complaint: Constipation Abdominal Pain/Flank Pain Onset: Days (4) Context: Gradual Onset Timing: Continuous Quality: - (Pounding) Location: Diffuse Worsened by: - (Drinking) Relieved by: Nothing Nausea/Vomiting/Emesis GI Symptom: Negative for Nausea or Vomiting Diarrhea/Melena/Hematoc hezia GI Symptom: Negative for Diarrhea, Melena or Hematochezia Associated Symptoms Associated Symptoms: Negative for Dysuria, Frequency or Hematuria Narrative Narrative: Patient presents with constipation that has been constant for the past 4 days. Patient states he has diffuse pain across his abdomen. Patient states his pain is worse when he tries to drink anything. Patient states nothing makes it better. Patient states he has not tried any dbuf-dat-rdkydap laxatives. Patient denies any nausea or vomiting. Patient denies any fevers or chills. Patient denies any neck pain but admits to some lower back pain. Patient denies any dysuria, frequency, or hematuria. [facility] Medical History (Updated 05/01/25 @ 21:[address] Ramo Heck, ) Paranoid schizophrenia Foreign body in throat History of intravenous drug abuse Erectile dysfunction Hepatitis C Marijuana smoker Home Medications ???Medication ???Instructions ???Recorded ???Last Taken ???Type albuterol sulfate 90 mcg/actuation 2 puff inhalation Q4H PRN PRN Unknown History aerosol inhaler shortness of breath or wheezing paliperidone palmitate 234 mg/1.5 234 mg IM Q30D 03/12/25 Unknown H istory mL intramuscular syringe (Invega Sustenna) polyethylene glycol 3350 17 17 g PO DAILY #119 grams 05/01/25 Unknown Rx gram/dose oral powder (Miralax) Allergy/AdvReac Type Severity Reaction Status Date / Time latex Allergy Mild Rash Verified 05/01/25 19:25 cyclobenzaprine HCl (From Allergy Angioedema Verified 05/01/25 19:25 Flexeril) Surgical History no surgical history no surgical history Social History Smoking Status: Current every day smoker tobacco type: cigarettes ROS ROS ED Constitutional Constitutional ED: Reports chills; Denies fever(s) Eyes Eyes: Denies blurry vision or change in vision ENT ENT ED: Denies rhinorrhea or sore throat Cardiovascular Cardiovascular: Denies chest pain or palpitations Respiratory/Chest Respiratory/Chest: Reports cough; Denies dyspnea Gastrointestinal Gastrointestinal: Reports abdominal pain and constipation; Denies nausea or vomiting Genitourinary Genitourinary ED: Denies dysuria or hematuria Musculoskeletal Musculoskeletal: Reports back pain; Denies neck pain Integumentary Denies abscess or rash Neurologic Neurologic: Denies headache(s) or weakness Allergic/Immunologic Allergic/Immunologic ED: Denies mouth swelling or urticaria EXAM Physical Exam Const Vital Signs: 05/01/25 19:26 05/01/25 21:25 Temperature 97.6 F L Temperature Source Temporal Pulse Rate 114 H 92 Respiratory Rate 18 16 Blood Pressure 156/94 H 130/74 H Blood Pressure Mean 114 92 Pulse Ox 98 97 Oxygen Delivery Method Room Air Positive well nourished and well developed General Appearance ED: well developed and NAD HEENT Reports moist mucous membranes Neck supple and no JVD Resp normal respiratory effort and clear to auscultation bilaterally Cardio regular rate and regular rhythm GI non-distended Palpation: soft and tender LLQ, RLQ, periumbilical and suprapubic; Negative for guarding or rebound tenderness present Extremity full ROM General Extremety ED: Negative for edema or tenderness General Extremity: Negative for edema Neuro CN's II-XII intact bilaterally, moves all extremities and no sensory deficits noted Sensorium / Orientation: alert Motor Exam: strength 5/5 throughout Psych mental status grossly normal MDM MDM MDM Narrative Medical decision making narrative: Differential diagnosis includes bowel obstruction, perforation, constipation, dehydration, and electrolyte abnormality. Acute abdominal x-rays will be obtained to assess for bowel obstruction, perforation, and constipation. CBC will be obtained to assess for leukocytosis and pneumonia. Basic metabolic profile indicated obtained to assess for electrolyte abnormality and renal function. Lab Data Attestation: I reviewed the patient's lab results. Lab results narrative: CBC was reviewed and was within normal limits. Basic metabo (more content not included)... Normal [facility] Eosinophil percentageOrdered By: Ramo Heck on 05-01-2025 Eosinophils/100 WBC (Bld) 5.5 % High 0-5 [facility] Erythrocyte distribution wid th ratioOrdered By: Ramo Heck on 05-01-2025 Erythrocyte distribution width (RBC) [Ratio] 12.3 % 11.6-14.6 [facility] Erythrocyte distribution wid th standard deviationOrdered By: Ramo Heck on 05-01-2025 Erythrocyte distribution width (RBC) [Ratio] 40.8 fl 35.1-43.9 [facility] Glomerular filtration rate ( GFR) estimation/1.73 sq m using serum, plasma, or whole bOrdered By: Ramo Heck on 05-01-2025 GFR/1.73 sq M.predicted among non-blacks MDRD (S/P/Bld) [Vol rate/Area] 110 mL/min/{1.73_m2} >60 [facility] Comment on above: mL/min/1.73m2 CKD-EP I Creatinine Equation (2020) Hematocrit Auto (Bld) [Volum e fraction]Ordered By: Ramo Heck on 05-01-2025 Hematocrit (Bld) [Volume fraction] 44.3 % 40-54 [facility] Hemoglobin measurementOrdere d By: Ramo Heck on 05-01-2025 Hemoglobin (Bld) [Mass/Vol] 15.6 g/dL 13.0-16.5 [facility] Immature granulocytes/100 WB C Auto (Bld)Ordered By: Ramo Heck on 05-01-2025 Immature granulocytes/100 WBC (Bld) 0.300 % 0.0-0.9 [facility] Comment on above: IG% - Immature Granu locytes (promyelocytes, myelocytes and metamyelocytes) > 1% indicates that a LEFT SHIFT is Present. MCV (mean corpuscular volume ) determinationOrdered By: Ramo Heck on 05-01-2025 MCV (RBC) [Entitic vol] 89.9 fL 80-94 [facility] Mean corpuscular hemoglobin (MCH) determinationOrdered By: Ramo Heck on 05-01-2025 MCH (RBC) [Entitic mass] 31.6 pg 27.0-32.0 [facility] Mean corpuscular hemoglobin concentration (MCHC) determinationOrdered By: Ramo Heck on 05-01-2025 MCHC (RBC) [Mass/Vol] 35.2 g/dL 32-36 [facility] Mean platelet volume determi nationOrdered By: Ramo Heck on 05-01-2025 Platelet mean volume (Bld) [Entitic vol] 9.6 fL 6.2-12.0 [facility] Monocyte percentageOrdered B y: Ramo Heck on 05-01-2025 Monocytes/100 WBC (Bld) 5.5 % 0-10 [facility] Neutrophil percentageOrdered By: Ramo Heck on 05-01-2025 Neutrophils/100 WBC (Bld) 70.1 % High 47-70 [facility] Nucleated red blood cell per centageOrdered By: Ramo Heck on 05-01-2025 Nucleated RBC/100 WBC (Bld) [Ratio] 0 % 0-5 [facility] Platelet countOrdered By: Meng Heck on 05-01-2025 Platelets (Bld) [#/Vol] 253 10*3/uL 150-450 [facility] Potassium measurement (mass/ volume)Ordered By: Ramo Heck on 05-01-2025 Potassium (Unsp spec) [Mass/Vol] 3.5 mmol/L 3.3-5.1 [facility] RBC Auto (Bld) [#/Vol]Ordere d By: Ramo Heck on 05-01-2025 RBC (Bld) [#/Vol] 4.93 10*6/uL 4.6-6.2 [facility] Serum creatinine measurement (mass/volume)Ordered By: Ramo Heck on 05-01-2025 Creatinine [Mass/Vol] 0.89 mg/dL 0.70-1.20 [facility] Serum glucose measurement (m ass/volume)Ordered By: Ramo Heck on 05-01-2025 Glucose [Mass/Vol] 121 mg/dL High 70-99 [facility] Serum or plasma calcium roddy urement (mass/volume)Ordered By: Ramo Heck on 05-01-2025 Calcium [Mass/Vol] 8.9 mg/dL 7.6-11.0 [facility] Serum or plasma urea nitroge n measurement (mass/volume)Ordered By: Ramo Heck on 05-01-2025 Urea nitrogen [Mass/Vol] 4 mg/dL 4-19 [facility] Sodium levelOrdered By: Ramo Heck on 05-01-2025 Sodium [Moles/Vol] 138 mmol/L 133-145 [facility] White blood cell (WBC) count Ordered By: Ramo Heck on 05-01-2025 WBC (Bld) [#/Vol] 9.1 10*3/uL 4.4-11.0 [facility] Absolute lymphocyte countOrd ered By: Gildardo Rubio on 03-12-2025 Lymphocytes Auto (Unsp spec) [#/Vol] 2.55 10*3/uL 0.83-4.51 [facility] Absolute neutrophil countOrd ered By: Gildardo Rubio on 03-12-2025 Neutrophils (Bld) [#/Vol] 6.1 10*3/uL 2.0-7.7 [facility] Anion gap in Serum or Plasma Ordered By: Gildardo Rubio on 03-12-2025 Anion gap [Moles/Vol] 13 mmol/L 5-15 [facility] Automated lymphocyte count a s percentage of total leukocytesOrdered By: Gildardo Rubio on 03-12-2025 Lymphocytes/100 WBC Auto (Unsp spec) 24.8 % -41 [facility] BUN/creatinine ratioOrdered By: Gildardo Rubio on 03-12-2025 Urea nitrogen/Creatinine [Mass ratio] 5.2 mg/mg Low - [facility] Basic Metabolic Profile (BMP )on 03-12-2025 BUN/CRE 5.2 RATIO Low 10- [facility] Comment on above: Performed By: #### L 500.2500, L100.0100 ####[facility] [address] [place], [address] Calcium [Mass/Vol] 9.2 mg/dL Normal 7.6-11.0 [facility] Comment on above: Performed By: #### L 500.2500, L100.0100 ####[facility] [address] [place], [address] Chloride [Moles/Vol] 101 mmol/L Normal 98-[address] [facility] Comment on above: Performed By: #### L 500.2500, L100.0100 ####[facility] [address] [place], [address] CO2 [Moles/Vol] 23.5 mmol/L Normal 21.0-32.0 [facility] Comment on above: Performed By: #### L 500.2500, L100.0100 ####[facility] [address] [place], [address] Creatinine [Mass/Vol] 1.00 mg/dL Normal 0.70-1.20 [facility] Comment on above: Performed By: #### L 500.2500, L100.0100 ####[facility] [address] [place], [address] ECRCL 100.02 ml/min Normal 50-250 [facility] Comment on above: Performed By: #### L 500.2500, L100.0100 ####[facility] [address] [place], [address] GAP 13 Normal 5-15 [facility] Comment on above: Performed By: #### L 500.2500, L100.0100 ####[facility] [address] [place], [address] GFR/1.73 sq M.predicted among non-blacks MDRD (S/P/Bld) [Vol rate/Area] 97 mL/min/{1.73_m2} Normal >60 [facility] Comment on above: Result Comment: mL/m in/1.73m2 CKD-EPI Creatinine Equation (2020) Performed By: #### L 500.2500, L100.0100 ####[facility] [address] [place], [address] Glucose [Mass/Vol] 123 mg/dL High 70-99 [facility] Comment on above: Performed By: #### L 500.2500, L100.0100 ####[facility] [address] [place], [address] Potassium [Moles/Vol] 3.0 mmol/L Low 3.3-5.1 [facility] Comment on above: Performed By: #### L 500.2500, L100.0100 ####[facility] [address] [place], [address] Sodium [Moles/Vol] 137 mmol/L Normal 133-145 [facility] Comment on above: Performed By: #### L 500.2500, L100.0100 ####[facility] [address] [place], [address] Urea nitrogen [Mass/Vol] 5 mg/dL Normal 4-19 [facility] Comment on above: Performed By: #### L 500.2500, L100.0100 ####[facility] [address] [place], [address] Basophil percentageOrdered B y: Gildardo Rubio on 03-12-2024 Basophils/100 WBC (Bld) 1.0 % 0-1 [facility] CBC W/Diff, Automatedon Absolute Lymph 2.55 X10 3/uL Normal 0.83-4.51 [facility] Comment on above: Performed By: #### L 500.2500, L100.0100 #### [facility] [address] [place], [address] Absolute Neut 6.1 X10 3/uL Normal 2.0-7.7 [facility] Comment on above: Performed By: #### L 500.2500, L100.0100 #### [facility] [address] [place], [address] Basophils/100 WBC (Bld) 1.0 % Normal 0-1 [facility] Comment on above: Performed By: #### L 500.2500, L100.0100 #### [facility] [address] [place], [address] Eosinophils/100 WBC (Bld) 8.5 % High 0-5 [facility] Comment on above: Performed By: #### L 500.2500, L100.0100 #### [facility] [address] [place], [address] Erythrocyte distribution width (RBC) [Ratio] 12.7 % Normal 11.6-14.6 [facility] Comment on above: Performed By: #### L 500.2500, L100.0100 #### [facility] [address] [place], [address] Hematocrit (Bld) [Volume fraction] 42.5 % Normal 40-54 [facility] Comment on above: Performed By: #### L 500.2500, L100.0100 #### [facility] [address] [place], [address] Hemoglobin (Bld) [Mass/Vol] 15.4 g/dL Normal 13.0-16.5 [facility] Comment on above: Performed By: #### L 500.2500, L100.0100 #### [facility] [address] [place], [address] IG% 0.400 Normal 0.0-0.9 [facility] Comment on above: Result Comment: IG% - Immature Granulocytes (promyelocytes, myelocytes and metamyelocytes) > 1% indicates that a LEFT SHIFT is Present. Performed By: #### L 500.2500, L100.0100 #### [facility] [address] [place], [address] Lymphocytes/100 WBC (Bld) 24.8 % Normal 19-41 [facility] Comment on above: Performed By: #### L 500.2500, L100.0100 #### [facility] [address] [place], [address] MCH (RBC) [Entitic mass] 31.4 pg Normal 27.0-32.0 [facility] Comment on above: Performed By: #### L 500.2500, L100.0100 #### [facility] [address] [place], [address] MCHC (RBC) [Mass/Vol] 36.2 g/dL High 32-36 [facility] Comment on above: Performed By: #### L 500.2500, L100.0100 #### [facility] [address] [place], [address] MCV (RBC) [Entitic vol] 86.7 fL Normal 80-94 [facility] Comment on above: Performed By: #### L 500.2500, L100.0100 #### [facility] [address] [place], [address] Monocytes/100 WBC (Bld) 6.5 % Normal 0-10 [facility] Comment on above: Performed By: #### L 500.2500, L100.0100 #### [facility] [address] [place], [address] Neutrophils/100 WBC (Bld) 58.8 % Normal 47-70 [facility] Comment on above: Performed By: #### L 500.2500, L100.0100 #### [facility] [address] [place], [address] Nucleated RBC (Bld) [#/Vol] 0 10*3/uL Normal 0-5 [facility] Comment on above: Performed By: #### L 500.2500, L100.0100 #### [facility] [address] [place], [address] Platelet mean volume (Bld) [Entitic vol] 9.0 fL Normal 6.2-12.0 [facility] Comment on above: Performed By: #### L 500.2500, L100.0100 #### [facility] [address] [place], [address] Platelets (Bld) [#/Vol] 311 10*3/uL Normal 150-450 [facility] Comment on above: Performed By: #### L 500.2500, L100.0100 #### [facility] [address] [place], [address] RBC (Bld) [#/Vol] 4.90 10*6/uL Normal 4.6-6.2 [facility] Comment on above: Performed By: #### L 500.2500, L100.0100 #### [facility] [address] [place], [address] RDW SD 39.8 fl Normal 35.1-43.9 [facility] Comment on above: Performed By: #### L 500.2500, L100.0100 #### [facility] [address] [place], [address] WBC (Bld) [#/Vol] 10.3 10*3/uL Normal 4.4-11.0 [facility] Comment on above: Performed By: #### L 500.2500, L100.0100 #### [facility] [address] [place], [address] Carbon dioxide, total [Moles /volume] in Central venous bloodOrdered By: Gildardo Rubio on 03-12-2025 CO2 [Moles/Vol] 23.5 mmol/L 21.0-32.0 [facility] Chloride assayOrdered By: Haritha Rubio on 03-12-2025 Chloride [Moles/Vol] 101 mmol/L 98-[address] [facility] Emergency Department Summary on 03-12-2025 Emergency Department Summary [facility] Medical Records Department [address] [facility] [place] [address] Emergency Department Summary 03/12/25 MR#: [id number] Acct: [id number] Name: JOSAFAT ALVARENGA Rep #: [id number] : 1985 39 From: Gildardo Rubio DO PCP: Care Physician,No Primary Status:REG ER Location: ED HPI History of Present [...] repeat esophageal obstruction he presents for evaluation [facility] Medical History Foreign body in throat History [...] scheduled to see a GI physician in [place] to discuss need for esophageal dilation. At [...] and wa (more content not included)... Normal [facility] Eosinophil percentageOrdered By: Gildardo Rubio on 03-12-2025 Eosinophils/100 WBC (Bld) 8.5 % High 0-5 [facility] Erythrocyte distribution wid th ratioOrdered By: Gildardo Rubio on 03-12-2025 Erythrocyte distribution width (RBC) [Ratio] 12.7 % 11.6-14.6 [facility] Erythrocyte distribution wid th standard deviationOrdered By: Gildardo Rubio on 03-12-2025 Erythrocyte distribution width (RBC) [Ratio] 39.8 fl 35.1-43.9 [facility] Glomerular filtration rate ( GFR) estimation/1.73 sq m using serum, plasma, or whole bOrdered By: Gildardo Rubio on 03-12-2025 GFR/1.73 sq M.predicted among non-blacks MDRD (S/P/Bld) [Vol rate/Area] 97 mL/min/{1.73_m2} >60 [facility] Comment on above: mL/min/1.73m2 CKD-EP I Creatinine Equation (2020) Hematocrit Auto (Bld) [Volum e fraction]Ordered By: Gildardo Rubio on 03-12-2025 Hematocrit (Bld) [Volume fraction] 42.5 % 40-54 [facility] Hemoglobin measurementOrdere d By: Gildardo Rubio on 03-12-2025 Hemoglobin (Bld) [Mass/Vol] 15.4 g/dL 13.0-16.5 [facility] Immature granulocytes/100 WB C Auto (Bld)Ordered By: Gildardo Rubio on 03-12-2025 Immature granulocytes/100 WBC (Bld) 0.400 % 0.0-0.9 [facility] Comment on above: IG% - Immature Granu locytes (promyelocytes, myelocytes and metamyelocytes) > 1% indicates that a LEFT SHIFT is Present. MCV (mean corpuscular volume ) determinationOrdered By: Gildardo Rubio on 03-12-2025 MCV (RBC) [Entitic vol] 86.7 fL 80-94 [facility] Mean corpuscular hemoglobin (MCH) determinationOrdered By: Gildardo Rubio on 03-12-2025 MCH (RBC) [Entitic mass] 31.4 pg 27.0-32.0 [facility] Mean corpuscular hemoglobin concentration (MCHC) determinationOrdered By: Gildardo Rubio on 03-12-2025 MCHC (RBC) [Mass/Vol] 36.2 g/dL High 32-36 [facility] Mean platelet volume determi nationOrdered By: Gildardo Rubio on 03-12-2025 Platelet mean volume (Bld) [Entitic vol] 9.0 fL 6.2-12.0 [facility] Monocyte percentageOrdered B y: Gildardo Rubio on 03-12-2025 Monocytes/100 WBC (Bld) 6.5 % 0-10 [facility] Neutrophil percentageOrdered By: Gildardo Rubio on 03-12-2025 Neutrophils/100 WBC (Bld) 58.8 % 47-70 [facility] Nucleated red blood cell per centageOrdered By: Gildardo Rubio on 03-12-2025 Nucleated RBC/100 WBC (Bld) [Ratio] 0 % 0-5 [facility] Platelet countOrdered By: Haritha Rubio on 03-12-2025 Platelets (Bld) [#/Vol] 311 10*3/uL 150-450 [facility] Potassium measurement (mass/ volume)Ordered By: Gildardo Rubio on 03-12-2025 Potassium (Unsp spec) [Mass/Vol] 3.0 mmol/L Low 3.3-5.1 [facility] RBC Auto (Bld) [#/Vol]Ordere d By: Gildardo Rubio on 03-12-2025 RBC (Bld) [#/Vol] 4.90 10*6/uL 4.6-6.2 [facility] Serum creatinine measurement (mass/volume)Ordered By: Gildardo Rubio on 03-12-2025 Creatinine [Mass/Vol] 1.00 mg/dL 0.70-1.20 [facility] Serum glucose measurement (m ass/volume)Ordered By: Gildardo Rubio on 03-12-2025 Glucose [Mass/Vol] 123 mg/dL High 70-99 [facility] Serum or plasma calcium roddy urement (mass/volume)Ordered By: Gildardo Rubio on 03-12-2025 Calcium [Mass/Vol] 9.2 mg/dL 7.6-11.0 [facility] Serum or plasma urea nitroge n measurement (mass/volume)Ordered By: Gildardo Rubio on 03-12-2025 Urea nitrogen [Mass/Vol] 5 mg/dL 4-19 [facility] Sodium levelOrdered By: Noah Rubio on 03-12-2025 Sodium [Moles/Vol] 137 mmol/L 133-145 [facility] White blood cell (WBC) count Ordered By: Gildardo Rubio on 03-12-2025 WBC (Bld) [#/Vol] 10.3 10*3/uL 4.4-11.0 [facility] .Auto Diffon 02-22-2025 Basophil, Absolute 0.1 10 3/mcL Normal 0.0-0.3 [facility] Comment on above: Performed By: #### A DIFF, GFR, LIPID, CBC, HFP, BMP, MG, ANEU #### [address] [address] Basophils/100 WBC (Bld) 1.0 % Normal 0.0-2.5 [facility] Comment on above: Performed By: #### A DIFF, GFR, LIPID, CBC, HFP, BMP, MG, ANEU #### [address] [address] Eosinophil, Absolute 0.8 10 3/mcL High 0.0-0.7 [facility] Comment on above: Performed By: #### A DIFF, GFR, LIPID, CBC, HFP, BMP, MG, ANEU #### [address] [address] Eosinophils/100 WBC (Bld) 11.1 % High 0.0-6.0 [facility] Comment on above: Performed By: #### A DIFF, GFR, LIPID, CBC, HFP, BMP, MG, ANEU #### [address] [address] Lymphocyte, Absolute 2.5 10 3/mcL Normal 0.9-4.3 [facility] Comment on above: Performed By: #### A DIFF, GFR, LIPID, CBC, HFP, BMP, MG, ANEU #### [address] [address] Lymphocytes/100 WBC (Bld) 34.8 % Normal 20.0-40.0 [facility] Comment on above: Performed By: #### A DIFF, GFR, LIPID, CBC, HFP, BMP, MG, ANEU #### [address] [address] Monocyte, Absolute 0.5 10 3/mcL Normal 0.1-1.4 [facility] Comment on above: Performed By: #### A DIFF, GFR, LIPID, CBC, HFP, BMP, MG, ANEU #### [address] [address] Monocytes/100 WBC (Bld) 7.3 % Normal 2.0-13.0 [facility] Comment on above: Performed By: #### A DIFF, GFR, LIPID, CBC, HFP, BMP, MG, ANEU #### [address] [address] Neutrophils/100 WBC (Bld) 45.8 % Low 50.0-75.0 [facility] Comment on above: Performed By: #### A DIFF, GFR, LIPID, CBC, HFP, BMP, MG, ANEU #### [address] [address] .GFRon 02-22-2025 Estimated Glomerular Filtration Rate 113 ml/min/1.73sqm Normal [facility] Comment on above: Result Comment: Stages [...] LIPID, CBC, HFP, BMP, MG, ANEU #### [address] [address] .NEUABSon 02-22-2025 Neutrophil, Absolute 3.3 10 3/mcL Normal 2.3-8.1 [facility] Comment on above: Performed By: #### A DIFF, GFR, LIPID, CBC, HFP, BMP, MG, ANEU #### [address] [address] BMPon 02-22-2025 BUN/Creatinine Ratio Unable to Calculate Normal 10.0-2 2.0 [facility] Comment on above: Result Comment: Unab le to calculate this test result accurately. Results used to calculate this test are outside the reportable range. Performed By: #### A DIFF, GFR, LIPID, CBC, HFP, BMP, MG, ANEU #### [address] [address] Urea nitrogen [Mass/Vol] mg/dL Low 8.0-22.0 [facility] Comment on above: Performed By: #### A DIFF, GFR, LIPID, CBC, HFP, BMP, MG, ANEU #### [address] [address] Calcium [Mass/Vol] 9.0 mg/dL Normal 8.7-10.4 [facility] Comment on above: Performed By: #### A DIFF, GFR, LIPID, CBC, HFP, BMP, MG, ANEU #### [address] [address] Chloride [Moles/Vol] 108 mmol/L Normal 98-110 [facility] Comment on above: Performed By: #### A DIFF, GFR, LIPID, CBC, HFP, BMP, MG, ANEU #### [address] [address] CO2 [Moles/Vol] 30 mmol/L Normal 22-32 [facility] Comment on above: Performed By: #### A DIFF, GFR, LIPID, CBC, HFP, BMP, MG, ANEU #### [address] [address] Creatinine [Mass/Vol] 0.82 mg/dL Normal 0.60-1.40 [facility] Comment on above: Result Comment: Test ing performed on SurgiLight analyzer using enzymatic creatinine methodology. Performed By: #### A DIFF, GFR, LIPID, CBC, HFP, BMP, MG, ANEU #### [place] [id number] Electrolyte Balance 7.0 mEq/L Normal 4.0-15.0 [facility] Comment on above: Performed By: #### A DIFF, GFR, LIPID, CBC, HFP, BMP, MG, ANEU #### [address] [address] Glucose [Mass/Vol] 88 mg/dL Normal 70-110 [facility] Comment on above: Performed By: #### A DIFF, GFR, LIPID, CBC, HFP, BMP, MG, ANEU #### [place] [id number] Potassium [Moles/Vol] 3.5 mmol/L Normal 3.5-5.0 [facility] Comment on above: Performed By: #### A DIFF, GFR, LIPID, CBC, HFP, BMP, MG, ANEU #### [place] [address] Sodium [Moles/Vol] 145 mmol/L Normal 136-145 [facility] Comment on above: Performed By: #### A DIFF, GFR, LIPID, CBC, HFP, BMP, MG, ANEU #### [place] [address] CBCon 02-22-2025 Erythrocyte distribution width (RBC) [Ratio] 13.1 % Normal 11.5-15.5 [facility] Comment on above: Performed By: #### A DIFF, GFR, LIPID, CBC, HFP, BMP, MG, ANEU #### [place] [address] Hematocrit (Bld) [Volume fraction] 43.3 % Normal 40.0-52.0 [facility] Comment on above: Performed By: #### A DIFF, GFR, LIPID, CBC, HFP, BMP, MG, ANEU #### [place] [address] Hgb 15.0 G/dL Normal 13.0-17.5 [facility] Comment on above: Performed By: #### A DIFF, GFR, LIPID, CBC, HFP, BMP, MG, ANEU #### [place] [address] MCH (RBC) [Entitic mass] 31.3 pg Normal 27.0-33.0 [facility] Comment on above: Performed By: #### A DIFF, GFR, LIPID, CBC, HFP, BMP, MG, ANEU #### [place] [address] MCHC 34.7 G/dL Normal 32.0-36.0 [facility] Comment on above: Performed By: #### A DIFF, GFR, LIPID, CBC, HFP, BMP, MG, ANEU #### [place] [address] MCV (RBC) [Entitic vol] 90.2 fL Normal 81.0-100.0 [facility] Comment on above: Performed By: #### A DIFF, GFR, LIPID, CBC, HFP, BMP, MG, ANEU #### [place] [address] Platelet 207 10 3/mcL Normal 150-450 [facility] Comment on above: Performed By: #### A DIFF, GFR, LIPID, CBC, HFP, BMP, MG, ANEU #### [place] [address] Platelet mean volume (Bld) [Entitic vol] 7.6 fL Normal 6.4-10.5 [facility] Comment on above: Performed By: #### A DIFF, GFR, LIPID, CBC, HFP, BMP, MG, ANEU #### [place] [address] RBC 4.80 10 6/mcL Normal 4.50-6.00 [facility] Comment on above: Performed By: #### A DIFF, GFR, LIPID, CBC, HFP, BMP, MG, ANEU #### [place] [id number] WBC 7.3 10 3/mcL Normal 4.5-10.8 [facility] Comment on above: Performed By: #### A DIFF, GFR, LIPID, CBC, HFP, BMP, MG, ANEU #### [address] [address] HFPon 02-22-2025 Bili Indirect 0.8 mg/dL Normal 0.1-10.0 [facility] Comment on above: Performed By: #### A DIFF, GFR, LIPID, CBC, HFP, BMP, MG, ANEU #### [place] [address] Albumin Level 3.5 G/dL Normal 3.2-4.8 [facility] Comment on above: Performed By: #### A DIFF, GFR, LIPID, CBC, HFP, BMP, MG, ANEU #### [place] [address] Albumin/Globulin [Mass ratio] 1.5 {ratio} Normal 0.9-1.6 [facility] Comment on above: Performed By: #### A DIFF, GFR, LIPID, CBC, HFP, BMP, MG, ANEU #### [place] [address] ALP [Catalytic activity/Vol] 75 U/L Normal 38-126 [facility] Comment on above: Performed By: #### A DIFF, GFR, LIPID, CBC, HFP, BMP, MG, ANEU #### [place] [address] ALT [Catalytic activity/Vol] 10 U/L Low 12-55 [facility] Comment on above: Performed By: #### A DIFF, GFR, LIPID, CBC, HFP, BMP, MG, ANEU #### [place] [address] AST [Catalytic activity/Vol] 17 U/L Normal 8-34 [facility] Comment on above: Performed By: #### A DIFF, GFR, LIPID, CBC, HFP, BMP, MG, ANEU #### [place] [address] Bili Direct 0.4 mg/dL Normal 0.0-0.4 [facility] Comment on above: Result Comment: Use of this assay is not recommended for patients undergoing treatment with eltrombopag due to the potential for falsely elevated results. Performed By: #### A DIFF, GFR, LIPID, CBC, HFP, BMP, MG, ANEU #### [place] [address] Bili Total 1.20 mg/dL Normal 0.20-1.20 [facility] Comment on above: Result Comment: Use of this assay is not recommended for patients undergoing treatment with eltrombopag due to the potential for falsely elevated results. Performed By: #### A DIFF, GFR, LIPID, CBC, HFP, BMP, MG, ANEU #### [place] [address] Globulin 2.4 G/dL Normal 1.5-3.8 [facility] Comment on above: Performed By: #### A DIFF, GFR, LIPID, CBC, HFP, BMP, MG, ANEU #### [place] [id number] Total Protein 5.9 G/dL Normal 5.7-8.2 [facility] Comment on above: Performed By: #### A DIFF, GFR, LIPID, CBC, HFP, BMP, MG, ANEU #### [address] [address] LABORATORYOrdered By: SYSTEM SYSTEM on 02-22-2025 Albumin [...] 17 U/L Normal 8 - 34 U/L ADM SS Basophils (Bld) [#/Vol] 0.1 103/mcL Normal 0.0 - 0.3 10^3/mcL Workflow SS Basophils/100 WBC (Bld) 1.0 % Normal 0.0 - 2.5 % Workflow SS Bili Indirect 0.8 mg/dL Normal [...] above: Interpretive Data: T esting performed on Pulsar CH analyzer using enzymatic creatinine methodology. Electrolyte Balance [...] 2.4 G/dL Normal 1.5 - 3.8 G/dL ADM SS Glucose [Mass/Vol] 88 mg/dL Normal 70 - 110 mg/dL ADM SS Hematocrit (Bld) [Volume fraction] 43.3 % Normal 40.0 - 52.0 % Workflow SS Hemoglobin (Bld) [Mass/Vol] 15.0 G/dL Normal 13.0 - 17.5 G/dL Workflow SS Lymphocytes (Bld) [#/Vol] 2.5 103/mcL Normal 0.9 - 4.3 10^3/mcL Workflow SS Lymphocytes/100 WBC (Bld) 34.8 % Normal 20.0 - 40.0 % Workflow SS Magnesium [Mass/Vol] 2.0 mg/dL Normal 1.6 - 2 .4 mg/dL ADM SS MCH (RBC) [Entitic mass] 31.3 [...] 145 mmol/L Normal 136 - 145 mEq/L AH ADM SS WBC (Bld) [#/Vol] 7.3 103/mcL Normal 4.5 - 10.8 10^3/mcL AH Workflow SS LABORATORYOrdered By: Leonel Jackson on 02-22-2025 Cholesterol [Mass/Vol] 112 mg/dL Normal 50 - 199 mg/d L Chemistry S Comment on above: Interpretive Data: C holesterol Reference Interval: Less than 200 Desirable 200-239 Borderline high risk 240 and above High risk Cholesterol in HDL [Mass/Vol] 26 mg/dL Low 40 - 59 mg/dL AH Chemistry S Cholesterol in LDL [Mass/Vol] 67 mg/dL Normal 0 - 129 mg/dL AH Chemistry S Triglyceride [Mass/Vol] 96 mg/dL Normal 3 - 149 mg/dL AH Chemistry S Urea nitrogen [Mass/Vol] mg/dL Low 8.0 - 22.0 mg/dL Chemistry S Urea nitrogen/Creatinine [Mass ratio] Unable to Calculate Invalid Interpretation Code 10.0 - 22.0 Chemistry S Comment on above: Result Comment: Unab le to calculate this test result accurately. Results used to calculate this test are outside the reportable range. LIPIDon 02-22-2025 Cholesterol [Mass/Vol] 112 mg/dL Normal 50-199 [facility] Comment on above: Result Comment: Chol esterol Reference Interval: Less than 200 Desirable 200-239 Borderline high risk 240 and above High risk Performed By: #### A DIFF, GFR, LIPID, CBC, HFP, BMP, MG, ANEU #### [address] [address] Cholesterol in HDL [Mass/Vol] 26 mg/dL Low 40-59 [facility] Comment on above: Performed By: #### A DIFF, GFR, LIPID, CBC, HFP, BMP, MG, ANEU #### [address] [address] Cholesterol in LDL [Mass/Vol] 67 mg/dL Normal 0-129 [facility] Comment on above: Performed By: #### A DIFF, GFR, LIPID, CBC, HFP, BMP, MG, ANEU #### [address] [address] Triglyceride [Mass/Vol] 96 mg/dL Normal 3-149 [facility] Comment on above: Performed By: #### A DIFF, GFR, LIPID, CBC, HFP, BMP, MG, ANEU #### [address] [address] MGon 02-22-2025 Magnesium [Mass/Vol] 2.0 mg/dL Normal 1.6-2.4 [facility] Comment on above: Performed By: #### A DIFF, GFR, LIPID, CBC, HFP, BMP, MG, ANEU #### [address] [address] CNOVon 01-27-2025 CNOV Office Visit (UROLWS ) JOSAFAT ALVARENGA ([id number]) 1985 M Date Time Provider Department 01/27/25 4:30 PM FAUZIA SORENSON During your visit today, we recorded the following information about you: Temperature Pulse Respiration Blood pressure 98.3 degrees 112/minute 14/minute 118/74 Weight Height 77.1 kg 1.702 m Fauzia Sorenson PA-C 02/08/2025 11:40 PM Signed [facility] EST PATIENT CLINIC NOTE [...] PFPT more local to him Recommend calling orthophotography technician for PFPT and see what's available near [facility] [place] LUTS: No change still having same LUTS [...] from 07/2024 call to schedule locally near [place] Allergies As of Date: 01/27/2025 Noted Allergy Reaction LATEX 10/25/2005 2 - Rash 4 - Hives 9 - Itching 12 - Shortness of Breath Comments: Rash, eyes swell shut (more content not included)... Normal [facility] .Auto Diffon 11-25-2024 Basophil, Absolute 0.1 10 3/mcL Normal 0.0-0.2 [facility] Comment on above: Performed By: #### A DIFF, CBC, MDW, BMP, ANEU, TROPHS, GFR #### [address] [address] Basophils/100 WBC (Bld) 1.2 % Normal 0.0-2.5 [facility] Comment on above: Performed By: #### A DIFF, CBC, MDW, BMP, ANEU, TROPHS, GFR #### [address] [address] Eosinophil, Absolute 0.3 10 3/mcL Normal 0.0-0.7 [facility] Comment on above: Performed By: #### A DIFF, CBC, MDW, BMP, ANEU, TROPHS, GFR #### [id number] [place], [place] [address] Eosinophils/100 WBC (Bld) 4.7 % Normal 0.0-7.0 [facility] Comment on above: Performed By: #### A DIFF, CBC, MDW, BMP, ANEU, TROPHS, GFR #### [address] [address] Lymphocyte, Absolute 1.5 10 3/mcL Normal 0.9-4.3 [facility] Comment on above: Performed By: #### A DIFF, CBC, MDW, BMP, ANEU, TROPHS, GFR #### [address] [address] Lymphocytes/100 WBC (Bld) 25.5 % Normal 20.0-40.0 [facility] Comment on above: Performed By: #### A DIFF, CBC, MDW, BMP, ANEU, TROPHS, GFR #### [address] [address] Monocyte, Absolute 0.3 10 3/mcL Normal 0.1-1.4 [facility] Comment on above: Performed By: #### A DIFF, CBC, MDW, BMP, ANEU, TROPHS, GFR #### [address] [address] Monocytes/100 WBC (Bld) 4.6 % Normal 2.0-13.0 [facility] Comment on above: Performed By: #### A DIFF, CBC, MDW, BMP, ANEU, TROPHS, GFR #### [address] [address] Neutrophils/100 WBC (Bld) 64.0 % Normal 50.0-75.0 [facility] Comment on above: Performed By: #### A DIFF, CBC, MDW, BMP, ANEU, TROPHS, GFR #### [address] [address] .GFRon 11-25-2024 GFR 106 ml/min/1.73sqm Normal [facility] Comment on above: Result Comment: GFR Population [...] CBC, MDW, BMP, ANEU, TROPHS, GFR #### [address] [address] GFR Non- 87 ml/min/1.73sqm Normal [facility] Comment on above: Result Comment: GFR Population [...] CBC, MDW, BMP, ANEU, TROPHS, GFR #### [address] [address] .MDWon 11-25-2024 Monocyte Distribution Width 17.65 Normal 0.00-20.00 [facility] Comment on above: Result Comment: For ED adult patients suspected of sepsis, MDW<=20.0 does not rule out sepsis or risk of sepsis Performed By: #### A DIFF, CBC, MDW, BMP, ANEU, TROPHS, GFR #### [address] [address] .NEUABSon 11-25-2024 Neutrophil, Absolute 3.9 10 3/mcL Normal 2.3-8.1 [facility] Comment on above: Performed By: #### A DIFF, CBC, MDW, BMP, ANEU, TROPHS, GFR #### [address] [address] BMPon 11-25-2024 BUN/Creatinine Ratio 4 ratio Low 7-27 [facility] Comment on above: Performed By: #### A DIFF, CBC, MDW, BMP, ANEU, TROPHS, GFR #### [address] [address] Calcium [Mass/Vol] 9.5 mg/dL Normal 8.4-10.2 [facility] Comment on above: Performed By: #### A DIFF, CBC, MDW, BMP, ANEU, TROPHS, GFR #### [address] [address] Chloride [Moles/Vol] 104 mmol/L Normal 98-107 [facility] Comment on above: Performed By: #### A DIFF, CBC, MDW, BMP, ANEU, TROPHS, GFR #### [address] [address] CO2 [Moles/Vol] 29 mmol/L Normal 22-29 [facility] Comment on above: Performed By: #### A DIFF, CBC, MDW, BMP, ANEU, TROPHS, GFR #### [address] [address] Creatinine [Mass/Vol] 0.95 mg/dL Normal 0.70-1.30 [facility] Comment on above: Result Comment: Test ing performed on Siemens Dimension EXL analyzer using a modified kinetic Luz technique. Performed By: #### A DIFF, CBC, MDW, BMP, ANEU, TROPHS, GFR #### [address] [address] Electrolyte Balance 8.0 mEq/L Normal 4.0-15.0 [facility] Comment on above: Performed By: #### A DIFF, CBC, MDW, BMP, ANEU, TROPHS, GFR #### [address] [address] Glucose [Mass/Vol] 121 mg/dL High 70-105 [facility] Comment on above: Performed By: #### A DIFF, CBC, MDW, BMP, ANEU, TROPHS, GFR #### [address] [address] Potassium [Moles/Vol] 3.6 mmol/L Normal 3.5-5.1 [facility] Comment on above: Performed By: #### A DIFF, CBC, MDW, BMP, ANEU, TROPHS, GFR #### [address] [address] Sodium [Moles/Vol] 141 mmol/L Normal 136-145 [facility] Comment on above: Performed By: #### A DIFF, CBC, MDW, BMP, ANEU, TROPHS, GFR #### [address] [address] Urea nitrogen [Mass/Vol] 4 mg/dL Low 7-18 [facility] Comment on above: Performed By: #### A DIFF, CBC, MDW, BMP, ANEU, TROPHS, GFR #### [address] [address] CBCon 11-25-2024 Erythrocyte distribution width (RBC) [Ratio] 13.4 % Normal 11.5-15.5 [facility] Comment on above: Performed By: #### A DIFF, CBC, MDW, BMP, ANEU, TROPHS, GFR #### [address] [address] Hematocrit (Bld) [Volume fraction] 44.8 % Normal 40.0-52.0 [facility] Comment on above: Performed By: #### A DIFF, CBC, MDW, BMP, ANEU, TROPHS, GFR #### [address] [address] Hgb 15.8 G/dL Normal 13.0-17.5 [facility] Comment on above: Performed By: #### A DIFF, CBC, MDW, BMP, ANEU, TROPHS, GFR #### [address] [address] MCH (RBC) [Entitic mass] 31.6 pg Normal 27.0-33.0 [facility] Comment on above: Performed By: #### A DIFF, CBC, MDW, BMP, ANEU, TROPHS, GFR #### [address] [address] MCHC 35.3 G/dL Normal 32.0-36.0 [facility] Comment on above: Performed By: #### A DIFF, CBC, MDW, BMP, ANEU, TROPHS, GFR #### [address] [address] MCV (RBC) [Entitic vol] 89.5 fL Normal 81.0-100.0 [facility] Comment on above: Performed By: #### A DIFF, CBC, MDW, BMP, ANEU, TROPHS, GFR #### [address] [address] Platelet 249 10 3/mcL Normal 150-450 [facility] Comment on above: Performed By: #### A DIFF, CBC, MDW, BMP, ANEU, TROPHS, GFR #### [address] [address] Platelet mean volume (Bld) [Entitic vol] 7.5 fL Normal 6.4-10.5 [facility] Comment on above: Performed By: #### A DIFF, CBC, MDW, BMP, ANEU, TROPHS, GFR #### [address] [address] RBC 5.00 10 6/mcL Normal 4.50-6.00 [facility] Comment on above: Performed By: #### A DIFF, CBC, MDW, BMP, ANEU, TROPHS, GFR #### [address] [address] WBC 6.0 10 3/mcL Normal 4.5-10.8 [facility] Comment on above: Performed By: #### A DIFF, CBC, MDW, BMP, ANEU, TROPHS, GFR #### [place] [address] CVFLURVon 11-25-2024 FLU A PCR Negative Normal Negative [facility] Comment on above: Performed By: #### C VFLURV #### [place] [address] FLU B PCR Negative Normal Negative [facility] Comment on above: Performed By: #### C VFLURV #### [place] [address] RSV PCR Negative Normal Negative [facility] Comment on above: Performed By: #### C VFLURV #### [place] [address] SARS-CoV-2 (COVID-19) RNA TRACY+probe Ql (Unsp spec) Negative Normal Negative [facility] Comment on above: Result Comment: Resu lts [...] results. Performed By: #### C VFLURV #### [place] [address] LABORATORYOrdered By: SYSTEM SYSTEM on 11-25-2024 Basophils (Bld) [#/Vol] 0.1 103/mcL Normal 0.0 - 0.2 10^3/mcL AO Workflow SS Basophils/100 WBC (Bld) 1.2 % Normal 0.0 - 2.5 % AO Workflow SS Calcium [Mass/Vol] 9.5 mg/dL Normal 8.4 - 10. 2 mg/dL AO ADM SS Chloride [Moles/Vol] 104 mmol/L Normal 98 - 10 7 mmol/L AO ADM SS CO2 [Moles/Vol] 29 mmol/L Normal 22 - 29 mmol/L AO AD M SS Creatinine [Mass/Vol] 0.95 mg/dL Normal 0.70 - 1.30 mg/dL AO ADM SS Comment on above: Interpretive Data: T esting performed on [employer] Dimension EXL analyzer using a modified kinetic [...] ng/L Male: 0-76 ng/L Testing performed on [employer] using a homogeneous sandwich chemiluminescent immunoassay based on [employer] technology. Urea nitrogen [Mass/Vol] 4 mg/dL Low [...] influenza vaccines may cause inaccurate positive results. John 11-25-2024 High Sensitivity Troponin I 4 ng/L Normal 0-76 [facility] Comment on above: Result Comment: High Sensitive Troponin I Reference Ranges: Female: 0-51 ng/L Male: 0-76 ng/L Testing performed on [employer] using a homogeneous sandwich chemiluminescent immunoassay based on [employer] technology. Performed By: #### A DIFF, CBC, MDW, BMP, ANEU, TROPHS, GFR #### [address] [address] XR CHEST 1 VIEWon 11-25-2024 XR CHEST [...] Sign Date: 11/25/2024 12:10:54 PM Ordering Provider: FROYLNA Suazo [facility] CNOVzurdo 10-28-2024 CNOV Office Visit (UROLWS ) JOSAFAT ALVARENGA ([id number]) 1985 M Date Time Provider Department 10/28/24 3:30 PM FAUZIA SORENSON During your visit today, we recorded the following information about you: Pulse Blood pressure Weight 81/minute 124/85 73.5 kg Fauzia Sorenson PA-C 10/28/2024 5:20 PM Signed [facility] EST PATIENT CLINIC NOTE SERVICE [...] new Rx Follow-up VINCENT Leal MT, PA-C Referring Provider: SELF [200] Allergies As of [...] Sexual Prob (more content not included)... Normal [facility] 12 Lead EKGon 10-21-2024 12 Lead EKG [facility] Cardiovascular Services [address] [place] [address] 12 Lead EKG 10/21/24 0246 MR#: [id number] Acct: [id number] Name: JOSAFAT ALVARENGA Rep #: [id number] : 1985 39 From: Pravin Carlos MD [...] ECG Confirmed by MARS JARRELL, PRAVIN ([id number]), scientific editor YOSSI BURGER ([id number]) on 10/21/2024 8:20:06 AM Referred By: Confirmed By: PRAVIN CARLOS MD 10/21/24819 Date Pravin Carlos MD CC: Dr. Freddy Batres MD; No Primary Care Physician Signed Normal [facility] Basic Metabolic Profile (BMP )on 10-21-2024 BUN/CRE 17.7 RATIO Normal -20 [facility] Comment on above: Performed By: #### L 500.2500, L100.0100 ####[facility] [address] [place], [address] CA,Total 9.3 mg/dL Normal 8.5-10.1 [facility] Comment on above: Performed By: #### L 500.2500, L100.0100 ####[facility] [address] [place], [address] Chloride [Moles/Vol] 102 mmol/L Normal 98-[address] [facility] Comment on above: Performed By: #### L 500.2500, L100.0100 ####[facility] [address] [place], [address] CO2 [Moles/Vol] 26.0 mmol/L Normal 21.0-32.0 [facility] Comment on above: Performed By: #### L 500.2500, L100.0100 ####[facility] [address] [place], [address] Creatinine [Mass/Vol] 1.13 mg/dL Normal 0.70-1.30 [facility] Comment on above: Result Comment: The validity of the calculated GFR GFRAA in patients over 70 years has not been determined. Clinical correlation is essential. Performed By: #### L 500.2500, L100.0100 ####[facility] [address] [place], [address] ECRCL 77.63 ml/min Normal [facility] Comment on above: Performed By: #### L 500.2500, L100.0100 ####[facility] [address] [place], [address] EST GFR - AA 92 mL/min Normal >60 [facility] Comment on above: Result Comment: Afri can Luxembourger GFR Calc Performed By: #### L 500.2500, L100.0100 ####[facility] [address] [place], [address] GAP 8 Normal 5-15 [facility] Comment on above: Performed By: #### L 500.2500, L100.0100 ####[facility] [address] [place], [address] GFR/1.73 sq M.predicted among non-blacks MDRD (S/P/Bld) [Vol rate/Area] 76 mL/min/{1.73_m2} Normal >60 [facility] Comment on above: Result Comment: Non- GFR Calc Performed By: #### L 500.2500, L100.0100 ####[facility] [address] [place], [address] Glucose [Mass/Vol] 110 mg/dL High 74-106 [facility] Comment on above: Result Comment: Fast ing Glucose result from 100 to 125 mg/dL suggests IMPAIRED HOMEOSTASIS per A.D.A. criteria. Performed By: #### L 500.2500, L100.0100 ####[facility] [address] [place], [address] Potassium [Moles/Vol] 3.2 mmol/L Low 3.5-5.1 [facility] Comment on above: Result Comment: Mode rate Hemolysis, Result may be falsely increased. Performed By: #### L 500.2500, L100.0100 ####[facility] [address] [place], [address] Sodium [Moles/Vol] 136 mmol/L Normal 136-145 [facility] Comment on above: Performed By: #### L 500.2500, L100.0100 ####[facility] [address] [place], [address] Urea nitrogen [Mass/Vol] 20 mg/dL High 7-18 [facility] Comment on above: Performed By: #### L 500.2500, L100.0100 ####[facility] [address] [place], [address] Brain/Head without Contrasto n 10-21-2024 Brain/Head without Contrast [facility] Imaging Services [address] [place] [address] Brain/Head without Contrast MR#: [id number] Acct: [id number] Name: JOSAFAT ALVARENGA Rep #: [id number] : 1985 M 39 From: Jhony hedrick MD PCP: Care Physician,No Primary Status: DEP ER Study: Brain/Head without Contrast Date of Exam: 10/12 Exam# [id number] Ordering [place]: [place] [id number] EXAM: CT HEAD WITHOUT INTRAVENOUS CONTRAST CLINICAL [...] Freddy Batres MD; No Primary Care Physician Academic Advisement Director: Signed Normal [facility] CBC W/Diff, Automatedon - 0-2023 Absolute Lymph 2.76 X10 3/uL Normal 0.83-4.51 [facility] Comment on above: Performed By: #### L 500.2500, L100.0100 ####[facility] [address] [place], [address] Absolute Neut 3.7 X10 3/uL Normal 2.0-7.7 [facility] Comment on above: Performed By: #### L 500.2500, L100.0100 ####[facility] [address] [place], [address] Basophils/100 WBC (Bld) 0.9 % Normal 0-1 [facility] Comment on above: Performed By: #### L 500.2500, L100.0100 ####[facility] [address] [place], [address] Eosinophils/100 WBC (Bld) 8.9 % High 0-5 [facility] Comment on above: Performed By: #### L 500.2500, L100.0100 ####[facility] [address] [place], [address] Erythrocyte distribution width (RBC) [Ratio] 12.2 % Normal 11.6-14.6 [facility] Comment on above: Performed By: #### L 500.2500, L100.0100 ####[facility] [address] [place], [address] Hematocrit (Bld) [Volume fraction] 42.2 % Normal 40-54 [facility] Comment on above: Performed By: #### L 500.2500, L100.0100 ####[facility] [address] [place], [address] Hemoglobin (Bld) [Mass/Vol] 15.2 g/dL Normal 13.0-16.5 [facility] Comment on above: Performed By: #### L 500.2500, L100.0100 ####[facility] [address] [place], [address] IG% 0.200 Normal 0.0-0.9 [facility] Comment on above: Result Comment: IG% - Immature Granulocytes (promyelocytes, myelocytes and metamyelocytes) > 1% indicates that a LEFT SHIFT is Present. Performed By: #### L 500.2500, L100.0100 ####[facility] [address] [place], [address] Lymphocytes/100 WBC (Bld) 34.5 % Normal 19-41 [facility] Comment on above: Performed By: #### L 500.2500, L100.0100 ####[facility] [address] [place], [address] MCH (RBC) [Entitic mass] 31.7 pg Normal 27.0-32.0 [facility] Comment on above: Performed By: #### L 500.2500, L100.0100 ####[facility] [address] [place], [address] MCHC (RBC) [Mass/Vol] 36.0 g/dL Normal 32-36 [facility] Comment on above: Performed By: #### L 500.2500, L100.0100 ####[facility] [address] [place], [address] MCV (RBC) [Entitic vol] 87.9 fL Normal 80-94 [facility] Comment on above: Performed By: #### L 500.2500, L100.0100 ####[facility] [address] [place], [address] Monocytes/100 WBC (Bld) 9.5 % Normal 0-10 [facility] Comment on above: Performed By: #### L 500.2500, L100.0100 ####[facility] [address] [place], [address] Neutrophils/100 WBC (Bld) 46.0 % Low 47-70 [facility] Comment on above: Performed By: #### L 500.2500, L100.0100 ####[facility] [address] [place], [address] Nucleated RBC (Bld) [#/Vol] 0 10*3/uL Normal 0-5 [facility] Comment on above: Performed By: #### L 500.2500, L100.0100 ####[facility] [address] [place], [address] Platelet mean volume (Bld) [Entitic vol] 10.6 fL Normal 6.2-12.0 [facility] Comment on above: Performed By: #### L 500.2500, L100.0100 ####[facility] [address] [place], [address] Platelets (Bld) [#/Vol] 258 10*3/uL Normal 150-450 [facility] Comment on above: Performed By: #### L 500.2500, L100.0100 ####[facility] [address] [place], [address] RBC (Bld) [#/Vol] 4.80 10*6/uL Normal 4.6-6.2 [facility] Comment on above: Performed By: #### L 500.2500, L100.0100 ####[facility] [address] [place], [address] RDW SD 39.3 fl Normal 35.1-43.9 [facility] Comment on above: Performed By: #### L 500.2500, L100.0100 ####[facility] [address] [place], [address] WBC (Bld) [#/Vol] 8.0 10*3/uL Normal 4.4-11.0 [facility] Comment on above: Performed By: #### L 500.2500, L100.0100 ####[facility] [address] [place], [address] Emergency Department Summary on 10-21-2024 Emergency Department Summary [facility] Medical Records Department [address] [place] [address] Emergency Department Summary 10/21/24 MR#: [id number] Acct: [id number] Name: JOSAFAT ALVARENGA Rep #: [id number] : 1985 39 From: Freddy Batres MD [...] similar symptoms: No Recent Illness/Hospitalization : [facility] Medical History History of intravenous drug abuse [...] all 4 extremities. 5 out of 5 dryerman/woman strength bilaterally. Dorsi plantarflexion intact. No drift. [...] Thoracic S (more content not included)... Normal [facility] [id number] 09-25-2024 [id number] HNO ID: [id number] Author: KAREN AUGUSTIN PT, DPT Service: ? Author Type: Physical Therapist Type: [id number] Filed: 09/25/2024 11:22 Note Text: [facility] Physical Therapy Plan of Care Certification Patient Name: Josafat Alvarenga : 1985 CC #: [id number] Date: 09/25/2024 To: Fauzia Sorenson PA-C From Therapist: Karen Augustin PT, DPT RE: Patient Certification/ Recertification Your review, approval and electronic signature are required in order to comply with Payor: JEFFERSON / Plan: JEFFERSON AMITA / Product Type: [...] reports firmer stool consistency to combat fecal incontinence.-Lamb 3 4 is the goal Patient reports [...] Planned: 16 Planned Treatment Interventions: Therapeutic exercise (58322), Neuromuscular re-education (17717), Manual therapy (78944), Therapeutic activities (91643), Self-halfway management (38587), Functional training, General Conditioning, Biofeedback Pelvic (22763,83796) PLAN FOR NEXT VISIT: Addressed left lower quadrant, pelvic floor tone and consider internal rectal if pain continues: Down training: Review fiber and Lamb Impact Patient demonstrates good understanding of plan of care and treatment. The above goals and plan of care were discussed and agreed upon by patient/family. For further details regarding this patient refer to the Physical Therapy electronically documented visit dated 09/25/2024. Provider Attestation I have reviewed the treatment plan for Josafat Alvarenga, [facility]# [id number] for the period of 09/25/24 -- 11/24/24, established on 09/25/2024. Signature certifies the need for therapy services. [facility] CNTHERAPYon 09-25-2024 CNTHERAPY OT/PT/Speech Visit (PNORCA) LYLE,JOSAFAT Rosenbaum ([id number]) 1985 M Date Time Provider Department 09/25/24 10:45 AM [facility] Date [facility] Provider Department Center 09/25/2024 10:45 AM [id number], LAURA L [facility] Reason for Visit: PT Eval [747] [...] then 200mg daily for 14 days total. Grounds Maintenance Worker: Addendum Therapy (PT/OT/Speech/Resp) ID: [id number] 09/25/2024 11:00 AM Author: KAREN AUGUSTIN Signed by KAREN AUGUSTIN PT, DPT on 09/25/2024 at 11:00 AM * * * This document replaces document [id number] * * * Document text: Program_ID:[id number] Access Code: [email or web address] URL: [email or web address] Date: 09-25-2024 Prepared By: KAREN AUGUSTIN Program [...] Patient Education - cc Pelvic Floor - Lamb Stool Chart - High-Fiber Diet to Support Pelvic Health - cc Pelvic Floor - Fiber [facility] THERAPY NTon 09-25-2024 THERAPY NT HNO ID: [id number] Author: KAREN AUGUSTIN, PT, DPT Service: ? Author Type: Physical Therapist Type: Therapy (PT/OT/Speech/Resp) Filed: 09/25/2024 11:00 Note Text: Program_ID:[id number] Access Code: [email or web address] URL: [email or web address] [employer]/ Date: 09-25-2024 Prepared By: KAREN AUGUSTIN Program [...] Patient Education - cc Pelvic Floor - Lamb Stool Chart - High-Fiber Diet to Support Pelvic Health - cc Pelvic Floor - Fiber Normal [facility] CNOVon 08-28-2024 CNOV Office Visit (UCWSTR ) JOSAFAT ALVARENGA ([id number]) 1985 M Date Time Provider Department 08/28/24 5:00 PM COMFORT RINCON [facility] During your visit today, we recorded the following information about you: Temperature Pulse Respiration Blood pressure 96.2 degrees 89/minute 24/minute 140/100 Weight 76.5 kg Comfort Rincon APRN.CNP 08/28/2024 6:43 PM Signed This note was created using NoteWriter. Subjective Josafat Robi Lyle is a 39 year old male. 39 year old male with PMH asthma presents for illness. Acute onset 24 hours +cough +productive +runny nose +itchy eyes +sore throat +nausea Denies ears Denies fever or chills Denies CP Denies dyspnea Denies emesis Denies diarrhea The history is provided by the patient. No experimental mechanic outboard motors was used. Cough This is a new [...] 07/15/2024 Pelvic pain in male 07/15/2024 Schizophrenia ([facility]) Seeing Dr. Vicente Seasonal allergies Tobacco use disorder PAST SURGICAL HISTORY Procedure Laterality Date CIRCUMCISION 08/27/2009 EGD 08/17/14 meat removed from stricture EGD 08/12/2019 foreign body removal EGD FLEXIBLE FOREIGN BODY REMOVAL 04/09/07 [facility] ER, no dilatation ESOPHAGOGASTRODUODENOSC OPY TRANSORAL DIAGNOSTIC 05/13/14 eosinophilic esophagitis,relative stricture ESOPHAGOGASTRODUODENOSC OPY TRANSORAL DIAGNOSTIC 09/30/2014 EGD ESOPHAGOGASTRODUODENOSC OPY TRANSORAL DIAGNOSTIC 06/14/2017 [facility] ER with foreign body removed from esophagus ESOPHAGOGASTRODUODENOSC OPY TRANSORAL DIAGNOSTIC 08/13/2017 [facility] ER with foreign body removal from esophagus [...] Marijuana Com (more content not included)... Normal [facility] COVID AND INFLUENZA A/B AND RSV PCR, ROUTINEon 08-28-2024 SARS-CoV-2 (COVID-19) RNA TRACY+probe Ql (Unsp spec) SARS-COV-2 (AGENT OF COVID-19) RNA: Not detected INFLUENZA A RNA: Not detected INFLUENZA B RNA: Not detected RESPIRATORY SYNCYTIAL VIRUS (RSV) RNA: Not detected Normal [facility] Comment on above: Performed By: #### C VFLRS ####[facility] [id number] [place] [id number] [place] STREP A MOLECULAR (POC)on Procedural Control Valid [facility] Strep A (POCT) Negative Negative [facility] XR CHEST 2V FRONTAL/LATon XR CHEST [...] tissues: Unremarkable. IMPRESSION: No acute radiographic abnormality. Academic Advisement Director: [employer] Transcribe Date/Time: Aug 28 2024 6:06P Dictated by : VALENTINO KAUR MD This examination was interpreted and the report reviewed and electronically signed by: VALENTINO KAUR MD on Aug 28 2024 6:07PM EST [id number] Normal [facility] XR Chest PA and Lateralon IMPRESSION: No acute radiographic abnormality. Academic Advisement Director: [employer] Transcribe Date/Time: Aug 28 2024 6:06P Dictated [...] soft tissues: Unremarkable. DIVISION OF RADIOLOGY Provider, Marisa Javy [facility] - 08/28/2024 * * *Final Report* [...] Unremarkable. IMPRESSION IMPRESSION: No acute radiographic abnormality. Academic Advisement Director: [employer] Transcribe Date/Time: Aug 28 2024 6:06P Dictated by : VALENTINO KAUR MD This examination was interpreted and the report reviewed and electronically signed by: VALENTINO KAUR MD on Aug 28 2024 6:07PM EST [facility] Radiology Study observation (narrative) [facility] XR Chest PA and LateralOrder ed By: Ccf Provider on 08-28-2024 [facility] CNOVon 07-29-2024 CNOV Office Visit (UROLWS ) JOSAFAT ALVARENGA ([id number]) 1985 M Date Time Provider Department 9/17/24 2:30 PM FAUZIA SORENSON UROLWS During your visit today, we recorded the following information about you: Temperature Pulse Respiration Blood pressure 98.3 degrees 98/minute 16/minute 122/82 Weight Height 77.6 kg 1.702 m Fauzia Sorenson PA-C 07/29/2024 6:12 PM Signed Rescheduled patient since he has not had his PFPT consult, we will discuss his LUTS and ED furhter once started PFPT. Fauzia Sorenson MPAS, [place], HARRY Allergies As of Date: 07/29/2024 Noted Allergy [...] 02/23/2014 Hepatitis C [B19.20] 04/01/2014 NO SHOW [[id number]] 08/31/2014 07/12/2017 Asthma with status asthmaticus [J45.902] Eosinophilic esophagitis [K20.0] 08/23/2017 Preop testing [Z01.818] 10/19/2023 Encounter for sterilization [Z30.2] 10/19/2023 Smoker [F17.200] 10/19/2023 Marijuana use [F12.90] 10/19/2023 IV drug abuse (HCC) [F19.10] 10/19/2023 History of hepatitis C [Z86.19] 10/19/2023 Asthma [J45.909] 10/19/2023 Disposition: Return in about 3 months (around 10/28/2024). Follow-up and Disposition History for Encounter Date Provider Department Center 07/29/2024 [id number] SORENSON Hank Magdaleno Encounter Status:Closed by FAUZIA SORENSON on 07/29/24 [facility] CNOVon 07-15-2024 CNOV Office Visit (UROLWS ) JOSAFAT ALVARENGA ([id number]) 1985 M Date Time Provider Department 07/15/24 2:15 PM FAUZIA SORENSON During your visit today, we recorded the following information about you: Temperature Pulse Respiration Blood pressure 97.6 degrees 110/minute 14/minute 118/84 Weight Height 78 kg 1.702 m aFuzia Sorenson PA-C 07/15/2024 5:42 PM Signed [facility] EST PATIENT CLINIC NOTE [...] Negative Neg (more content not included)... Normal [facility] Ignacio 04-30-2024 CNPN Telephone (FAMPWS) JOSAFAT ALVARENGA ([id number]) 1985 Date Time Provider Department 04/30/24 EMMANUEL GONZALEZ During your visit today, we recorded the [...] instructions. Patient verbalizes understanding. Adelaide Solano RN Allergies As of Date: 04/30/2024 Noted Allergy Reaction LATEX 10/25/2005 2 - Rash 4 - Hives 9 - Itching 12 - Shortness of Breath Comments: Rash, eyes swell shut, wheezing FLEXERIL (CYCLOBENZAPRINE HCL) 12/17/2014 5 - Intolerance Comments: Mood change, AND swells throat shut Date Reviewed: 04/29/2024 Reviewed by: Jono Chavez APRN.TOW TRUCK DISPATCHER - Fully Assessed Prescriptions as of 04/30/2024 [...] 02/23/2014 Hepatitis C [B19.20] 04/01/2014 NO SHOW [[id number]] 08/31/2014 07/12/2017 Asthma with status asthmaticus [J45.902] Eosinophilic esophagitis [K20.0] 08/23/2017 Preop testing [Z01.818] 10/19/2023 Encounter for sterilization [Z30.2] 10/19/2023 Smoker [F17.200] 10/19/2023 Marijuana use [F12.90] 10/19/2023 IV drug abuse (HCC) [F19.10] 10/19/2023 History of hepatitis C [Z86.19] 10/19/2023 Asthma [J45.909] 10/19/2023 Encounter Status:Closed by ADELAIDE SOLANO on 04/30/24 Normal [facility] C. trachomatis+N. gonorrhoea e DNA TRCAY+probe Ql (Unsp spec)on 04-29-2024 C. trachomatis rRNA TRACY+probe Ql (Unsp spec) Negative Normal Negative for Chlamydia trachomatis by amplificaton [facility] Comment on above: Order Comment: Speci men Type: URINE SPECIMENOrdering Facility: [facility] Address: [address] [place] [address] Performed By: #### 3 6902-5 ####[facility] [id number] [address] STATES OF [facility] N. gonorrhoeae rRNA TRACY+probe Ql (Unsp spec) Negative Normal Negative for Neisseria gonorrhoeae by amplification [facility] Comment on above: Order Comment: Speci men Type: URINE SPECIMENOrdering Facility: [facility] Address: [address] [place] [address] Performed By: #### 3 6902-5 ####[facility] [id number] [place] [address] [place] CNOVon 04-29-2024 CNOV Office Visit (UCWSTR ) JOSAFAT ALVARENGA ([id number]) 1985 M Date Time Provider Department 04/29/24 1:15 PM JONO CHAVEZ [facility] During your visit today, we recorded the following information about you: Temperature Pulse Respiration Blood pressure 97.3 degrees 94/minute 16/minute 152/86 Weight 84.1 kg Jono Chavez APRN.MARCELLA 04/29/2024 1:41 PM Signed Subjective HPI Nontoxic-appearing [...] removal EGD FLEXIBLE FOREIGN BODY REMOVAL 04/09/07 [facility] ER, no dilatation ESOPHAGOGASTRODUODENOSC OPY TRANSORAL DIAGNOSTIC 05/13/14 eosinophilic esophagitis,relative stricture ESOPHAGOGASTRODUODENOSC OPY TRANSORAL DIAGNOSTIC 09/30/2014 EGD ESOPHAGOGASTRODUODENOSC OPY TRANSORAL DIAGNOSTIC 06/14/2017 [facility] ER with foreign body removed from esophagus ESOPHAGOGASTRODUODENOSC OPY TRANSORAL DIAGNOSTIC 08/13/2017 [facility] ER with foreign body removal from esophagus [...] Negative fo (more content not included)... Normal [facility] UA DIP, URINE (POC)on 2023 BILIRUBIN UA (POCT) Negative Negative [facility] CLARITY UA (POCT) Clear [facility] COLOR UA (POCT) Yellow [facility] GLUCOSE UA (POCT) Negative Negative mg/dL [facility] Hemoglobin Ql (U) Negative Negative [facility] KETONE UA (POCT) Negative Negative mg/dL [facility] LEUKOCYTES UA (POCT) Negative Negative [facility] NITRITE UA (POCT) Negative Negative [facility] PH UA (POCT) 5.5 4.5 - 8.0 [facility] Protein Ql (U) Negative Negative mg/dL [facility] SPECIFIC GRAVITY UA (POCT) 1.025 1.005 - 1.030 [facility] UROBILINOGEN UA (POCT) 0.2 Normal E.U./d L [facility] Location:[address], [address] [place] [address] POINT OF CARE [facility] CNOVon 04-04-2024 CNOV Office Visit (UCWSTR ) JOSAFAT ALVARENGA ([id number]) 1985 M Date Time Provider Department 04/04/24 4:15 PM [facility] During your visit today, we recorded the following information about you: Temperature Pulse Respiration Blood pressure 97.1 degrees 89/minute 18/minute 158/86 Weight 84 kg Benedict Berg APRN.CNP 04/04/2024 4:26 PM Signed Subjective HPI HPI Josafat Alvarenga is a [...] removal EGD FLEXIBLE FOREIGN BODY REMOVAL 04/09/07 [facility] ER, no dilatation ESOPHAGOGASTRODUODENOSC OPY TRANSORAL DIAGNOSTIC 05/13/14 eosinophilic esophagitis,relative stricture ESOPHAGOGASTRODUODENOSC OPY TRANSORAL DIAGNOSTIC 09/30/2014 EGD ESOPHAGOGASTRODUODENOSC OPY TRANSORAL DIAGNOSTIC 06/14/2017 [facility] ER with foreign body removed from esophagus ESOPHAGOGASTRODUODENOSC OPY TRANSORAL DIAGNOSTIC 08/13/2017 [facility] ER with foreign body removal from esophagus [...] wants treat (more content not included)... Normal [facility] CNOVon 03-25-2024 CNOV Office Visit (WSTR ) JOSAFAT ALVARENGA ([id number]) 1985 M Date Time Provider Department 03/25/24 12:45 PM WINNIE KIDD [facility] During your visit today, we recorded the following information about you: Temperature Pulse Respiration Blood pressure 98.5 degrees 82/minute 16/minute 122/84 Weight 81.8 kg Winnie Kidd PA 03/25/2024 1:02 PM Signed This note was created using LocPlanetter. Subjective Josafat Alvarenga is a 38 year [...] removal EGD FLEXIBLE FOREIGN BODY REMOVAL 04/09/07 [facility] ER, no dilatation ESOPHAGOGASTRODUODENOSC OPY TRANSORAL DIAGNOSTIC 05/13/14 eosinophilic esophagitis,relative stricture ESOPHAGOGASTRODUODENOSC OPY TRANSORAL DIAGNOSTIC 09/30/2014 EGD ESOPHAGOGASTRODUODENOSC OPY TRANSORAL DIAGNOSTIC 06/14/2017 [facility] ER with foreign body removed from esophagus ESOPHAGOGASTRODUODENOSC OPY TRANSORAL DIAGNOSTIC 08/13/2017 [facility] ER with foreign body removal from esophagus [...] Ear: Tympa (more content not included)... Normal [facility] STREP A MOLECULAR (POC)on Procedural Control Valid [facility] Strep A (POCT) Negative Negative [facility] US DOPPLER COMPLETEon 2023 US DOPPLER COMPLETE * * *Final Report* * * DATE OF EXAM: Mar 14 2024 10:58AM WRU 1033 - US DOPPLER COMPLETE / PROCEDURE [...] and stored in a permanent archive. M: [facility] COMPARISON: None RESULT: RIGHT SCROTUM: Right testis: [...] of tiny calcifications in the bilateral testes Academic Advisement Director: [facility] Transcribe Date/Time: Mar 17 2024 11:11A Dictated by : HAROON EL MD This examination was interpreted and the report reviewed and electronically signed by: HAROON EL MD on Mar 17 2024 11:17AM EST [id number] Normal [facility] US SCROTUM AND CONTENTSon US SCROTUM AND CONTENTS * * *Final Report* * * DATE OF EXAM: Mar 14 2024 10:58AM U 1063 - US SCROTUM AND CONTENTS / [...] and stored in a permanent archive. M: [facility] COMPARISON: None RESULT: RIGHT SCROTUM: Right testis: [...] of tiny calcifications in the bilateral testes Academic Advisement Director: [facility] Transcribe Date/Time: Mar 17 2024 11:11A Dictated by : HAROON EL MD This examination was interpreted and the report reviewed and electronically signed by: HAROON EL MD on Mar 17 2024 11:17AM EST [id number] Normal [facility] 03-12-2024 AMITA Telephone (AKURFL) JOSAFAT ALVARENGA ([id number]) 1985 M Date Time Provider Department 03/12/24 SONIA KRAMER During your visit today, we recorded the following information about you: Sonia Kramer PA-C 03/12/2024 7:30 AM Signed Please call pt, scheduled with me today, needs to have scrotal us, order in [facility], ok to hold on appt until we get scrotal us. HARRY French Jennifer 03/12/2024 8:51 AM Signed Tried calling pt, voicemail full. Sent [employer] message to let him know about needing [...] unspecified laterality [N50.819] Order(s):US SCROTUM AND CONTENTS [[id number]] Order #: [id number] FUTURE US DOPPLER COMPLETE [[id number]] Order #: [id number] FUTURE Prescriptions as of 03/12/2024 - ibuprofen [...] 02/23/2014 Hepatitis C [B19.20] 04/01/2014 NO SHOW [[id number]] 08/31/2014 07/12/2017 Asthma with status asthmaticus [J45.902] Eosinophilic esophagitis [K20.0] 08/23/2017 Preop testing [Z01.818] 10/19/2023 Encounter for sterilization [Z30.2] 10/19/2023 Smoker [F17.200] 10/19/2023 Marijuana use [F12.90] 10/19/2023 IV drug abuse (HCC) [F19.10] 10/19/2023 History of hepatitis C [Z86.19] 10/19/2023 Asthma [J45.909] 10/19/2023 Encounter Status:Closed by SONIA KRAMER on 03/12/24 [facility] CNOVon 02-28-2024 CNOV Office Visit (AKURFL ) JOSAFAT ALVARENGA ([id number]) 1985 M Date Time Provider Department 02/28/24 [...] which included preparing to see the patient, [id number] patient care, completing clinical documentation, obtaining and/or [...] Primary Visit (more content not included)... Normal [facility] UA DIP, URINE (POC)on 2023 BILIRUBIN UA (POCT) Negative Negative [facility] CLARITY UA (POCT) Clear [facility] COLOR UA (POCT) Yellow [facility] GLUCOSE UA (POCT) Negative Negative mg/dL Dominik [facility] Hemoglobin Ql (U) Negative Negative [facility] KETONE UA (POCT) Negative Negative mg/dL [facility] LEUKOCYTES UA (POCT) Negative Negative [facility] NITRITE UA (POCT) Negative Negative [facility] PH UA (POCT) 6.0 4.5 - 8.0 [facility] Protein Ql (U) Negative Negative mg/dL [facility] SPECIFIC GRAVITY UA (POCT) 1.020 1.005 - 1.030 [facility] UROBILINOGEN UA (POCT) 0.2 E.U./dL Normal E.U./ dL [facility] OPERATIVE NOon 10-23-2023 OPERATIVE NO HNO ID: [id number] Author: Justus Bean Jr., MD Service: Urology Author Type: Physician Type: Operative Report Filed: 10/23/2023 11:27 AM Note Text: [facility] - Operative Report JOSAFAT ALVARENGA : 1985 AGE: 38. SEX: M PATIENT TYPE: A HOSP SVC: URO LOCATION: [facility] ATTENDING PHYSICIAN: JUSTUS BEAN JR CSN NUMBER: [id number] DATE OF SURGERY/PROCEDURE: 10/19/2023 INCISION/PROCEDURE START TIME: 1:50 PM INCISION CLOSE/PROCEDURE END TIME: 1:58 PM PREOPERATIVE DIAGNOSIS: Sterilization. POSTOPERATIVE DIAGNOSIS: Sterilization. SURGEON: Justus Bean Jr, MD FOUNDRY OPERATOR: No Additional Staff SURGERY/PROCEDURE: Bilateral vasectomy. ANESTHESIA: [...] unit for recovery. Justus Bean Jr, MD MG:[id number] /[id number] Normal [facility] ANES POSTPROC EVALon 023 ANES POSTPROC EVAL HNO ID: [id number] Author: Hi Bauer MD Service: Anesthesiology Author Type: Anesthesiologist Type: Anesthesia Postprocedure Evaluation Filed: 10/19/2023 3:46 PM Note Text: POST ANESTHESIA EVALUATION NOTE : 1985 Procedure Summary Date: 10/19/23 Room / Location: [address] Anesthesia Start: 1340 Anesthesia Stop: 1406 [...] October 19, 2023 TIME: 3:46 PM CSN: [id number] Normal [facility] ANES PRE-OPon 10-19-2023 ANES PRE-OP HNO ID: [id number] Author: Samuel Larson MD Service: Anesthesiology Author Type: Physician Type: Anesthesia Preprocedure Evaluation Filed: 10/19/2023 1:19 PM Note Text: ANESTHESIOLOGY DAY OF SURGERY NOTE : 1985 Procedure Information Date/Time: 10/19/23 1335 Procedure: VASECTOMY (Bilateral: Testicle) Location: [place] [address] / [facility] Surgeons: Justus Bean Jr., MD Estimated body [...] and consent discussed: yes. Patient / Responsible Green Party agrees to proceed: yes Patient / Surrogate [...] October 19, 2023 TIME: 1:19 PM CSN: [id number] [facility] BRIEF OP NOTon 10-19-2023 BRIEF OP NOT HNO ID: [id number] Author: Justus Bean Jr., MD Service: Urology Author Type: Physician Type: Brief Op Note Filed: 10/19/2023 2:00 PM Note Text: BRIEF OPERATIVE / PROCEDURE NOTE LOG ID: * No surgery found * Surgery/Procedure Date: * No surgery found * Incision/Procedure Start Time: Incision Close/Procedure End Time: Surgeon(s)/Proceduralis t(s) and Acid Washer Operator(s): * Surgery not found * * Surgery not found * Procedure(s): vasectomy Anesthesia: * No surgery found * Findings: as dx suggests Estimated Blood Loss: 0 ml Specimens: None Complications: None Pre-Op/Pre-Procedure Diagnosis: sterilization Post-Op/Post-Procedure Diagnosis: * No surgery found * same SIGNATURE: Justus Bean Jr, MD PATIENT NAME: @patient name@ DATE: October 19, 2023 TIME: @TALISHA@ PAGER/CONTACT #: [phone] Normal [facility] HISTORY PHYSICALon HISTORY PHYSICAL HNO ID: [id number] Author: Esther Haney APRN.CNP Service: Anesthesiology Author [...] History of marijuana use Quit 10/2016 Schizophrenia ([facility]) Seeing Dr. Vicente Seasonal allergies Tobacco use disorder PAST SURGICAL HISTORY Procedure Laterality Date CIRCUMCISION 08/27/2009 EGD 08/17/14 meat removed from stricture EGD 08/12/2019 foreign body removal EGD FLEXIBLE FOREIGN BODY REMOVAL 04/09/07 [facility] ER, no dilatation ESOPHAGOGASTRODUODENOSC OPY TRANSORAL DIAGNOSTIC 05/13/14 eosinophilic esophagitis,relative stricture ESOPHAGOGASTRODUODENOSC OPY TRANSORAL DIAGNOSTIC 09/30/2014 EGD ESOPHAGOGASTRODUODENOSC OPY TRANSORAL DIAGNOSTIC 06/14/2017 [facility] ER with foreign body removed from esophagus ESOPHAGOGASTRODUODENOSC OPY TRANSORAL DIAGNOSTIC 08/13/2017 [facility] ER with foreign body removal from esophagus [...] days total. (more content not included)... Normal [facility] SURGICAL PATHOLOGYon 023 CASE REPORT Normal [facility] Comment on above: Order Comment: Speci men Type: TISSUE SPECIMENOrdering Facility: [facility] Address: [address] [place] [address] Result Comment: Surg ical Pathology Report Case: [id number] Authorizing Provider: Justus Bean Jr., Collected: 10/19/2023 01:55 PM Ordering Location: [facility] Received: 10/22/2023 03:14 PM Laboratory Pathologist: Debbie Mckoy MD Specimens: A) - VAS DEFERENS RIGHT B) - VAS DEFERENS LEFT Performed By: #### S ####[facility] LABORATORYCLIA [id number] [address] CLINICAL HISTORY Encounter for sterilization Normal [facility] Comment on above: Order Comment: Speci men Type: TISSUE SPECIMENOrdering Facility: [facility] Address: [address] [place] [address] Performed By: #### S ####[facility] LABORATORYCLIA [id number] [address] OF [facility] FINAL DIAGNOSIS Normal [facility] Comment on above: Order Comment: Speci men Type: TISSUE SPECIMENOrdering Facility: [facility] Address: [address] [place] [address] Result Comment: A. R ight vas deferens, vasectomy: -- Segment of vas deferens, completely transected. B. Left vas deferens, vasectomy: -- Segment of vas deferens, completely transected. Performed By: #### S ####[facility] LABORATORYCLIA [id number] [address] FINAL PERFORMING LAB Normal [facility] Comment on above: Order Comment: Speci men Type: TISSUE SPECIMENOrdering Facility: [facility] Address: [address] [place] [address] Result Comment: Diag nostic interpretation performed at [facility], [address] [place] [address] CLIA# [id number] Ward Helper: Ramo Webb M.D. Performed By: #### S ####[facility] LABORATORYCLIA [id number] [address] GROSS DESCRIPTION Normal [facility] Comment on above: Order Comment: Speci men Type: TISSUE SPECIMENOrdering Facility: [facility] Address: [address] [place] [address] Result Comment: A. V DEFERENS RIGHT Received in formalin labeled vas deferens right is a cylindrical white soft segment of tissue measuring 1.8 x 0.4 x 0.4 cm. Pinpoint lumens are present. The specimen is sectioned. A industrial sales representative section is submitted in formalin in 1 cassette. B. VAS DEFERENS LEFT Received in formalin labeled vas deferens left is a cylindrical white soft segment of tissue measuring 1.9 x 0.4 x 0.4 cm. Pinpoint lumens are present. The specimen is sectioned. A industrial sales representative section is submitted in formalin in 1 cassette. Gross examination performed at [facility], [address] [place] [address] KVB October 23, 2023 8:51 AM Performed By: #### S ####[facility] LABORATORYCLIA [id number] [place] [id number] [facility] Ignacio 07-24-2023 CNPN Telephone (AKASC) LYLEJOSAFAT Robi ([id number]) 1985 M Date Time Provider Department 07/24/23 THERESA TERRY NDWYATT During your visit today, we recorded the [...] 02/23/2014 Hepatitis C [B19.20] 04/01/2014 NO SHOW [[id number]] 08/31/2014 07/12/2017 Asthma with status asthmaticus [J45.902] Eosinophilic esophagitis [K20.0] 08/23/2017 Encounter Status:Closed by THERESA TERRY on 07/24/23 [facility] 06-01-2023 [place] Telephone (UROLAG) JOSAFAT ALVARENGA ([id number]) 1985 M Date Time Provider Department 06/01/23 THERSEA TERRY During your visit today, we recorded the following information about you: Roro Robison 06/01/2023 3:45 PM Signed Rescheduled surgery (due to sterilization consent) with Dr Terry to 07/24/23 @ [facility] arrive at 7:00am. Patient notified and surgery information mailed. Roro Ramirez Coord Allergies As of Date: 06/01/2023 Noted Allergy [...] 02/23/2014 Hepatitis C [B19.20] 04/01/2014 NO SHOW [[id number]] 08/31/2014 07/12/2017 Asthma with status asthmaticus [J45.902] Eosinophilic esophagitis [K20.0] 08/23/2017 Encounter Status:Closed by RORO ROBISON on 06/01/23 [facility] CNPN Telephone (UROLAG) LYLEJOSAFAT L ([id number]) 1985 Date Time Provider Department 06/01/23 THERESA TERRY During your visit today, we recorded the following information about you: Roro Robison 06/01/2023 3:18 PM Signed Patient scheduled for surgery with Dr Terry on 06/26/23 @ [facility] arrive at 9:00am. Patient notified and surgery [...] 02/23/2014 Hepatitis C [B19.20] 04/01/2014 NO SHOW [[id number]] 08/31/2014 07/12/2017 Asthma with status asthmaticus [J45.902] Eosinophilic esophagitis [K20.0] 08/23/2017 Encounter Status:Closed by RORO ROBISON on 06/01/23 [facility] No Panel Informationon 04-30 Radiology Result ACTIONABLE Abnormal [facility] 04-27-2023 CNPN Telephone (AKURFL) JOSAFAT ALVARENGA ([id number]) 1985 M Date Time Provider Department 04/27/23 THERESA TERRY During your visit today, we recorded the following information about you: Maria De Jesus Rodas 04/27/2023 3:10 PM Signed Pt confirmed his appt with Dr. Terry in [facility] 06/01/23 @ 2:30. [place] Allergies As of [...] 02/23/2014 Hepatitis C [B19.20] 04/01/2014 NO SHOW [[id number]] 08/31/2014 07/12/2017 Asthma with status asthmaticus [J45.902] Eosinophilic esophagitis [K20.0] 08/23/2017 Encounter Status:Closed by MARIA DE JESUS MCKEON on 04/27/23 [facility] UA DIP, URINE (POC)on 2022 BILIRUBIN UA (POCT) Negative Negative [facility] CLARITY UA (POCT) Clear [facility] COLOR UA (POCT) Yellow [facility] GLUCOSE UA (POCT) Negative Negative mg/dL [facility] HEMOGLOBIN/BLOOD UA (POCT) Negative Negative [facility] KETONE UA (POCT) Negative Negative mg/dL [facility] LEUKOCYTES UA (POCT) Negative Negative [facility] NITRITE UA (POCT) Negative Negative [facility] PH UA (POCT) 5.5 4.5 - 8.0 [facility] Protein Ql (U) Negative Negative mg/dL [facility] SPECIFIC GRAVITY UA (POCT) 1.010 1.005 - 1.030 [facility] UROBILINOGEN UA (POCT) 0.2 E.U./dL Normal E.U./ dL [facility] CT ABDOMEN/PELVIS WITHOUT CO NTRASTon 04-10-2023 [...] S1. 3. Small fat-containing umbilical hernia. Normal [facility] CT Abdomen and Pelvis WO [...] on S1. 3. Small fat-containing umbilical hernia. [facility] Radiology Study observation (narrative) [facility] CT Abdomen and Pelvis WO con trastOrdered By: Fadi Stevens on 04-10-2023 [employer] Work Phone: No Panel Informationon 04-10 Interpretation and review of laboratory results Abnormal [facility] URINALYSIS, MACROon 04-10-20 23 Bilirubin Ql (U) Negative NEGATIVE [facility] Clarity (U) CLEAR CLEAR [facility] Color (U) YELLOW YELLOW [facility] Glucose Test strip (U) [Mass/Vol] Negative NEGATIVE mg/dl [facility] Hemoglobin Ql (U) Negative NEGATIVE [facility] Ketones (U) [Mass/Vol] Negative NEGATIVE mg/d l [facility] Leukocyte esterase Test strip Ql (U) TRACE Abnormal NEGATIVE [facility] Nitrite Ql (U) Negative NEGATIVE [facility] System pH (U) 8.5 [pH] High 5.0 - 7.0 [facility] Protein Ql (U) Negative NEGATIVE mg/dl [facility] Specific gravity (U) [Rel density] 1.010 1.010 - 1.025 [facility] Urobilinogen (U) [Mass/Vol] 0.2 mg/dL [facility] URINE CULTUREon 04-10-2023 Bacteria identified Cx Nom (U) SPECIMEN DESCRIPTION URINE - OTHER UA DIPSTICK LEUKOCYTE POSITIVE TRACE * Result Note: NITRITE NEGATIVE * CULTURE NO GROWTH 2 DAYS * Result Note: Testing performed at [place] [address] * REPORT STATUS 04/12/2023 * Result Note: FINAL * Normal [facility] Comment on above: Performed By: #### A URNC #### [place] [address] URINE MACROSCOPICon 04-10-20 23 Bilirubin Ql (U) Negative Normal NEGATIVE [facility] Comment on above: Performed By: #### U CELESTE, UMAC #### [place] [address] Clarity (U) CLEAR Normal CLEAR [facility] Comment on above: Performed By: #### U CELESTE, UMAC #### [place] [address] Color (U) YELLOW Normal YELLOW [facility] Comment on above: Performed By: #### U CELESET, UMAC #### [place] [address] Glucose Ql (U) Negative Normal NEGATIVE [facility] Comment on above: Performed By: #### U CELESTE, UMAC #### [place] [address] pH (U) 8.5 [pH] High 5.0-7.0 [facility] Comment on above: Performed By: #### U CELESTE, UMAC #### [place] [address] URINE HEMOGLOBIN Negative Normal NEGATIVE [facility] Comment on above: Performed By: #### U CELESTE, UMAC #### [place] [address] URINE KETONE Negative Normal NEGATIVE [facility] Comment on above: Performed By: #### U CELESTE, UMAC #### [place] [address] URINE LEUKOTEST TRACE Abnormal NEGATIVE [facility] Comment on above: Performed By: #### U CELESTE, UMAC #### [place] [address] URINE NITRATES Negative Normal NEGATIVE [facility] Comment on above: Performed By: #### U CELESTE, UMAC #### [place] [address] URINE SPEC GRAVITY 1.010 Normal 1.010-1.025 [facility] Comment on above: Performed By: #### U CELESTE, UMAC #### [place] [address] URINE TOTAL PROTEIN Negative Normal NEGATIVE [facility] Comment on above: Performed By: #### U CELESTE, UMAC #### [place] [address] Urobilinogen Qn (U) 0.2 {Eleazar'U}/dL Normal 0.2-1.0 [facility] Comment on above: Performed By: #### U CELESTE, UMAC #### [place] [address] URINE MICROSCOPICon 04-10-20 23 BACTERIA TRACE Abnormal NEGATIVE [facility] Comment on above: Performed By: #### U CELESTE, UMAC #### [place] [address] CASTS NONE Normal [facility] Comment on above: Performed By: #### U CELESTE, UMAC #### [place] [address] CRYSTAL NONE Normal [facility] Comment on above: Performed By: #### U CELESTE, UMAC #### [place] [address] Epithelial cells LM Ql (Urine sed) 1 TO 5 Normal [facility] Comment on above: Performed By: #### U CELESTE, UMAC #### [place] [address] Mucus Ql (Urine sed) Negative Normal NEGATIVE [facility] Comment on above: Performed By: #### U CELESTE, UMAC #### [place] [address] URINE COMMENT REFLEX CULTURE PER ESTABLISHED CRITERIA. Normal [facility] Comment on above: Performed By: #### U CELESTE, UMAC #### [place] [address] URINE RBC'S Negative Normal NEGATIVE [facility] Comment on above: Performed By: #### U CELESTE, UMAC #### [place] [address] URINE WBC'S 1 TO 5 Normal NEGATIVE [facility] Comment on above: Performed By: #### U CELESTE, UMAC #### [place] [address] Bacteria LM.HPF (Urine sed) [#/Area] TRACE Abnormal NEGATIVE [facility] Casts LM.LPF (Urine sed) [#/Area] NONE NONE /LPF [facility] Crystals LM Nom (Urine sed) NONE NONE [facility] Epithelial cells LM Ql (Urine sed) 1 TO 5 /HPF [facility] Mucus Ql (Urine sed) Negative NEGATIVE [facility] RBC LM.HPF (Urine sed) [#/Area] Negative NEGATIVE /HPF [facility] Urine sediment comments LM Nakul (Urine sed) REFLEX CULTURE PER ESTABLISHED CRITERIA. [facility] WBC LM.HPF (Urine sed) [#/Area] 1 TO 5 NEGATIVE /HPF [facility] NOVEL CORONAVIRUSon 10-20-20 22 NARRATIVE This test was perfor med using isothermal TRACY and has been approved as Emergency Use Authorization (EUA) for the qualitative detection [id number] nucleic acid. Normal [facility] Comment on above: Result Comment: Test ing performed at [place] [address] Performed By: #### C OVID #### [place] [address] SARS-CoV-2 (COVID-19) RNA TRACY+probe Ql (Unsp spec) Not detected Normal NOT DETECTED [facility] Comment on above: Result Comment: [...] #### C OVID #### [place] [address] RAPID FLU Aon 10-20-2022 INFLUENZA A Positive Abnormal NEGATIVE [facility] Comment on above: Performed By: #### R FLUAB #### [place] [address] INFLUENZA B Negative Normal NEGATIVE [facility] Comment on above: Result Comment: TEST ING PERFORMED BY TRACY Testing performed at [facility], [place] [id number] Performed By: #### R FLUAB #### Testing performed at [facility] [address] [place] [address] XR CHEST AP PORTABLEon 10-20 XR CHEST AP PORTABLE EXAMINATION: XR FABIOLA ST AP PORTABLE, 10/20/2022 2:10 PM EST HISTORY: cough wheezing COMPARISON: None. TECHNIQUE: Chest x-ray: One view. FINDINGS: Lungs are clear. The cardiomediastinal configuration is within normal limits. No acute bony abnormalities. IMPRESSION: No acute cardiopulmonary abnormalities. Normal [facility] MR Brain and Pituitary and S anita turcica WO and W contrast Jennifer 04-06-2022 IMPRESSION: [...] up study in 6 months is recommended. [facility] Radiology Study observation (narrative) [facility] MR Brain and Pituitary and S anita palmer WO and W contrast IVOrdered By: Christa Mcdowell on 04-06-2022 [facility] Work Phone: MRI PITUITARY WITH AND [...] 03-29-2022 Amorphous sediment LM Ql (Urine sed) [facility] Appearance (U) CLEAR [facility] Bacteria LM Ql (Urine sed) [facility] Bilirubin Ql (U) Negative [facility] Casts LM.LPF (Urine sed) [#/Area] [facility] Color (U) YELLOW [facility] Crystals LM Nom (Urine sed) [facility] Epithelial cells.squamous LM.HPF (Urine sed) [#/Area] [facility] Flow cytometry specialist review Nakul (Unsp spec) [Interp] [facility] Glucose Auto test strip (U) [Mass/Vol] Negative mg/dL [facility] Interpretation and review of laboratory results Abnormal [facility] Ketones [Mass/Vol] Negative mg/dL [facility] Leukocyte esterase Qn (U) [facility] Leukocyte esterase Test strip Ql (U) Negative [facility] Nitrite Ql (U) Negative [facility] pH (U) 7.5 [pH] Abnormal [facility] Protein Ql (U) Negative mg/dL [facility] RBC LM.HPF (Urine sed) [#/Area] [facility] RBC Ql (U) TRACE-INTACT [facility] Specific gravity (U) [Rel density] 1.015 [facility] Transitional cells LM Ql (Urine sed) [facility] Urobilinogen Qn (U) 1.0 [facility] WBC LM.HPF (Urine sed) [#/Area] [facility] CT ABDOMEN/PELVIS WITHOUT CO NTRASTon 03-22-2022 CT [...] 4.0 to 15.2 Unit: ng/mL PERFORMED AT [facility] Performed By: #### L PROL #### Testing performed at [facility] [address] [facility] [place] [address] [place] [address] POCT URINALYSIS DIPSTICK AUT OMATED W/O SCOPon 03-07-2022 Amorphous sediment LM Ql (Urine sed) [facility] Appearance (U) clear [facility] Bacteria LM Ql (Urine sed) [facility] Bilirubin Ql (U) Negative [facility] Casts LM.LPF (Urine sed) [#/Area] [facility] Color (U) yellow [facility] Crystals LM Nom (Urine sed) [facility] Epithelial cells.squamous LM.HPF (Urine sed) [#/Area] [facility] Flow cytometry specialist review Nakul (Unsp spec) [Interp] [facility] Glucose Auto test strip (U) [Mass/Vol] Negative mg/dL [facility] Ketones [Mass/Vol] Negative mg/dL [facility] Leukocyte esterase Qn (U) [facility] Leukocyte esterase Test strip Ql (U) TRACE [facility] Nitrite Ql (U) Negative [facility] pH (U) 6.5 [pH] [facility] Protein Ql (U) Negative mg/dL [facility] RBC LM.HPF (Urine sed) [#/Area] [facility] RBC Ql (U) Negative [facility] Specific gravity (U) [Rel density] 1.010 [facility] Transitional cells LM Ql (Urine sed) [facility] Urobilinogen Qn (U) 0.2 [facility] WBC LM.HPF (Urine sed) [#/Area] [facility] US Kidneyon 03-03-2022 IMPRESSION: 1. Suboptimal visualization [...] ureteral jets are seen within bladder lumen. [facility] Radiology Study observation (narrative) [facility] US KidneyOrdered By: Izabela Tilley on 03-03-2022 [facility] Work Phone: US RENAL RETROPERITONEALon 0 [...] 1.5 to 12.4 Unit: mIU/mL PERFORMED AT [facility] Performed By: #### L LH, LFSH, LPROL #### [place] [address] #### HH, UNKSO #### Testing performed at [address] [address] LUTEINIZING HORMONEon 2021 LH 5.5 Normal [facility] Comment on above: Result Comment: Refe rence range: 1.7 to 8.6 Unit: mIU/mL PERFORMED AT [facility] Performed By: #### L LH, LFSH, LPROL #### Testing performed at [address] [address] #### HH, UNKSO #### [place] [address] PROLACTINon 02-23-2022 PROLACTIN 64.4 High [facility] Comment on above: Result Comment: Refe rence range: 4.0 to 15.2 Unit: ng/mL PERFORMED AT [facility] Performed By: #### L LH, LFSH, LPROL #### Testing performed at [address] [place] [address] #### HH, UNKSO #### Testing performed at [address] [address] HGB/HCTon 02-22-2022 Hematocrit (Bld) [Volume fraction] 49.6 % Normal 42.0-52.0 [facility] Comment on above: Performed By: #### L LH, LFSH, LPROL #### Testing performed at [address] [address] #### HH, UNKSO #### Testing performed at [address] [address] Hemoglobin (Bld) [Mass/Vol] 17.9 g/dL Normal 14.0-18.0 [facility] Comment on above: Performed By: #### L LH, LFSH, LPROL #### Testing performed at [address] [address] #### HH, UNKSO #### Testing performed at [address] [address] SENDOUT TESTon 02-22-2022 SENDOUT TEST TESTOSTERONE [id number] Normal [facility] Comment on above: Performed By: #### L LH, LFSH, LPROL #### Testing performed at [address] [address] #### HH, UNKSO #### Testing performed at [address] [address] POCT URINALYSIS DIPSTICK AUT OMATED W/O SCOPon 02-21-2022 Amorphous sediment LM Ql (Urine sed) [facility] Appearance (U) clear [facility] Bacteria LM Ql (Urine sed) [facility] Bilirubin Ql (U) SMALL [facility] Casts LM.LPF (Urine sed) [#/Area] [facility] Color (U) dark yellow [facility] Crystals LM Nom (Urine sed) [facility] Epithelial cells.squamous LM.HPF (Urine sed) [#/Area] [facility] Flow cytometry specialist review Nakul (Unsp spec) [Interp] [facility] Glucose Auto test strip (U) [Mass/Vol] Negative mg/dL [facility] Ketones [Mass/Vol] TRACE mg/dL [facility] Leukocyte esterase Qn (U) [facility] Leukocyte esterase Test strip Ql (U) TRACE [facility] Nitrite Ql (U) Negative [facility] pH (U) 6.0 [pH] [facility] Protein Ql (U) 30 mg/dL [facility] RBC LM.HPF (Urine sed) [#/Area] [facility] RBC Ql (U) TRACE-INACT [facility] Specific gravity (U) [Rel density] 1.015 [facility] Transitional cells LM Ql (Urine sed) [facility] Urobilinogen Qn (U) 0.2 [facility] WBC LM.HPF (Urine sed) [#/Area] [facility] URINALYSIS, MACROon 07-16-20 19 Bilirubin Ql (U) Negative NEGATIVE [employer] Clarity (U) CLEAR CLEAR [employer] [facility] Color (U) LIGHT YELLOW Abnormal YELLOW [facility] [employer] Glucose Test strip (U) [Mass/Vol] Negative NEGATIVE mg/dl [facility] [employer] Hemoglobin Ql (U) Negative NEGATIVE [facility] [employer] Interpretation and review of laboratory results Abnormal [facility] Ketones (U) [Mass/Vol] Negative NEGATIVE mg/d l [facility] [employer] Leukocyte esterase Test strip Ql (U) Negative NEGATIVE [facility] [employer] Comment on above: Testing performed at [facility], [place], [place] [address] Nitrite Ql (U) Negative NEGATIVE [employer] [facility] pH (U) 5.5 [pH] [facility] Protein Ql (U) Negative NEGATIVE mg/dl [facility] Specific gravity (U) [Rel density] 1.015 [facility] Urobilinogen (U) [Mass/Vol] 0.2 [facility] Microbiology: Culture, Deep Woundon 10-05-2017 CUDW . Invalid Interpretation Code [facility] Work Phone: Microbiology: (P) Culture, D eep Woundon 10-03-2017 CUDW . Invalid Interpretation Code [facility] Work Phone: Microbiology: (P) Culture, D eep Woundon 10-01-2017 CUDW . Invalid Interpretation Code [facility] Work Phone: Microbiology: (P) Culture, D eep Woundon 09-29-2017 CUDW . Invalid Interpretation Code [facility] Work Phone: Lab Report: CBC W/Diff, Auto matedon 09-28-2017 Absolute Neut 3.7 X10 3/UL Invalid Interpretation Code 2.0-7.7 [facility] Work Phone: Basophils/100 WBC Auto (Bld) 1.0 % Invalid Interpretation Code 0-1 [facility] Work Phone: Eosinophils/100 leukocytes 11.7 % High 0-5 [facility] Work Phone: Erythrocyte distribution width Auto Ratio (RBC) 12.8 % Invalid Interpretation Code 11.6-14.6 [facility] Work Phone: Erythrocytes (RBC) 3.85 10*6/uL Low 4.6-6.[address] [facility] Work Phone: Hematocrit (HCT) 35.8 % Low 40-54 [facility] Work Phone: Hemoglobin mass conc (Bld) 12.3 g/dL Low 13.0-16.5 [facility] Work Phone: Immature granulocytes/100 WBC (Bld) 0.800 % Invalid Interpretation Code 0.0-0.9 [facility] Work Phone: Lymphocytes 1.98 X10 3/UL Invalid Interpretation Code 0.83-4.51 [facility] Work Phone: Lymphocytes/100 leukocytes 27.2 % Invalid Interpretation Code 19-41 [facility] Work Phone: MCH 31.9 pg Invalid Interpretation Code 27.0-32.0 [facility] Work Phone: MCHC mass conc (RBC) 34.4 G/GL Invalid Interpretation Code 32-36 [facility] Work Phone: MCV 93.0 fL Invalid Interpretation Code 80-94 [facility] Work Phone: Monocytes/100 leukocytes 9.1 % Invalid Interpretation Code 0-10 [facility] Work Phone: Neutrophils/100 WBC Auto (Bld) 50.2 % Invalid Interpretation Code 47-70 [facility] Work Phone: Platelets [phone] 10*3/mm3 Invalid Interpretation Code 150-450 [facility] Work Phone: PMV by Caitlin 9.3 fL Invalid Interpretation Code 6.2-12.0 [facility] Work Phone: [phone] RDW SD 42.5 fL Invalid Interpretation Code 35.1-43.9 [facility] Work Phone: [phone] WBC (Leukocytes) 7.3 10*3/uL Invalid Interpretation Code 4.4-11.0 [facility] Work Phone: [phone] Microbiology: (P) Culture, D eep Woundon 09-28-2017 CUDW . Invalid Interpretation Code [facility] Work Phone: [phone] Lab Report: Basic Metabolic Profile (BMP)on 09-27-2017 Anion gap 5 mmol/L Invalid Interpretation Code 5-15 [facility] Work Phone: [phone] BUN/Creatinine Ratio 7.1 RATIO Low 10-20 [facility] Work Phone: [phone] Calcium 8.5 mg/dL Invalid Interpretation Code 8.5-10.1 [facility] Work Phone: [phone] Chloride 108 mmol/L High 98-107 [facility] Work Phone: [phone] CO2 28.0 mmol/L Invalid Interpretation Code 21.0-32.0 [facility] Work Phone: [phone] Creatinine 0.71 mg/dL Invalid Interpretation Code 0.70-1.30 [facility] Work Phone: [phone] Creatinine 126.13 mL/min Invalid Interpretation Code [facility] Work Phone: [phone] eGFR (non-black) 164 mL/min/{1.73_m2} Invalid Interpretation Code >60 [facility] Work Phone: [phone] eGFR (non-black) 135 mL/min/{1.73_m2} Invalid Interpretation Code >60 [facility] Work Phone: [phone] Glucose mass conc 89 mg/dL Invalid Interpretation Code 70-110 [facility] Work Phone: [phone] Potassium molar conc 3.7 mmol/L Invalid Interpretation Code 3.5-5.1 [facility] Work Phone: [phone] Sodium 141 mmol/L Invalid Interpretation Code 136-145 [facility] Work Phone: [phone] Urea nitrogen 5 mg/dL Low 7-18 [facility] Work Phone: [phone] Lab Report: CBC-Complete Blo od Cnt No Diffon 09-27-2017 Erythrocyte distribution width Auto Ratio (RBC) 13.1 % Invalid Interpretation Code 11.6-14.6 [facility] Work Phone: [phone] Erythrocytes (RBC) 4.11 10*6/uL Low 4.6-6.[address] [facility] Work Phone: [phone] Hematocrit (HCT) 39.2 % Low 40-54 [facility] Work Phone: [phone] Hemoglobin mass conc (Bld) 13.2 g/dL Invalid Interpretation Code 13.0-16.5 [facility] Work Phone: [phone] MCH 32.1 pg High 27.0-32.0 [facility] Work Phone: [phone] MCHC mass conc (RBC) 33.7 G/GL Invalid Interpretation Code 32-36 [facility] Work Phone: [phone] MCV 95.4 fL High 80-94 [facility] Work Phone: [phone] Platelets 211 10*3/mm3 Invalid Interpretation Code 150-450 [facility] Work Phone: [phone] PMV by Caitlin 9.3 fL Invalid Interpretation Code 6.2-12.0 [facility] Work Phone: [phone] RDW SD 45.4 fL High 35.1-43.9 [facility] Work Phone: [phone] WBC (Leukocytes) 9.7 10*3/uL Invalid Interpretation Code 4.4-11.0 [facility] Work Phone: [phone] Lab Report: Prealbuminon Prealbumin 10.6 mg/dL Low 20.0-40.0 [facility] Work Phone: [phone] Microbiology: (P) Culture, D eep Woundon 09-27-2017 CUDW Wound CultureNo growth-Final to follow Invalid Interpretation Code [facility] Work Phone: Lab Report: Liver Profileon 09-26-2017 Alanine aminotransferase (ALT) 53 U/L Invalid Interpretation Code 12-78 [facility] Work Phone: [phone] Albumin 2.7 g/dL Low 3.4-5.0 [facility] Work Phone: [phone] Alkaline phosphatase (ALP) 83 U/L Invalid Interpretation Code 45-117 [facility] Work Phone: [phone] Aspartate aminotransferase (AST) 35 U/L Invalid Interpretation Code 15-37 [facility] Work Phone: [phone] Bilirubin (direct) 0.19 mg/dL Invalid Interpretation Code 0.00-0.30 [facility] Work Phone: [phone] Bilirubin (total) 1.00 mg/dL Invalid Interpretation Code 0.20-1.00 [facility] Work Phone: [phone] Globulin 4.1 g/dL Invalid Interpretation Code 2.2-4.2 [facility] Work Phone: [phone] Protein 6.8 g/dL Invalid Interpretation Code 6.4-8.2 [facility] Work Phone: Lab Report: MRSA Wound DNA b y PCRon 09-26-2017 INR Coag RelTime (Bld) Negative Invalid Interpretation Code Negative [facility] Work Phone: Surgical Pathologyon 017 Surgical Pathology [id number] [facility] PATHOLOGY AND LABORATORY MEDICINE [address] [place] [address] FINAL SURGICAL PATHOLOGY REPORT NAME: JOSAFAT ALVARENGA .O.B.: 1985 32 Y M BILLING NO.: [id number]: [id number] 1ECB 27 PROCEDURE 09/18/2017 DATE:SURGEON: MARCI BUTLER MD RECEIVED 09/18/2017 DATE:ATTENDING: NELLY CAGLE MD REPORT DATE: 09/21/2017 COPIES TO: DIAGNOSIS:ESOPHAG US, BIOPSIES - FRAGMENT OF SQUAMOUS MUCOSA WITH MARKEDLYINCREASED EOSINOPHILS AND REACTIVE CHANGES. 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 Clinical correlation is required.SETH/SETH CRAWLEY M.D. CLINICAL INFORMATION: Acute dysphagia, removal of foreign body inesophagusSPECIMEN: ESOPHAGUS BIOPSY GROSS DESCRIPTION:Esophageal biopsiesReceived in formalin are fragments of tong tissue which aggregate to0.3 x 0.3 cm. The specimen is entirely submitted in a single cassette. (bits ns, 1) JCK/MCDDisclaimer: The following statement applies to allimmunohistochemistry , in situ hybridization, molecular studies, andimmunofluorescence testing.The use of one or more reagents in the above tests is regulated as ananalyte specific reagent (ASR). These tests were developed and theirperformance characteristics determined by the [facility]. They have not been cleared by [...] false negativity on decalcified specimens.Professional Performing Location: [address] [address]. DEPARTMENT OF PATHOLOGY AND LABORATORY MEDICINE [place], [place] [address] Normal [facility] Comment on above: Performed By: #### S UR ####Performing Lab is in report Vital Signs Date Time Vital Sign Value Performing Clinician Facility 07-23-2025 13:26-0400 Body temperature 97.9 [degF] No Primary Care Physician [facility] 07-23-2025 13:26-0400 Diastolic blood pressure 93 mm[Hg] No Primary Care Physician [facility] 07-23-2025 13:26-0400 Heart rate 73 /min No Primary Care Physician [facility] 07-23-2025 13:26-0400 Respiratory rate 16 /min No Primary Care Physician [facility] 07-23-2025 13:26-0400 SaO2% (BldA) [Mass fraction] 100 % No Primary Care Physician [facility] 07-23-2025 13:26-0400 Systolic blood pressure 119 mm[Hg] No Primary Care Physician [facility] 07-23-2025 10:20-0400 Body height 170.18 cm No Primary Care Physician [facility] 07-23-2025 10:20-0400 Body mass index (BMI) [Ratio] 27.1 kg/m2 No Primary Care Physician [facility] 07-23-2025 10:20-0400 Body weight 78.8 kg No Primary Care Physician [facility] 07-20-2025 14:28-0400 Body height 170.18 cm No Primary Care Physician [facility] 07-20-2025 14:28-0400 Body mass index (BMI) [Ratio] 27.3 kg/m2 No Primary Care Physician [facility] 07-20-2025 14:28-0400 Body temperature 97.9 [degF] No Primary Care Physician [facility] 07-20-2025 14:28-0400 Body weight 79.37 kg No Primary Care Physician [facility] 07-20-2025 14:28-0400 Diastolic blood pressure 82 mm[Hg] No Primary Care Physician [facility] 07-20-2025 14:28-0400 Heart rate 93 /min No Primary Care Physician [facility] 07-20-2025 14:28-0400 Respiratory rate 18 /min No Primary Care Physician [facility] 07-20-2025 14:28-0400 SaO2% (BldA) [Mass fraction] 96 % No Primary Care Physician [facility] 07-20-2025 14:28-0400 Systolic blood pressure 122 mm[Hg] No Primary Care Physician [facility] 07-15-2025 21:13-0400 Body height 170.18 cm No Primary Care Physician [facility] 07-15-2025 21:13-0400 Body mass index (BMI) [Ratio] 27.1 kg/m2 No Primary Care Physician [facility] 07-15-2025 21:13-0400 Body temperature 97.4 [degF] No Primary Care Physician [facility] 07-15-2025 21:13-0400 Body weight 78.42 kg No Primary Care Physician [facility] 07-15-2025 21:13-0400 Diastolic blood pressure 94 mm[Hg] No Primary Care Physician [facility] 07-15-2025 21:13-0400 Heart rate 87 /min No Primary Care Physician [facility] 07-15-2025 21:13-0400 Respiratory rate 22 /min No Primary Care Physician [facility] 07-15-2025 21:13-0400 SaO2% (BldA) [Mass fraction] 98 % No Primary Care Physician [facility] 07-15-2025 21:13-0400 Systolic blood pressure 146 mm[Hg] No Primary Care Physician [facility] 07-08-2025 22:34-0400 Body temperature 98.2 [degF] No Primary Care Physician [facility] 07-08-2025 22:34-0400 Diastolic blood pressure 84 mm[Hg] No Primary Care Physician [facility] 07-08-2025 22:34-0400 Heart rate 69 /min No Primary Care Physician [facility] 07-08-2025 22:34-0400 Respiratory rate 18 /min No Primary Care Physician [facility] 07-08-2025 22:34-0400 SaO2% (BldA) [Mass fraction] 100 % No Primary Care Physician [facility] 07-08-2025 22:34-0400 Systolic blood pressure 129 mm[Hg] No Primary Care Physician [facility] 07-08-2025 20:40-0400 Body height 170.18 cm No Primary Care Physician [facility] 07-08-2025 20:40-0400 Body mass index (BMI) [Ratio] 27 kg/m2 No Primary Care Physician [facility] 07-08-2025 20:40-0400 Body weight 78.27 kg No Primary Care Physician [facility] 05-01-2025 21:25-0400 Diastolic blood pressure 74 mm[Hg] No Primary Care Physician [facility] 05-01-2025 21:25-0400 Heart rate 92 /min No Primary Care Physician [facility] 05-01-2025 21:25-0400 Respiratory rate 16 /min No Primary Care Physician [facility] 05-01-2025 21:25-0400 SaO2% (BldA) [Mass fraction] 97 % No Primary Care Physician [facility] 05-01-2025 21:25-0400 Systolic blood pressure 130 mm[Hg] No Primary Care Physician [facility] 05-01-2025 19:26-0400 Body height 170.18 cm No Primary Care Physician [facility] 05-01-2025 19:26-0400 Body mass index (BMI) [Ratio] 27.7 kg/m2 No Primary Care Physician [facility] 05-01-2025 19:26-0400 Body temperature 97.6 [degF] No Primary Care Physician [facility] 05-01-2025 19:26-0400 Body weight 80.4 kg No Primary Care Physician [facility] 03-12-2025 05:14-0400 Body temperature 98.1 [degF] No Primary Care Physician [facility] 03-12-2025 05:14-0400 Diastolic blood pressure 86 mm[Hg] No Primary Care Physician [facility] 03-12-2025 05:14-0400 Heart rate 69 /min No Primary Care Physician [facility] 03-12-2025 05:14-0400 Respiratory rate 14 /min No Primary Care Physician [facility] 03-12-2025 05:14-0400 SaO2% (BldA) [Mass fraction] 99 % No Primary Care Physician [facility] 03-12-2025 05:14-0400 Systolic blood pressure 134 mm[Hg] No Primary Care Physician [facility] 03-12-2025 03:36-0400 Body mass index (BMI) [Ratio] 28.5 kg/m2 No Primary Care Physician [facility] 03-12-2025 03:36-0400 Body weight 82.7 kg No Primary Care Physician [facility] 02-22-2025 07:08-0400 Diastolic Blood Pressure Non-Invasive 69 mm[Hg] JERAMIE BRUNER MD [address] [place] [address] 02-22-2025 07:08-0400 Heart rate 85 /min JERAMIE BRUNER MD [address] [place] [address] 02-22-2025 07:08-0400 Respiratory rate 14 /min JERAMIE BRUNER MD [address] [place] [address] 02-22-2025 07:08-0400 Systolic Blood Pressure Non-Invasive 106 mm[Hg] JERAMIE BRUNER MD [address] [place] [address] 02-22-2025 04:08-0400 Diastolic Blood Pressure Non-Invasive 76 mm[Hg] JERAMIE BRUNER MD [address] [place] [address] 02-22-2025 04:08-0400 Heart rate 74 /min JERAMIE BRUNER MD [address] [place] [address] 02-22-2025 04:08-0400 Respiratory rate 15 /min JERAMIE BRUNER MD [address] [place] [address] 02-22-2025 04:08-0400 Systolic Blood Pressure Non-Invasive 122 mm[Hg] JERAMIE BRUNER MD [address] [place] [address] 02-22-2025 02:10-0400 Diastolic Blood Pressure Non-Invasive 85 mm[Hg] JERAMIE BRUNER MD [facility] 02-22-2025 02:10-0400 Heart rate 78 /min JERAMIE BRUNER MD [facility] 02-22-2025 02:10-0400 Respiratory rate 18 /min JERAMIE BRUNER MD [facility] 02-22-2025 02:10-0400 Systolic Blood Pressure Non-Invasive 133 mm[Hg] JERAMIE BRUNER MD [facility] 02-21-2025 23:49-0400 Body temperature 97.34 [degF] JERAMIE BRUNER MD [facility] 02-21-2025 23:49-0400 Body weight 79.1 kg JERAMIE BRUNER MD [facility] 01-27-2025 16:18-0400 Body height 170.2 cm Fauzia Sorenson PA-C Work Phone: [facility] 01-27-2025 16:18-0400 Body mass index (BMI) [Ratio] 26.63 kg/m2 Fauzia Sorenson PA-C Work Phone: [facility] 01-27-2025 16:18-0400 Body temperature 98.29 [degF] Fauzia Sorenson PA-C Work Phone: [facility] 01-27-2025 16:18-0400 Body weight 77.11 kg Fauzia Sorenson PA-C Work Phone: [facility] 01-27-2025 16:18-0400 Diastolic blood pressure 74 mm[Hg] Fauzia Sorenson PA-C Work Phone: [facility] 01-27-2025 16:18-0400 Heart rate 112 /min Fauzia Sorenson PA-C Work Phone: [facility] 01-27-2025 16:18-0400 Respiratory rate 14 /min Fauzia Sorenson PA-C Work Phone: [facility] 01-27-2025 16:18-0400 SaO2% (BldA) [Mass fraction] 99 % Fauzia Sorenson PA-C Work Phone: [facility] 01-27-2025 16:18-0400 Systolic blood pressure 118 mm[Hg] Fauzia Sorenson PA-C Work Phone: [facility] 01-05-2025 19:09-0500 Body mass index (BMI) [Ratio] 26.5 kg/m2 No Primary Care Physician [facility] 01-05-2025 19:09-0500 Body temperature 98 [degF] No Primary Care Physician [facility] 01-05-2025 19:09-0500 Body weight 76.88 kg No Primary Care Physician [facility] 01-05-2025 19:09-0500 Diastolic blood pressure 85 mm[Hg] No Primary Care Physician [facility] 01-05-2025 19:09-0500 Heart rate 93 /min No Primary Care Physician [facility] 01-05-2025 19:09-0500 Respiratory rate 16 /min No Primary Care Physician [facility] 01-05-2025 19:09-0500 SaO2% (BldA) [Mass fraction] 98 % No Primary Care Physician [facility] 01-05-2025 19:09-0500 Systolic blood pressure 124 mm[Hg] No Primary Care Physician [facility] 11-25-2024 11:36-0500 Blood Pressure Location FROYLAN HANSON MD [facility] 11-25-2024 11:36-0500 Blood Pressure Method FROYLAN HANSON MD [facility] 11-25-2024 11:36-0500 Body temperature 97.88 [degF] FROYLAN HANSON MD [facility] 11-25-2024 11:36-0500 Body weight 72.7 kg FROYLAN HANSON MD [facility] 11-25-2024 11:36-0500 Diastolic Blood Pressure Non-Invasive 87 mm[Hg] FROYLAN HANSON MD [facility] 11-25-2024 11:36-0500 Heart rate 96 /min FROYLAN HANSON MD [facility] 11-25-2024 11:36-0500 Respiratory rate 18 /min FROYLAN HANSON MD [facility] 11-25-2024 11:36-0500 Systolic Blood Pressure Non-Invasive 127 mm[Hg] FROYLAN HANSON MD [facility] 10-28-2024 15:31-0500 Body mass index (BMI) [Ratio] 25.37 kg/m2 Fauzia Sorenson PA-C Work Phone: [facility] 10-28-2024 15:31-0500 Body weight 73.48 kg Fauzia Sorenson PA-C Work Phone: [facility] 10-28-2024 15:31-0500 Diastolic blood pressure 85 mm[Hg] Fauzia Sorenson PA-C Work Phone: [facility] 10-28-2024 15:31-0500 Heart rate 81 /min Fauzia Sorenson PA-C Work Phone: [facility] 10-28-2024 15:31-0500 SaO2% (BldA) [Mass fraction] 97 % Fauzia Sorenson PA-C Work Phone: [facility] 10-28-2024 15:31-0500 Systolic blood pressure 124 mm[Hg] Fauzia Sorenson PA-C Work Phone: [facility] 08-28-2024 16:52-0400 Body mass index (BMI) [Ratio] 26.41 kg/m2 Comfort Rincon APRN.[employer] Work Phone: [facility] 08-28-2024 16:52-0400 Body temperature 96.21 [degF] Comfort Rincon INC[employer]ATOR [employer]ER.[employer] Work Phone: [facility] 08-28-2024 16:52-0400 Body weight 76.5 kg Comfort Rincon INCINERATOR PLANT [employer]ER.[employer] Work Phone: [facility] 08-28-2024 16:52-0400 Diastolic blood pressure 100 mm[Hg] Comfort Rincon INCINERATOR PLANT LAB[employer]ER.[employer]ATCHER Work Phone: [facility] 08-28-2024 16:52-0400 Heart rate 89 /min Comfort Rincon INCINERATOR PLANT LAB[employer]ER.[employer]PATCHER Work Phone: [facility] 08-28-2024 16:52-0400 Respiratory rate 24 /min Comfort Rincon INCINERATOR PLANT LAB[employer]ER.[employer]PATCHER Work Phone: [facility] 08-28-2024 16:52-0400 SaO2% (BldA) [Mass fraction] 100 % Comfort Rincon INCINERATOR PLANT LAB[employer]ER.[employer]ATCH[employer] Work Phone: [facility] 08-28-2024 16:52-0400 Systolic blood pressure 140 mm[Hg] Comfort Rincon INCINERATOR PLANT LAB[employer]ER.[employer]ATCH[employer] Work Phone: [facility] 07-29-2024 14:44-0400 Body height 170.2 cm Fauzia Sorenson PA-C Work Phone: [facility] 07-29-2024 14:44-0400 Body mass index (BMI) [Ratio] 26.78 kg/m2 Fauzia Sorenson PA-C Work Phone: [facility] 07-29-2024 14:44-0400 Body temperature 98.29 [degF] Fauzia Sorenson PA-C Work Phone: [facility] 07-29-2024 14:44-0400 Body weight 77.56 kg Fauzia Sorenson PA-C Work Phone: [facility] 07-29-2024 14:44-0400 Diastolic blood pressure 82 mm[Hg] Fauzia Sorenson PA-C Work Phone: [facility] 07-29-2024 14:44-0400 Heart rate 98 /min Fauzia Sorenson PA-C Work Phone: [facility] 07-29-2024 14:44-0400 Respiratory rate 16 /min Fauzia Sorenson PA-C Work Phone: [facility] 07-29-2024 14:44-0400 SaO2% (BldA) [Mass fraction] 95 % Fauzia Sorenson PA-C Work Phone: [facility] 07-29-2024 14:44-0400 Systolic blood pressure 122 mm[Hg] Fauzia Sorenson PA-C Work Phone: [facility] 07-15-2024 13:48-0400 Body height 170.2 cm Fauzia Sorenson PA-C Work Phone: [facility] 07-15-2024 13:48-0400 Body mass index (BMI) [Ratio] 26.94 kg/m2 Fauzia Sorenson PA-C Work Phone: [facility] 07-15-2024 13:48-0400 Body temperature 97.59 [degF] Fauzia Sorenson PA-C Work Phone: [facility] 07-15-2024 13:48-0400 Body weight 78.02 kg Fauzia Sorenson PA-C Work Phone: [facility] 07-15-2024 13:48-0400 Diastolic blood pressure 84 mm[Hg] Fauzia Sorenson PA-C Work Phone: [facility] 07-15-2024 13:48-0400 Heart rate 110 /min Fauzia Sorenson PA-C Work Phone: [facility] 07-15-2024 13:48-0400 Respiratory rate 14 /min Fauzia Sorenson PA-C Work Phone: [facility] 07-15-2024 13:48-0400 SaO2% (BldA) [Mass fraction] 95 % Fauzia Sorenson PA-C Work Phone: [facility] 07-15-2024 13:48-0400 Systolic blood pressure 118 mm[Hg] Fauzia Sorenson PA-C Work Phone: [facility] 04-29-2024 13:14-0400 Body mass index (BMI) [Ratio] 29.04 kg/m2 [facility] INC[employer]ATOR [employer]ER.[employer] Work Phone: [facility] 04-29-2024 13:14-0400 Body temperature 97.3 [degF] [facility] INC[employer]ATOR [employer]ER.[employer]ATCH[employer] Work Phone: [facility] 04-29-2024 13:14-0400 Body weight 84.1 kg [facility] INC[employer]ATOR [employer]ER.[employer] Work Phone: [facility] 04-29-2024 13:14-0400 Diastolic blood pressure 86 mm[Hg] [facility] INC[employer]ERATOR [employer]ER.[employer]ATCHER Work Phone: [facility] 04-29-2024 13:14-0400 Heart rate 94 /min [facility] INC[employer]ATOR [employer]ER.[employer]ATCHER Work Phone: [facility] 04-29-2024 13:14-0400 Respiratory rate 16 /min [facility] INC[employer]ATOR [employer]ER.[employer]PATCHER Work Phone: [facility] 04-29-2024 13:14-0400 SaO2% (BldA) [Mass fraction] 97 % [facility] INC[employer]ERATOR [employer]ER.[employer]PATCHER Work Phone: [facility] 04-29-2024 13:14-0400 Systolic blood pressure 152 mm[Hg] [facility] INC[employer]ERATOR [employer]ER.[employer]PATCHER Work Phone: [facility] 04-04-2024 15:58-0400 Body mass index (BMI) [Ratio] 29 kg/m2 Benedict Berg INC[employer]ERATOR [employer]ER.[employer]PATCHER Work Phone: [facility] 04-04-2024 15:58-0400 Body temperature 97.11 [degF] Benedict Berg INCINERATOR [employer] LAB[employer]ER.[employer]PATCHER Work Phone: [facility] 04-04-2024 15:58-0400 Body weight 84 kg Benedict Berg INCINERATOR [employer]ER.[employer]PATCHER Work Phone: [facility] 04-04-2024 15:58-0400 Diastolic blood pressure 86 mm[Hg] Benedict Berg INCINERATOR [employer] LAB[employer]ER.[employer]PATCHER Work Phone: [facility] 04-04-2024 15:58-0400 Heart rate 89 /min Benedict Berg INCINERATOR [employer] LAB[employer]ER.[employer]PATCHER Work Phone: [facility] 04-04-2024 15:58-0400 Respiratory rate 18 /min Benedict Berg INCINERATOR [employer] LAB[employer]ER.[employer]PATCHER Work Phone: [facility] 04-04-2024 15:58-0400 SaO2% (BldA) [Mass fraction] 97 % Benedict Berg INCINERATOR [employer] LAB[employer]ER.[employer]PATCHER Work Phone: [facility] 04-04-2024 15:58-0400 Systolic blood pressure 158 mm[Hg] Benedict Berg INCINERATOR [employer]ER.[employer]PATCHER Work Phone: [facility] 03-25-2024 12:49-0400 Body mass index (BMI) [Ratio] 28.24 kg/m2 Krislyn Aberegg PA Work Phone: [facility] 03-25-2024 12:49-0400 Body temperature 98.49 [degF] Krislyn Aberegg PA Work Phone: [facility] 03-25-2024 12:49-0400 Body weight 81.8 kg Krislyn Aberegg PA Work Phone: [facility] 03-25-2024 12:49-0400 Diastolic blood pressure 84 mm[Hg] Krislyn Aberegg PA Work Phone: [facility] 03-25-2024 12:49-0400 Heart rate 82 /min Krislyn Aberegg PA Work Phone: [facility] 03-25-2024 12:49-0400 Respiratory rate 16 /min Krislyn Aberegg PA Work Phone: [facility] 03-25-2024 12:49-0400 SaO2% (BldA) [Mass fraction] 97 % Krislyn Aberegg PA Work Phone: [facility] 03-25-2024 12:49-0400 Systolic blood pressure 122 mm[Hg] Winnie CASTRO Work Phone: [facility] 03-17-2024 11:52-0400 Body height 170 cm GILL BAXTER MD [facility] 03-17-2024 11:52-0400 Body temperature 98.42 [degF] GILL BAXTER MD [facility] 03-17-2024 11:52-0400 Body weight 82 kg GILL BAXTER MD [facility] 03-17-2024 11:52-0400 Diastolic Blood Pressure Non-Invasive 92 mm[Hg] GILL BAXTER MD [facility] 03-17-2024 11:52-0400 Heart rate 89 /min GILL BAXTER MD [facility] 03-17-2024 11:52-0400 Respiratory rate 18 /min GILL BAXTER MD [facility] 03-17-2024 11:52-0400 Systolic Blood Pressure Non-Invasive 133 mm[Hg] GILL BAXTER MD [facility] 02-28-2024 10:23-0400 Body height 170.2 cm Sonia Sharphik PA-C Work Phone: [facility] 02-28-2024 10:23-0400 Heart rate 90 /min Sonia Kovachik PA-C Work Phone: [facility] 02-28-2024 10:23-0400 SaO2% (BldA) [Mass fraction] 95 % Sonia Koaparnahik PA-C Work Phone: [facility] 02-01-2024 13:47-0400 Body temperature 98.49 [degF] Des Moomaw INCINERATOR [employer]ER.[employer]PATCHER Work Phone: [facility] 02-01-2024 13:47-0400 Body weight 82.3 kg Des Moomaw INCINERATOR [employer] LAB[employer]ER.[employer]PATCHER Work Phone: [facility] 02-01-2024 13:47-0400 Diastolic blood pressure 77 mm[Hg] Des Moomaw INCINERATOR [employer] LABORER.[employer]PATCHER Work Phone: [facility] 02-01-2024 13:47-0400 Heart rate 91 /min Des Moomaw INCINERATOR PLANT LABORER.[employer]PATCHER Work Phone: [facility] 02-01-2024 13:47-0400 Respiratory rate 18 /min Des Moomaw INCINERATOR PLANT LABORER.[employer]PATCHER Work Phone: [facility] 02-01-2024 13:47-0400 SaO2% (BldA) [Mass fraction] 98 % Des Moomaw INCINERATOR PLANT LABORER.[employer]PATCHER Work Phone: [facility] 02-01-2024 13:47-0400 Systolic blood pressure 123 mm[Hg] Des Moomaw INCINERATOR [employer] LAB[employer]ER.[employer]PATCHER Work Phone: [facility] 08-10-2023 09:20-0400 Body height 170.2 cm Theresa Terry MD Work Phone: [facility] 08-10-2023 09:20-0400 Body weight 78.93 kg Theresa Terry MD Work Phone: [facility] 08-10-2023 09:20-0400 Diastolic blood pressure 72 mm[Hg] Theresa Terry MD Work Phone: [facility] 08-10-2023 09:20-0400 Heart rate 80 /min Theresa Terry MD Work Phone: [facility] 08-10-2023 09:20-0400 Respiratory rate 14 /min Theresa Terry MD Work Phone: [facility] 08-10-2023 09:20-0400 Systolic blood pressure 105 mm[Hg] Theresa Terry MD Work Phone: [facility] 04-27-2023 13:24-0400 Body weight 82.1 kg Fauzia Mcdanielsoney PA-C Work Phone: [facility] 04-27-2023 13:24-0400 Diastolic blood pressure 78 mm[Hg] Fauzia Sorenson PA-C Work Phone: [facility] 04-27-2023 13:24-0400 Heart rate 88 /min Fauzia Mcdanielsoney PA-C Work Phone: [facility] 04-27-2023 13:24-0400 SaO2% (BldA) [Mass fraction] 94 % Fauzia Sorenson PA-C Work Phone: [facility] 04-27-2023 13:24-0400 Systolic blood pressure 112 mm[Hg] Fauzia Sorenson PA-C Work Phone: [facility] 04-10-2023 21:35-0400 Diastolic blood pressure 72 mm[Hg] Shyam Harrison INCINERATOR [employer] LABORER-[employer]PATCHER Work Phone: [facility] 04-10-2023 21:35-0400 Heart rate 79 /min Shyam Harrison INCINERATOR PLANT LABORER-[employer]PATCHER Work Phone: [facility] 04-10-2023 21:35-0400 Respiratory rate 18 /min Shyam Harrison INCINERATOR PLANT LABORER-[employer]PATCHER Work Phone: [facility] 04-10-2023 21:35-0400 SaO2% (BldA) [Mass fraction] 98 % Shyam Harrison INCINERATOR PLANT LABORER-[employer]PATCHER Work Phone: [facility] 04-10-2023 21:35-0400 Systolic blood pressure 126 mm[Hg] Shyam Harrison INCINERATOR PLANT LABORER-[employer]PATCHER Work Phone: [facility] 04-10-2023 19:35-0400 Body height 170.2 cm Shyam Harrison INCINERATOR PLANT LABORER-[employer]PATCHER Work Phone: [facility] 04-10-2023 19:34-0400 Body temperature 97.7 [degF] Shyam Harrison INCINERATOR PLANT LABORER-[employer]PATCHER Work Phone: [facility] 03-14-2023 09:38-0400 Body height 170.2 cm Shyam Harrison INCINERATOR PLANT LABORER-[employer]PATCHER Work Phone: [facility] 03-14-2023 09:38-0400 Body mass index (BMI) [Ratio] 24.9 kg/m2 Shyam Severinossler INCINERATOR PLANT LABORER-[employer]PATCHER Work Phone: [facility] 03-14-2023 09:38-0400 Body weight 72.12 kg Shyam Severinossler INCINERATOR PLANT LABORER-[employer]PATCHER Work Phone: [facility] 03-14-2023 09:38-0400 Diastolic blood pressure 64 mm[Hg] Shyam Harrison INCINERATOR PLANT LABORER-[employer] DISPATCHER Work Phone: [facility] 03-14-2023 09:38-0400 Heart rate 84 /min Shyam Harriosn INCINERATOR PLANT LABORER-[employer] DISPATCHER Work Phone: [facility] 03-14-2023 09:38-0400 SaO2% (BldA) [Mass fraction] 96 % Shyam Severinossler INCINERATOR PLANT LABORER-[employer] DISPATCHER Work Phone: [facility] 03-14-2023 09:38-0400 Systolic blood pressure 106 mm[Hg] Shyam Harrison INCINERATOR PLANT LABORER-[employer]PATCHER Work Phone: [facility] 10-12-2022 17:04-0500 Body temperature 97.9 [degF] Shyam Harrison APRN-[employer] DISPATCHER Work Phone: [facility] 10-12-2022 17:04-0500 Diastolic blood pressure 81 mm[Hg] Shyam Harrison INCINERATOR PLANT LABORER-[employer] DISPATCHER Work Phone: [facility] 10-12-2022 17:04-0500 Heart rate 82 /min Shyam Harrison INCINERATOR PLANT LABORER-[employer] DISPATCHER Work Phone: [facility] 10-12-2022 17:04-0500 Respiratory rate 22 /min Shyam Harrison INCINERATOR PLANT LABORER-[employer] DISPATCHER Work Phone: [facility] 10-12-2022 17:04-0500 SaO2% (BldA) [Mass fraction] 98 % Shyam Harrison INCINERATOR PLANT LABORER-[employer] DISPATCHER Work Phone: [facility] 10-12-2022 17:04-0500 Systolic blood pressure 117 mm[Hg] Shyam Harrison APRN-[employer] DISPATCHER Work Phone: [facility] 10-12-2022 17:00-0500 Body height 170.2 cm Shyam Harrison APRN-[employer] DISPATCHER Work Phone: [facility] 10-12-2022 17:00-0500 Body mass index (BMI) [Ratio] 23.49 kg/m2 Shyam Harrison APRN-[employer] DISPATCHER Work Phone: [facility] 10-12-2022 17:00-0500 Body weight 68.04 kg Shyam Harrison APRN-[employer] DISPATCHER Work Phone: [facility] 06-23-2022 14:36-0400 Body temperature 98.91 [degF] William Cee MD Work Phone: [facility] 06-23-2022 14:36-0400 Diastolic blood pressure 97 mm[Hg] William Cee MD Work Phone: [facility] 06-23-2022 14:36-0400 Heart rate 86 /min William Cee MD Work Phone: [facility] 06-23-2022 14:36-0400 Respiratory rate 14 /min William Cee MD Work Phone: [facility] 06-23-2022 14:36-0400 SaO2% (BldA) [Mass fraction] 96 % William Cee MD Work Phone: [facility] 06-23-2022 14:36-0400 Systolic blood pressure 137 mm[Hg] William Cee MD Work Phone: [facility] 06-23-2022 14:35-0400 Body height 170.2 cm William Cee MD Work Phone: [facility] 06-23-2022 14:35-0400 Body mass index (BMI) [Ratio] 19.58 kg/m2 William Cee MD Work Phone: [facility] 06-23-2022 14:35-0400 Body weight 56.7 kg William Cee MD Work Phone: [facility] 03-29-2022 09:59-0400 Body height 170.2 cm Hortencia Lira [employer]ER Work Phone: [facility] 03-29-2022 09:59-0400 Body mass index (BMI) [Ratio] 26 kg/m2 Hortencia Lira [employer]PATCHER Work Phone: [facility] 03-29-2022 09:59-0400 Body weight 75.3 kg Hortencia Lira [employer]PATCHER Work Phone: [facility] 03-29-2022 09:59-0400 Respiratory rate 18 /min Hortencia Lira [employer]ER Work Phone: [facility] 03-29-2022 09:59-0400 SaO2% (BldA) [Mass fraction] 98 % Hortencia Lira [employer]PATCHER Work Phone: [facility] 03-07-2022 13:41-0400 Body height 170.2 cm Hortencia Lira [employer]PATCHER Work Phone: [facility] 03-07-2022 13:41-0400 Body mass index (BMI) [Ratio] 26 kg/m2 Hortencia Lira [employer]PATCHER Work Phone: [facility] 03-07-2022 13:41-0400 Body weight 75.3 kg Hortencia Lira [employer]PATCHER [facility] [place] [facility] 03-07-2022 13:41-0400 Respiratory rate 18 /min Hortencia Lira TOW TRUCK DISPATCHER Work Phone: [facility] 02-21-2022 13:25-0400 Body height 170.2 cm Hortencia Lira TOW TRUCK DISPATCHER Work Phone: [facility] 02-21-2022 13:25-0400 Body mass index (BMI) [Ratio] 26 kg/m2 Hortencia Lira CNP Work Phone: [facility] 02-21-2022 13:25-0400 Body weight 75.3 kg Hortencia Lira CNP Work Phone: [facility] 02-21-2022 13:25-0400 Respiratory rate 18 /min Hortencia Lira CNP Work Phone: [facility] 02-21-2022 13:25-0400 SaO2% (BldA) [Mass fraction] 98 % Hortencia Lira CNP Work Phone: [facility] 02-10-2022 10:02-0400 Body height 170.2 cm Shyam Severinossler INCINERATOR PLANT LABORER-TOW TRUCK DISPATCHER Work Phone: [facility] 02-10-2022 10:02-0400 Body mass index (BMI) [Ratio] 26 kg/m2 Shyam Severinossfranko HYDEN-TOW TRUCK DISPATCHER Work Phone: [facility] 02-10-2022 10:02-0400 Body temperature 97.59 [degF] Shyam Harrison INCINERATOR PLANT LABORER-TOW TRUCK DISPATCHER Work Phone: [facility] 02-10-2022 10:02-0400 Body weight 75.3 kg Shyam Harrison INCINERATOR PLANT LABORER-TOW TRUCK DISPATCHER Work Phone: [facility] 02-10-2022 10:02-0400 Diastolic blood pressure 82 mm[Hg] Shyam Harrison INCINERATOR PLANT LABORER-TOW TRUCK DISPATCHER Work Phone: [facility] 02-10-2022 10:02-0400 Heart rate 95 /min Shyam Harrison INCINERATOR PLANT LABORER-TOW TRUCK DISPATCHER Work Phone: [facility] 02-10-2022 10:02-0400 SaO2% (BldA) [Mass fraction] 98 % Shyam Harrison INCINERATOR PLANT LABORER-TOW TRUCK DISPATCHER Work Phone: [facility] 02-10-2022 10:02-0400 Systolic blood pressure 118 mm[Hg] Shyam Harrison INCINERATOR PLANT LABORER-TOW TRUCK DISPATCHER Work Phone: [facility] 01-10-2022 12:50-0500 Body height 170.2 cm Shyam Harrison INCINERATOR PLANT LABORER-TOW TRUCK DISPATCHER Work Phone: [facility] 01-10-2022 12:50-0500 Body mass index (BMI) [Ratio] 26.5 kg/m2 Shyam Severinossler INCINERATOR PLANT LABORER-TOW TRUCK DISPATCHER Work Phone: [facility] 01-10-2022 12:50-0500 Body temperature 98.01 [degF] Shyam Severinossler INCINERATOR PLANT LABORER-TOW TRUCK DISPATCHER Work Phone: [facility] 01-10-2022 12:50-0500 Body weight 76.75 kg Shyam Severinossler INCINERATOR PLANT LABORER-TOW TRUCK DISPATCHER Work Phone: [facility] 01-10-2022 12:50-0500 Diastolic blood pressure 72 mm[Hg] Shyam Harrison INCINERATOR PLANT LABORER-TOW TRUCK DISPATCHER Work Phone: [facility] 01-10-2022 12:50-0500 Heart rate 104 /min Shyam Harrison INCINERATOR PLANT LABORER-TOW TRUCK DISPATCHER Work Phone: [facility] 01-10-2022 12:50-0500 SaO2% (BldA) [Mass fraction] 96 % Shyam Harrison INCINERATOR PLANT LABORER-TOW TRUCK DISPATCHER Work Phone: [facility] 01-10-2022 12:50-0500 Systolic blood pressure 116 mm[Hg] Shyam Harrison APRN-TOW TRUCK DISPATCHER Work Phone: [facility] 09-23-2021 08:12-0500 Body height 170.2 cm Shyam Harrison INCINERATOR PLANT LABORER-TOW TRUCK DISPATCHER Work Phone: [facility] 09-23-2021 08:12-0500 Body mass index (BMI) [Ratio] 26.78 kg/m2 Shyam Harrison INCINERATOR PLANT LABORER-TOW TRUCK DISPATCHER Work Phone: [facility] 09-23-2021 08:12-0500 Body temperature 98.2 [degF] Shyam Harrison APRN-TOW TRUCK DISPATCHER Work Phone: [facility] 09-23-2021 08:12-0500 Body weight 77.56 kg Shyam Harrison INCINERATOR PLANT LABORER-TOW TRUCK DISPATCHER Work Phone: [facility] 09-23-2021 08:12-0500 Diastolic blood pressure 84 mm[Hg] Shyam Harrison INCINERATOR PLANT LABORER-TOW TRUCK DISPATCHER Work Phone: [facility] 09-23-2021 08:12-0500 Heart rate 81 /min Shyam Harrison INCINERATOR PLANT LABORER-TOW TRUCK DISPATCHER Work Phone: [facility] 09-23-2021 08:12-0500 Respiratory rate 18 /min Shyam Harrison INCINERATOR PLANT LABORER-TOW TRUCK DISPATCHER Work Phone: [facility] 09-23-2021 08:12-0500 SaO2% (BldA) [Mass fraction] 99 % Shyam Harrison APRN-TOW TRUCK DISPATCHER Work Phone: [facility] 09-23-2021 08:12-0500 Systolic blood pressure 132 mm[Hg] Shyam Harrison APRN-TOW TRUCK DISPATCHER Work Phone: [facility] 02-16-2021 12:55-0400 BMI (Body Mass Index) 26.12 kg/m2 [facility] 02-16-2021 12:55-0400 Body Temperature 96.69 [degF] [facility] 02-16-2021 12:55-0400 Body weight 75.66 kg [facility] 02-16-2021 12:55-0400 BP Diastolic 82 mm[Hg] [facility] 02-16-2021 12:55-0400 BP Systolic 132 mm[Hg] [facility] 02-16-2021 12:55-0400 Height 170.2 cm [facility] 02-16-2021 12:55-0400 Pulse (Heart Rate) 94 /min [facility] 02-16-2021 12:55-0400 Pulse Oximetry 98 % [facility] 11-18-2020 09:14-0500 BMI (Body Mass Index) 26.25 kg/m2 [facility] 11-18-2020 09:14-0500 Body Temperature 98.29 [degF] [facility] 11-18-2020 09:14-0500 Body weight 76.02 kg [facility] 11-18-2020 09:14-0500 BP Diastolic 78 mm[Hg] [facility] 11-18-2020 09:14-0500 BP Systolic 115 mm[Hg] [facility] 11-18-2020 09:14-0500 Height 170.2 cm [facility] 11-18-2020 09:14-0500 Pulse (Heart Rate) 90 /min [facility] 11-18-2020 09:14-0500 Pulse Oximetry 93 % [facility] 10-21-2020 14:11-0500 BMI (Body Mass Index) 26.69 kg/m2 [facility] 10-21-2020 14:11-0500 Body Temperature 98.1 [degF] [facility] 10-21-2020 14:11-0500 Body weight 77.29 kg [facility] 10-21-2020 14:11-0500 BP Diastolic 68 mm[Hg] [facility] 10-21-2020 14:11-0500 BP Systolic 102 mm[Hg] [facility] 10-21-2020 14:11-0500 Height 170.2 cm [facility] 10-21-2020 14:11-0500 Pulse (Heart Rate) 111 /min [facility] 10-21-2020 14:11-0500 Pulse Oximetry 97 % [facility] 09-23-2020 10:39-0500 BMI (Body Mass Index) 24.75 kg/m2 [facility] 09-23-2020 10:39-0500 Body Temperature 97.9 [degF] [facility] 09-23-2020 10:39-0500 Body weight 71.67 kg [facility] 09-23-2020 10:39-0500 BP Diastolic 80 mm[Hg] [facility] 09-23-2020 10:39-0500 BP Systolic 118 mm[Hg] [facility] 09-23-2020 10:39-0500 Height 170.2 cm [facility] 09-23-2020 10:39-0500 Pulse (Heart Rate) 88 /min [facility] 09-23-2020 10:39-0500 Pulse Oximetry 97 % [facility] 09-23-2020 10:39-0500 Respiratory Rate 16 /min [facility] 09-09-2020 10:32-0400 BMI (Body Mass Index) 25.06 kg/m2 [facility] 09-09-2020 10:32-0400 Body Temperature 98.01 [degF] [facility] 09-09-2020 10:32-0400 Body weight 72.58 kg [facility] 09-09-2020 10:32-0400 BP Diastolic 70 mm[Hg] [facility] 09-09-2020 10:32-0400 BP Systolic 102 mm[Hg] [facility] 09-09-2020 10:32-0400 Height 170.2 cm [facility] 09-09-2020 10:32-0400 Pulse (Heart Rate) 71 /min [facility] 09-09-2020 10:32-0400 Pulse Oximetry 95 % [facility] 09-09-2020 10:32-0400 Respiratory Rate 16 /min [facility] 07-14-2020 23:19-0400 BP Diastolic 78 mm[Hg] [facility] 07-14-2020 23:19-0400 BP Systolic 110 mm[Hg] [facility] 07-14-2020 23:19-0400 Pulse (Heart Rate) 68 /min [facility] 07-14-2020 23:19-0400 Respiratory Rate 14 /min [facility] 07-14-2020 22:29-0400 BMI (Body Mass Index) 20.36 kg/m2 [facility] 07-14-2020 22:29-0400 Body weight 58.97 kg [facility] 07-14-2020 22:29-0400 Height 170.2 cm [facility] 07-14-2020 22:28-0400 Body Temperature 98.4 [degF] [facility] 07-14-2020 22:28-0400 Pulse Oximetry 97 % [facility] 07-16-2019 18:54-0400 BMI (Body Mass Index) 23.02 kg/m2 [facility] 07-16-2019 18:54-0400 Body weight 66.68 kg [facility] 07-16-2019 18:54-0400 Height 170.2 cm [facility] 07-16-2019 18:50-0400 Body Temperature 98.29 [degF] [facility] 07-16-2019 18:50-0400 BP Diastolic 80 mm[Hg] [facility] 07-16-2019 18:50-0400 BP Systolic 119 mm[Hg] [facility] 07-16-2019 18:50-0400 Pulse (Heart Rate) 73 /min [facility] 07-16-2019 18:50-0400 Pulse Oximetry 97 % [facility] 07-16-2019 18:50-0400 Respiratory Rate 16 /min [facility] Encounters Encounter Date Encounter Type Care Provider Facility Start: 07-23-2025 Non-patient / Non-visit Anderson Khan nd DO -H-[facility] Start: 07-23-2025 End: 07-23-2025 Admission to same day surgery center Anderson Conroy DO -Endoscopy Work Phone: Start: 07-23-2025 End: 07-23-2025 ambulatory No Primary Care Physician -Endoscopy Start: 07-20-2025 End: 07-20-2025 Patient encounter procedure Elsie LYNN -[facility] Work Phone: Start: 07-20-2025 End: 07-20-2025 ambulatory No Primary Care Physician -[facility] Start: 07-15-2025 End: 07-15-2025 Emergency department patient visit No Primary Care Physician -Emergency Department Work Phone: Start: 07-15-2025 End: 07-15-2025 Emergency department patient visit JARVIS KNOWLES DO [facility] Start: 07-08-2025 End: 07-08-2025 Emergency department patient visit No Primary Care Physician -Emergency Department Work Phone: Start: 05-01-2025 End: 05-01-2025 Emergency department patient visit No Primary Care Physician -Emergency Department Work Phone: Start: 03-12-2025 End: 03-12-2025 Emergency department patient visit Gildardo Rubio DO -Emergency Department Work Phone: Start: 02-25-2025 End: 02-25-2025 Unlisted evaluation and management service Davonte Aj INCINERATOR PLANT LABORER.[employer] TR[employer] DISPATCHER Work Phone: Family Medicine Comment on above: NO SHOW (Primary Dx) Start: 02-21-2025 End: 02-22-2025 Emergency department patient visit NONE PHYSICIAN Facility:A Start: 02-21-2025 End: 02-22-2025 Observation JERAMIE BRUNER MD [facility] Start: 02-21-2025 End: 02-21-2025 Emergency department patient visit ADONAY DONNELLY MD Facility:[facility] Start: 01-27-2025 End: 01-27-2025 Patient encounter procedure Fauzia Sorenson PA-C Work Phone: Urology Comment on above: Pelvic floor dysfunc tion (Primary Dx); Impotence of organic origin Start: 01-27-2025 End: 01-27-2025 ambulatory FAUZIA SORENSON Facility:[facility] Start: 01-26-2025 End: 01-26-2025 Emergency department patient visit DR BROOKE GOLDBERG MD Facility:[facility] Start: 01-05-2025 End: 01-05-2025 Emergency department patient visit ED PHYSICIAN PROVIDER -Emergency Department Work Phone: Start: 11-25-2024 End: 11-25-2024 Emergency department patient visit No Primary Care Physician Facility:[facility] Start: 11-25-2024 End: 11-25-2024 Emergency department patient visit FROYLAN HANSON MD [facility] Start: 10-28-2024 End: 10-28-2024 ambulatory FAUZIA SORENSON Facility:[facility] Start: 10-28-2024 End: 10-28-2024 Patient encounter procedure Fauzia Sorenson PA-C Work Phone: Urology Comment on above: Premature ejaculatio n (Primary Dx); Impotence of organic origin; Pelvic floor dysfunction; Pain in testicle, unspecified laterality Start: 10-21-2024 End: 10-21-2024 Emergency department patient visit No Primary Care Physician Facility:[facility] Start: 09-25-2024 End: 09-25-2024 Manual pelvic examination Karen Augustin PT, DPT [facility] [place] Comment on above: Pelvic pain in male (Primary Dx); Pain in testicle, unspecified laterality; Chronic constipation; Bladder neck obstruction; Retention of urine, unspecified; Detrusor sphincter dyssynergia Start: 09-25-2024 End: 09-25-2024 ambulatory Karen Augustin PT, DPT [facility] [place] Start: 08-28-2024 End: 08-28-2024 Subsequent hospital visit by physician Xr [facility] Work Phone: Radiology Comment on above: URI, acute [J06.9] Start: 08-28-2024 End: 08-28-2024 ambulatory EMMANUEL GONZALEZ Facility:[facility] Start: 08-28-2024 End: 08-28-2024 Patient encounter procedure Comfort Rincon APRN.TOW TRUCK DISPATCHER Work Phone: [facility] Comment on above: URI, acute (Primary Dx); Acute cough Start: 07-29-2024 End: 07-29-2024 ambulatory EMMANUEL GONZALEZ Facility:[facility] Start: 07-29-2024 End: 07-29-2024 Patient encounter procedure Fauzia Sorenson PA-C Work Phone: Urology Comment on above: Pelvic floor dysfunc tion (Primary Dx); Impotence of organic origin Start: 07-15-2024 End: 07-15-2024 ambulatory EMMANUEL GONZALEZ Facility:[facility] Start: 07-15-2024 End: 07-15-2024 Patient encounter procedure Fauzia Sorenson PA-C Work Phone: Urology Comment on above: Pelvic pain in male (Primary Dx); Pain in testicle, unspecified laterality; Pelvic floor dysfunction Start: 04-30-2024 Telephone encounter Shay Gonzalez MD Work Phone: [facility] [place] Start: 04-29-2024 End: 04-29-2024 ambulatory EMMANUEL GONZALEZ Facility:[facility] Start: 04-29-2024 End: 04-29-2024 Office outpatient visit 25 minutes Jono Chavez APRN.TOW TRUCK DISPATCHER Work Phone: [facility] Comment on above: Screening for STD (s exually transmitted disease) (Primary Dx); STD exposure Start: 04-04-2024 End: 04-04-2024 ambulatory EMMANUEL GONZALEZ Facility:[facility] Start: 04-04-2024 End: 04-04-2024 Patient encounter procedure Benedict Berg APRN.TOW TRUCK DISPATCHER Work Phone: [facility] Comment on above: Exposure to chlamydi a (Primary Dx); Dysuria Start: 03-25-2024 End: 03-25-2024 ambulatory EMMANUEL GONZALEZ Facility:[facility] Start: 03-25-2024 End: 03-25-2024 Patient encounter procedure Winnie CASTRO Work Phone: [facility] Comment on above: Sore throat (Primary Dx); Mild persistent asthma without complication Start: 03-17-2024 End: 03-17-2024 Emergency department patient visit GILL BAXTER MD Facility:[facility] Start: 03-17-2024 End: 03-17-2024 Emergency department patient visit GILL BAXTER MD [facility] Start: 03-14-2024 End: 03-14-2024 ambulatory EMMANUEL GONZALEZ Facility:[facility] Start: 03-14-2024 End: 03-14-2024 Subsequent hospital visit by physician [facility] Work Phone: Radiology Comment on above: Pain in testicle, un specified laterality [N50.819] Start: 03-12-2024 E-mail encounter ethan rajan caregiver [facility] Provider [facility] Start: 03-12-2024 Patient encounter procedure [facility] Provider [facility] Comment on above: appointment Start: 03-12-2024 Telephone encounter Sonia rider PA-C Work Phone: [facility] Comment on above: Orders Start: 02-28-2024 End: 02-28-2024 ambulatory EMMANUEL GONZALEZ Facility:[facility] Start: 02-28-2024 End: 02-28-2024 Patient encounter procedure Sonia Kramer PA-C Work Phone: [facility] Comment on above: Pain in testicle, un specified laterality [N50.819] (Primary Dx) Start: 02-01-2024 End: 02-01-2024 Patient encounter procedure Des Garciadamian INCINERATOR PLANT LABORER.TOW TRUCK DISPATCHER Work Phone: [facility] Comment on above: Testicular pain, rig ht (Primary Dx) Start: 10-19-2023 End: 10-19-2023 ambulatory JUSTUS BEAN JR Facility:[facility] Start: 10-19-2023 Patient encounter status Des Rajan sadia INCINERATOR PLANT LABORER.TOW TRUCK DISPATCHER Work Phone: [facility] Work Phone: Start: 09-04-2023 End: 09-04-2023 [...] PROVIDER ADULT Start: 05-02-2023 Telephone encounter Fauzia CASTRO-C Work Phone: Urology Comment on above: Results; Orders Start: 04-30-2023 End: 04-30-2023 Subsequent hospital visit by physician [facility] Work Phone: Radiology Comment on above: Blood in semen [R36. 1] Start: 04-27-2023 Telephone encounter Theresa worley MD Work Phone: [facility] Comment on above: Appointment Start: 04-27-2023 End: 04-27-2023 Patient encounter procedure Fauzia Sorenson PA-C Work Phone: Urology Comment on above: Blood in semen (Prim frank Dx); Pain in both testicles; Scrotal varices Start: 04-10-2023 End: 04-10-2023 Emergency department patient visit SHYAM Rosenbaum [facility] Start: 04-10-2023 End: 04-10-2023 Emergency department patient visit Shyam Harrison APRN-TOW TRUCK DISPATCHER Work Phone: [facility] Start: 03-21-2023 ambulatory SHYAM GARCIA [facility] Start: 03-14-2023 ambulatory SHYAM Rosenbaum [facility] Start: 03-14-2023 End: 03-14-2023 Office outpatient visit 15 minutes Shyam Harrison INCINERATOR PLANT LABORER-TOW TRUCK DISPATCHER Work Phone: [facility] Comment on above: Erectile dysfunction , unspecified erectile dysfunction type (Primary Dx); Disorder of ejaculation Start: 10-20-2022 End: 10-20-2022 Emergency department patient visit SHYAM HARRISON [facility] Start: 10-12-2022 End: 10-12-2022 Emergency department patient visit SHYAM HARRISON [facility] Start: 10-12-2022 End: 10-12-2022 Emergency department patient visit Shyam Harrison INCINERATOR PLANT LABORER-TOW TRUCK DISPATCHER Work Phone: [facility] Start: 06-23-2022 End: 06-23-2022 Emergency department patient visit SHYAM HARRISON [facility] Start: 06-23-2022 End: 06-23-2022 Emergency department patient visit William Cee MD Work Phone: [facility] Start: 04-06-2022 [facility] Start: 04-06-2022 End: 04-06-2022 Subsequent hospital visit by physician Hortencia Lira [employer]OW TRUCK DISPATCHER Work Phone: [facility] Comment on above: Arrived Start: 03-29-2022 [facility] Start: 03-29-2022 End: 03-29-2022 Office outpatient visit 25 minutes Hortencia Lira TOW TRUCK DISPATCHER Work Phone: [facility] Comment on above: Elevated prolactin l evel (Primary Dx); Vasculogenic erectile dysfunction, unspecified vasculogenic erectile dysfunction type; Kidney stone; Microscopic hematuria Start: 03-20-2022 [facility] Start: 03-20-2022 End: 03-20-2022 Subsequent hospital visit by physician Hortencia Lira [employer]OW TRUCK DISPATCHER Work Phone: [facility] CT Scan Comment on above: Arrived Start: 03-07-2022 [facility] Start: 03-07-2022 End: 03-07-2022 Office outpatient visit 15 minutes Hortencia Lira TOW TRUCK DISPATCHER Work Phone: [facility] Comment on above: Vasculogenic erectil e dysfunction, unspecified vasculogenic erectile dysfunction type (Primary Dx); Microscopic hematuria; Kidney stone Start: 03-03-2022 [facility] Start: 03-03-2022 End: 03-03-2022 Subsequent hospital visit by physician Hortencia Lira TOW TRUCK DISPATCHER Work Phone: [facility] Ultrasound Comment on above: Arrived Start: 02-22-2022 ambulatory [facility] Start: 02-21-2022 ambulatory [facility] Start: 02-21-2022 End: 02-21-2022 Office outpatient visit 25 minutes Hortencia Lira TOW TRUCK DISPATCHER Work Phone: [facility] Comment on above: Vasculogenic erectil e dysfunction, unspecified vasculogenic erectile dysfunction type (Primary Dx); Urinary frequency; Microscopic hematuria Start: 02-10-2022 End: 02-10-2022 Office outpatient visit 15 minutes Shyam Harrison INCINERATOR PLANT LABORER-TOW TRUCK DISPATCHER Work Phone: [facility] Comment on above: Erectile dysfunction , unspecified erectile dysfunction type (Primary Dx); Schizoaffective disorder, unspecified type; Hx of opioid abuse Start: 01-10-2022 End: 01-10-2022 Office outpatient visit 25 minutes Shyam Harrison INCINERATOR PLANT LABORER-TOW TRUCK DISPATCHER Work Phone: [facility] Comment on above: Erectile dysfunction , unspecified erectile dysfunction type (Primary Dx); Mild persistent asthma without complication; Diarrhea, unspecified type; Tobacco abuse disorder Start: 09-23-2021 End: 09-23-2021 Office outpatient visit 25 minutes Shyam Harrison INCINERATOR PLANT LABORER-TOW TRUCK DISPATCHER Work Phone: [facility] Comment on above: Mild persistent asth ma without complication (Primary Dx); Erectile dysfunction, unspecified erectile dysfunction type; Encounter for preventative adult health care examination; Tobacco abuse disorder Start: 09-23-2021 End: 09-23-2021 Patient encounter status Shyam Harrison INCINERATOR PLANT LABORER-TOW TRUCK DISPATCHER Work Phone: [facility] Start: 02-16-2021 End: 02-16-2021 Office outpatient visit 25 minutes Shyam Harrison Work Phone: [facility] Comment on above: Mild persistent asth ma without complication (Primary Dx); Erectile dysfunction, unspecified erectile dysfunction type; Tobacco abuse disorder Start: 11-18-2020 End: 11-18-2020 Office outpatient visit 15 minutes Shyam Harrison Work Phone: [facility] Comment on above: Erectile dysfunction , unspecified erectile dysfunction type (Primary Dx); Mild persistent asthma without complication; Schizoaffective disorder, unspecified type Start: 10-21-2020 End: 10-21-2020 Office outpatient visit 25 minutes Shyam Harrison Work Phone: [facility] Comment on above: Erectile dysfunction , unspecified erectile dysfunction type (Primary Dx); Mild persistent asthma without complication; Tobacco abuse disorder Start: 09-23-2020 End: 09-23-2020 Office outpatient visit 25 minutes Shyam Harrison Work Phone: [facility] Comment on above: Schizoaffective diso rder, unspecified type (Primary Dx); Mild persistent asthma without complication; Erectile dysfunction, unspecified erectile dysfunction type; Hx of opioid abuse; History of methamphetamine abuse Start: 09-09-2020 Patient encounter status Shyam Harrison INCINERATOR PLANT LABORER-TOW TRUCK DISPATCHER Work Phone: [email or web address] Start: 09-09-2020 End: 09-09-2020 Office outpatient new 45 minutes Shyam Harrison Work Phone: [facility] Comment on above: Encounter for medica l examination to establish care (Primary Dx); Mild persistent asthma without complication; Hx of opioid abuse; History of methamphetamine abuse; Tobacco abuse disorder Start: 07-14-2020 End: 07-14-2020 Emergency department patient visit Jun Martinez Work Phone: [facility] Emergency Department Start: 07-16-2019 End: 07-16-2019 Emergency department patient visit Camilo Phipps Work Phone: [facility] Emergency Medicine Start: 07-16-2019 End: 07-16-2019 Letter encounter Provider Paty [facility] Start: 02-19-2018 Ambulatory Marce Barrientos [facility] Start: 09-18-2017 Ambulatory UNKNOWN LULA [facility] Procedures Date Procedure Procedure Detail Performing Clinician Start: 07-23-2025 Esophagogastroduodenoscopy No Primary Ca re Physician Start: 07-15-2025 Urnls dip stick/tablet reagent auto microscopy No Primary Care Physician Start: 07-15-2025 Ultrasound of scrotum with Doppler and color flow imaging No Primary Care Physician Start: 07-08-2025 Plain x-ray of wrist No Primary Care Physician Start: 05-01-2025 Plain X-ray abdomen No Primary Care Physician Start: 05-01-2025 Estimated creatinine clearance No Primar y Care Physician Start: 03-12-2025 Estimated creatinine clearance No Primar y Care Physician Start: 01-27-2025 Follow-up visit Follow Up FAUZIA SORENSON Start: 08-28-2024 Radiologic exam chest 2 views Comfort carr INC[employer]ATOR [employer]ER.[employer] Work Phone: Start: 08-28-2024 STREP A MOLECULAR (POC) [facility] Provider Start: 04-29-2024 Urnls dip stick/tablet rgnt auto w/o microscopy Jono Chavez [employer]ATOR [employer]ER.[employer] Work Phone: Start: 03-25-2024 STREP A MOLECULAR (POC) Winnie CASTRO Work Phone: Start: 02-28-2024 Urnls dip stick/tablet rgnt auto w/o microscopy Sonia Kramer PA-C Work Phone: Start: 04-30-2023 Dup-scan artl jose abdl/pel/scrot&/rpr orgn com Fauzia Sorenson PA-C Work Phone: Start: 04-30-2023 Us scrotum & contents Fauzia Sorenson PA-C Work Phone: Start: 04-27-2023 Urnls dip stick/tablet rgnt auto w/o microscopy Fauzia Sorenson PA-C Work Phone: Start: 04-10-2023 Urinalysis microscopic only Justus jose [employer] Work Phone: Start: 04-10-2023 Urinalysis, reagent strip without microscopy Justus Muñoz [employer] Work Phone: Start: 04-10-2023 Ct abdomen & pelvis w/o contrast material Justus Muñoz [employer] Work Phone: Start: 04-06-2022 Mri brain brain stem w/o w/contrast material Hortencia Lira [employer] Work Phone: Start: 03-29-2022 Urnls dip stick/tablet rgnt auto w/o microscopy Hortencia Lira [employer] Work Phone: Start: 03-07-2022 Urnls dip stick/tablet rgnt auto w/o microscopy Hortencia Lira [employer] Work Phone: Start: 03-03-2022 Us retroperitoneal real time w/image complete Hortencia Lira [employer] Work Phone: Start: 02-21-2022 Urnls dip stick/tablet rgnt auto w/o microscopy Hortencia Lira [employer] Work Phone: Start: 09-23-2021 Complete blood count with white cell differential, automated Shyam Harrison INCINERATOR PLANT LABORER-[facility] Work Phone: Start: 09-23-2021 Comprehensive metabolic panel Shyam ortiz INC[employer]ERATOR PL[employer]ER-[facility] Work Phone: Start: 09-23-2021 Lipid panel Shyam Harrison [employer]ATOR [employer]ER-[facility] Work Phone: Start: 09-23-2021 Lipid 1996 panel - Serum or Plasma Des mccullough APRN.[employer]ATCH[employer] Work Phone: Start: 07-16-2019 URINALYSIS, MACRO Camilo Phipps Work Phone: Start: 02-24-2014 Lipid 1996 panel - Serum or Plasma Theresa Terry MD Work Phone: Entire testicle (body structure) GILL BAXTER MD Comment on above: varicele Plan of Treatment Date Care Activity Detail Author Start: 09-23-2026 Lipid panel Lipid Screening [facility] Start: 02-25-2026 Annual PCP Team Chronic Disease Visit Annual PCP Team Chronic Disease Visit [facility] Start: 07-23-2025 Patient discharge [facility] Start: 07-15-2025 [facility] Start: 07-08-2025 [facility] Start: 05-01-2025 [facility] Start: 03-31-2025 End: 03-31-2025 Patient encounter procedure 03/31/2025 2:15 PM EDT Office Visit Gastroenterology Michael [address] [facility] [place] [address] Erin Gandhi APRN.[employer]ATCH[employer] [address] [place] [address] consult for [facility] followup throat issues, possible EGD Gastroenterology [place] Comment on above: consult for [facility] followup throat i ssues, possible EGD Start: 01-27-2025 End: 01-27-2025 Patient encounter procedure 01/27/2025 4:30 PM EDT Office Visit Urology [address] [place] [address] Fauzia Sorenson PA-C [address] [place], [place] [id number] 3 month follow up Urology Comment on above: 3 month follow up Start: 10-28-2024 End: 10-28-2024 Patient encounter procedure 10/28/2024 3:30 PM EST Office Visit Urology [address] [place] [address] Fauzia Sorenson PA-C [address] [place] [address] DISCUSS ED Urology Comment on above: DISCUSS ED Start: 09-25-2024 End: 09-25-2024 Manual pelvic examination 09/25/2024 10:45 AM EST OT/PT/Speech Visit [facility] Bartolo Lynch [address] [place] [address] Karen Augustin, PT, DPT Pelvic pain in male [R10.2] [facility] [place] Comment on above: Pelvic pain in male [R10.2] Start: 07-29-2024 End: 07-29-2024 Patient encounter procedure 07/29/2024 2:30 PM EDT Office Visit Urology [address] [place] [address] Fauzia Sorenson PA-C [address] [place] [address] Discuss ED Urology Comment on above: Discuss ED Start: 07-13-2024 Covid-19 Vaccine ( season) Covid-19 Vaccine () [facility] Start: 07-13-2024 Covid-19 Vaccine () Covid-19 Vaccine () [facility] Start: 07-13-2024 Influenza vaccination [facility] Start: 04-10-2024 End: 04-10-2024 Patient encounter procedure 04/10/2024 9:15 AM EDT Office Visit [facility] [address] [place] [address] Justus Bean Jr., MD [address] [place], [place] [id number] pain in testicle- per Sonia [facility] Comment on above: pain in testicle- per Sonia Start: 03-20-2024 End: 03-20-2024 Patient encounter procedure 03/20/2024 1:00 PM EDT Office Visit [facility] [address] [place] [address] Justus Bean Jr., MD [address] [place], [place] [address] ultrasound prior- still has testicular pain- need to confirm(sonia would like pt to see gangel for this) [facility] Comment on above: ultrasound prior- still has testicular p ain- need to confirm(sonia would like pt to see gangel for this) Start: 03-14-2024 End: 03-14-2024 Patient encounter procedure 03/14/2024 9:15 AM EDT Appointment Radiology [address] [place] [address] Pain in testicle, unspecified laterality [N50.819] Radiology Comment on above: Pain in testicle, unspecified laterality [N50.819] Start: 03-12-2024 End: 03-12-2024 Patient encounter procedure 03/12/2024 1:15 PM EDT Office Visit [facility] [address] [place] [address] Sonia Kramer PA-C [address] [place] [address] sent [employer] message to call me Leonides Ambriz-----still has testicular pain [facility] Comment on above: sent [employer] message to call me Leonides Ambriz -----still has testicular pain Start: 11-12-2023 Behavioral Health Screening Behavioral Health Screening [facility] Start: 11-12-2023 Depression Assessment Depression Assessment [facility] Start: 11-09-2023 End: 08-10-2024 POST VASEC SCREEN POST VASEC SCREEN Andrology Routine Encounter for sterilization Expected: 11/09/2023, Expires: 08/10/2024 [facility] Work Phone: Comment on above: Expected: 11/09/2023, Expires: Start: 08-30-2023 HPV Vaccine (3 - 3-dose SCDM series) HPV Vaccine (3 - 3-dose SCDM series) [facility] Start: 07-13-2023 Covid-19 Vaccine ( season) Covid-19 Vaccine ( season) [facility] Start: 07-13-2023 Influenza vaccination [facility] Start: 11-12-2022 DEPRESSION ASSESSMENT DEPRESSION ASSESSMENT [facility] Start: 07-13-2022 Influenza vaccination [facility] Start: 07-13-2022 End: 07-13-2022 Patient encounter procedure 07/13/2022 Office Visit Family Medicine Shyam Harrison, INCINERATOR [employer] LABORER-[employer] [address] [facility] [place] [address] [facility] Start: 07-13-2022 End: 07-13-2022 Patient encounter procedure 07/13/2022 Office Visit Family Medicine Shyam Harrison, INCINERATOR [employer] LABORER-[employer] [address] [facility] [place] [address] [facility] Start: 06-01-2022 End: 06-01-2022 Patient encounter procedure 06/01/2022 Office Visit Endocrinology, Diabetes & Metabolism Jaja Joaquin, MARCELLA [address] [place] [address] [facility] Endocrinology Start: 04-20-2022 End: 04-20-2022 Patient encounter procedure 04/20/2022 Office Visit Urology Margarito Thorne MD [address] [facility] 1[address] [place] [address] [facility] Start: 03-29-2022 End: 03-29-2023 Creatinine [Mass/volume] in Serum or Plasma CREATININE SERUM Lab Routine Elevated prolactin level Expected: 03/29/2022, Expires: 03/29/2023 [facility] Comment on above: Expected: 03/29/2022, Expires: 3 Start: 03-29-2022 End: 03-29-2023 MR Brain and Pituitary and Sella turcica WO and W contrast IV MRI PITUITARY WITH AND WITHOUT CONTRAST Imaging Routine Elevated prolactin level Expected: 03/29/2022, Expires: 03/29/2023 [facility] Comment on above: Expected: 03/29/2022, Expires: 3 Start: 03-21-2022 End: 03-21-2022 Patient encounter procedure 03/21/2022 Office Visit Urology Hortencia Lira, MARCELLA [address] [place] [address], [place] [address] [facility] Start: 03-07-2022 End: 03-07-2023 CT Abdomen and Pelvis WO contrast CT ABDOMEN/PELVIS WITHOUT CONTRAST Imaging Routine Kidney stone Expected: 03/07/2022, Expires: 03/07/2023 [facility] Comment on above: Expected: 03/07/2022, Expires: Start: 03-07-2022 End: 03-07-2023 [facility] Comment on above: Expected: 03/07/2022, Expires: Start: 03-07-2022 End: 03-07-2022 Patient encounter procedure 03/07/2022 Office Visit Urology Hortencia Lira CNP [address] [place] [address] [facility] Start: 03-01-2022 End: 03-01-2022 Patient encounter procedure 03/01/2022 Office Visit Urology Hortencia Lira CNP [address] [place] [address] [facility] Start: 02-21-2022 End: 02-21-2023 FSH FSH Lab Routine Vasculogenic erectile dysfunction, unspecified vasculogenic erectile dysfunction type Expected: 02/21/2022, Expires: 02/21/2023 [facility] Comment on above: Expected: 02/21/2022, Expires: Start: 02-21-2022 End: 02-21-2023 HEMOGLOBIN & HEMATOCRIT HEMOGLOBIN & HEMATOCRIT Lab Routine Vasculogenic erectile dysfunction, unspecified vasculogenic erectile dysfunction type Expected: 02/21/2022, Expires: 02/21/2023 [facility] Comment on above: Expected: 02/21/2022, Expires: Start: 02-21-2022 End: 02-21-2023 LH LH Lab Routine Vasculogenic erectile dysfunction, unspecified vasculogenic erectile dysfunction type Expected: 02/21/2022, Expires: 02/21/2023 [facility] Comment on above: Expected: 02/21/2022, Expires: 3 Start: 02-21-2022 End: 02-21-2023 PROLACTIN PROLACTIN Lab Routine Vasculogenic erectile dysfunction, unspecified vasculogenic erectile dysfunction type Expected: 02/21/2022, Expires: 02/21/2023 [facility] Comment on above: Expected: 02/21/2022, Expires: 3 Start: 02-21-2022 End: 02-21-2023 SEX HORMONE BINDING GLOBULIN SEX HORMONE BINDING GLOBULIN Lab Routine Vasculogenic erectile dysfunction, unspecified vasculogenic erectile dysfunction type Expected: 02/21/2022, Expires: 02/21/2023 [facility] Comment on above: Expected: 02/21/2022, Expires: 3 Start: 02-21-2022 End: 02-21-2023 Testosterone [Mass/volume] in Serum or Plasma TESTOSTERONE Lab Routine Vasculogenic erectile dysfunction, unspecified vasculogenic erectile dysfunction type Expected: 02/21/2022, Expires: 02/21/2023 [facility] Comment on above: Expected: 02/21/2022, Expires: 3 Start: 02-21-2022 End: 02-21-2022 Patient encounter procedure 02/21/2022 Office Visit Urology Hortencia Lira, [employer]PATCHER [address] [address] [facility] Start: 07-13-[address] [facility] Start: 02-16-2021 End: 02-16-2021 Office Visit 02/16/2021 Office Visit Family Medicine Shyam Harrison, INCINERATOR PL[employer]ER-[employer] [address] [place] [address] [phone] [facility] Start: 02-02-2021 ANNUAL PCP TEAM CHRONIC DISEASE VISIT ANNUAL PCP TEAM CHRONIC DISEASE VISIT [facility] Start: 11-18-2020 End: 11-18-2020 Office Visit 11/18/2020 Office Visit Family Medicine Shyam Harrison, INCINERATOR [employer]ER-[employer] [address] [place] [address] [phone] [facility] Start: 10-21-2020 End: 10-21-2020 Office Visit 10/21/2020 Office Visit Family Medicine Shyam Harrison, INCINERATOR PLANT LABORER-[employer] [address] [place] [address] [phone] [facility] Start: 09-23-2020 End: 09-23-2020 Office Visit 09/23/2020 Office Visit Family Medicine Shyam Harrison, INCINERATOR PLANT LABORER-[employer] [address] [place] [address] [phone] [facility] Start: 07-13-2020 Influenza vaccination INFLUENZA VACCINE (#1) [facility] Start: 07-13-2019 Influenza vaccination INFLUENZA VACCINE (#1) [facility] Start: 02-24-2019 Lipid 1996 panel - Serum or Plasma Lipid Screening [facility] Start: 02-24-2019 LIPID SCREEN LIPID SCREEN [facility] Start: 10-31-2012 Urine microalbumin profile [facility] Start: 2002 Pneumococcal vaccination Pneumococcal Vaccine (1 of 2 - PCV) [facility] Start: 2002 Third diphtheria, tetanus and acellular pertussis (DTaP) vaccination TDAP (ADULT) [facility] Start: 2001 Annual PCP Team Chronic Disease Visit Annual PCP Team Chronic Disease Visit [facility] Start: 2001 Depression Screening Depression Screening [facility] Start: 2001 Tetanus vaccination TETANUS [facility] Start: 1999 COVID-19 VACCINE (1) COVID-19 VACCINE (1) [facility] Start: 1998 HIV screening HIV SCREENING DISCUSSION [facility] Start: 1996 HIV screening HIV SCREENING DISCUSSION [facility] Start: 1989 PNEUMOCOCCAL (1 - PCV) PNEUMOCOCCAL (1 - PCV) [facility] Start: 1989 Pneumococcal vaccination [facility] Start: 1989 PNEUMOCOCCAL VACCINE SERIES (1 - PCV) PNEUMOCOCCAL VACCINE SERIES (1 - PCV) [facility] Start: 1989 PNEUMOCOCCAL VACCINE SERIES (1 of 2 - PPSV23) PNEUMOCOCCAL VACCINE SERIES (1 of 2 - PPSV23) [facility] Start: 1988 COVID-19 VACCINE (#1) COVID-19 VACCINE (#1) [facility] Start: 1988 COVID-19 VACCINE (1) COVID-19 VACCINE (1) [facility] Start: 1983 COVID-19 VACCINE (#1) COVID-19 VACCINE (#1) [facility] Start: 1983 Hepatitis C antibody, confirmatory test HEPATITIS C VIRUS SCREENING [facility] Start: 1983 Hepatitis C screening HEPATITIS C VIRUS SCREENING [facility] Start: 1983 Tetanus vaccination TETANUS [facility] Bacteria identified in Urine by Culture URINE CULTURE Microbiology Routine 04/10/2023 8:48 PM EDT [facility] Work Phone: Chlamydia trachomatis+Neisseria gonorrhoeae DNA [Presence] in Unspecified specimen by TRACY with probe detection GONORRHEA/CHLAMYDIA NAAT Lab Routine Screening for STD (sexually transmitted disease) 04/29/2024 3:11 PM EDT [facility] Work Phone: Complete blood count with white cell differential, automated CBC, EDIF, PLATELET Lab Routine Encounter for preventative adult health care examination 09/23/2021 8:35 AM [facility] Comprehensive metabolic 2000 panel - Serum or Plasma COMPREHENSIVE METABOLIC PANEL Lab Routine Encounter for preventative adult health care examination 09/23/2021 8:35 AM [facility] COVID & INFLUENZA A/ B & RSV PCR, ROUTINE COVID & INFLUENZA A/B & RSV PCR, ROUTINE Microbiology Routine URI, acute Ordered: 08/28/2024 [facility] Work Phone: Comment on above: Ordered: 08/28/2024 End: 03-20-2022 CT Abdomen and Pelvis WO contrast [facility] Comment on above: 1 Occurrences starting 03/20/2022 until 03/20/2022 CYTOLOGY REQUEST CYTOLOGY REQUES T Cytology Routine Vasculogenic erectile dysfunction, unspecified vasculogenic erectile dysfunction type Urinary frequency Ordered: 02/21/2022 [facility] Comment on above: Ordered: 02/21/2022 End: 05-26-2024 Dup-scan artl jose abdl/pel/scrot&/rpr orgn com US DOPPLER COMPLETE Radiology Routine Blood in semen Scrotal varices Pain in both testicles 1 Occurrences starting 04/27/2023 until 05/26/2024 [facility] Work Phone: Comment on above: 1 Occurrences starting 04/27/2023 until 05/26/2024 LIPID PANEL W CALCULATED LDL LIPID PANEL W CALCULATED LDL Lab Routine Encounter for preventative adult health care examination 09/23/2021 8:35 AM EST Stat [facility] Roddy post-voiding residual urine&/bladder cap CA RODDY,POST-VOID RES,US,NON-IMAGING CA Charge Routine Urinary frequency Ordered: 02/21/2022 [facility] Comment on above: Ordered: 02/21/2022 Patient Education [facility] Work Phone: Patient referral [facility] Work Phone: SURGICAL PATHOLOGY SURGICAL PATH OLOGY Lab Routine Encounter for sterilization Ordered: 08/10/2023 [facility] Work Phone: Comment on above: Ordered: 08/10/2023 End: 05-26-2024 Us scrotum & contents US SCROTUM AND CONTENTS Radiology Routine Blood in semen Scrotal varices Pain in both testicles 1 Occurrences starting 04/27/2023 until 05/26/2024 [facility] Work Phone: Comment on above: 1 Occurrences starting 04/27/2023 until 05/26/2024 End: 04-11-2025 US.doppler Scrotum and testicle US SCROTUM AND CONTENTS Radiology Routine Pain in testicle, unspecified laterality 1 Occurrences starting 03/12/2024 until 04/11/2025 [facility] Work Phone: Comment on above: 1 Occurrences starting 03/12/2024 until 04/11/2025 US.doppler Scrotum and testicle US SCROTUM AND CONTENTS Radiology Routine Pain in testicle, unspecified laterality 03/14/2024 10:58 AM EDT [facility] Work Phone: End: 04-11-2025 US.doppler Unspecified body region US DOPPLER COMPLETE Radiology Routine Pain in testicle, unspecified laterality 1 Occurrences starting 03/12/2024 until 04/11/2025 [facility] Comment on above: 1 Occurrences starting 03/12/2024 until 04/11/2025 US.doppler Unspecified body region US DOPPLER COMPLETE Radiology Routine Pain in testicle, unspecified laterality 03/14/2024 10:58 AM EDT [facility] Work Phone: [facility] Immunizations Immunization Date Immunization Notes Care Provider Morris bolden 04-30-2023 Human Papillomavirus 9-valent vaccine Theresa Terry MD Work Phone: [facility] 02-16-2023 Human Papillomavirus 9-valent vaccine Theresa Terry MD Work Phone: [facility] 05-21-2020 hepatitis B vaccine, adult dosage Theresa Terry MD Work Phone: [facility] Work Phone: 12-22-2019 hepatitis B vaccine, adult dosage Theresa Terry MD Work Phone: [facility] Work Phone: 11-21-2019 hepatitis A and hepatitis B vaccine Theresa Terry MD Work Phone: [facility] Work Phone: 06-02-2014 hepatitis B vaccine, adult dosage Theresa Terry MD Work Phone: [facility] 04-01-2014 hepatitis A vaccine, adult dosage Theresa Terry MD Work Phone: [facility] Work Phone: 04-01-2014 hepatitis B vaccine, adult dosage Theresa Terry MD Work Phone: [facility] Work Phone: 10-30-2012 tetanus and diphther ia toxoids, not adsorbed, for adult use Theresa Terry MD Work Phone: [facility] Payers Date Payer Category Payer Private Health Insurance [id number] 2024 Self-pay 2023 Unknown [id number] 2022 Medicaid 2019 Unknown [id number] 2019 Unknown RONNY JEFFERSON xx xxxxxxxxxx 2019-Present [id number] .[id number] 2019 Unknown [id number]. 1.13.172.2 .7.3.198080.315 2019 Unknown [id number] 1983 Unknown [id number] 2.16.840.1.925316.3.579.2 .983 1983 Unknown [id number] 2.16840.1.699750.3.579.2 .983 1983 Unknown [id number] 2.16.840.1.120911.3.579.2 .983 1983 Unknown [id number] 2.16.840.1.493074.3.579.2 .983 1983 Unknown [id number] 2.16.840.1.629989.3.579.2 .983 1983 Unknown [id number] 2.16.840.1.789439.3.579.2 .983 1983 Unknown [id number] 2.16.840.1.867485.3.579.2 .983 1983 Unknown [id number] 2.16.840.1.411805.3.579.2 .983 1983 Unknown [id number] 2.16.840.1.542601.3.579.2 .983 1983 Unknown [id number] 2.16.840.1.143946.3.579.2 .983 1983 Unknown [id number] 2.16.840.1.495584.3.579.2 .903 1983 Unknown [id number] 2.16.840.1.102049.3.579.2 .983 1983 Unknown [id number] 2.16.840.1.241498.3.579.2 .983 1983 Unknown [id number] 2.840.1.203693.3.579.2 .983 1983 Unknown [id number] 2.840.1.178800.3.579.2 .627 1983 Unknown [id number] .840.1.012487.3.579.2 .627 1983 Unknown [id number] 2.840.1.125115.3.579.2 .627 1983 Unknown [id number] .840.1.130711.3.579.2 .62 1983 Unknown [id number] 2.840.1.422490.3.579.2 .627 1983 Unknown [id number] 2.840.1.330780.3.579.2 .627 Unknown [id number] 2.840.1.032976.3.579.2 .462 Unknown [id number] 840.1.384264.3.579.2 .462 Unknown [id number] .840.1.691851.3.579.2 .462 Unknown [id number] .840.1.228260.3.579.2 .462 Unknown [id number] 2.840.1.728051.3.579.2 .462 Unknown [id number] 2.840.1.611566.3.579.2 .462 Unknown [id number] 2.840.1.416452.3.579.2 .462 Unknown [id number] 2.840.1.299437.3.579.2 .462 Unknown [id number] 2.16.840.1.383624.3.579.2 .462 Unknown [id number] 2.16.840.1.317604.3.579.2 .462 Social History Date Type Detail Facility Start: 07-14-2020 End: 07-23-2025 Tobacco smoking status NHIS Current every day smoker [facility] Start: 2001 History of tobacco use Cigarette Smo ker [facility] Start: 07-14-2020 End: 02-28-2024 Cigarettes smoked current (pack per day) - Reported [facility] Start: 07-14-2020 End: 07-15-2024 Tobacco use and exposure Never used [facility] Start: 07-14-2020 End: 04-29-2024 Alcohol intake Current non-drinker of alcohol (finding) [facility] Start: 1985 Sex Assigned At Not on file O [facility] Start: 06-13-2022 End: 10-12-2022 Exposure to SARS-CoV-2 (event) Not sure [facility] Start: 08-25-2018 End: 02-28-2024 Alcohol intake No [facility] Start: 05-14-2017 End: 06-01-2023 Tobacco Comment 1 pack [facility] Start: 10-20-2019 Alcohol Comment None for 20 months C [facility] Adult Depression Screening Assessment 1 [facility] Start: 03-17-2024 Tobacco smoking status Heavy t obacco smoker (finding) [facility] Sex Assigned At [facility] Start: 07-15-2024 End: 01-27-2025 Alcoholic beverage intake Ex-drinker (finding) [facility] Start: 07-15-2024 Alcohol Comment Quit in 2018 [facility] Start: 1985 Sex assigned at Male C [facility] Start: 09-21-2024 Gender identity Identifies as male gender (finding) [facility] Start: 09-21-2024 Sexual orientation Heterosexual (fin alex) [facility] Start: 06-14-2014 Sex Male (finding) [facility] Start: 10-17-2017 Alcohol Alcohol [facility] Start: 10-17-2017 Drugs Drugs [facility] Start: 08-20-2017 Lives Lives [facility] Start: 08-12-2019 Tobacco Use Tobacco Use [facility] Start: 07-20-2025 Tobacco smoking stat us NHIS Current Light tobacco smoker [facility] NEGATED: Highlighted rowStart: NINF History of tobacco use Passive smoker [facility] Goals Date Patient Goal Desired Activity /State Functional Status Date Assessment Result Facility 02-22-2025 Functional Status 3pm-3am [facility] 11-25-2024 Functional Status Independent [facility] 11-25-2024 Functional Status ID band on, Allergy Band on, Call device within reach, Bed in low position, Wheels locked, Upper/Half-Length side-rails up, Safety level maintained [facility] 03-17-2024 Functional Status Standard Safet y ID band on, Allergy Band on, Call device within reach, Bed in low position, Wheels locked [facility] 01-05-2015 Are you deaf, or do you have serious difficulty hearing No 01/05/2015 2:44 PM Shruthi You LPN No [facility] 01-05-2015 Are you blind, or do you have serious difficulty seeing, even when wearing glasses No 01/05/2015 2:44 PM Shruthi You LPN No [facility] 01-05-2015 Do you have serious difficulty walking or climbing stairs No 01/05/2015 2:44 PM Shruthi You LPN No [facility] 01-05-2015 Do you have difficul ty dressing or bathing No 01/05/2015 2:44 PM Shruthi You LPN No [facility] 01-05-2015 Because of a physica l, mental, or emotional condition, do you have difficulty doing errands alone such as visiting a physician's office or shopping No 01/05/2015 2:44 PM Shruthi You LPN No [facility] Mental Status Date Assessment Result Facility 07-23-2025 Cognitive function Level Of Cons ciousness Follows Commands;Drowsy [facility] Work Phone: 07-23-2025 Cognitive function Voice/Name [facility] Work Phone: 03-12-2025 Cognitive function Level Of Cons ciousness Awake;Alert;Appropriate;Fol lows Commands [facility] Work Phone: 02-22-2025 Mental Status Orientation Oriented x 4 [facility] 11-25-2024 Mental Status Orientation Oriented x 4 [facility] 11-25-2024 Mental Status [facility] 03-17-2024 Mental Status Orientation Oriented x 4 [facility] 01-05-2015 Because of a physica l, mental, or emotional condition, do you have serious difficulty concentrating, remembering, or making decisions No 01/05/2015 2:44 PM Shruthi You LPN No [facility] Clinical Notes 08-31-2014 to 07-23-2025 Note Date & Type Note Facility 07-23-2025 Consult note Note Date/Time July 23, 2025 11:36am [facility] Medical Records Department [address] [place] [address] Pre-Anesthesia Evaluation 07/23/25 1126 MR#: [id number] Acct: [id number] Name: JOSAFAT ALVARENGA GHASSAN Rep #:[id number] : 1985 40 From: Cassius Ramachandran MD PCP: Care Physician,No Primary Status :REG SDC Y Race: C Location: [place] [address] ASA Classification* ASA Classification ASA Classification: 2 Assessment & Plan Anesthesia* Anesthesia Assessment Anesthesia Assessment: Discussed sedation and/or anesthesia options, risks, benefits, and alternatives with patient/parents/legal guardian/POA. Questions invited. The patient/parents/legal guardian/POA seems to understand and agrees to proceedwith anesthesia plan. Reviewed the physical assessment, medical history, allergy history and patient home medications list prior to surgery/procedure/anesthetic and documented any changes. Performed airway and anesthesia risk assessments. Anesthesia Type Anesthesia Type: MAC History Source History Obtained from:: Patient and Chart Anesthesia Focused Assessment* Temperature: 96.7 F Pulse Rate: 64 Blood Pressure: 120/72 Respiratory Rate: 16 Pulse Ox: 99 Oxygen Delivery Method: Room Air Airway Assessment Mouth opens: >3 cm Mallampati Score: II Teeth Condition: Intact Neck Range of motion (ROM): Full ROM Labs Anesthesia Preop lab: CBC WBC 9.1 K/mm3 (4.4-11.0) 05/01/25 20:02 05/01/25 RBC 4.93 M/mm3 (4.6-6.2) 05/01/25 20:02 05/01/25 Hgb 15.6 g/dL (13.0-16.5) 05/01/25 20:02 05/01/25 Hct 44.3 % (40-54) 05/01/25 20:02 05/01/25 Plt Count 253 K/mm3 (150-450) 05/01/25 20:02 05/01/25 CHEMISTRY Potassium 3.5 mmol/L (3.3-5.1) 05/01/25 20:02 05/01/25 Sodium 138 mmol/L (133-145) 05/01/25 20:02 05/01/25 Phosphorus 3.8 mg/dL (2.5-4.9) 10/19/17 06:30 10/19/17 BUN 4 mg/dL (4-19) 05/01/25 20:02 05/01/25 Creatinine 0.89 mg/dL (0.70-1.20) 05/01/25 20:02 05/01/25 Glucose 121 mg/dL (70-99) H 05/01/25 20:02 05/01/25 TSH 0.62 uIU/mL (0.358-3.74) 02/18/18 18:45 COAG PT 13.9 SECONDS (11.7-14.9) 10/08/17 20:00 Pre-Assessment Diagnosis/Proposed Procedure Planned Operative Procedure(s): EGD Anesthesia History Anesthesia History - sap treasury consultant: Anesthesia History - sap treasury consultant Hx Hospitalization No 07/22/25 10:58 Any Problems With Anesthesia No 07/22/25 10:58 Cholinesterase deficiency No 07/22/25 10:58 You/Your Family Experience No 07/22/25 10:58 fever (hyperthermia) with Relationship Recent Exposure to Contagious No 07/23/25 10:20 Disease Does patient have nerve No 07/22/25 10:58 stimulator Patient instructed to have device shut off --Does patient have Pacemaker No 07/23/25 10:20 or ICD? When Was Last Pacemaker Check QUESTION #4 FULL TEXT: You/Your Family Experience fever (hyperthermia) with Anesthesia Last Oral Intake Last Oral intake: Last Oral Intake NPO since 01:00 07/23/25 10:20 Meds taken in AM with sips of No 07/23/25 10:20 water? Meds patient instructed to take am of surgery PONV PONV - sap treasury consultant: PONV - sap treasury consultant Female No 07/22/25 10:58 HX of Motion Sickness No 07/22/25 10:58 HX of N/V After Surgery No 07/22/25 10:58 Non-Smoker No 07/22/25 10:58 Duration of Surgery greater No 07/22/25 10:58 than 60 minutes Number of Risk Factors PONV Score Height & Weight Height & Weight: Anesthesia: Height & Weight Height 5 ft 7 in 07/23/25 10:20 Weight: 78.8 kg 07/23/25 10:20 Body Mass Index (BMI) 27.1 07/23/25 10:20 Respiratory Assessment Respiratory Assessment - sap treasury consultant: Respiratory Tract Infection Hx - sap treasury consultant Hx Respiratory Tract Infection No 07/22/25 10:58 STOP Sleep Apnea STOP Sleep Apnea - sap treasury consultant: STOP Sleep Apnea - sap treasury consultant Hx Hypertension Yes: NO MED FOR MANY YRS 07/22/25 10:58 Hx Sleep Apnea No 07/22/25 10:58 CPAP No 10/14/17 01:40 BIPAP No 10/14/17 01:40 Do you snore loudly (louder Yes 07/22/25 10:58 than talking or can be heard Do you often feel tired/ Yes 07/22/25 10:58 fatigued/ sleepy during daytime? Has anyone observed you stop No 07/22/25 10:58 breathing during sleep? STOP Results Positive 07/22/25 10:58 QUESTION #5 FULL TEXT : Do you snore loudly (louder than talking or can be heard through closed doors)? Tobacco Use History Tobacco Use History - sap treasury consultant: Tobacco Use History - sap treasury consultant Tobacco Use Smoking Status Current every day smoker 07/22/25 10:58 Hx Tobacco Use Yes 07/22/25 10:58 Years Smoking Packs Smoked per Day Smoking Cessation Date was within the last 15 years Hx Smoking Cessation Date Hx Smoking Cessation No 07/22/25 10:58 Counseling Any additional information?: Yes Smoking Status: Current every day smoker (Patient did not smoke today.) Hematologic Medial History Hematologic Hx - sap treasury consultant: Hematologic Medical Hx - animal control specialist Hx of Blood Transfusion No 07/22/25 10:58 Hx of Transfusion in last 3 No 07/22/25 10:58 Months Date of Last Transfusion (if within last 3 months) Ever experience any problems No 07/22/25 10:58 with transfusion(s)? Specify any problems Hx of Preganancy in last 3 N/A 07/22/25 10:58 Months Nurse Filling Out Transfusion DSCHRIBER 07/22/25 10:58 & Questions: Date: 07/22/25 07/22/25 10:58 Time: 10:59 07/22/25 10:58 Patient unable to answer at this time (ie. confused, unrespo /Reproduction History /Reproductive History - sap treasury consultant: /Reproductive Hx- sap treasury consultant Hx Now No 07/22/25 10:58 Gestational Age (in weeks): EDC: Hx Hx Para Hx Section SAB No 07/22/25 10:58 Active Medications Active Medications: Current Medications Generic Name Dose Route Start Last Admin Trade Name Freq PRN Reason Stop Dose Admin Lactated Ringer's 1,000 mls @ 15 mls/hr 07/23/25 10:15 07/23/25 10:26 IV 15 mls/hr .Q48H SEVERIANO Administration PFSH Medical History Wears glasses ADHD Depression Diabetes Restless legs Injury of back Migraine headache Blackout Difficulty chewing Chronic constipation Smoker Asthma Shortness of breath on exertion History of edema Hypertension History of varicocele GERD (gastroesophageal reflux disease) History of esophageal dilatation Paranoid schizophrenia History of intravenous drug abuse Hepatitis C Marijuana smoker Home Medications ?Medication ?Instructions ?Recorded ?Last Taken ?Type paliperidone palmitate 234 mg/1.5 234 mg IM Q30D 03/12 Unknown History mL intramuscular syringe (Invega Sustenna) clonidine HCl 0.1 mg tablet 0.1 - 0.2 mg PO QHS Unknown History doxepin 50 mg capsule 50 mg PO QHS 07/15/25 Unknow n History hydroxyzine pamoate 25 mg capsule 25 mg PO TID PRN PRN anxiety 07/15/25 Unknown History quetiapine 50 mg tablet 50 mg PO QHS 07/15/25 Unknow n History albuterol sulfate 90 mcg/actuation 1 inh inhalation Q6 H PRN shortness 07/22/25 Unknown History breath activated powder inhaler of breath or wheezing atomoxetine 100 mg capsule 100 mg PO DAILY 07/22/25 Un known History benztropine 1 mg tablet 1 mg PO DAILY 07/22/25 Unkno wn History cholecalciferol (vitamin D3) 1,250 1,250 mcg PO QWEEK 07/22/25 Unknown History mcg (50,000 unit) capsule polyethylene glycol 3350 17 17 g PO DAILY 07/22/25 Unk nown History gram/dose oral powder Allergy/AdvReac Type Severity Reaction Status Date / Time latex Allergy Mild Rash Verified 07/23/25 10:19 cyclobenzaprine HCl (From Allergy Angioedema Verified 07/23/25 10:19 Flexeril) Family History Other Anxiety Arthritis Bowel disease Breast cancer Cancer Colon cancer Diabetes Hypertension Thyroid disorder Surgical History History of incision and drainage History of esophagogastroduodenoscopy (EGD) History of placement of ear tubes Hx of tonsillectomy Hx of vasectomy Social History Smoking Status: Current every day smoker tobacco type: cigarettes and e-cigarettes alcohol intake: former substance use type: does not use what type of physical activity do you participate in: none Review of Systems (Anesthesia) ROS Narrative System reviewed and no additional complaints, except as documented. Physical Exam Resp Auscultation: wheezes expiratory wheezes (Patient had expiratory wheezes. I hadhim use his rescue inhaler (albuterol). Afterwards wheezes are significantly improved. Okay to proceed.) 07/23/25 5871 <Electronically signed by Cassius hobson MD> Date _ Cassius Ramachandran MD Cosigner Signature: Date CC: ~ Signed [facility] Work Phone: 1(663) 735-226709-11-2025 Procedure note [facility] Medical Records Department [address] [place] [address] EGD Report MR#: [id number] Acct: [id number] Name: JOSAFAT ALVARENGA Rep #:[id number] : 1985 40 From: Anderson Conroy DO PCP: Care Physician,No Primary Status :[facility] Patient Name: Josafat Alvarenga Procedure Date: 07/23/2025 12:41 PM Date of : 1985 Age: 40 Procedure: Upper GI endoscopy Indications: Dysphagia Providers: Anderson Conroy DO Medicines: Monitored Anesthesia Care Patient Profile: This is a 40 year old male. Refer to note in patient chart for documentation of history and physical. Patient has symptoms of dysphagia with solids. Complications: No immediate complications. Procedure: Pre-Anesthesia Assessment: - Prior to the procedure, a History and Physical was performed, and patient medications and allergies were reviewed. The patient is competent. The risks and benefits of the procedure and the sedation options and risks were discussed with the patient. All questions were answered and informed consent was obtained. Patient identification and proposed procedure were verified by the physician in the pre-procedure area. Mental Status Examination: alert and oriented. Airway Examination: normal oropharyngeal airway and neck mobility. Respiratory Examination: clear to auscultation. CV Examination: normal. ASA Grade Assessment: II - A patient with mild systemic disease. After reviewing the risks and benefits, the patient was deemed in satisfactory condition to undergo the procedure. The anesthesia plan was to use monitored anesthesia care (MAC). Immediately prior to administration of medications, the patient was re-assessed for adequacy to receive sedatives. The heart rate, respiratory rate, oxygen saturations, blood pressure, adequacy of pulmonary ventilation, and response to care were monitored throughout the procedure. The physical status of the patient was re-assessed after the procedure. After obtaining informed consent, the endoscope was passed under direct vision. Throughout the procedure, the patient's blood pressure, pulse, and oxygen saturations were monitored continuously. The gastroscope was introduced through the mouth, and advanced to the second part of duodenum. The upper GI endoscopy was accomplished without difficulty. The patient tolerated the procedure well. Scope In: 12:54:07 PM Scope Out: 1:03:20 PM Total Procedure Duration Time 0 hours 9 minutes 13 seconds Findings: Mucosal changes including ringed esophagus, feline appearance, longitudinal furrows, small-caliber esophagus, circumferential folds and stenosis were found in the entire esophagus. Biopsies were obtained from the proximal and distal esophagus with cold forceps for histology of suspected eosinophilic esophagitis. Verification of patient identification for the specimen was done. A TTS dilator was passed through the scope. Dilation with a 15-16.5-18 mm balloon dilator was performed to 16 mm. The dilation site was examined and showed. Estimated blood loss was minimal. The entire examined stomach was normal. No gross lesions were noted in the entire examined duodenum. Impression: - Esophageal mucosal changes consistent with eosinophilic esophagitis. Dilated. - Normal stomach. - No gross lesions in the entire examined duodenum. - Biopsies were taken with a cold forceps for evaluation of eosinophilic esophagitis. Recommendation: - Discharge patient to home. - Resume previous diet. - Continue present medications. - Await pathology results. -Prednisolone 10 mL p.o. twice daily - Pantoprazole 40 mg p.o. twice daily Procedure Code(s): --- Professional --- 33251, Esophagogastroduodenoscopy, flexible, transoral; with transendoscopic balloon dilation of esophagus (less than 30 mm diameter) 27490, 59,51, Esophagogastroduodenoscopy, flexible, transoral; with biopsy, single or multiple CPT copyright 2021 [employer]. All rights reserved. The codes documented in this report are preliminary and upon ceramic chemist review may be revised to meet current compliance requirements. Anderson Conroy DO 07/23/2025 1:16:51 PM This report has been signed electronically. Number of Addenda: 0 Note Initiated On: 07/23/2025 12:41 PM 07/23/25 1317 Date _ Anderson Conroy DO Cosigner Signature: Date (if indicated) CC: No Primary Care Physician; Anderson Conroy ~ Date Dictated: 07/23/25 1241 Date Transcribed: Academic Advisement Director: RF Signed [facility]09-11-2025 Procedure note [facility] Medical Records Department [address] [facility] [place] [address] Provation Physician Letter MR#: [id number] Acct: [id number] Name: JOSAFAT ALVARENGA Rep #:[id number] : 1985 40 From: Anderson Conroy DO PCP: Care Physician,No Primary Status :REG [facility] 07/23/2025 No Primary Care Physician Re : Upper GI endoscopy procedure for Josafat Alvarenga Dear Care Physician This procedure was performed on July. My impressions and recommendations are as follows: Impressions : - Esophageal mucosal changes consistent with eosinophilic esophagitis. Dilated. - Normal stomach. - No gross lesions in the entire examined duodenum. - Biopsies were taken with a cold forceps for evaluation of eosinophilic esophagitis. Recommendations : - Discharge patient to home. - Resume previous diet. - Continue present medications. - Await pathology results. -Prednisolone 10 mL p.o. twice daily - Pantoprazole 40 mg p.o. twice daily My findings are described in the full procedure note, which is enclosed. If I can be of further assistance, please feel free to contact me at . Sincerely, Anderson Conroy DO 07/23/2025 1:16:51 PM This report has been signed electronically. 07/23/251316 Date _ Anderson Conroy DO Cosignmeng Signature: Date (if indicated) CC: No Primary Care Physician; Anderson Conroy DO ~ Date Dictated: 07/23/25 1241 Date Transcribed: Academic Advisement Director: RF Signed [facility]09-11-2025 Consult note [facility] Medical Records Department [address] [place] [address] Anesthesia Postop Eval I 07/23/25 1308 MR#: [id number] Acct: [id number] Name: JOSAFAT ALVARENGA Rep #:[id number] : 1985 40 From: Justus Mac CRNA PCP: Care Physician,No Primary Status :REG SD Y Race: C Location: [place] [address] Anesthesia: Postop Eval I Current Vital Signs Temperature: 97.4 F Pulse Rate: 66 Blood Pressure: 118/78 Respiratory Rate: 16 Pulse Ox: 97 Oxygen Delivery Method: Room Air Assessment Airway patent: Yes Spontaneous unlabored respirations: Yes Mental status: Calm and Asleep nausea: No Vomiting: No Anesthesia Complication: No Fluid Hydration Crystalloid volume administer (ml): 500 Total IV fluid infused: 500 Progress Note Anesthesia document: Postop Eval 1 completed: Yes 07/23/25 1308 ds EAR FLAP BINDER> Date _ Justus Mac EAR FLAP BINDER Cosigner Signature: Date CC: ~ Signed [facility]09-11-2025 History and physical note Author Anderson Conroy [facility] Note Date/Time July 23, 2025 10:15am [facility] Medical Records Department [address] [place] [address] History & Physical Exam 07/23/25 1012 MR#: [id number] Acct: [id number] Name: JOSAFAT ALVARENGA Rep #:[id number] : 1985 40 From: Anderson Conroy DO PCP: Care Physician,No Primary Status :REG [facility] Location: [place] [address] HPI - General General Date of Admission: 07/23/25 Date of Service: 07/23/25 Chief Complaint: dysphagia HPI Narrative JOSAFAT ALVARENGA, is a 40 M who presents with the Chief Complaint: dysphagia Details: ADMISSION February 2025 - GI CONSULT NOTE 02/22/2025 Attempted to see pt this morning but [...] thus left AMA prior to me seeing him - swirling esophagus diagnosed by [facility] - reports episodes of dysphagia date back to childhood - dysphagia to meat and bread - getting worse - dysphagia for a long time - weight is stable - scared to eat - reports even a pea can get stuck - Glucagon 1 month ago in [place] - EGD 2.5 months ago - 03/12/2025 seen in ER and Glucagon - reports he has had 2 EGD this year - personal h/o Asthma - chronic constipation, takes Miralax daily, typically has a BM every 3 days - denies any heart or lung disease - denies any kidney disease [facility] Medical History Wears glasses ADHD Depression Diabetes Restless legs Injury of back Migraine headache Blackout Difficulty chewing Chronic constipation Smoker Asthma Shortness of breath on exertion History of edema Hypertension History of varicocele GERD (gastroesophageal reflux disease) History of esophageal dilatation Paranoid schizophrenia History of intravenous drug abuse Hepatitis C Marijuana smoker Home Medications ?Medication ?Instructions ?Recorded ?Last Taken ?Type paliperidone palmitate 234 mg/1.5 234 mg IM Q30D 03/12 Unknown History mL intramuscular syringe (Invega Sustenna) clonidine HCl 0.1 mg tablet 0.1 - 0.2 mg PO QHS Unknown History doxepin 50 mg capsule 50 mg PO QHS 07/15/25 Unknow n History hydroxyzine pamoate 25 mg capsule 25 mg PO TID PRN PRN anxiety 07/15/25 Unknown History quetiapine 50 mg tablet 50 mg PO QHS 07/15/25 Unknow n History albuterol sulfate 90 mcg/actuation 1 inh inhalation Q6 H PRN shortness 07/22/25 Unknown History breath activated powder inhaler of breath or wheezing atomoxetine 100 mg capsule 100 mg PO DAILY 07/22/25 Un known History benztropine 1 mg tablet 1 mg PO DAILY 07/22/25 Unkno wn History cholecalciferol (vitamin D3) 1,250 1,250 mcg PO QWEEK 07/22/25 Unknown History mcg (50,000 unit) capsule polyethylene glycol 3350 17 17 g PO DAILY 07/22/25 Unk nown History gram/dose oral powder Allergy/AdvReac Type Severity Reaction Status Date / Time latex Allergy Mild Rash Verified 07/22/25 10:54 cyclobenzaprine HCl (From Allergy Angioedema Verified 07/22/25 10:54 Flexeril) Family History Other Anxiety Arthritis Bowel disease Breast cancer Cancer Colon cancer Diabetes Hypertension Thyroid disorder Surgical History History of incision and drainage History of esophagogastroduodenoscopy (EGD) History of placement of ear tubes Hx of tonsillectomy Hx of vasectomy Social History Smoking Status: Current every day smoker tobacco type: cigarettes and e- cigarettes alcohol intake: former substance use type: does not use what type of physical activity do you participate in: none ROS Constitutional Constitutional: Denies fatigue, fever(s), poor appetite, weight gain or weight loss Gastrointestinal Gastrointestinal: Denies belching, bloating, change in bowel habits, change in stool character, chewing difficulty, coffee ground emesis, constipation, cramping, diarrhea, dyspepsia, dysphagia, early satiety, excessive flatus, fecalincontinence, heartburn, hematemesis, hematochezia, hemorrhoids, loose stools, melena, nausea, odynophagia, rectal bleeding, tenesmus, vomiting or weight changes Physical Exam Const alert, oriented x3, no apparent distress and healthy appearing General Appearance: cooperative GI normal to inspection, nondistended, normoactive bowel sounds, soft to palpation,non-tender and non-distended Percussion: normal to percussion Rectal Exam: deferred Assessment & Plan Assessment/Plan (1) Eosinophilic esophagitis: (2) Foreign body in esophagus: QUALIFIERS: Encounter type: subsequent encounter Qualified Code(s): T18.108D - Unspecified foreign body in esophagus causing other injury, subsequent encounter (3) Dysphagia: PLAN: Assessment and Plan Assessment and Plan (1) Dysphagia: Plan 40-year-old male presents for initial consultation with complaints of dysphagia. He was seen in the emergency department at [facility] on 03/12/2025 for FBO which resolved with glucagon. He reports an ER visit in [place] 1 month ago for FBO that also resolved with glucagon. He is a poor historian and reports his last EGD with dilation was 2-1/2 months ago, although I am not able to find a record of this. He also reports an EGD with dilation this past February when admitted at [facility]; however; in reviewing the GI consult note from 02/22/2025 patient left AMA before being seen by GI. Only EGD on record was performed by Dr. Waldrop in 2019 for FBO. He denies any HB. He reports dysphagia primarily with bread and chicken, altnough, reports dysphagia with a single pea as well. I have scheduledhim for an EGD this week. 07/23/25 1015 <Electronically signed by Anderson Conroy DO> Cosigner Signature (if applicable): CC: No Primary Care Physician; Anderson Conroy DO~ Signed [facility] Work Phone: 1(436) 744-442909-11-2025 Consult note [facility] Medical Records Department [address] [place] [address] Pre-Anesthesia Evaluation 07/23/25 1126 MR#: [id number] Acct: [id number] Name: JOSAFAT ALVARENGA Rep #:[id number] : 1985 40 From: Cassius Ramachandran MD PCP: Care Physician,No Primary Status :REG SDC Y Race: C Location: [facility]11-1 ASA Classification* ASA Classification ASA Classification: 2 Assessment & Plan Anesthesia* Anesthesia Assessment Anesthesia Assessment: Discussed sedation and/or anesthesia options, risks, benefits, and alternatives with patient/parents/legal guardian/POA. Questions invited. The patient/parents/legal guardian/POA seems to understand and agrees to proceedwith anesthesia plan. Reviewed the physical assessment, medical history, allergy history and patient home medications list prior to surgery/procedure/anesthetic and documented any changes. Performed airway and anesthesia risk assessments. Anesthesia Type Anesthesia Type: MAC History Source History Obtained from:: Patient and Chart Anesthesia Focused Assessment* Temperature: 96.7 F Pulse Rate: 64 Blood Pressure: 120/72 Respiratory Rate: 16 Pulse Ox: 99 Oxygen Delivery Method: Room Air Airway Assessment Mouth opens: >3 cm Mallampati Score: II Teeth Condition: Intact Neck Range of motion (ROM): Full ROM Labs Anesthesia Preop lab: CBC WBC 9.1 K/mm3 (4.4-11.0) 05/01/25 20:02 05/01/25 RBC 4.93 M/mm3 (4.6-6.2) 05/01/25 20:02 05/01/25 Hgb 15.6 g/dL (13.0-16.5) 05/01/25 20:02 05/01/25 Hct 44.3 % (40-54) 05/01/25 20:02 05/01/25 Plt Count 253 K/mm3 (150-450) 05/01/25 20:02 05/01/25 CHEMISTRY Potassium 3.5 mmol/L (3.3-5.1) 05/01/25 20:02 05/01/25 Sodium 138 mmol/L (133-145) 05/01/25 20:02 05/01/25 Phosphorus 3.8 mg/dL (2.5-4.9) 10/19/17 06:30 10/19/17 BUN 4 mg/dL (4-19) 05/01/25 20:02 05/01/25 Creatinine 0.89 mg/dL (0.70-1.20) 05/01/25 20:02 05/01/25 Glucose 121 mg/dL (70-99) H 05/01/25 20:02 05/01/25 TSH 0.62 uIU/mL (0.358-3.74) 02/18/18 18:45 COAG PT 13.9 SECONDS (11.7-14.9) 10/08/17 20:00 Pre-Assessment Diagnosis/Proposed Procedure Planned Operative Procedure(s): EGD Anesthesia History Anesthesia History - sap treasury consultant: Anesthesia History - sap treasury consultant Hx Hospitalization No 07/22/25 10:58 Any Problems With Anesthesia No 07/22/25 10:58 Cholinesterase deficiency No 07/22/25 10:58 You/Your Family Experience No 07/22/25 10:58 fever (hyperthermia) with Relationship Recent Exposure to Contagious No 07/23/25 10:20 Disease Does patient have nerve No 07/22/25 10:58 stimulator Patient instructed to have device shut off --Does patient have Pacemaker No 07/23/25 10:20 or ICD? When Was Last Pacemaker Check QUESTION #4 FULL TEXT: You/Your Family Experience fever (hyperthermia) with Anesthesia Last Oral Intake Last Oral intake: Last Oral Intake NPO since 01:00 07/23/25 10:20 Meds taken in AM with sips of No 07/23/25 10:20 water? Meds patient instructed to take am of surgery PONV PONV - sap treasury consultant: PONV - sap treasury consultant Female No 07/22/25 10:58 HX of Motion Sickness No 07/22/25 10:58 HX of N/V After Surgery No 07/22/25 10:58 Non-Smoker No 07/22/25 10:58 Duration of Surgery greater No 07/22/25 10:58 than 60 minutes Number of Risk Factors PONV Score Height & Weight Height & Weight: Anesthesia: Height & Weight Height 5 ft 7 in 07/23/25 10:20 Weight: 78.8 kg 07/23/25 10:20 Body Mass Index (BMI) 27.1 07/23/25 10:20 Respiratory Assessment Respiratory Assessment - sap treasury consultant: Respiratory Tract Infection Hx - sap treasury consultant Hx Respiratory Tract Infection No 07/22/25 10:58 STOP Sleep Apnea STOP Sleep Apnea - sap treasury consultant: STOP Sleep Apnea - sap treasury consultant Hx Hypertension Yes: NO MED FOR MANY YRS 07/22/25 10:58 Hx Sleep Apnea No 07/22/25 10:58 CPAP No 10/14/17 01:40 BIPAP No 10/14/17 01:40 Do you snore loudly (louder Yes 07/22/25 10:58 than talking or can be heard Do you often feel tired/ Yes 07/22/25 10:58 fatigued/ sleepy during daytime? Has anyone observed you stop No 07/22/25 10:58 breathing during sleep? STOP Results Positive 07/22/25 10:58 QUESTION #5 FULL TEXT : Do you snore loudly (louder than talking or can be heard through closeddoors)? Tobacco Use History Tobacco Use History - sap treasury consultant: Tobacco Use History - sap treasury consultant Tobacco Use Smoking Status Current every day smoker 07/22/25 10:58 Hx Tobacco Use Yes 07/22/25 10:58 Years Smoking Packs Smoked per Day Smoking Cessation Date was within the last 15 years Hx Smoking Cessation Date Hx Smoking Cessation No 07/22/25 10:58 Counseling Any additional information?: Yes Smoking Status: Current every day smoker (Patient did not smoke today.) Hematologic Medial History Hematologic Hx - sap treasury consultant: Hematologic Medical Hx - animal control specialist Hx of Blood Transfusion No 07/22/25 10:58 Hx of Transfusion in last 3 No 07/22/25 10:58 Months Date of Last Transfusion (if within last 3 months) Ever experience any problems No 07/22/25 10:58 with transfusion(s)? Specify any problems Hx of Preganancy in last 3 N/A 07/22/25 10:58 Months Nurse Filling Out Transfusion DSCHRIBER 07/22/25 10:58 & Questions: Date: 07/22/25 07/22/25 10:58 Time: 10:59 07/22/25 10:58 Patient unable to answer at this time (ie. confused, unrespo /Reproduction History /Reproductive History - sap treasury consultant: /Reproductive Hx- sap treasury consultant Hx Now No 07/22/25 10:58 Gestational Age (in weeks): EDC: Hx Hx Para Hx Section SAB No 07/22/25 10:58 Active Medications Active Medications: Current Medications Generic Name Dose Route Start Last Admin Trade Name Freq PRN Reason Stop Dose Admin Lactated Ringer's 1,000 mls @ 15 mls/hr 07/23/25 10:15 07/23/25 10:26 IV 15 mls/hr .Q48H SEVERIANO Administration PFSH Medical History Wears glasses ADHD Depression Diabetes Restless legs Injury of back Migraine headache Blackout Difficulty chewing Chronic constipation Smoker Asthma Shortness of breath on exertion History of edema Hypertension History of varicocele GERD (gastroesophageal reflux disease) History of esophageal dilatation Paranoid schizophrenia History of intravenous drug abuse Hepatitis C Marijuana smoker Home Medications ?Medication ?Instructions ?Recorded ?Last Taken ?Type paliperidone palmitate 234 mg/1.5 234 mg IM Q30D 03/12 Unknown History mL intramuscular syringe ([employer] clonidine HCl 0.1 mg tablet 0.1 - 0.2 mg PO QHS Unknown History doxepin 50 mg capsule 50 mg PO QHS 07/15/25 Unknow n History hydroxyzine pamoate 25 mg capsule 25 mg PO TID PRN PRN anxiety 07/15/25 Unknown History quetiapine 50 mg tablet 50 mg PO QHS 07/15/25 Unknow n History albuterol sulfate 90 mcg/actuation 1 inh inhalation Q6 H PRN shortness 07/22/25 Unknown History breath activated powder inhaler of breath or wheezing atomoxetine 100 mg capsule 100 mg PO DAILY 07/22/25 Un known History benztropine 1 mg tablet 1 mg PO DAILY 07/22/25 Unkno wn History cholecalciferol (vitamin D3) 1,250 1,250 mcg PO QWEEK 07/22/25 Unknown History mcg (50,000 unit) capsule polyethylene glycol 3350 17 17 g PO DAILY 07/22/25 Unk nown History gram/dose oral powder Allergy/AdvReac Type Severity Reaction Status Date / Time latex Allergy Mild Rash Verified 07/23/25 10:19 cyclobenzaprine HCl (From Allergy Angioedema Verified 07/23/25 10:19 Flexeril) Family History Other Anxiety Arthritis Bowel disease Breast cancer Cancer Colon cancer Diabetes Hypertension Thyroid disorder Surgical History History of incision and drainage History of esophagogastroduodenoscopy (EGD) History of placement of ear tubes Hx of tonsillectomy Hx of vasectomy Social History Smoking Status: Current every day smoker tobacco type: cigarettes and e-cigarettes alcohol intake: former substance use type: does not use what type of physical activity do you participate in: none Review of Systems (Anesthesia) ROS Narrative System reviewed and no additional complaints, except as documented. Physical Exam Resp Auscultation: wheezes expiratory wheezes (Patient had expiratory wheezes. I hadhim use his rescue inhaler (albuterol). Afterwards wheezes are significantly improved. Okay to proceed.) 07/23/25 1136 joce JARRELL> Date _ Cassius Ramachandran MD Cosigner Signature: Date CC: ~ Signed [facility]09-11-2025 History and physical note [facility] Medical Records Department [address] [place] [address] History & Physical Exam 07/23/25 1012 MR#: [id number] Acct: [id number] Name: JOSAFAT ALVARENGA Rep #:[id number] : 1985 40 From: Anderson Conroy DO PCP: Care Physician,No Primary Status :REG [facility] Location: [place] [address] HPI - General General Date of Admission: 07/23/25 Date of Service: 07/23/25 Chief Complaint: dysphagia HPI Narrative JOSAFAT ALVARENGA, is a 40 M who presents with the Chief Complaint: dysphagia Details: ADMISSION February 2025 - GI CONSULT NOTE 02/22/2025 Attempted to see pt this morning but [...] thus left AMA prior to me seeing him - swirling esophagus diagnosed by [facility] - reports episodes of dysphagia date back to childhood - dysphagia to meat and bread - getting worse - dysphagia for a long time - weight is stable - scared to eat - reports even a pea can get stuck - Glucagon 1 month ago in [place] - EGD 2.5 months ago - 03/12/2025 seen in ER and Glucagon - reports he has had 2 EGD this year - personal h/o Asthma - chronic constipation, takes Miralax daily, typically has a BM every 3 days - denies any heart or lung disease - denies any kidney disease [facility] Medical History Wears glasses ADHD Depression Diabetes Restless legs Injury of back Migraine headache Blackout Difficulty chewing Chronic constipation Smoker Asthma Shortness of breath on exertion History of edema Hypertension History of varicocele GERD (gastroesophageal reflux disease) History of esophageal dilatation Paranoid schizophrenia History of intravenous drug abuse Hepatitis C Marijuana smoker Home Medications ?Medication ?Instructions ?Recorded ?Last Taken ?Type paliperidone palmitate 234 mg/1.5 234 mg IM Q30D 03/12 Unknown History mL intramuscular syringe ([employer]) clonidine HCl 0.1 mg tablet 0.1 - 0.2 mg PO QHS Unknown History doxepin 50 mg capsule 50 mg PO QHS 07/15/25 Unknow n History hydroxyzine pamoate 25 mg capsule 25 mg PO TID PRN PRN anxiety 07/15/25 Unknown History quetiapine 50 mg tablet 50 mg PO QHS 07/15/25 Unknow n History albuterol sulfate 90 mcg/actuation 1 inh inhalation Q6 H PRN shortness 07/22/25 Unknown History breath activated powder inhaler of breath or wheezing atomoxetine 100 mg capsule 100 mg PO DAILY 07/22/25 Un known History benztropine 1 mg tablet 1 mg PO DAILY 07/22/25 Unkno wn History cholecalciferol (vitamin D3) 1,250 1,250 mcg PO QWEEK 07/22/25 Unknown History mcg (50,000 unit) capsule polyethylene glycol 3350 17 17 g PO DAILY 07/22/25 Unk nown History gram/dose oral powder Allergy/AdvReac Type Severity Reaction Status Date / Time latex Allergy Mild Rash Verified 07/22/25 10:54 cyclobenzaprine HCl (From Allergy Angioedema Verified 07/22/25 10:54 Flexeril) Family History Other Anxiety Arthritis Bowel disease Breast cancer Cancer Colon cancer Diabetes Hypertension Thyroid disorder Surgical History History of incision and drainage History of esophagogastroduodenoscopy (EGD) History of placement of ear tubes Hx of tonsillectomy Hx of vasectomy Social History Smoking Status: Current every day smoker tobacco type: cigarettes and e-cigarettes alcohol intake: former substance use type: does not use what type of physical activity do you participate in: none ROS Constitutional Constitutional: Denies fatigue, fever(s), poor appetite, weight gain or weight loss Gastrointestinal Gastrointestinal: Denies belching, bloating, change in bowel habits, change in stool character, chewing difficulty, coffee ground emesis, constipation, cramping, diarrhea, dyspepsia, dysphagia, earlysatiety, excessive flatus, fecalincontinence, heartburn, hematemesis, hematochezia, hemorrhoids, loose stools, melena, nausea, odynophagia, rectal bleeding, tenesmus, vomiting or weight changes Physical Exam Const alert, oriented x3, no apparent distress and healthy appearing General Appearance: cooperative GI normal to inspection, nondistended, normoactive bowel sounds, soft to palpation,non-tender and non-distended Percussion: normal to percussion Rectal Exam: deferred Assessment & Plan Assessment/Plan (1) Eosinophilic esophagitis: (2) Foreign body in esophagus: QUALIFIERS: Encounter type: subsequent encounter Qualified Code(s): T18.108D - Unspecified foreign body in esophagus causing other injury, subsequent encounter (3) Dysphagia: PLAN: Assessment and Plan Assessment and Plan (1) Dysphagia: Plan 40-year-old male presents for initial consultation with complaints of dysphagia. He was seen in theemergency department at [facility] on 03/12/2025 for FBO which resolved with glucagon. He reports an ER visit in [place] 1 month ago for FBO that also resolved with glucagon. He is a poor historian and reports his last EGD with dilation was 2-1/2 months ago, although I am not able to find a record of this. He also reports an EGD with dilation this past February when admitted at [facility]; however; in reviewing the GI consult note from 02/22/2025 patient left AMA before being seen by GI. Only EGD on record was performed by Dr. Waldrop in 2019 for FBO. He denies any HB. He reports dysphagia primarily with bread and chicken, altnough, reports dysphagia with a single pea as well. I have scheduledhim for anEGD this week. 07/23/25 1015 Cosigner Signature (if applicable): CC: No Primary Care Physician; Anderson Conroy DO~ Signed [facility]09-11-2025 [facility] Medical Records Department [address] [place] [address] History Physical Exam 07/23/25 1012 MR#: [id number] Acct: [id number] Name: JOSAFAT ALVARENGA Rep #: [id number] : 1985 40 From: Anderson Conroy DO PCP: Care Physician,No Primary Status:[facility] Location: [place] [address] HPI - General General Date of Admission: 07/23/25 Date of Service: 07/23/25 Chief Complaint: dysphagia HPI Narrative JOSAFAT ALVARENGA, is a 40 M who presents with the Chief Complaint: dysphagia Details: ADMISSION February 2025 - GI CONSULT NOTE 02/22/2025 Attempted to see pt this morning but [...] thus left AMA prior to me seeing him - swirling esophagus diagnosed by [facility] - reports episodes of dysphagia date back to childhood - dysphagia to meat and bread - getting worse - dysphagia for a long time - weight is stable - scared to eat - reports even a pea can get stuck - Glucagon 1 month ago in [place] - EGD 2.5 months ago - 03/12/2025 seen in ER and Glucagon - reports he has had 2 EGD this year - personal h/o Asthma - chronic constipation, takes Miralax daily, typically has a BM every 3 days - denies any heart or lung disease - denies any kidney disease [facility] History Wears glasses ADHD Depression Diabetes Restless legs Injury of back Migraine headache Blackout Difficulty chewing Chronic constipation Smoker Asthma Shortness of breath on exertion History of edema Hypertension History of varicocele GERD (gastroesophageal reflux disease) History of esophageal dilatation Paranoid schizophrenia History of intravenous drug abuse Hepatitis C Marijuana smoker Home Medications ???Medication ???Instructions ???Recorded ???Last Taken ???Type paliperidone palmitate 234 mg/1.5 234 mg IM Q30D 03/12/25 Unknown H istory mL intramuscular syringe ([employer] clonidine HCl 0.1 mg tablet 0.1 - 0.2 mg PO QHS 07/15/25 Unkno wn History doxepin 50 mg capsule 50 mg PO QHS 07/15/25 Unknown Hist ory hydroxyzine pamoate 25 mg capsule 25 mg PO TID PRN PRN anxiety 02/03 Unknown History quetiapine 50 mg tablet 50 mg PO QHS 07/15/25 Unknown Hist ory albuterol sulfate 90 mcg/actuation 1 inh inhalation Q6H PRN shortne ss 07/22/25 Unknown History breath activated powder inhaler of breath or wheezing atomoxetine 100 mg capsule 100 mg PO DAILY 07/22/25 Unknown H istory benztropine 1 mg tablet 1 mg PO DAILY 07/22/25 Unknown His tory cholecalciferol (vitamin D3) 1,250 1,250 mcg PO QWEEK 07/22/25 Unkn own History mcg (50,000 unit) capsule polyethylene glycol 3350 17 17 g PO DAILY 07/22/25 Unknown His tory gram/dose oral powder Allergy/AdvReac Type Severity Reaction Status Date / Time latex Allergy Mild Rash Verified 07/22/25 10:54 cyclobenzaprine HCl (From Allergy Angioedema Verified 07/22/25 10:54 Flexeril) Family History Other Anxiety Arthritis Bowel disease Breast cancer Cancer Colon cancer Diabetes Hypertension Thyroid disorder Surgical History History of incision and drainage History of esophagogastroduodenoscopy (EGD) History of placement of ear tubes Hx of tonsillectomy Hx of vasectomy Social History Smoking Status: Current every day smoker tobacco type: cigarettes and e-cigarettes alcohol intake: former substance use type: does not use what type of physical activity do you participate in: none ROS Constitutional Constitutional: Denies fatigue, fever(s), poor appetite, weight gain or weight loss Gastrointestinal Gastrointestinal: Denies belching, bloating, change in bowel habits, change in stool character, chewing difficulty, coffee ground emesis, constipation, cramping, diarrhea, dyspepsia, dysphagia, early satiety, excessive flatus, fecal incontinence, heartburn, hematemesis, hematochezia, hemorrhoids, loose stools, melena, nausea, odynophagia, rectal bleeding, tenesmus, vomiting or weight changes Physical Exam Const alert, oriented x3, no apparent distress and healthy appearing General Appearance: cooperative GI normal to inspection, nondistended, normoactive bowel sounds, soft to palpation, non-tender and non- distended Percussion: normal to percussion Rectal Exam: deferred Assessment Plan Assessment/Plan (1) Eosinophilic esophagitis: (2) Foreign (more content not included)...[facility]09-08-2025 Evaluation note* Diagnosis Onset Date Resolution Status Admit Date Dysphagia noneactive July 20, 2025 2:17pm Dysphagia acute July 9:53am Foreign body in esophagus acute July 23, 2025 9:53am Eosinophilic esophagitis chronic July 23, 2025 9:53am [facility] Work Phone: [phone]) 460-265109-03-2025 Discharge summary [facility] Medical Records Department [address] [place] [address] Emergency Department Summary 07/15/25 MR#: [id number] Acct: [id number] Name: JOSAFAT ALVARENGA Rep #:[id number] : 1985 40 From: Freddy Batres MD PCP: Care Physician,No Primary Status :REG ER Location: ED HPI History of Present Illness Chief Complaint: Male Pain/Injury Informant: patient Pain Onset: Today and Hours Context: Sudden Onset Timing: Continuous Current Severity: Moderate Maximum Severity: Moderate Narrative Narrative: 40-year-old male history of paranoid schizophrenia, asthma and drug abuse. Prior varicocele that was surgically repaired. States he was having intercoursewith his significant other tonight. About an hour ago he had sudden onset of right testicle pain. Denies any dysuria. No hematuria. No trauma. Nohistoryof torsion. Prior similar symptoms: Yes Recent Illness/Hospitalization: No PFSH PFSH Medical History Paranoid schizophrenia Foreign body in throat History of intravenous drug abuse Erectile dysfunction Hepatitis C Marijuana smoker Home Medications ?Medication ?Instructions ?Recorded ?Last Taken ?Type paliperidone palmitate 234 mg/1.5 234 mg IM Q30D 03/12 Unknown History mL intramuscular syringe ([employer]) clonidine HCl 0.1 mg tablet 0.1 - 0.2 mg PO QHS Unknown History doxepin 50 mg capsule 50 mg PO QHS 07/15/25 Unknow n History hydroxyzine pamoate 25 mg capsule 25 mg PO TID PRN PRN anxiety 07/15/25 Unknown History quetiapine 50 mg tablet 50 mg PO QHS 07/15/25 Unknow n History Allergy/AdvReac Type Severity Reaction Status Date / Time latex Allergy Mild Rash Verified 07/15/25 21:13 cyclobenzaprine HCl (From Allergy Angioedema Verified 07/15/25 21:13 Flexeril) Social History Smoking Status: Current every day smoker tobacco type: cigarettes ROS ROS ED ROS Narrative Denies recent illness. Constitutional Constitutional ED: Denies fever(s) Eyes Eyes: Denies blurry vision ENT ENT ED: Denies ear pain Cardiovascular Cardiovascular: Denies chest pain Respiratory/Chest Respiratory/Chest: Denies cough or dyspnea Gastrointestinal Gastrointestinal: Denies abdominal pain Genitourinary Genitourinary ED: Denies dysuria, hematuria or urinary frequency Musculoskeletal Musculoskeletal: Denies arthralgias or back pain Integumentary Denies abscess Neurologic Neurologic: Denies headache(s) Psychiatric Psychiatric: Denies anxiety Endocrine Endocrinology: Denies polydipsia or polyphagia Hematologic/Lymphatic Hematologic/Lymphatic: Denies easy bleeding, easy bruising or lymphadenopathy Allergic/Immunologic Allergic/Immunologic ED: Denies mouth swelling, tongue swelling or urticaria EXAM Physical Exam Narrative Exam Narrative: 40-year-old male lying in bed vital signs stable afebrile. Significant other seen in the room. H EENT exam pupils round react light. Moist mucous membranes. Neck nontender. Lungs clear to auscultation. Heart regular rhythm no murmur. Rate about 90. Abdomen soft, nontender, nondistended normal bowelsounds without peritoneal signs. External exam slightly elevated right testicle positive cremasterics reflex bilaterally. No mass. No swelling. No edema. No discoloration or redness. No obvious hernia. Circumcised male. No inguinal lymphadenopathy. Moving all 4 extremities. Nontender. No edema. Normal strength and range of motion. He is awake and alert. Answering questions following commands. Const Vital Signs: 07/15/25 21:13 Temperature 97.4 F L Temperature Source Temporal Pulse Rate 87 Respiratory Rate 22 H Blood Pressure 146/94 H Blood Pressure Mean 111 Pulse Ox 98 Oxygen Delivery Method Room Air Positive well nourished and well developed; Negative for obese, cachectic, contractures or unkempt General Appearance ED: well developed and NAD; Negative for unkempt, cachectic or contractures Nutritional Appearance: Negative for cachectic or obese HEENT Reports moist mucous membranes normocephalic and atraumatic Eyes PERRL and EOMs intact bilaterally General Eye ED: Negative for pale conjunctiva or scleral icterus Neck no lymphadenopathy, supple and no JVD Resp normal respiratory effort and clear to auscultation bilaterally Cardio regular rate, regular rhythm, S1 normal heart sound, S2 normal heart sound and no murmurs Rate: Negative for bradycardia or tachycardic Rhythm: Negative for abnormal rhythm GI non-tender, non-distended and no masses Inspection: Negative for abdominal distention Auscultation: normoactive bowel sounds Palpation: soft, tender and guarding Back/Spine no CVA tenderness General Back: Negative for CVA tenderness Cervical Spine: Negative for cervical spine tenderness Thoracic Spine / Upper Back: Negative for thoracic spinal tenderness Lumbar Spine / Lower Back: Negative for lumbar spinal tenderness Extremity normal to inspection General Extremety ED: Negative for edema or pulses abnormal General Extremity: Negative for edema or pulses abnormal Neuro oriented x3, CN's II-XII intact bilaterally, moves all extremities, no focal motor deficits and no sensory deficits noted Motor Exam: strength 5/5 throughout Psych mental status grossly normal Appearance: Negative for unkempt Thought Process: normal thought process Thought Content: normal thought content Skin Lesions: no lesions Rashes: no rashes MDM MDM MDM Narrative Medical decision making narrative: 40-year-old male right testicle pain. Ultrasound being obtained to evaluate forpossible torsion. UA. Clinically there is no swelling or discoloration. I do not think there is infection especially sudden onset. He will be given [place] for pain. Repeat exam around 11:05 PM unchanged. I went over the patient's test results his UA was negative his ultrasound showed bilateral hydroceles but no torsion. He will be treated with Motrin and Tylenolfor pain and follow-up with urology as needed. History & Record Review Discussion w/independent historian: Patient Additional record(s) reviewed:: Prior inpatient record, Prior outpatient record,Prior ED visit and Prior labs Lab Data Attestation: I reviewed the patient's lab results. Lab results narrative: UA is unremarkable. No white or red cells. No nitrites nor bacteria. Labs: Laboratory Results - last 24 hr 07/15/25 22:15 Urine Color Yellow Urine Clarity Clear Urine pH 7.0 Ur Specific [place] 1.010 Urine Protein 15 H Urine Glucose (UA) Normal Urine Ketones Negative Urine Occult Blood Negative Urine Nitrite Negative Urine Bilirubin Negative Urine Urobilinogen Normal Ur Leukocyte Esterase Negative Urine RBC 0 SEEN Urine WBC 0 SEEN Ur Squamous Epith Cells 0 SEEN Urine Bacteria 0 SEEN Urine Mucus 0 SEEN Radiography Diagnostic Testing: Clinical Impression(s) from Imaging Studies Testicular Ultrasound 07/15/25 21:17 IMPRESSION: Trace nonspecific bilateral hydroceles with granular debris. Otherwise, normal symmetric sonographic appearance of the testes and epididymi. No evidence of torsion or epididymo-orchitis. [id number] Triage Chief Complaint: Male Pain/Injury ED Provider: Freddy Batres Dx/Rx/DC Orders Prescriptions: No Action doxepin 50 mg capsule 50 mg PO QHS clonidine HCl 0.1 mg tablet 0.1 - 0.2 mg PO QHS hydroxyzine pamoate 25 mg capsule 25 mg PO TID PRN PRN (Reason: anxiety) quetiapine 50 mg tablet 50 mg PO QHS Invega Sustenna 234 mg/1.5 mL syringe 234 mg IM Q30D Primary Care Provider: Care Physician,No Primary Referrals: Care Physician,No Primary [Primary Care Provider] - Print Language: Gibraltarian What to do if you have Problems For any increased pain, shortness of breath, bleeding, nausea or vomiting, chestpain, or any unexpected problems, contact your Primary Care Provider. Call [facility] ([phone]) or report tothe closest Emergency Room. Call 911 if necessary. 07/15/25 2305 Cosigner Signature (if applicable): CC: No Primary Care Physician ~ Signed [facility]09-03-2025 Radiology Diagnostic study note [facility] Imaging Services [address] [place], [place] [address] Testicular with Arterial Flow MR#: [id number] Acct: [id number] Name: JOSAFAT ALVARENGA Rep #: [id number] : 1985 M 40 From: Leonel Cervantes MD PCP: Care Physician,No Primary Status: PRE ER Study:Testicular with Arterial Flow Date of E xam: 07/15/25 Exam# [id number] Ordering Dr: Kelly Coleman MD PROCEDURE: US TESTICULAR WITH ARTERIAL FLOW 07/15/2025 REASON FOR EXAM: Right testicular pain sudden onset during intercourse TECHNIQUE: Procedure Code: USTES Modality: US Procedure: TESTICULAR WITH ARTERIAL FLOW COMPARISON: None available. FINDINGS: Bilateral testes and epididymi have a normal symmetric sonographic appearance. Homogeneous parenchymal echotexture. Blood flow is demonstrated bilaterally on color Doppler, which appears symmetric. No evidence for torsion or epididymo-orchitis. There is a nonspecific single focus of microcalcification within the left testicle. Right testicle measures 5.1 x 3.1 x 2.2 cm. Left testicle measures 5.3 x 2.9 x 2.3 cm. There are trace bilateral nonspecific hydroceles with granular debris. No evidence of varicocele on either side. US/Testicular with Arterial Flow IMPRESSION: Trace nonspecific bilateral hydroceles with granular debris. Otherwise, normal symmetric sonographic appearance of the testes and epididymi. No evidence of torsion or epididymo-orchitis. Reading Location: [id number] CC: Dr. Corky Coleman MD; No Primary Care Physician ~ Academic Advisement Director: Signed [facility]09-03-2025 Hospital Discharge instructions Patient Education 07/15/2025 19:33:48 Wrist Sprain Wrist Sprain A sprain is an injury to the ligaments or capsule that holds a joint together. There are no broken bones. Most sprains take about 3 to 6 weeks to heal. If it a severe sprain where the ligament is completely torn, it can take months to recover. Most wrist sprains are treated with a splint, wrist brace, or elastic wrap for support. Severe sprains may require surgery. Home care Keep your arm elevated to reduce pain and swelling. This is very important during the first 48 hours. Apply an ice pack over the injured area for 15 to 20 minutes every 3 to 6 hours. You should do thisfor the first 24 to 48 hours. You can make an ice pack by filling a plastic bag that seals at the top with ice cubes and then wrapping it with a thin towel. Continue to use ice packs for relief of pain and swelling as needed. As the ice melts, be careful to avoid getting your wrap, splint, or cast wet. After 48 hours, apply heat (warm shower or warm bath) for 15 to 20 minutes several times a day,or alternate ice and heat. You may use udgo-aeo-rzaczzw pain medicine to control pain, unless another pain medicine was prescribed. If you have chronic liver or kidney disease or ever had a stomach ulcer or gastrointestinal bleeding, talk with your doctor before using these medicines. If you were given a splint or brace, wear it for the time advised by your doctor. Follow-up care Follow up with your healthcare provider, or as advised. Any X-rays you had today don t show any broken bones, breaks, or fractures. Sometimes fractures don t show up on the first X-ray. Bruises and sprains can sometimes hurt as much as a fracture. These injuries can take time to heal completely. Ifyour symptoms don t improve or they get worse, talk with your doctor. You may need a repeat X-ray. I f X-rays were taken, you will be told of any new findings that may affect your care. When to seek medical advice Call your healthcare provider right away if any of these occur: Pain or swelling increases Fingers or hand becomes cold, blue, numb, or tingly [phone] [employer]. [address] [place] [address]. All rights reserved. This information is not intended as a substitute for professional medical care. Always follow yourhealthcare professional's instructions. Follow Up Care 07/15/2025 18:59:35 With:Call Physician Referral Address:Unknown When:2-4 days [facility] 09-03-2025 Note Discharge Instructions Thank you for allowing [facility] to assist you with your healthcare needs. The following is importantdischarge information regarding your hospital visit. Diagnosis from Today's Visit Wrist sprain What to Do Next Instructions from Your Care Team Discharge Home Equipment - Ordered -- *Other specify in special instructions, 99 month(s), velcro wrist splint- left, 07/15/25 19:33:00 EDT Post Acute Orders No qualifying data available. You Need to Schedule the Following Appointments Follow Up with Call Physician Referral When:Within 2-4 days Allergies Flexeril Latex hives Medications Please ask your primary doctor or pharmacist before taking any other medication not listed, including over the counter drugs, herbal medications, vitamins and or supplements as they may interact withyour home medications. What How Much When Instructions Last Dose Unchanged acetaminophen-HYDROcodone ([place] 325- 5 mg oraltablet) 1 tab(s) by [...] medication providers or retail pharmacies. Education Materials Wrist Sprain A sprain is an injury to the ligaments or capsule that holds a joint together. There are no broken bones. Most sprains take about 3 to 6 weeks to heal. If it a severe sprain where the ligament is completely torn, it can take months to recover. Most wrist sprains are treated with a splint, wrist brace, or elastic wrap for support. Severe sprains may require surgery. Home care Keep your arm elevated to reduce pain and swelling. This is very important during the first 48 hours. Apply an ice pack over the injured area for 15 to 20 minutes every 3 to 6 hours. You should do thisfor the first 24 to 48 hours. You can make an ice pack by filling a plastic bag that seals at the top with ice cubes and then wrapping it with a thin towel. Continue to use ice packs for relief of pain and swelling as needed. As the ice melts, be careful to avoid getting your wrap, splint, or cast wet. After 48 hours, apply heat (warm shower or warm bath) for 15 to 20 minutes several times a day,or alternate ice and heat. You may use ukdq-lib-orsergv pain medicine to control pain, unless another pain medicine was prescribed. If you have chronic liver or kidney disease or ever had a stomach ulcer or gastrointestinal bleeding, talk with your doctor before using these medicines. If you were given a splint or brace, wear it for the time advised by your doctor. Follow-up care Follow up with your healthcare provider, or as advised. Any X-rays you had today don t show any broken bones, breaks, or fractures. Sometimes fractures don t show up on the first X-ray. Bruises and sprains can sometimes hurt as much as a fracture. These injuries can take time to heal completely. Ifyour symptoms don t improve or they get worse, talk with your doctor. You may need a repeat X-ray. I f X-rays were taken, you will be told of any new findings that may affect your care. When to seek medical advice Call your healthcare provider right away if any of these occur: Pain or swelling increases Fingers or hand becomes cold, blue, numb, or tingly [phone] [employer]. [address] [place] [address]. All rights reserved. This information is not intended as a substitute for professional medical care. Always follow yourhealthcare professional's instructions. Additional Information VACCINATE! IT SAVES LIVES! Members of the community who have not yet received the COVID-19 vaccine and would like to receive it can visit one of [facility] vaccine clinics. There are many vaccine clinic locations within the [facility]. For locations and available times, please visit www.gettheshot.coronavirus.[place].gov/. It is important to note that some COVID mobile vaccine clinics are held outdoors and may be canceled in rainy or stormy conditions. To learn more about pediatric vaccinations (ages 5-11), we invite you to visit the [facility] webpage. https://www.[email or web address].org/pages/9826-Nsetg-Rbpgrwugdqg-Gdffdgrwdg-Cafpz-Vfw stions.htmlTo learn more about the COVID-19 vaccine, we invite you to visit the CDC website for a list of frequently asked questions. https://www.cdc.gov/coronavirus/2019-ncov/vaccines/faq.html [facility] Patient Portal Access Instructions: Stay connected with your healthcare team and access your personal medical information anytime with the [facility] Patient Portal. If you would like a full copy of your medical records please contact the [facility] Medical Records Department Sunday through Sunday between 8a.m. and 4:30p.m. Please follow the directions below to access the portal: 1.Access the email account you provided upon registration to the hospital.2.Look for an invitation email from [facility].3.Open the email and access the invitation link: Accept Invitation to [facility].Fill in the required bobo to create your account. Sign into [email or web address] with your username and password that you [...] you will allow to register on the [facility] Patient Portal for access to your information. You can also access the [facility] Patient Portal on the [employer]. Simply click on Health Records under [email or web address] and then click on the [facility] logo. HOW TO SAFELY DISPOSE OF PRESCRIPTION [...] Call your local pharmacy or go to http://pMDsoft.ExactCost/3T4Fi9n to find one close to you.3.Make use of household items: Use cat litter or old coffee grounds to dispose medications if other options arenot available. Mix your drugs with these household products, seal them in an airtight container andthrow it into the garbage. Call [facility]: [phone] to be sure your drugs can be [...] a CHART COPY Signatures Patient Education Materials Wrist Sprain Medication Leaflets My discharge plan and instructions have been reviewed and explained to me and I,JOSAFAT ALVARENGA understand my current condition and have read and understand these discharge instructions. I have received a written copy of the plan/instructions. If I have questions, I am aware that I should contact my doctor. 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 Likely bone island in distal radius.. No radiopaque foreign body. Nonspecific soft tissue swelling and wrist. IMPRESSION: No acute fracture or dislocation. I have personally reviewed the images of this examination and agree with the resident's findings and interpretation. Interpreted by: Malik Winters Preliminary Report By: Camilo Carlisle Electronically signed By Malik Winters Dictated Date: 07/15/2025 7:27:21 PM Prelim Date: 07/15/2025 7:28:27 PM Sign Date: 07/15/2025 7:40:03 PM Ordering Provider: JARVIS [facility]09-03-2025 Discharge summary Author Freddy Batres [facility] Note Date/Time July 15, 2025 11:05pm [facility] Medical Records Department [address] [place] [address] Emergency Department Summary 07/15/25 MR#: [id number] Acct: [id number] Name: JOSAFAT ALVARENGA Rep #:[id number] : 1985 40 From: Freddy Batres MD PCP: Care Physician,No Primary Status :REG ER Location: ED HPI History of Present Illness Chief Complaint: Male Pain/Injury Informant: patient Pain Onset: Today and Hours Context: Sudden Onset Timing: Continuous Current Severity: Moderate Maximum Severity: Moderate Narrative Narrative: 40-year-old male history of paranoid schizophrenia, asthma and drug abuse. Prior varicocele that was surgically repaired. States he was having intercoursewith his significant other tonight. About an hour ago he had sudden onset of right testicle pain. Denies any dysuria. No hematuria. No trauma. No historyof torsion. Prior similar symptoms: Yes Recent Illness/Hospitalization: No PFSH [facility] Medical History Paranoid schizophrenia Foreign body in throat History of intravenous drug abuse Erectile dysfunction Hepatitis C Marijuana smoker Home Medications ?Medication ?Instructions ?Recorded ?Last Taken ?Type paliperidone palmitate 234 mg/1.5 234 mg IM Q30D 03/12 Unknown History mL intramuscular syringe (Invega Sustenna) clonidine HCl 0.1 mg tablet 0.1 - 0.2 mg PO QHS Unknown History doxepin 50 mg capsule 50 mg PO QHS 07/15/25 Unknow n History hydroxyzine pamoate 25 mg capsule 25 mg PO TID PRN PRN anxiety 07/15/25 Unknown History quetiapine 50 mg tablet 50 mg PO QHS 07/15/25 Unknow n History Allergy/AdvReac Type Severity Reaction Status Date / Time latex Allergy Mild Rash Verified 07/15/25 21:13 cyclobenzaprine HCl (From Allergy Angioedema Verified 07/15/25 21:13 Flexeril) Social History Smoking Status: Current every day smoker tobacco type: cigarettes ROS ROS ED ROS Narrative Denies recent illness. Constitutional Constitutional ED: Denies fever(s) Eyes Eyes: Denies blurry vision ENT ENT ED: Denies ear pain Cardiovascular Cardiovascular: Denies chest pain Respiratory/Chest Respiratory/Chest: Denies cough or dyspnea Gastrointestinal Gastrointestinal: Denies abdominal pain Genitourinary Genitourinary ED: Denies dysuria, hematuria or urinary frequency Musculoskeletal Musculoskeletal: Denies arthralgias or back pain Integumentary Denies abscess Neurologic Neurologic: Denies headache(s) Psychiatric Psychiatric: Denies anxiety Endocrine Endocrinology: Denies polydipsia or polyphagia Hematologic/Lymphatic Hematologic/Lymphatic: Denies easy bleeding, easy bruising or lymphadenopathy Allergic/Immunologic Allergic/Immunologic ED: Denies mouth swelling, tongue swelling or urticaria EXAM Physical Exam Narrative Exam Narrative: 40-year-old male lying in bed vital signs stable afebrile. Significant other seen in the room. H EENT exam pupils round react light. Moist mucous membranes. Neck nontender. Lungs clear to auscultation. Heart regular rhythm no murmur. Rate about 90. Abdomen soft, nontender, nondistended normal bowel sounds without peritoneal signs. External exam slightly elevated right testicle positive cremasterics reflex bilaterally. No mass. No swelling. No edema. No discoloration or redness. No obvious hernia. Circumcised male. No inguinal lymphadenopathy. Moving all 4 extremities. Nontender. No edema. Normal strength and range of motion. He is awake and alert. Answering questions following commands. Const Vital Signs: 07/15/25 21:13 Temperature 97.4 F L Temperature Source Temporal Pulse Rate 87 Respiratory Rate 22 H Blood Pressure 146/94 H Blood Pressure Mean 111 Pulse Ox 98 Oxygen Delivery Method Room Air Positive well nourished and well developed; Negative for obese, cachectic, contractures or unkempt General Appearance ED: well developed and NAD; Negative for unkempt, cachectic or contractures Nutritional Appearance: Negative for cachectic or obese HEENT Reports moist mucous membranes normocephalic and atraumatic Eyes PERRL and EOMs intact bilaterally General Eye ED: Negative for pale conjunctiva or scleral icterus Neck no lymphadenopathy, supple and no JVD Resp normal respiratory effort and clear to auscultation bilaterally Cardio regular rate, regular rhythm, S1 normal heart sound, S2 normal heart sound and no murmurs Rate: Negative for bradycardia or tachycardic Rhythm: Negative for abnormal rhythm GI non-tender, non-distended and no masses Inspection: Negative for abdominal distention Auscultation: normoactive bowel sounds Palpation: soft, tender and guarding Back/Spine no CVA tenderness General Back: Negative for CVA tenderness Cervical Spine: Negative for cervical spine tenderness Thoracic Spine / Upper Back: Negative for thoracic spinal tenderness Lumbar Spine / Lower Back: Negative for lumbar spinal tenderness Extremity normal to inspection General Extremety ED: Negative for edema or pulses abnormal General Extremity: Negative for edema or pulses abnormal Neuro oriented x3, CN's II-XII intact bilaterally, moves all extremities, no focal motor deficits and no sensory deficits noted Motor Exam: strength 5/5 throughout Psych mental status grossly normal Appearance: Negative for unkempt Thought Process: normal thought process Thought Content: normal thought content Skin Lesions: no lesions Rashes: no rashes MDM MDM MDM Narrative Medical decision making narrative: 40-year-old male right testicle pain. Ultrasound being obtained to evaluate forpossible torsion. UA. Clinically there is no swelling or discoloration. I do not think there is infection especially sudden onset. He will be given [place] for pain. Repeat exam around 11:05 PM unchanged. I went over the patient's test results his UA was negative his ultrasound showed bilateral hydroceles but no torsion. He will be treated with Motrin and Tylenol for pain and follow-up with urology as needed. History & Record Review Discussion w/independent historian: Patient Additional record(s) reviewed:: Prior inpatient record, Prior outpatient record,Prior ED visit and Prior labs Lab Data Attestation: I reviewed the patient's lab results. Lab results narrative: UA is unremarkable. No white or red cells. No nitrites nor bacteria. Labs: Laboratory Results - last 24 hr 07/15/25 22:15 Urine Color Yellow Urine Clarity Clear Urine pH 7.0 Ur Specific [place] 1.010 Urine Protein 15 H Urine Glucose (UA) Normal Urine Ketones Negative Urine Occult Blood Negative Urine Nitrite Negative Urine Bilirubin Negative Urine Urobilinogen Normal Ur Leukocyte Esterase Negative Urine RBC 0 SEEN Urine WBC 0 SEEN Ur Squamous Epith Cells 0 SEEN Urine Bacteria 0 SEEN Urine Mucus 0 SEEN Radiography Diagnostic Testing: Clinical Impression(s) from Imaging Studies Testicular Ultrasound 07/15/25 21:17 IMPRESSION: Trace nonspecific bilateral hydroceles with granular debris. Otherwise, normal symmetric sonographic appearance of the testes and epididymi. No evidence of torsion or epididymo-orchitis. Reading [id number] Discharge Plan Triage Chief Complaint: Male Pain/Injury ED Provider: Freddy Batres Dx/Rx/DC Orders Prescriptions: No Action doxepin 50 mg capsule 50 mg PO QHS clonidine HCl 0.1 mg tablet 0.1 - 0.2 mg PO QHS hydroxyzine pamoate 25 mg capsule 25 mg PO TID PRN PRN (Reason: anxiety) quetiapine 50 mg tablet 50 mg PO QHS Invega Sustenna 234 mg/1.5 mL syringe 234 mg IM Q30D Primary Care Provider: Care Physician,No Primary Referrals: Care Physician,No Primary [Primary Care Provider] - Print Language: Gibraltarian What to do if you have Problems For any increased pain, shortness of breath, bleeding, nausea or vomiting, chestpain, or any unexpected problems, contact your Primary Care Provider. Call [facility] ([phone]) or report to the closest Emergency Room. Call 911 if necessary. 07/15/252304 <Electronically signed by Freddy Batres MD> Cosigner Signature (if applicable): CC: No Primary Care Physician ~ Signed [facility] Work Phone: [phone] 450-301608-27-2025 Radiology Diagnostic study note [facility] Imaging Services [address] [place] [address] Wrist min 3 Views MR#: [id number] Acct: [id number] Name: JOSAFAT ALVARENGA Rep #: [id number] : 1985 M 40 From: Leonel Cervantes MD PCP: Care Physician,No Primary Status: PRE ER Study:Wrist min 3 Views Date of Exam: Exam# [id number] Ordering Dr: Lula ,Ivan P. PROCEDURE: LEFT WRIST MIN 3 VIEWS 07/08/2025 REASON FOR EXAM: TRAUMA TECHNIQUE: LEFT WRIST MIN 3 VIEWS COMPARISON: None. FINDINGS: No acute fracture or dislocation. Alignment is anatomic. Preserved joint spaces.No aggressive osseous lesion. No marked soft tissue swelling or radiopaque foreign body. RAD/Wrist min 3 Views IMPRESSION: No acute fracture or dislocation. Reading Location: [id number] CC: ED PHYSICIAN PROVIDER; No Primary Care Physician ~ Academic Advisement Director: Signed [facility]06-20-2025 Radiology Diagnostic study note [facility] Imaging Services [address] [place] [address] [id number] Acute Abdomen Inc Chest MR#: [id number] Acct: [id number] Name: JOSAFAT ALVARENGA Rep #: [id number] : 1985 M 39 From: Petrona Carrasco MD PCP: Care Physician,No Primary Status: PRE ER Study:Acute Abdomen Inc Chest Date of Exam: 05/01/25 Exam# [id number] Ordering Dr: Ramo Heck DO EXAM: XR Abdomen, 2 Views and XR Chest, 1 View CLINICAL INDICATION: PAIN TECHNIQUE: Frontal view of the chest, frontal view of the abdomen/pelvis and upright or decubitus view of the abdomen. COMPARISON: No relevant prior studies available. FINDINGS: LUNGS AND PLEURAL SPACES: Unremarkable. No consolidation. No pneumothorax. HEART: Unremarkable. No cardiomegaly. MEDIASTINUM: Unremarkable. Normal mediastinal contour. INTRAPERITONEAL SPACE: No free air. GASTROINTESTINAL TRACT: Fecal retention in the colon consistent with constipation. No dilation. BONES/JOINTS: Unremarkable. No acute fracture. RAD/Acute Abdomen Inc Chest IMPRESSION: Fecal retention in the colon consistent with constipation. Reading Location: [facility] CC: Dr. Ramo Heck, DO; No Primary Care Physician ~ Academic Advisement Director: Signed [facility]04-16-2025 NoteHNO ID: [id number] Author: DAVONTE AJ APRN.CNP Service: ? Author Type: Nurse Practitioner Type: Progress Notes Filed: 02/25/2025 15:50 Note Text: The patient did not show up for this appointment.[facility] 02-25-2025 History of Present illness Narrative* Davonte Aj APRN.CNP - 02/25/2025 3:49 PM EDT The patient did not show up for this appointment. [facility] Evaluation + Plan note Extracted from: Title:History and Physical Author:JERAMIE BRUNER Date:02/22/25 [...] anticipate a two midnight stay., Constant Order [facility] 04-13-2025 Gastroenterology Consult note Date of Service [...] MIKHAIL LORA MD on 02/22/2025 09:34 AM [facility] [id number] History and physical note Date of Service [...] suspension, extended release 1,560 mg, Intramuscular, q6mo [place]town 325- 5 mg oral tablet 1 tab(s), [...] JERAMIE BRUNER MD on 02/22/2025 02:08 AM [facility] [id number] Instructions* Patient Instructions* Fauzia Sorenson PA-C - 02/08/2025 11:40 PM EDT Orders still active from 07/2024 call to schedule locally near [place] documented in this encounterVan Wert County Hospital03-30-2025 NoteHNO ID: [id number] Author: FAUZIA SORENSON PA-C Service: ? Author Type: Physician Acid Washer Operator Type: Progress Notes Filed: 02/08/2025 23:40 Note Text: [facility] EST PATIENT CLINIC NOTE NAME: [...] PFPT more local to him Recommend calling orthophotography technician for PFPT and see what's available near [facility] [place] LUTS: No change still having same LUTS [...] pain in male 07/15/2024 Premature ejaculation Schizophrenia ([facility]) Seeing Dr. Vicente Seasonal allergies Tobacco use [...] MT, PA-C after PFPT [facility]INCENT Leal MT, [facility]Cl[facility] History of Present illness Narrative* Fauzia Sorenson PA-C - 02/08/2025 11:35 PM EDT Images from the original note were not included. [facility] [place] EST PATIENT CLINIC NOTE [...] PFPT more local to him Recommend calling orthophotography technician for PFPT and see what's available near [facility] [place] LUTS: No change still having same LUTS [...] PA-C after PFPT VINCENT Leal MT, PA-C documented in this encounterVan Wert County Hospital01-14-2025 Hospital Discharge instructions Patient Education 11/25/2024 [...] Swelling, pain or redness in one leg [id number] [employer]. [address] [place] [address]. All rights reserved. This information is not intended as a substitute for professional medical care. Always follow yourhealthcare professional's instructions. Follow Up Care 11/25/2024 11:26:53 With:BROOKE GOLDBERG MD Address: [address] [place] [address]- When:2-4 days [facility] 01-14-2025 Note Discharge Instructions Thank you for allowing [facility] to assist you with your healthcare needs. The following is importantdischarge information regarding your hospital visit. Diagnosis from Today's Visit Atypical chest pain What to Do Next Instructions from Your Care Team No qualifying data available. Post Acute Orders No qualifying data available. You Need to Schedule the Following Appointments Follow Up with BROOKE GOLDBERG MD When:Within 2-4 days Where:[facility] [place], [place] [id number]- Allergies Flexeril Latex hives Medications Please ask your primary doctor or pharmacist before taking any other medication not listed, including over the counter drugs, herbal medications, vitamins and or supplements as they may interact withyour home medications. What How Much When Instructions Last Dose Unchanged acetaminophen-HYDROcodone (Newtown 325- 5 mg oraltablet) 1 tab(s) by [...] Swelling, pain or redness in one leg [id number] [employer]. [address] [place] [address]. All rights reserved. This information is not intended as a substitute for professional medical care. Always follow yourhealthcare professional's instructions. Additional Information VACCINATE! IT SAVES LIVES! Members of the community who have not yet received the COVID-19 vaccine and would like to receive it can visit one of [facility] vaccine clinics. There are many vaccine clinic locations within the [facility]. For locations and available times, please visit [email or web address] It is important to note that some COVID mobile vaccine clinics are held outdoors and may be canceled in rainy or stormy conditions. To learn more about pediatric vaccinations (ages 5-11), we invite you to visit the [facility] webpage. [email or web address]/[email or web address] [email or web address].htmlTo learn more about the COVID-19 vaccine, we invite you to visit the CDC website for a list of frequently asked questions. https://www.cdc.gov/coronavirus/2019-ncov/vaccines/faq.html [employer] Patient Portal Access Instructions: Stay connected with your healthcare team and access your personal medical information anytime with the [employer] Patient Portal. If you would like a full copy of your medical records please contact the [facility] Medical Records Department Sunday through Sunday between 8a.m. and 4:30p.m. Please follow the directions below to access the portal: 1.Access the email account you provided upon [facility] to the [facility].2.Look for an invitation email from [facility].3.Open the email and access the invitation link: Accept Invitation to [facility]4.Fill in the required bobo to create your account. Sign into [email or web address] with your username and password that you [...] you will allow to register on the [facility] Patient Portal for access to your information. You can also access the [facility] Patient Portal on the [place] kiley. Simply click on Health Records under Front Rowta and then click on the [facility] logo. HOW TO SAFELY DISPOSE OF PRESCRIPTION [...] Call your local pharmacy or go to http://bit.ExactCost/6C3Yl8c to find one close to you.3.Make use of household items: Use cat litter or old coffee grounds to dispose medications if other options arenot available. Mix your drugs with these household products, seal them in an airtight container andthrow it into the garbage. Call [facility]: [phone] to be sure your drugs can be [...] aware that I should contact my doctor. 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/Upholstery Department Supervisor Signature: Date/Time: Relationship to Patient: Witness Name/Signature: Date/Time: [facility] Note* Exam Date Time Procedure Performing Provider Status 11/25/24 12:00 PM XR Chest 1 View JUN ARVIZU DO; [facility] (Verified) [id number] ORIGINAL EXAMINATION: ONE XRAY VIEW OF THE [...] Date: 11/25/2024 12:10:54 PM Ordering Provider: FROYLAN HANSON [facility]01-14[facility] Note* Exam Date Time Procedure Performing Provider Status 11/25/24 11:46 AM EKG [ED AOH] - CV FROYLAN HANSON MD; Auth (Verified) ECG Final Report Sinus rhythm RSR' in V1 or V2, right VCD or RVH Electronic Signature: FROYLAN HANSON MD 11/25/2024 11:59:28 [facility]12-17-2024 NoteHNO ID: [id number] Author: FAUZIA SORENSON PA-C Service: ? Author Type: Physician Acid Washer Operator Type: Progress Notes Filed: 10/28/2024 17:20 Note Text: [facility] EST PATIENT CLINIC NOTE [...] mo. Appt w/ B. VINCENT Sorenson MT, HARRY for new Rx Follow-up VINCENT Leal MT, PA-[facility]12-17-2024 History of Present illness Narrative* Fauzia Sorenson PA-C - 10/28/2024 3:34 PM EST Images from the original note were not included. [facility] EST PATIENT CLINIC NOTE [...] 07/15/2024 Pelvic pain in male 07/15/2024 Schizophrenia ([facility]) Seeing Dr. Vicente Seasonal allergies Tobacco use [...] PFPT > 3 mo. Appt w/ BVINCENT Niño, RYAN, MELAC for new Rx Follow-up VINCENT Leal MT, PALeonidesC documented in this encounterVan Wert County Hospital11-14-2024 History of Present illness Narrative* Karen Augustin PT, DPT - 09/25/2024 11:00 AM EST Program_ID:[id number] Access Code: [email or web address] URL: [email or web address] Date: 09-25-2024 Prepared By: KAREN AUGUSTIN Program [...] Patient Education - cc Pelvic Floor - Lamb Stool Chart - High-Fiber Diet to Support Pelvic Health - cc Pelvic Floor - Fiber * Karen Augustin PT, DPT - 09/25/2024 9:59 AM EST Images from the original note were not included. Episode Visit Count: 1 Therapist That Will Accept/Oversee The Plan Of Care: Karen Naveed PT, DPT, MHS, CIDN Start of Care Date: 09/25/24 Plan of [...] reports firmer stool consistency to combat fecal incontinence.-Lamb 3 4 is the goal Patient reports [...] Planned: 16 Planned Treatment Interventions: Therapeutic exercise (31742), Neuromuscular re- education (58937), Manual therapy (10900), Therapeutic activities (22350), Self- halfway management (15475), Functional training, General Conditioning, Biofeedback Pelvic (24363,84129) PLAN FOR NEXT VISIT: Addressed left lower quadrant, pelvic floor tone and consider internal rectal if pain continues: Down training: Review fiber and Lamb Impact Patient demonstrates good understanding of plan [...] normal; usu 3x/ week Bowel Movement Consistency (Lamb) : 2: Sausage-shaped but lumpy (nutrition: good/ [...] Therapeutic Exercise, Manual TherapyAccess Code: [email or web address] URL: [email or web address] Date: 09/25/2024 Prepared by: KAREN AUGUSTIN Program [...] Patient Education - cc Pelvic Floor - Lamb Stool Chart - High-Fiber Diet to Support Pelvic Health - cc Pelvic Floor - Fiber Evaluation Evaluation Therapeutic Exercise: 1: Refer to [employer] for home exercise given with demo: Due [...] Karen Augustin PT, DPT documented in this encounterVan Wert County Hospital11-14-2024 NoteHNO ID: [id number] Author: KAREN AUGUSTIN PT, DPT Service: ? Author Type: Physical Therapist Type: Progress Notes Filed: 09/25/2024 11:23 Note Text: Episode Visit Count: 1 Therapist That Will Accept/Oversee The Plan Of Care: Karen Augustin PT, DPT, MHS, CIDN Start of Care Date: 09/25/24 Plan of [...] reports firmer stool consistency to combat fecal incontinence.-Lamb 3 4 is the goal Patient reports [...] Planned: 16 Planned Treatment Interventions: Therapeutic exercise (31569), Neuromuscular re-education (41524), Manual therapy (73329), Therapeutic activities (01789), Self-halfway management (22871), Functional training, General Conditioning, Biofeedback Pelvic (56392,89143) PLAN FOR NEXT VISIT: Addressed left lower quadrant, pelvic floor tone and consider internal rectal if pain continues: Down training: Review fiber and Lamb Impact Patient demonstrates good understanding of plan [...] indicates half of resp (more content not included)...[facility]10-17-2024 History of Present illness Narrative* Rob Grider RT(R) - 08/28/2024 5:20 PM EDT Radiology [...] PATIENT PRESENTS WITH AN IMPLANTABLE OR ATTACHED PUMP INSTALLER: No RADIOLOGY DEPARTMENT: General X-ray: Exam(s) Completed: Chest X-Ray PERIPHERAL IV DATA: Not applicable SIGNED BY: RT Jaida(Norman) August 28, 2024 5:14 PM documented in this encounterVan Wert County Hospital10-17-2024 NoteHNO ID: [id number] Author: ROB GRIDER RT(R) Service: ? Author Type: Door Repairer Bus Type: Progress Notes Filed: 08/28/2024 17:21 Note [...] PATIENT PRESENTS WITH AN IMPLANTABLE OR ATTACHED PUMP INSTALLER: No RADIOLOGY DEPARTMENT: General X-ray: Exam(s) Completed: Chest X-Ray PERIPHERAL IV DATA: Not applicable SIGNED BY: Rob Grider, RT(R) August 28, 2024 5:14 [facility]10-17-2024 NoteHNO ID: [id number] Author: COMFORT RINCON APRN.TOW TRUCK DISPATCHER Service: ? Author Type: Nurse Practitioner Type: [...] history is provided by the patient. No experimental mechanic outboard motors was used. Cough This is a new [...] 07/15/2024 Pelvic pain in male 07/15/2024 Schizophrenia ([facility]) Seeing Dr. Vicente Seasonal allergies Tobacco use disorder PAST SURGICAL HISTORY Procedure Laterality Date CIRCUMCISION 08/27/2009 EGD 08/17/14 meat removed from stricture EGD 08/12/2019 foreign body removal EGD FLEXIBLE FOREIGN BODY REMOVAL 04/09/07 [facility] ER, no dilatation ESOPHAGOGASTRODUODENOSCOPY TRANSORAL DIAGNOSTIC 05/13/14 eosinophilic esophagitis,relative stricture ESOPHAGOGASTRODUODENOSCOPY TRANSORAL DIAGNOSTIC 09/30/2014 EGD ESOPHAGOGASTRODUODENOSCOPY TRANSORAL DIAGNOSTIC 06/14/2017 [facility] ER with foreign body removed from esophagus ESOPHAGOGASTRODUODENOSCOPY TRANSORAL DIAGNOSTIC 08/13/2017 [facility] ER with foreign body removal from esophagus [...] Respiratory: Positive for c (more content not included)...[facility]10-17-2024 History of Present illness Narrative* Comfort Rincon APRN.TOW TRUCK DISPATCHER - 08/28/2024 5:04 PM EDT This note was created using mySupermarketriter. Subjective Josafat Alvarenga is a 39 year old male. 39 year old male with PMH asthma presents for illness. Acute onset 24 hours +cough +productive +runny nose +itchy eyes +sore throat +nausea Denies ears Denies fever or chills Denies CP Denies dyspnea Denies emesis Denies diarrhea The history is provided by the patient. No experimental mechanic outboard motors was used. Cough This is a new [...] removal EGD FLEXIBLE FOREIGN BODY REMOVAL 04/09/07 [facility] ER, no dilatation ESOPHAGOGASTRODUODENOSCOPY TRANSORAL DIAGNOSTIC 05/13/14 eosinophilic esophagitis,relative stricture ESOPHAGOGASTRODUODENOSCOPY TRANSORAL DIAGNOSTIC 09/30/2014 EGD ESOPHAGOGASTRODUODENOSCOPY TRANSORAL DIAGNOSTIC 06/14/2017 [facility] ER with foreign body removed from esophagus ESOPHAGOGASTRODUODENOSCOPY TRANSORAL DIAGNOSTIC 08/13/2017 [facility] ER with foreign body removal from esophagus [...] Siddharth Cervantes Discussed red flags Comfort Rincon APRN.TOW TRUCK DISPATCHER documented in this encounterVan Wert County Hospital09-17-2024 NoteHNO ID: [id number] Author: FAUZIA SORENSON PA-C Service: ? Author Type: Physician Acid Washer Operator Type: Progress Notes Filed: 07/29/2024 18:12 Note Text: Rescheduled patient since he has not had his PFPT consult, we will discuss his LUTS and ED furhter once started PFPT. VINCENT Leal MT, PA-CClCoshocton [facility]09-17-2024 History of Present illness Narrative* Fauzia Sorenson PA-C - 07/29/2024 6:10 PM EDT Rescheduled patient since he has not had his PFPT consult, we will discuss his LUTS and ED furhter once started PFPT. VINCENT Leal MT, PA-C documented in this encounterVan Wert County Hospital09-03-2024 Instructions* Patient Instructions* Fauzia Sorenson PA-C - 07/15/2024 2:30 PM EDT > Consult Pelvic Floor Dysfunction Follow up 3 month with VINCENT Malhotra MT, PA-C for PFPT Consult documented in this encounterVan Wert County Hospital09-03-2024 NoteHNO ID: [id number] Author: FAUZIA SORENSON PA-C Service: ? Author Type: Physician Acid Washer Operator Type: Progress Notes Filed: 07/15/2024 17:42 Note Text: [facility] EST PATIENT CLINIC NOTE SERVICE [...] History of marijuana use No date: Schizophrenia ([facility]) Comment: Seeing Dr. Vicente No date: Seasonal [...] UA (POCT) Negative Negative (more content not included)...[facility]09-03-[facility] History of Present illness Narrative* Fauzia Sorenson PA-C - 07/15/2024 2:17 PM EDT Images from the original note were not included. [facility] EST PATIENT CLINIC NOTE [...] History of marijuana use No date: Schizophrenia ([facility]) Comment: Seeing Dr. Vicente No date: Seasonal [...] PA-C after PFPT VINCENT Leal MT, PA-C documented in this encounterVan Wert County Hospital06-19-2024 Telephone encounter Note * Telephone Encounter - Adelaide Solano RN - 04/30/2024 11:44 AM EDT Patient notified of results and provider's instructions. Patient verbalizes understanding. Adelaide Solano RN [facility]06-19-2024 Miscellaneous Notes* Telephone Encounter - Adelaide [...] 9:29 AM EDT m documented in this encounterVan Wert County Hospital06-19-2024 Telephone encounter Note * Telephone Encounter - Merissa Ray LPN - 04/30/2024 9:30 AM EDT Attempted to reach pt by phone without success. Pt does not have voicemail set up. Try later. Merissa Ray LPN [facility]06-19-2024 Telephone encounter Note* Telephone Encounter - Merissa Ray LPN - 04/30/2024 9:29 AM EDT ----- Message from Camilo Goldberg MD sent at 04/30/2024 7:07 AM EDT ----- Urine test was negative for gonorrhea and chlamydia. Finish doxycycline course due to exposure. [facility]06-19-2024 Telephone encounter Note* Telephone Encounter - Merissa Ray LPN - 04/30/2024 9:29 AM EDT m [facility]2024 NoteHNO ID: [id number] Author: JONO CHAVEZ APRN.TOW TRUCK DISPATCHER Service: ? Author Type: Nurse Practitioner Type: [...] removal EGD FLEXIBLE FOREIGN BODY REMOVAL 04/09/07 [facility] ER, no dilatation ESOPHAGOGASTRODUODENOSCOPY TRANSORAL DIAGNOSTIC 05/13/14 eosinophilic esophagitis,relative stricture ESOPHAGOGASTRODUODENOSCOPY TRANSORAL DIAGNOSTIC 09/30/2014 EGD ESOPHAGOGASTRODUODENOSCOPY TRANSORAL DIAGNOSTIC 06/14/2017 [facility] ER with foreign body removed from esophagus ESOPHAGOGASTRODUODENOSCOPY TRANSORAL DIAGNOSTIC 08/13/2017 [facility] ER with foreign body removal from esophagus [...] and rash. Neurological: Nega (more content not included)...[facility] 04-29-2024 History of Present illness Narrative* Jono Chavez, FOREIGN.[facility] - 04/29/2024 1:17 PM EDT Subjective HPI [...] removal EGD FLEXIBLE FOREIGN BODY REMOVAL 04/09/07 [facility] ER, no dilatation ESOPHAGOGASTRODUODENOSCOPY TRANSORAL DIAGNOSTIC 05/13/14 eosinophilic esophagitis,relative stricture ESOPHAGOGASTRODUODENOSCOPY TRANSORAL DIAGNOSTIC 09/30/2014 EGD ESOPHAGOGASTRODUODENOSCOPY TRANSORAL DIAGNOSTIC 06/14/2017 [facility] ER with foreign body removed from esophagus ESOPHAGOGASTRODUODENOSCOPY TRANSORAL DIAGNOSTIC 08/13/2017 [facility] ER with foreign body removal from esophagus [...] of care. This note was generated using Clikthrough software. It may contain errors in wording, punctuation, or spelling. Jono Chavez APRN.TOW TRUCK DISPATCHER documented in this encounterVan Wert County Hospital05-24-2024 NoteHNO ID: [id number] Author: BENEDICT BERG APRN.MARCELLA Service: ? Author Type: Nurse Practitioner [...] removal EGD FLEXIBLE FOREIGN BODY REMOVAL 04/09/07 [facility] ER, no dilatation ESOPHAGOGASTRODUODENOSCOPY TRANSORAL DIAGNOSTIC 05/13/14 eosinophilic esophagitis,relative stricture ESOPHAGOGASTRODUODENOSCOPY TRANSORAL DIAGNOSTIC 09/30/2014 EGD ESOPHAGOGASTRODUODENOSCOPY TRANSORAL DIAGNOSTIC 06/14/2017 [facility] ER with foreign body removed from esophagus ESOPHAGOGASTRODUODENOSCOPY TRANSORAL DIAGNOSTIC 08/13/2017 [facility] ER with foreign body removal from esophagus [...] DOXYCYCLINE MONOHYDRATE 100 MG CAPSULE Benedict Berg APRN.[facility]05-24-2024 History of Present illness Narrative* Benedict Berg APRN.TOW TRUCK DISPATCHER - 04/04/2024 4:09 PM EDT Subjective HPI [...] removal EGD FLEXIBLE FOREIGN BODY REMOVAL 04/09/07 [facility] ER, no dilatation ESOPHAGOGASTRODUODENOSCOPY TRANSORAL DIAGNOSTIC 05/13/14 eosinophilic esophagitis,relative stricture ESOPHAGOGASTRODUODENOSCOPY TRANSORAL DIAGNOSTIC 09/30/2014 EGD ESOPHAGOGASTRODUODENOSCOPY TRANSORAL DIAGNOSTIC 06/14/2017 [facility] ER with foreign body removed from esophagus ESOPHAGOGASTRODUODENOSCOPY TRANSORAL DIAGNOSTIC 08/13/2017 [facility] ER with foreign body removal from esophagus [...] DOXYCYCLINE MONOHYDRATE 100 MG CAPSULE Benedict Berg APRN.MARCELLA documented in this encounterVan Wert County Hospital05-14-2024 NoteHNO ID: [id number] Author: WINNIE KIDD PA Service: ? Author Type: Physician Acid Washer Operator Type: Progress Notes Filed: 03/25/2024 13:02 Note Text: This note was created using NoteWriter. Subjective Josafat Alvarenga is a 38 year [...] Anxiety Asthma Attention deficit disorder Bipolar disorder ([facility]) Chronic lower back pain DDD (degenerative disc disease), lumbar with slipped discs Genital herpes Hepatitis C 08/2013 type 2b History of drug use disorder IV heroin and cocaine. Last use 2013 History of marijuana use Schizophrenia ([facility]) Seeing Dr. Vicente Seasonal allergies Tobacco use disorder PAST SURGICAL HISTORY Procedure Laterality Date CIRCUMCISION 08/27/2009 EGD 08/17/14 meat removed from stricture EGD 08/12/2019 foreign body removal EGD FLEXIBLE FOREIGN BODY REMOVAL 04/09/07 [facility] ER, no dilatation ESOPHAGOGASTRODUODENOSCOPY TRANSORAL DIAGNOSTIC 05/13/14 eosinophilic esophagitis,relative stricture ESOPHAGOGASTRODUODENOSCOPY TRANSORAL DIAGNOSTIC 09/30/2014 EGD ESOPHAGOGASTRODUODENOSCOPY TRANSORAL DIAGNOSTIC 06/14/2017 [facility] ER with foreign body removed from esophagus ESOPHAGOGASTRODUODENOSCOPY TRANSORAL DIAGNOSTIC 08/13/2017 [facility] ER with foreign body removal from esophagus [...] Conjunctiva/sclera: Conjunctivae normal. Ca (more content not included)...[facility]05-14-20[facility] History of Present illness Narrative* Winnie Kidd, GLORIA - 03/25/2024 12:53 PM EDT This note was created using Judobaby. Subjective Josafat Alvarenga is a 38 year [...] removal EGD FLEXIBLE FOREIGN BODY REMOVAL 04/09/07 [facility] ER, no dilatation ESOPHAGOGASTRODUODENOSCOPY TRANSORAL DIAGNOSTIC 05/13/14 eosinophilic esophagitis,relative stricture ESOPHAGOGASTRODUODENOSCOPY TRANSORAL DIAGNOSTIC 09/30/2014 EGD ESOPHAGOGASTRODUODENOSCOPY TRANSORAL DIAGNOSTIC 06/14/2017 [facility] ER with foreign body removed from esophagus ESOPHAGOGASTRODUODENOSCOPY TRANSORAL DIAGNOSTIC 08/13/2017 [facility] ER with foreign body removal from esophagus [...] ER evaluation. GLORIA Cohn documented in this encounterVan Wert County Hospital05-03-2024 History of Present illness Narrative* Barb [...] PATIENT PRESENTS WITH AN IMPLANTABLE OR ATTACHED PUMP INSTALLER: No RADIOLOGY DEPARTMENT: Ultrasound PERIPHERAL IV DATA: Not applicable SIGNED BY: Barb Ross RDMS March 14, 2024 10:58 AM documented in this encounterVan Wert County Hospital05-03-2024 NoteHNO ID: [id number] Author: BARB ROSS RDMS Service: ? Author Type: Door Repairer Bus Type: Progress Notes Filed: 03/14/2024 10:59 Note [...] PATIENT PRESENTS WITH AN IMPLANTABLE OR ATTACHED PUMP INSTALLER: No RADIOLOGY DEPARTMENT: Ultrasound PERIPHERAL IV DATA: Not applicable SIGNED BY: Barb Ross RDMS March 14, 2024 10:58 [facility]05-01-2024 Telephone encounter Note* Telephone Encounter - Hong Marsha - 03/12/2024 12:31 PM EDT Advised pt and rescheduled Marsha Hong [facility]05-01-2024 Miscellaneous Notes* Telephone Encounter - Marsha Pitts - 03/12/2024 12:31 PM EDT Advised pt and rescheduled Marsha Hong documented in this encounterVan Wert County Hospital05-01-2024 Telephone encounter Note * Telephone Encounter - Elsie Hare - 03/12/2024 8:50 AM EDT Tried calling pt, voicemail full. Sent mychart message to let him know about needing US first and then appt. Asked him to call me back. Elsie QURESHI [facility]05-01-2024 Miscellaneous Notes* Telephone Encounter - Elsie [...] us. Sonia Kramer PA-C documented in this encounterVan Wert County Hospital05-01-2024 Telephone encounter Note * Telephone Encounter - Sonia Kramer PA-C - 03/12/2024 7:28 AM EDT Please call pt, scheduled with me today, needs to have scrotal us, order in epic, ok to hold on appt until we get scrotal us. Sonia Kramer PA-C [facility]04-18-2024 NoteHNO ID: [id number] Author: SONIA KRAMER PA-C Service: ? Author Type: Physician Acid Washer Operator Type: Progress Notes Filed: 02/28/2024 10:35 Note [...] which included preparing to see the patient, [id number] patient care, completing clinical documentation, obtaining and/or reviewing separately obtained history, performing a medically appropriate examination, and ordering medications, tests, or procedures.[facility]04-18-2024 History of Present illness Narrative* Sonia [...] which included preparing to see the patient, [id number] patient care, completing clinical documentation, obtaining and/or reviewing separately obtained history, performing a medically appropriate examination, and ordering medications, tests, or procedures. documented in this encounterVan [facility]03-[facility] History of Present illness Narrative* Des Coffman APRN.TOW TRUCK DISPATCHER - 02/01/2024 1:51 PM EDT This note was created using mySupermarketriter. Subjective Josafat Alvarenga is a 38 year [...] testicular torsion,pt referred to ER Des Coffman APRN.TOW TRUCK DISPATCHER documented in this encounterVan [facility]ert [facility] Hospital10-24-2023 History of Present illness Narrative* Justus [...] Justus Bean Jr, MD documented in this encounterVan [facility]ert [facility] Hospital09-29-2023 History of Present illness Narrative* Theresa Terry MD - 08/10/2023 8:56 AM EDT Error documented in this encounterVan Wert County Hospital09-12-2023 Miscellaneous Notes* Telephone Encounter - Theresa Terry MD - 07/24/2023 8:30 AM EDT Patient cancelled surgery AM of surgery documented in this encounterVan Wert [facility] Hospital06-21-2023 Miscellaneous Notes* Telephone Encounter - Roro Mendoza LPN - 05/02/2023 12:05 PM EDT Called [...] 6 months, new US order in VINCENT Leal MT, PA-C documented in this encounterVan Wert [facility] Hospital06-19-2023 History of Present illness Narrative* Barb [...] 30, 2023 4:26 PM documented in this encounterVan Wert County Hospital06-16-2023 Miscellaneous Notes* Telephone Encounter - Maria De Jesus Rodas - 04/27/2023 3:08 PM EDT Pt confirmed his appt with Dr. Terry in [place] of[place] 06/01/23 @ 2:30. Cintia documented in this encounterVan Wert County Hospital06-16-2023 History of Present illness Narrative* Fauzia Sorenson PA-C - 04/27/2023 1:52 PM EDT Images from the original note were not included. [facility] NEW CONSULT PATIENT CLINIC [...] History of marijuana use Quit 10/2016 Schizophrenia ([facility]) Seeing Dr. Vicente Seasonal allergies Tobacco use disorder Unspecified asthma, with status asthmaticus hospitalized once PAST SURGICAL HISTORY: PAST SURGICAL HISTORY Procedure Laterality Date CIRCUMCISION 08/27/2009 EGD 08/17/14 meat removed from stricture EGD 08/12/2019 foreign body removal EGD W/O OR W/BRUSH/WASH 05/13/14 eosinophilic esophagitis,relative stricture EGD W/O OR W/BRUSH/WASH 09/30/2014 EGD EGD W/O OR W/BRUSH/WASH 06/14/2017 [facility] ER with foreign body removed from esophagus EGD W/O OR W/BRUSH/WASH 08/13/2017 [facility] ER with foreign body removal from esophagus EGD W/REM FB STOMACH/DUOD 04/09/07 [facility] ER, no dilatation EXCISE VARICOCELE 2009 REMOVE [...] 456.4, ICD10: I86.1 > Referred to Dr Terry I spent a total of 40 minutes on the date of the service which included preparing to see the patient, face to face patient care, completing clinical documentation, obtaining and/or reviewing separately obtained history, performing a medically appropriate examination, counseling and educating the pat ient/family/caregiver, ordering medications, tests, or procedures, and care coordination. VINCENT Leal, HARRY DAVIS documented in this encounterVan Wert County Hospital05-30-2023 Physician Emergency department Note* Justus Muñoz CNP - 04/10/2023 9:15 PM EDT Emergency Department Report [facility] Service Date:.04/10/23 PCP: Shyam Harrison [...] Temp Temp src Pulse Resp SpO2 Height 04/10/232032 137/88 -- -- 79 20 99 % [...] YELLOW YELLOW APPEARANCE, URINE CLEAR CLEAR Specific [place], Urine 1.010 1.010 - 1.025 PH URINE [...] with above information. Justus Muñoz CNP 04/10/232120 [facility] Work Phone: 1(657) 772-911505-30-2023 Emergency department Note* Justus Muñoz CNP - 04/10/2023 9:15 PM EDT Emergency Department Report [facility] Service Date:.04/10/23 PCP: Shyam Harrison [...] Temp Temp src Pulse Resp SpO2 Height 04/10/232032 137/88 -- -- 79 20 99 % [...] YELLOW YELLOW APPEARANCE, URINE CLEAR CLEAR Specific [place], Urine 1.010 1.010 - 1.025 PH URINE [...] to the patient with above information. Justus Muñoz, TOW TRUCK DISPATCHER 05/2120 * Johanna Petersen RN - 04/10/2023 8:35 PM EDT Is aware of ordered urine, denies needs to urinate, is aware of ordered specimen documented in this encounterMorrow County Hospital05-30-2023 Emergency department Note* Johanna Petersen RN - 04/10/2023 8:35 PM EDT Is aware of ordered urine, denies needs to urinate, is aware of ordered specimen [facility]05-03-2023 History of Present illness Narrative* Shyam Harrison APRN-TOW TRUCK DISPATCHER - 03/14/2023 9:40 AM EDT Established Patient New Problem Josafat Alvarenga [id number] 1985 03/14/2023 Chief Complaint Patient presents with Schedule Test/Referral Pt requesting referral to Urology, Pt was dc from [facility] Urology d/t multipple No Shows. Pt requestinghis [facility]rologist [facility], tamica jenkins Pt reports a lot of pain this morning, states he was having intercourse this morning and experienced a stabbing pain when he did not ejaculate. Pain level this morning7/10. History of Present Illness: Josafat Alvarenga is a 37 y.o. male is an established pt to the [facility] for new complaint asking for urology referral. [...] Use Authorization (EUA) for the qualitative detection [id number] nucleic acid. INFLUENZA A AND B, PCR [...] TO UROLOGY RAVEN Pettit documented in this encounterMorrow County Hospital12-01-2022 Emergency department Note* Adelaide Cherry LPN [...] back later and hungup on this nurse. [facility]12-01-20[facility] Emergency department Note* Adelaide Cherry LPN [...] 2 weeks after coughing documented in this encounterMorrow County Hospital12-01-2022 Emergency department Note* Ree Crowder RN - 10/12/2022 5:03 PM EST Pt c/o R rib pain for 2 weeks after coughing [facility]08-12-20[facility] Emergency department Note* Anand Ball RN - 06/23/2022 4:21 PM EDT This nurse in room to discharge pt, pt no longer in room. Pt left without receiving medication or discharge instructions [facility]08-12-20[facility] Emergency department Note* Anand Ball RN - 06/23/2022 4:21 PM EDT This nurse in room to discharge pt, pt no longer in room. Pt left without receiving medication or discharge instructions documented in this encounterMorrow County Hospital05-18-2022 History of Present illness Narrative* Hortencia Robi Lira, MARCELLA - 03/29/2022 10:30 AM EDT Chief Complaint [...] to the ED. He was unable to vegetable picker the medication due to cost. He [...] evening at 6 PM. 1 Each 6 Mineral-3 Fatty Acids (Fish Oil) 1000 MG capsule [...] erectile dysfunction type GoodRx coupon provided for Queta. He will follow up in 4 weeks [...] 03/29/2022 LEUKOCESTUR NEGATIVE 07/16/2019 documented in this encounterMorrow [facility] Hospital04-26-2022 History of Present illness Narrative* Hortencia Lira, TOW TRUCK DISPATCHER - 03/07/2022 1:30 PM EDT Chief Complaint Patient presents with Follow-up Erectile Dysfunction Kidney Stone HPI: 36 y.o. male recently seen as a new patient for evaluation of erectile dysfunction. Patient reportsdifficulty attaining and maintaining erections. This started approximately a year ago. 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 The patient reports an inability to obtain an erection with mast urbation. Relationship with partner is good. Risk factors for ED include chronic opioid use and Smoking; reports 10 year pack history. He has tried sildenafil without improvement. Denies history of TX/CVA. He is not diabetic. He reports weak [...] evening at 6 PM. 1 Each 6 Mineral-3 Fatty Acids (Fish Oil) 1000 MG capsule [...] 03/07/2022 LEUKOCESTUR NEGATIVE 07/16/2019 documented in this [facility]04-26-2022 Miscellaneous Notes* Addendum Note - Marce Gonsalves [...] PM Modules accepted: Orders documented in this [facility]04-26-2022 Note* Addendum Note - Marce Gonsalves - 03/07/2022 1:30 PM EDTAddended by: MARCE GONSALVES on: 03/07/2022 02:21 PM Modules accepted: Orders [facility]04-26-2022 Note* Addendum Note - Marce Gonsalves - 03/07/2022 1:30 PM EDTAddended by: MARCE GONSALVES on: 03/07/2022 02:25 PM Modules accepted: Orders [facility]04-26-2022 Note* Addendum Note - Marce Gonsalves - 03/07/2022 1:30 PM EDTAddended by: MARCE GONSALVES on: 03/07/2022 02:26 PM Modules accepted: Orders [facility]04-26-2022 Note* Addendum Note - Marce Gonsalves - 03/07/2022 1:30 PM EDTAddended by: MARCE GONSALVES on: 03/07/2022 02:28 PM Modules accepted: Orders [facility]04-12-20[facility] History of Present illness Narrative* Marce [...] 02/21/2022 LEUKOCESTUR NEGATIVE 07/16/2019 * Hortencia Lira, TOW TRUCK DISPATCHER - 02/21/2022 1:45 PM EDT Chief Complaint Patient presents with New Patient ED HPI: 36 y.o. male presenting as a new patient for evaluation of erectile dysfunction. Patient reports difficulty attaining and maintaining erections. This started approximately a year ago. 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 The patient reports an inability to obtain an erection with masturbation. Relationship with partner is good. Risk factors for ED include chronic opioid use and Smoking; reports 10 year pack history. He has tried sildenafil without improvement. Denies history of TX/CVA. He is not diabetic. He reports weak [...] evening at 6 PM. 1 Each 6 Mineral-3 Fatty Acids (Fish Oil) 1000 MG capsule [...] POCT URINALYSIS DIPSTICK AUTOMATED W/O SCOP - CA RODDY,POST-VOID RES,US,NON-IMAGING Patient was advised to call with any questions or concerns. If symptoms worsen patient was advised to follow up in our office or the Emergency Dept. Benefits, Risks, Contraindications, and Complications of recommended treatments were explained the patient understands and agrees to proceed with plan. documented in this encounterMorrow [facility] Hospital04-01-2022 History of Present illness Narrative* RAVEN Pettit - 02/10/2022 10:10 AM EDT This is [...] urology. RAVEN Pettit 02/10/2022 documented in this [facility]03-01-2022 History of Present illness Narrative* RAVEN Pettit [...] needed. RAVEN Pettit 01/10/2022 documented in this [facility]11-12-2021 History of Present illness Narrative* Lilliana Cagle - 09/23/2021 8:20 AM EST Tubes: 1 Gold; 1 Purple Attempts: 1 Location: Left AC Position: Sitting Patient tolerated well. MLee * RAVEN Pettit - 09/23/2021 8:20 AM EST Follow Up Visit Josafat Alvarenga [id number] 1985 09/23/2021 Chief Complaint Patient presents with [...] abuse disorder RAVEN Pettit documented in this encounterM[facility] Hospital10-20-2014 History of Past illness Narrative* Problem Noted Date Resolved Date NO SHOW 08/31/2014 07/12/2017 Balanitis 08/09/2009 02/23/2014 Redundant prepuce and phimosis 08/09/2009 0 02/23/2014 documented as of this encounter (statuses as of 04/27/2023) [facility] of Past illness Narrative* Problem Noted Date Resolved Date NO SHOW 08/31/2014 07/12/2017 Balanitis 08/09/2009 02/23/2014 Redundant prepuce and phimosis 08/09/2009 0 02/23/2014 documented as of this encounter (statuses as of 04/27/2023) [facility] of Past illness Narrative* Problem Noted Date Resolved Date NO SHOW 08/31/2014 07/12/2017 Balanitis 08/09/2009 02/23/2014 Redundant prepuce and phimosis 08/09/2009 0 02/23/2014 documented as of this encounter (statuses as of 05/02/2023) [facility] of [facility] illness Narrative* Problem Noted Date Diagnosed Date Resolved Date NO SHOW 08/31/2014 07/12/2017 Balanitis 08/09/2009 02/23/2014 Redundant prepuce and phimosis 08/09/2009 02/23/2014 documented as of this encounter (statuses as of 07/24/2023) [facility] of [facility] illness Narrative* Problem Noted Date Diagnosed Date Resolved Date NO SHOW 08/31/2014 07/12/2017 Balanitis 08/09/2009 02/23/2014 Redundant prepuce and phimosis 08/09/2009 02/23/2014 documented as of this encounter (statuses as of 08/13/2023) [facility] of [facility] illness Narrative* Problem Noted Date Diagnosed Date Resolved Date NO SHOW 08/31/2014 07/12/2017 Balanitis 08/09/2009 02/23/2014 Redundant prepuce and phimosis 08/09/2009 02/23/2014 documented as of this encounter (statuses as of 09/04/2023) [facility] Narrative* Problem Noted Date Diagnosed Date Resolved Date NO SHOW 08/31/2014 07/12/2017 Balanitis 08/09/2009 02/23/2014 Redundant prepuce and phimosis 08/09/2009 02/23/2014 documented as of this encounter (statuses as of 09/16/2023) [facility] of [facility] Narrative* Problem Noted Date Diagnosed Date Resolved Date NO SHOW 08/31/2014 07/12/2017 Balanitis 08/09/2009 02/23/2014 Redundant prepuce and phimosis 08/09/2009 02/23/2014 documented as of this encounter (statuses as of 02/01/2024) [facility] of [facility] illness Narrative* Problem Noted Date Diagnosed Date Resolved Date NO SHOW 08/31/2014 07/12/2017 Balanitis 08/09/2009 02/23/2014 Redundant prepuce and phimosis 08/09/2009 02/23/2014 documented as of this encounter (statuses as of 02/28/2024) [facility]Cons[facility] note Author Justus Mac [facility] Note Date/Time July 23, 2025 1:08pm [facility] Medical Records Department [address] [place] [address] Anesthesia Postop Eval I 07/23/25 1308 MR#: [id number] Acct: [id number] Name: JOSAFAT ALVARENGA Rep #:[id number] : 1985 40 From: Justus Mac CRNA PCP: Care Physician,No Primary Status :REG SDC Y Race: C Location: [place] [address] Anesthesia: Postop Eval I Current Vital Signs Temperature: 97.4 F Pulse Rate: 66 Blood Pressure: 118/78 Respiratory Rate: 16 Pulse Ox: 97 Oxygen Delivery Method: Room Air Assessment Airway patent: Yes Spontaneous unlabored respirations: Yes Mental status: Calm and Asleep nausea: No Vomiting: No Anesthesia Complication: No Fluid Hydration Crystalloid volume administer (ml): 500 Total IV fluid infused: 500 Progress Note Anesthesia document: Postop Eval 1 completed: Yes 07/23/25 1308 <Electronically signed by Justus martell CRNA> Date _ Justus Mac CRNA Cosigner Signature: Date CC: ~ Signed [facility] Work Phone: Evaluation + Plan note No data available for this section [facility] Evaluation note* Diagnosis Mild persistent asthma without complication- Primary Unspecified asthma Erectile dysfunction, unspecified erectile dysfunction type Encounter for preventative adult health care examination Tobacco abuse disorder Tobacco use disorder [facility] Diagnosis Erectile dysfunction, unspecified erectile dysfunction type- Primary Mild persistent asthma without complication Unspecified asthma Diarrhea, unspecified type Tobacco abuse disorder Tobacco use disorder documented [facility]* Diagnosis Erectile dysfunction, unspecified erectile dysfunction type- Primary Schizoaffective disorder, unspecified type Hx of opioid abuse Opioid abuse, in remission documented in this encounter [facility]* Diagnosis Vasculogenic erectile dysfunction, unspecified vasculogenic erectile dysfunction type- Primary Urinary frequency Microscopic hematuria documented [facility]* Diagnosis Vasculogenic erectile dysfunction, unspecified vasculogenic erectile dysfunction type Urinary frequency Microscopic hematuria [facility]* Diagnosis Vasculogenic erectile dysfunction, unspecified vasculogenic erectile dysfunction type- Primary Microscopic hematuria Kidney stone Calculus of kidney documented [facility]* Diagnosis Kidney stone Calculus of kidney Vasculogenic erectile dysfunction, unspecified vasculogenic erectile dysfunction type- Primary Elevated prolactin level Other and unspecified anterior pituitary hyperfunction Kidney stone Calculus of kidney Microscopic hematuria documented [facility]* Diagnosis Elevated prolactin level- Primary Other and unspecified anterior pituitary hyperfunction Vasculogenic erectile dysfunction, unspecified vasculogenic erectile dysfunction type Kidney stone Calculus of kidney Microscopic hematuria documented [facility]* Diagnosis Elevated prolactin level Other and unspecified anterior pituitary hyperfunction documented [facility]* Diagnosis Anxiety and depression- Primary Dysthymic disorder [facility]* Diagnosis Erectile dysfunction, unspecified erectile dysfunction type- Primary Disorder of ejaculation Other specified disorder of male genital organs documented in this encounter [facility]* Diagnosis Right flank pain- Primary Abdominal pain, unspecified site documented in this encounter [facility]* Diagnosis Blood in semen- Primary Hematospermia Pain in both testicles Scrotal varices documented in this encounter [facility] note* Diagnosis Encounter for sterilization- Primary Sterilization [facility]* Diagnosis Encounter for sterilization- Primary Sterilization [facility]* Diagnosis Blood in semen Hematospermia Scrotal varices Pain in both testicles Encounter for sterilization Sterilization documented in this encounter [facility]* Diagnosis Testicular pain, right- Primary Unspecified disorder of male genital organs documented in this encounter [facility] note* Diagnosis Pain in testicle, unspecified laterality [N50.819]- Primary documented in this encounter [facility] note* Diagnosis Pain in testicle, unspecified laterality- Primary documented in this encounter [facility] note* Diagnosis Pain in testicle, unspecified laterality documented in this encounter [facility] note* Diagnosis Sore throat- Primary Acute pharyngitis Mild persistent asthma without complication Unspecified asthma documented in this encounter [facility] note* Diagnosis Exposure to chlamydia- Primary Contact with or exposure to venereal diseases Dysuria documented in this encounter [facility] note* Diagnosis Screening for STD (sexually transmitted disease)- Primary Screening examination for venereal disease STD exposure documented in this encounter [facility] note* Diagnosis Pelvic pain in male- Primary Abdominal pain, other specified site Pain in testicle, unspecified laterality Pelvic floor dysfunction Pelvic muscle wasting [facility]* Diagnosis Pelvic floor dysfunction- Primary Pelvic muscle wasting Impotence of organic origin documented in this encounter [facility] note* Diagnosis URI, acute- Primary Acute upper respiratory infections of unspecified site Acute cough URI, acute Acute upper respiratory infections of unspecified site Acute cough [facility] this [facility]* Diagnosis URI, acute Acute upper respiratory infections of unspecified site Acute cough documented in this encounter [facility] note* Diagnosis Pelvic pain in male- Primary Abdominal pain, other specified site Pain in testicle, unspecified laterality Chronic constipation Unspecified constipation Bladder neck obstruction Retention of urine, unspecified Detrusor sphincter dyssynergia documented in this encounter [facility] note* Diagnosis Premature ejaculation- Primary Impotence of organic origin Pelvic floor dysfunction Pelvic muscle wasting Pain in testicle, unspecified laterality documented in this encounter [facility] note* Diagnosis Pelvic floor dysfunction- Primary Pelvic muscle wasting Impotence of organic origin documented in this encounter [facility] note* Diagnosis NO SHOW- Primary documented in this encounter [facility] noteNo assessment information availableWTrinity [facility] Work Phone: Evaluation note* Diagnosis Onset Date Resolution Status Admit Date Dysphagia noneactive July 20, 2025 2:17pm [facility] Work Phone: Hospital Discharge instructions* Attachments The following attachments cannot be sent through Care Everywhere. * Anxiety Disorders: General Info (Gibraltarian) documented in this encounterM[facility] HospitalH[facility] Dis[facility] instructions* Attachments The following attachments cannot be sent through Care Everywhere. * Relaxation Exercises (The Carmen) (Gibraltarian) [facility] Dis[facility] instructions No data available for this section [facility] Hospital Discharge instructionsAdditional Instructions Thank you for trusting us with your care today! The x-ray of your wrist did not show signs of a bony injury. You likely suffered a wrist sprain. This is treated with immobilization rest and time. Please take Tylenol (2 pills, 650 mg), ibuprofen (2 pills, 400 mg) every 6 hours as needed for pain and fever control. Please return to the emergency department if your symptoms change or worsen. Please follow with your primary care physician for further outpatient evaluation and management.[facility] Work Phone: Hospital Discharge instructionsAdditional Instructions No testicular torsion. No infection. On the ultrasound you do have hydroceles on both sides. That may or may not be the cause of your pain. Motrin and Tylenol for pain. Follow-up with the urologist if you want further evaluation for the hydroceles.[facility] Work Phone: Progress note No data available for this section [facility] Reason for referral (narrative)* Consultation (Routine) - New Request Specialty Diagnoses / Procedures Referred By Satnam lott Referred To Contact Urology Diagnoses Erectile dysfunction, unspecified erectile dysfunction type Shyam Harrison, INCINERATOR PLANT LABORER-TOW TRUCK DISPATCHER [address] [place] [address] Referral ID Status Reason Start Date Expiration Date V isits Requested Visits Authorized [id number] New Request 01/10/2022 02/04/2023 1 1 [facility] for referral (narrative)* Consultation (Routine) - New Request Specialty Diagnoses / Procedures Referred By Contac t Referred To Contact Urology Diagnoses Erectile dysfunction, unspecified erectile dysfunction type Shyam Harrison, FOREIGN-TOW TRUCK DISPATCHER [address] [place] [address] Referral ID Status Reason Start Date Expiration Date V isits Requested Visits Authorized [id number] New Request 02/10/2022 03/07/[address] [facility] for referral (narrative)* Consultation (Routine) - Open Specialty Diagnoses / Procedures Referred By Contac t Referred To Contact Diagnoses Erectile dysfunction, unspecified erectile dysfunction type Disorder of ejaculation Shyam Harrison, INCINERATOR PLANT LABORER-TOW TRUCK DISPATCHER [address] [place] [address] Tamica Jenkins, [address] [address] Referral ID Status Reason Start Date Expiration Date Visits Re quested Visits Authorized [id number] Open 03/14/2023 04/07/[address] [facility] for referral (narrative)* Diagnostic Procedure Only (Routine) - Pending Review Specialty Diagnoses / Procedures Referred By Contac t Referred To Contact US IMAGING Diagnoses Blood in semen Scrotal varices Pain in both testicles Procedures US DOPPLER COMPLETE DUP-SCAN ARTL JOSE ABDL/PEL/SCROT&/RPR ORGN COM Fauzia Sorenson PA-C [address] [place] [address] Us Imaging Referral ID Status Reason Start Date Expiration Date Visits Requested Visits Authorized [id number] Pending Review Auto-Generat ed Referral 04/27/2023 05/26/2024 1 1 * Diagnostic Procedure Only (Routine) - Authorized Specialty Diagnoses / Procedures Referred By Satnam lott Referred To Contact US IMAGING Diagnoses Blood in semen Scrotal varices Pain in both testicles Procedures US SCROTUM AND CONTENTS US SCROTUM & CONTENTS Fauzia Sorenson PA-C [address] [place] [phone] Us Imaging Referral ID Status Reason Start Date Expiration Date Visits Requested Visits Authorized [id number] Authorized Auto-Generat ed Referral 04/27/2023 05/26/2024 1 1 [facility] for referral (narrative)* Diagnostic Procedure Only (Routine) - Closed Specialty Diagnoses / Procedures Referred By Satnam lott Referred To Contact US IMAGING Diagnoses Blood in semen Scrotal varices Pain in both testicles Procedures US DOPPLER COMPLETE DUP-SCAN ARTL JOSE ABDL/PEL/SCROT&/RPR ORGN COM Fauzia Sorenson PA-C [address] [phone] Us Imaging [place] [address] Referral ID Status Reason Start Date Expiration Date V isits Requested Visits Authorized [id number] Closed Auto-Generate d Referral 04/30/2023 07/29/2023 1 1 * Diagnostic Procedure Only (Routine) - Closed Specialty Diagnoses / Procedures Referred By Satnam t Referred To Contact US IMAGING Diagnoses Blood in semen Scrotal varices Pain in both testicles Procedures US SCROTUM AND CONTENTS US SCROTUM & CONTENTS Fauzia Sorenson PA-C [address] [facility] [place] [phone] Us Imaging [facility] Referral ID Status Reason Start Date Expiration Date V isits Requested Visits Authorized [id number] Closed Auto-Generate d Referral 04/27/2023 05/26/2024 1 1 [facility] for referral (narrative)* Diagnostic Procedure Only (Routine) - Authorized Specialty Diagnoses / Procedures Referred By Satnam lott Referred To Contact US IMAGING Diagnoses Pain in testicle, unspecified laterality Procedures US DOPPLER COMPLETE DUP-SCAN ARTL JOSE ABDL/PEL/SCROT&/RPR ORGN COM Sonia Kramer PA-C [address] [place], [place] [phone] Us Imaging [place] [address] Referral ID Status Reason Start Date Expiration Date Visits Requested Visits Authorized [id number] Authorized Auto-Generat ed Referral 03/12/2024 04/11/2025 1 1 * Diagnostic Procedure Only (Routine) - Authorized Specialty Diagnoses / Procedures Referred By Satnam lott Referred To Contact US IMAGING Diagnoses Pain in testicle, unspecified laterality Procedures US SCROTUM AND CONTENTS US SCROTUM & CONTENTS Sonia Kramer PA-C [address] [place], [place] [phone] Us Imaging [place] [address] Referral ID Status Reason Start Date Expiration Date Visits Requested Visits Authorized [id number] Authorized Auto-Generat ed Referral 03/12/2024 04/11/2025 1 1 [facility] for referral (narrative)No reason for referral information [facility] Work Phone: Summary Purpose Family History No Family History Records Found Relationship Condition Age at Onset Recorded Date/T trino Unknown Family History?No pe rtinent history Unknown September 27, 2017 6:31pm Family History?No pe rtinent history Unknown March 22, 2018 3:21pm Family History?Unknown Unknown March 122017 3:21pm Relationship Condition Age at Onset Recorded Date/T trino Not Specified Disorder of intestine Unknown Malignant neoplasm of colon Unknown Diabetes mellitus Unknown Anxiety Unknown Arthritis Unknown Malignant neoplasm of breast Unknown Malignant neoplasm Unknown Hypertension Unknown Disorder of thyroid Unknown Advance Directives No Advanced Directives Records Found Advance Directive Response Recorded Date/ Time Do you have a Healthcare Power of Energy Conservation Technician? No March 12, 2025 3:36am Do you have a Healthcare Power of Energy Conservation Technician? No May 01, 2025 8:05pm Advance Directive Response Recorded Date/ Time Do you have a Healthcare Power of Energy Conservation Technician? No March 12, 2025 3:36am Do you have a Healthcare Power of Energy Conservation Technician? No May 01, 2025 8:05pm Do you have a Healthcare Power of Energy Conservation Technician? No July 08, 2025 8:40pm Advance Directive Response Recorded Date/ Time Do you have a Healthcare Power of Energy Conservation Technician? No July 15, 2025 10:12pm Do you have a Healthcare Power of Energy Conservation Technician? No May 01, 2025 8:05pm Do you have a Healthcare Power of Energy Conservation Technician? No July 08, 2025 8:40pm Advance Directive Response Recorded Date/ Time Do you have a Healthcare Power of Energy Conservation Technician? No July 15, 2025 10:12pm Do you have a Healthcare Power of Energy Conservation Technician? No May 01, 2025 8:05pm Do you have a Healthcare Power of Energy Conservation Technician? No July 08, 2025 8:40pm Do you have a Healthcare Power of Energy Conservation Technician? No July 22, 2025 10:58am Reason for Referral Status Reason Specialty Diagnoses / Procedures Referred By Contact Referred To Contact New Request Family Medicine Diagnoses Laceration of left middle finger without foreign body without damage to nail, initial encounter Jun Martinez MD [address] [place] [address] Status Reason Specialty Diagnoses / Procedures Referred By Contact Referred To Contact New Request Family Medicine Diagnoses Chronic pain in testicle Camilo Phipps, DO [address] [place] [address] Specialty Diagnoses / Procedures Referred By Contac t Referred To Contact Diagnoses Vasculogenic erectile dysfunction, unspecified vasculogenic erectile dysfunction type Urinary frequency Microscopic hematuria Procedures US RENAL RETROPERITONEAL Hortencia Lira, TOW TRUCK DISPATCHER [address] [address] Referral ID Status Reason Start Date Expiration Date Visits Re quested Visits Authorized [id number] Closed 02/22/2022 03/19/2023 1 1 Specialty Diagnoses / Procedures Referred By Contac t Referred To Contact Hortencia Lira CNP [address] [place] [address] Referral ID Status Reason Start Date Expiration Date V isits Requested Visits Authorized [id number] Pending Review 1 1 Specialty Diagnoses / Procedures Referred By Contac t Referred To Contact Computerized Tomography Scan Diagnoses Kidney stone Procedures CT ABDOMEN/PELVIS WITHOUT CONTRAST CHG CT SCAN,ABDOMENT AND PELVIS,W/O CONTRAST Hortencia Lira CNP [address] [place] [address] Scan [address] [place] [address] Referral ID Status Reason Start Date Expiration Date V isits Requested Visits Authorized [id number] Pending Review 03/07/2022 04/01/2023 1 1 Referral ID Status Reason Start Date Expiration Date Visits Re quested Visits Authorized [id number] Closed 03/07/2022 04/01/2023 1 1 Specialty Diagnoses / Procedures Referred By Contac t Referred To Contact Diagnoses Elevated prolactin level Procedures MRI PITUITARY WITH AND WITHOUT CONTRAST CA MRI BRAIN COMBO Hortencia Lira CNP [address] [place] [address] Referral ID Status Reason Start Date Expiration Date V isits Requested Visits Authorized [id number] Auth Not Needed 03/29/2022 04/23/2023 1 1 Specialty Diagnoses / Procedures Referred By Contac t Referred To Contact Endocrinology, Diabetes & Metabolism Diagnoses Elevated prolactin level Hortencia Lira CNP [address] [place] [address] Hugo Umana MD [address] [place] [address] Referral ID Status Reason Start Date Expiration Date V isits Requested Visits Authorized [id number] New Request 03/29/2022 04/23/2023 1 1 Specialty Diagnoses / Procedures Referred By Contac t Referred To Contact Magnetic Resonance Imaging Diagnoses Elevated prolactin level Procedures MRI PITUITARY WITH AND WITHOUT CONTRAST CA MRI BRAIN ALEKSEYO Hortencia Lira, TOW TRUCK DISPATCHER [address] [place] [address] Joleen Ont Mri [address] [place] [address] Referral ID Status Reason Start Date Expiration Date Visits Re quested Visits Authorized [id number] Closed 03/29/2022 04/23/2023 1 1 Specialty Diagnoses / Procedures Referred By Contac t Referred To Contact [facility] Diagnoses Pelvic pain in male Pain in testicle, unspecified laterality Procedures CONSULT TO PHYSICAL THERAPY PHYSICAL THERAPY EVALUATION HIGH COMPLEX 45 MINS Fauzia Sorenson PA-C [address] [place] [address] [facility] [address] [place] [address] Referral ID Status Reason Start Date Expiration Date Visits Requested Visits Authorized [id number] Pending Review Auto-Generat ed Referral 07/15/2024 07/15/2025 1 1 Discharge Instructions * Attachments The following attachments cannot be sent through Care Everywhere. * Hand Laceration: Stitches (Gibraltarian) documented in this encounter* Instructions* Camilo Phipps, DO - 07/16/2019 Follow-up with Dr. Garcia or the [facility] referral line to obtain further evaluation. [...] History of Present Illness * Shyam Harrison, INCINERATOR PLANT LABORER-TOW TRUCK DISPATCHER - 09/09/2020 10:30 AM EDT New Patient Visit Josafat Alvarenga [id number] 1985 09/09/2020 Chief Complaint Patient presents with [...] was given clonidine then. He was at [facility] in [facility]. He says that hehas a hx of [...] living in a sober living house in [place]. He will be there for 6 months. [...] file Gets together: Not on file Attends mu-ism service: Not on file Active member of [...] Physical Exam documented in this encounter* Shyam Harrison APRN-CNP - 09/23/2020 10:30 AM EST Follow Up Visit Josafat Alvarenga [id number] 1985 09/23/2020 Chief Complaint Patient presents with [...] was given clonidine then. He was at [facility] in [facility]. He says that hehas a hx of [...] living in a sober living house in [place]. He will be there for 6 months. [facility] [employer] [facility]. Asthma- dx when he was [...] file Gets together: Not on file Attends mu-ism service: Not on file Active member of [...] kind of ED med. -will try Viagra. Dan in 1 month. -ED and medical management with Viagra. Dan as needed. Call the office for any [...] PM EST Follow Up Visit Josafat Alvarenga [id number] 1985 10/21/2020 Chief Complaint Patient presents with [...] 1 month. -ED and medical management with ViagraLuis Fu as needed. Today: Here for follow [...] file Gets together: Not on file Attends mu-ism service: Not on file Active member of [...] AM EST Follow Up Visit Josafat Alvarenga [id number] 1985 11/18/2020 Chief Complaint Patient presents with Other 1 month follow up History of Present Illness: Josafat Alvarenga is [...] file Gets together: Not on file Attends mu-ism service: Not on file Active member of [...] PM EDT Follow Up Visit Josafat Alvarenga [id number] 1985 02/16/2021 Chief Complaint Patient presents with Asthma Other Pt c/o a painful lump in his RT breast for the past month, stable History of Present Illness: Josafat Alvraenga is a 35 y.o. male presenting for [...] Friends and Family: Not on file Attends Religion Services: Not on file Active Member of [...] disorder RAVEN Pettit documented in this encounter Chief Complaint and Reason for Visit Chief Complaint Admit Date lac January 05, 2025 7:07pm chicken stuck March 12, 2025 3:36am CONSTIPATION May 01, 2025 7:25 pm Chief Complaint Admit Date chicken stuck March 12, 2025 3:36am CONSTIPATION May 01, 2025 7:25 pm Wrist pain July 08, 2025 8: 40pm Chief Complaint Admit Date CONSTIPATION May 01, 2025 7:25 pm Wrist pain July 08, 2025 8: 40pm testicle pain July 15, 2025 9:12pm Chief Complaint Admit Date CONSTIPATION May 01, 2025 7:25 pm Wrist pain July 08, 2025 8: 40pm testicle pain July 15, 2025 9:12pm Dysphagia July 20, 2025 2:17pm Reason for Visit Admit Date Dysphagia July 20, 2025 2:17pm Reason for Visit Admit Date Dysphagia July 20, 2025 2:17pm Dysphagia July 23, 2025 9:53am Foreign body in esophagus July 9:53am Eosinophilic esophagitis July 23, 2025 9:53am Additional Source Comments (unrecognized sect ion and content) No Status Records FoundNo Status Records FoundNo Status Records FoundNo Status Records FoundNo Status Records FoundNo Status Records FoundNo Status Records FoundNo Status Records FoundNo Status Records FoundNo Status Records FoundNo Status Records Found INFORMATION SOURCE (unrecogn ized section and content) DATE CREATED AUTHOR 05/02/2018 [facility] DATE CREATED AUTHOR AUTHOR'S ORGANIZ ATION 10/18/2022 [facility] DATE CREATED AUTHOR AUTHOR'S ORGANIZ ATION 03/25/2023 [facility] latory DATE CREATED AUTHOR AUTHOR'S ORGANIZ ATION 04/21/2023 [facility] DATE CREATED AUTHOR AUTHOR'S ORGANIZ ATION 03/13/2024 [facility] dical Center DATE CREATED AUTHOR AUTHOR'S ORGANIZ ATION 03/24/2024 [facility] ([place]) DATE CREATED AUTHOR AUTHOR'S ORGANIZ ATION 09/27/2024 [facility] DATE CREATED AUTHOR AUTHOR'S ORGANIZ ATION 02/28/2025 [facility] DATE CREATED AUTHOR AUTHOR'S ORGANIZ ATION 03/21/2025 [facility] DATE CREATED AUTHOR AUTHOR'S ORGANIZ ATION 07/26/2025 [facility] DATE CREATED AUTHOR AUTHOR'S ORGANIZ ATION 08/01/2025 [facility] Reason for Visit (unrecogniz ed section and [...] ED Specialty Diagnoses / Procedures Referred By Contlianne t Referred To Contact Diagnoses Vasculogenic erectile dysfunction, unspecified vasculogenic erectile dysfunction type Urinary frequency Microscopic hematuria Procedures US RENAL RETROPERITONEAL Hortencia Lira, TOW TRUCK DISPATCHER [address] [place] [address] Referral ID Status Reason Start Date Expiration Date Visits Re quested Visits Authorized [id number] Closed 02/22/2022 03/19/2023 1 1 Reason Comments Follow-up Erectile Dysfunction Kidney Stone Specialty Diagnoses / Procedures Referred By Satnam t Referred To Contact Computerized Tomography Scan Diagnoses Kidney stone Procedures CT ABDOMEN/PELVIS WITHOUT CONTRAST CHG CT SCAN,ABDOMENT AND PELVIS,W/O CONTRAST Hortencia Lira CNP [address] [place], [place] [phone] Joleen Ont Ct Scan [address] [place] [phone] Referral ID Status Reason Start Date Expiration Date Visits Re quested Visits Authorized [id number] Closed 03/07/2022 04/01/2023 1 1 Reason Comments Follow-up Erectile Dysfunction Specialty Diagnoses / Procedures Referred By Satnam lott Referred To Contact Magnetic Resonance Imaging Diagnoses Elevated prolactin level Procedures MRI PITUITARY WITH AND WITHOUT CONTRAST CA MRI BRAIN COMBO Hortencia Lira CNP [address] [place] [address] Joleen Ont Mri [address] [place] [phone] Referral ID Status Reason Start Date Expiration Date Visits Re quested Visits Authorized [id number] Closed 03/29/2022 04/23/2023 1 1 Reason Comments [...] erral to Urology, Pt was dc from [facility] d/t multipple No Shows. Pt requesting his old urologist with [facility], tamica Ventura reports a lot of [...] US SCROTUM & CONTENTS Fauzia Sorenson PA-C [address] [phone] Us Imaging [place] [address] Referral ID Status Reason Start Date Expiration Date V isits Requested Visits Authorized [id number] Closed Auto-Generate d Referral 04/27/2023 05/26/2024 1 1 Reason Comments Groin Pain R testicular pain x3 days Reason Comments Testicular Pain Reason Comments Orders Reason Comments Radiology US Specialty Diagnoses / Procedures Referred By Contac t Referred To Contact US IMAGING Diagnoses Pain in testicle, unspecified laterality Procedures US SCROTUM AND CONTENTS US SCROTUM & CONTENTS Sonia Kramer PA-C [address] [phone] Us Imaging [place] [address] Referral ID Status Reason Start Date Expiration Date V isits Requested Visits Authorized [id number] Closed Auto-Generate d Referral 03/12/2024 04/11/2025 1 [...] HIGH COMPLEX 45 MINS Fauzia Sorenson PA-C [address] [phone] [facility] [place] [address] Referral ID Status Reason Start Date Expiration Date Visits Requested Visits Authorized [id number] Waiting for Response Auto-Generated Referral OON Notification Letter Financial Clearance Required - OON Payor 11/12/2023 11/11/2024 1 1 Reason Comments Sexual Problem Specialty Diagnoses / Procedures Referred By Contac t Referred To Contact Urology / UROLOGY Diagnoses DISCUSS ED Procedures EST UROL Self Fauzia Sorenson PA-C [address] [place] [address] Referral ID Status Reason Start Date Expiration Date Visits Requested Visits Authorized [id number] Denied OON Notification Letter Clearance Not Met - Admin/Hat Presser/D irector Advise to Postpone/Resched ule or Not [...] file Gets together: Not on file Attends mu-ism service: Not on file Active member of [...] Care Teams (unrecognized sec tion and content) Leak Gang Supervisor Relationship Specialty Start Date End Date Shyam Harrison, INCINERATOR PLANT LABORER-TOW TRUCK DISPATCHER [address] [place] [address] PCP - General Family Medicine 09/09/20 Leak Gang Supervisor Relationship Specialty Start Date End Date Shyam Harrison INCINERATOR PLANT LABORER-TOW TRUCK DISPATCHER [address] [place] [address] PCP - General Family Medicine 09/09/20 Leak Gang Supervisor Relationship Specialty Start Date End Date Shyam Harrison INCINERATOR PLANT LABORER-TOW TRUCK DISPATCHER [address] [facility] [place] [address] PCP - General Family Medicine 09/09/20 Leak Gang Supervisor Relationship Specialty Start Date End Date Shyam Harrison INCINERATOR PLANT LABORER-TOW TRUCK DISPATCHER [address] [place] [address] PCP - General Family Medicine 09/09/20 Leak Gang Supervisor Relationship Specialty Start Date End Date Shyam Harrison, INCINERATOR PLANT LABORER-TOW TRUCK DISPATCHER [address] [place] [address] PCP - General Family Medicine 09/09/20 Leak Gang Supervisor Relationship Specialty Start Date End Date Shyam Harrison INCINERATOR PLANT LABORER-TOW TRUCK DISPATCHER [address] [facility] [place] [address] PCP - General Family Medicine 09/09/20 Leak Gang Supervisor Relationship Specialty Start Date End Date Shyam Harrison INCINERATOR PLANT LABORER-TOW TRUCK DISPATCHER [address] [facility] [place] [address] PCP - General Family Medicine 09/09/20 Leak Gang Supervisor Relationship Specialty Start Date End Date Shyam Harrison, INCINERATOR PLANT LABORER-TOW TRUCK DISPATCHER [address] [facility] [place] [address] PCP - General Family Medicine 09/09/20 Leak Gang Supervisor Relationship Specialty Start Date End Date Shyam Harrison, INCINERATOR PLANT LABORER-TOW TRUCK DISPATCHER [address] [facility] [place] [address] PCP - General Family Medicine 09/09/20 Leak Gang Supervisor Relationship Specialty Start Date End Date Shyam Harrison, INCINERATOR PLANT LABORER-TOW TRUCK DISPATCHER [address] [facility] [place] [address] PCP - General Family Medicine 09/09/20 Leak Gang Supervisor Relationship Specialty Start Date End Date Shyam Harrison, INCINERATOR PLANT LABORER-TOW TRUCK DISPATCHER [address] [facility] [place] [address] PCP - General Family Medicine 09/09/20 Leak Gang Supervisor Relationship Specialty Start Date End Date Shyam Harrison, INCINERATOR PLANT LABORER-TOW TRUCK DISPATCHER [address] [facility] [place] [address] PCP - General Family Medicine 09/09/20 Leak Gang Supervisor Relationship Specialty Start Date End Date Emmanuel Gonzalez MD [address] [place] [address] PCP - General Family Medicine 07/12/17 Leak Gang Supervisor Relationship Specialty Start Date End Date Emmanuel Gonzalez MD [address] [place] [address] PCP - General Family Medicine 07/12/17 Leak Gang Supervisor Relationship Specialty Start Date End Date Emmanuel Gonzalez MD [address] [place] [address] PCP - General Family Medicine 07/12/17 Leak Gang Supervisor Relationship Specialty Start Date End Date Emmanuel Gonzalez MD [address] [facility] [address] PCP - General Family Medicine 07/12/17 Leak Gang Supervisor Relationship Specialty Start Date End Date Emmanuel Gonzalez MD [address] [facility] [address] PCP - General Family Medicine 07/12/17 Leak Gang Supervisor Relationship Specialty Start Date End Date Emmanuel Gonzalez MD [address] [facility] [address] PCP - General Family Medicine 07/12/17 Leak Gang Supervisor Relationship Specialty Start Date End Date Emmanuel Gonzalez MD [address] [facility] [address] PCP - General Family Medicine 07/12/17 Leak Gang Supervisor Relationship Specialty Start Date End Date Emmanuel Gonzalez MD [address] [facility] [address] PCP - General Family Medicine 07/12/17 Leak Gang Supervisor Relationship Specialty Start Date End Date Emmanuel Gonzalez MD [address] [facility] [address] PCP - General Family Medicine 07/12/17 Leak Gang Supervisor Relationship Specialty Start Date End Date Emmanuel Gonzalez MD [address] [facility] [address] PCP - General Family Medicine 07/12/17 Leak Gang Supervisor Relationship Specialty Start Date End Date Emmanuel Gonzalez MD [address] [facility] [address] PCP - General Family Medicine 07/12/17 Leak Gang Supervisor Relationship Specialty Start Date End Date Emmanuel Gonzalez MD [address] [facility] [address] PCP - General Family Medicine 07/12/17 Leak Gang Supervisor Relationship Specialty Start Date End Date Emmanuel Gonzalez MD [address] [facility] [address] PCP - General Family Medicine 07/12/17 Leak Gang Supervisor Relationship Specialty Start Date End Date Emmanuel Gonzalez MD [address] [facility] [address] PCP - General Family Medicine 07/12/17 Leak Gang Supervisor Relationship Specialty Start Date End Date Emmanuel Gonzalez MD [address] [facility] [address] PCP - General Family Medicine 07/12/17 Leak Gang Supervisor Relationship Specialty Start Date End Date Emmanuel Gonzalez MD [address] [facility] [address] PCP - General Family Medicine 07/12/17 Leak Gang Supervisor Relationship Specialty Start Date End Date Emmanuel Gonzalez MD [address] [facility] [address] PCP - General Family Medicine 07/12/17 Team Status: Active Member Role Status Dates No Primary Care Physician Primary Care Provider Active Team Status: Inactive Member Role Status Dates No Primary Care Physician Primary Care Provider Active Start: January 05, 2025 End: January 05, 2025 Ed Physician Provider Attending Provider Active Start: January 05, 2025 End: January 05, 2025 Ed Physician Provider Emergency Provider Active Start: January 05, 2025 End: January 05, 2025 Team Status: Inactive Member Role Status Dates No Primary Care Physician Primary Care Provider Active Start: March 12, 2025 End: March 12, 2025 Dr. Gildardo Rubio , Attending Provider Active Start: March 12, 2025 End: March 12, 2025 Dr. Gildardo Rubio DO Emergency Provider Active Start: March 12, 2025 End: March 12, 2025 Team Status: Inactive Member Role Status Dates No Primary Care Physician Primary Care Provider Active Start: May 01, 2025 End: May 01, 2025 Dr. Ramo Heck , Referring Provider Active Start: May 01, 2025 End: May 01, 2025 Dr. Ramo Heck , Emergency Provider Active Start: May 01, 2025 End: May 01, 2025 Team Status: Active Member Role/Relationship Status Dates No Primary Care Physician Primary Care Provider Active Team Status: Inactive Member Role/Relationship Status Dates No Primary Care Physician Primary Care Provider Active Start: March 12, 2025 End: March 12, 2025 Dr. Gildardo Rubio DO Attending Provider Active Start: March 12, 2025 End: March 12, 2025 Dr. Gildardo Rubio , Emergency Provider Active Start: March 12, 2025 End: March 12, 2025 Team Status: Inactive Member Role/Relationship Status Dates No Primary Care Physician Primary Care Provider Active Start: May 01, 2025 End: May 01, 2025 Dr. Ramo Heck DO Attending Provider Active Start: May 01, 2025 End: May 01, 2025 Dr. Ramo Heck DO Referring Provider Active Start: May 01, 2025 End: May 01, 2025 Dr. Ramo Heck DO Emergency Provider Active Start: May 01, 2025 End: May 01, 2025 Team Status: Inactive Member Role/Relationship Status Dates No Primary Care Physician Primary Care Provider Active Start: July 08, 2025 End: July 08, 2025 Dr. Gary Nair DO Emergency Provider Active Start: July 08, 2025 End: July 08, 2025 Team Status: Inactive Member Role/Relationship Status Dates No Primary Care Physician Primary Care Provider Active Start: May 01, 2025 End: May 01, 2025 Dr. Ramo Heck DO Attending Provider Active Start: May 01, 2025 End: May 01, 2025 Dr. Ramo Heck DO Referring Provider Active Start: May 01, 2025 End: May 01, 2025 Dr. Ramo Heck DO Emergency Provider Active Start: May 01, 2025 End: May 01, 2025 Team Status: Inactive Member Role/Relationship Status Dates No Primary Care Physician Primary Care Provider Active Start: July 08, 2025 End: July 08, 2025 Dr. Gary Nair DO Attending Provider Active Start: July 08, 2025 End: July 08, 2025 Dr. Gary Nair DO Emergency Provider Active Start: July 08, 2025 End: July 08, 2025 Team Status: Inactive Member Role/Relationship Status Dates No Primary Care Physician Primary Care Provider Active Start: July 15, 2025 End: July 15, 2025 Dr. Freddy Btares MD Emergency Provider Active S tart: July 15, 2025 End: July 15, 2025 Team Status: Inactive Member Role/Relationship Status Dates No Primary Care Physician Primary Care Provider Active Start: July 15, 2025 End: July 15, 2025 Dr. Freddy Batres MD Attending Provider Active S tart: July 15, 2025 End: July 15, 2025 Dr. Freddy Batres MD Emergency Provider Active S tart: July 15, 2025 End: July 15, 2025 Team Status: Inactive Member Role/Relationship Status Dates No Primary Care Physician Primary Care Provider Active Start: July 20, 2025 End: July 20, 2025 No Primary Care Physician Referring Provider Active Start: July 20, 2025 End: July 20, 2025 SHANE Heard Attending Provider Active Start: July 20, 2025 End: July 20, 2025 Team Status: Inactive Member Role/Relationship Status Dates No Primary Care Physician Primary Care Provider Active Start: July 23, 2025 End: July 23, 2025 No Primary Care Physician Referring Provider Active Start: July 23, 2025 End: July 23, 2025 Dr. Anderson Conroy DO Attending Provider Active Start: July 23, 2025 End: July 23, 2025 Team Status: Active Member Role/Relationship Status Dates No Primary Care Physician Primary Care Provider Active Start: July 23, 2025 No Primary Care Physician Referring Provider Active Start: July 23, 2025 Dr. Anderson Conroy DO Attending Provider Active Start: July 23, 2025 Dr. Anderson Conroy DO Other Provider Active St art: July 23, 2025 Scheduled Active and Recently Administ ered Medications [...] or prosecute any alcohol or drug abuse patient.[facility] the event this information is protected by the Federal Confidentiality of Alcohol and Drug Abuse Patient Records regulations: The Federal rules restrict any use of the information to criminally investigate or prosecute any alcohol or drug abuse patient.[facility] the event this information is protected by the Federal Confidentiality of Alcohol and Drug Abuse Patient Records regulations: The Federal rules restrict any use of the information to criminally investigate or prosecute any alcohol or drug abuse patient.[facility] the event this information is protected by the Federal Confidentiality of Alcohol and Drug Abuse Patient Records regulations: The Federal rules restrict any use of the information to criminally investigate or prosecute any alcohol or drug abuse patient.[facility] the event this information is protected by the Federal Confidentiality of Alcohol and Drug Abuse Patient Records regulations: The Federal rules restrict any use of the information to criminally investigate or prosecute any alcohol or drug abuse patient.[facility] the event this information is protected by the Federal Confidentiality of Alcohol and Drug Abuse Patient Records regulations: The Federal rules restrict any use of the information to criminally investigate or prosecute any alcohol or drug abuse patient.[facility] the event this information is protected by the Federal Confidentiality of Alcohol and Drug Abuse Patient Records regulations: The Federal rules restrict any use of the information to criminally investigate or prosecute any alcohol or drug abuse patient.[facility] the event this information is protected by the Federal Confidentiality of Alcohol and Drug Abuse Patient Records regulations: The Federal rules restrict any use of the information to criminally investigate or prosecute any alcohol or drug abuse patient.[facility]In the event this information is protected by the Federal Confidentiality of Alcohol and Drug Abuse Patient Records regulations: The Federal rules restrict any use of the information to criminally investigate or prosecute any alcohol or drug abuse patient.[facility] the event this information is protected by the Federal Confidentiality of Alcohol and Drug Abuse Patient Records regulations: The Federal rules restrict any use of the information to criminally investigate or prosecute any alcohol or drug abuse patient.[facility] the event this information is protected by the Federal Confidentiality of Alcohol and Drug Abuse Patient Records regulations: The Federal rules restrict any use of the information to criminally investigate or prosecute any alcohol or drug abuse patient.[facility] the event this information is protected by the Federal Confidentiality of Alcohol and Drug Abuse Patient Records regulations: The Federal rules restrict any use of the information to criminally investigate or prosecute any alcohol or drug abuse patient.[facility] the event this information is protected by the Federal Confidentiality of Alcohol and Drug Abuse Patient Records regulations: The Federal rules restrict any use of the information to criminally investigate or prosecute any alcohol or drug abuse patient.[facility]In the event this information is protected by the Federal Confidentiality of Alcohol and Drug Abuse Patient Records regulations: The Federal rules restrict any use of the information to criminally investigate or prosecute any alcohol or drug abuse patient.[facility]In the event this information is protected by the Federal Confidentiality of Alcohol and Drug Abuse Patient Records regulations: The Federal rules restrict any use of the information to criminally investigate or prosecute any alcohol or drug abuse patient.[facility]In the event this information is protected by the Federal Confidentiality of Alcohol and Drug Abuse Patient Records regulations: The Federal rules restrict any use of the information to criminally investigate or prosecute any alcohol or drug abuse patient.[facility]In the event this information is protected by the Federal Confidentiality of Alcohol and Drug Abuse Patient Records regulations: The Federal rules restrict any use of the information to criminally investigate or prosecute any alcohol or drug abuse patient.[facility]In the event this information is protected by the Federal Confidentiality of Alcohol and Drug Abuse Patient Records regulations: The Federal rules restrict any use of the information to criminally investigate or prosecute any alcohol or drug abuse patient.[facility]In the event this information is protected by the Federal Confidentiality of Alcohol and Drug Abuse Patient Records regulations: The Federal rules restrict any use of the information to criminally investigate or prosecute any alcohol or drug abuse patient.[facility]In the event this information is protected by the Federal Confidentiality of Alcohol and Drug Abuse Patient Records regulations: The Federal rules restrict any use of the information to criminally investigate or prosecute any alcohol or drug abuse patient.[facility]In the event this information is protected by the Federal Confidentiality of Alcohol and Drug Abuse Patient Records regulations: The Federal rules restrict any use of the information to criminally investigate or prosecute any alcohol or drug abuse patient.[facility]In the event this information is protected by the Federal Confidentiality of Alcohol and Drug Abuse Patient Records regulations: The Federal rules restrict any use of the information to criminally investigate or prosecute any alcohol or drug abuse patient.[facility]In the event this information is protected by the Federal Confidentiality of Alcohol and Drug Abuse Patient Records regulations: The Federal rules restrict any use of the information to criminally investigate or prosecute any alcohol or drug abuse patient.[facility]In the event this information is protected by the Federal Confidentiality of Alcohol and Drug Abuse Patient Records regulations: The Federal rules restrict any use of the information to criminally investigate or prosecute any alcohol or drug abuse patient.[facility] Goals (unrecognized section and content) Goals may be documented in a n alternate section FOR RECORDS PERTAINING TO PATIENTS WHO ARE [...] BE BASED ON THE PRIMARY CLINICAL RECORDS. [facility] [employer] provides no warranty or guarantee of the accuracy or completeness of information in this document.
--- NOTE | 2025-08-04 22:06 | EDS_ITS ---
HPI History of Present Illness Chief Complaint: Nausea/Vomiting [facility] Medical History Wears glasses ADHD Depression Diabetes Restless legs Injury of back Migraine headache Blackout Difficulty chewing Chronic constipation Smoker Asthma Shortness of breath on exertion History of edema Hypertension History of varicocele GERD (gastroesophageal reflux disease) History of esophageal dilatation Paranoid schizophrenia History of intravenous drug abuse Hepatitis C Marijuana smoker Home Medications ?Medication ?Instructions ?Recorded ?Last Taken ?Type paliperidone palmitate 234 mg/1.5 234 mg IM Q30D 03/12 Unknown History mL intramuscular syringe (Invega Sustenna) clonidine HCl 0.1 mg tablet 0.1 - 0.2 mg PO QHS Unknown History doxepin 50 mg capsule 50 mg PO QHS 07/15/25 Unknow n History hydroxyzine pamoate 25 mg capsule 25 mg PO TID PRN PRN anxiety 07/15/25 Unknown History quetiapine 50 mg tablet 50 mg PO QHS 07/15/25 Unknow n History albuterol sulfate 90 mcg/actuation 1 inh inhalation Q6 H PRN shortness 07/22/25 Unknown History breath activated powder inhaler of breath or wheezing atomoxetine 100 mg capsule 100 mg PO DAILY 07/22/25 Un known History benztropine 1 mg tablet 1 mg PO DAILY 07/22/25 Unkno wn History cholecalciferol (vitamin D3) 1,250 1,250 mcg PO QWEEK 07/22/25 Unknown History mcg (50,000 unit) capsule polyethylene glycol 3350 17 17 g PO DAILY 07/22/25 Unk nown History gram/dose oral powder pantoprazole 40 mg tablet,delayed 40 mg PO BID 60 days #120 tabs 07/23/25 U nknown Rx release prednisolone 15 mg/5 mL oral 30 mg (10 mL) PO BID 30 d ays #600 07/23/25 Unknown Rx solution mL ondansetron 4 mg disintegrating 4 mg PO Q8H PRN PRN Na usea #10 tabs 08/04/25 Unknown Rx tablet valacyclovir 1 gram tablet 1,000 mg PO Q8H 10 days #30 tabs 08/04/25 Unknown Rx Allergy/AdvReac Type Severity Reaction Status Date / Time latex Allergy Mild Rash Verified 08/04/25 21:15 cyclobenzaprine HCl (From Allergy Angioedema Verified 08/04/25 21:15 Flexeril) Family History Other Anxiety Arthritis Bowel disease Breast cancer Cancer Colon cancer Diabetes Hypertension Thyroid disorder Surgical History History of incision and drainage History of esophagogastroduodenoscopy (EGD) History of placement of ear tubes Hx of tonsillectomy Hx of vasectomy Social History Smoking Status: Current every day smoker tobacco type: cigarettes and e- cigarettes alcohol intake: former substance use type: does not use what type of physical activity do you participate in: none EXAM Physical Exam Const Vital Signs: 08/04/25 21:13 08/04/25 23:00 Temperature 98.1 F Temperature Source Oral Pulse Rate 79 74 Respiratory Rate 16 14 Blood Pressure 134/93 H 108/62 Blood Pressure Mean 106 77 Pulse Ox 100 95 Oxygen Delivery Method Room Air Room Air MDM MDM MDM Narrative Medical decision making narrative: HISTORY OF PRESENT ILLNESS: Chief complaint: Nausea and vomiting 40-year-old male history of paranoid schizophrenia, asthma, hepatitis C, tobacco use, eosinophilic esophagitis, polysubstance abuse presents with nausea vomiting and dizziness. He states this started yesterday. He further states I think I have shingles in my back. He denies travel, surgery, recent antibiotics or sick contacts. Denies any new or different foods. Notes despite nausea vomiting still able to eat and drink. Denies history abdominal surgery. Denies diarrhea. Denies urinary complaints. REVIEW OF SYSTEMS: Pertinent positives: Nausea vomiting, dizziness, rash Pertinent negatives: Headache, focal weakness, abdominal pain PHYSICAL EXAM: Nursing triage notes reviewed, Vital signs reviewed Constitutional: please see mdm HENT: MMM Eyes: Pupils equal round and reactive to light, Extraocular muscles intact Neck: No stridor, no JVD, full neck ROM Lungs: Clear to auscultation, No wheezing or rales. No increased work of breathing, no conversational dyspnea, no accessory muscle use, no nasal flaring. No respiratory distress noted Heart: Regular rate and rhythm, No murmurs, No rubs and No gallops, 2+ distal pulses (radial, femoral, posterior tibial) in all extremities Abdomen: Soft, there is no tenderness, rigidity, rebound or guarding, no obvious peritoneal signs, no palpable pulsatile abdominal masses, no auscultated abdominal bruit : No CVAT Extremities: No edema Neuro: Alert and oriented x3, neuro exam at baseline, cranial nerves II through XII are intact. No pain with extraocular muscle movement. There is negative test of skew. 5 of 5 strength in upper and lower extremities in flexion extension. Intact sensation to light touch in upper and lower extremity dermatomes. No truncal or extremity ataxia. No dysdiadochokinesia. Normal gait. 2+ reflexes in upper and lower extremities. No meningeal signs. Negative Babinski. NIH of 0. Skin: There is a small approximate 1 x 1 cm area of erythema with vesicular changes that are overlying noted just right of the spine. Psych: Goal-directed thought process, not responding internal stimuli MEDICAL DECISION MAKING: Chief Complaint: please see HPI External records reviewed: Reviewed prior ED visits. Reviewed prior imaging studies. Reviewed acute abdominal series from April 2025 which showed fecal retention. Otherwise unremarkable Factors affecting care: As per HPI Social determinants of health: History of mental health and substance use disorder History obtained from others: Significant other Consults: none MDM Narrative: The patient was initially hemodynamically stable, afebrile and nontoxic- appearing. Exam with a benign abdomen. No obvious peritoneal signs. Rash on the patient's back may be related to herpes zoster infection. No signs of disseminated zoster. I considered the following differential diagnosis: Dehydration, electrolyte disturbance, bowel obstruction, bowel perforation, cellulitis or shingles I obtained labs to further determine if the patient was suffering from a life- threatening etiology. Initially assisted patient with IV fluids and Zofran. While I considered posterior circulation CVA or other acute intracranial malady producing the patient's dizziness I do not feel the patient is suffering from an acute intracranial issue at this time as evidenced by him not reporting a headache. Him having a nonfocal neurologic exam. No indication for advanced imaging of the brain at this time. The patient abdominal exam was benign and not consistent with a bowel obstruction perforation or other acute surgical pathology of the abdomen or pelvis. As such advanced imaging the abdomen pelvis (i.e. CT scan or x-ray) were not indicated at this time. ALL IMAGES (IF OBTAINED) HAVE BEEN PERSONALLY REVIEWED AND INTERPRETED BY MYSELF. EKG with normal sinus rhythm, rate of 77, normal axis, normal intervals, no STEMI, CBC without leukocytosis (in conjunction with a benign abdominal exam without leukocytosis it is unlikely the patient has significant intra-abdominal surgical emergency), severe anemia, no thrombocytopenia. BMP without evidence of significant electrolyte abnormalities, no anion gap, no acute kidney injury. LFTs show no evidence of hepatobiliary pathology. Lipase is wnl indicating no pancreatic inflammation. Repeat abdominal exam remained benign. Patient's vitals remained stable. He is able to tolerate p.o. Will give a prescription for valacyclovir. Will give prescription for Zofran. The patient and/or family, caregivers express understanding. The patient and/or family, caregivers agrees with the plan. Shared decision making: I will have a discussion with the patient and or visitors regarding risk/benefits of further testing or admission. They will be made aware of of the risk/benefits inherent in this decision they will be given the opportunity to voice understanding. Total critical care time today provided was at least 0 minutes. This excludes separately billable procedures. Critical care time (if documented) is secondary to the patient having high probability of clinically significant/life threatening deterioration in the patient's condition which required my urgent intervention. Impression: 1. Nausea vomiting 2. Shingles Dispo: Discharge This note was generated with [employer] dictation software. It may contain incorrect words, spelling, and punctuation that were not noted in review of the chart p rior to signing. Lab Data Labs: Laboratory Results - last 24 hr 08/04/25 21:29 WBC 8.4 RBC 4.64 Hgb 14.5 Hct 40.9 MCV 88.1 MCH 31.3 MCHC 35.5 RDW Std Deviation 40.3 RDW Coeff of Jeffrey 12.6 Plt Count 262 MPV 9.6 Immature Gran % (Auto) 0.400 Neut % (Auto) 67.4 Lymph % (Auto) 17.7 L [place] % (Auto) 5.2 Eos % (Auto) 8.8 H Baso % (Auto) 0.5 Absolute Neuts (auto) 5.7 Absolute Lymphs (auto) 1.49 Nucleated RBC % 0 Sodium 140 Potassium 3.5 Chloride 102 Carbon Dioxide 25.5 Anion Gap 12 BUN 4 Creatinine 0.97 Estim Creat Clear Calc 74.47 Est GFR (MDRD) Non-Af 100 BUN/Creatinine Ratio 4.0 L Glucose 73 Calcium 8.9 Total Bilirubin 0.61 AST 21 ALT 13 Alkaline Phosphatase 93 Total Protein 6.4 Albumin 4.1 Globulin 2.3 Albumin/Globulin Ratio 1.7 Lipase 15 Discharge Plan Triage Chief Complaint: Nausea/Vomiting ED Provider: Gary Nair Dx/Rx/DC Orders Instructions: ED Vomiting (Adult), ED Shingles (Herpes Zoster) Prescriptions: New valacyclovir 1 gram tablet 1,000 mg PO Q8H 10 Days Qty: 30 3RF ondansetron 4 mg tablet,disintegrating 4 mg PO Q8H PRN PRN (Reason: Nausea) Qty: 10 0RF No Action doxepin 50 mg capsule 50 mg PO QHS clonidine HCl 0.1 mg tablet 0.1 - 0.2 mg PO QHS hydroxyzine pamoate 25 mg capsule 25 mg PO TID PRN PRN (Reason: anxiety) quetiapine 50 mg tablet 50 mg PO QHS Invega Sustenna 234 mg/1.5 mL syringe 234 mg IM Q30D polyethylene glycol 3350 17 gram/dose powder 17 g PO DAILY atomoxetine 100 mg capsule 100 mg PO DAILY benztropine 1 mg tablet 1 mg PO DAILY albuterol sulfate 90 mcg/actuation aerosol powdr breath activated 1 inh inhalation Q6H PRN (Reason: shortness of breath or wheezing) cholecalciferol (vitamin D3) 1,250 mcg (50,000 unit) capsule 1,250 mcg PO QWEEK pantoprazole 40 mg tablet,delayed release (DR/EC) 40 mg PO BID 60 Days Qty: 120 3RF prednisolone 15 mg/5 mL solution 30 mg PO BID 30 Days Qty: 600 0RF Primary Care Provider: Care Physician,No Primary Referrals: Andrea Kaur MD [Med Staff - [place] Supervisor, Family Practice] Activity Restrictions/Additional Instructions: Thank you for trusting us with your care today! Your labs are reassuring. Please take Zofran as needed for nausea vomiting control. Given rash will cover for shingles with medication called valacyclovir. Please take medication as prescribed until course is complete. Please take Tylenol (2 pills, 650 mg), ibuprofen (2 pills, 400 mg) every 6 hours as needed for pain and fever control. Please return to the emergency department if your symptoms change or worsen. Specifically develop headache, confusion, fever, neck stiffness, vomiting or if you cannot tolerate prescribed medications Please follow with your primary care physician for further outpatient evaluation and management. Print Language: Arabic Disposition Disposition: Home, Self Care
--- NOTE | 2025-08-04 22:09 | EKG12_ITS ---
Test Reason : NAUSEA N V Blood Pressure : */* mmHG Vent. Rate : 77 BPM Atrial Rate : 77 BPM P-R Int : 142 ms QRS Dur : 102 ms QT Int : 386 ms P-R-T Axes : 49 37 40 degrees QTcB Int : 436 ms Normal sinus rhythm Normal ECG Confirmed by Александр Doss ([id number]), editor city [place]OO HARRIS ([id number]) on 08/06/2025 5:59:48 AM Referred By: TA Confirmed By: Александр Doss
[2025-08-04 22:20] LABS: Hematocrit 40.9 % (40-54); Hemoglobin 14.5 g/dL (13.0-16.5); Immature Granulocytes Count 0.030 X10^3/uL (0.0-0.0); Mean Corp Hgb Conc 35.5 g/dL (32-36); Mean Corpuscular Volume 88.1 fL (80-94); Mean Platelet Vol. 9.6 fl (6.2-12.0); NRBC Flagged by Analyzer 0 % (0-5); Platelet Count 262 K/mm3 (150-450); RBC Distribution Width CV 12.6 % (11.6-14.6); RBC Distribution Width SD 40.3 fl (35.1-43.9); Red Blood Count 4.64 M/mm3 (4.6-6.2); White Blood Count 8.4 K/mm3 (4.4-11.0)
[2025-08-04] MEDS: 0.9% Normal Saline (1000mL) 1,000 ML 1000 ML IV (22:32)
[2025-08-04 22:37] LABS: AST(SGOT) 21 U/L (<=37); Alanine Aminotransfer ALT/SGPT 13 U/L (<=46); Albumin, Serum 4.1 g/dL (3.5-5.0); Alkaline Phosphatase 93 U/L (40-129); Anion Gap 12 (5-15); BUN 4 mg/dL (4-19); BUN/Creat Ratio 4.0 RATIO (10-20); Calcium,Total 8.9 mg/dL (7.6-11.0); Carbon Dioxide 25.5 mmol/L (21.0-32.0); Chloride 102 mmol/L (98-108); Estimated Creatinine Clearance 74.47 ml/min (50-250); Globulin 2.3 g/dL (2.2-4.2); Glucose 73 mg/dL (70-99); Lipase 15 U/L (13-75); Potassium 3.5 mmol/L (3.3-5.1)
[2025-08-04 23:00] VITALS: BP 108/62; PULSE 74; RESP 14; O2SAT 95
[2025-08-04 23:46] VITALS: BP 124/75; PULSE 70; RESP 18; TEMP 36.3; O2SAT 99
== END 2025-08-04 23:53 | disposition home or self-care (01) ==
PROVIDERS: Emergency Provider Emergency Medicine; Visit Provider Emergency Medicine
DX: R11.2 Nausea with vomiting, unspecified (principal); E11.9 Type 2 diabetes mellitus without complications; B02.9 Zoster without complications; I10 Essential (primary) hypertension
CPT/HCPCS: 80053; 83690; 85025; 93005; 96361; 96374; 99283; A4216; J2405